=== PATIENT | male | born 1955 | race Caucasian/White ===

== ENCOUNTER 2018-03-25 19:13 | Inpatient (IN) | payer OTHER ==
--- NOTE | 2018-03-25 19:26 | PDOC ---
Rapid Medical Evaluation Chief Complaint: Back Pain Time Seen by Provider: 03/25/18 19:20 Medical Evaluation: 03/25/18 19:22 I have performed a brief in person evaluation of this patient. The patient present with a CC of: Back Pain Pt is a 62 YO male who states he has upper back pain x 5 days. Denies injury or trauma. Pertinent PE findings: Constitutional: pt is shaky at triage Lungs Clear Heart: Tachy, no murmurs, rubs or gallops Abd: Soft, non distended. MS: Pain to upper shoulders bilaterally Neuro: Appropriate affect Psych: Appropriate affect. Respiratory Protocol with Blood cultures and patient immediately to the back The patient will proceed to the ED for further evaluation: Discharge Disposition - Diagnosis Fever Qualifiers: Fever type: unspecified Qualified Code(s): R50.9 - Fever, unspecified - Referrals - Patient Instructions - Post Discharge Activity
[2018-03-25] MEDS ORDERED: ACETAMINOPHEN 1000 MG/100 ML VIAL (NON FORMULARY) IVPB ONE ×2 (19:48→21:54)
[2018-03-25] MEDS ORDERED: SODIUM CHLORIDE 0.9% 1000 ML INFUS.BAG IV ONE ×3 (19:48→21:04)
[2018-03-25] MEDS ORDERED: ALBUTEROL SO4 2.5/IPRATROPIUM 0.5 INH SOL 3 ML VIAL.NEB. NEB ONE ×2 (19:48→20:05)
--- NOTE | 2018-03-25 19:49 | PDOC ---
Attending Attestation - HPI HPI: 03/25/18 20:18 The patient is a 62 year old male with a significant past medical history of DM , HTN, and HLD who presents to the ED with complaints of generalized weakness for several days. As per son patient reports weakness and a dry cough in the morning for 5 days and states the patient developed a subjective fever 3 days ago. Patient states he hit his right left against a box and developed a wound a week ago. Patient reports a loss of appetite earlier today and states he only had juice. Denies chest pain or shortness of breath. Denies abdominal pain, nausea, vomiting, or diarrhea. Denies any other symptoms. - Physicial Exam PE: 03/25/18 20:18 Constitutional:+ Hot to touch. Awake,alert, oriented. No acute distress. Head: Normocephalic. Atraumatic Eyes: + Mild icterus of the eye. PERRL. EOMI. ENT: + Poor dentition, dry posterior pharynx. Posterior pharynx without exudates or erythema. Uvula midline. Neck: Supple. Full ROM. No lymphadenopathy. Cardiovascular: + Tachycardic. Regular rhythm. S1, S2 regular. Distal pulses are 2+ and symmetric. Pulmonary/Chest: + Tachypneic. Crackles at the bilateral bases, left greater than right. No wheezing. Abdominal: Soft and non-distended. There is no tenderness. No rebound, guarding or rigidity. No organomegaly. No palpable masses. Good bowel sounds. Back: No CVA tenderness. Musculoskeletal: No edema. No cyanosis. No clubbing. Full range of motion in all extremities. Nocalf tenderness. Radial/pedal pulses are intact and 2+ bilaterally Skin: + Erythematous half dollar size wound, fluctuant in the center, warm, no lymphangitic spread. Pedal pulses intact. Neurological: Alert and oriented to person, place, and time. Cranial nerves II -XII are grossly intact. Normal speech. Strength is grossly symmetric. No sensory deficits. Psychiatric: Good eye contact. Normal interaction, affect and behavior. <Lele Javier - Last Filed: 03/25/18 20:18> - Resident Resident Name: Sasha Garcia - ED Attending Attestation I have performed the following: I have examined & evaluated the patient, The case was reviewed & discussed with the resident, I agree w/resident's findings & plan, Exceptions are as noted - Critical Care Time Total Critical Care Time: 45 Critical Care Statement: The care of this patient involved high complexity decision making to prevent further life threatening deterioration of the patient 's condition and/or to evaluate & treat vital organ system(s) failure or risk of failure. - Medical Decision Making 03/25/18 19:49 I, Dr. Roxana Fatima, DO, attest that this document has been prepared under my direction and personally reviewed by me in its entirety. I further attest, that it accurately reflects all work, treatment, procedures and medical decision -making performed by me. 03/25/18 20:46 a/p: 62yo male with fever, 5 days of weakness -pt with cough in the am -no rhinorrhea, no sore throat, no abd pain, no n/v/d, urinary freq -pt with wound to RLE - will update tetanus, no lymphangitic spread -will send labs, cultures, FLU, cxr, ekg -will give ivf hydration, will start broad spectrum abx -will need admission 03/25/18 20:51 pt with white out of L lung on xray -broad spectrum abx ordered -will obtain ct chest -resident discussed the case with LUIS -wound culture obtained from RLE -pt with hypoxia - will obtain ABG -will discuss with ICU resident for admission 03/25/18 21:37 bedside ultrasound shows B lines - will place on bipap <Roxana Fatima - Last Filed: 03/25/18 21:38> Heart Score/ECG Review - ECG Intrepretation Comment:: 03/25/18 21:37 ekg: afib w rvr - per inpt admitting team will start iv amio <Roxana Fatima - Last Filed: 03/25/18 21:38> Attestations - Attestations 03/25/18 20:18 Documentation prepared by Lele Javier, acting as medical clerical assistant for Roxana Fatima DO <Lele Javier - Last Filed: 03/25/18 20:18>
--- NOTE | 2018-03-25 20:04 | PDOC ---
History of Present Illness - General Chief Complaint: Back Pain Stated Complaint: PAIN Time Seen by Provider: 03/25/18 19:20 - History of Present Illness Initial Comments: 03/25/18 19:57 62 year old male with a history of DMII, hypertension, hyperlipidemia, presents to the emergency room with complaints of weakness and endorses fever at home, non productive cough for the past three days. Denies chills, n, v, chest pain, shortness of breath, abdominal pain, diarrhea. In ED fever 102.8F, tachycardic, normotensive, hypoxic at 88% oxygen PMHx: as above PSX: none Social history: denies alcohol or drug use; lives in [place] Allergies: none 03/25/18 20:10 Past History - Past Medical History Allergies/Adverse Reactions: Allergies Allergy/AdvReac Type Severity Reaction Status Date / Time No Known Allergies Allergy Verified 03/25/18 19:28 COPD: No - Suicide/Smoking/Psychosocial Hx Smoking History: Never smoked Have you smoked in the past 12 months: No Information on smoking cessation initiated: No Hx Alcohol Use: No Drug/Substance Use Hx: No Substance Use Type: None Review of Systems - Review of Systems Comments:: 03/25/18 20:11 General: +fevers, no chills, no weight or appetite change, +malaise HEENT: No changes in vision, no changes in hearing, no congestion, no sore throat CV: No chest pain, no palpitations, no LE edema Pulm: No SOB, no cough, no wheezing GI: No nausea or vomiting, no change in bowel habits, no melena : No frequency, no urgency, no dysuria Musc: No back pain, no joint swelling, no recent injury Skin: No rash, no lesions, no erythema Endo: No excessive thirst, no heat/cold intolerance Heme: No unusual bruising or bleeding, no swollen glands Neuro: No syncope, no numbness/tingling, no focal weakness Vasc: No claudication Psych: No recent change in mood, no SI or HI 03/25/18 20:26 *Physical Exam - Vital Signs Last Vital Signs Temp Pulse Resp BP Pulse Ox 102.8 F H 110 H 24 H 131/70 88 L 03/25/18 19:22 03/25/18 19:22 03/25/18 19:22 03/25/18 19:22 03/25/18 19:22 - Physical Exam Comments: 03/25/18 20:11 General: Comfortable, no acute distress HEENT: PERRL, EOMI, MMM, voice normal, normal neck ROM, no LAD; dry mucus membranes Cards: RRR, no murmur appreciated Pulm: decreased BS b/l; mild bibasilar crackles Abd: Soft, nontender, +distended, +BS; : No CVA tenderness Rectal: Normal tone, no blood noted, no perianal lesions Ext: Atraumatic. No LE edema. ROM intact. Strength 5/5 and equal bilaterally; RLE anterior 2x2cm skin abcess with induration and surrounding erythema Vasc: Extremities WWP. Palpable radial and pedal pulses bilaterally Skin: Normal color, no rashes ; dry; Neuro: A&Ox3, CN grossly intact, normal speech, motor/sensory grossly intact and symmetric Psych: Mood appropriate to situation 03/25/18 20:27 ED Treatment Course - LABORATORY CBC & Chemistry Diagram: 03/25/18 19:55 03/25/18 19:55 - RADIOLOGY Radiology Studies Ordered: Category Date Time Status CXRPORT [CHEST X-RAY PORTABLE*] [RAD] Stat Radiology 03/25/18 19:50 Ordered Medical Decision Making - Critical Care Time Total Critical Care Time (minutes): 90 Critical Care Statement: The care of this patient involved high complexity decision making to prevent further life threatening deterioration of the patient 's condition and/or to evaluate & treat vital organ system(s) failure or risk of failure. - Medical Decision Making 03/25/18 20:29 This is a 62 year old male with a history of DMII, HTN, HLD with complaints of with fever and weakness. Sepsis protocol. Ancillary studies to rule out source of infection. #Sepsis secondary to PNA/left lung white out/; r/o pulm obstructing mass -white out left lung field -start IVF -rojas culture -IV antibiotics; van/zosyn -lactic acid; 2.4; f/u repeat -chest CT with contrast to rule out obstructing mass; #hypoxic respiratory failure sec to pna/ vs obstruction -abg -start high flow oxygen; titrate as for oxygen > 92% -started to desat on non rebreather #hyperglycemia secondary to DM with sepsis picture -will give IVF to hydrate #RLE anterior sahu abscess: -I&D at bedside; with puss -f/u wound culture Disposition: admit to ICU discussed with ICU resident and Toney attending 03/25/18 21:45 -patient now with new atrial fibrillation with rvr; IVP cardizem given; start amnio drip -start heparin drip started chadvasc2 score is 2; intermediate risk -bedside ultrasound echo done by ED attending; showing normal EF; pulm edema; with B lines -will start BiPAP f/u ABG 03/25/18 23:04 -patient still tachy in 180s on amnio driip; cardizem drip started; tirtate up as tolerated 03/26/18 03:46 Patient admitted to the ICU *DC/Admit/Observation/Transfer Diagnosis at time of Disposition: Acute respiratory failure with hypoxia Fever Qualifiers: Fever type: unspecified Qualified Code(s): R50.9 - Fever, unspecified Sepsis Qualifiers: Sepsis type: sepsis due to unspecified organism Qualified Code(s): A41.9 - Sepsis, unspecified organism - Discharge Dispostion Condition at time of disposition: Fair Decision to Admit order: Yes - Referrals - Patient Instructions - Post Discharge Activity
[2018-03-25] MEDS ORDERED: DIPHTH,PERTUSS(ACELL),TET 0.5 ML DISP.SYRIN IM ONE (20:05)
[2018-03-25] MEDS ORDERED: ACETAMINOPHEN INJECTION 100 ML IVPB ONE (20:05)
[2018-03-25] MEDS ORDERED: VANCOMYCIN 1 GRAM (PRE-DOCKED) 1,000 MG/250 ML BAG IVPB ONE ×2 (20:08→20:30)
[2018-03-25] MEDS ORDERED: PIPERACILLIN/TAZOB 4.5 GM 4.5 GM in DEXTROSE 5%-WATER 100 ML IVPB ONE (20:09)
[2018-03-25 20:10] LABS: BASO % 0.2 % (0-2.0); EOS % 0.1 % (0-4.5); HEMATOCRIT 41.4 % (35.4-49); LYMPH % 3.5 % (8-40); MCH 26.4 pg (25.7-33.7); MCHC 33.8 g/dl (32.0-35.9); MEAN CELL VOLUME 78.3 fl (80-96); MEAN PLT VOLUME 11.1 fl (7.5-11.1); MONO % 7.5 % (3.8-10.2); NEUT % 88.7 % (42.8-82.8); PLATELET COUNT 173 K/MM3 (134-434); RBC 5.29 M/mm3 (4.00-5.60); RDW 14.8 % (11.9-15.9); WHITE BLOOD COUNT 26.8 K/mm3 (4.0-10.0)
[2018-03-25 20:11] LABS: VENOUS PC02 32.5 mmHg (38-52); VENOUS PH 7.44 (7.32-7.42); VENOUS PO2 25.5 mmHg (28-48)
[2018-03-25 20:25] LABS: INR 1.47 (0.83-1.09); PROTHROMBIN TIME (PATIENT) 17.4 SEC (9.7-13.0)
[2018-03-25 20:26] LABS: URINE APPEARANCE CLEAR; URINE BILIRUBIN NEGATIVE (<2.0 mg/dL); URINE COLOR YELLOW; URINE GLUCOSE (UA) 3+ (NEGATIVE); URINE KETONE 1+ (NEGATIVE); URINE LEUK ESTERASE NEGATIVE (NEGATIVE); URINE NITRITE NEGATIVE (NEGATIVE); URINE PROTEIN 2+ (NEGATIVE); URINE UROBILINOGEN NEGATIVE mg/dL (0.2-1.0)
[2018-03-25 20:27] LABS: ACTIVATED PTT 34.4 SECONDS (25.2-36.5)
[2018-03-25] MEDS ORDERED: PIPERACILLIN/TAZOB 4.5 GM 4.5 GM/100 ML BAG IVPB ONE ×2 (20:29→20:31)
[2018-03-25 20:48] LABS: ALK PHOS 93 U/L (45-117); ANION GAP 17 MMOL/L (8-16); BILIRUBIN,TOTAL 1.2 mg/dL (0.2-1); BLOOD UREA NITROGEN 22 mg/dL (7-18); CALCIUM 7.7 mg/dL (8.5-10.1); CHLORIDE 96 mmol/L (98-107); CO2 21 mmol/L (21-32); CREATININE 1.2 mg/dL (0.55-1.3); SGPT/ALT 26 U/L (13-61); SODIUM 134 mmol/L (136-145); TOT PROT 6.2 g/dl (6.4-8.2)
[2018-03-25 20:49] LABS: POTASSIUM 4.4 mmol/L (3.5-5.1); SGOT/AST 27 U/L (15-37)
[2018-03-25 20:50] LABS: GLUCOSE,RANDOM 427 mg/dL (74-106)
[2018-03-25] MEDS ORDERED: INSULIN REGULAR HUMAN 100 UNITS/ML *VIAL SQ ONE (21:28)
[2018-03-25] MEDS ORDERED: SODIUM CHLORIDE 1,000 ML IV STA (21:29)
[2018-03-25] MEDS ORDERED: INSULIN REGULAR HUMAN 100 UNITS/ML *VIAL ONE (21:31)
[2018-03-25] MEDS ORDERED: dilTIAZem HCL 50 MG/10 ML - 10 ML VIAL IVPUSH ONE ×3 (21:39→23:11)
[2018-03-25] MEDS ORDERED: AMIODARONE HCL 150 MG/3 ML VIAL IVPUSH ONE (21:47)
[2018-03-25 21:56] LABS: ARTERIAL BLD GAS O2 SATURATION 94.2 % (90-98.9); ARTERIAL BLOOD GAS BASE EXCESS -6.1 meq/l (-2-2); ARTERIAL BLOOD GAS PCO2 27.5 mmHg (35-45); ARTERIAL BLOOD GAS PO2 80.6 mmHg (80-100)
[2018-03-25 21:58] LABS: ALLENS TEST POSITIVE
[2018-03-25] MEDS ORDERED: SODIUM CHLORIDE 1,000 ML IV SCH (22:00)
[2018-03-25] MEDS ORDERED: AMIODARONE IN DEXTROSE,ISO-OSM 360 MG/200 ML BAG IVPB SCH (22:00)
[2018-03-25 22:02] LABS: CARBOXYHEMOGLOBIN 0.6 gm% (0.5-2.0)
[2018-03-25] MEDS ORDERED: dilTIAZem HCL 125 MG/25 ML - 25 ML VIAL ONE (22:12)
[2018-03-25 22:18] LABS: PLATELET ESTIMATE ADEQUATE
[2018-03-25 22:23] LABS: PHOSPHOROUS 3.2 mg/dL (2.5-4.9)
[2018-03-25 22:24] LABS: MAGNESIUM 1.7 mg/dL (1.8-2.4)
[2018-03-25] MEDS ORDERED: HEPARIN NA (PORCINE) 5,000 UNITS/ML 1ML VIAL IVPUSH PRN ×2 (22:34)
[2018-03-25] MEDS ORDERED: dilTIAZem HCL 50 MG/10 ML - 10 ML VIAL ONE (22:42)
--- NOTE | 2018-03-25 22:48 | HP ---
CHIEF COMPLAINT: shortness of breath, fever, chills, weakness PCP: [facility] HISTORY OF PRESENT ILLNESS: Patient is a 62 year old male with history of DM, HTN, HLD presents with complaint of shortness of breath for past five days. Denies inciting event, or sick contacts. Endorses subjective fevers, chills, generalized weakness and malaise. In addition endorses non productive cough for the past three days. He has not received flu vaccine or pneumonia vaccine. Denies, chest pain, palpitations, abdominal pain, nausea, vomiting, diarrhea, constipation, fall, loss of consciousness. Admits that he hurt his right lower extremity against a box a week ago while at work, however did not think much of it. He did not attempt to cover the wound. Denies pain or any purulent or sanguinous drainage from the wound. ER course was notable for: (1) Vancomycin, Zosyn, Ofirmev, (2) EKG: Afib at 154 bpm, QTc 483ms, no prior history of Afib (3) Chest xray- white out left lung. WBC 26.8. 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 Lives alone at home in the [place]. Family History: denies significant family history. Allergies No Known Allergies Allergy (Verified 03/25/18 19:28) HOME MEDICATIONS: REVIEW OF SYSTEMS As per HPI PHYSICAL EXAMINATION Vital Signs - 24 hr 03/25/18 03/25/18 03/25/18 19:22 20:55 22:06 Temperature 102.8 F H Pulse Rate 110 H Pulse Rate [ 107 H Apical] Respiratory 24 H 36 H Rate Blood Pressure 131/70 Blood Pressure 141/69 [Left Arm] O2 Sat by Pulse 88 L 93 L 98 Oximetry (%) GENERAL: Diaphoretic, male. Awake, alert, and fully oriented, in respiratory distress. HEAD: Normal with no signs of trauma. EYES: Pupils equal, round and reactive to light, extraocular movements intact without nystagmus. Sclera anicteric, conjunctiva clear b/l. EARS, NOSE, THROAT: Oropharynx clear without exudates. Dry mucous membranes. NECK: Normal range of motion, supple without lymphadenopathy. LUNGS: Patient is using accessory muscles of respiration. Tachypnic. Good inspiratory effort with poor air entry worse on left side. Rhonchi and crackles auscultated b/l. No wheezing. HEART: Tachycardic. Irregular rate and rhythm. Normal S1 and S2 without murmur, rub or gallop. ABDOMEN: Distended, firm. Nontender to light and deep palpation. Normoactive bowel sounds X4 quadrants. No guarding, no rebound tenderness. No hepatomegaly palpated or percussed. MUSCULOSKELETAL: Normal range of motion at all joints. No bony deformities or tenderness. UPPER EXTREMITIES: 2+ radial pulses b/l, warm, well-perfused. LOWER EXTREMITIES: 2+ dorsalis pedis pulses, warm, No calf tenderness. No peripheral edema n/l. NEUROLOGICAL: Cranial nerves II-XII intact. Normal speech. PSYCHIATRIC: Cooperative. Good eye contact. Appropriate mood and affect. SKIN: Diaphoretic. 1cm x 1cm Lesion noted right anterior leg, erythematous. No drainage, no bleeding. Nontender to palpation. Additional 2cm laceration lower right extremity, healing. Laboratory Results - last 24 hr 03/25/18 03/25/18 03/25/18 19:55 19:55 19:55 WBC 26.8 H RBC 5.29 Hgb 14.0 Hct 41.4 MCV 78.3 L MCH 26.4 MCHC 33.8 RDW 14.8 Plt Count 173 MPV 11.1 Absolute Neuts (auto) 23.8 H Neutrophils % 88.7 H Neutrophils % (Manual) 86.0 H Band Neutrophils % 8.0 Lymphocytes % 3.5 L Lymphocytes % (Manual) 4.0 L Monocytes % 7.5 Monocytes % (Manual) 2 L Eosinophils % 0.1 Eosinophils % (Manual) 0.0 Basophils % 0.2 Basophils % (Manual) 0.0 Nucleated RBC % 0 Platelet Estimate Adequate Platelet Comment Large platelets PT with INR 17.40 H INR 1.47 H PTT (Actin FS) 34.4 Puncture Site ABG pH ABG pCO2 at Pt Temp ABG pO2 at Pt Temp ABG HCO3 ABG O2 Sat (Measured) ABG O2 Content ABG Base Excess Petey Test VBG pH 7.44 H POC VBG pCO2 32.5 L POC VBG pO2 25.5 L Mixed VBG HCO3 21.7 Carboxyhemoglobin Methemoglobin Oxygen Flow Rate Sodium Potassium Chloride Carbon Dioxide Anion Gap BUN Creatinine Creat Clearance w eGFR Random Glucose Lactic Acid Calcium Phosphorus Magnesium Total Bilirubin AST ALT Alkaline Phosphatase Troponin I Total Protein Albumin Urine Color Urine Appearance Urine pH Ur Specific [place] Urine Protein Urine Glucose (UA) Urine Ketones Urine Blood Urine Nitrite Urine Bilirubin Urine Urobilinogen Ur Leukocyte Esterase Urine WBC (Auto) Urine RBC (Auto) 03/25/18 03/25/18 03/25/18 19:55 19:55 20:10 WBC RBC Hgb Hct MCV MCH MCHC RDW Plt Count MPV Absolute Neuts (auto) Neutrophils % Neutrophils % (Manual) Band Neutrophils % Lymphocytes % Lymphocytes % (Manual) Monocytes % Monocytes % (Manual) Eosinophils % Eosinophils % (Manual) Basophils % Basophils % (Manual) Nucleated RBC % Platelet Estimate Platelet Comment PT with INR INR PTT (Actin FS) Puncture Site ABG pH ABG pCO2 at Pt Temp ABG pO2 at Pt Temp ABG HCO3 ABG O2 Sat (Measured) ABG O2 Content ABG Base Excess Petey Test VBG pH POC VBG pCO2 POC VBG pO2 Mixed VBG HCO3 Carboxyhemoglobin Methemoglobin Oxygen Flow Rate Sodium 134 L Potassium 4.4 Chloride 96 L Carbon Dioxide 21 Anion Gap 17 H BUN 22 H Creatinine 1.2 Creat Clearance w eGFR > 60 Random Glucose 427 H* Lactic Acid 2.4 H* Calcium 7.7 L Phosphorus Magnesium Total Bilirubin 1.2 H AST 27 ALT 26 Alkaline Phosphatase 93 Troponin I 0.02 Total Protein 6.2 L Albumin 2.0 L Urine Color Yellow Urine Appearance Clear Urine pH 6.0 Ur Specific [place] 1.028 Urine Protein 2+ H Urine Glucose (UA) 3+ H Urine Ketones 1+ H Urine Blood 2+ H Urine Nitrite Negative Urine Bilirubin Negative Urine Urobilinogen Negative Ur Leukocyte Esterase Negative Urine WBC (Auto) 2 Urine RBC (Auto) 9 03/25/18 03/25/18 03/25/18 20:50 21:00 21:35 WBC RBC Hgb Hct MCV MCH MCHC RDW Plt Count MPV Absolute Neuts (auto) Neutrophils % Neutrophils % (Manual) Band Neutrophils % Lymphocytes % Lymphocytes % (Manual) Monocytes % Monocytes % (Manual) Eosinophils % Eosinophils % (Manual) Basophils % Basophils % (Manual) Nucleated RBC % Platelet Estimate Platelet Comment PT with INR INR PTT (Actin FS) Puncture Site Right radial ABG pH 7.40 ABG pCO2 at Pt Temp 27.5 L ABG pO2 at Pt Temp 80.6 ABG HCO3 16.8 L ABG O2 Sat (Measured) 94.2 ABG O2 Content 18.3 ABG Base Excess -6.1 L Petey Test Positive VBG pH POC VBG pCO2 POC VBG pO2 Mixed VBG HCO3 Carboxyhemoglobin 0.6 Methemoglobin 1.5 Oxygen Flow Rate No Result Required. Sodium Potassium Chloride Carbon Dioxide Anion Gap BUN Creatinine Creat Clearance w eGFR Random Glucose Lactic Acid Calcium Phosphorus 3.2 Magnesium 1.7 L Total Bilirubin AST ALT Alkaline Phosphatase Troponin I Total Protein Albumin Urine Color Urine Appearance Urine pH Ur Specific [place] Urine Protein Urine Glucose (UA) Urine Ketones Urine Blood Urine Nitrite Urine Bilirubin Urine Urobilinogen Ur Leukocyte Esterase Urine WBC (Auto) Urine RBC (Auto) ASSESSMENT/PLAN: Patient is a 62 year old male with history of DM, HTN, HLD presents with complaint of shortness of breath for past five days. Sepsis secondary to pneumonia -Chest xray shows white out of left lung. -Patient received Vancomycin and Zosyn in ED -Begin Ceftriaxone, Azithromycin, Clindamycin -Lactic acid 2.4. Will follow. -IV normal saline 2,500mL bolus -ID consult (Dr. Brand) -Pulmonology consult (Dr. Stephens) -Infectious disease consult (Dr. Brand) -F/U chest CT Acute respiratory failure -Likely secondary to the pneumonia -Patient currently saturating 98% on BiPAP FiO2 100% -F/U ABG Afib -Patient denies history of Afib, or any cardiac history in past. -CHADsVASC score of 2 -Heparin drip -Amiodarone drip, and 150mg IV push -Diltiazem drip, and 50mg IV push -Cardiac monitoring -F/U Cardiology consult (Dr. Becerra) Diabetes mellitus, likely DKA -Received 20 units novolog in ED. -Insulin drip initiated -Blood glucose fingerstick Q1H -BMP Q4H -IV normal saline +20meq KCL at 100mL/ hour -F/U HbA1c Right lower extremity wound -Patient received Boostrix in ED -F/U wound culture -F/U Infectious disease consult (Dr. Brand) Elevated INR -Patient denies taking Coumadin, or any blood thinners. Denies alcohol use. -F/U CT abdomen/ pelvis to evaluate for possible hepatic pathology. Hypertension -Patient unsure which medication he takes for his blood pressure. -Patient will require medicine reconciliation to reinstate home medications. FEN -IV normal saline +20meq KCL at 100mL/ hour -Follow CMP -NPO as patient currently on BiPAP Prophylaxis -Patient is on Heparin drip for Afib Disposition -Admit to ICU for care Visit type - Emergency Visit Emergency Visit: Yes ED Registration Date: 03/25/18 Care time: The patient presented to the Emergency Department on the above date and was hospitalized for further evaluation of their emergent condition. - New Patient This patient is new to me today: Yes Date on this admission: 03/26/18 - Critical Care Critical Care patient: Yes Total Critical Care Time (in minutes): 45 Critical Care Statement: The care of this patient involved high complexity decision making to prevent further life threatening deterioration of the patient 's condition and/or to evaluate & treat vital organ system(s) failure or risk of failure.
[2018-03-25] MEDS ORDERED: AMIODARONE HCL 150 MG/3 ML VIAL ONE (22:49)
[2018-03-25] MEDS ORDERED: DILTIAZEM INJECTION 125 MG in DEXTROSE 5%-WATER - 100 ML IVPB SCH (23:15)
[2018-03-25] MEDS ORDERED: HEPARIN INFUSION - 25,000 UNITS/500 ML INFUS.BAG IVPB ONE (23:28)
[2018-03-25] MEDS: HEPARIN - 25,000 UNIT in SODIUM CHLORIDE 495 ML IV SCH (23:54)
[2018-03-26] MEDS ORDERED: INSULIN REGULAR HUMAN 100 UNITS/ML *VIAL SQ ONE ×2 (00:16→06:32)
[2018-03-26 00:24] LABS: ARTERIAL BLD GAS O2 SATURATION 94.7 % (90-98.9); ARTERIAL BLOOD GAS BASE EXCESS -6.1 meq/l (-2-2); ARTERIAL BLOOD GAS PCO2 29.8 mmHg (35-45); ARTERIAL BLOOD GAS PO2 84.1 mmHg (80-100); ARTERIAL BLOOD GAS pH 7.38 (7.35-7.45)
[2018-03-26] MEDS ORDERED: CLINDAMYCIN 900 MG PREMIX IVPB 900 MG/50 ML BAG IVPB ONE ×2 (00:24→06:15)
[2018-03-26] MEDS: CLINDAMYCIN 900 MG PREMIX IVPB 900 MG/50 ML BAG IVPB SCH ×3 (00:30→13:16)
[2018-03-26] MEDS ORDERED: INSULIN REGULAR HUMAN 100 UNITS/ML *VIAL ONE ×2 (00:32→04:22)
[2018-03-26] MEDS ORDERED: MAGNESIUM SULF 50% (8.12 MEQ/2 ML-1 GM VIAL) IVPB ONE ×2 (00:37→02:06)
[2018-03-26] MEDS ORDERED: MAGNESIUM 1GM/D5W - 1 GM/100 ML IVPB IVPB ONE (01:02)
[2018-03-26] MEDS ORDERED: PIPERACILLIN/TAZOB 4.5 GM 4.5 GM in DEXTROSE 5%-WATER 100 ML IVPB SCH (03:00)
[2018-03-26] MEDS ORDERED: INSULIN REGULAR 100 UNITS in SODIUM CHLORIDE 99 ML IVPB SCH (03:45)
[2018-03-26 05:37] LABS: BASO % 0.4 % (0-2.0); EOS % 0.2 % (0-4.5); HEMATOCRIT 39.6 % (35.4-49); HEMOGLOBIN 13.3 GM/dL (11.7-16.9); LYMPH % 4.2 % (8-40); MCH 26.4 pg (25.7-33.7); MCHC 33.7 g/dl (32.0-35.9); MEAN CELL VOLUME 78.2 fl (80-96); MEAN PLT VOLUME 10.2 fl (7.5-11.1); MONO % 6.6 % (3.8-10.2); NEUT % 88.6 % (42.8-82.8); PLATELET COUNT 146 K/MM3 (134-434); RBC 5.07 M/mm3 (4.00-5.60); RDW 14.7 % (11.9-15.9); WHITE BLOOD COUNT 24.7 K/mm3 (4.0-10.0)
--- NOTE | 2018-03-26 05:38 | PN ---
Teaching Attending Note Name of Resident: Regla Murry ATTENDING PHYSICIAN STATEMENT I saw and evaluated the patient. I reviewed the resident's note and discussed the case with the resident. I agree with the resident's findings and plan as documented. SUBJECTIVE: Seen and examined; he is a 62 y/o AAM with a PMH significant for HTN, HLD, DM. He presents to the ER for 5 days of worsening SOB, malaise, fatigue. He is a generally active and healthy individual per the son. He was found to be tachycardic 150+ with whiteout of the L-lung on the CXR alongside marked hypoxia. He is Korean speaking only; myself, nurse, and son were present for translation. He denied chest pain and was actually indicating he felt better than he did earlier in the day. He was found to have an anion gap positive metabolic acidosis with respiratory compensation, negative flu. CT chest was obtained once the patient was found to have a bilateral pneumonia with L side with near complete opacification on the preliminary read with the final report pending. Initially in the ER I requested the patient to be placed on amiodarone for atrial fibrillation after he recieved the 30cc/kg and electrolytes were optimized. He got the bolus and was started on protocol. As he was still down in the ER he was started on diltiazem by ER staff as the HR hadn't decreased. He was also started on BiPap. Aggressive hydration and a push of IV insulin were ordered initially for the hyperglycemia; IM service started the patient on an insulin drip with additional bolus of 8. Planning to move him to a [facility] , but he ended up desaturating on BiPap and the decision was made to intubate. He has 3 good #18 peripherals but now they are all used up. He thus was consented for CVC at the end of the shift to expidite management for day team. ROS done and negative if not in HPI PMH and PSH per chart Social history lives at home with family, no EtOH, no tobacco FH asked and noncontributory OBJECTIVE: AAOx3, NAD, resting in bed. Tachypnic Tachycardic with irregular rhythm, no rosangela mgr Left side with almost no air motion, crackles scattered throughout right, sym expansion Trachea midline, no JVD NT ND +BS all 4 quads No edema; bandage over LE wound CN2-12 grossly intact, sensory and motor intact, no FND Appropriate mood and affect ABG with metabolic acidosis with respiratory compensation BMP shows anion gap positive metabolic acidosis with glucose 400s CBC reviewed; WBC 26 with neutrophilia, no anemia CXR shows whiteout of lung; CT read pending No prior records at this facility Negative flu Cultures pending ASSESSMENT AND PLAN: 1) Acute Hypoxic Respiratory Failure -Secondary to pneumonia (community acquired; awaiting final read to discuss any occult findings) -Intubating, managing in ICU, defer to pulmonary. Likely the driving force of the patient's tachycardia (demand, etc.); please see #4 for discussion regarding this 2) Atrial Fibrillation with RVR -Likely spurred by the acute infectious process, RVR likely made worse due to low O2 driving up demand. -I placed him on Amio drip; ER placed on diltiazem after this as it was decided that the HR was still too high. On IV infusions. CHADSVASC2 is 2 placing him in moderately high qualifying him for anticoag and his bleed risk is low so will place him on heparin ggt. -Ideally want him off the diltiazem due to the underlying likely septic process. Due to this we will go ahead and continue the amio protocol, optimize respiratory status, and try to get him off diltiazem. -Consulting cardiology, resident has reached out -Checking echo 3) Metabolic acidosis with likely Diabetic Ketoacidosis -Driven by pneumonia; hyperglycemia and acidosis didnt resolve with fluids and initial ER bolus so we rebolused and placed on DKA protocol. Monitor and treat as needed. Place on SSI and long acting when off drip. 4) Left Lung Whiteout likely 2/2 PNA -Likely driving the entire clinical presentation. Would be CAP; it was difficult to rule out any underlying masses or post obstructive picture so we will cover for CAP with clindamycin in addition to cef and azithro due to the risk of anaerobes. Cultures blood and sputum have been sent. -Consult ID in the morning -Management of the acute hypoxic RF from pulmonary medicine; intubate and place mechanical ventillation 5) Hypoalbuminemia -Check prealbumin, poor prognostic marker 6) RLE Wound -Drained by ER resident and sent for culture; looked minor 7) HTN -Hold antihypertensives 8) HLD -Nonacute 9) DM -Per DKA management Full Code
--- NOTE | 2018-03-26 05:40 | CONSULT ---
Consultation: REQUESTING PROVIDER: Dr. Kuhn CONSULT REQUEST: We have been asked to medically evaluate this patient for Sepsis, DKA, Acute hypoxic respiratory failure. HISTORY OF PRESENT ILLNESS: Patient is a 62 year old male with a PMHx of NIDDMII, HTN, HLD who presented to the ED for worsening shortness of breath that started five days ago associated with fever, chills, and weakness. Patient also reports a constant non- productive cough that started 3-4 days ago that worsened his shortness of breath , prompting this hospital visit. Patient denies being around sick patients recently. Denies receiving the flu vaccine this season or the pneumonia vaccine. Patient. Patient denies any history of smoking of cancer in the family, specifically lung cancer. Patient is currently resting in bed and offers no other complaints except for some shortness of breath that improved with BIPAP. However, patient still remains tachypneic. Otherwise, patient denies any chest pain, palpitations, abdominal pain, nausea, vomiting, loss of consciousness, diarrhea, constipation, dysuria, hematuria, urgency, frequency. In the ED patient was found to be septic with fever of 102.8, tachycardic in the 140's and Afib w/rvr, hypoxic at 88% on oxygen. BMP showing anion gap and glucose level of 427 with insulin drip started. Chest X-Ray revealed white out of left lung with CT pending. Patient remained tachycardic in the 140's, reaching to 180's and was started on Cardizem and Amiodarone drip. Patient was given Vancomycin, ZOsyn, and IV Tylenol and admitted to ICU for further monitoring and management. PMHx: NIDDMII, HTN, HLD PSHx: Denies Social Hx: Lives alone. 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 Denies alcohol use Denies illicit drug use Denies history of smoking Family Hx: Denies any family history of medical problems or cancers Allergies: NKDA REVIEW OF SYSTEMS: CONSTITUTIONAL: fever, chills, generalized weakness, malaise Absent: diaphoresis, loss of appetite, weight change HEENT: Absent: rhinorrhea, nasal congestion, throat pain, throat swelling, difficulty swallowing, mouth swelling, ear pain, eye pain, visual changes CARDIOVASCULAR: Absent: chest pain, syncope, palpitations, irregular heart rate, lightheadedness , peripheral edema RESPIRATORY: cough, shortness of breath, dyspnea with exertion Absent: orthopnea, wheezing, stridor, hemoptysis GASTROINTESTINAL: Absent: abdominal pain, abdominal distension, nausea, vomiting, diarrhea, constipation, melena, hematochezia GENITOURINARY: Absent: dysuria, frequency, urgency, hesitancy, hematuria, flank pain, genital pain MUSCULOSKELETAL: Absent: myalgia, arthralgia, joint swelling, back pain, neck pain SKIN: Absent: rash, itching, pallor HEMATOLOGIC/IMMUNOLOGIC: Absent: easy bleeding, easy bruising, lymphadenopathy, frequent infections ENDOCRINE: Absent: unexplained weight gain, unexplained weight loss, heat intolerance, cold intolerance NEUROLOGIC: Absent: headache, focal weakness or paresthesias, dizziness, unsteady gait, seizure, mental status changes, bladder or bowel incontinence PSYCHIATRIC: Absent: anxiety, depression, suicidal or homicidal ideation, hallucinations. PHYSICAL EXAMINATION Vital Signs - 24 hr 03/25/18 03/25/18 03/25/18 19:13 19:22 20:55 Temperature 103.0 F H 102.8 F H Pulse Rate 110 H Pulse Rate [ 107 H Apical] Respiratory 24 H 36 H Rate Blood Pressure 131/70 Blood Pressure 141/69 [Left Arm] O2 Sat by Pulse 100 88 L 93 L Oximetry (%) 03/25/18 03/25/18 03/26/18 21:58 22:06 00:37 Temperature 98.7 F Pulse Rate Pulse Rate [ 142 H Apical] Respiratory 38 H Rate Blood Pressure Blood Pressure 110/91 [Left Arm] O2 Sat by Pulse 100 98 97 Oximetry (%) 03/26/18 02:37 Temperature Pulse Rate Pulse Rate [ Apical] Respiratory Rate Blood Pressure Blood Pressure [Left Arm] O2 Sat by Pulse 97 Oximetry (%) GENERAL: Awake, alert, and fully oriented, tachypneic but in no acute distress. HEAD: Normal with no signs of trauma. EYES: Pupils equal, round and reactive to light, extraocular movements intact, sclera anicteric, conjunctiva clear. EARS, NOSE, THROAT: Oropharynx clear without exudates. Dry mucous membranes. NECK: (-) lymphadenopathy, JVD, or masses. LUNGS: Crackles and Rhonchi bilaterally with use of accessory muscles and tachypneic in the high 30's. Decreased breath sounds of left side. HEART: Tachycardic with regular rhythm ABDOMEN: Soft, obese, nontender, not distended, normoactive bowel sounds, no guarding, no rebound, no masses. No hepatomegaly or splenomegaly. MUSCULOSKELETAL: No CVA tenderness. UPPER EXTREMITIES: No peripheral edema. LOWER EXTREMITIES: 2+ pulses, warm, well-perfused. No calf tenderness. No peripheral edema. NEUROLOGICAL: Cranial nerves II-XII intact. mild difficulty when speaking PSYCHIATRIC: Cooperative. Good eye contact. Appropriate mood and affect. SKIN: (+) erythemetous 1x1 lesion with a 1-2 cm laceration in the right anterior leg, (-) drainage Laboratory Results - last 24 hr 03/25/18 03/25/18 03/25/18 19:55 19:55 19:55 WBC 26.8 H RBC 5.29 Hgb 14.0 Hct 41.4 MCV 78.3 L MCH 26.4 MCHC 33.8 RDW 14.8 Plt Count 173 MPV 11.1 Absolute Neuts (auto) 23.8 H Neutrophils % 88.7 H Neutrophils % (Manual) 86.0 H Band Neutrophils % 8.0 Lymphocytes % 3.5 L Lymphocytes % (Manual) 4.0 L Monocytes % 7.5 Monocytes % (Manual) 2 L Eosinophils % 0.1 Eosinophils % (Manual) 0.0 Basophils % 0.2 Basophils % (Manual) 0.0 Nucleated RBC % 0 Platelet Estimate Adequate Platelet Comment Large platelets PT with INR 17.40 H INR 1.47 H PTT (Actin FS) 34.4 Anticoagulation Therapy Puncture Site ABG pH ABG pCO2 at Pt Temp ABG pO2 at Pt Temp ABG HCO3 ABG O2 Sat (Measured) ABG O2 Content ABG Base Excess Petey Test VBG pH 7.44 H POC VBG pCO2 32.5 L POC VBG pO2 25.5 L Mixed VBG HCO3 21.7 Carboxyhemoglobin Methemoglobin O2 Delivery Device Oxygen Flow Rate Vent Mode Vent Rate Mechanical Rate Pressure Support Vent Sodium Potassium Chloride Carbon Dioxide Anion Gap BUN Creatinine Creat Clearance w eGFR POC Glucometer Random Glucose Lactic Acid Calcium Phosphorus Magnesium Total Bilirubin AST ALT Alkaline Phosphatase Troponin I Total Protein Albumin Urine Color Urine Appearance Urine pH Ur Specific [place] Urine Protein Urine Glucose (UA) Urine Ketones Urine Blood Urine Nitrite Urine Bilirubin Urine Urobilinogen Ur Leukocyte Esterase Urine WBC (Auto) Urine RBC (Auto) 03/25/18 03/25/18 03/25/18 19:55 19:55 20:10 WBC RBC Hgb Hct MCV MCH MCHC RDW Plt Count MPV Absolute Neuts (auto) Neutrophils % Neutrophils % (Manual) Band Neutrophils % Lymphocytes % Lymphocytes % (Manual) Monocytes % Monocytes % (Manual) Eosinophils % Eosinophils % (Manual) Basophils % Basophils % (Manual) Nucleated RBC % Platelet Estimate Platelet Comment PT with INR INR PTT (Actin FS) Anticoagulation Therapy Puncture Site ABG pH ABG pCO2 at Pt Temp ABG pO2 at Pt Temp ABG HCO3 ABG O2 Sat (Measured) ABG O2 Content ABG Base Excess Petey Test VBG pH POC VBG pCO2 POC VBG pO2 Mixed VBG HCO3 Carboxyhemoglobin Methemoglobin O2 Delivery Device Oxygen Flow Rate Vent Mode Vent Rate Mechanical Rate Pressure Support Vent Sodium 134 L Potassium 4.4 Chloride 96 L Carbon Dioxide 21 Anion Gap 17 H BUN 22 H Creatinine 1.2 Creat Clearance w eGFR > 60 POC Glucometer Random Glucose 427 H* Lactic Acid 2.4 H* Calcium 7.7 L Phosphorus Magnesium Total Bilirubin 1.2 H AST 27 ALT 26 Alkaline Phosphatase 93 Troponin I 0.02 Total Protein 6.2 L Albumin 2.0 L Urine Color Yellow Urine Appearance Clear Urine pH 6.0 Ur Specific [place] 1.028 Urine Protein 2+ H Urine Glucose (UA) 3+ H Urine Ketones 1+ H Urine Blood 2+ H Urine Nitrite Negative Urine Bilirubin Negative Urine Urobilinogen Negative Ur Leukocyte Esterase Negative Urine WBC (Auto) 2 Urine RBC (Auto) 9 03/25/18 03/25/18 03/25/18 20:50 21:00 21:35 WBC RBC Hgb Hct MCV MCH MCHC RDW Plt Count MPV Absolute Neuts (auto) Neutrophils % Neutrophils % (Manual) Band Neutrophils % Lymphocytes % Lymphocytes % (Manual) Monocytes % Monocytes % (Manual) Eosinophils % Eosinophils % (Manual) Basophils % Basophils % (Manual) Nucleated RBC % Platelet Estimate Platelet Comment PT with INR INR PTT (Actin FS) Anticoagulation Therapy Puncture Site Right radial ABG pH 7.40 ABG pCO2 at Pt Temp 27.5 L ABG pO2 at Pt Temp 80.6 ABG HCO3 16.8 L ABG O2 Sat (Measured) 94.2 ABG O2 Content 18.3 ABG Base Excess -6.1 L Petey Test Positive VBG pH POC VBG pCO2 POC VBG pO2 Mixed VBG HCO3 Carboxyhemoglobin 0.6 Methemoglobin 1.5 O2 Delivery Device Oxygen Flow Rate No Result Required. Vent Mode Vent Rate Mechanical Rate Pressure Support Vent Sodium Potassium Chloride Carbon Dioxide Anion Gap BUN Creatinine Creat Clearance w eGFR POC Glucometer Random Glucose Lactic Acid Calcium Phosphorus 3.2 Magnesium 1.7 L Total Bilirubin AST ALT Alkaline Phosphatase Troponin I Total Protein Albumin Urine Color Urine Appearance Urine pH Ur Specific [place] Urine Protein Urine Glucose (UA) Urine Ketones Urine Blood Urine Nitrite Urine Bilirubin Urine Urobilinogen Ur Leukocyte Esterase Urine WBC (Auto) Urine RBC (Auto) 03/25/18 03/26/18 03/26/18 22:15 00:10 00:12 WBC RBC Hgb Hct MCV MCH MCHC RDW Plt Count MPV Absolute Neuts (auto) Neutrophils % Neutrophils % (Manual) Band Neutrophils % Lymphocytes % Lymphocytes % (Manual) Monocytes % Monocytes % (Manual) Eosinophils % Eosinophils % (Manual) Basophils % Basophils % (Manual) Nucleated RBC % Platelet Estimate Platelet Comment PT with INR INR PTT (Actin FS) Anticoagulation Therapy No Result Required. Puncture Site No Result Required. ABG pH 7.38 ABG pCO2 at Pt Temp 29.8 L ABG pO2 at Pt Temp 84.1 ABG HCO3 17.4 L ABG O2 Sat (Measured) 94.7 ABG O2 Content 17.4 ABG Base Excess -6.1 L Petey Test No Result Required. VBG pH POC VBG pCO2 POC VBG pO2 Mixed VBG HCO3 Carboxyhemoglobin Methemoglobin O2 Delivery Device No Result Required. Oxygen Flow Rate No Result Required. Vent Mode No Result Required. Vent Rate No Result Required. Mechanical Rate No Result Required. Pressure Support Vent No Result Required. Sodium Potassium Chloride Carbon Dioxide Anion Gap BUN Creatinine Creat Clearance w eGFR POC Glucometer [phone] Random Glucose Lactic Acid 1.7 Calcium Phosphorus Magnesium Total Bilirubin AST ALT Alkaline Phosphatase Troponin I Total Protein Albumin Urine Color Urine Appearance Urine pH Ur Specific [place] Urine Protein Urine Glucose (UA) Urine Ketones Urine Blood Urine Nitrite Urine Bilirubin Urine Urobilinogen Ur Leukocyte Esterase Urine WBC (Auto) Urine RBC (Auto) Active Medications Generic Name Dose Route Start Last Admin Trade Name Freq PRN Reason Stop Dose Admin Chlorhexidine Gluconate 1 applic 03/26/18 22:00 Hibiclens For Decolonization - TP HS [facility] Heparin Sodium (Porcine) 1,000 unit 03/25/18 22:34 Heparin - IVPUSH PRN PRN Heparin Heparin Sodium (Porcine) 5,000 unit 03/25/18 22:34 Heparin - IVPUSH PRN PRN Heparin Amiodarone HCl/Dextrose 360 mg in 200 mls @ 16.667 mls/hr 03/25/18 22:00 23:54 Nexterone 360 Mg/200 Ml Bag IVPB 0.5 mg/min TITR [facility] 16.667 mls/hr Administration Protocol 0.5 MG/MIN Sodium Chloride 1,000 mls @ 100 mls/hr 03/25/18 22:00 03/25/18 22:40 Normal Saline - IV 100 mls/hr ASDIR [facility] Administration Heparin Sodium (Porcine) 25, 500 mls @ 20 mls/hr 03/25/18 22:45 03/25/18 23: 54 000 unit/ Sodium Chloride IV 1,000 unit/hr TITR [facility] 20 mls/hr Administration Protocol 1,000 UNIT/HR Azithromycin 500 mg in 250 mls @ 250 mls/hr 03/26/18 10:00 Zithromax 500mg Ivpb (Pre-Docked) IVPB DAILY [facility] Clindamycin Phosphate 900 mg in 50 mls @ 100 mls/hr 03/25/18 23:00 03/26/18 00:30 Cleocin 900 Mg Premix Ivpb - IVPB 100 mls/hr TID [facility] Administration Protocol Diltiazem HCl 125 mg/ Dextrose 125 mls @ 5 mls/hr 03/25/18 23:15 03/25/18 23: 55 IVPB 5 mg/hr TITR [facility] 5 mls/hr Administration Protocol 5 MG/HR Insulin Human Regular 100 100 mls @ 8.02 mls/hr 03/26/18 03:45 units/ Sodium Chloride IVPB TITR [facility] Protocol 0.1 UNITS/KG/HR Insulin Aspart 1 vial 03/26/18 07:00 Novolog Vial Sliding Scale - SQ ACHS [facility] Protocol Mupirocin 1 applic 03/26/18 10:00 Bactroban Ointment (For Decolonization) - NS 03/31/18 09:59 BID [facility] ASSESSMENT/PLAN: Patient is a 62 year old male who presented for shortness of breath, fever, chills, malaise and was found to have complete left lung white out on CXR and DKA. Patient admitted to ICU for further monitoring and management. NEURO: -Awake, Alert, full oriented. Non focal exam. PULMONARY #Acute Hypoxic Respiratory failure -Likely secondary to Post obstructive Pneumonia from total white out and mass in the left lung. Likely from malignancy. -Patient presented with 02 sat of 88% on 02 and is currently on BIPAP saturating in the low 90's and tahcypneic in the high 30's -CT official read pending. Patient showing left sided mass with bilateral Pneumonia and pleural effusions. CT contrast not done -Patient given Zosyn/Vanco in the ED. Primary team started Ceftriaxone, Azithromycin, and Clindamycin. -Duo-Neb PRN -Maintain Sp02 >95% -Will need lung biopsy once stable to rule out malignancy. Will also need abdominal/Pelvic CT to rule out metastatic disease. Oncology consult once malignancy is confirmed with biopsy -Chest PT -Repeat ABG -Urine legionella and mycoplasma -Low threshold for intubation INFECTIOUS DISEASE #Sepsis Secondary to Bilateral Pneumonia -Likely post obstructive pneumonia from lung mass- possible lung malignancy -Chest X-Ray showing left lung mass and complete left sided white out. CT reveals bilateral PNA with pleural effusions -Tachycardic, febrile, leukocytosis, tachypneic, with lactic acidosis. BP borderline hypotensive -Continue Ceftriaxone, clindamycin, and Azithromycin -Continue IV NS @100mls/hr. Was giveb 2.5 liter bolus in the ED -Blood cultures pending -Sputum cultures, legionella urine, and mycoplasma ordered -Duo-Nebs PRN -Chest PT -Repeat ABG -ID consult placed -Would recommend HIV testing -Maintain 02% >95% CARDIOLOGY #Atrial Fibrillation w/ RVR -CHADSVASC score : 2 -Unsure of history of Afib -Patient started on Heparin drip for AC -Currently on Cardizem drip and Amiodarone drip with 150mg IVP given -Bedside ECHO done in the ED and revealed normal EF with no LV dysfunction -ECHO ordered -Cardiology consult placed -Continue cardiac monitoring #HTN -Currently normotensive -Hold off Anti-BP medications -Continue to monitor BP #HLD -Unsure if on any medications -Check lipid panel ENDOCRINOLOGY #Hyperglycemia/DKA vs. HHS -However, patient has serum bicarb >18, anion gap of 17, (+) urine ketones -Patient received 20 units of novolog in ED -Insulin drip started, transition to subq when glucose <250 and gap closes -BGMs Q1H when on drip and BMP's Q3-4H until gap closes -Gentle fluids with KCL -Follow up A1C HEMATOLOGY #Elevated INR -Likely from malignancy as patient denies taking any blood thinners -Will need hematology/oncology consult -Continue to monitor F/E/N -IV NS @100mls/hr w/KCl -Hyperglycemic and hyponatremic -NPO Prophylaxis -Heparin drip for DVT -No GI required Disposition -Full code -ICU monitoring Dispo: We will continue to follow the patient. Thank you for this consultative opportunity. Libertad Teixeira [id number] Visit type - Emergency Visit Emergency Visit: Yes ED Registration Date: 03/25/18 Care time: The patient presented to the Emergency Department on the above date and was hospitalized for further evaluation of their emergent condition. - New Patient This patient is new to me today: Yes Date on this admission: 03/25/18 - Critical Care Critical Care patient: Yes Total Critical Care Time (in minutes): 45 Critical Care Statement: The care of this patient involved high complexity decision making to prevent further life threatening deterioration of the patient 's condition and/or to evaluate & treat vital organ system(s) failure or risk of failure.
[2018-03-26] MEDS ORDERED: ALBUTEROL SO4 2.5/IPRATROPIUM 0.5 INH SOL 3 ML VIAL.NEB. NEB PRN (05:47)
[2018-03-26] MEDS ORDERED: dilTIAZem HCL 125 MG/25 ML - 25 ML VIAL ONE (05:59)
[2018-03-26] MEDS ORDERED: dilTIAZem HCL 50 MG/10 ML - 10 ML VIAL ONE (06:00)
[2018-03-26 06:03] LABS: INR 1.51 (0.83-1.09); PROTHROMBIN TIME (PATIENT) 17.9 SEC (9.7-13.0)
[2018-03-26 06:05] LABS: ACTIVATED PTT 48.7 SECONDS (25.2-36.5)
[2018-03-26] MEDS ORDERED: CEFTRIAXONE 1 GM in DEXTROSE 5%-WATER - 50 ML IVPB ONE (06:06)
[2018-03-26] MEDS: MAGNESIUM SULF 50% (8.12 MEQ/2 ML-1 GM VIAL) IVPB SCH ×2 (06:27→09:25)
[2018-03-26] MEDS ORDERED: MAGNESIUM SULF 50% (8.12 MEQ/2 ML-1 GM VIAL) ONE (06:27)
[2018-03-26] MEDS ORDERED: SODIUM CHLORIDE 0.9%/KCL 20 MEQ/1,000 ML INFUS.BAG IV SCH (06:30)
[2018-03-26] MEDS ORDERED: ACETAMINOPHEN 325 MG TABLET (FP) PO ONE (06:36)
[2018-03-26 06:48] LABS: ARTERIAL BLD GAS O2 SATURATION 93.8 % (90-98.9); ARTERIAL BLOOD GAS BASE EXCESS -3.7 meq/l (-2-2); ARTERIAL BLOOD GAS PCO2 29.6 mmHg (35-45); ARTERIAL BLOOD GAS PO2 72.7 mmHg (80-100); ARTERIAL BLOOD GAS pH 7.43 (7.35-7.45)
[2018-03-26] MEDS ORDERED: INSULIN REGULAR HUMAN 100 UNITS/ML *VIAL IVPUSH ONE (06:49)
[2018-03-26] MEDS ORDERED: ACETAMINOPHEN 325 MG TABLET (FP) ONE (06:55)
[2018-03-26] MEDS ORDERED: INSULIN SLIDING SCALE (NOVOLOG) 1 VIAL SQ SCH (07:00)
[2018-03-26] MEDS ORDERED: ETOMIDATE 20 MG/10 ML AMPUL IVPUSH ONE (07:12)
[2018-03-26] MEDS ORDERED: PHENYLEPHRINE HCL 10 MG/1 ML SINGLE DOSE VIAL ONE (07:12)
[2018-03-26] MEDS ORDERED: SUCCINYLCHOLINE CHLORIDE 200 MG/10 ML VIAL ONE (07:13)
[2018-03-26] MEDS ORDERED: RAPID SEQUENCE INTUBATION KIT NR ONE (07:13)
[2018-03-26 07:40] LABS: ALBUMIN 1.8 g/dl (3.4-5.0); ALK PHOS 102 U/L (45-117); ANION GAP 13 MMOL/L (8-16); BILIRUBIN,TOTAL 0.8 mg/dL (0.2-1); BLOOD UREA NITROGEN 19 mg/dL (7-18); CHLORIDE 106 mmol/L (98-107); CO2 23 mmol/L (21-32); CREATININE 0.9 mg/dL (0.55-1.3); GLUCOSE,RANDOM 229 mg/dL (74-106); MAGNESIUM 2.7 mg/dL (1.8-2.4); PHOSPHOROUS 1.6 mg/dL (2.5-4.9); POTASSIUM 4.2 mmol/L (3.5-5.1); SGOT/AST 25 U/L (15-37); SGPT/ALT 22 U/L (13-61); SODIUM 142 mmol/L (136-145); TOT PROT 5.9 g/dl (6.4-8.2)
[2018-03-26] MEDS ORDERED: PROPOFOL 200 MG/20 ML VIAL IVPUSH ONE ×2 (07:40→08:52)
[2018-03-26] MEDS: PROPOFOL 1,000,000 MCG/100 ML VIAL IVPB SCH (07:46)
[2018-03-26 07:47] LABS: CALCIUM 6.8 mg/dL (8.5-10.1)
[2018-03-26] MEDS ORDERED: fentaNYL CITRATE 250 MCG/5 ML VIAL ONE ×2 (08:49→19:55)
[2018-03-26] MEDS ORDERED: CEFTRIAXONE 1 GM/50 ML BAG ONE (08:50)
[2018-03-26] MEDS ORDERED: MAGNESIUM 1GM/D5W - 2 GM/200 ML IVPB IVPB ONE (08:50)
[2018-03-26 09:16] LABS: ARTERIAL BLD GAS O2 SATURATION 90.5 % (90-98.9); ARTERIAL BLOOD GAS BASE EXCESS -3.3 meq/l (-2-2); ARTERIAL BLOOD GAS PCO2 34.5 mmHg (35-45); ARTERIAL BLOOD GAS PO2 64.4 mmHg (80-100); ARTERIAL BLOOD GAS pH 7.39 (7.35-7.45)
[2018-03-26 09:29] LABS: ALLENS TEST POSITIVE
--- NOTE | 2018-03-26 09:33 | EKG ---
Test Reason : Blood Pressure : / mmHG Vent. Rate : 154 BPM Atrial Rate : 141 BPM P-R Int : 000 ms QRS Dur : 078 ms QT Int : 302 ms P-R-T Axes : 000 036 066 degrees QTc Int : 483 ms ATRIAL FIBRILLATION WITH RAPID VENTRICULAR RESPONSE WITH PREMATURE VENTRICULAR OR ABERRANTLY CONDUCTED COMPLEXES NONSPECIFIC T WAVE ABNORMALITY ABNORMAL ECG NO PREVIOUS ECGS AVAILABLE Confirmed by MJ HER MD ([id number]) on 03/26/2018 9:33:15 AM Referred By: Confirmed By:MJ HER MD
[2018-03-26] MEDS ORDERED: AZITHROMYCIN IVPB 500 MG/250 ML BAG IVPB SCH (10:00)
[2018-03-26] MEDS ORDERED: MUPIROCIN 2% TOPICAL OINTMENT FOR DECOLONIZATION NS SCH (10:00)
[2018-03-26] MEDS ORDERED: VANCOMYCIN 1 GRAM (PRE-DOCKED) 1,000 MG/250 ML BAG IVPB SCH (10:00)
[2018-03-26] MEDS ORDERED: VANCOMYCIN 1,000 MG in DEXTROSE 5%-WATER - 250 ML IVPB ONE (10:00)
[2018-03-26] MEDS: FENTANYL INJECTION 500 MCG in DEXTROSE 5%-WATER - 90 ML IVPB SCH (10:25)
[2018-03-26] MEDS: INSULIN SLIDING SCALE (NOVOLOG) 1 VIAL SQ SCH ×4 (10:27→23:43)
[2018-03-26 10:43] LABS: ANION GAP 15 MMOL/L (8-16); BLOOD UREA NITROGEN 19 mg/dL (7-18); CHLORIDE 107 mmol/L (98-107); CHOLESTEROL 99 mg/dL (50-200); CO2 19 mmol/L (21-32); CREATININE 0.9 mg/dL (0.55-1.3); GLUCOSE,RANDOM 231 mg/dL (74-106); HDL CHOLESTEROL 14 mg/dL (40-60); POTASSIUM 4.3 mmol/L (3.5-5.1); SODIUM 140 mmol/L (136-145); TRIGLYCERIDES 161 mg/dL (0-150)
[2018-03-26] MEDS ORDERED: PROPOFOL 1,000,000 MCG/100 ML VIAL ONE (11:02)
[2018-03-26] MEDS ORDERED: ACETAMINOPHEN 1000 MG/100 ML VIAL (NON FORMULARY) IVPB ONE (11:49)
--- NOTE | 2018-03-26 11:53 | CON.CARD ---
Cardiology Consult (text) - Consultation Consultation Note: cc: fever, leg wound hpi: 62 m hx dm, hld, htn here with fever, leg wound. Pt now intubated, hx from charts. Appeared septic when arrived, had resp distress and was intubated. Also with afib and rvr in ER, started on amio and dilt gtts in er. pmh: per hpi psh: unknown social: unknown fam: unknown ros: unable to obtain, pt intubated meds: Home Medications Medication Instructions Recorded Unobtainable 03/26/18 pe: Vital Signs Temp 101.6 F H 03/26/18 11:16 Pulse 88 03/26/18 11:16 Resp 23 H 03/26/18 11:42 BP 97/65 03/26/18 11:16 Pulse Ox 93 L 03/26/18 11:16 Intake & Output 03/25/18 03/25/18 03/26/18 11:59 23:59 11:59 Intake Total 640 Output Total 400 Balance 240 Weight 177 lb Intake: IV 390 Cardizem Injection - 125 90 mg In D5w - 100 ml @ 5 MG /HR 5 mls/hr IVPB TITR [facility] Rx#:[id number] DIPRIVAN - 1,000,000 mcg 100 In 100 ml @ 5 MCG/KG/MIN 2.409 mls/hr IVPB TITR [facility] Rx#:[id number] NEXTERONE 360 MG/200 ML 200 BAG 360 mg In 200 ml @ 0. 5 MG/MIN 16.667 mls/hr IVPB TITR [facility] Rx#: [id number] IVPB 250 Output: Urine 400 Tracy 400 Other: Voiding Method Urinal Height 5 ft 7 in Body Mass Index (BMI) 27.7 Weight Measurement Method Est/Stated by Patient nad no jvd, intubated sedated rrr s1s2 no mrg coarse bs bl anteriorly, vented no le e/c/c abd nd pos bs no jaundice diaphoresis pos dp pt Laboratory Last Values WBC 24.7 K/mm3 (4.0-10.0) H 03/26/18 05:13 RBC 5.07 M/mm3 (4.00-5.60) 03/26/18 05:13 Hgb 13.3 GM/dL (11.7-16.9) 03/26/18 05:13 Hct 39.6 % (35.4-49) 03/26/18 05:13 MCV 78.2 fl (80-96) L 03/26/18 05:13 MCH 26.4 pg (25.7-33.7) 03/26/18 05:13 MCHC 33.7 g/dl (32.0-35.9) 03/26/18 05:13 RDW 14.7 % (11.9-15.9) 03/26/18 05:13 Plt Count 146 K/MM3 (134-434) 03/26/18 05:13 MPV 10.2 fl (7.5-11.1) 03/26/18 05:13 Absolute Neuts (auto) 21.9 K/mm3 (1.5-8.0) H 03/26/18 05:13 Neutrophils % 88.6 % (42.8-82.8) H 03/26/18 05:13 Neutrophils % (Manual) 86.5 % (42.8-82.8) H 03/26/18 05:13 Band Neutrophils % 1.0 % 03/26/18 05:13 Lymphocytes % 4.2 % (8-40) L 03/26/18 05:13 Lymphocytes % (Manual) 4.8 % (8-40) L 03/26/18 05:13 Monocytes % 6.6 % (3.8-10.2) 03/26/18 05:13 Monocytes % (Manual) 3 % (3.8-10.2) L 03/26/18 05:13 Eosinophils % 0.2 % (0-4.5) D 03/26/18 05:13 Eosinophils % (Manual) 1.9 % (0-4.5) D 03/26/18 05:13 Basophils % 0.4 % (0-2.0) 03/26/18 05:13 Basophils % (Manual) 0.0 % (0-2.0) 03/26/18 05:13 Myelocytes % (Man) 0 % (0-2) 03/26/18 05:13 Promyelocytes % (Man) 0 % (0-2) 03/26/18 05:13 Blast Cells % (Manual) 0 % (0-0) 03/26/18 05:13 Nucleated RBC % 0 % (0-0) 03/26/18 05:13 Metamyelocytes 0 % (0-2) 03/26/18 05:13 Platelet Estimate Adequate 03/25/18 19:55 Platelet Comment Large platelets 03/25/18 19:55 ESR 92 mm/hr (0-20) H 03/26/18 10:00 PT with INR 17.90 SEC (9.7-13.0) H 03/26/18 05:13 INR 1.51 (0.83-1.09) H 03/26/18 05:13 PTT (Actin FS) 48.7 SECONDS (25.2-36.5) H 03/26/18 05:13 Anticoagulation Therapy No Result Required. 03/26/18 08:59 Puncture Site Left radial 03/26/18 08:59 ABG pH 7.39 (7.35-7.45) 03/26/18 08:59 ABG pCO2 at Pt Temp 34.5 mmHg (35-45) L 03/26/18 08:59 ABG pO2 at Pt Temp 64.4 mmHg (80-100) L 03/26/18 08:59 ABG HCO3 20.4 meq/L (22-26) L 03/26/18 08:59 ABG O2 Sat (Measured) 90.5 % (90-98.9) 03/26/18 08:59 ABG O2 Content 20.3 % vol (15-22) 03/26/18 08:59 ABG Base Excess -3.3 meq/l (-2-2) L 03/26/18 08:59 Petey Test Positive 03/26/18 08:59 VBG pH 7.44 (7.32-7.42) H 03/25/18 19:55 POC VBG pCO2 32.5 mmHg (38-52) L 03/25/18 19:55 POC VBG pO2 25.5 mmHg (28-48) L 03/25/18 19:55 Mixed VBG HCO3 21.7 meq/L (19-25) 03/25/18 19:55 Carboxyhemoglobin 0.6 gm% (0.5-2.0) 03/25/18 20:50 Methemoglobin 1.5 % (0.4-1.5) 03/25/18 20:50 O2 Delivery Device No Result Required. 03/26/18 08:59 Oxygen Flow Rate Yes 03/26/18 08:59 Vent Mode No Result Required. 03/26/18 08:59 Vent Rate No Result Required. 03/26/18 08:59 Mechanical Rate No Result Required. 03/26/18 08:59 Pressure Support Vent No Result Required. 03/26/18 08:59 Sodium 140 mmol/L (136-145) 03/26/18 05:13 Potassium 4.3 mmol/L (3.5-5.1) 03/26/18 05:13 Chloride 107 mmol/L (98-107) 03/26/18 05:13 Carbon Dioxide 19 mmol/L (21-32) L 03/26/18 05:13 Anion Gap 15 MMOL/L (8-16) 03/26/18 05:13 BUN 19 mg/dL (7-18) H 03/26/18 05:13 Creatinine 0.9 mg/dL (0.55-1.3) 03/26/18 05:13 Creat Clearance w eGFR > 60 (>60) 03/26/18 05:13 POC Glucometer 189.46029 UNITS (80-120) 03/26/18 10:12 Random Glucose 231 mg/dL (74-106) H 03/26/18 05:13 Hemoglobin A1c % 11.5 % (4.2-6.3) H 03/26/18 05:13 Lactic Acid 2.8 mmol/L (0.4-2.0) H* 03/26/18 10:00 Calcium 7.0 mg/dL (8.5-10.1) L 03/26/18 05:13 Phosphorus 1.6 mg/dL (2.5-4.9) L 03/26/18 05:13 Magnesium 2.7 mg/dL (1.8-2.4) H 03/26/18 05:13 Total Bilirubin 0.8 mg/dL (0.2-1) 03/26/18 05:13 AST 25 U/L (15-37) 03/26/18 05:13 ALT 22 U/L (13-61) 03/26/18 05:13 Alkaline Phosphatase 102 U/L (45-117) 03/26/18 05:13 Troponin I 0.02 ng/ml (0.00-0.05) 03/26/18 05:13 C-Reactive Protein 45.4 MG/DL (0.00-0.3) H 03/26/18 05:13 Total Protein 5.9 g/dl (6.4-8.2) L 03/26/18 05:13 Albumin 1.8 g/dl (3.4-5.0) L 03/26/18 05:13 Prealbumin 3.0 mg/dl (20-40) L 03/26/18 05:13 Triglycerides 161 mg/dL (0-150) H 03/26/18 05:13 Cholesterol 99 mg/dL (50-200) 03/26/18 05:13 Total LDL Cholesterol 56 mg/dL (5-100) 03/26/18 05:13 HDL Cholesterol 14 mg/dL (40-60) L 03/26/18 05:13 TSH 0.39 uIU/ml (0.358-3.74) 03/26/18 05:13 Free T4 1.55 ng/dl (0.76-1.16) H 03/26/18 05:13 Urine Color Yellow 03/25/18 20:10 Urine Appearance Clear 03/25/18 20:10 Urine pH 6.0 (5.0-8.0) 03/25/18 20:10 Ur Specific [place] 1.028 (1.010-1.035) 03/25/18 20:10 Urine Protein 2+ (NEGATIVE) H 03/25/18 20:10 Urine Glucose (UA) 3+ (NEGATIVE) H 03/25/18 20:10 Urine Ketones 1+ (NEGATIVE) H 03/25/18 20:10 Urine Blood 2+ (NEGATIVE) H 03/25/18 20:10 Urine Nitrite Negative (NEGATIVE) 03/25/18 20:10 Urine Bilirubin Negative (<2.0 mg/dL) 03/25/18 20:10 Urine Urobilinogen Negative mg/dL (0.2-1.0) 03/25/18 20:10 Ur Leukocyte Esterase Negative (NEGATIVE) 03/25/18 20:10 Urine WBC (Auto) 2 /hpf (3-5) 03/25/18 20:10 Urine RBC (Auto) 9 /hpf (0-3) 03/25/18 20:10 Stool Occult Blood Negative (NEGATIVE) 03/26/18 11:11 HIV 1&2 Antibody Screen Negative 03/26/18 10:00 HIV P24 Antigen Negative 03/26/18 10:00 Blood Type A POSITIVE 03/26/18 10:05 Antibody Screen Negative 03/26/18 10:00 ct chest: b/l pna ecg: afib vr 154, no ischemic changes, nl qtc tele: sr now est cct>35 mins a/p: 62 m hx dm, hld, htn here with fever, leg wound. sepsis, resp failure: -has sahu abscess as well as b/l pna -cont abx per ID/crit care -vent management per ICU team -no signs chf or acs, check echo dm: -on insulin gtt for dka htn: -bp stable here, hold htn meds for now given sepsis, risk for hypotension hld: -stable, unknown if on statin at home afib, rvr: -unknown if new onset -in er started on dilt gtt and amio gtt-->now in sr, dc dilt gtt. cont amio gtt for now -chadsvasc warrants ac, cont hep gtt for now -check echo -tsh wnl -tele
[2018-03-26 12:00] LABS: ANION GAP 9 MMOL/L (8-16); BLOOD UREA NITROGEN 20 mg/dL (7-18); CHLORIDE 108 mmol/L (98-107); CO2 24 mmol/L (21-32); CREATININE 1.1 mg/dL (0.55-1.3); GLUCOSE,RANDOM 210 mg/dL (74-106); POTASSIUM 3.6 mmol/L (3.5-5.1); SODIUM 141 mmol/L (136-145)
[2018-03-26] MEDS ORDERED: LACTATED RINGERS SOLUTION 1,000 ML/1,000 ML INFUS.BAG IV SCH (12:00)
[2018-03-26 12:03] LABS: CALCIUM 6.8 mg/dL (8.5-10.1)
[2018-03-26] MEDS: PANTOPRAZOLE SODIUM 40 MG VIAL IVPUSH SCH ×2 (12:15→22:50)
--- NOTE | 2018-03-26 13:30 | PN ---
Teaching Attending Note Name of Resident: Libertad Teixeira ATTENDING PHYSICIAN STATEMENT I saw and evaluated the patient. I reviewed the resident's note and discussed the case with the resident. I agree with the resident's findings and plan as documented. SUBJECTIVE: Patient seen and examined in the ER. Intubated and sedated. Clinical decompensation overnight. Currently off IV insulin. R IJ TLC inserted for access. Intake & Output 03/23/18 03/24/18 03/25/18 03/26/18 23:59 23:59 23:59 23:59 Intake Total 640 Output Total 400 Balance 240 Weight 177 lb Last Vital Signs Temp Pulse Resp BP Pulse Ox 101.6 F H 80 21 H 99/63 97 03/26/18 11:16 03/26/18 13:17 03/26/18 14:04 03/26/18 13:17 03/26/18 13:17 Active Medications Albuterol/Ipratropium (Duoneb -) 1 amp NEB Q4H PRN PRN Reason: SHORTNESS OF BREATH Chlorhexidine Gluconate (Hibiclens For Decolonization -) 1 applic TP HS [place] Heparin Sodium (Porcine) (Heparin -) 1,000 unit IVPUSH PRN PRN PRN Reason: Heparin Heparin Sodium (Porcine) (Heparin -) 5,000 unit IVPUSH PRN PRN PRN Reason: Heparin Amiodarone HCl/Dextrose (Nexterone 360 Mg/200 Ml Bag) 360 mg in 200 mls @ 16.667 mls/hr IVPB TITR [facility]; Protocol Last Admin: 03/25/18 23:54 Dose: 0.5 mg/min, 16.667 mls/hr Heparin Sodium (Porcine) 25, (000 unit/ Sodium Chloride) 500 mls @ 20 mls/hr IV TITR [facility]; Protocol Last Titration: 03/26/18 13:30 Dose: 1,200 unit/hr, 24 mls/hr Azithromycin (Zithromax 500mg Ivpb (Pre-Docked)) 500 mg in 250 mls @ 250 mls/ hr IVPB DAILY [facility] Last Admin: 03/26/18 10:36 Dose: 250 mls/hr Clindamycin Phosphate (Cleocin 900 Mg Premix Ivpb -) 900 mg in 50 mls @ 100 mls /hr IVPB TID [facility]; Protocol Last Admin: 03/26/18 13:16 Dose: 100 mls/hr Propofol (Diprivan -) 1,000,000 mcg in 100 mls @ 2.409 mls/hr IVPB TITR [facility]; Protocol Last Titration: 03/26/18 12:19 Dose: 30 mcg/kg/min, 14.451 mls/hr Fentanyl 500 mcg/ Dextrose 100 mls @ 5 mls/hr IVPB TITR [facility]; Protocol Last Titration: 03/26/18 12:36 Dose: 50 mcg/hr, 10 mls/hr Lactated Ringer's (Lactated Ringers Solution) 1,000 ml in 1,000 mls @ 83 mls/ hr IV ASDIR [facility] Last Admin: 03/26/18 12:15 Dose: 83 mls/hr Insulin Aspart (Novolog Vial Sliding Scale -) 1 vial SQ ACHS [facility]; Protocol Last Admin: 03/26/18 11:17 Dose: Not Given Methylprednisolone Sodium Succinate (Solu-Medrol -) 40 mg IVPUSH DAILY [facility] Stop: 03/31/18 23:59 Mupirocin (Bactroban Ointment (For Decolonization) -) 1 applic NS BID [facility] Stop: 03/31/18 09:59 Pantoprazole Sodium (Protonix Iv) 40 mg IVPUSH BID [facility] Last Admin: 03/26/18 12:15 Dose: 40 mg GENERAL: Intubated and sedated HEAD: Normal with no signs of trauma. EYES: Sclera anicteric, conjunctiva clear. EARS, NOSE, THROAT: Dry mucous membranes. NECK: (-) lymphadenopathy, JVD, or masses. LUNGS: Scattered bilateral crackles and coarse rhonchi. Decreased breath sounds of left side. HEART: Tachycardic with regular rhythm ABDOMEN: Soft, obese, nontender, not distended, normoactive bowel sounds, no guarding, no rebound, no masses. No hepatomegaly or splenomegaly. MUSCULOSKELETAL: No CVA tenderness. UPPER EXTREMITIES: No peripheral edema. LOWER EXTREMITIES: 2+ pulses, warm, well-perfused. No calf tenderness. No peripheral edema. NEUROLOGICAL: sedated PSYCHIATRIC: sedated SKIN: (+) erythemetous 1x1 lesion with a 1-2 cm laceration in the right anterior leg, (-) drainage Laboratory Results - last 24 hr 03/25/18 03/25/18 03/25/18 19:55 19:55 19:55 WBC 26.8 H RBC 5.29 Hgb 14.0 Hct 41.4 MCV 78.3 L MCH 26.4 MCHC 33.8 RDW 14.8 Plt Count 173 MPV 11.1 Absolute Neuts (auto) 23.8 H Neutrophils % 88.7 H Neutrophils % (Manual) 86.0 H Band Neutrophils % 8.0 Lymphocytes % 3.5 L Lymphocytes % (Manual) 4.0 L Monocytes % 7.5 Monocytes % (Manual) 2 L Eosinophils % 0.1 Eosinophils % (Manual) 0.0 Basophils % 0.2 Basophils % (Manual) 0.0 Myelocytes % (Man) Promyelocytes % (Man) Blast Cells % (Manual) Nucleated RBC % 0 Metamyelocytes Platelet Estimate Adequate Platelet Comment Large platelets ESR PT with INR 17.40 H INR 1.47 H PTT (Actin FS) 34.4 Anticoagulation Therapy Puncture Site ABG pH ABG pCO2 at Pt Temp ABG pO2 at Pt Temp ABG HCO3 ABG O2 Sat (Measured) ABG O2 Content ABG Base Excess Petey Test VBG pH 7.44 H POC VBG pCO2 32.5 L POC VBG pO2 25.5 L Mixed VBG HCO3 21.7 Carboxyhemoglobin Methemoglobin O2 Delivery Device Oxygen Flow Rate Vent Mode Vent Rate Mechanical Rate Pressure Support Vent Sodium Potassium Chloride Carbon Dioxide Anion Gap BUN Creatinine Creat Clearance w eGFR POC Glucometer Random Glucose Hemoglobin A1c % Lactic Acid Calcium Phosphorus Magnesium Total Bilirubin AST ALT Alkaline Phosphatase Troponin I C-Reactive Protein Total Protein Albumin Prealbumin Triglycerides Cholesterol Total LDL Cholesterol HDL Cholesterol TSH Free T4 Urine Color Urine Appearance Urine pH Ur Specific [place] Urine Protein Urine Glucose (UA) Urine Ketones Urine Blood Urine Nitrite Urine Bilirubin Urine Urobilinogen Ur Leukocyte Esterase Urine WBC (Auto) Urine RBC (Auto) Stool Occult Blood HIV 1&2 Antibody Screen HIV P24 Antigen Blood Type Antibody Screen 03/25/18 03/25/18 03/25/18 19:55 19:55 20:10 WBC RBC Hgb Hct MCV MCH MCHC RDW Plt Count MPV Absolute Neuts (auto) Neutrophils % Neutrophils % (Manual) Band Neutrophils % Lymphocytes % Lymphocytes % (Manual) Monocytes % Monocytes % (Manual) Eosinophils % Eosinophils % (Manual) Basophils % Basophils % (Manual) Myelocytes % (Man) Promyelocytes % (Man) Blast Cells % (Manual) Nucleated RBC % Metamyelocytes Platelet Estimate Platelet Comment ESR PT with INR INR PTT (Actin FS) Anticoagulation Therapy Puncture Site ABG pH ABG pCO2 at Pt Temp ABG pO2 at Pt Temp ABG HCO3 ABG O2 Sat (Measured) ABG O2 Content ABG Base Excess Petey Test VBG pH POC VBG pCO2 POC VBG pO2 Mixed VBG HCO3 Carboxyhemoglobin Methemoglobin O2 Delivery Device Oxygen Flow Rate Vent Mode Vent Rate Mechanical Rate Pressure Support Vent Sodium 134 L Potassium 4.4 Chloride 96 L Carbon Dioxide 21 Anion Gap 17 H BUN 22 H Creatinine 1.2 Creat Clearance w eGFR > 60 POC Glucometer Random Glucose 427 H* Hemoglobin A1c % Lactic Acid 2.4 H* Calcium 7.7 L Phosphorus Magnesium Total Bilirubin 1.2 H AST 27 ALT 26 Alkaline Phosphatase 93 Troponin I 0.02 C-Reactive Protein Total Protein 6.2 L Albumin 2.0 L Prealbumin Triglycerides Cholesterol Total LDL Cholesterol HDL Cholesterol TSH Free T4 Urine Color Yellow Urine Appearance Clear Urine pH 6.0 Ur Specific [place] 1.028 Urine Protein 2+ H Urine Glucose (UA) 3+ H Urine Ketones 1+ H Urine Blood 2+ H Urine Nitrite Negative Urine Bilirubin Negative Urine Urobilinogen Negative Ur Leukocyte Esterase Negative Urine WBC (Auto) 2 Urine RBC (Auto) 9 Stool Occult Blood HIV 1&2 Antibody Screen HIV P24 Antigen Blood Type Antibody Screen 03/25/18 03/25/18 03/25/18 20:50 21:00 21:35 WBC RBC Hgb Hct MCV MCH MCHC RDW Plt Count MPV Absolute Neuts (auto) Neutrophils % Neutrophils % (Manual) Band Neutrophils % Lymphocytes % Lymphocytes % (Manual) Monocytes % Monocytes % (Manual) Eosinophils % Eosinophils % (Manual) Basophils % Basophils % (Manual) Myelocytes % (Man) Promyelocytes % (Man) Blast Cells % (Manual) Nucleated RBC % Metamyelocytes Platelet Estimate Platelet Comment ESR PT with INR INR PTT (Actin FS) Anticoagulation Therapy Puncture Site Right radial ABG pH 7.40 ABG pCO2 at Pt Temp 27.5 L ABG pO2 at Pt Temp 80.6 ABG HCO3 16.8 L ABG O2 Sat (Measured) 94.2 ABG O2 Content 18.3 ABG Base Excess -6.1 L Petey Test Positive VBG pH POC VBG pCO2 POC VBG pO2 Mixed VBG HCO3 Carboxyhemoglobin 0.6 Methemoglobin 1.5 O2 Delivery Device Oxygen Flow Rate No Result Required. Vent Mode Vent Rate Mechanical Rate Pressure Support Vent Sodium Potassium Chloride Carbon Dioxide Anion Gap BUN Creatinine Creat Clearance w eGFR POC Glucometer Random Glucose Hemoglobin A1c % Lactic Acid Calcium Phosphorus 3.2 Magnesium 1.7 L Total Bilirubin AST ALT Alkaline Phosphatase Troponin I C-Reactive Protein Total Protein Albumin Prealbumin Triglycerides Cholesterol Total LDL Cholesterol HDL Cholesterol TSH Free T4 Urine Color Urine Appearance Urine pH Ur Specific [place] Urine Protein Urine Glucose (UA) Urine Ketones Urine Blood Urine Nitrite Urine Bilirubin Urine Urobilinogen Ur Leukocyte Esterase Urine WBC (Auto) Urine RBC (Auto) Stool Occult Blood HIV 1&2 Antibody Screen HIV P24 Antigen Blood Type Antibody Screen 03/25/18 03/26/18 03/26/18 22:15 00:10 00:12 WBC RBC Hgb Hct MCV MCH MCHC RDW Plt Count MPV Absolute Neuts (auto) Neutrophils % Neutrophils % (Manual) Band Neutrophils % Lymphocytes % Lymphocytes % (Manual) Monocytes % Monocytes % (Manual) Eosinophils % Eosinophils % (Manual) Basophils % Basophils % (Manual) Myelocytes % (Man) Promyelocytes % (Man) Blast Cells % (Manual) Nucleated RBC % Metamyelocytes Platelet Estimate Platelet Comment ESR PT with INR INR PTT (Actin FS) Anticoagulation Therapy No Result Required. Puncture Site No Result Required. ABG pH 7.38 ABG pCO2 at Pt Temp 29.8 L ABG pO2 at Pt Temp 84.1 ABG HCO3 17.4 L ABG O2 Sat (Measured) 94.7 ABG O2 Content 17.4 ABG Base Excess -6.1 L Petey Test No Result Required. VBG pH POC VBG pCO2 POC VBG pO2 Mixed VBG HCO3 Carboxyhemoglobin Methemoglobin O2 Delivery Device No Result Required. Oxygen Flow Rate No Result Required. Vent Mode No Result Required. Vent Rate No Result Required. Mechanical Rate No Result Required. Pressure Support Vent No Result Required. Sodium Potassium Chloride Carbon Dioxide Anion Gap BUN Creatinine Creat Clearance w eGFR POC Glucometer [phone] Random Glucose Hemoglobin A1c % Lactic Acid 1.7 Calcium Phosphorus Magnesium Total Bilirubin AST ALT Alkaline Phosphatase Troponin I C-Reactive Protein Total Protein Albumin Prealbumin Triglycerides Cholesterol Total LDL Cholesterol HDL Cholesterol TSH Free T4 Urine Color Urine Appearance Urine pH Ur Specific [place] Urine Protein Urine Glucose (UA) Urine Ketones Urine Blood Urine Nitrite Urine Bilirubin Urine Urobilinogen Ur Leukocyte Esterase Urine WBC (Auto) Urine RBC (Auto) Stool Occult Blood HIV 1&2 Antibody Screen HIV P24 Antigen Blood Type Antibody Screen 03/26/18 03/26/18 03/26/18 04:07 05:13 05:13 WBC RBC Hgb Hct MCV MCH MCHC RDW Plt Count MPV Absolute Neuts (auto) Neutrophils % Neutrophils % (Manual) Band Neutrophils % Lymphocytes % Lymphocytes % (Manual) Monocytes % Monocytes % (Manual) Eosinophils % Eosinophils % (Manual) Basophils % Basophils % (Manual) Myelocytes % (Man) Promyelocytes % (Man) Blast Cells % (Manual) Nucleated RBC % Metamyelocytes Platelet Estimate Platelet Comment ESR PT with INR INR PTT (Actin FS) Anticoagulation Therapy Puncture Site ABG pH ABG pCO2 at Pt Temp ABG pO2 at Pt Temp ABG HCO3 ABG O2 Sat (Measured) ABG O2 Content ABG Base Excess Petey Test VBG pH POC VBG pCO2 POC VBG pO2 Mixed VBG HCO3 Carboxyhemoglobin Methemoglobin O2 Delivery Device Oxygen Flow Rate Vent Mode Vent Rate Mechanical Rate Pressure Support Vent Sodium 140 Potassium 4.3 Chloride 107 Carbon Dioxide 19 L Anion Gap 15 BUN 19 H Creatinine 0.9 Creat Clearance w eGFR > 60 POC Glucometer [phone] Random Glucose 231 H Hemoglobin A1c % Lactic Acid Calcium 7.0 L Phosphorus Magnesium Total Bilirubin AST ALT Alkaline Phosphatase Troponin I 0.02 C-Reactive Protein 45.4 H Total Protein Albumin Prealbumin 3.0 L Triglycerides 161 H Cholesterol 99 Total LDL Cholesterol 56 HDL Cholesterol 14 L TSH 0.39 Free T4 1.55 H Urine Color Urine Appearance Urine pH Ur Specific [place] Urine Protein Urine Glucose (UA) Urine Ketones Urine Blood Urine Nitrite Urine Bilirubin Urine Urobilinogen Ur Leukocyte Esterase Urine WBC (Auto) Urine RBC (Auto) Stool Occult Blood HIV 1&2 Antibody Screen HIV P24 Antigen Blood Type Antibody Screen 03/26/18 03/26/18 03/26/18 05:13 05:13 05:13 WBC 24.7 H RBC 5.07 Hgb 13.3 Hct 39.6 MCV 78.2 L MCH 26.4 MCHC 33.7 RDW 14.7 Plt Count 146 MPV 10.2 Absolute Neuts (auto) 21.9 H Neutrophils % 88.6 H Neutrophils % (Manual) 86.5 H Band Neutrophils % 1.0 Lymphocytes % 4.2 L Lymphocytes % (Manual) 4.8 L Monocytes % 6.6 Monocytes % (Manual) 3 L Eosinophils % 0.2 D Eosinophils % (Manual) 1.9 D Basophils % 0.4 Basophils % (Manual) 0.0 Myelocytes % (Man) 0 Promyelocytes % (Man) 0 Blast Cells % (Manual) 0 Nucleated RBC % 0 Metamyelocytes 0 Platelet Estimate Platelet Comment ESR PT with INR INR PTT (Actin FS) Anticoagulation Therapy Puncture Site ABG pH ABG pCO2 at Pt Temp ABG pO2 at Pt Temp ABG HCO3 ABG O2 Sat (Measured) ABG O2 Content ABG Base Excess Petey Test VBG pH POC VBG pCO2 POC VBG pO2 Mixed VBG HCO3 Carboxyhemoglobin Methemoglobin O2 Delivery Device Oxygen Flow Rate Vent Mode Vent Rate Mechanical Rate Pressure Support Vent Sodium 142 Potassium 4.2 Chloride 106 Carbon Dioxide 23 Anion Gap 13 BUN 19 H Creatinine 0.9 Creat Clearance w eGFR > 60 POC Glucometer Random Glucose 229 H Hemoglobin A1c % 11.5 H Lactic Acid Calcium 6.8 L* Phosphorus 1.6 L Magnesium 2.7 H Total Bilirubin 0.8 AST 25 ALT 22 Alkaline Phosphatase 102 Troponin I C-Reactive Protein Total Protein 5.9 L Albumin 1.8 L Prealbumin Triglycerides Cholesterol Total LDL Cholesterol HDL Cholesterol TSH Free T4 Urine Color Urine Appearance Urine pH Ur Specific [place] Urine Protein Urine Glucose (UA) Urine Ketones Urine Blood Urine Nitrite Urine Bilirubin Urine Urobilinogen Ur Leukocyte Esterase Urine WBC (Auto) Urine RBC (Auto) Stool Occult Blood HIV 1&2 Antibody Screen HIV P24 Antigen Blood Type Antibody Screen 03/26/18 03/26/18 03/26/18 05:13 06:00 07:59 WBC RBC Hgb Hct MCV MCH MCHC RDW Plt Count MPV Absolute Neuts (auto) Neutrophils % Neutrophils % (Manual) Band Neutrophils % Lymphocytes % Lymphocytes % (Manual) Monocytes % Monocytes % (Manual) Eosinophils % Eosinophils % (Manual) Basophils % Basophils % (Manual) Myelocytes % (Man) Promyelocytes % (Man) Blast Cells % (Manual) Nucleated RBC % Metamyelocytes Platelet Estimate Platelet Comment ESR PT with INR 17.90 H INR 1.51 H PTT (Actin FS) 48.7 H Anticoagulation Therapy No Result Required. Puncture Site No Result Required. ABG pH 7.43 ABG pCO2 at Pt Temp 29.6 L ABG pO2 at Pt Temp 72.7 L ABG HCO3 19.1 L ABG O2 Sat (Measured) 93.8 ABG O2 Content 18.1 ABG Base Excess -3.7 L Petey Test No Result Required. VBG pH POC VBG pCO2 POC VBG pO2 Mixed VBG HCO3 Carboxyhemoglobin Methemoglobin O2 Delivery Device No Result Required. Oxygen Flow Rate No Result Required. Vent Mode No Result Required. Vent Rate No Result Required. Mechanical Rate No Result Required. Pressure Support Vent No Result Required. Sodium Potassium Chloride Carbon Dioxide Anion Gap BUN Creatinine Creat Clearance w eGFR POC Glucometer [phone] Random Glucose Hemoglobin A1c % Lactic Acid Calcium Phosphorus Magnesium Total Bilirubin AST ALT Alkaline Phosphatase Troponin I C-Reactive Protein Total Protein Albumin Prealbumin Triglycerides Cholesterol Total LDL Cholesterol HDL Cholesterol TSH Free T4 Urine Color Urine Appearance Urine pH Ur Specific [place] Urine Protein Urine Glucose (UA) Urine Ketones Urine Blood Urine Nitrite Urine Bilirubin Urine Urobilinogen Ur Leukocyte Esterase Urine WBC (Auto) Urine RBC (Auto) Stool Occult Blood HIV 1&2 Antibody Screen HIV P24 Antigen Blood Type Antibody Screen 03/26/18 03/26/18 03/26/18 08:59 10:00 10:00 WBC RBC Hgb Hct MCV MCH MCHC RDW Plt Count MPV Absolute Neuts (auto) Neutrophils % Neutrophils % (Manual) Band Neutrophils % Lymphocytes % Lymphocytes % (Manual) Monocytes % Monocytes % (Manual) Eosinophils % Eosinophils % (Manual) Basophils % Basophils % (Manual) Myelocytes % (Man) Promyelocytes % (Man) Blast Cells % (Manual) Nucleated RBC % Metamyelocytes Platelet Estimate Platelet Comment ESR PT with INR INR PTT (Actin FS) Anticoagulation Therapy No Result Required. Puncture Site Left radial ABG pH 7.39 ABG pCO2 at Pt Temp 34.5 L ABG pO2 at Pt Temp 64.4 L ABG HCO3 20.4 L ABG O2 Sat (Measured) 90.5 ABG O2 Content 20.3 ABG Base Excess -3.3 L Petey Test Positive VBG pH POC VBG pCO2 POC VBG pO2 Mixed VBG HCO3 Carboxyhemoglobin Methemoglobin O2 Delivery Device No Result Required. Oxygen Flow Rate Yes Vent Mode No Result Required. Vent Rate No Result Required. Mechanical Rate No Result Required. Pressure Support Vent No Result Required. Sodium 141 Potassium 3.6 Chloride 108 H Carbon Dioxide 24 Anion Gap 9 BUN 20 H Creatinine 1.1 Creat Clearance w eGFR > 60 POC Glucometer Random Glucose 210 H Hemoglobin A1c % Lactic Acid Calcium 6.8 L* Phosphorus Magnesium Total Bilirubin AST ALT Alkaline Phosphatase Troponin I C-Reactive Protein Total Protein Albumin Prealbumin Triglycerides Cholesterol Total LDL Cholesterol HDL Cholesterol TSH Free T4 Urine Color Urine Appearance Urine pH Ur Specific [place] Urine Protein Urine Glucose (UA) Urine Ketones Urine Blood Urine Nitrite Urine Bilirubin Urine Urobilinogen Ur Leukocyte Esterase Urine WBC (Auto) Urine RBC (Auto) Stool Occult Blood HIV 1&2 Antibody Screen Negative HIV P24 Antigen Negative Blood Type Antibody Screen 03/26/18 03/26/18 03/26/18 10:00 10:00 10:00 WBC RBC Hgb Hct MCV MCH MCHC RDW Plt Count MPV Absolute Neuts (auto) Neutrophils % Neutrophils % (Manual) Band Neutrophils % Lymphocytes % Lymphocytes % (Manual) Monocytes % Monocytes % (Manual) Eosinophils % Eosinophils % (Manual) Basophils % Basophils % (Manual) Myelocytes % (Man) Promyelocytes % (Man) Blast Cells % (Manual) Nucleated RBC % Metamyelocytes Platelet Estimate Platelet Comment ESR 92 H PT with INR INR PTT (Actin FS) Anticoagulation Therapy Puncture Site ABG pH ABG pCO2 at Pt Temp ABG pO2 at Pt Temp ABG HCO3 ABG O2 Sat (Measured) ABG O2 Content ABG Base Excess Petey Test VBG pH POC VBG pCO2 POC VBG pO2 Mixed VBG HCO3 Carboxyhemoglobin Methemoglobin O2 Delivery Device Oxygen Flow Rate Vent Mode Vent Rate Mechanical Rate Pressure Support Vent Sodium Potassium Chloride Carbon Dioxide Anion Gap BUN Creatinine Creat Clearance w eGFR POC Glucometer Random Glucose Hemoglobin A1c % Lactic Acid 2.8 H* Calcium Phosphorus Magnesium Total Bilirubin AST ALT Alkaline Phosphatase Troponin I C-Reactive Protein Total Protein Albumin Prealbumin Triglycerides Cholesterol Total LDL Cholesterol HDL Cholesterol TSH Free T4 Urine Color Urine Appearance Urine pH Ur Specific [place] Urine Protein Urine Glucose (UA) Urine Ketones Urine Blood Urine Nitrite Urine Bilirubin Urine Urobilinogen Ur Leukocyte Esterase Urine WBC (Auto) Urine RBC (Auto) Stool Occult Blood HIV 1&2 Antibody Screen HIV P24 Antigen Blood Type A POSITIVE Antibody Screen Negative 03/26/18 03/26/18 03/26/18 10:05 10:12 11:11 WBC RBC Hgb Hct MCV MCH MCHC RDW Plt Count MPV Absolute Neuts (auto) Neutrophils % Neutrophils % (Manual) Band Neutrophils % Lymphocytes % Lymphocytes % (Manual) Monocytes % Monocytes % (Manual) Eosinophils % Eosinophils % (Manual) Basophils % Basophils % (Manual) Myelocytes % (Man) Promyelocytes % (Man) Blast Cells % (Manual) Nucleated RBC % Metamyelocytes Platelet Estimate Platelet Comment ESR PT with INR INR PTT (Actin FS) Anticoagulation Therapy Puncture Site ABG pH ABG pCO2 at Pt Temp ABG pO2 at Pt Temp ABG HCO3 ABG O2 Sat (Measured) ABG O2 Content ABG Base Excess Petey Test VBG pH POC VBG pCO2 POC VBG pO2 Mixed VBG HCO3 Carboxyhemoglobin Methemoglobin O2 Delivery Device Oxygen Flow Rate Vent Mode Vent Rate Mechanical Rate Pressure Support Vent Sodium Potassium Chloride Carbon Dioxide Anion Gap BUN Creatinine Creat Clearance w eGFR POC Glucometer [phone] Random Glucose Hemoglobin A1c % Lactic Acid Calcium Phosphorus Magnesium Total Bilirubin AST ALT Alkaline Phosphatase Troponin I C-Reactive Protein Total Protein Albumin Prealbumin Triglycerides Cholesterol Total LDL Cholesterol HDL Cholesterol TSH Free T4 Urine Color Urine Appearance Urine pH Ur Specific [place] Urine Protein Urine Glucose (UA) Urine Ketones Urine Blood Urine Nitrite Urine Bilirubin Urine Urobilinogen Ur Leukocyte Esterase Urine WBC (Auto) Urine RBC (Auto) Stool Occult Blood Negative HIV 1&2 Antibody Screen HIV P24 Antigen Blood Type A POSITIVE Antibody Screen 03/26/18 12:13 WBC RBC Hgb Hct MCV MCH MCHC RDW Plt Count MPV Absolute Neuts (auto) Neutrophils % Neutrophils % (Manual) Band Neutrophils % Lymphocytes % Lymphocytes % (Manual) Monocytes % Monocytes % (Manual) Eosinophils % Eosinophils % (Manual) Basophils % Basophils % (Manual) Myelocytes % (Man) Promyelocytes % (Man) Blast Cells % (Manual) Nucleated RBC % Metamyelocytes Platelet Estimate Platelet Comment ESR PT with INR INR PTT (Actin FS) 49.4 H Anticoagulation Therapy Puncture Site ABG pH ABG pCO2 at Pt Temp ABG pO2 at Pt Temp ABG HCO3 ABG O2 Sat (Measured) ABG O2 Content ABG Base Excess Petey Test VBG pH POC VBG pCO2 POC VBG pO2 Mixed VBG HCO3 Carboxyhemoglobin Methemoglobin O2 Delivery Device Oxygen Flow Rate Vent Mode Vent Rate Mechanical Rate Pressure Support Vent Sodium Potassium Chloride Carbon Dioxide Anion Gap BUN Creatinine Creat Clearance w eGFR POC Glucometer Random Glucose Hemoglobin A1c % Lactic Acid Calcium Phosphorus Magnesium Total Bilirubin AST ALT Alkaline Phosphatase Troponin I C-Reactive Protein Total Protein Albumin Prealbumin Triglycerides Cholesterol Total LDL Cholesterol HDL Cholesterol TSH Free T4 Urine Color Urine Appearance Urine pH Ur Specific [place] Urine Protein Urine Glucose (UA) Urine Ketones Urine Blood Urine Nitrite Urine Bilirubin Urine Urobilinogen Ur Leukocyte Esterase Urine WBC (Auto) Urine RBC (Auto) Stool Occult Blood HIV 1&2 Antibody Screen HIV P24 Antigen Blood Type Antibody Screen ASSESSMENT/PLAN: Acute Respiratory Failure due to extensive Left sided CAP R/O Mass (?) on the left Hyperglycemia (no DKA) Sepsis AFib with RVR Broad ABX Daily Steroids Glycemic control with SQ Insulin Christianson-culture BD TX IVF Follow CVP ID evaluation Check urine antigen Will need HIV testing ECHO Rate control per Cardiology IV Heparin for AC ICU monitoring Dr Stephens - Critical Care Critical Care patient: Yes Total Critical Care Time (in minutes): 35 Critical Care Statement: The care of this patient involved high complexity decision making to prevent further life threatening deterioration of the patient 's condition and/or to evaluate & treat vital organ system(s) failure or risk of failure.
--- NOTE | 2018-03-26 13:48 | ECHO ---
Name: BRITTA HEIN Exam:Adult Echocardiogram Study Date: 03/26/2018 11:30 AM Age: 62 yrs Reason For Study: R/O CHF Height: 67 in Weight: 177 lb BSA: 1.9 m2 MMode/2D Measurements & Calculations IVSd: 1.1 cm LA dimension: 3.6 cm LVIDd: 3.8 cm LVIDs: 2.3 cm LVPWd: 1.0 cm LVPWs: 1.1 cm EDV(Teich): 60.7 ml ESV(Teich): 19.0 ml Doppler Measurements & Calculations MV E max matt: 80.5 cm/sec Ao V2 max: 122.3 cm/sec MV A max matt: 49.0 cm/sec Ao max P.0 mmHg MV E/A: 1.6 MV dec time: 0.19 sec LV V1 max P.5 mmHg TR max matt: 261.1 cm/sec LV V1 max: 106.2 cm/sec TR max P.3 mmHg PA V2 max: 74.7 cm/sec Med Peak E' Matt: 6.1 cm/sec PA max P.2 mmHg Med E/e': 13.2 Lat Peak E' Matt: 4.6 cm/sec Lat E/e': 17.6 Procedure The study was technically difficult with many images being suboptimal in quality. Left Ventricle Left ventricular systolic function is grossly normal. Right Ventricle The right ventricle is grossly normal size. The right ventricular systolic function is grossly normal . Atria Normal left and right atrial size and function. Mitral Valve The mitral valve is grossly normal. There is no mitral valve stenosis. There is mild mitral regurgita tion. Tricuspid Valve The tricuspid valve is normal in structure and function. There is mild tricuspid regurgitation. Right ventricular systolic pressure is elevated at 30-40mmHg. Aortic Valve The aortic valve opens well. No hemodynamically significant valvular aortic stenosis. Pulmonic Valve The pulmonic valve is not well seen, but is grossly normal. There is no pulmonic valvular stenosis. T here is no pulmonic valvular regurgitation. Great Vessels The aortic root is normal size. Pericardium/Pleura There is no pericardial effusion. Interpretation Summary The study was technically difficult with many images being suboptimal in quality. Left ventricular systolic function is grossly normal. There is mild mitral regurgitation. There is mild tricuspid regurgitation. Right ventricular systolic pressure is elevated at 30-40mmHg. The aortic root is normal size. There is no pericardial effusion. MD Osuna *Jana 03/26/2018 01:47 PM
[2018-03-26 13:59] LABS: ANION GAP 9 MMOL/L (8-16); BLOOD UREA NITROGEN 21 mg/dL (7-18); CHLORIDE 108 mmol/L (98-107); CO2 23 mmol/L (21-32); CREATININE 1.1 mg/dL (0.55-1.3); GLUCOSE,RANDOM 114 mg/dL (74-106); POTASSIUM 3.5 mmol/L (3.5-5.1); SODIUM 139 mmol/L (136-145)
[2018-03-26 14:03] LABS: CALCIUM 6.6 mg/dL (8.5-10.1)
[2018-03-26] MEDS ORDERED: POTASSIUM PHOSPHATE 30 MM in SODIUM CHLORIDE 250 ML IVPB ONE (15:07)
[2018-03-26 16:04] LABS: BASO % 0.3 % (0-2.0); EOS % 0.6 % (0-4.5); HEMATOCRIT 32.2 % (35.4-49); LYMPH % 5.1 % (8-40); MCH 26.5 pg (25.7-33.7); MEAN CELL VOLUME 77.8 fl (80-96); MEAN PLT VOLUME 11.4 fl (7.5-11.1); MONO % 7.3 % (3.8-10.2); NEUT % 86.7 % (42.8-82.8); PLATELET COUNT 161 K/MM3 (134-434); RBC 4.14 M/mm3 (4.00-5.60); RDW 14.6 % (11.9-15.9); WHITE BLOOD COUNT 19.2 K/mm3 (4.0-10.0)
--- NOTE | 2018-03-26 16:18 | PN ---
Progress Note (short form) - Note Progress Note: ID Consult dictated Multilobar legionella pneumonia Sepsis secondary to lung source Respiratory failure Leukocytosis Lactic acidosis Await c/s Sputum c/s Legionella Ab HIV test (son gives consent) Levaquin 750mg qd + Vancomycin 1gm q12h Critical care time 35min
[2018-03-26] MEDS: methylPREDNISolone NA SUCC 40 MG/1 ML VIAL IVPUSH SCH (16:20)
[2018-03-26 16:23] LABS: ANION GAP 10 MMOL/L (8-16); BLOOD UREA NITROGEN 22 mg/dL (7-18); CHLORIDE 107 mmol/L (98-107); CO2 23 mmol/L (21-32); CREATININE 1.2 mg/dL (0.55-1.3); GLUCOSE,RANDOM 174 mg/dL (74-106); POTASSIUM 3.6 mmol/L (3.5-5.1); SODIUM 141 mmol/L (136-145)
[2018-03-26 16:25] LABS: CALCIUM 6.9 mg/dL (8.5-10.1)
[2018-03-26] MEDS ORDERED: METOPROLOL TARTRATE 5 MG/5 ML VIAL IVPUSH PRN (16:41)
--- NOTE | 2018-03-26 18:16 | PN ---
Teaching Attending Note Name of Resident: Magdalena Wray ATTENDING PHYSICIAN STATEMENT I saw and evaluated the patient. I reviewed the resident's note and discussed the case with the resident. I agree with the resident's findings and plan as documented. SUBJECTIVE: SOB, respiratory distress, sepsis,intubated for respiratory failure not responding to high flow O2, Also found to be in AFIB , RVR , started on Amio and is now back on SR. OBJECTIVE: Last Vital Signs Temp Pulse Resp BP Pulse Ox 99.0 F 74 14 95/63 90 L 03/26/18 22:00 03/26/18 22:00 03/27/18 01:26 03/26/18 22:00 03/26/18 21:00 intubated, on VAC, [place](-1), in no distress has thick necrotic looking discharge in the suction'no NGT in place at this time CVS: regular at this time, s1s2 Lungs: good air movement B/L vent sounds ABd:soft, NT/ND morataya in place Microbiolog Labs: 03/25/18 19:55 Blood - Peripheral Venous Blood Culture - Preliminary NO GROWTH OBTAINED AFTER 24 HOURS, INCUBATION TO CONTINUE FOR 4 DAYS. 03/25/18 19:55 Blood - Peripheral Venous Blood Culture - Preliminary NO GROWTH OBTAINED AFTER 24 HOURS, INCUBATION TO CONTINUE FOR 4 DAYS. 03/26/18 10:21 Urine For Antigen Detection Legionella Antigen - Final 03/26/18 10:21 Urine For Antigen Detection Streptococcus pneumoniae Antigen (M - Final 03/25/18 19:25 Nasopharyngeal Swab Influenza Types A,B Antigen - Final 03/25/18 19:25 Nasopharyngeal Swab - Final TTE:reviewed: no significant abnormal EF.mild tr, mild mr Intake & Output 03/24/18 03/25/18 03/26/18 03/27/18 23:59 23:59 23:59 23:59 Intake Total 2026.4 Output Total 955 Balance 1071.4 Weight 177 lb 183 lb 13.848 oz CBCD WBC 18.4 K/mm3 (4.0-10.0) H 03/26/18 21:00 RBC 4.14 M/mm3 (4.00-5.60) 03/26/18 21:00 Hgb 10.9 GM/dL (11.7-16.9) L 03/26/18 21:00 Hct 32.7 % (35.4-49) L 03/26/18 21:00 MCV 78.9 fl (80-96) L 03/26/18 21:00 MCHC 33.4 g/dl (32.0-35.9) 03/26/18 21:00 RDW 14.8 % (11.9-15.9) 03/26/18 21:00 Plt Count 153 K/MM3 (134-434) 03/26/18 21:00 MPV 11.0 fl (7.5-11.1) 03/26/18 21:00 CMP Sodium 141 mmol/L (136-145) 03/26/18 15:21 Potassium 3.6 mmol/L (3.5-5.1) 03/26/18 15:21 Chloride 107 mmol/L (98-107) 03/26/18 15:21 Carbon Dioxide 23 mmol/L (21-32) 03/26/18 15:21 Anion Gap 10 MMOL/L (8-16) 03/26/18 15:21 BUN 22 mg/dL (7-18) H 03/26/18 15:21 Creatinine 1.2 mg/dL (0.55-1.3) 03/26/18 15:21 Creat Clearance w eGFR > 60 (>60) 03/26/18 15:21 Calcium 6.9 mg/dL (8.5-10.1) L* 03/26/18 15:21 Total Bilirubin 0.8 mg/dL (0.2-1) 03/26/18 05:13 AST 25 U/L (15-37) 03/26/18 05:13 ALT 22 U/L (13-61) 03/26/18 05:13 Alkaline Phosphatase 102 U/L (45-117) 03/26/18 05:13 Total Protein 5.9 g/dl (6.4-8.2) L 03/26/18 05:13 Albumin 1.8 g/dl (3.4-5.0) L 03/26/18 05:13 Current Medications Generic Name Dose Route Start Last Admin Trade Name Freq PRN Reason Stop Dose Admin Acetaminophen 1,000 mg 03/26/18 19:02 03/26/18 19:25 Ofirmev Injection - IVPB 1,000 mg Q6H PRN Administration FEVER Albuterol/Ipratropium 1 amp 03/26/18 05:47 Duoneb - NEB Q4H PRN SHORTNESS OF BREATH Chlorhexidine Gluconate 1 applic 03/26/18 22:00 03/26/18 22:50 Hibiclens For Decolonization - TP 1 applic HS HOLLAND Administration Heparin Sodium (Porcine) 1,000 unit 03/25/18 22:34 Heparin - IVPUSH PRN PRN Heparin Heparin Sodium (Porcine) 5,000 unit 03/25/18 22:34 Heparin - IVPUSH PRN PRN Heparin Heparin Sodium (Porcine) 25, 500 mls @ 20 mls/hr 03/25/18 22:45 03/26/18 22: 50 000 unit/ Sodium Chloride IV 1,200 unit/hr TITR HOLLAND 24 mls/hr Administration Protocol 1,000 UNIT/HR Propofol 1,000,000 mcg in 100 mls @ 2.409 mls/hr 03/26/18 07:45 03/26/18 12: 19 Diprivan - IVPB 30 mcg/kg/min TITR HOLLAND 14.451 mls/hr Titration Protocol 5 MCG/KG/MIN Fentanyl 500 mcg/ Dextrose 100 mls @ 5 mls/hr 03/26/18 07:45 03/26/18 12:36 IVPB 50 mcg/hr TITR HOLLAND 10 mls/hr Titration Protocol 25 MCG/HR Lactated Ringer's 1,000 ml in 1,000 mls @ 83 mls/hr 03/26/18 12:00 03/26/18 12:15 Lactated Ringers Solution IV 83 mls/hr ASDIR HOLLAND Administration Levofloxacin 750 mg in 150 mls @ 150 mls/hr 03/26/18 16:30 03/26/18 16:59 Levaquin 750 Mg Premixed Ivpb - IVPB 150 mls/hr DAILY HOLLAND Administration Protocol Vancomycin HCl 1,250 mg/ 250 mls @ 166.667 mls/hr 03/26/18 16:30 03/26/18 19: 04 Dextrose IVPB 166.667 mls/hr Q12H HOLLAND Administration Protocol Insulin Aspart 1 vial 03/27/18 02:00 Novolog Vial Sliding Scale - SQ Q4HPO HOLLAND Protocol Methylprednisolone Sodium Succinate 40 mg 03/26/18 13:59 03/26/18 16:20 Solu-Medrol - IVPUSH 03/31/18 23:59 40 mg DAILY HOLLAND Administration Metoprolol Tartrate 2.5 mg 03/26/18 16:41 Lopressor Injection - IVPUSH Q6H PRN HYPERTENSION Mupirocin 1 applic 03/26/18 22:00 03/26/18 22:49 Bactroban Ointment (For Decolonization) - NS 03/31/18 22:01 1 applic BID HOLLAND Administration Pantoprazole Sodium 40 mg 03/26/18 12:00 03/26/18 22:50 Protonix Iv IVPUSH 40 mg BID HOLLAND Administration ASSESSMENT AND PLAN: 62 Y/O M W uncontrolled DM, HTN, HLD P/W SOB for 5 days, found to be in hypoxic respiratory failure and sepsis due to PNA, intubated for hypoxic respiratory failure, newly dxed Afib. Hypoxic respiratory failure, S/P intubation, likely in the setting of PNA + legionella C/W ABX Will reevaluate for possible extubation in 2 days pending imprpvement of the symptoms. ICU recommendations and help highly appreciated Severe sepsis:due to PNA: now improved with IV hydration adn ABX, will C/W current ABX regimen pending further results of the CXs. ID team on board, their recommendation appreciated cardiac: Afib: no known HX, TTE no significant abnormality, now back to SR with amio load. further planning can be discsused with patient more stable Can be a candidate for EP evaluation and intervention. DM: uncontrolled at baseline, P/W HHS: on insulin drip, with hydration and k repletion PPX: in the setting of intubation, on PPI DVT ppx: on heparin drip for Afib at this time Diet: will reevaluate for extubation tomorrow and if no plan will place NGT and start the feeds Code: FC Rest of the management per hS notes
--- NOTE | 2018-03-26 18:30 | CONS ---
DATE OF CONSULTATION: DATE OF DICTATION: 03/26/2018 INFECTIOUS DISEASE CONSULTATION HISTORY OF PRESENT ILLNESS: The patient is a 62-year-old male with a past medical history of hypertension and diabetes, who was evaluated for Legionella pneumonia. He presented to the hospital on March 25, 2018, with complaints of upper back pain, generalized weakness and a dry cough for the past 5 days. He developed subjective fever over the past 3 days and anorexia over the past day or so. He presented to the emergency room, where he was noted to be ill-appearing. Chest x-ray showed whiteout of the left lung. CAT scan subsequently showed complete opacification of the left hemithorax and patchy infiltrates involving the right perihilar area and the right lower lobe. His Legionella urine antigen is now positive. He is presently intubated in the intensive care unit on 100% FiO2. Additional history was obtained from his son, who was present at the time of the examination. The patient lives in the [place]. He lives alone. He rents a room. He has no known ill contacts. 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 He does not work in any refrigerated or air conditioned areas. No known occupational water exposure. He is a nonsmoker. No recent hospitalizations. No risk factors for HIV, although his status is not known. He has not received influenza or pneumococcal vaccines. PAST MEDICAL HISTORY: Positive for diabetes mellitus, hypertension, and hyperlipidemia. ALLERGIES: No known allergies. SOCIAL HISTORY: The patient traveled to the [facility] 6 months ago. However, no recent travel. LABORATORY DATA: White count 26.8 with a left shift, hematocrit 41.4, platelets 173. Sodium 139, BUN 21, creatinine 1.1, phosphorus 1.6, lactic acid 2.8. EKG reviewed. QT interval 483. PHYSICAL EXAMINATION: General: He is intubated. Vital Signs: Temperature 101.3, Tmax 103. Blood pressure 98/63, pulse 78 and regular, respirations 21 per minute. HEENT: Sclerae anicteric. The patient is orally intubated. Cardiac: Heart sounds regular S1, S2. Lungs: Air entry bilaterally. Abdomen: Soft. No tenderness elicited. No mass, rebound or rigidity. Extremities: One plus edema. IMPRESSION: 1. Multilobar Legionella pneumonia. 2. Respiratory failure. 3. Marked leukocytosis. 4. Lactic acidosis. PLAN: In light of his grave clinical condition, benefits of optimal treatment for Legionella pneumonia outweigh potential risks of QT prolongation. We will treat with Levaquin 750 mg IV piggyback stat and daily. Continue vancomycin. Obtain sputum culture, Legionella antibodies, HIV testing. The patient's son gives consent. Continue ventilatory support. Prognosis is guarded. Thank you for the kind referral. MJ ROSA M.D. [id number]
--- NOTE | 2018-03-26 18:33 | PN ---
Physical Exam: SUBJECTIVE: Patient seen and examined at bedside. Pt intubated for 02 desaturation, Central line placed in ED. OBJECTIVE: Vital Signs Period Temp Pulse Resp BP Sys/Santacruz Pulse Ox Last 24 Hr 98.7 F-103.0 F 77-174 8-40 97-170/63-103 88-100 GENERAL: Intubated and sedated HEAD: Normal with no signs of trauma. EYES: Pinpoint pupils. NECK: Trachea midline, full range of motion, supple. LUNGS: Dec BS on Left. HEART: RRR No MRG S1S2 ABDOMEN: ND No rigidity. BS+ EXTREMITIES: No CCE PSYCH: Normal mood, normal affect. SKIN: Warm, dry, normal turgor, no rashes or lesions noted Laboratory Results - last 24 hr 03/25/18 03/25/18 03/25/18 19:55 19:55 19:55 WBC 26.8 H RBC 5.29 Hgb 14.0 Hct 41.4 MCV 78.3 L MCH 26.4 MCHC 33.8 RDW 14.8 Plt Count 173 MPV 11.1 Absolute Neuts (auto) 23.8 H Neutrophils % 88.7 H Neutrophils % (Manual) 86.0 H Band Neutrophils % 8.0 Lymphocytes % 3.5 L Lymphocytes % (Manual) 4.0 L Monocytes % 7.5 Monocytes % (Manual) 2 L Eosinophils % 0.1 Eosinophils % (Manual) 0.0 Basophils % 0.2 Basophils % (Manual) 0.0 Myelocytes % (Man) Promyelocytes % (Man) Blast Cells % (Manual) Nucleated RBC % 0 Metamyelocytes Platelet Estimate Adequate Platelet Comment Large platelets ESR PT with INR 17.40 H INR 1.47 H PTT (Actin FS) 34.4 Anticoagulation Therapy Puncture Site ABG pH ABG pCO2 at Pt Temp ABG pO2 at Pt Temp ABG HCO3 ABG O2 Sat (Measured) ABG O2 Content ABG Base Excess Petey Test VBG pH 7.44 H POC VBG pCO2 32.5 L POC VBG pO2 25.5 L Mixed VBG HCO3 21.7 Carboxyhemoglobin Methemoglobin O2 Delivery Device Oxygen Flow Rate Vent Mode Vent Rate Mechanical Rate Pressure Support Vent Sodium Potassium Chloride Carbon Dioxide Anion Gap BUN Creatinine Creat Clearance w eGFR POC Glucometer Random Glucose Hemoglobin A1c % Lactic Acid Calcium Phosphorus Magnesium Total Bilirubin AST ALT Alkaline Phosphatase Troponin I C-Reactive Protein Total Protein Albumin Prealbumin Triglycerides Cholesterol Total LDL Cholesterol HDL Cholesterol TSH Free T4 Urine Color Urine Appearance Urine pH Ur Specific [place] Urine Protein Urine Glucose (UA) Urine Ketones Urine Blood Urine Nitrite Urine Bilirubin Urine Urobilinogen Ur Leukocyte Esterase Urine WBC (Auto) Urine RBC (Auto) Stool Occult Blood HIV 1&2 Antibody Screen HIV P24 Antigen Blood Type Antibody Screen 03/25/18 03/25/18 03/25/18 19:55 19:55 20:10 WBC RBC Hgb Hct MCV MCH MCHC RDW Plt Count MPV Absolute Neuts (auto) Neutrophils % Neutrophils % (Manual) Band Neutrophils % Lymphocytes % Lymphocytes % (Manual) Monocytes % Monocytes % (Manual) Eosinophils % Eosinophils % (Manual) Basophils % Basophils % (Manual) Myelocytes % (Man) Promyelocytes % (Man) Blast Cells % (Manual) Nucleated RBC % Metamyelocytes Platelet Estimate Platelet Comment ESR PT with INR INR PTT (Actin FS) Anticoagulation Therapy Puncture Site ABG pH ABG pCO2 at Pt Temp ABG pO2 at Pt Temp ABG HCO3 ABG O2 Sat (Measured) ABG O2 Content ABG Base Excess Petey Test VBG pH POC VBG pCO2 POC VBG pO2 Mixed VBG HCO3 Carboxyhemoglobin Methemoglobin O2 Delivery Device Oxygen Flow Rate Vent Mode Vent Rate Mechanical Rate Pressure Support Vent Sodium 134 L Potassium 4.4 Chloride 96 L Carbon Dioxide 21 Anion Gap 17 H BUN 22 H Creatinine 1.2 Creat Clearance w eGFR > 60 POC Glucometer Random Glucose 427 H* Hemoglobin A1c % Lactic Acid 2.4 H* Calcium 7.7 L Phosphorus Magnesium Total Bilirubin 1.2 H AST 27 ALT 26 Alkaline Phosphatase 93 Troponin I 0.02 C-Reactive Protein Total Protein 6.2 L Albumin 2.0 L Prealbumin Triglycerides Cholesterol Total LDL Cholesterol HDL Cholesterol TSH Free T4 Urine Color Yellow Urine Appearance Clear Urine pH 6.0 Ur Specific [place] 1.028 Urine Protein 2+ H Urine Glucose (UA) 3+ H Urine Ketones 1+ H Urine Blood 2+ H Urine Nitrite Negative Urine Bilirubin Negative Urine Urobilinogen Negative Ur Leukocyte Esterase Negative Urine WBC (Auto) 2 Urine RBC (Auto) 9 Stool Occult Blood HIV 1&2 Antibody Screen HIV P24 Antigen Blood Type Antibody Screen 03/25/18 03/25/18 03/25/18 20:50 21:00 21:35 WBC RBC Hgb Hct MCV MCH MCHC RDW Plt Count MPV Absolute Neuts (auto) Neutrophils % Neutrophils % (Manual) Band Neutrophils % Lymphocytes % Lymphocytes % (Manual) Monocytes % Monocytes % (Manual) Eosinophils % Eosinophils % (Manual) Basophils % Basophils % (Manual) Myelocytes % (Man) Promyelocytes % (Man) Blast Cells % (Manual) Nucleated RBC % Metamyelocytes Platelet Estimate Platelet Comment ESR PT with INR INR PTT (Actin FS) Anticoagulation Therapy Puncture Site Right radial ABG pH 7.40 ABG pCO2 at Pt Temp 27.5 L ABG pO2 at Pt Temp 80.6 ABG HCO3 16.8 L ABG O2 Sat (Measured) 94.2 ABG O2 Content 18.3 ABG Base Excess -6.1 L Petey Test Positive VBG pH POC VBG pCO2 POC VBG pO2 Mixed VBG HCO3 Carboxyhemoglobin 0.6 Methemoglobin 1.5 O2 Delivery Device Oxygen Flow Rate No Result Required. Vent Mode Vent Rate Mechanical Rate Pressure Support Vent Sodium Potassium Chloride Carbon Dioxide Anion Gap BUN Creatinine Creat Clearance w eGFR POC Glucometer Random Glucose Hemoglobin A1c % Lactic Acid Calcium Phosphorus 3.2 Magnesium 1.7 L Total Bilirubin AST ALT Alkaline Phosphatase Troponin I C-Reactive Protein Total Protein Albumin Prealbumin Triglycerides Cholesterol Total LDL Cholesterol HDL Cholesterol TSH Free T4 Urine Color Urine Appearance Urine pH Ur Specific [place] Urine Protein Urine Glucose (UA) Urine Ketones Urine Blood Urine Nitrite Urine Bilirubin Urine Urobilinogen Ur Leukocyte Esterase Urine WBC (Auto) Urine RBC (Auto) Stool Occult Blood HIV 1&2 Antibody Screen HIV P24 Antigen Blood Type Antibody Screen 03/25/18 03/26/18 03/26/18 22:15 00:10 00:12 WBC RBC Hgb Hct MCV MCH MCHC RDW Plt Count MPV Absolute Neuts (auto) Neutrophils % Neutrophils % (Manual) Band Neutrophils % Lymphocytes % Lymphocytes % (Manual) Monocytes % Monocytes % (Manual) Eosinophils % Eosinophils % (Manual) Basophils % Basophils % (Manual) Myelocytes % (Man) Promyelocytes % (Man) Blast Cells % (Manual) Nucleated RBC % Metamyelocytes Platelet Estimate Platelet Comment ESR PT with INR INR PTT (Actin FS) Anticoagulation Therapy No Result Required. Puncture Site No Result Required. ABG pH 7.38 ABG pCO2 at Pt Temp 29.8 L ABG pO2 at Pt Temp 84.1 ABG HCO3 17.4 L ABG O2 Sat (Measured) 94.7 ABG O2 Content 17.4 ABG Base Excess -6.1 L Petey Test No Result Required. VBG pH POC VBG pCO2 POC VBG pO2 Mixed VBG HCO3 Carboxyhemoglobin Methemoglobin O2 Delivery Device No Result Required. Oxygen Flow Rate No Result Required. Vent Mode No Result Required. Vent Rate No Result Required. Mechanical Rate No Result Required. Pressure Support Vent No Result Required. Sodium Potassium Chloride Carbon Dioxide Anion Gap BUN Creatinine Creat Clearance w eGFR POC Glucometer [phone] Random Glucose Hemoglobin A1c % Lactic Acid 1.7 Calcium Phosphorus Magnesium Total Bilirubin AST ALT Alkaline Phosphatase Troponin I C-Reactive Protein Total Protein Albumin Prealbumin Triglycerides Cholesterol Total LDL Cholesterol HDL Cholesterol TSH Free T4 Urine Color Urine Appearance Urine pH Ur Specific [place] Urine Protein Urine Glucose (UA) Urine Ketones Urine Blood Urine Nitrite Urine Bilirubin Urine Urobilinogen Ur Leukocyte Esterase Urine WBC (Auto) Urine RBC (Auto) Stool Occult Blood HIV 1&2 Antibody Screen HIV P24 Antigen Blood Type Antibody Screen 03/26/18 03/26/18 03/26/18 04:07 05:13 05:13 WBC RBC Hgb Hct MCV MCH MCHC RDW Plt Count MPV Absolute Neuts (auto) Neutrophils % Neutrophils % (Manual) Band Neutrophils % Lymphocytes % Lymphocytes % (Manual) Monocytes % Monocytes % (Manual) Eosinophils % Eosinophils % (Manual) Basophils % Basophils % (Manual) Myelocytes % (Man) Promyelocytes % (Man) Blast Cells % (Manual) Nucleated RBC % Metamyelocytes Platelet Estimate Platelet Comment ESR PT with INR INR PTT (Actin FS) Anticoagulation Therapy Puncture Site ABG pH ABG pCO2 at Pt Temp ABG pO2 at Pt Temp ABG HCO3 ABG O2 Sat (Measured) ABG O2 Content ABG Base Excess Petey Test VBG pH POC VBG pCO2 POC VBG pO2 Mixed VBG HCO3 Carboxyhemoglobin Methemoglobin O2 Delivery Device Oxygen Flow Rate Vent Mode Vent Rate Mechanical Rate Pressure Support Vent Sodium 140 Potassium 4.3 Chloride 107 Carbon Dioxide 19 L Anion Gap 15 BUN 19 H Creatinine 0.9 Creat Clearance w eGFR > 60 POC Glucometer [phone] Random Glucose 231 H Hemoglobin A1c % Lactic Acid Calcium 7.0 L Phosphorus Magnesium Total Bilirubin AST ALT Alkaline Phosphatase Troponin I 0.02 C-Reactive Protein 45.4 H Total Protein Albumin Prealbumin 3.0 L Triglycerides 161 H Cholesterol 99 Total LDL Cholesterol 56 HDL Cholesterol 14 L TSH 0.39 Free T4 1.55 H Urine Color Urine Appearance Urine pH Ur Specific [place] Urine Protein Urine Glucose (UA) Urine Ketones Urine Blood Urine Nitrite Urine Bilirubin Urine Urobilinogen Ur Leukocyte Esterase Urine WBC (Auto) Urine RBC (Auto) Stool Occult Blood HIV 1&2 Antibody Screen HIV P24 Antigen Blood Type Antibody Screen 03/26/18 03/26/18 03/26/18 05:13 05:13 05:13 WBC 24.7 H RBC 5.07 Hgb 13.3 Hct 39.6 MCV 78.2 L MCH 26.4 MCHC 33.7 RDW 14.7 Plt Count 146 MPV 10.2 Absolute Neuts (auto) 21.9 H Neutrophils % 88.6 H Neutrophils % (Manual) 86.5 H Band Neutrophils % 1.0 Lymphocytes % 4.2 L Lymphocytes % (Manual) 4.8 L Monocytes % 6.6 Monocytes % (Manual) 3 L Eosinophils % 0.2 D Eosinophils % (Manual) 1.9 D Basophils % 0.4 Basophils % (Manual) 0.0 Myelocytes % (Man) 0 Promyelocytes % (Man) 0 Blast Cells % (Manual) 0 Nucleated RBC % 0 Metamyelocytes 0 Platelet Estimate Platelet Comment ESR PT with INR INR PTT (Actin FS) Anticoagulation Therapy Puncture Site ABG pH ABG pCO2 at Pt Temp ABG pO2 at Pt Temp ABG HCO3 ABG O2 Sat (Measured) ABG O2 Content ABG Base Excess Petey Test VBG pH POC VBG pCO2 POC VBG pO2 Mixed VBG HCO3 Carboxyhemoglobin Methemoglobin O2 Delivery Device Oxygen Flow Rate Vent Mode Vent Rate Mechanical Rate Pressure Support Vent Sodium 142 Potassium 4.2 Chloride 106 Carbon Dioxide 23 Anion Gap 13 BUN 19 H Creatinine 0.9 Creat Clearance w eGFR > 60 POC Glucometer Random Glucose 229 H Hemoglobin A1c % 11.5 H Lactic Acid Calcium 6.8 L* Phosphorus 1.6 L Magnesium 2.7 H Total Bilirubin 0.8 AST 25 ALT 22 Alkaline Phosphatase 102 Troponin I C-Reactive Protein Total Protein 5.9 L Albumin 1.8 L Prealbumin Triglycerides Cholesterol Total LDL Cholesterol HDL Cholesterol TSH Free T4 Urine Color Urine Appearance Urine pH Ur Specific [place] Urine Protein Urine Glucose (UA) Urine Ketones Urine Blood Urine Nitrite Urine Bilirubin Urine Urobilinogen Ur Leukocyte Esterase Urine WBC (Auto) Urine RBC (Auto) Stool Occult Blood HIV 1&2 Antibody Screen HIV P24 Antigen Blood Type Antibody Screen 10/03/26/18 03/26/18 05:13 06:00 07:59 WBC RBC Hgb Hct MCV MCH MCHC RDW Plt Count MPV Absolute Neuts (auto) Neutrophils % Neutrophils % (Manual) Band Neutrophils % Lymphocytes % Lymphocytes % (Manual) Monocytes % Monocytes % (Manual) Eosinophils % Eosinophils % (Manual) Basophils % Basophils % (Manual) Myelocytes % (Man) Promyelocytes % (Man) Blast Cells % (Manual) Nucleated RBC % Metamyelocytes Platelet Estimate Platelet Comment ESR PT with INR 17.90 H INR 1.51 H PTT (Actin FS) 48.7 H Anticoagulation Therapy No Result Required. Puncture Site No Result Required. ABG pH 7.43 ABG pCO2 at Pt Temp 29.6 L ABG pO2 at Pt Temp 72.7 L ABG HCO3 19.1 L ABG O2 Sat (Measured) 93.8 ABG O2 Content 18.1 ABG Base Excess -3.7 L Petey Test No Result Required. VBG pH POC VBG pCO2 POC VBG pO2 Mixed VBG HCO3 Carboxyhemoglobin Methemoglobin O2 Delivery Device No Result Required. Oxygen Flow Rate No Result Required. Vent Mode No Result Required. Vent Rate No Result Required. Mechanical Rate No Result Required. Pressure Support Vent No Result Required. Sodium Potassium Chloride Carbon Dioxide Anion Gap BUN Creatinine Creat Clearance w eGFR POC Glucometer [phone] Random Glucose Hemoglobin A1c % Lactic Acid Calcium Phosphorus Magnesium Total Bilirubin AST ALT Alkaline Phosphatase Troponin I C-Reactive Protein Total Protein Albumin Prealbumin Triglycerides Cholesterol Total LDL Cholesterol HDL Cholesterol TSH Free T4 Urine Color Urine Appearance Urine pH Ur Specific [place] Urine Protein Urine Glucose (UA) Urine Ketones Urine Blood Urine Nitrite Urine Bilirubin Urine Urobilinogen Ur Leukocyte Esterase Urine WBC (Auto) Urine RBC (Auto) Stool Occult Blood HIV 1&2 Antibody Screen HIV P24 Antigen Blood Type Antibody Screen 03/26/18 03/26/18 03/26/18 08:59 09:08 10:00 WBC RBC Hgb Hct MCV MCH MCHC RDW Plt Count MPV Absolute Neuts (auto) Neutrophils % Neutrophils % (Manual) Band Neutrophils % Lymphocytes % Lymphocytes % (Manual) Monocytes % Monocytes % (Manual) Eosinophils % Eosinophils % (Manual) Basophils % Basophils % (Manual) Myelocytes % (Man) Promyelocytes % (Man) Blast Cells % (Manual) Nucleated RBC % Metamyelocytes Platelet Estimate Platelet Comment ESR PT with INR INR PTT (Actin FS) Anticoagulation Therapy No Result Required. Puncture Site Left radial ABG pH 7.39 ABG pCO2 at Pt Temp 34.5 L ABG pO2 at Pt Temp 64.4 L ABG HCO3 20.4 L ABG O2 Sat (Measured) 90.5 ABG O2 Content 20.3 ABG Base Excess -3.3 L Petey Test Positive VBG pH POC VBG pCO2 POC VBG pO2 Mixed VBG HCO3 Carboxyhemoglobin Methemoglobin O2 Delivery Device No Result Required. Oxygen Flow Rate Yes Vent Mode No Result Required. Vent Rate No Result Required. Mechanical Rate No Result Required. Pressure Support Vent No Result Required. Sodium 141 Potassium 3.6 Chloride 108 H Carbon Dioxide 24 Anion Gap 9 BUN 20 H Creatinine 1.1 Creat Clearance w eGFR > 60 POC Glucometer [phone] Random Glucose 210 H Hemoglobin A1c % Lactic Acid Calcium 6.8 L* Phosphorus Magnesium Total Bilirubin AST ALT Alkaline Phosphatase Troponin I C-Reactive Protein Total Protein Albumin Prealbumin Triglycerides Cholesterol Total LDL Cholesterol HDL Cholesterol TSH Free T4 Urine Color Urine Appearance Urine pH Ur Specific [place] Urine Protein Urine Glucose (UA) Urine Ketones Urine Blood Urine Nitrite Urine Bilirubin Urine Urobilinogen Ur Leukocyte Esterase Urine WBC (Auto) Urine RBC (Auto) Stool Occult Blood HIV 1&2 Antibody Screen HIV P24 Antigen Blood Type Antibody Screen 03/26/18 03/26/18 03/26/18 10:00 10:00 10:00 WBC RBC Hgb Hct MCV MCH MCHC RDW Plt Count MPV Absolute Neuts (auto) Neutrophils % Neutrophils % (Manual) Band Neutrophils % Lymphocytes % Lymphocytes % (Manual) Monocytes % Monocytes % (Manual) Eosinophils % Eosinophils % (Manual) Basophils % Basophils % (Manual) Myelocytes % (Man) Promyelocytes % (Man) Blast Cells % (Manual) Nucleated RBC % Metamyelocytes Platelet Estimate Platelet Comment ESR 92 H PT with INR INR PTT (Actin FS) Anticoagulation Therapy Puncture Site ABG pH ABG pCO2 at Pt Temp ABG pO2 at Pt Temp ABG HCO3 ABG O2 Sat (Measured) ABG O2 Content ABG Base Excess Petey Test VBG pH POC VBG pCO2 POC VBG pO2 Mixed VBG HCO3 Carboxyhemoglobin Methemoglobin O2 Delivery Device Oxygen Flow Rate Vent Mode Vent Rate Mechanical Rate Pressure Support Vent Sodium Potassium Chloride Carbon Dioxide Anion Gap BUN Creatinine Creat Clearance w eGFR POC Glucometer Random Glucose Hemoglobin A1c % Lactic Acid 2.8 H* Calcium Phosphorus Magnesium Total Bilirubin AST ALT Alkaline Phosphatase Troponin I C-Reactive Protein Total Protein Albumin Prealbumin Triglycerides Cholesterol Total LDL Cholesterol HDL Cholesterol TSH Free T4 Urine Color Urine Appearance Urine pH Ur Specific [place] Urine Protein Urine Glucose (UA) Urine Ketones Urine Blood Urine Nitrite Urine Bilirubin Urine Urobilinogen Ur Leukocyte Esterase Urine WBC (Auto) Urine RBC (Auto) Stool Occult Blood HIV 1&2 Antibody Screen Negative HIV P24 Antigen Negative Blood Type Antibody Screen 03/26/18 03/26/18 03/26/18 10:00 10:05 10:12 WBC RBC Hgb Hct MCV MCH MCHC RDW Plt Count MPV Absolute Neuts (auto) Neutrophils % Neutrophils % (Manual) Band Neutrophils % Lymphocytes % Lymphocytes % (Manual) Monocytes % Monocytes % (Manual) Eosinophils % Eosinophils % (Manual) Basophils % Basophils % (Manual) Myelocytes % (Man) Promyelocytes % (Man) Blast Cells % (Manual) Nucleated RBC % Metamyelocytes Platelet Estimate Platelet Comment ESR PT with INR INR PTT (Actin FS) Anticoagulation Therapy Puncture Site ABG pH ABG pCO2 at Pt Temp ABG pO2 at Pt Temp ABG HCO3 ABG O2 Sat (Measured) ABG O2 Content ABG Base Excess Petey Test VBG pH POC VBG pCO2 POC VBG pO2 Mixed VBG HCO3 Carboxyhemoglobin Methemoglobin O2 Delivery Device Oxygen Flow Rate Vent Mode Vent Rate Mechanical Rate Pressure Support Vent Sodium Potassium Chloride Carbon Dioxide Anion Gap BUN Creatinine Creat Clearance w eGFR POC Glucometer [phone] Random Glucose Hemoglobin A1c % Lactic Acid Calcium Phosphorus Magnesium Total Bilirubin AST ALT Alkaline Phosphatase Troponin I C-Reactive Protein Total Protein Albumin Prealbumin Triglycerides Cholesterol Total LDL Cholesterol HDL Cholesterol TSH Free T4 Urine Color Urine Appearance Urine pH Ur Specific [place] Urine Protein Urine Glucose (UA) Urine Ketones Urine Blood Urine Nitrite Urine Bilirubin Urine Urobilinogen Ur Leukocyte Esterase Urine WBC (Auto) Urine RBC (Auto) Stool Occult Blood HIV 1&2 Antibody Screen HIV P24 Antigen Blood Type A POSITIVE A POSITIVE Antibody Screen Negative 03/26/18 03/26/18 03/26/18 11:11 11:12 12:13 WBC RBC Hgb Hct MCV MCH MCHC RDW Plt Count MPV Absolute Neuts (auto) Neutrophils % Neutrophils % (Manual) Band Neutrophils % Lymphocytes % Lymphocytes % (Manual) Monocytes % Monocytes % (Manual) Eosinophils % Eosinophils % (Manual) Basophils % Basophils % (Manual) Myelocytes % (Man) Promyelocytes % (Man) Blast Cells % (Manual) Nucleated RBC % Metamyelocytes Platelet Estimate Platelet Comment ESR PT with INR INR PTT (Actin FS) Anticoagulation Therapy Puncture Site ABG pH ABG pCO2 at Pt Temp ABG pO2 at Pt Temp ABG HCO3 ABG O2 Sat (Measured) ABG O2 Content ABG Base Excess Petey Test VBG pH POC VBG pCO2 POC VBG pO2 Mixed VBG HCO3 Carboxyhemoglobin Methemoglobin O2 Delivery Device Oxygen Flow Rate Vent Mode Vent Rate Mechanical Rate Pressure Support Vent Sodium 139 Potassium 3.5 Chloride 108 H Carbon Dioxide 23 Anion Gap 9 BUN 21 H Creatinine 1.1 Creat Clearance w eGFR > 60 POC Glucometer [phone] Random Glucose 114 H Hemoglobin A1c % Lactic Acid Calcium 6.6 L* Phosphorus Magnesium Total Bilirubin AST ALT Alkaline Phosphatase Troponin I C-Reactive Protein Total Protein Albumin Prealbumin Triglycerides Cholesterol Total LDL Cholesterol HDL Cholesterol TSH Free T4 Urine Color Urine Appearance Urine pH Ur Specific [place] Urine Protein Urine Glucose (UA) Urine Ketones Urine Blood Urine Nitrite Urine Bilirubin Urine Urobilinogen Ur Leukocyte Esterase Urine WBC (Auto) Urine RBC (Auto) Stool Occult Blood Negative HIV 1&2 Antibody Screen HIV P24 Antigen Blood Type Antibody Screen 03/26/18 03/26/18 03/26/18 12:13 15:21 15:21 WBC RBC Hgb Hct MCV MCH MCHC RDW Plt Count MPV Absolute Neuts (auto) Neutrophils % Neutrophils % (Manual) Band Neutrophils % Lymphocytes % Lymphocytes % (Manual) Monocytes % Monocytes % (Manual) Eosinophils % Eosinophils % (Manual) Basophils % Basophils % (Manual) Myelocytes % (Man) Promyelocytes % (Man) Blast Cells % (Manual) Nucleated RBC % Metamyelocytes Platelet Estimate Platelet Comment ESR PT with INR INR PTT (Actin FS) 49.4 H Anticoagulation Therapy Puncture Site ABG pH ABG pCO2 at Pt Temp ABG pO2 at Pt Temp ABG HCO3 ABG O2 Sat (Measured) ABG O2 Content ABG Base Excess Petey Test VBG pH POC VBG pCO2 POC VBG pO2 Mixed VBG HCO3 Carboxyhemoglobin Methemoglobin O2 Delivery Device Oxygen Flow Rate Vent Mode Vent Rate Mechanical Rate Pressure Support Vent Sodium 141 Potassium 3.6 Chloride 107 Carbon Dioxide 23 Anion Gap 10 BUN 22 H Creatinine 1.2 Creat Clearance w eGFR > 60 POC Glucometer Random Glucose 174 H Hemoglobin A1c % Lactic Acid 1.1 Calcium 6.9 L* Phosphorus Magnesium Total Bilirubin AST ALT Alkaline Phosphatase Troponin I C-Reactive Protein Total Protein Albumin Prealbumin Triglycerides Cholesterol Total LDL Cholesterol HDL Cholesterol TSH Free T4 Urine Color Urine Appearance Urine pH Ur Specific [place] Urine Protein Urine Glucose (UA) Urine Ketones Urine Blood Urine Nitrite Urine Bilirubin Urine Urobilinogen Ur Leukocyte Esterase Urine WBC (Auto) Urine RBC (Auto) Stool Occult Blood HIV 1&2 Antibody Screen HIV P24 Antigen Blood Type Antibody Screen 03/26/18 03/26/18 15:21 18:15 WBC 19.2 H RBC 4.14 Hgb 11.0 L Hct 32.2 L D MCV 77.8 L MCH 26.5 MCHC 34.0 RDW 14.6 Plt Count 161 MPV 11.4 H D Absolute Neuts (auto) 16.7 H Neutrophils % 86.7 H Neutrophils % (Manual) Band Neutrophils % Lymphocytes % 5.1 L D Lymphocytes % (Manual) Monocytes % 7.3 Monocytes % (Manual) Eosinophils % 0.6 D Eosinophils % (Manual) Basophils % 0.3 Basophils % (Manual) Myelocytes % (Man) Promyelocytes % (Man) Blast Cells % (Manual) Nucleated RBC % 0 Metamyelocytes Platelet Estimate Platelet Comment ESR PT with INR INR PTT (Actin FS) Anticoagulation Therapy No Result Required. Puncture Site ABG pH ABG pCO2 at Pt Temp ABG pO2 at Pt Temp ABG HCO3 ABG O2 Sat (Measured) ABG O2 Content ABG Base Excess Petey Test VBG pH POC VBG pCO2 POC VBG pO2 Mixed VBG HCO3 Carboxyhemoglobin Methemoglobin O2 Delivery Device No Result Required. Oxygen Flow Rate No Result Required. Vent Mode No Result Required. Vent Rate No Result Required. Mechanical Rate No Result Required. Pressure Support Vent No Result Required. Sodium Potassium Chloride Carbon Dioxide Anion Gap BUN Creatinine Creat Clearance w eGFR POC Glucometer Random Glucose Hemoglobin A1c % Lactic Acid Calcium Phosphorus Magnesium Total Bilirubin AST ALT Alkaline Phosphatase Troponin I C-Reactive Protein Total Protein Albumin Prealbumin Triglycerides Cholesterol Total LDL Cholesterol HDL Cholesterol TSH Free T4 Urine Color Urine Appearance Urine pH Ur Specific [place] Urine Protein Urine Glucose (UA) Urine Ketones Urine Blood Urine Nitrite Urine Bilirubin Urine Urobilinogen Ur Leukocyte Esterase Urine WBC (Auto) Urine RBC (Auto) Stool Occult Blood HIV 1&2 Antibody Screen HIV P24 Antigen Blood Type Antibody Screen Active Medications Generic Name Dose Route Start Last Admin Trade Name Freq PRN Reason Stop Dose Admin Albuterol/Ipratropium 1 amp 03/26/18 05:47 Duoneb - NEB Q4H PRN SHORTNESS OF BREATH Chlorhexidine Gluconate 1 applic 03/26/18 22:00 Hibiclens For Decolonization - TP HS [place] Heparin Sodium (Porcine) 1,000 unit 03/25/18 22:34 Heparin - IVPUSH PRN PRN Heparin Heparin Sodium (Porcine) 5,000 unit 03/25/18 22:34 Heparin - IVPUSH PRN PRN Heparin Heparin Sodium (Porcine) 25, 500 mls @ 20 mls/hr 03/25/18 22:45 03/26/18 13: 30 000 unit/ Sodium Chloride IV 1,200 unit/hr TITR [place] 24 mls/hr Titration Protocol 1,000 UNIT/HR Propofol 1,000,000 mcg in 100 mls @ 2.409 mls/hr 03/26/18 07:45 03/26/18 12: 19 Diprivan - IVPB 30 mcg/kg/min TITR [place] 14.451 mls/hr Titration Protocol 5 MCG/KG/MIN Fentanyl 500 mcg/ Dextrose 100 mls @ 5 mls/hr 03/26/18 07:45 03/26/18 12:36 IVPB 50 mcg/hr TITR [place] 10 mls/hr Titration Protocol 25 MCG/HR Lactated Ringer's 1,000 ml in 1,000 mls @ 83 mls/hr 03/26/18 12:00 03/26/18 12:15 Lactated Ringers Solution IV 83 mls/hr ASDIR [place] Administration Potassium Phosphate 30 mm/ 260 mls @ 62.5 mls/hr 03/26/18 15:07 03/26/18 18: 06 Sodium Chloride IVPB 03/26/18 19:16 62.5 mls/hr ONCE ONE Administration Levofloxacin 750 mg in 150 mls @ 150 mls/hr 03/26/18 16:30 03/26/18 16:59 Levaquin 750 Mg Premixed Ivpb - IVPB 150 mls/hr DAILY [place] Administration Protocol Vancomycin HCl 1,250 mg/ 250 mls @ 166.667 mls/hr 03/26/18 16:30 Dextrose IVPB Q12H [place] Protocol Insulin Aspart 1 vial 03/26/18 07:00 03/26/18 17:07 Novolog Vial Sliding Scale - SQ Not Given ACHS [facility] Protocol Methylprednisolone Sodium Succinate 40 mg 03/26/18 13:59 03/26/18 16:20 Solu-Medrol - IVPUSH 03/31/18 23:59 40 mg DAILY [place] Administration Metoprolol Tartrate 2.5 mg 03/26/18 16:41 Lopressor Injection - IVPUSH Q6H PRN HYPERTENSION Mupirocin 1 applic 03/26/18 22:00 Bactroban Ointment (For Decolonization) - NS 03/31/18 22:01 BID [place] Pantoprazole Sodium 40 mg 03/26/18 12:00 03/26/18 12:15 Protonix Iv IVPUSH 40 mg BID [place] Administration CT scan of the chest, abdomen and pelvis without oral and intravenous contrast Coronal and sagittal reformatted images were obtained. Compared to prior chest x -ray dated 03/25/2018. In the chest, mild motion/breathing artifacts are limiting this exam. There is consolidation with airspace disease in the right lower lobe, posteriorly as well as in the right upper and middle lobe, perihilar region consistent with pneumonia. There is a almost total consolidation of the left lung with air bronchograms. Included lower neck appears unremarkable. There are a few lymph nodes in the aortopulmonary window with the largest measuring 1.6 cm. A left precarinal lymph node is present measuring 1.5 cm. Evaluation of the reji is quite limited on this exam due to lack of intravenous contrast. Minimal right and small left pleural effusion are present. In the abdomen and pelvis, the liver and spleen appear unremarkable. The pancreas, gallbladder and both adrenal glands appear unremarkable. Both kidneys are within normal limits in size. There is stranding of the perinephric fat, left more than right with a trace of right perinephric fluid. There is no evidence of hydroureteronephrosis, renal or ureteral stone, bilaterally. There is no evidence of small bowel obstruction. Normal-appearing terminal ileum and appendix. Normal stool burden in the colon with suggestion of a few diverticula in the distal descending and proximal sigmoid colon and without evidence of acute diverticulitis. No free air, free fluid or enlarged lymph nodes are identified. Normal size abdominal aorta down through its bifurcation with multiple calcified atheromatous plaques present. Moderately distended per shaped urinary bladder. Normal size prostate gland. Perirectal and pericecal fat are clear Visualized osseous structures appear intact. IMPRESSION: Patchy airspace disease and consolidation in the right perihilar region with consolidation/ atelectasis in the right lower lobe, posteriorly compatible with pneumonia. There is also consolidation of almost the entire left lung with air bronchogram consistent with pneumonia. Small left and minimal right pleural effusion. Slightly enlarged mediastinal lymph nodes measuring up to 1.6 cm. In the abdomen and pelvis, there is a mild stranding of the perinephric fat, bilaterally. No CT evidence of an acute process in the abdomen and pelvis. Moderately distended urinary bladder without oval-shaped, of uncertain clinical significance or etiology. Correlate clinically for further evaluation. A preliminary report was forwarded by the [facility], [employer] ASSESSMENT/PLAN: Patient is a 62 year old male with history of DM, HTN, HLD presents with complaint of shortness of breath for past five days. Sepsis secondary to pneumonia -Chest xray shows white out of left lung. -Patient received Vancomycin and Zosyn in ED -Now on Levaquin and Vanco -Lactic acid 2.8 now 1.1-resolved -IV normal saline 2,500mL bolus -Pulmonology consult (Dr. Stephens) -Infectious disease Dr Rosenbaum on board Acute respiratory failure -Likely secondary to the pneumonia -Patient currently saturating 98% on BiPAP FiO2 100% -F/U ABG Afib -Patient denies history of Afib, or any cardiac history in past. -CHADsVASC score of 2 -Heparin drip -Amiodorone and Diltiazem D/C'ed. -Cardiac monitoring -F/U Cardiology Dr Dawn Diabetes mellitus, likely DKA -Received 20 units novolog in ED. -Insulin drip initiated -Blood glucose fingerstick Q1H -BMP Q4H -LR@83cc/hr - HbA1c 11.5 Right lower extremity wound -Patient received Boostrix in ED -F/U wound culture -F/U Infectious disease consult (Dr. Brand) Elevated INR -Patient denies taking Coumadin, or any blood thinners. Denies alcohol use. Hypertension -Patient unsure which medication he takes for his blood pressure. -Patient will require medicine reconciliation to reinstate home medications. FEN -LR@83cc/hr -Follow CMP -NPO as patient currently on BiPAP Prophylaxis -Patient is on Heparin drip for Afib Disposition -care per icu team Visit type - Emergency Visit Emergency Visit: Yes ED Registration Date: 03/25/18 Care time: The patient presented to the Emergency Department on the above date and was hospitalized for further evaluation of their emergent condition. - New Patient This patient is new to me today: Yes Date on this admission: 03/26/18 - Critical Care Critical Care patient: Yes Total Critical Care Time (in minutes): 35 Critical Care Statement: The care of this patient involved high complexity decision making to prevent further life threatening deterioration of the patient 's condition and/or to evaluate & treat vital organ system(s) failure or risk of failure. - Discharge Referral Referred to [facility] No
[2018-03-26 18:34] LABS: ARTERIAL BLD GAS O2 SATURATION 89.8 % (90-98.9); ARTERIAL BLOOD GAS BASE EXCESS -4.4 meq/l (-2-2); ARTERIAL BLOOD GAS PCO2 32.6 mmHg (35-45); ARTERIAL BLOOD GAS pH 7.39 (7.35-7.45)
[2018-03-26 18:36] LABS: ALLENS TEST POSITIVE
[2018-03-26] MEDS: VANCOMYCIN 1,250 MG in DEXTROSE 5%-WATER - 250 ML IVPB SCH (19:04)
[2018-03-26] MEDS: ACETAMINOPHEN 1000 MG/100 ML VIAL (NON FORMULARY) IVPB PRN (19:25)
[2018-03-26 21:14] LABS: HEMATOCRIT 32.7 % (35.4-49); HEMOGLOBIN 10.9 GM/dL (11.7-16.9); MCH 26.3 pg (25.7-33.7); MCHC 33.4 g/dl (32.0-35.9); MEAN CELL VOLUME 78.9 fl (80-96); PLATELET COUNT 153 K/MM3 (134-434); RBC 4.14 M/mm3 (4.00-5.60); RDW 14.8 % (11.9-15.9); WHITE BLOOD COUNT 18.4 K/mm3 (4.0-10.0)
[2018-03-26] MEDS: MUPIROCIN 2% TOPICAL OINTMENT FOR DECOLONIZATION NS SCH (22:49)
[2018-03-26] MEDS: CHLORHEXIDINE GLUCONATE 4% CLEANSER FOR DECOLONIZATION TP SCH (22:50)
[2018-03-26] MEDS: HEPARIN - 25,000 UNIT in SODIUM CHLORIDE 495 ML IV SCH (22:50)
[2018-03-27] MEDS ORDERED: HEMOQUE TEST 1 EACH EACH ONE (03:12)
[2018-03-27] MEDS: INSULIN SLIDING SCALE (NOVOLOG) 1 VIAL SQ SCH ×6 (03:22→21:27)
[2018-03-27] MEDS: VANCOMYCIN 1,250 MG in DEXTROSE 5%-WATER - 250 ML IVPB SCH ×2 (04:25→17:24)
[2018-03-27 06:13] LABS: HEMATOCRIT 31.6 % (35.4-49); HEMOGLOBIN 10.6 GM/dL (11.7-16.9); MCH 26.1 pg (25.7-33.7); MCHC 33.4 g/dl (32.0-35.9); MEAN CELL VOLUME 77.9 fl (80-96); MEAN PLT VOLUME 11.5 fl (7.5-11.1); PLATELET COUNT 150 K/MM3 (134-434); RBC 4.05 M/mm3 (4.00-5.60)
[2018-03-27 07:52] LABS: ARTERIAL BLD GAS O2 SATURATION 95.5 % (90-98.9); ARTERIAL BLOOD GAS BASE EXCESS -4.7 meq/l (-2-2); ARTERIAL BLOOD GAS PCO2 42.6 mmHg (35-45); ARTERIAL BLOOD GAS PO2 95.4 mmHg (80-100); ARTERIAL BLOOD GAS pH 7.31 (7.35-7.45)
[2018-03-27 08:08] LABS: ALLENS TEST POSITIVE
[2018-03-27] MEDS ORDERED: fentaNYL CITRATE 250 MCG/5 ML VIAL ONE ×3 (08:23→21:33)
--- NOTE | 2018-03-27 09:01 | PN ---
Physical Exam: SUBJECTIVE: Patient seen and examined at bedside. Intubated and sedated. No overnight events per nurse. Amio drip was d/c'd. heparin still on board. OBJECTIVE: Vital Signs Period Temp Pulse Resp BP Sys/Santacruz Pulse Ox Last 24 Hr 97.2 F-101.6 F 67-89 12-123 94-124/57-75 90-99 GENERAL: Intubated and sedated, not alert or oriented LUNGS: mechanical breath sounds b/l, very rhonchorous, unchanged from previous exam HEART: regular rate/rhythm, no murmurs appreciated ABDOMEN: BS present, soft, nontender Extremities: no peripheral edema noted SKIN: Warm, dry, normal turgor, no rashes or lesions noted Laboratory Results - last 24 hr 03/26/18 03/26/18 03/26/18 05:13 05:13 08:59 WBC RBC Hgb Hct MCV MCH MCHC RDW Plt Count MPV Absolute Neuts (auto) Neutrophils % Lymphocytes % Monocytes % Eosinophils % Basophils % Nucleated RBC % ESR PTT (Actin FS) Anticoagulation Therapy No Result Required. Puncture Site Left radial ABG pH 7.39 ABG pCO2 at Pt Temp 34.5 L ABG pO2 at Pt Temp 64.4 L ABG HCO3 20.4 L ABG O2 Sat (Measured) 90.5 ABG O2 Content 20.3 ABG Base Excess -3.3 L Petey Test Positive O2 Delivery Device No Result Required. Oxygen Flow Rate Yes Vent Mode No Result Required. Vent Rate No Result Required. Mechanical Rate No Result Required. PEEP Pressure Support Vent No Result Required. Sodium 140 Potassium 4.3 Chloride 107 Carbon Dioxide 19 L Anion Gap 15 BUN 19 H Creatinine 0.9 Creat Clearance w eGFR > 60 POC Glucometer Random Glucose 231 H Lactic Acid Calcium 7.0 L Troponin I 0.02 C-Reactive Protein 45.4 H Prealbumin 3.0 L Triglycerides 161 H Cholesterol 99 Total LDL Cholesterol 56 HDL Cholesterol 14 L Free T4 1.55 H Free T3 1.5 L Stool Occult Blood HIV 1&2 Antibody Screen HIV P24 Antigen Blood Type Antibody Screen 03/26/18 03/26/18 03/26/18 09:08 10:00 10:00 WBC RBC Hgb Hct MCV MCH MCHC RDW Plt Count MPV Absolute Neuts (auto) Neutrophils % Lymphocytes % Monocytes % Eosinophils % Basophils % Nucleated RBC % ESR PTT (Actin FS) Anticoagulation Therapy Puncture Site ABG pH ABG pCO2 at Pt Temp ABG pO2 at Pt Temp ABG HCO3 ABG O2 Sat (Measured) ABG O2 Content ABG Base Excess Petey Test O2 Delivery Device Oxygen Flow Rate Vent Mode Vent Rate Mechanical Rate PEEP Pressure Support Vent Sodium 141 Potassium 3.6 Chloride 108 H Carbon Dioxide 24 Anion Gap 9 BUN 20 H Creatinine 1.1 Creat Clearance w eGFR > 60 POC Glucometer [phone] Random Glucose 210 H Lactic Acid Calcium 6.8 L* Troponin I C-Reactive Protein Prealbumin Triglycerides Cholesterol Total LDL Cholesterol HDL Cholesterol Free T4 Free T3 Stool Occult Blood HIV 1&2 Antibody Screen Negative HIV P24 Antigen Negative Blood Type Antibody Screen 03/26/18 03/26/18 03/26/18 10:00 10:00 10:00 WBC RBC Hgb Hct MCV MCH MCHC RDW Plt Count MPV Absolute Neuts (auto) Neutrophils % Lymphocytes % Monocytes % Eosinophils % Basophils % Nucleated RBC % ESR 92 H PTT (Actin FS) Anticoagulation Therapy Puncture Site ABG pH ABG pCO2 at Pt Temp ABG pO2 at Pt Temp ABG HCO3 ABG O2 Sat (Measured) ABG O2 Content ABG Base Excess Petey Test O2 Delivery Device Oxygen Flow Rate Vent Mode Vent Rate Mechanical Rate PEEP Pressure Support Vent Sodium Potassium Chloride Carbon Dioxide Anion Gap BUN Creatinine Creat Clearance w eGFR POC Glucometer Random Glucose Lactic Acid 2.8 H* Calcium Troponin I C-Reactive Protein Prealbumin Triglycerides Cholesterol Total LDL Cholesterol HDL Cholesterol Free T4 Free T3 Stool Occult Blood HIV 1&2 Antibody Screen HIV P24 Antigen Blood Type A POSITIVE Antibody Screen Negative 03/26/18 03/26/18 03/26/18 10:05 10:12 11:11 WBC RBC Hgb Hct MCV MCH MCHC RDW Plt Count MPV Absolute Neuts (auto) Neutrophils % Lymphocytes % Monocytes % Eosinophils % Basophils % Nucleated RBC % ESR PTT (Actin FS) Anticoagulation Therapy Puncture Site ABG pH ABG pCO2 at Pt Temp ABG pO2 at Pt Temp ABG HCO3 ABG O2 Sat (Measured) ABG O2 Content ABG Base Excess Petey Test O2 Delivery Device Oxygen Flow Rate Vent Mode Vent Rate Mechanical Rate PEEP Pressure Support Vent Sodium Potassium Chloride Carbon Dioxide Anion Gap BUN Creatinine Creat Clearance w eGFR POC Glucometer [phone] Random Glucose Lactic Acid Calcium Troponin I C-Reactive Protein Prealbumin Triglycerides Cholesterol Total LDL Cholesterol HDL Cholesterol Free T4 Free T3 Stool Occult Blood Negative HIV 1&2 Antibody Screen HIV P24 Antigen Blood Type A POSITIVE Antibody Screen 03/26/18 03/26/18 03/26/18 11:12 12:13 12:13 WBC RBC Hgb Hct MCV MCH MCHC RDW Plt Count MPV Absolute Neuts (auto) Neutrophils % Lymphocytes % Monocytes % Eosinophils % Basophils % Nucleated RBC % ESR PTT (Actin FS) 49.4 H Anticoagulation Therapy Puncture Site ABG pH ABG pCO2 at Pt Temp ABG pO2 at Pt Temp ABG HCO3 ABG O2 Sat (Measured) ABG O2 Content ABG Base Excess Petey Test O2 Delivery Device Oxygen Flow Rate Vent Mode Vent Rate Mechanical Rate PEEP Pressure Support Vent Sodium 139 Potassium 3.5 Chloride 108 H Carbon Dioxide 23 Anion Gap 9 BUN 21 H Creatinine 1.1 Creat Clearance w eGFR > 60 POC Glucometer [phone] Random Glucose 114 H Lactic Acid Calcium 6.6 L* Troponin I C-Reactive Protein Prealbumin Triglycerides Cholesterol Total LDL Cholesterol HDL Cholesterol Free T4 Free T3 Stool Occult Blood HIV 1&2 Antibody Screen HIV P24 Antigen Blood Type Antibody Screen 03/26/18 03/26/18 03/26/18 15:21 15:21 15:21 WBC 19.2 H RBC 4.14 Hgb 11.0 L Hct 32.2 L D MCV 77.8 L MCH 26.5 MCHC 34.0 RDW 14.6 Plt Count 161 MPV 11.4 H D Absolute Neuts (auto) 16.7 H Neutrophils % 86.7 H Lymphocytes % 5.1 L D Monocytes % 7.3 Eosinophils % 0.6 D Basophils % 0.3 Nucleated RBC % 0 ESR PTT (Actin FS) Anticoagulation Therapy Puncture Site ABG pH ABG pCO2 at Pt Temp ABG pO2 at Pt Temp ABG HCO3 ABG O2 Sat (Measured) ABG O2 Content ABG Base Excess Petey Test O2 Delivery Device Oxygen Flow Rate Vent Mode Vent Rate Mechanical Rate PEEP Pressure Support Vent Sodium 141 Potassium 3.6 Chloride 107 Carbon Dioxide 23 Anion Gap 10 BUN 22 H Creatinine 1.2 Creat Clearance w eGFR > 60 POC Glucometer Random Glucose 174 H Lactic Acid 1.1 Calcium 6.9 L* Troponin I C-Reactive Protein Prealbumin Triglycerides Cholesterol Total LDL Cholesterol HDL Cholesterol Free T4 Free T3 Stool Occult Blood HIV 1&2 Antibody Screen HIV P24 Antigen Blood Type Antibody Screen 03/26/18 03/26/18 03/26/18 18:15 19:20 21:00 WBC 18.4 H RBC 4.14 Hgb 10.9 L Hct 32.7 L MCV 78.9 L MCH 26.3 MCHC 33.4 RDW 14.8 Plt Count 153 MPV 11.0 Absolute Neuts (auto) Neutrophils % Lymphocytes % Monocytes % Eosinophils % Basophils % Nucleated RBC % ESR PTT (Actin FS) 50.7 H Anticoagulation Therapy No Result Required. Puncture Site Right radial ABG pH 7.39 ABG pCO2 at Pt Temp 32.6 L ABG pO2 at Pt Temp 62.0 L ABG HCO3 19.2 L ABG O2 Sat (Measured) 89.8 L ABG O2 Content 17.5 ABG Base Excess -4.4 L Petey Test Positive O2 Delivery Device Ventilater Oxygen Flow Rate 100% Vent Mode No Result Required. Vent Rate 12 Mechanical Rate No Result Required. PEEP 8.0 Pressure Support Vent 500 Sodium Potassium Chloride Carbon Dioxide Anion Gap BUN Creatinine Creat Clearance w eGFR POC Glucometer Random Glucose Lactic Acid Calcium Troponin I C-Reactive Protein Prealbumin Triglycerides Cholesterol Total LDL Cholesterol HDL Cholesterol Free T4 Free T3 Stool Occult Blood HIV 1&2 Antibody Screen HIV P24 Antigen Blood Type Antibody Screen 03/26/18 03/27/18 03/27/18 22:50 03:19 05:30 WBC 19.0 H RBC 4.05 Hgb 10.6 L Hct 31.6 L MCV 77.9 L MCH 26.1 MCHC 33.4 RDW 15.0 Plt Count 150 MPV 11.5 H Absolute Neuts (auto) Neutrophils % Lymphocytes % Monocytes % Eosinophils % Basophils % Nucleated RBC % ESR PTT (Actin FS) Anticoagulation Therapy Puncture Site ABG pH ABG pCO2 at Pt Temp ABG pO2 at Pt Temp ABG HCO3 ABG O2 Sat (Measured) ABG O2 Content ABG Base Excess Petey Test O2 Delivery Device Oxygen Flow Rate Vent Mode Vent Rate Mechanical Rate PEEP Pressure Support Vent Sodium Potassium Chloride Carbon Dioxide Anion Gap BUN Creatinine Creat Clearance w eGFR POC Glucometer > 400 Random Glucose 381 H* Lactic Acid Calcium Troponin I C-Reactive Protein Prealbumin Triglycerides Cholesterol Total LDL Cholesterol HDL Cholesterol Free T4 Free T3 Stool Occult Blood HIV 1&2 Antibody Screen HIV P24 Antigen Blood Type Antibody Screen 03/27/18 03/27/18 03/27/18 05:30 05:30 05:46 WBC RBC Hgb Hct MCV MCH MCHC RDW Plt Count MPV Absolute Neuts (auto) Neutrophils % Lymphocytes % Monocytes % Eosinophils % Basophils % Nucleated RBC % ESR PTT (Actin FS) 67.4 H Anticoagulation Therapy Puncture Site ABG pH ABG pCO2 at Pt Temp ABG pO2 at Pt Temp ABG HCO3 ABG O2 Sat (Measured) ABG O2 Content ABG Base Excess Petey Test O2 Delivery Device Oxygen Flow Rate Vent Mode Vent Rate Mechanical Rate PEEP Pressure Support Vent Sodium Potassium Chloride Carbon Dioxide Anion Gap BUN Creatinine Creat Clearance w eGFR POC Glucometer [phone] Random Glucose Lactic Acid Calcium Troponin I C-Reactive Protein Prealbumin Triglycerides Cholesterol Total LDL Cholesterol HDL Cholesterol Free T4 Free T3 Stool Occult Blood HIV 1&2 Antibody Screen Negative HIV P24 Antigen Negative Blood Type Antibody Screen 03/27/18 06:40 WBC RBC Hgb Hct MCV MCH MCHC RDW Plt Count MPV Absolute Neuts (auto) Neutrophils % Lymphocytes % Monocytes % Eosinophils % Basophils % Nucleated RBC % ESR PTT (Actin FS) Anticoagulation Therapy No Result Required. Puncture Site Right radial ABG pH 7.31 L ABG pCO2 at Pt Temp 42.6 D ABG pO2 at Pt Temp 95.4 D ABG HCO3 20.8 L ABG O2 Sat (Measured) 95.5 ABG O2 Content 17.2 ABG Base Excess -4.7 L Petey Test Positive O2 Delivery Device Vent Oxygen Flow Rate 100% Vent Mode No Result Required. Vent Rate 12 Mechanical Rate No Result Required. PEEP 8.0 Pressure Support Vent No Result Required. Sodium Potassium Chloride Carbon Dioxide Anion Gap BUN Creatinine Creat Clearance w eGFR POC Glucometer Random Glucose Lactic Acid Calcium Troponin I C-Reactive Protein Prealbumin Triglycerides Cholesterol Total LDL Cholesterol HDL Cholesterol Free T4 Free T3 Stool Occult Blood HIV 1&2 Antibody Screen HIV P24 Antigen Blood Type Antibody Screen Active Medications Generic Name Dose Route Start Last Admin Trade Name Freq PRN Reason Stop Dose Admin Acetaminophen 1,000 mg 03/26/18 19:02 03/26/18 19:25 Ofirmev Injection - IVPB 1,000 mg Q6H PRN Administration FEVER Albuterol/Ipratropium 1 amp 03/26/18 05:47 Duoneb - NEB Q4H PRN SHORTNESS OF BREATH Chlorhexidine Gluconate 1 applic 03/26/18 22:00 03/26/18 22:50 Hibiclens For Decolonization - TP 1 applic HS HOLLAND Administration Heparin Sodium (Porcine) 1,000 unit 03/25/18 22:34 Heparin - IVPUSH PRN PRN Heparin Heparin Sodium (Porcine) 5,000 unit 03/25/18 22:34 Heparin - IVPUSH PRN PRN Heparin Heparin Sodium (Porcine) 25, 500 mls @ 20 mls/hr 03/25/18 22:45 03/26/18 22: 50 000 unit/ Sodium Chloride IV 1,200 unit/hr TITR HOLLAND 24 mls/hr Administration Protocol 1,000 UNIT/HR Propofol 1,000,000 mcg in 100 mls @ 2.409 mls/hr 03/26/18 07:45 03/26/18 12: 19 Diprivan - IVPB 30 mcg/kg/min TITR HOLLAND 14.451 mls/hr Titration Protocol 5 MCG/KG/MIN Fentanyl 500 mcg/ Dextrose 100 mls @ 5 mls/hr 03/26/18 07:45 03/26/18 12:36 IVPB 50 mcg/hr TITR HOLLAND 10 mls/hr Titration Protocol 25 MCG/HR Lactated Ringer's 1,000 ml in 1,000 mls @ 83 mls/hr 03/26/18 12:00 03/26/18 12:15 Lactated Ringers Solution IV 83 mls/hr ASDIR HOLLAND Administration Levofloxacin 750 mg in 150 mls @ 150 mls/hr 03/26/18 16:30 03/26/18 16:59 Levaquin 750 Mg Premixed Ivpb - IVPB 150 mls/hr DAILY HOLLAND Administration Protocol Vancomycin HCl 1,250 mg/ 250 mls @ 166.667 mls/hr 03/26/18 16:30 03/27/18 04: 25 Dextrose IVPB 166.667 mls/hr Q12H HOLLAND Administration Protocol Insulin Aspart 1 vial 03/27/18 02:00 03/27/18 06:08 Novolog Vial Sliding Scale - SQ 10 units Q4HPO HOLLAND Administration Protocol Methylprednisolone Sodium Succinate 40 mg 03/26/18 13:59 03/26/18 16:20 Solu-Medrol - IVPUSH 03/31/18 23:59 40 mg DAILY HOLLAND Administration Metoprolol Tartrate 2.5 mg 03/26/18 16:41 Lopressor Injection - IVPUSH Q6H PRN HYPERTENSION Mupirocin 1 applic 03/26/18 22:00 10/26/18 22:49 Bactroban Ointment (For Decolonization) - NS 03/31/18 22:01 1 applic BID HOLLAND Administration Pantoprazole Sodium 40 mg 03/26/18 12:00 03/26/18 22:50 Protonix Iv IVPUSH 40 mg BID HOLLAND Administration ASSESSMENT/PLAN: ASSESSMENT/PLAN: Patient is a 62 year old male with history of DM, HTN, HLD presents with complaint of shortness of breath for past five days and admitted for the treatment of sepsis 2/2 pneumonia, DKA, and new onset atrial fibrillation #Sepsis 2/2 PNA: stable, patient's legionella antigen is positive, abx needed to be switched -legionella antigen presumptive positive, check serum legionella -repeat CXR continues to remain as white out of L lung -continue vancomycin and levaquin -lactic acidosis resolved -continue gentle hydration with 83cc/hr LR -ID consultation appreciated -ICU care appreciated -currently intubated and sedated; vent management per ICU TEAM #Atrial Fibrillation: rate controlled, new in onset -CHads warrants anticoagulation, patient currently on heparin drip -amio drip discontinued in setting of prolonged QTc -cards consultation appreciated -consider BB later this admission #Diabetic Ketoacidosis: likely resolved, still very hyperglycemic -patient is only on subcutaneous insulin, received 10U this morning -LR@83cc/hr -HbA1c 11.5 #Right lower extremity wound: stable -Patient received Boostrix in ED -F/U wound culture -F/U Infectious disease consult (Dr. Brand) -continue current antibiotic regimen #SONIDO: likely prerenal -fluid resuscitation at 100cc/hr -mg/phos #Elevated INR -Patient denies taking Coumadin, or any blood thinners. Denies alcohol use. #Hypertension: currently normotensive FEN -LR@83cc/hr -replenish lytes as necessary by ICU team -NPO while intubated Prophylaxis -heparin ggt Disposition -continue to manage in ICU Visit type - Emergency Visit Emergency Visit: No - New Patient This patient is new to me today: No - Critical Care Critical Care patient: Yes Total Critical Care Time (in minutes): 40 Critical Care Statement: The care of this patient involved high complexity decision making to prevent further life threatening deterioration of the patient 's condition and/or to evaluate & treat vital organ system(s) failure or risk of failure.
--- NOTE | 2018-03-27 09:09 | PN ---
Teaching Attending Note Name of Resident: Sanjay Fischer ATTENDING PHYSICIAN STATEMENT I saw and evaluated the patient. I reviewed the resident's note and discussed the case with the resident. I agree with the resident's findings and plan as documented. SUBJECTIVE: intubated, per nursing staff, not much secretions at this time. Has been afebrile for the past 10 hours. OBJECTIVE: Last Vital Signs Temp Pulse Resp BP Pulse Ox 97.2 F L 68 15 96/67 99 03/27/18 08:00 03/27/18 08:00 03/27/18 08:00 03/27/18 08:00 03/27/18 08:00 guerline(-3) intubated Vent setting: FIO2 50% PEEP 10, vVAC CVS;S1S2 Lungs: has good air movement with no rales in my exam Bd: BS (-), soft NT/ND eXT: no edema + wound Labs: . CBCD WBC 19.0 K/mm3 (4.0-10.0) H 03/27/18 05:30 RBC 4.05 M/mm3 (4.00-5.60) 03/27/18 05:30 Hgb 10.6 GM/dL (11.7-16.9) L 03/27/18 05:30 Hct 31.6 % (35.4-49) L 03/27/18 05:30 MCV 77.9 fl (80-96) L 03/27/18 05:30 MCHC 33.4 g/dl (32.0-35.9) 03/27/18 05:30 RDW 15.0 % (11.9-15.9) 03/27/18 05:30 Plt Count 150 K/MM3 (134-434) 03/27/18 05:30 MPV 11.5 fl (7.5-11.1) H 03/27/18 05:30 CMP Sodium 141 mmol/L (136-145) 03/26/18 15:21 Potassium 3.6 mmol/L (3.5-5.1) 03/26/18 15:21 Chloride 107 mmol/L (98-107) 03/26/18 15:21 Carbon Dioxide 23 mmol/L (21-32) 03/26/18 15:21 Anion Gap 10 MMOL/L (8-16) 03/26/18 15:21 BUN 22 mg/dL (7-18) H 03/26/18 15:21 Creatinine 1.2 mg/dL (0.55-1.3) 03/26/18 15:21 Creat Clearance w eGFR > 60 (>60) 03/26/18 15:21 Random Glucose 381 mg/dL (74-106) H* 03/26/18 22:50 Calcium 6.9 mg/dL (8.5-10.1) L* 03/26/18 15:21 Total Bilirubin 0.8 mg/dL (0.2-1) 03/26/18 05:13 AST 25 U/L (15-37) 03/26/18 05:13 ALT 22 U/L (13-61) 03/26/18 05:13 Alkaline Phosphatase 102 U/L (45-117) 03/26/18 05:13 Total Protein 5.9 g/dl (6.4-8.2) L 03/26/18 05:13 Albumin 1.8 g/dl (3.4-5.0) L 03/26/18 05:13 CARDIAC ENZYMES Troponin I 0.02 ng/ml (0.00-0.05) 03/26/18 05:13 CBCD WBC 19.0 K/mm3 (4.0-10.0) H 03/27/18 05:30 RBC 4.05 M/mm3 (4.00-5.60) 03/27/18 05:30 Hgb 10.6 GM/dL (11.7-16.9) L 03/27/18 05:30 Hct 31.6 % (35.4-49) L 03/27/18 05:30 MCV 77.9 fl (80-96) L 03/27/18 05:30 MCHC 33.4 g/dl (32.0-35.9) 03/27/18 05:30 RDW 15.0 % (11.9-15.9) 03/27/18 05:30 Plt Count 150 K/MM3 (134-434) 03/27/18 05:30 MPV 11.5 fl (7.5-11.1) H 03/27/18 05:30 Current Medications Generic Name Dose Route Start Last Admin Trade Name Freq PRN Reason Stop Dose Admin Acetaminophen 1,000 mg 03/26/18 19:02 03/26/18 19:25 Ofirmev Injection - IVPB 1,000 mg Q6H PRN Administration FEVER Albuterol/Ipratropium 1 amp 03/26/18 05:47 Duoneb - NEB Q4H PRN SHORTNESS OF BREATH Chlorhexidine Gluconate 1 applic 03/26/18 22:00 03/26/18 22:50 Hibiclens For Decolonization - TP 1 applic HS [facility] Administration Heparin Sodium (Porcine) 1,000 unit 03/25/18 22:34 Heparin - IVPUSH PRN PRN Heparin Heparin Sodium (Porcine) 5,000 unit 03/25/18 22:34 Heparin - IVPUSH PRN PRN Heparin Heparin Sodium (Porcine) 25, 500 mls @ 20 mls/hr 03/25/18 22:45 03/26/18 22: 50 000 unit/ Sodium Chloride IV 1,200 unit/hr TITR [facility] 24 mls/hr Administration Protocol 1,000 UNIT/HR Propofol 1,000,000 mcg in 100 mls @ 2.409 mls/hr 03/26/18 07:45 03/27/18 11: 39 Diprivan - IVPB 45 mcg/kg/min TITR [facility] 21.677 mls/hr Administration Protocol 5 MCG/KG/MIN Fentanyl 500 mcg/ Dextrose 100 mls @ 5 mls/hr 03/26/18 07:45 03/27/18 09:18 IVPB 50 mcg/hr TITR [facility] 10 mls/hr Administration Protocol 25 MCG/HR Levofloxacin 750 mg in 150 mls @ 150 mls/hr 03/26/18 16:30 03/27/18 09:20 Levaquin 750 Mg Premixed Ivpb - IVPB 150 mls/hr DAILY [facility] Administration Protocol Vancomycin HCl 1,250 mg/ 250 mls @ 166.667 mls/hr 03/26/18 16:30 03/27/18 04: 25 Dextrose IVPB 166.667 mls/hr Q12H [facility] Administration Protocol Lactated Ringer's 1,000 ml in 1,000 mls @ 100 mls/hr 03/27/18 10:05 03/27/18 12:03 Lactated Ringers Solution IV 100 mls/hr ASDIR [facility] Administration Insulin Aspart 1 vial 03/27/18 02:00 03/27/18 14:16 Novolog Vial Sliding Scale - SQ 8 units Q4HPO [facility] Administration Protocol Methylprednisolone Sodium Succinate 40 mg 03/26/18 13:59 03/27/18 09:22 Solu-Medrol - IVPUSH 03/31/18 23:59 40 mg DAILY [facility] Administration Metoprolol Tartrate 2.5 mg 03/26/18 16:41 Lopressor Injection - IVPUSH Q6H PRN HYPERTENSION Mupirocin 1 applic 03/26/18 22:00 03/27/18 09:19 Bactroban Ointment (For Decolonization) - NS 03/31/18 22:01 1 applic BID [facility] Administration Pantoprazole Sodium 40 mg 03/26/18 12:00 03/27/18 09:20 Protonix Iv IVPUSH 40 mg BID [facility] Administration ASSESSMENT AND PLAN: 62 Y/O M W uncontrolled DM, HTN, HLD P/W SOB for 5 days, found to be in hypoxic respiratory failure and sepsis due to PNA, intubated for hypoxic respiratory failure, newly dxed Afib. Hypoxic respiratory failure, S/P intubation, likely in the setting of PNA + legionella Also has MRSA in the leg wound. C/W ABX per ID recs, pending further results of the CXS Will reevaluate for possible extubation in 2 days pending improvement of the symptoms. at this time he is still on FIO2 100% Which I asked the ICU team regards the plan for decreasing FIO2 which they will do. HOB elevated moth hygiene daily sedation holiday ICU recommendations and help highly appreciated Severe sepsis:due to PNA: now improved with IV hydration and ABX, will C/W current ABX regimen pending further results of the CXs. ID team on board, their recommendation appreciated/W ABX per ID recs, pending further results of the CXS. check Vanc levels. cardiac: Afib: no known HX, TTE no significant abnormality, now back to SR with amio load. Amio was DCed last night as there was concern for prolonged QT interval. can consider initiating Bblocker, will discuss with cardiology. further planning can be discussed with patient more stable,Can be a candidate for EP evaluation and intervention considering that he has close to NL TTE. DM: uncontrolled at baseline, P/W HHS: on insulin drip, with hydration and k repletion. SONIDO: Likely dehydration, Will give 500 cc IV bolus and evaluate the response, I/ O control/ sent urine lytes. PPX: in the setting of intubation, on PPI DVT ppx: on heparin drip for Afib at this time Diet: will reevaluate for extubation tomorrow and if no plan will place NGT and start the feeds Code: FC Rest of the management per HS notes
[2018-03-27] MEDS: FENTANYL INJECTION 500 MCG in DEXTROSE 5%-WATER - 90 ML IVPB SCH (09:18)
[2018-03-27] MEDS: MUPIROCIN 2% TOPICAL OINTMENT FOR DECOLONIZATION NS SCH ×2 (09:19→21:26)
[2018-03-27] MEDS: PANTOPRAZOLE SODIUM 40 MG VIAL IVPUSH SCH ×2 (09:20→21:28)
[2018-03-27] MEDS: methylPREDNISolone NA SUCC 40 MG/1 ML VIAL IVPUSH SCH (09:22)
[2018-03-27 10:02] LABS: ALBUMIN 1.5 g/dl (3.4-5.0); ALK PHOS 84 U/L (45-117); ANION GAP 11 MMOL/L (8-16); BILIRUBIN,TOTAL 0.5 mg/dL (0.2-1); BLOOD UREA NITROGEN 34 mg/dL (7-18); CHLORIDE 108 mmol/L (98-107); CO2 21 mmol/L (21-32); CREATININE 1.4 mg/dL (0.55-1.3); POTASSIUM 4.2 mmol/L (3.5-5.1); SGOT/AST 20 U/L (15-37); SGPT/ALT 17 U/L (13-61); SODIUM 139 mmol/L (136-145); TOT PROT 4.9 g/dl (6.4-8.2)
[2018-03-27 10:04] LABS: CALCIUM 6.8 mg/dL (8.5-10.1); GLUCOSE,RANDOM 340 mg/dL (74-106)
--- NOTE | 2018-03-27 10:41 | PN ---
Progress Note, Physician History of Present Illness: Sedated on ventilator No acute distress Temps down afebrile WBC remains elevated - Current Medication List Current Medications: Active Medications Acetaminophen (Ofirmev Injection -) 1,000 mg IVPB Q6H PRN PRN Reason: FEVER Last Admin: 03/26/18 19:25 Dose: 1,000 mg Albuterol/Ipratropium (Duoneb -) 1 amp NEB Q4H PRN PRN Reason: SHORTNESS OF BREATH Chlorhexidine Gluconate (Hibiclens For Decolonization -) 1 applic TP HS [facility] Last Admin: 03/26/18 22:50 Dose: 1 applic Heparin Sodium (Porcine) (Heparin -) 1,000 unit IVPUSH PRN PRN PRN Reason: Heparin Heparin Sodium (Porcine) (Heparin -) 5,000 unit IVPUSH PRN PRN PRN Reason: Heparin Heparin Sodium (Porcine) 25, (000 unit/ Sodium Chloride) 500 mls @ 20 mls/hr IV TITR [facility]; Protocol Last Admin: 03/26/18 22:50 Dose: 1,200 unit/hr, 24 mls/hr Propofol (Diprivan -) 1,000,000 mcg in 100 mls @ 2.409 mls/hr IVPB TITR [facility]; Protocol Last Titration: 03/26/18 12:19 Dose: 30 mcg/kg/min, 14.451 mls/hr Fentanyl 500 mcg/ Dextrose 100 mls @ 5 mls/hr IVPB TITR [facility]; Protocol Last Admin: 03/27/18 09:18 Dose: 50 mcg/hr, 10 mls/hr Levofloxacin (Levaquin 750 Mg Premixed Ivpb -) 750 mg in 150 mls @ 150 mls/hr IVPB DAILY [facility]; Protocol Last Admin: 03/27/18 09:20 Dose: 150 mls/hr Vancomycin HCl 1,250 mg/ (Dextrose) 250 mls @ 166.667 mls/hr IVPB Q12H [facility]; Protocol Last Admin: 03/27/18 04:25 Dose: 166.667 mls/hr Lactated Ringer's (Lactated Ringers Solution) 1,000 ml in 1,000 mls @ 100 mls/ hr IV ASDIR [facility] Insulin Aspart (Novolog Vial Sliding Scale -) 1 vial SQ Q4HPO [facility]; Protocol Last Admin: 03/27/18 06:08 Dose: 10 units Methylprednisolone Sodium Succinate (Solu-Medrol -) [address] [facility] Stop: 03/31/18 23:59 Last Admin: 03/27/18 09:22 Dose: 40 mg Metoprolol Tartrate (Lopressor Injection -) 2.5 mg IVPUSH Q6H PRN PRN Reason: HYPERTENSION Mupirocin (Bactroban Ointment (For Decolonization) -) [address] [facility] Stop: 03/31/18 22:01 Last Admin: 03/27/18 09:19 Dose: 1 applic Pantoprazole Sodium (Protonix Iv) [address] [facility] Last Admin: 03/27/18 09:20 Dose: 40 mg - Objective Vital Signs: Vital Signs Temperature 97.3 F L 03/27/18 10:00 Pulse Rate 68 03/27/18 10:00 Respiratory Rate 123 H 03/27/18 10:00 Blood Pressure 95/68 03/27/18 10:00 O2 Sat by Pulse Oximetry (%) 99 03/27/18 08:00 Constitutional: Yes: No Distress Eyes: Yes: Conjunctiva Clear Cardiovascular: Yes: Regular Rate and Rhythm, S1, S2 Respiratory: Yes: Mechanically Ventilated Gastrointestinal: Yes: Normal Bowel Sounds, Soft, Abdomen, Obese. No: Tenderness Extremities: Yes: Other (+ soft tissue infection R thigh) Edema: No Labs: CBC, BMP 03/27/18 05:30 03/27/18 05:30 INR, PTT INR 1.51 (0.83-1.09) H 03/26/18 05:13 Assessment/Plan Multilobar legionella pneumonia Respiratory failure Sepsis secondary to lung source Leukocytosis lactic acidosis + Wound c/s MRSA Continue levaquin/ vancomycin Ventilatory support Contact precautions for + wound c/s MRSA
--- NOTE | 2018-03-27 10:44 | PN ---
Progress Note, Physician Chief Complaint: resp failure History of Present Illness: intubated/sedated - Current Medication List Current Medications: Active Medications Acetaminophen (Ofirmev Injection -) 1,000 mg IVPB Q6H PRN PRN Reason: FEVER Last Admin: 03/26/18 19:25 Dose: 1,000 mg Albuterol/Ipratropium (Duoneb -) 1 amp NEB Q4H PRN PRN Reason: SHORTNESS OF BREATH Chlorhexidine Gluconate (Hibiclens For Decolonization -) 1 applic TP HS [facility] Last Admin: 03/26/18 22:50 Dose: 1 applic Heparin Sodium (Porcine) (Heparin -) 1,000 unit IVPUSH PRN PRN PRN Reason: Heparin Heparin Sodium (Porcine) (Heparin -) 5,000 unit IVPUSH PRN PRN PRN Reason: Heparin Heparin Sodium (Porcine) 25, (000 unit/ Sodium Chloride) 500 mls @ 20 mls/hr IV TITR [facility]; Protocol Last Admin: 03/26/18 22:50 Dose: 1,200 unit/hr, 24 mls/hr Propofol (Diprivan -) 1,000,000 mcg in 100 mls @ 2.409 mls/hr IVPB TITR [facility]; Protocol Last Titration: 03/26/18 12:19 Dose: 30 mcg/kg/min, 14.451 mls/hr Fentanyl 500 mcg/ Dextrose 100 mls @ 5 mls/hr IVPB TITR [facility]; Protocol Last Admin: 03/27/18 09:18 Dose: 50 mcg/hr, 10 mls/hr Levofloxacin (Levaquin 750 Mg Premixed Ivpb -) 750 mg in 150 mls @ 150 mls/hr IVPB DAILY [facility]; Protocol Last Admin: 03/27/18 09:20 Dose: 150 mls/hr Vancomycin HCl 1,250 mg/ (Dextrose) 250 mls @ 166.667 mls/hr IVPB Q12H [facility]; Protocol Last Admin: 03/27/18 04:25 Dose: 166.667 mls/hr Lactated Ringer's (Lactated Ringers Solution) 1,000 ml in 1,000 mls @ 100 mls/ hr IV ASDIR [facility] Insulin Aspart (Novolog Vial Sliding Scale -) 1 vial SQ Q4HPO [facility]; Protocol Last Admin: 03/27/18 06:08 Dose: 10 units Methylprednisolone Sodium Succinate (Solu-Medrol -) 40 mg IVPUSH DAILY [facility] Stop: 03/31/18 23:59 Last Admin: 03/27/18 09:22 Dose: 40 mg Metoprolol Tartrate (Lopressor Injection -) 2.5 mg IVPUSH Q6H PRN PRN Reason: HYPERTENSION Mupirocin (Bactroban Ointment (For Decolonization) -) 1 applic NS BID [facility] Stop: 03/31/18 22:01 Last Admin: 03/27/18 09:19 Dose: 1 applic Pantoprazole Sodium (Protonix Iv) 40 mg IVPUSH BID [facility] Last Admin: 03/27/18 09:20 Dose: 40 mg - Objective Vital Signs: Vital Signs Temperature 97.3 F L 03/27/18 10:00 Pulse Rate 68 03/27/18 10:00 Respiratory Rate 123 H 03/27/18 10:00 Blood Pressure 95/68 03/27/18 10:00 O2 Sat by Pulse Oximetry (%) 99 03/27/18 08:00 Constitutional: Yes: Well Nourished, No Distress, Calm Cardiovascular: Yes: Regular Rate and Rhythm, S1, S2. No: JVD (tds exam), Gallop, Murmur Respiratory: Yes: Regular, CTA Bilaterally (anteriorly). No: Accessory Muscle Use, Rales, Wheezes Extremities: No: Cold Edema: No Neurological: No: Alert, Oriented, Seizure Psychiatric: No: Agitated Labs: CBC, BMP 03/27/18 05:30 03/27/18 05:30 INR, PTT INR 1.51 (0.83-1.09) H 03/26/18 05:13 Assessment/Plan ct chest: b/l pna ecg: afib vr 154, no ischemic changes, nl qtc echo 03/18: nl LVSF. nl RV. nl LA. mild MR/TR. RVSP 30-40 tele: NSR, brief PAT a/p: 62 m hx dm, hld, htn here with fever, leg wound. sepsis, PNA, acute resp failure: -has sahu abscess as well as b/l pna -cont abx per ID/crit care -vent management per ICU team -no signs chf or acs -no pressor requirement at persent afib, rvr: -unknown if new onset -in er started on dilt gtt and amio gtt-->sinus. -dc'd diltiazem given sepsis with soft BPs. -cont amio gtt for now -chadsvasc 2 warrants ac, cont hep gtt for now -tele monitoring anemia: -hgb down 14 to 10, stable x few days -on UFH gtt -observe trend, watch for melena SONIDO: -bun/creat up 03/27, ? intravasc vol depletion in setting of DKA -agree with IVF as ordered dm: -on insulin gtt for dka -per crit care htn: -bp soft here, often 90s syst -hold home htn meds for now given sepsis, risk for severe hypotension est time spent in pt exam, data review, and formulating mgmt plan of potentially life threatening medical problems = 35 min
[2018-03-27] MEDS: PROPOFOL 1,000,000 MCG/100 ML VIAL IVPB SCH ×2 (11:39→17:26)
--- NOTE | 2018-03-27 11:55 | PN ---
Teaching Attending Note Name of Resident: Alexx Rabago ATTENDING PHYSICIAN STATEMENT I saw and evaluated the patient. I reviewed the resident's note and discussed the case with the resident. I agree with the resident's findings and plan as documented. SUBJECTIVE: Pt seen and examined in the ICU. Remains intubated, sedated. Vented on volume assist control with 100% FiO2, PEEP 8. OBJECTIVE: Vital Signs Period Temp Pulse Resp BP Sys/Santacruz Pulse Ox Last 24 Hr 97.2 F-101.3 F 67-88 12-123 94-124/57-68 90-99 Intake & Output 03/24/18 03/25/18 03/26/18 03/27/18 23:59 23:59 23:59 23:59 Intake Total 2026.4 1069 Output Total 955 700 Balance 1071.4 369 Weight 80.286 kg 83.4 kg 83.1 kg Gen: intubated, sedated Heart: RRR Lung: decreased breath sounds at the bases Abd: soft, nontender Ext: no edema CBC, BMP 03/27/18 05:30 03/27/18 05:30 Active Medications Acetaminophen (Ofirmev Injection -) 1,000 mg IVPB Q6H PRN PRN Reason: FEVER Last Admin: 03/26/18 19:25 Dose: 1,000 mg Albuterol/Ipratropium (Duoneb -) 1 amp NEB Q4H PRN PRN Reason: SHORTNESS OF BREATH Chlorhexidine Gluconate (Hibiclens For Decolonization -) 1 applic TP HS [facility] Last Admin: 03/26/18 22:50 Dose: 1 applic Heparin Sodium (Porcine) (Heparin -) 1,000 unit IVPUSH PRN PRN PRN Reason: Heparin Heparin Sodium (Porcine) (Heparin -) 5,000 unit IVPUSH PRN PRN PRN Reason: Heparin Heparin Sodium (Porcine) 25, (000 unit/ Sodium Chloride) 500 mls @ 20 mls/hr IV TITR [facility]; Protocol Last Admin: 03/26/18 22:50 Dose: 1,200 unit/hr, 24 mls/hr Propofol (Diprivan -) 1,000,000 mcg in 100 mls @ 2.409 mls/hr IVPB TITR [facility]; Protocol Last Admin: 03/27/18 11:39 Dose: 45 mcg/kg/min, 21.677 mls/hr Fentanyl 500 mcg/ Dextrose 100 mls @ 5 mls/hr IVPB TITR [facility]; Protocol Last Admin: 03/27/18 09:18 Dose: 50 mcg/hr, 10 mls/hr Levofloxacin (Levaquin 750 Mg Premixed Ivpb -) 750 mg in 150 mls @ 150 mls/hr IVPB DAILY [facility]; Protocol Last Admin: 03/27/18 09:20 Dose: 150 mls/hr Vancomycin HCl 1,250 mg/ (Dextrose) 250 mls @ 166.667 mls/hr IVPB Q12H [facility]; Protocol Last Admin: 03/27/18 04:25 Dose: 166.667 mls/hr Lactated Ringer's (Lactated Ringers Solution) 1,000 ml in 1,000 mls @ 100 mls/ hr IV ASDIR [facility] Insulin Aspart (Novolog Vial Sliding Scale -) 1 vial SQ Q4HPO [facility]; Protocol Last Admin: 03/27/18 06:08 Dose: 10 units Methylprednisolone Sodium Succinate (Solu-Medrol -) 40 mg IVPUSH DAILY [facility] Stop: 03/31/18 23:59 Last Admin: 03/27/18 09:22 Dose: 40 mg Metoprolol Tartrate (Lopressor Injection -) 2.5 mg IVPUSH Q6H PRN PRN Reason: HYPERTENSION Mupirocin (Bactroban Ointment (For Decolonization) -) 1 applic NS BID [facility] Stop: 03/31/18 22:01 Last Admin: 03/27/18 09:19 Dose: 1 applic Pantoprazole Sodium (Protonix Iv) 40 mg IVPUSH BID [facility] Last Admin: 03/27/18 09:20 Dose: 40 mg ASSESSMENT AND PLAN: Acute Hypoxic Respiratory Failure Legionella Pneumonia Severe Sepsis Acute Kidney Injury Lactic Acidosis ARDS Atrial Fibrillation with RVR HTN DM - continue antibiotics - monitor QTc - rate control - continue anticoagulation - IVF - monitor urine output, creatinine - low tidal volume ventilation 6cc/kg/IBW - keep Pplat <30 - taper FiO2 to keep SpO2 >90% - keep PEEP - inhaled bronchodilators - start enteral feeds - not a candidate for weaning at this time - DVT/GI prophylaxis critical care time spent in reviewing chart, evaluating patient and formulating plan 35 min
[2018-03-27] MEDS ORDERED: INSULIN (NOVOLOG) ASPART 100 UNITS/ML 10ML VIAL ONE (12:01)
[2018-03-27] MEDS: LACTATED RINGERS SOLUTION 1,000 ML/1,000 ML INFUS.BAG IV SCH (12:03)
[2018-03-27 13:19] LABS: MAGNESIUM 3.5 mg/dL (1.8-2.4); PHOSPHOROUS 3.6 mg/dL (2.5-4.9)
--- NOTE | 2018-03-27 13:39 | PN ---
Physical Exam: SUBJECTIVE: Patient seen and examined in the ICU. Remains intubated, sedated. No overnight events per nurse. Amio drip was d/c'd. heparin still on board. HR ctl 60-80s. Vented on volume AC with 100% FiO2, PEEP 8. OBJECTIVE: Vital Signs Period Temp Pulse Resp BP Sys/Santacruz Pulse Ox Last 24 Hr 97.2 F-101.3 F 67-78 13-123 94-124/57-68 90-99 GENERAL: Intubated and sedated, not alert or oriented LUNGS: mechanical breath sounds b/l, very rhonchorous, unchanged from previous exam HEART: RRR, S1 S2 no m/r/g ABDOMEN: BS present, soft, NTND Extremities: no peripheral edema noted SKIN: Warm, dry, normal turgor, no rashes or lesions noted Laboratory Results - last 24 hr 03/26/18 03/26/18 03/26/18 05:13 09:08 11:12 WBC RBC Hgb Hct MCV MCH MCHC RDW Plt Count MPV Absolute Neuts (auto) Neutrophils % Lymphocytes % Monocytes % Eosinophils % Basophils % Nucleated RBC % PTT (Actin FS) Anticoagulation Therapy Puncture Site ABG pH ABG pCO2 at Pt Temp ABG pO2 at Pt Temp ABG HCO3 ABG O2 Sat (Measured) ABG O2 Content ABG Base Excess Petey Test O2 Delivery Device Oxygen Flow Rate Vent Mode Vent Rate Mechanical Rate PEEP Pressure Support Vent Sodium Potassium Chloride Carbon Dioxide Anion Gap BUN Creatinine Creat Clearance w eGFR POC Glucometer [phone] Random Glucose Lactic Acid Calcium Total Bilirubin AST ALT Alkaline Phosphatase Total Protein Albumin Free T3 1.5 L HIV 1&2 Antibody Screen HIV P24 Antigen 03/26/18 03/26/18 03/26/18 12:13 15:21 15:21 WBC RBC Hgb Hct MCV MCH MCHC RDW Plt Count MPV Absolute Neuts (auto) Neutrophils % Lymphocytes % Monocytes % Eosinophils % Basophils % Nucleated RBC % PTT (Actin FS) Anticoagulation Therapy Puncture Site ABG pH ABG pCO2 at Pt Temp ABG pO2 at Pt Temp ABG HCO3 ABG O2 Sat (Measured) ABG O2 Content ABG Base Excess Petey Test O2 Delivery Device Oxygen Flow Rate Vent Mode Vent Rate Mechanical Rate PEEP Pressure Support Vent Sodium 139 141 Potassium 3.5 3.6 Chloride 108 H 107 Carbon Dioxide 23 23 Anion Gap 9 10 BUN 21 H 22 H Creatinine 1.1 1.2 Creat Clearance w eGFR > 60 > 60 POC Glucometer Random Glucose 114 H 174 H Lactic Acid 1.1 Calcium 6.6 L* 6.9 L* Total Bilirubin AST ALT Alkaline Phosphatase Total Protein Albumin Free T3 HIV 1&2 Antibody Screen HIV P24 Antigen 03/26/18 03/26/18 03/26/18 15:21 18:15 19:20 WBC 19.2 H RBC 4.14 Hgb 11.0 L Hct 32.2 L D MCV 77.8 L MCH 26.5 MCHC 34.0 RDW 14.6 Plt Count 161 MPV 11.4 H D Absolute Neuts (auto) 16.7 H Neutrophils % 86.7 H Lymphocytes % 5.1 L D Monocytes % 7.3 Eosinophils % 0.6 D Basophils % 0.3 Nucleated RBC % 0 PTT (Actin FS) 50.7 H Anticoagulation Therapy No Result Required. Puncture Site Right radial ABG pH 7.39 ABG pCO2 at Pt Temp 32.6 L ABG pO2 at Pt Temp 62.0 L ABG HCO3 19.2 L ABG O2 Sat (Measured) 89.8 L ABG O2 Content 17.5 ABG Base Excess -4.4 L Petey Test Positive O2 Delivery Device Ventilater Oxygen Flow Rate 100% Vent Mode No Result Required. Vent Rate 12 Mechanical Rate No Result Required. PEEP 8.0 Pressure Support Vent 500 Sodium Potassium Chloride Carbon Dioxide Anion Gap BUN Creatinine Creat Clearance w eGFR POC Glucometer Random Glucose Lactic Acid Calcium Total Bilirubin AST ALT Alkaline Phosphatase Total Protein Albumin Free T3 HIV 1&2 Antibody Screen HIV P24 Antigen 03/26/18 03/26/18 03/27/18 21:00 22:50 03:19 WBC 18.4 H RBC 4.14 Hgb 10.9 L Hct 32.7 L MCV 78.9 L MCH 26.3 MCHC 33.4 RDW 14.8 Plt Count 153 MPV 11.0 Absolute Neuts (auto) Neutrophils % Lymphocytes % Monocytes % Eosinophils % Basophils % Nucleated RBC % PTT (Actin FS) Anticoagulation Therapy Puncture Site ABG pH ABG pCO2 at Pt Temp ABG pO2 at Pt Temp ABG HCO3 ABG O2 Sat (Measured) ABG O2 Content ABG Base Excess Petey Test O2 Delivery Device Oxygen Flow Rate Vent Mode Vent Rate Mechanical Rate PEEP Pressure Support Vent Sodium Potassium Chloride Carbon Dioxide Anion Gap BUN Creatinine Creat Clearance w eGFR POC Glucometer > 400 Random Glucose 381 H* Lactic Acid Calcium Total Bilirubin AST ALT Alkaline Phosphatase Total Protein Albumin Free T3 HIV 1&2 Antibody Screen HIV P24 Antigen 03/27/18 03/27/18 03/27/18 05:30 05:30 05:30 WBC 19.0 H RBC 4.05 Hgb 10.6 L Hct 31.6 L MCV 77.9 L MCH 26.1 MCHC 33.4 RDW 15.0 Plt Count 150 MPV 11.5 H Absolute Neuts (auto) Neutrophils % Lymphocytes % Monocytes % Eosinophils % Basophils % Nucleated RBC % PTT (Actin FS) 67.4 H Anticoagulation Therapy Puncture Site ABG pH ABG pCO2 at Pt Temp ABG pO2 at Pt Temp ABG HCO3 ABG O2 Sat (Measured) ABG O2 Content ABG Base Excess Petey Test O2 Delivery Device Oxygen Flow Rate Vent Mode Vent Rate Mechanical Rate PEEP Pressure Support Vent Sodium 139 Potassium 4.2 Chloride 108 H Carbon Dioxide 21 Anion Gap 11 BUN 34 H Creatinine 1.4 H Creat Clearance w eGFR 51.52 POC Glucometer Random Glucose 340 H* Lactic Acid Calcium 6.8 L* Total Bilirubin 0.5 AST 20 ALT 17 Alkaline Phosphatase 84 Total Protein 4.9 L Albumin 1.5 L Free T3 HIV 1&2 Antibody Screen HIV P24 Antigen 03/27/18 03/27/18 03/27/18 05:30 05:46 06:40 WBC RBC Hgb Hct MCV MCH MCHC RDW Plt Count MPV Absolute Neuts (auto) Neutrophils % Lymphocytes % Monocytes % Eosinophils % Basophils % Nucleated RBC % PTT (Actin FS) Anticoagulation Therapy No Result Required. Puncture Site Right radial ABG pH 7.31 L ABG pCO2 at Pt Temp 42.6 D ABG pO2 at Pt Temp 95.4 D ABG HCO3 20.8 L ABG O2 Sat (Measured) 95.5 ABG O2 Content 17.2 ABG Base Excess -4.7 L Petey Test Positive O2 Delivery Device Vent Oxygen Flow Rate 100% Vent Mode No Result Required. Vent Rate 12 Mechanical Rate No Result Required. PEEP 8.0 Pressure Support Vent No Result Required. Sodium Potassium Chloride Carbon Dioxide Anion Gap BUN Creatinine Creat Clearance w eGFR POC Glucometer [phone] Random Glucose Lactic Acid Calcium Total Bilirubin AST ALT Alkaline Phosphatase Total Protein Albumin Free T3 HIV 1&2 Antibody Screen Negative HIV P24 Antigen Negative 03/27/18 11:09 WBC RBC Hgb Hct MCV MCH MCHC RDW Plt Count MPV Absolute Neuts (auto) Neutrophils % Lymphocytes % Monocytes % Eosinophils % Basophils % Nucleated RBC % PTT (Actin FS) Anticoagulation Therapy Puncture Site ABG pH ABG pCO2 at Pt Temp ABG pO2 at Pt Temp ABG HCO3 ABG O2 Sat (Measured) ABG O2 Content ABG Base Excess Petey Test O2 Delivery Device Oxygen Flow Rate Vent Mode Vent Rate Mechanical Rate PEEP Pressure Support Vent Sodium Potassium Chloride Carbon Dioxide Anion Gap BUN Creatinine Creat Clearance w eGFR POC Glucometer [phone] Random Glucose Lactic Acid Calcium Total Bilirubin AST ALT Alkaline Phosphatase Total Protein Albumin Free T3 HIV 1&2 Antibody Screen HIV P24 Antigen Active Medications Generic Name Dose Route Start Last Admin Trade Name Pollo PRN Reason Stop Dose Admin Acetaminophen 1,000 mg 03/26/18 19:02 03/26/18 19:25 Ofirmev Injection - IVPB 1,000 mg Q6H PRN Administration FEVER Albuterol/Ipratropium 1 amp 03/26/18 05:47 Duoneb - NEB Q4H PRN SHORTNESS OF BREATH Chlorhexidine Gluconate 1 applic 03/26/18 22:00 03/26/18 22:50 Hibiclens For Decolonization - TP 1 applic HS HOLLAND Administration Heparin Sodium (Porcine) 1,000 unit 03/25/18 22:34 Heparin - IVPUSH PRN PRN Heparin Heparin Sodium (Porcine) 5,000 unit 03/25/18 22:34 Heparin - IVPUSH PRN PRN Heparin Heparin Sodium (Porcine) 25, 500 mls @ 20 mls/hr 03/25/18 22:45 03/26/18 22: 50 000 unit/ Sodium Chloride IV 1,200 unit/hr TITR HOLLAND 24 mls/hr Administration Protocol 1,000 UNIT/HR Propofol 1,000,000 mcg in 100 mls @ 2.409 mls/hr 03/26/18 07:45 03/27/18 11: 39 Diprivan - IVPB 45 mcg/kg/min TITR HOLLAND 21.677 mls/hr Administration Protocol 5 MCG/KG/MIN Fentanyl 500 mcg/ Dextrose 100 mls @ 5 mls/hr 03/26/18 07:45 03/27/18 09:18 IVPB 50 mcg/hr TITR HOLLAND 10 mls/hr Administration Protocol 25 MCG/HR Levofloxacin 750 mg in 150 mls @ 150 mls/hr 03/26/18 16:30 03/27/18 09:20 Levaquin 750 Mg Premixed Ivpb - IVPB 150 mls/hr DAILY HOLLAND Administration Protocol Vancomycin HCl 1,250 mg/ 250 mls @ 166.667 mls/hr 03/26/18 16:30 03/27/18 04: 25 Dextrose IVPB 166.667 mls/hr Q12H HOLLAND Administration Protocol Lactated Ringer's 1,000 ml in 1,000 mls @ 100 mls/hr 03/27/18 10:05 03/27/18 12:03 Lactated Ringers Solution IV 100 mls/hr ASDIR HOLLAND Administration Insulin Aspart 1 vial 03/27/18 02:00 03/27/18 12:02 Novolog Vial Sliding Scale - SQ 8 units Q4HPO HOLLAND Administration Protocol Methylprednisolone Sodium Succinate 40 mg 03/26/18 13:59 03/27/18 09:22 Solu-Medrol - IVPUSH 03/31/18 23:59 40 mg DAILY HOLLAND Administration Metoprolol Tartrate 2.5 mg 03/26/18 16:41 Lopressor Injection - IVPUSH Q6H PRN HYPERTENSION Mupirocin 1 applic 03/26/18 22:00 03/27/18 09:19 Bactroban Ointment (For Decolonization) - NS 03/31/18 22:01 1 applic BID HOLLAND Administration Pantoprazole Sodium 40 mg 03/26/18 12:00 03/27/18 09:20 Protonix Iv IVPUSH 40 mg BID HOLLAND Administration ASSESSMENT/PLAN: Patient is a 62 year old male who presented for shortness of breath, fever, chills, malaise and was found to have complete left lung white out on CXR, new onset atrial fibrillation, and DKA. Patient admitted to ICU for further monitoring and management. Found w/ presum pos legionella antigen NEURO: -intubated and sedated PULMONARY #Acute Hypoxic Respiratory failure -Likely secondary to Post obstructive Pneumonia from total white out and mass in the left lung. -Patient presented with 02 sat of 88% on 02 and required intubation -CT showing consolidation of entire L lung and post R lung c/w PNA -legionella antigen presumptive positive, f/u serum legionella -continue vancomycin and levaquin, per ID - monitor QTc, amio was dcd -Duo-Neb PRN -Maintain Sp02 >95% -abdominal/Pelvic CT no signs of metastatic disease or acute process. -Chest PT -daily ABG -not a candidate for weaning at this time -keep Pplat <30 -taper FiO2 to keep SpO2 >90% INFECTIOUS DISEASE #Sepsis Secondary to Bilateral Pneumonia -Likely post obstructive pneumonia from lung mass- possible lung malignancy -Chest X-Ray showing left lung mass and complete left sided white out. CT reveals bilateral PNA with pleural effusions -Tachycardic, febrile, leukocytosis, tachypneic, with lactic acidosis. BP was borderline hypotensive -legionella antigen presumptive positive, check serum legionella -repeat CXR continues to remain as white out of L lung -continue vancomycin and levaquin -lactic acidosis resolved -continue gentle hydration with 83cc/hr LR -ID consultation appreciated -Blood cultures neg -Sputum cultures neg -Duo-Nebs PRN -Chest PT -Repeat ABG -ID consult -HIV testing neg -Maintain 02% >95% CARDIOLOGY #Atrial Fibrillation w/ RVR -CHADSVASC score : 2 -Unsure of history of Afib -c/w Heparin drip for AC -was ctl on Cardizem drip and Amiodarone drip, cardizem was then dc, amio now dc due to QTc 483 and the need to start levaquin to tx legionella PNA -start metop 25 bid PO, maintain HR <110 -ECHO RV ystolic 30-40, nl LVSF, nl EF -Cardiology consult -cardiac monitoring #HTN -Currently normotensive -Hold off Anti-BP medications -Continue to monitor BP #HLD -Unsure if on any medications -Check lipid panel ENDOCRINOLOGY #Hyperglycemia/Diabetic Ketoacidosis -resolving -However, patient has serum bicarb >18, anion gap of 17, (+) urine ketones -Patient received 20 units of novolog in ED, Insulin drip was dcd -ISS -BGMs Q4H -A1c 11.5 HEMATOLOGY #acute blood loss? yesterday pt noted to have possible coffee ground emesis, H/H shows 2.5 gram drop in 24hr, however pt received large amounts of IVF for resuscitation, may be dilutional. H/H remains stable at 10.9-10.6, will continue to monitor, no current coffee ground emesis today or other obvious sources of bleeding. will dc hep and consider transfusion if cont to drop #Elevated INR -possible malignancy -Patient denies taking Coumadin, or any blood thinners. Denies alcohol use. -Continue to monitor F/E/N -IV LR @83mls/hr -replete prn -start enteral feeds Prophylaxis -Heparin drip for DVT -protonix bid Disposition -Full code -ICU monitoring Visit type - Emergency Visit Emergency Visit: Yes ED Registration Date: 03/25/18 Care time: The patient presented to the Emergency Department on the above date and was hospitalized for further evaluation of their emergent condition. - New Patient This patient is new to me today: Yes Date on this admission: 03/27/18 - Critical Care Critical Care patient: Yes Total Critical Care Time (in minutes): 40 Critical Care Statement: The care of this patient involved high complexity decision making to prevent further life threatening deterioration of the patient 's condition and/or to evaluate & treat vital organ system(s) failure or risk of failure.
--- NOTE | 2018-03-27 14:53 | EKG ---
Test Reason : Blood Pressure : / mmHG Vent. Rate : 067 BPM Atrial Rate : 067 BPM P-R Int : 142 ms QRS Dur : 084 ms QT Int : 440 ms P-R-T Axes : 015 043 040 degrees QTc Int : 464 ms SINUS RHYTHM WITH SINUS ARRHYTHMIA OTHERWISE NORMAL ECG Confirmed by MD Cheyanne, Bill ([id number]) on 03/27/2018 2:53:37 PM Referred By: Samuel JOHNSON Confirmed By:Bill Edward MD
--- NOTE | 2018-03-27 15:00 | EKG ---
Test Reason : Blood Pressure : / mmHG Vent. Rate : 079 BPM Atrial Rate : 079 BPM P-R Int : 126 ms QRS Dur : 074 ms QT Int : 390 ms P-R-T Axes : 010 056 049 degrees QTc Int : 447 ms NORMAL SINUS RHYTHM NORMAL ECG WHEN COMPARED WITH ECG OF 26-MAR-2018 14:22, NO SIGNIFICANT CHANGE WAS FOUND Confirmed by MD Edward Edward ([id number]) on 03/27/2018 2:59:43 PM Referred By: Confirmed By:Bill Edward MD
--- NOTE | 2018-03-27 15:02 | EKG ---
Test Reason : Blood Pressure : / mmHG Vent. Rate : 075 BPM Atrial Rate : 075 BPM P-R Int : 122 ms QRS Dur : 078 ms QT Int : 430 ms P-R-T Axes : 019 058 058 degrees QTc Int : 480 ms NORMAL SINUS RHYTHM PROLONGED QT ABNORMAL ECG WHEN COMPARED WITH ECG OF 25-MAR-2018 21:18, SINUS RHYTHM HAS REPLACED ATRIAL FIBRILLATION VENT. RATE HAS DECREASED BY 79 BPM NON-SPECIFIC CHANGE IN ST SEGMENT IN ANTEROLATERAL LEADS NONSPECIFIC T WAVE ABNORMALITY NO LONGER EVIDENT IN ANTERIOR LEADS Confirmed by MD Cheyanne, Bill ([id number]) on 03/27/2018 3:01:56 PM Referred By: KIMBERLY DYKES Confirmed By:Bill Edward MD
[2018-03-27] MEDS: AMINO ACIDS/PROTEIN HYDROLYS 30 ML LIQUID.PKT PO SCH (17:24)
[2018-03-27] MEDS ORDERED: PT OWN MED DRAWER 7, Y5N ONE (18:59)
[2018-03-27] MEDS: CHLORHEXIDINE GLUCONATE 4% CLEANSER FOR DECOLONIZATION TP SCH (21:27)
[2018-03-27] MEDS: HEPARIN - 25,000 UNIT in SODIUM CHLORIDE 495 ML IV SCH (23:00)
[2018-03-28] MEDS ORDERED: HEMOQUE TEST 1 EACH EACH ONE (02:36)
[2018-03-28] MEDS: INSULIN SLIDING SCALE (NOVOLOG) 1 VIAL SQ SCH ×6 (02:45→18:12)
[2018-03-28] MEDS: VANCOMYCIN 1,250 MG in DEXTROSE 5%-WATER - 250 ML IVPB SCH ×2 (04:03→16:13)
[2018-03-28 05:54] LABS: HEMATOCRIT 30.9 % (35.4-49); HEMOGLOBIN 10.3 GM/dL (11.7-16.9); MCH 26.1 pg (25.7-33.7); MCHC 33.3 g/dl (32.0-35.9); MEAN CELL VOLUME 78.3 fl (80-96); MEAN PLT VOLUME 11.5 fl (7.5-11.1); PLATELET COUNT 187 K/MM3 (134-434); RBC 3.95 M/mm3 (4.00-5.60); RDW 14.9 % (11.9-15.9)
[2018-03-28] MEDS ORDERED: fentaNYL CITRATE 250 MCG/5 ML VIAL ONE ×3 (06:21→20:19)
[2018-03-28] MEDS ORDERED: PROPOFOL 1,000,000 MCG/100 ML VIAL ONE (06:21)
[2018-03-28 06:25] LABS: ALBUMIN 1.4 g/dl (3.4-5.0); ALK PHOS 73 U/L (45-117); ANION GAP 8 MMOL/L (8-16); BILIRUBIN,TOTAL 0.4 mg/dL (0.2-1); BLOOD UREA NITROGEN 42 mg/dL (7-18); CHLORIDE 108 mmol/L (98-107); CO2 25 mmol/L (21-32); CREATININE 1.3 mg/dL (0.55-1.3); GLUCOSE,RANDOM 233 mg/dL (74-106); MAGNESIUM 3.5 mg/dL (1.8-2.4); PHOSPHOROUS 3.7 mg/dL (2.5-4.9); POTASSIUM 4.4 mmol/L (3.5-5.1); SGOT/AST 16 U/L (15-37); SGPT/ALT 15 U/L (13-61); SODIUM 140 mmol/L (136-145)
[2018-03-28 06:28] LABS: ARTERIAL BLD GAS O2 SATURATION 77.8 % (90-98.9); ARTERIAL BLOOD GAS BASE EXCESS -2.7 meq/l (-2-2); ARTERIAL BLOOD GAS PCO2 49.5 mmHg (35-45); ARTERIAL BLOOD GAS pH 7.29 (7.35-7.45)
[2018-03-28 07:04] LABS: ALLENS TEST POSITIVE
[2018-03-28 07:07] LABS: ARTERIAL BLOOD GAS PO2 48.2 mmHg (80-100)
--- NOTE | 2018-03-28 07:34 | PN ---
Progress Note (short form) - Note Progress Note: intubated/sedated Current Medications Generic Name Dose Route Start Last Admin Trade Name Pollo PRN Reason Stop Dose Admin Acetaminophen 1,000 mg 03/26/18 19:02 03/26/18 19:25 Ofirmev Injection - IVPB 1,000 mg Q6H PRN Administration FEVER Albuterol/Ipratropium 1 amp 03/26/18 05:47 Duoneb - NEB Q4H PRN SHORTNESS OF BREATH Amino Acids 30 ml 03/27/18 17:30 03/27/18 17:24 Prosource No Carb Liquid Pkt PO 30 ml BID@0800,1730 HOLLAND Administration Chlorhexidine Gluconate 1 applic 03/26/18 22:00 03/27/18 21:27 Hibiclens For Decolonization - TP 1 applic HS HOLLAND Administration Chlorhexidine Gluconate 15 ml 03/28/18 10:00 Peridex - MM BID HOLLAND Heparin Sodium (Porcine) 1,000 unit 03/25/18 22:34 Heparin - IVPUSH PRN PRN Heparin Heparin Sodium (Porcine) 5,000 unit 03/25/18 22:34 Heparin - IVPUSH PRN PRN Heparin Heparin Sodium (Porcine) 25, 500 mls @ 20 mls/hr 03/25/18 22:45 03/27/18 23: 00 000 unit/ Sodium Chloride IV 1,200 unit/hr TITR HOLLAND 24 mls/hr Administration Protocol 1,000 UNIT/HR Propofol 1,000,000 mcg in 100 mls @ 2.409 mls/hr 03/26/18 07:45 03/27/18 17: 26 Diprivan - IVPB 45 mcg/kg/min TITR HOLLAND 21.677 mls/hr Administration Protocol 5 MCG/KG/MIN Fentanyl 500 mcg/ Dextrose 100 mls @ 5 mls/hr 03/26/18 07:45 03/27/18 19:15 IVPB 75 mcg/hr TITR HOLLAND 15 mls/hr Titration Protocol 25 MCG/HR Levofloxacin 750 mg in 150 mls @ 150 mls/hr 03/26/18 16:30 03/27/18 09:20 Levaquin 750 Mg Premixed Ivpb - IVPB 150 mls/hr DAILY HOLLAND Administration Protocol Vancomycin HCl 1,250 mg/ 250 mls @ 166.667 mls/hr 03/26/18 16:30 03/28/18 04: 03 Dextrose IVPB 166.667 mls/hr Q12H HOLLAND Administration Protocol Lactated Ringer's 1,000 ml in 1,000 mls @ 100 mls/hr 03/27/18 10:05 03/27/18 12:03 Lactated Ringers Solution IV 100 mls/hr ASDIR HOLLAND Administration Insulin Aspart 1 vial 03/27/18 02:00 03/28/18 05:36 Novolog Vial Sliding Scale - SQ 6 units Q4HPO HOLLAND Administration Protocol Methylprednisolone Sodium Succinate 40 mg 03/26/18 13:59 03/27/18 09:22 Solu-Medrol - IVPUSH 03/31/18 23:59 40 mg DAILY HOLLAND Administration Metoprolol Tartrate 2.5 mg 03/26/18 16:41 Lopressor Injection - IVPUSH Q6H PRN HYPERTENSION Mupirocin 1 applic 03/26/18 22:00 03/27/18 21:26 Bactroban Ointment (For Decolonization) - NS 03/31/18 22:01 1 applic BID HOLLAND Administration Pantoprazole Sodium 40 mg 03/26/18 12:00 03/27/18 21:28 Protonix Iv IVPUSH 40 mg BID HOLLAND Administration Last Vital Signs Temp Pulse Resp BP Pulse Ox 97.7 F 64 20 105/69 96 03/28/18 06:00 03/28/18 06:00 03/28/18 06:30 03/28/18 06:00 03/27/18 21:17 General sedated CV S1 S2 RRR no murmur/rub/gallop Lungs coarse breath sounds Abdomen soft NT/ND obese Extremities no pedal edema CBCD WBC 20.0 K/mm3 (4.0-10.0) H 03/28/18 05:30 RBC 3.95 M/mm3 (4.00-5.60) L 03/28/18 05:30 Hgb 10.3 GM/dL (11.7-16.9) L 03/28/18 05:30 Hct 30.9 % (35.4-49) L 03/28/18 05:30 MCV 78.3 fl (80-96) L 03/28/18 05:30 MCHC 33.3 g/dl (32.0-35.9) 03/28/18 05:30 RDW 14.9 % (11.9-15.9) 03/28/18 05:30 Plt Count 187 K/MM3 (134-434) D 03/28/18 05:30 MPV 11.5 fl (7.5-11.1) H 03/28/18 05:30 CMP Sodium 140 mmol/L (136-145) 03/28/18 05:30 Potassium 4.4 mmol/L (3.5-5.1) 03/28/18 05:30 Chloride 108 mmol/L (98-107) H 03/28/18 05:30 Carbon Dioxide 25 mmol/L (21-32) 03/28/18 05:30 Anion Gap 8 MMOL/L (8-16) 03/28/18 05:30 BUN 42 mg/dL (7-18) H 03/28/18 05:30 Creatinine 1.3 mg/dL (0.55-1.3) 03/28/18 05:30 Creat Clearance w eGFR 56.12 (>60) 03/28/18 05:30 Random Glucose 233 mg/dL (74-106) H 03/28/18 05:30 Calcium 7.0 mg/dL (8.5-10.1) L 03/28/18 05:30 Total Bilirubin 0.4 mg/dL (0.2-1) 03/28/18 05:30 AST 16 U/L (15-37) 03/28/18 05:30 ALT 15 U/L (13-61) 03/28/18 05:30 Alkaline Phosphatase 73 U/L (45-117) 03/28/18 05:30 Total Protein 5.0 g/dl (6.4-8.2) L 03/28/18 05:30 Albumin 1.4 g/dl (3.4-5.0) L 03/28/18 05:30 CARDIAC ENZYMES Troponin I 0.02 ng/ml (0.00-0.05) 03/26/18 05:13 Assesment and Plan 62 Y/O M with PMHx uncontrolled DM, HTN, HLD P/W SOB for 5 days, found to be in hypoxic respiratory failure and sepsis due to PNA, intubated for hypoxic respiratory failure, newly dxed Afib. 1. Acute Hypoxic respiratory failure- due to multilobar PNA. on medrol daily. Intubated in the ER. currently on 70% FiO2. titrate down as tolerated. treat infection. daily sedation vacations. further management per ICU team 2. sepsis due to Multi-lobar PNA- +legionella. F/u CXR from today. On Levaquin day 4. chest PT. quant pending. HIV negative. ID on board 3. MRSA wound infection- daily dressings on vanco day 4. check vanco trough today prior to dose. Adjust as needed. F/u Cx 4. Afib with RVR- new onset. likely induced from sepsis and hypoxia. now in NSR. off amio, [id number] 2. on Hep ggt. echo reviewed. TSH wnl. can have ischemia workup outpatient vs prior to discharge. cardio on board. 5. Prolonged Qtc- avoid QT prolonging agents. daily EKG 6. DM- uncontrolled. A1c 11.5. will need insulin on discharge. start levemir 10 units HS. diabetic teaching when able. cont to titrate meds as tolerated. ISS and BGM 7. SONIDO- due to hypoperfusion. now improved. avoid nephrotoxic agents 8. DVT ppx- hep ggt 9. Full code. MICU monitoring Visit type - Emergency Visit Emergency Visit: Yes ED Registration Date: 03/25/18 Care time: The patient presented to the Emergency Department on the above date and was hospitalized for further evaluation of their emergent condition. - New Patient This patient is new to me today: Yes Date on this admission: 03/28/18 - Critical Care Critical Care patient: Yes Total Critical Care Time (in minutes): 45 Critical Care Statement: The care of this patient involved high complexity decision making to prevent further life threatening deterioration of the patient 's condition and/or to evaluate & treat vital organ system(s) failure or risk of failure. - Discharge Referral Referred to [facility] No
[2018-03-28] MEDS: AMINO ACIDS/PROTEIN HYDROLYS 30 ML LIQUID.PKT PO SCH ×2 (08:30→18:07)
[2018-03-28] MEDS: PROPOFOL 1,000,000 MCG/100 ML VIAL IVPB SCH (08:38)
[2018-03-28] MEDS: FENTANYL INJECTION 500 MCG in DEXTROSE 5%-WATER - 90 ML IVPB SCH ×2 (08:43→20:35)
--- NOTE | 2018-03-28 09:12 | PN ---
Progress Note, Physician Chief Complaint: resp failure History of Present Illness: intubated/sedated - Current Medication List Current Medications: Active Medications Acetaminophen (Ofirmev Injection -) 1,000 mg IVPB Q6H PRN PRN Reason: FEVER Last Admin: 03/26/18 19:25 Dose: 1,000 mg Albuterol/Ipratropium (Duoneb -) 1 amp NEB Q4H PRN PRN Reason: SHORTNESS OF BREATH Amino Acids (Prosource No Carb Liquid Pkt) 30 ml PO BID@0800,1730 [facility] Last Admin: 03/27/18 17:24 Dose: 30 ml Chlorhexidine Gluconate (Hibiclens For Decolonization -) 1 applic TP HS [facility] Last Admin: 03/27/18 21:27 Dose: 1 applic Chlorhexidine Gluconate (Peridex -) 15 ml MM BID [facility] Heparin Sodium (Porcine) (Heparin -) 1,000 unit IVPUSH PRN PRN PRN Reason: Heparin Heparin Sodium (Porcine) (Heparin -) 5,000 unit IVPUSH PRN PRN PRN Reason: Heparin Heparin Sodium (Porcine) 25, (000 unit/ Sodium Chloride) 500 mls @ 20 mls/hr IV TITR [facility]; Protocol Last Admin: 03/27/18 23:00 Dose: 1,200 unit/hr, 24 mls/hr Propofol (Diprivan -) 1,000,000 mcg in 100 mls @ 2.409 mls/hr IVPB TITR [facility]; Protocol Last Admin: 03/28/18 08:38 Dose: 45 mcg/kg/min, 21.677 mls/hr Fentanyl 500 mcg/ Dextrose 100 mls @ 5 mls/hr IVPB TITR [facility]; Protocol Last Admin: 03/28/18 08:43 Dose: Not Given Levofloxacin (Levaquin 750 Mg Premixed Ivpb -) 750 mg in 150 mls @ 150 mls/hr IVPB DAILY [facility]; Protocol Last Admin: 03/27/18 09:20 Dose: 150 mls/hr Vancomycin HCl 1,250 mg/ (Dextrose) 250 mls @ 166.667 mls/hr IVPB Q12H [facility]; Protocol Last Admin: 03/28/18 04:03 Dose: 166.667 mls/hr Lactated Ringer's (Lactated Ringers Solution) 1,000 ml in 1,000 mls @ 100 mls/ hr IV ASDIR [facility] Last Admin: 03/27/18 12:03 Dose: 100 mls/hr Insulin Aspart (Novolog Vial Sliding Scale -) 1 vial SQ Q6HPO [facility]; Protocol Last Admin: 03/28/18 08:42 Dose: 4 units Insulin Detemir (Levemir Vial) 10 units SQ HS [facility] Methylprednisolone Sodium Succinate (Solu-Medrol -) 40 mg IVPUSH DAILY [facility] Stop: 03/31/18 23:59 Last Admin: 03/27/18 09:22 Dose: 40 mg Metoprolol Tartrate (Lopressor Injection -) 2.5 mg IVPUSH Q6H PRN PRN Reason: HYPERTENSION Mupirocin (Bactroban Ointment (For Decolonization) -) 1 applic NS BID [facility] Stop: 03/31/18 22:01 Last Admin: 03/27/18 21:26 Dose: 1 applic Pantoprazole Sodium (Protonix Iv) 40 mg IVPUSH BID [facility] Last Admin: 03/27/18 21:28 Dose: 40 mg - Objective Vital Signs: Vital Signs Temperature 97.7 F 03/28/18 07:45 Pulse Rate 62 03/28/18 07:45 Respiratory Rate 20 03/28/18 07:45 Blood Pressure 107/67 03/28/18 07:45 O2 Sat by Pulse Oximetry (%) 99 03/28/18 07:45 Constitutional: Yes: Well Nourished, No Distress, Calm Cardiovascular: Yes: Regular Rate and Rhythm, S1, S2. No: JVD (tds exam), Gallop, Murmur Respiratory: Yes: Regular, CTA Bilaterally (anteriorly). No: Accessory Muscle Use, Wheezes Extremities: No: Cold Edema: No Neurological: No: Alert, Oriented Psychiatric: No: Agitated Labs: CBC, BMP 03/28/18 05:30 03/28/18 05:30 INR, PTT INR 1.51 (0.83-1.09) H 03/26/18 05:13 Assessment/Plan ct chest: b/l pna ecg: afib vr 154, no ischemic changes, nl qtc echo 03/18: nl LVSF. nl RV. nl LA. mild MR/TR. RVSP 30-40 tele: NSR, APCs a/p: 62 m hx dm, hld, htn here with fever, leg wound. sepsis, PNA, acute resp failure: -has sahu abscess as well as b/l pna -cont abx per ID/crit care -vent management per ICU team -no signs chf or acs -no pressor requirement at persent afib, rvr: -unknown if new onset -in er started on dilt gtt and amio gtt-->sinus. -dc'd diltiazem given sepsis with soft BPs. -amio now off -remains in sinus--defer amio, AVN blockers while monitor tele -chadsvasc 2 warrants ac, cont hep gtt for now anemia: -hgb down 14 to 10, stable x few days -on UFH gtt -observe trend, watch for melena SONIDO: -bun/creat up 03/27, ? intravasc vol depletion in setting of DKA -agree with IVF as ordered dm: -on insulin gtt for dka -per crit care htn: -bp soft here -hold home htn meds for now given sepsis, risk for severe hypotension est time spent in pt exam, data review, and formulating mgmt plan of potentially life threatening medical problems = 35 min
[2018-03-28] MEDS: MUPIROCIN 2% TOPICAL OINTMENT FOR DECOLONIZATION NS SCH ×2 (09:50→21:53)
[2018-03-28] MEDS: CHLORHEXIDINE GLUCONATE 0.12% 15ML CUP MM SCH ×2 (09:51→21:53)
[2018-03-28] MEDS: PANTOPRAZOLE SODIUM 40 MG VIAL IVPUSH SCH ×2 (09:52→21:53)
[2018-03-28] MEDS: methylPREDNISolone NA SUCC 40 MG/1 ML VIAL IVPUSH SCH (09:52)
--- NOTE | 2018-03-28 10:28 | PN ---
Progress Note, Physician History of Present Illness: Sedated on ventilator No acute distress Temps down afebrile WBC remains elevated on steroids FiO2 decreased to 50% - Current Medication List Current Medications: Active Medications Acetaminophen (Ofirmev Injection -) 1,000 mg IVPB Q6H PRN PRN Reason: FEVER Last Admin: 03/26/18 19:25 Dose: 1,000 mg Albuterol/Ipratropium (Duoneb -) 1 amp NEB Q4H PRN PRN Reason: SHORTNESS OF BREATH Amino Acids (Prosource No Carb Liquid Pkt) 30 ml PO BID@0800,1730 [facility] Last Admin: 03/28/18 08:30 Dose: 30 ml Chlorhexidine Gluconate (Hibiclens For Decolonization -) 1 applic TP HS [facility] Last Admin: 03/27/18 21:27 Dose: 1 applic Chlorhexidine Gluconate (Peridex -) 15 ml MM BID [facility] Last Admin: 03/28/18 09:51 Dose: 15 ml Heparin Sodium (Porcine) (Heparin -) 1,000 unit IVPUSH PRN PRN PRN Reason: Heparin Heparin Sodium (Porcine) (Heparin -) 5,000 unit IVPUSH PRN PRN PRN Reason: Heparin Heparin Sodium (Porcine) 25, (000 unit/ Sodium Chloride) 500 mls @ 20 mls/hr IV TITR [facility]; Protocol Last Admin: 03/27/18 23:00 Dose: 1,200 unit/hr, 24 mls/hr Propofol (Diprivan -) 1,000,000 mcg in 100 mls @ 2.409 mls/hr IVPB TITR [facility]; Protocol Last Admin: 03/28/18 08:38 Dose: 45 mcg/kg/min, 21.677 mls/hr Fentanyl 500 mcg/ Dextrose 100 mls @ 5 mls/hr IVPB TITR [facility]; Protocol Last Admin: 03/28/18 08:43 Dose: Not Given Levofloxacin (Levaquin 750 Mg Premixed Ivpb -) 750 mg in 150 mls @ 150 mls/hr IVPB DAILY [facility]; Protocol Last Admin: 03/28/18 09:44 Dose: 150 mls/hr Vancomycin HCl 1,250 mg/ (Dextrose) 250 mls @ 166.667 mls/hr IVPB Q12H [facility]; Protocol Last Admin: 03/28/18 04:03 Dose: 166.667 mls/hr Lactated Ringer's (Lactated Ringers Solution) 1,000 ml in 1,000 mls @ 100 mls/ hr IV ASDIR [facility] Last Admin: 03/27/18 12:03 Dose: 100 mls/hr Insulin Aspart (Novolog Vial Sliding Scale -) 1 vial SQ Q6HPO [facility]; Protocol Last Admin: 03/28/18 08:42 Dose: 4 units Insulin Detemir (Levemir Vial) 10 units SQ [facility] Methylprednisolone Sodium Succinate (Solu-Medrol -) 40 mg IVPUSH DAILY [facility] Stop: 03/31/18 23:59 Last Admin: 03/28/18 09:52 Dose: 40 mg Metoprolol Tartrate (Lopressor Injection -) 2.5 mg IVPUSH Q6H PRN PRN Reason: HYPERTENSION Mupirocin (Bactroban Ointment (For Decolonization) -) 1 applic NS BID [facility] Stop: 03/31/18 22:01 Last Admin: 03/28/18 09:50 Dose: 1 applic Pantoprazole Sodium (Protonix Iv) 40 mg IVPUSH BID [facility] Last Admin: 03/28/18 09:52 Dose: 40 mg - Objective Vital Signs: Vital Signs Temperature 97.7 F 03/28/18 07:45 Pulse Rate 62 03/28/18 09:00 Respiratory Rate 18 03/28/18 09:00 Blood Pressure 105/69 03/28/18 09:00 O2 Sat by Pulse Oximetry (%) 99 03/28/18 07:45 Constitutional: Yes: No Distress Cardiovascular: Yes: Regular Rate and Rhythm, S1, S2 Respiratory: Yes: Mechanically Ventilated Gastrointestinal: Yes: Normal Bowel Sounds, Soft. No: Tenderness Edema: Yes Integumentary: Yes: Other (No wound drainage, R thigh) Labs: CBC, BMP 03/28/18 05:30 03/28/18 05:30 INR, PTT INR 1.51 (0.83-1.09) H 03/26/18 05:13 Assessment/Plan Multilobar legionella pneumonia Respiratory failure Sepsis secondary to lung source Leukocytosis lactic acidosis + Wound c/s MRSA Continue levaquin/ vancomycin Check vano level Ventilatory support Contact precautions for + wound c/s MRSA
--- NOTE | 2018-03-28 11:10 | PN ---
Teaching Attending Note Name of Resident: Ben Tejeda ATTENDING PHYSICIAN STATEMENT I saw and evaluated the patient. I reviewed the resident's note and discussed the case with the resident. I agree with the resident's findings and plan as documented. SUBJECTIVE: Pt seen and examined in the ICU. Remains intubated, sedated. No pressors. Vented on volume assist control with 70% Fio2, PEEP 8. OBJECTIVE: Vital Signs Period Temp Pulse Resp BP Sys/Santacruz Pulse Ox Last 24 Hr 97.5 F-97.7 F 61-67 16-22 96-107/64-71 95-99 Intake & Output 03/25/18 03/26/18 03/27/18 03/28/18 23:59 23:59 23:59 23:59 Intake Total 2026.4 3224 1540 Output Total 955 1900 250 Balance 1071.4 1324 1290 Weight 80.286 kg 83.4 kg 83.007 kg 85 kg Gen: intubated, sedated Heart: RRR Lung: decreased breath sounds at the bases Abd: soft, nontender Ext: no edema CBC, BMP 03/28/18 05:30 03/28/18 05:30 Active Medications Acetaminophen (Ofirmev Injection -) 1,000 mg IVPB Q6H PRN PRN Reason: FEVER Last Admin: 03/26/18 19:25 Dose: 1,000 mg Albuterol/Ipratropium (Duoneb -) 1 amp NEB Q4H PRN PRN Reason: SHORTNESS OF BREATH Amino Acids (Prosource No Carb Liquid Pkt) 30 ml PO BID@0800,1730 [facility] Last Admin: 03/28/18 08:30 Dose: 30 ml Chlorhexidine Gluconate (Hibiclens For Decolonization -) 1 applic TP HS [facility] Last Admin: 03/27/18 21:27 Dose: 1 applic Chlorhexidine Gluconate (Peridex -) 15 ml MM BID [facility] Last Admin: 03/28/18 09:51 Dose: 15 ml Heparin Sodium (Porcine) (Heparin -) 1,000 unit IVPUSH PRN PRN PRN Reason: Heparin Heparin Sodium (Porcine) (Heparin -) 5,000 unit IVPUSH PRN PRN PRN Reason: Heparin Heparin Sodium (Porcine) 25, (000 unit/ Sodium Chloride) 500 mls @ 20 mls/hr IV TITR [facility]; Protocol Last Admin: 03/27/18 23:00 Dose: 1,200 unit/hr, 24 mls/hr Propofol (Diprivan -) 1,000,000 mcg in 100 mls @ 2.409 mls/hr IVPB TITR [facility]; Protocol Last Admin: 03/28/18 08:38 Dose: 45 mcg/kg/min, 21.677 mls/hr Fentanyl 500 mcg/ Dextrose 100 mls @ 5 mls/hr IVPB TITR [facility]; Protocol Last Admin: 03/28/18 08:43 Dose: Not Given Levofloxacin (Levaquin 750 Mg Premixed Ivpb -) 750 mg in 150 mls @ 150 mls/hr IVPB DAILY [facility]; Protocol Last Admin: 03/28/18 09:44 Dose: 150 mls/hr Vancomycin HCl 1,250 mg/ (Dextrose) 250 mls @ 166.667 mls/hr IVPB Q12H [facility]; Protocol Last Admin: 03/28/18 04:03 Dose: 166.667 mls/hr Lactated Ringer's (Lactated Ringers Solution) 1,000 ml in 1,000 mls @ 100 mls/ hr IV ASDIR [facility] Last Admin: 03/27/18 12:03 Dose: 100 mls/hr Insulin Aspart (Novolog Vial Sliding Scale -) 1 vial SQ Q6HPO [facility]; Protocol Last Admin: 03/28/18 08:42 Dose: 4 units Insulin Detemir (Levemir Vial) 10 units SQ HS [facility] Methylprednisolone Sodium Succinate (Solu-Medrol -) 40 mg IVPUSH DAILY [facility] Stop: 03/31/18 23:59 Last Admin: 03/28/18 09:52 Dose: 40 mg Metoprolol Tartrate (Lopressor Injection -) 2.5 mg IVPUSH Q6H PRN PRN Reason: HYPERTENSION Mupirocin (Bactroban Ointment (For Decolonization) -) 1 applic NS BID [facility] Stop: 03/31/18 22:01 Last Admin: 03/28/18 09:50 Dose: 1 applic Pantoprazole Sodium (Protonix Iv) 40 mg IVPUSH BID [facility] Last Admin: 03/28/18 09:52 Dose: 40 mg ASSESSMENT AND PLAN: Acute Hypoxic Respiratory Failure Legionella Pneumonia Severe Sepsis Acute Kidney Injury Lactic Acidosis ARDS Atrial Fibrillation with RVR HTN DM - continue antibiotics - monitor QTc - rate control - continue anticoagulation - d/c IVF if tolerating feeds - monitor urine output, creatinine - low tidal volume ventilation 6cc/kg/IBW - keep Pplat <30 - taper FiO2 to keep SpO2 >90% - keep PEEP - inhaled bronchodilators - enteral feeds - hold sedation in AM to assess mental status - spontaneous breathing trials as tolerated once mental status improved - DVT/GI prophylaxis critical care time spent in reviewing chart, evaluating patient and formulating plan 35 min
[2018-03-28] MEDS ORDERED: METOPROLOL TARTRATE 25 MG TABLET (FP) PO SCH (11:45)
[2018-03-28 12:14] LABS: ARTERIAL BLD GAS O2 SATURATION 90.4 % (90-98.9); ARTERIAL BLOOD GAS BASE EXCESS -2.3 meq/l (-2-2); ARTERIAL BLOOD GAS PCO2 45.9 mmHg (35-45); ARTERIAL BLOOD GAS PO2 66.4 mmHg (80-100); ARTERIAL BLOOD GAS pH 7.33 (7.35-7.45)
[2018-03-28 12:16] LABS: ALLENS TEST POSITIVE
[2018-03-28] MEDS: METOPROLOL TARTRATE 25 MG TABLET (FP) PO SCH ×2 (12:32→21:53)
[2018-03-28] MEDS: LACTATED RINGERS SOLUTION 1,000 ML/1,000 ML INFUS.BAG IV SCH (12:37)
--- NOTE | 2018-03-28 13:32 | PN ---
Physical Exam: SUBJECTIVE: Patient seen and examined at bedside. Patient remains intubated and sedated. Patient is not on pressers at the moment. No overnight events per nurse. Vented on volume AC with 60% FiO2. OBJECTIVE: Vital Signs Period Temp Pulse Resp BP Sys/Santacruz Pulse Ox Last 24 Hr 97.5 F-97.7 F 61-67 16-21 99-107/64-71 95-99 GENERAL: Intubated and sedated, not alert or oriented HEAD: Normal with no signs of trauma EYES: PERRL LUNGS: mechanical breath sounds b/l, very rhonchorous, unchanged from previous exam HEART: RRR, S1 S2 ABDOMEN: BS present, soft, NTND Extremities: no peripheral edema noted SKIN: Warm, dry, normal turgor, no rashes or lesions noted Laboratory Results - last 24 hr 03/26/18 03/27/18 03/27/18 22:49 14:15 17:36 WBC RBC Hgb Hct MCV MCH MCHC RDW Plt Count MPV PTT (Actin FS) Anticoagulation Therapy Puncture Site ABG pH ABG pCO2 at Pt Temp ABG pO2 at Pt Temp ABG HCO3 ABG O2 Sat (Measured) ABG O2 Content ABG Base Excess Petey Test O2 Delivery Device Oxygen Flow Rate Vent Mode Vent Rate Mechanical Rate PEEP Pressure Support Vent Sodium Potassium Chloride Carbon Dioxide Anion Gap BUN Creatinine Creat Clearance w eGFR POC Glucometer > [phone] 301.79365 Random Glucose Calcium Phosphorus Magnesium Total Bilirubin AST ALT Alkaline Phosphatase Total Protein Albumin 03/27/18 03/28/18 03/28/18 21:20 02:43 05:19 WBC RBC Hgb Hct MCV MCH MCHC RDW Plt Count MPV PTT (Actin FS) Anticoagulation Therapy Puncture Site ABG pH ABG pCO2 at Pt Temp ABG pO2 at Pt Temp ABG HCO3 ABG O2 Sat (Measured) ABG O2 Content ABG Base Excess Petey Test O2 Delivery Device Oxygen Flow Rate Vent Mode Vent Rate Mechanical Rate PEEP Pressure Support Vent Sodium Potassium Chloride Carbon Dioxide Anion Gap BUN Creatinine Creat Clearance w eGFR POC Glucometer 333.69076 291.85103 253.68625 Random Glucose Calcium Phosphorus Magnesium Total Bilirubin AST ALT Alkaline Phosphatase Total Protein Albumin 03/28/18 03/28/18 03/28/18 05:30 05:30 05:30 WBC 20.0 H RBC 3.95 L Hgb 10.3 L Hct 30.9 L MCV 78.3 L MCH 26.1 MCHC 33.3 RDW 14.9 Plt Count 187 D MPV 11.5 H PTT (Actin FS) 57.3 H Anticoagulation Therapy Puncture Site ABG pH ABG pCO2 at Pt Temp ABG pO2 at Pt Temp ABG HCO3 ABG O2 Sat (Measured) ABG O2 Content ABG Base Excess Petey Test O2 Delivery Device Oxygen Flow Rate Vent Mode Vent Rate Mechanical Rate PEEP Pressure Support Vent Sodium 140 Potassium 4.4 Chloride 108 H Carbon Dioxide 25 Anion Gap 8 BUN 42 H Creatinine 1.3 Creat Clearance w eGFR 56.12 POC Glucometer Random Glucose 233 H Calcium 7.0 L Phosphorus 3.7 Magnesium 3.5 H Total Bilirubin 0.4 AST 16 ALT 15 Alkaline Phosphatase 73 Total Protein 5.0 L Albumin 1.4 L 03/28/18 03/28/18 03/28/18 06:00 08:41 11:32 WBC RBC Hgb Hct MCV MCH MCHC RDW Plt Count MPV PTT (Actin FS) Anticoagulation Therapy No Result Required. Puncture Site Right radial ABG pH 7.29 L ABG pCO2 at Pt Temp 49.5 H ABG pO2 at Pt Temp 48.2 L* D ABG HCO3 23.3 ABG O2 Sat (Measured) 77.8 L ABG O2 Content 9.5 L* ABG Base Excess -2.7 L Petey Test Positive O2 Delivery Device Vent Oxygen Flow Rate 70% Vent Mode No Result Required. Vent Rate No Result Required. Mechanical Rate No Result Required. PEEP 8.0 Pressure Support Vent 400 Sodium Potassium Chloride Carbon Dioxide Anion Gap BUN Creatinine Creat Clearance w eGFR POC Glucometer 213.25222 215.22458 Random Glucose Calcium Phosphorus Magnesium Total Bilirubin AST ALT Alkaline Phosphatase Total Protein Albumin 03/28/18 12:10 WBC RBC Hgb Hct MCV MCH MCHC RDW Plt Count MPV PTT (Actin FS) Anticoagulation Therapy Puncture Site Right radial ABG pH 7.33 L ABG pCO2 at Pt Temp 45.9 H ABG pO2 at Pt Temp 66.4 L D ABG HCO3 23.3 ABG O2 Sat (Measured) 90.4 ABG O2 Content 13.7 L ABG Base Excess -2.3 L Petey Test Positive O2 Delivery Device Oxygen Flow Rate Yes Vent Mode Vent Rate Mechanical Rate PEEP Pressure Support Vent Sodium Potassium Chloride Carbon Dioxide Anion Gap BUN Creatinine Creat Clearance w eGFR POC Glucometer Random Glucose Calcium Phosphorus Magnesium Total Bilirubin AST ALT Alkaline Phosphatase Total Protein Albumin Active Medications Generic Name Dose Route Start Last Admin Trade Name [place]o PRN Reason Stop Dose Admin Acetaminophen 1,000 mg 03/26/18 19:02 03/26/18 19:25 Ofirmev Injection - IVPB 1,000 mg Q6H PRN Administration FEVER Albuterol/Ipratropium 1 amp 03/26/18 05:47 Duoneb - NEB Q4H PRN SHORTNESS OF BREATH Amino Acids 30 ml 03/27/18 17:30 03/28/18 08:30 Prosource No Carb Liquid Pkt PO 30 ml BID@0800,1730 [facility] Administration Chlorhexidine Gluconate 1 applic 03/26/18 22:00 03/27/18 21:27 Hibiclens For Decolonization - TP 1 applic HS [facility] Administration Chlorhexidine Gluconate 15 ml 03/28/18 10:00 03/28/18 09:51 Peridex - MM 15 ml BID [facility] Administration Heparin Sodium (Porcine) 1,000 unit 03/25/18 22:34 Heparin - IVPUSH PRN PRN Heparin Heparin Sodium (Porcine) 5,000 unit 03/25/18 22:34 Heparin - IVPUSH PRN PRN Heparin Heparin Sodium (Porcine) 25, 500 mls @ 20 mls/hr 03/25/18 22:45 03/27/18 23: 00 000 unit/ Sodium Chloride IV 1,200 unit/hr TITR [facility] 24 mls/hr Administration Protocol 1,000 UNIT/HR Propofol 1,000,000 mcg in 100 mls @ 2.409 mls/hr 03/26/18 07:45 03/28/18 08: 38 Diprivan - IVPB 45 mcg/kg/min TITR [facility] 21.677 mls/hr Administration Protocol 5 MCG/KG/MIN Fentanyl 500 mcg/ Dextrose 100 mls @ 5 mls/hr 03/26/18 07:45 03/28/18 08:43 IVPB Not Given TITR [facility] Protocol 25 MCG/HR Levofloxacin 750 mg in 150 mls @ 150 mls/hr 03/26/18 16:30 03/28/18 09:44 Levaquin 750 Mg Premixed Ivpb - IVPB 150 mls/hr DAILY [facility] Administration Protocol Vancomycin HCl 1,250 mg/ 250 mls @ 166.667 mls/hr 03/26/18 16:30 03/28/18 04: 03 Dextrose IVPB 166.667 mls/hr Q12H [facility] Administration Protocol Lactated Ringer's 1,000 ml in 1,000 mls @ 100 mls/hr 03/27/18 10:05 03/28/18 12:37 Lactated Ringers Solution IV 100 mls/hr [facility] Administration Insulin Aspart 1 vial 03/28/18 08:30 03/28/18 11:47 Novolog Vial Sliding Scale - SQ Not Given Q6HPO [facility] Protocol Insulin Detemir 10 units 03/28/18 22:00 Levemir Vial SQ HS [facility] Methylprednisolone Sodium Succinate 40 mg 03/26/18 13:59 03/28/18 09:52 Solu-Medrol - IVPUSH 03/31/18 23:59 40 mg DAILY [facility] Administration Metoprolol Tartrate 12.5 mg 03/28/18 12:15 03/28/18 12:32 Lopressor - PO 12.5 mg BID [facility] Administration Mupirocin 1 applic 03/26/18 22:00 03/28/18 09:50 Bactroban Ointment (For Decolonization) - NS 03/31/18 22:01 1 applic BID [facility] Administration Pantoprazole Sodium 40 mg 03/26/18 12:00 03/28/18 09:52 Protonix Iv IVPUSH 40 mg BID [facility] Administration ASSESSMENT/PLAN: Patient is a 62 year old male who presented for shortness of breath, fever, chills, malaise and was found to have complete left lung white out on CXR, new onset atrial fibrillation, and DKA. Patient admitted to ICU for further monitoring and management. Found w/ presum pos legionella antigen Patient became tachy and then Faraz. We are putting him back on metoprolol for HR maintenance. Patient is being treated for legionella. His ABG today showed pO3 of 66 at 50% FiO2. ==> increased the FiO2 to 60%. Will get repeat ABG. NEURO: -intubated and sedated PULMONARY #Acute Hypoxic Respiratory failure -Likely secondary to Post obstructive Pneumonia from total white out and mass in the left lung. -CT showing consolidation of entire L lung and post R lung c/w PNA -legionella antigen presumptive positive, f/u serum legionella -continue vancomycin and levaquin, per ID - monitor QTc, amio was dcd -Maintain Sp02 >95% -daily ABG -taper FiO2 to keep SpO2 >90% INFECTIOUS DISEASE #Sepsis Secondary to Bilateral Pneumonia -legionella antigen presumptive positive, check serum legionella -continue vancomycin and levaquin -Blood cultures neg -Sputum cultures neg -ID consult CARDIOLOGY #Atrial Fibrillation w/ RVR -c/w Heparin drip for AC -start metop 25 bid PO, maintain HR <110 -ECHO RV ystolic 30-40, nl LVSF, nl EF -Cardiology consult #HTN Monitor CVP 8-12 HEMATOLOGY - Hb dropping. Recent values: 14, 11, 10.6, 10.3. - Continue to Trend. Will transfuse if less than 7 #Elevated INR -possible malignancy -Patient denies taking Coumadin, or any blood thinners. Denies alcohol use. -Continue to monitor F/E/N -IV LR @83mls/hr -replete prn -start enteral feeds Prophylaxis -Heparin drip for DVT -protonix bid Disposition -Full code -ICU monitoring Visit type - Emergency Visit Emergency Visit: Yes ED Registration Date: 03/25/18 Care time: The patient presented to the Emergency Department on the above date and was hospitalized for further evaluation of their emergent condition. - New Patient This patient is new to me today: Yes Date on this admission: 03/28/18 - Critical Care Critical Care patient: Yes Total Critical Care Time (in minutes): 36 Critical Care Statement: The care of this patient involved high complexity decision making to prevent further life threatening deterioration of the patient 's condition and/or to evaluate & treat vital organ system(s) failure or risk of failure.
--- NOTE | 2018-03-28 13:55 | EKG ---
Test Reason : Blood Pressure : / mmHG Vent. Rate : 064 BPM Atrial Rate : 064 BPM P-R Int : 132 ms QRS Dur : 084 ms QT Int : 448 ms P-R-T Axes : 034 040 047 degrees QTc Int : 462 ms SINUS RHYTHM WITH PREMATURE ATRIAL COMPLEXES NONSPECIFIC T WAVE ABNORMALITY PROLONGED QT ABNORMAL ECG Confirmed by MD Cheyanne, Bill ([id number] on 03/28/2018 1:54:37 PM Referred By: Samuel JOHNSON Confirmed By:Bill Edward MD
[2018-03-28] MEDS ORDERED: PT OWN MED DRAWER 7, Y5N ONE (16:00)
[2018-03-28] MEDS: HEPARIN - 25,000 UNIT in SODIUM CHLORIDE 495 ML IV SCH (16:18)
[2018-03-28] MEDS: INSULIN (LEVEMIR) 100 UNITS/ML UNITS SQ SCH (21:53)
[2018-03-28] MEDS: CHLORHEXIDINE GLUCONATE 4% CLEANSER FOR DECOLONIZATION TP SCH (21:53)
[2018-03-28 22:47] LABS: ARTERIAL BLD GAS O2 SATURATION 93.1 % (90-98.9); ARTERIAL BLOOD GAS BASE EXCESS -2.1 meq/l (-2-2); ARTERIAL BLOOD GAS PO2 75.1 mmHg (80-100); ARTERIAL BLOOD GAS pH 7.34 (7.35-7.45)
[2018-03-28 22:48] LABS: ALLENS TEST POSITIVE
[2018-03-29] MEDS: INSULIN SLIDING SCALE (NOVOLOG) 1 VIAL SQ SCH ×5 (00:50→23:47)
[2018-03-29] MEDS: HEPARIN - 25,000 UNIT in SODIUM CHLORIDE 495 ML IV SCH (01:13)
[2018-03-29] MEDS ORDERED: fentaNYL CITRATE 250 MCG/5 ML VIAL ONE ×3 (01:48→17:34)
[2018-03-29] MEDS ORDERED: PROPOFOL 1,000,000 MCG/100 ML VIAL ONE (01:48)
[2018-03-29] MEDS: VANCOMYCIN 1,250 MG in DEXTROSE 5%-WATER - 250 ML IVPB SCH ×2 (05:08→16:23)
[2018-03-29 06:03] LABS: BASO % 0.1 % (0-2.0); EOS % 2.4 % (0-4.5); HEMATOCRIT 31.4 % (35.4-49); HEMOGLOBIN 10.3 GM/dL (11.7-16.9); LYMPH % 6.4 % (8-40); MCH 25.7 pg (25.7-33.7); MCHC 32.9 g/dl (32.0-35.9); MEAN CELL VOLUME 78.2 fl (80-96); MONO % 8.1 % (3.8-10.2); PLATELET COUNT 243 K/MM3 (134-434); RBC 4.01 M/mm3 (4.00-5.60); RDW 14.7 % (11.9-15.9); WHITE BLOOD COUNT 19.6 K/mm3 (4.0-10.0)
[2018-03-29 06:20] LABS: ALBUMIN 1.4 g/dl (3.4-5.0); ALK PHOS 76 U/L (45-117); ANION GAP 9 MMOL/L (8-16); BILIRUBIN,TOTAL 0.4 mg/dL (0.2-1); BLOOD UREA NITROGEN 42 mg/dL (7-18); CALCIUM 7.1 mg/dL (8.5-10.1); CHLORIDE 110 mmol/L (98-107); CO2 24 mmol/L (21-32); CREATININE 1.1 mg/dL (0.55-1.3); GLUCOSE,RANDOM 285 mg/dL (74-106); MAGNESIUM 3.1 mg/dL (1.8-2.4); PHOSPHOROUS 2.7 mg/dL (2.5-4.9); POTASSIUM 4.3 mmol/L (3.5-5.1); SGOT/AST 18 U/L (15-37); SGPT/ALT 15 U/L (13-61); SODIUM 143 mmol/L (136-145); TOT PROT 4.9 g/dl (6.4-8.2)
[2018-03-29 06:41] LABS: ARTERIAL BLD GAS O2 SATURATION 94.7 % (90-98.9); ARTERIAL BLOOD GAS BASE EXCESS -1.1 meq/l (-2-2); ARTERIAL BLOOD GAS PCO2 42.4 mmHg (35-45); ARTERIAL BLOOD GAS PO2 84.8 mmHg (80-100); ARTERIAL BLOOD GAS pH 7.37 (7.35-7.45)
[2018-03-29 06:57] LABS: ALLENS TEST POSITIVE
[2018-03-29] MEDS: PROPOFOL 1,000,000 MCG/100 ML VIAL IVPB SCH (08:00)
[2018-03-29] MEDS: AMINO ACIDS/PROTEIN HYDROLYS 30 ML LIQUID.PKT PO SCH ×2 (09:00→18:25)
[2018-03-29] MEDS: PANTOPRAZOLE SODIUM 40 MG VIAL IVPUSH SCH ×2 (09:18→21:09)
[2018-03-29] MEDS: methylPREDNISolone NA SUCC 40 MG/1 ML VIAL IVPUSH SCH (09:19)
[2018-03-29] MEDS: METOPROLOL TARTRATE 25 MG TABLET (FP) PO SCH ×3 (09:20→23:10)
[2018-03-29] MEDS: CHLORHEXIDINE GLUCONATE 0.12% 15ML CUP MM SCH ×2 (09:20→21:09)
[2018-03-29] MEDS: FENTANYL INJECTION 500 MCG in DEXTROSE 5%-WATER - 90 ML IVPB SCH (09:21)
[2018-03-29] MEDS: MUPIROCIN 2% TOPICAL OINTMENT FOR DECOLONIZATION NS SCH ×2 (09:21→21:07)
--- NOTE | 2018-03-29 10:50 | PN ---
Progress Note, Physician Chief Complaint: resp failure History of Present Illness: intubated/sedated - Current Medication List Current Medications: Active Medications Acetaminophen (Ofirmev Injection -) 1,000 mg IVPB Q6H PRN PRN Reason: FEVER Last Admin: 03/26/18 19:25 Dose: 1,000 mg Albuterol/Ipratropium (Duoneb -) 1 amp NEB Q4H PRN PRN Reason: SHORTNESS OF BREATH Amino Acids (Prosource No Carb Liquid Pkt) 30 ml PO BID@0800,1730 [facility] Last Admin: 03/29/18 09:00 Dose: 30 ml Chlorhexidine Gluconate (Hibiclens For Decolonization -) 1 applic TP HS [facility] Last Admin: 03/28/18 21:53 Dose: 1 applic Chlorhexidine Gluconate (Peridex -) 15 ml MM BID [facility] Last Admin: 03/29/18 09:20 Dose: 15 ml Heparin Sodium (Porcine) (Heparin -) 1,000 unit IVPUSH PRN PRN PRN Reason: Heparin Heparin Sodium (Porcine) (Heparin -) 5,000 unit IVPUSH PRN PRN PRN Reason: Heparin Heparin Sodium (Porcine) 25, (000 unit/ Sodium Chloride) 500 mls @ 20 mls/hr IV TITR [facility]; Protocol Last Admin: 03/29/18 01:13 Dose: Not Given Propofol (Diprivan -) 1,000,000 mcg in 100 mls @ 2.409 mls/hr IVPB TITR [facility]; Protocol Last Admin: 03/29/18 08:00 Dose: 45 mcg/kg/min, 21.677 mls/hr Fentanyl 500 mcg/ Dextrose 100 mls @ 5 mls/hr IVPB TITR [facility]; Protocol Last Admin: 03/29/18 09:21 Dose: 75 mcg/hr, 15 mls/hr Levofloxacin (Levaquin 750 Mg Premixed Ivpb -) 750 mg in 150 mls @ 150 mls/hr IVPB DAILY [facility]; Protocol Last Admin: 03/29/18 09:20 Dose: 150 mls/hr Lactated Ringer's (Lactated Ringers Solution) 1,000 ml in 1,000 mls @ 100 mls/ hr IV ASDIR [facility] Last Admin: 03/28/18 12:37 Dose: 100 mls/hr Vancomycin HCl (Vancomycin (Pre-Docked)) 1,000 mg in 250 mls @ 166.667 mls/hr IVPB Q12H [facility]; Protocol Insulin Aspart (Novolog Vial Sliding Scale -) 1 vial SQ Q6HPO [facility]; Protocol Last Admin: 03/29/18 06:23 Dose: 8 units Insulin Detemir (Levemir Vial) 10 units SQ HS [facility] Last Admin: 03/28/18 21:53 Dose: 10 units Methylprednisolone Sodium Succinate (Solu-Medrol -) 40 mg IVPUSH DAILY [facility] Stop: 03/31/18 23:59 Last Admin: 03/29/18 09:19 Dose: 40 mg Metoprolol Tartrate (Lopressor -) 12.5 mg PO BID [facility] Last Admin: 03/29/18 09:20 Dose: 12.5 mg Mupirocin (Bactroban Ointment (For Decolonization) -) 1 applic NS BID [facility] Stop: 03/31/18 22:01 Last Admin: 03/29/18 09:21 Dose: 1 applic Pantoprazole Sodium (Protonix Iv) 40 mg IVPUSH BID [facility] Last Admin: 03/29/18 09:18 Dose: 40 mg - Objective Vital Signs: Vital Signs Temperature 99.9 F H 03/29/18 08:00 Pulse Rate 66 03/29/18 08:36 Respiratory Rate 20 03/29/18 08:36 Blood Pressure 123/63 03/29/18 08:36 O2 Sat by Pulse Oximetry (%) 98 03/29/18 08:34 Constitutional: Yes: No Distress, Calm Eyes: No: Sclera Icterus HENT: No: Nasal Congestion Cardiovascular: Yes: Regular Rate and Rhythm, S1, S2, Other (PMI non diplaced). No: Gallop, Murmur Respiratory: Yes: CTA Bilaterally (anteriorly). No: Accessory Muscle Use Gastrointestinal: Yes: Normal Bowel Sounds, Soft. No: Tenderness Musculoskeletal: Yes: Other (No kyphosis) Extremities: No: Cold Edema: No Integumentary: No: Jaundice Neurological: No: Alert, Oriented (x3) Psychiatric: No: Agitated Labs: CBC, BMP 03/29/18 05:30 03/29/18 05:30 INR, PTT INR 1.51 (0.83-1.09) H 03/26/18 05:13 Assessment/Plan ct chest: b/l pna ecg: afib vr 154, no ischemic changes, nl qtc echo 03/18: nl LVSF. nl RV. nl LA. mild MR/TR. RVSP 30-40 tele: NSR a/p: 62 m hx dm, hld, htn here with fever, leg wound. sepsis, PNA, acute resp failure: -has sahu abscess as well as b/l pna -cont abx per ID/crit care -vent management per ICU team -no signs chf or acs -no pressor requirement at present, bp trend improved afib, rvr: -unknown if new onset -in er started on dilt gtt and amio gtt-->sinus. -dc'd diltiazem given sepsis with soft BPs. -amio now off -remains in sinus--defer amio, AVN blockers while monitor tele -chadsvasc 2 warrants ac, cont hep gtt for now anemia: -hgb down 14 to 10, stable x few days -on UFH gtt -observe trend, watch for melena SONIDO: -bun/creat up 03/27, ? intravasc vol depletion in setting of DKA -agree with IVF as ordered dm: -on insulin gtt for dka -per crit care htn: -bp soft here initially, home meds held -observe trend
[2018-03-29] MEDS: LACTATED RINGERS SOLUTION 1,000 ML/1,000 ML INFUS.BAG IV SCH (11:00)
[2018-03-29 11:10] LABS: ANISOCYTOSIS 1+; MACROCYTOSIS 0; PLATELET ESTIMATE NORMAL; TEAR DROP CELLS 1+
--- NOTE | 2018-03-29 11:13 | PN ---
Progress Note, Physician History of Present Illness: Sedated on ventilator No acute distress Temps down Low gradew WBC remains elevated on steroids FiO2 60% - Current Medication List Current Medications: Active Medications Acetaminophen (Ofirmev Injection -) 1,000 mg IVPB Q6H PRN PRN Reason: FEVER Last Admin: 03/26/18 19:25 Dose: 1,000 mg Albuterol/Ipratropium (Duoneb -) 1 amp NEB Q4H PRN PRN Reason: SHORTNESS OF BREATH Amino Acids (Prosource No Carb Liquid Pkt) 30 ml PO BID@0800,1730 [facility] Last Admin: 03/29/18 09:00 Dose: 30 ml Chlorhexidine Gluconate (Hibiclens For Decolonization -) 1 applic TP HS [facility] Last Admin: 03/28/18 21:53 Dose: 1 applic Chlorhexidine Gluconate (Peridex -) 15 ml MM BID [facility] Last Admin: 03/29/18 09:20 Dose: 15 ml Heparin Sodium (Porcine) (Heparin -) 1,000 unit IVPUSH PRN PRN PRN Reason: Heparin Heparin Sodium (Porcine) (Heparin -) 5,000 unit IVPUSH PRN PRN PRN Reason: Heparin Heparin Sodium (Porcine) 25, (000 unit/ Sodium Chloride) 500 mls @ 20 mls/hr IV TITR [facility]; Protocol Last Admin: 03/29/18 01:13 Dose: Not Given Propofol (Diprivan -) 1,000,000 mcg in 100 mls @ 2.409 mls/hr IVPB TITR [facility]; Protocol Last Admin: 03/29/18 08:00 Dose: 45 mcg/kg/min, 21.677 mls/hr Fentanyl 500 mcg/ Dextrose 100 mls @ 5 mls/hr IVPB TITR [facility]; Protocol Last Admin: 03/29/18 09:21 Dose: 75 mcg/hr, 15 mls/hr Levofloxacin (Levaquin 750 Mg Premixed Ivpb -) 750 mg in 150 mls @ 150 mls/hr IVPB DAILY [facility]; Protocol Last Admin: 03/29/18 09:20 Dose: 150 mls/hr Lactated Ringer's (Lactated Ringers Solution) 1,000 ml in 1,000 mls @ 100 mls/ hr IV ASDIR [facility] Last Admin: 03/28/18 12:37 Dose: 100 mls/hr Vancomycin HCl (Vancomycin (Pre-Docked)) 1,000 mg in 250 mls @ 166.667 mls/hr IVPB Q12H [facility]; Protocol Insulin Aspart (Novolog Vial Sliding Scale -) 1 vial SQ Q6HPO [facility]; Protocol Last Admin: 03/29/18 06:23 Dose: 8 units Insulin Detemir (Levemir Vial) 10 units SQ HS [facility] Last Admin: 03/28/18 21:53 Dose: 10 units Methylprednisolone Sodium Succinate (Solu-Medrol -) 40 mg IVPUSH DAILY [facility] Stop: 03/31/18 23:59 Last Admin: 03/29/18 09:19 Dose: 40 mg Metoprolol Tartrate (Lopressor -) 12.5 mg PO BID [facility] Last Admin: 03/29/18 09:20 Dose: 12.5 mg Mupirocin (Bactroban Ointment (For Decolonization) -) 1 applic NS BID [facility] Stop: 03/31/18 22:01 Last Admin: 03/29/18 09:21 Dose: 1 applic Pantoprazole Sodium (Protonix Iv) 40 mg IVPUSH BID [facility] Last Admin: 03/29/18 09:18 Dose: 40 mg - Objective Vital Signs: Vital Signs Temperature 99.9 F H 03/29/18 08:00 Pulse Rate 66 03/29/18 08:36 Respiratory Rate 20 03/29/18 08:36 Blood Pressure 123/63 03/29/18 08:36 O2 Sat by Pulse Oximetry (%) 98 03/29/18 08:34 Constitutional: Yes: No Distress Eyes: Yes: Conjunctiva Clear Cardiovascular: Yes: Regular Rate and Rhythm, S1, S2 Respiratory: Yes: Mechanically Ventilated Gastrointestinal: Yes: Normal Bowel Sounds, Soft. No: Tenderness Edema: Yes Labs: CBC, BMP 03/29/18 05:30 03/29/18 05:30 INR, PTT INR 1.51 (0.83-1.09) H 03/26/18 05:13 Assessment/Plan Multilobar legionella pneumonia Respiratory failure Sepsis secondary to lung source Leukocytosis lactic acidosis + Wound c/s MRSA Continue levaquin/ vancomycin Ventilatory support Contact precautions for + wound c/s MRSA
[2018-03-29] MEDS ORDERED: PT OWN MED DRAWER 7, Y5N ONE ×2 (11:32→16:20)
[2018-03-29] MEDS: ACETAMINOPHEN 1000 MG/100 ML VIAL (NON FORMULARY) IVPB PRN (11:59)
--- NOTE | 2018-03-29 13:09 | PN ---
Teaching Attending Note Name of Resident: Alexx Rabago ATTENDING PHYSICIAN STATEMENT I saw and evaluated the patient. I reviewed the resident's note and discussed the case with the resident. I agree with the resident's findings and plan as documented. SUBJECTIVE: Pt seen and examined in the ICU. Remains intubated, sedated. Vented on volume assist control with 60% FiO2, PEEP 8. OBJECTIVE: Vital Signs Period Temp Pulse Resp BP Sys/S[place]ruz Pulse Ox Last 24 Hr 97 F-99.9 F 64-71 18-27 112-147/62-85 98-98 Intake & Output 03/26/18 03/27/18 03/28/18 03/29/18 23:59 23:59 23:59 23:59 Intake Total 2026.4 3224 5021 1645 Output Total 955 1900 1650 600 Balance 1071.4 1324 3371 1045 Weight 83.4 kg 83.007 kg 85 kg 88.496 kg Gen: intubated, sedated Heart: RRR Lung: decreased breath sounds left side Abd: soft, nontender Ext: no edema CBC, BMP 03/29/18 05:30 03/29/18 05:30 Active Medications Acetaminophen (Ofirmev Injection -) 1,000 mg IVPB Q6H PRN PRN Reason: FEVER Last Admin: 03/29/18 11:59 Dose: 1,000 mg Albuterol/Ipratropium (Duoneb -) 1 amp NEB Q4H PRN PRN Reason: SHORTNESS OF BREATH Amino Acids (Prosource No Carb Liquid Pkt) 30 ml PO BID@0800,1730 [facility] Last Admin: 03/29/18 09:00 Dose: 30 ml Chlorhexidine Gluconate (Hibiclens For Decolonization -) 1 applic TP HS [facility] Last Admin: 03/28/18 21:53 Dose: 1 applic Chlorhexidine Gluconate (Peridex -) 15 ml MM BID [facility] Last Admin: 03/29/18 09:20 Dose: 15 ml Enoxaparin Sodium (Lovenox -) 90 mg SQ BID [facility] Propofol (Diprivan -) 1,000,000 mcg in 100 mls @ 2.409 mls/hr IVPB TITR [facility]; Protocol Last Admin: 03/29/18 08:00 Dose: 45 mcg/kg/min, 21.677 mls/hr Fentanyl 500 mcg/ Dextrose 100 mls @ 5 mls/hr IVPB TITR [facility]; Protocol Last Admin: 03/29/18 09:21 Dose: 75 mcg/hr, 15 mls/hr Levofloxacin (Levaquin 750 Mg Premixed Ivpb -) 750 mg in 150 mls @ 150 mls/hr IVPB DAILY [facility]; Protocol Last Admin: 03/29/18 09:20 Dose: 150 mls/hr Vancomycin HCl (Vancomycin (Pre-Docked)) 1,000 mg in 250 mls @ 166.667 mls/hr IVPB Q12H [facility]; Protocol Insulin Aspart (Novolog Vial Sliding Scale -) 1 vial SQ Q6HPO [facility]; Protocol Last Admin: 03/29/18 12:05 Dose: 10 units Insulin Detemir (Levemir Vial) 10 units SQ HS [facility] Last Admin: 03/28/18 21:53 Dose: 10 units Methylprednisolone Sodium Succinate (Solu-Medrol -) 40 mg IVPUSH DAILY [facility] Stop: 03/31/18 23:59 Last Admin: 03/29/18 09:19 Dose: 40 mg Metoprolol Tartrate (Lopressor -) 12.5 mg PO BID [facility] Last Admin: 03/29/18 09:20 Dose: 12.5 mg Mupirocin (Bactroban Ointment (For Decolonization) -) 1 applic NS BID [facility] Stop: 03/31/18 22:01 Last Admin: 03/29/18 09:21 Dose: 1 applic Pantoprazole Sodium (Protonix Iv) 40 mg IVPUSH BID [facility] Last Admin: 03/29/18 09:18 Dose: 40 mg ASSESSMENT AND PLAN: Acute Hypoxic Respiratory Failure Legionella Pneumonia Severe Sepsis Acute Kidney Injury Lactic Acidosis ARDS Atrial Fibrillation with RVR HTN DM - continue antibiotics - monitor QTc - rate control - continue anticoagulation - monitor urine output, creatinine - low tidal volume ventilation 6cc/kg/IBW - keep Pplat <30 - taper FiO2 to keep SpO2 >90% - keep PEEP - inhaled bronchodilators - enteral feeds - hold sedation in AM to assess mental status - spontaneous breathing trials as tolerated once mental status improved - DVT/GI prophylaxis critical care time spent in reviewing chart, evaluating patient and formulating plan 35 min
--- NOTE | 2018-03-29 13:56 | PN ---
Teaching Attending Note Name of Resident: Joe Larkin ATTENDING PHYSICIAN STATEMENT I saw and evaluated the patient. I reviewed the resident's note and discussed the case with the resident. I agree with the resident's findings and plan as documented. SUBJECTIVE:intubated/sedated OBJECTIVE: Last Vital Signs Temp Pulse Resp BP Pulse Ox 99.9 F H 68 20 147/85 98 03/29/18 08:00 03/29/18 11:43 03/29/18 11:43 03/29/18 11:43 03/29/18 08:34 Intake & Output 03/26/18 03/27/18 03/28/18 03/29/18 23:59 23:59 23:59 23:59 Intake Total 2026.4 3224 5021 1645 Output Total 955 1900 1650 1300 Balance 1071.4 1324 3371 345 Weight 183 lb 13.848 oz 183 lb 187 lb 6.287 oz 195 lb 1.6 oz General sedated CV S1 S2 RRR no murmur/rub/gallop Lungs coarse breath sounds Abdomen soft NT/ND obese Extremities no pedal edema ASSESSMENT AND PLAN: 62 Y/O M with PMHx uncontrolled DM, HTN, HLD P/W SOB for 5 days, found to be in hypoxic respiratory failure and sepsis due to PNA, intubated for hypoxic respiratory failure, newly dxed Afib. 1. Acute Hypoxic respiratory failure- due to multilobar PNA. on medrol daily. Intubated in the ER. currently on 70% FiO2. titrate down as tolerated. treat infection. daily sedation vacations. further management per ICU team 2. sepsis due to Multi-lobar PNA- +legionella. afebrile. On Levaquin day 5. chest PT. quant pending/legionella serology pending. HIV negative. ID on board 3. MRSA wound infection- daily dressings on vanco day 5. level high yesterday and vanco level reduced to 1g BID. will repeat level prior to 4th dose (Thu AM) . F/u Cx 4. Afib with RVR- new onset. likely induced from sepsis and hypoxia. now in NSR. off amio, [id number] 2. on Hep ggt. echo reviewed. TSH wnl. can have ischemia workup outpatient vs prior to discharge. cardio on board. 5. Prolonged Qtc- avoid QT prolonging agents. daily EKG 6. DM- uncontrolled. A1c 11.5. started levemir yesterday. diabetic teaching when able. cont to titrate meds as tolerated. ISS and BGM. will need insulin on discharge 7. SONIDO- due to hypoperfusion. now improved. avoid nephrotoxic agents 8. DVT ppx- hep ggt 9. Full code. MICU monitoring The care of this patient involved high complexity decision making to prevent further life threatening deterioration of the patient's condition and/or to evaluate & treat vital organ system(s) failure or risk of failure. 40 mins
--- NOTE | 2018-03-29 15:07 | PN ---
Physical Exam: SUBJECTIVE: Patient seen and examined in the ICU. Remains intubated and sedated. Patient maintaining good MAP and not on pressers. mild temp 99.9 this morning. No overnight events per nurse. Vented on volume AC with 60% FiO2, PEEP 8. OBJECTIVE: Vital Signs Period Temp Pulse Resp BP Sys/Santacruz Pulse Ox Last 24 Hr 97 F-99.9 F 64-71 18-27 112-147/62-85 98-98 GENERAL: Intubated and sedated, not alert or oriented LUNGS: mechanical breath sounds b/l, very rhonchorous, w/ dec sounds on L side unchanged from previous exam HEART: RRR, S1 S2 no m/r/g ABDOMEN: BS present, soft, NTND Extremities: no peripheral edema noted SKIN: Warm, dry, normal turgor, no rashes or lesions noted Laboratory Results - last 24 hr 03/26/18 03/26/18 03/28/18 10:00 10:15 16:33 WBC RBC Hgb Hct MCV MCH MCHC RDW Plt Count MPV Absolute Neuts (auto) Neutrophils % Neutrophils % (Manual) Band Neutrophils % Lymphocytes % Lymphocytes % (Manual) Monocytes % Monocytes % (Manual) Eosinophils % Eosinophils % (Manual) Basophils % Basophils % (Manual) Myelocytes % (Man) Promyelocytes % (Man) Blast Cells % (Manual) Nucleated RBC % Metamyelocytes Hypochromia Platelet Estimate Polychromasia Poikilocytosis Anisocytosis Microcytosis Macrocytosis Tear Drop Cells PTT (Actin FS) Puncture Site ABG pH ABG pCO2 at Pt Temp ABG pO2 at Pt Temp ABG HCO3 ABG O2 Sat (Measured) ABG O2 Content ABG Base Excess Petey Test O2 Delivery Device Oxygen Flow Rate Vent Rate Mechanical Rate PEEP Pressure Support Vent Sodium Potassium Chloride Carbon Dioxide Anion Gap BUN Creatinine Creat Clearance w eGFR POC Glucometer Random Glucose Calcium Phosphorus Magnesium Total Bilirubin AST ALT Alkaline Phosphatase Total Protein Albumin Vancomycin Pre-Dose 19.2 HCV Quantitation Hcv not detected HCV RNA log copies/mL TNP TB Test (QFT) Nil 0.10 TB Test (QFT) Mitogen 0.30 TB Test (QFT) Indeterminate TB Positive Criteria TB Test (QFT) Interp No Result Required. 03/28/18 03/28/18 03/29/18 18:10 22:30 00:52 WBC RBC Hgb Hct MCV MCH MCHC RDW Plt Count MPV Absolute Neuts (auto) Neutrophils % Neutrophils % (Manual) Band Neutrophils % Lymphocytes % Lymphocytes % (Manual) Monocytes % Monocytes % (Manual) Eosinophils % Eosinophils % (Manual) Basophils % Basophils % (Manual) Myelocytes % (Man) Promyelocytes % (Man) Blast Cells % (Manual) Nucleated RBC % Metamyelocytes Hypochromia Platelet Estimate Polychromasia Poikilocytosis Anisocytosis Microcytosis Macrocytosis Tear Drop Cells PTT (Actin FS) Puncture Site Left radial ABG pH 7.34 L ABG pCO2 at Pt Temp 44.0 ABG pO2 at Pt Temp 75.1 L ABG HCO3 23.1 ABG O2 Sat (Measured) 93.1 ABG O2 Content 13.6 L ABG Base Excess -2.1 L Petey Test Positive O2 Delivery Device Vent Oxygen Flow Rate Fio2 60% Vent Rate 16 Mechanical Rate PEEP 8.0 Pressure Support Vent 400 Sodium Potassium Chloride Carbon Dioxide Anion Gap BUN Creatinine Creat Clearance w eGFR POC Glucometer [phone] Random Glucose Calcium Phosphorus Magnesium Total Bilirubin AST ALT Alkaline Phosphatase Total Protein Albumin Vancomycin Pre-Dose HCV Quantitation HCV RNA log copies/mL TB Test (QFT) Nil TB Test (QFT) Mitogen TB Test (QFT) TB Positive Criteria TB Test (QFT) Interp 03/29/18 03/29/18 03/29/18 05:27 05:30 05:30 WBC 19.6 H RBC 4.01 Hgb 10.3 L Hct 31.4 L MCV 78.2 L MCH 25.7 MCHC 32.9 RDW 14.7 Plt Count 243 D MPV 11.0 Absolute Neuts (auto) 16.3 H Neutrophils % 83.0 H Neutrophils % (Manual) 72.3 Band Neutrophils % 5.9 Lymphocytes % 6.4 L D Lymphocytes % (Manual) 4.9 L Monocytes % 8.1 Monocytes % (Manual) 6 D Eosinophils % 2.4 D Eosinophils % (Manual) 2.0 Basophils % 0.1 Basophils % (Manual) 1.0 D Myelocytes % (Man) 4 H D Promyelocytes % (Man) 0 Blast Cells % (Manual) 0 Nucleated RBC % 0 Metamyelocytes 0 Hypochromia 0 Platelet Estimate Normal Polychromasia 1+ Poikilocytosis 2+ Anisocytosis 1+ Microcytosis 1+ Macrocytosis 0 Tear Drop Cells 1+ PTT (Actin FS) 60.7 H Puncture Site ABG pH ABG pCO2 at Pt Temp ABG pO2 at Pt Temp ABG HCO3 ABG O2 Sat (Measured) ABG O2 Content ABG Base Excess Petey Test O2 Delivery Device Oxygen Flow Rate Vent Rate Mechanical Rate PEEP Pressure Support Vent Sodium Potassium Chloride Carbon Dioxide Anion Gap BUN Creatinine Creat Clearance w eGFR POC Glucometer [phone] Random Glucose Calcium Phosphorus Magnesium Total Bilirubin AST ALT Alkaline Phosphatase Total Protein Albumin Vancomycin Pre-Dose HCV Quantitation HCV RNA log copies/mL TB Test (QFT) Nil TB Test (QFT) Mitogen TB Test (QFT) TB Positive Criteria TB Test (QFT) Interp 03/29/18 03/29/18 03/29/18 05:30 06:15 12:04 WBC RBC Hgb Hct MCV MCH MCHC RDW Plt Count MPV Absolute Neuts (auto) Neutrophils % Neutrophils % (Manual) Band Neutrophils % Lymphocytes % Lymphocytes % (Manual) Monocytes % Monocytes % (Manual) Eosinophils % Eosinophils % (Manual) Basophils % Basophils % (Manual) Myelocytes % (Man) Promyelocytes % (Man) Blast Cells % (Manual) Nucleated RBC % Metamyelocytes Hypochromia Platelet Estimate Polychromasia Poikilocytosis Anisocytosis Microcytosis Macrocytosis Tear Drop Cells PTT (Actin FS) Puncture Site Left radial ABG pH 7.37 ABG pCO2 at Pt Temp 42.4 ABG pO2 at Pt Temp 84.8 ABG HCO3 23.7 ABG O2 Sat (Measured) 94.7 ABG O2 Content 13.6 L ABG Base Excess -1.1 Petey Test Positive O2 Delivery Device Vent Oxygen Flow Rate 60% Vent Rate 20 Mechanical Rate Yes PEEP 8.0 Pressure Support Vent 400 Sodium 143 Potassium 4.3 Chloride 110 H Carbon Dioxide 24 Anion Gap 9 BUN 42 H Creatinine 1.1 Creat Clearance w eGFR > 60 POC Glucometer [phone] Random Glucose 285 H Calcium 7.1 L Phosphorus 2.7 Magnesium 3.1 H Total Bilirubin 0.4 AST 18 ALT 15 Alkaline Phosphatase 76 Total Protein 4.9 L Albumin 1.4 L Vancomycin Pre-Dose HCV Quantitation HCV RNA log copies/mL TB Test (QFT) Nil TB Test (QFT) Mitogen TB Test (QFT) TB Positive Criteria TB Test (QFT) Interp Active Medications Generic Name Dose Route Start Last Admin Trade Name Darenq PRN Reason Stop Dose Admin Acetaminophen 1,000 mg 03/26/18 19:02 03/29/18 11:59 Ofirmev Injection - IVPB 1,000 mg Q6H PRN Administration FEVER Albuterol/Ipratropium 1 amp 03/26/18 05:47 Duoneb - NEB Q4H PRN SHORTNESS OF BREATH Amino Acids 30 ml 03/27/18 17:30 03/29/18 09:00 Prosource No Carb Liquid Pkt PO 30 ml BID@0800,1730 [facility] Administration Chlorhexidine Gluconate 1 applic 03/26/18 22:00 03/28/18 21:53 Hibiclens For Decolonization - TP 1 applic HS [facility] Administration Chlorhexidine Gluconate 15 ml 03/28/18 10:00 03/29/18 09:20 Peridex - MM 15 ml BID [facility] Administration Enoxaparin Sodium 90 mg 03/29/18 13:15 Lovenox - SQ BID [facility] Propofol 1,000,000 mcg in 100 mls @ 2.409 mls/hr 03/26/18 07:45 03/29/18 08: 00 Diprivan - IVPB 45 mcg/kg/min TITR [facility] 21.677 mls/hr Administration Protocol 5 MCG/KG/MIN Fentanyl 500 mcg/ Dextrose 100 mls @ 5 mls/hr 03/26/18 07:45 03/29/18 09:21 IVPB 75 mcg/hr TITR [facility] 15 mls/hr Administration Protocol 25 MCG/HR Levofloxacin 750 mg in 150 mls @ 150 mls/hr 03/26/18 16:30 03/29/18 09:20 Levaquin 750 Mg Premixed Ivpb - IVPB 150 mls/hr DAILY [facility] Administration Protocol Vancomycin HCl 1,000 mg in 250 mls @ 166.667 mls/hr 03/29/18 16:30 Vancomycin (Pre-Docked) IVPB Q12H [facility] Protocol Insulin Aspart 1 vial 03/28/18 08:30 03/29/18 12:05 Novolog Vial Sliding Scale - SQ 10 units Q6HPO [facility] Administration Protocol Insulin Detemir 10 units 03/28/18 22:00 03/28/18 21:53 Levemir Vial SQ 10 units HS [facility] Administration Methylprednisolone Sodium Succinate 40 mg 03/26/18 13:59 03/29/18 09:19 Solu-Medrol - IVPUSH 03/31/18 23:59 40 mg DAILY [facility] Administration Metoprolol Tartrate 12.5 mg 03/28/18 12:15 03/29/18 09:20 Lopressor - PO 12.5 mg BID [facility] Administration Mupirocin 1 applic 03/26/18 22:00 03/29/18 09:21 Bactroban Ointment (For Decolonization) - NS 03/31/18 22:01 1 applic BID [facility] Administration Pantoprazole Sodium 40 mg 03/26/18 12:00 03/29/18 09:18 Protonix Iv IVPUSH 40 mg BID [facility] Administration ASSESSMENT/PLAN: 62 year old male who presented for shortness of breath, fever, chills, malaise and was found to have complete left lung white out on CXR, new onset atrial fibrillation, and DKA. Patient admitted to ICU for further monitoring and management. Found w/ presum pos legionella antigen NEURO: -intubated and sedated PULMONARY #Acute Hypoxic Respiratory failure -Likely secondary to Post obstructive Pneumonia from total white out and mass in the left lung. -CT showing consolidation of entire L lung and post R lung c/w PNA -legionella antigen presumptive positive, serum legionella -continue vancomycin and levaquin, per ID -monitor QTc, amio was dcd, QTc today 409 -daily ABG -taper FiO2 to keep SpO2 >90% -hold sedation in AM to assess mental status -spontaneous breathing trials as tolerated once mental status improved dc steroids in 2 days INFECTIOUS DISEASE #Sepsis Secondary to Bilateral Pneumonia -mild temp 99.9 in the early am -central line removed, Patient maintaining good MAP and not on pressers. -legionella antigen presumptive positive, check serum legionella -continue vancomycin and levaquin, QTc today 409 -Sputum, Blood cultures neg -ID consult -dc steroids in 2 days CARDIOLOGY #Atrial Fibrillation w/ RVR yesterday Patient became tachy. metoprolol was started for HR maintenance. -dc Heparin drip for AC -lovenox 90 bid, Cr 1.1 -c/w metop 12.5 bid PO -ECHO RV ystolic 30-40, nl LVSF, nl EF -Cardiology consult -central line removed, Patient maintaining good MAP and not on pressers. pt has 2 good peripheral lines #HTN Monitor CVP 8-12 Endocrine #hyperglycemia ISS levemir 10U HEMATOLOGY -H/H now stable at 10.3 - Hb was dropping. Recent values: 14, 11, 10.6, 10.3 yesterday. - Continue to Trend. Will transfuse if less than 7 #Elevated INR -possible malignancy -Patient denies taking Coumadin, or any blood thinners. Denies alcohol use. -Continue to monitor F/E/N -dc IV LR @83mls/hr, feeds are at goal 35ml -replete prn -enteral feeds Prophylaxis -dc Heparin drip, start lovenox 90 bid for DVT/A-fib -protonix bid Disposition -Full code -ICU monitoring Visit type - Emergency Visit Emergency Visit: Yes ED Registration Date: 03/25/18 Care time: The patient presented to the Emergency Department on the above date and was hospitalized for further evaluation of their emergent condition. - New Patient This patient is new to me today: Yes Date on this admission: 03/29/18 - Critical Care Critical Care patient: Yes Total Critical Care Time (in minutes): 38 Critical Care Statement: The care of this patient involved high complexity decision making to prevent further life threatening deterioration of the patient 's condition and/or to evaluate & treat vital organ system(s) failure or risk of failure.
[2018-03-29] MEDS: ENOXAPARIN NA (PORCINE) 100 MG/1 ML DISP.SYRIN SQ SCH ×2 (16:24→21:08)
[2018-03-29] MEDS: VANCOMYCIN 1 GRAM (PRE-DOCKED) 1,000 MG/250 ML BAG IVPB SCH (16:24)
[2018-03-29 16:28] LABS: MYCOPLASMA PNEUMONIAE,IG G AB <100 U/mL (0-99); MYCOPLASMA PNEUMONIAE,IGM AB <770 U/mL (0-769)
--- NOTE | 2018-03-29 17:54 | PN ---
Physical Exam: SUBJECTIVE: Patient seen and examined at bedside. No longer receiving pressors, central line removed. Vented on volume AC with 60% FiO2, PEEP 8. OBJECTIVE: Vital Signs Period Temp Pulse Resp BP Sys/Santacruz Pulse Ox Last 24 Hr 97.4 F-99.9 F 66-71 18-27 112-147/62-85 98-98 GENERAL: Intubated and sedated HEAD: NC/AT EYES: Pinpoint LUNGS: CTA B/L Anteriorly. HEART: Regular rate and rhythm, S1, S2 without murmur, rub or gallop. ABDOMEN: + BS, morataya catheter draining yellow urine, ND EXTREMITIES: No CCE. SKIN: Warm, dry, normal turgor, no rashes or lesions noted Laboratory Results - last 24 hr 03/26/18 03/26/18 03/26/18 10:00 10:00 10:15 WBC RBC Hgb Hct MCV MCH MCHC RDW Plt Count MPV Absolute Neuts (auto) Neutrophils % Neutrophils % (Manual) Band Neutrophils % Lymphocytes % Lymphocytes % (Manual) Monocytes % Monocytes % (Manual) Eosinophils % Eosinophils % (Manual) Basophils % Basophils % (Manual) Myelocytes % (Man) Promyelocytes % (Man) Blast Cells % (Manual) Nucleated RBC % Metamyelocytes Hypochromia Platelet Estimate Polychromasia Poikilocytosis Anisocytosis Microcytosis Macrocytosis Tear Drop Cells PTT (Actin FS) Puncture Site ABG pH ABG pCO2 at Pt Temp ABG pO2 at Pt Temp ABG HCO3 ABG O2 Sat (Measured) ABG O2 Content ABG Base Excess Petey Test O2 Delivery Device Oxygen Flow Rate Vent Rate Mechanical Rate PEEP Pressure Support Vent Sodium Potassium Chloride Carbon Dioxide Anion Gap BUN Creatinine Creat Clearance w eGFR POC Glucometer Random Glucose Calcium Phosphorus Magnesium Total Bilirubin AST ALT Alkaline Phosphatase Total Protein Albumin HCV Quantitation Hcv not detected HCV RNA log copies/mL TNP M.pneumoniae IgG Titer <100 M.pneumoniae IgM Titer <770 TB Test (QFT) Nil 0.10 TB Test (QFT) Mitogen 0.30 TB Test (QFT) Indeterminate TB Positive Criteria TB Test (QFT) Interp No Result Required. 03/28/18 03/28/18 03/29/18 18:10 22:30 00:52 WBC RBC Hgb Hct MCV MCH MCHC RDW Plt Count MPV Absolute Neuts (auto) Neutrophils % Neutrophils % (Manual) Band Neutrophils % Lymphocytes % Lymphocytes % (Manual) Monocytes % Monocytes % (Manual) Eosinophils % Eosinophils % (Manual) Basophils % Basophils % (Manual) Myelocytes % (Man) Promyelocytes % (Man) Blast Cells % (Manual) Nucleated RBC % Metamyelocytes Hypochromia Platelet Estimate Polychromasia Poikilocytosis Anisocytosis Microcytosis Macrocytosis Tear Drop Cells PTT (Actin FS) Puncture Site Left radial ABG pH 7.34 L ABG pCO2 at Pt Temp 44.0 ABG pO2 at Pt Temp 75.1 L ABG HCO3 23.1 ABG O2 Sat (Measured) 93.1 ABG O2 Content 13.6 L ABG Base Excess -2.1 L Petey Test Positive O2 Delivery Device Vent Oxygen Flow Rate Fio2 60% Vent Rate 16 Mechanical Rate PEEP 8.0 Pressure Support Vent 400 Sodium Potassium Chloride Carbon Dioxide Anion Gap BUN Creatinine Creat Clearance w eGFR POC Glucometer [phone] Random Glucose Calcium Phosphorus Magnesium Total Bilirubin AST ALT Alkaline Phosphatase Total Protein Albumin HCV Quantitation HCV RNA log copies/mL M.pneumoniae IgG Titer M.pneumoniae IgM Titer TB Test (QFT) Nil TB Test (QFT) Mitogen TB Test (QFT) TB Positive Criteria TB Test (QFT) Interp 03/29/18 03/29/18 03/29/18 05:27 05:30 05:30 WBC 19.6 H RBC 4.01 Hgb 10.3 L Hct 31.4 L MCV 78.2 L MCH 25.7 MCHC 32.9 RDW 14.7 Plt Count 243 D MPV 11.0 Absolute Neuts (auto) 16.3 H Neutrophils % 83.0 H Neutrophils % (Manual) 72.3 Band Neutrophils % 5.9 Lymphocytes % 6.4 L D Lymphocytes % (Manual) 4.9 L Monocytes % 8.1 Monocytes % (Manual) 6 D Eosinophils % 2.4 D Eosinophils % (Manual) 2.0 Basophils % 0.1 Basophils % (Manual) 1.0 D Myelocytes % (Man) 4 H D Promyelocytes % (Man) 0 Blast Cells % (Manual) 0 Nucleated RBC % 0 Metamyelocytes 0 Hypochromia 0 Platelet Estimate Normal Polychromasia 1+ Poikilocytosis 2+ Anisocytosis 1+ Microcytosis 1+ Macrocytosis 0 Tear Drop Cells 1+ PTT (Actin FS) 60.7 H Puncture Site ABG pH ABG pCO2 at Pt Temp ABG pO2 at Pt Temp ABG HCO3 ABG O2 Sat (Measured) ABG O2 Content ABG Base Excess Petey Test O2 Delivery Device Oxygen Flow Rate Vent Rate Mechanical Rate PEEP Pressure Support Vent Sodium Potassium Chloride Carbon Dioxide Anion Gap BUN Creatinine Creat Clearance w eGFR POC Glucometer [phone] Random Glucose Calcium Phosphorus Magnesium Total Bilirubin AST ALT Alkaline Phosphatase Total Protein Albumin HCV Quantitation HCV RNA log copies/mL M.pneumoniae IgG Titer M.pneumoniae IgM Titer TB Test (QFT) Nil TB Test (QFT) Mitogen TB Test (QFT) TB Positive Criteria TB Test (QFT) Interp 03/29/18 03/29/18 03/29/18 05:30 06:15 12:04 WBC RBC Hgb Hct MCV MCH MCHC RDW Plt Count MPV Absolute Neuts (auto) Neutrophils % Neutrophils % (Manual) Band Neutrophils % Lymphocytes % Lymphocytes % (Manual) Monocytes % Monocytes % (Manual) Eosinophils % Eosinophils % (Manual) Basophils % Basophils % (Manual) Myelocytes % (Man) Promyelocytes % (Man) Blast Cells % (Manual) Nucleated RBC % Metamyelocytes Hypochromia Platelet Estimate Polychromasia Poikilocytosis Anisocytosis Microcytosis Macrocytosis Tear Drop Cells PTT (Actin FS) Puncture Site Left radial ABG pH 7.37 ABG pCO2 at Pt Temp 42.4 ABG pO2 at Pt Temp 84.8 ABG HCO3 23.7 ABG O2 Sat (Measured) 94.7 ABG O2 Content 13.6 L ABG Base Excess -1.1 Petey Test Positive O2 Delivery Device Vent Oxygen Flow Rate 60% Vent Rate 20 Mechanical Rate Yes PEEP 8.0 Pressure Support Vent 400 Sodium 143 Potassium 4.3 Chloride 110 H Carbon Dioxide 24 Anion Gap 9 BUN 42 H Creatinine 1.1 Creat Clearance w eGFR > 60 POC Glucometer [phone] Random Glucose 285 H Calcium 7.1 L Phosphorus 2.7 Magnesium 3.1 H Total Bilirubin 0.4 AST 18 ALT 15 Alkaline Phosphatase 76 Total Protein 4.9 L Albumin 1.4 L HCV Quantitation HCV RNA log copies/mL M.pneumoniae IgG Titer M.pneumoniae IgM Titer TB Test (QFT) Nil TB Test (QFT) Mitogen TB Test (QFT) TB Positive Criteria TB Test (QFT) Interp Active Medications Generic Name Dose Route Start Last Admin Trade Name Freq PRN Reason Stop Dose Admin Acetaminophen 1,000 mg 03/26/18 19:02 03/29/18 11:59 Ofirmev Injection - IVPB 1,000 mg Q6H PRN Administration FEVER Albuterol/Ipratropium 1 amp 03/26/18 05:47 Duoneb - NEB Q4H PRN SHORTNESS OF BREATH Amino Acids 30 ml 03/27/18 17:30 03/29/18 09:00 Prosource No Carb Liquid Pkt PO 30 ml BID@0800,1730 [facility] Administration Chlorhexidine Gluconate 1 applic 03/26/18 22:00 03/28/18 21:53 Hibiclens For Decolonization - TP 1 applic HS [facility] Administration Chlorhexidine Gluconate 15 ml 03/28/18 10:00 03/29/18 09:20 Peridex - MM 15 ml BID [facility] Administration Enoxaparin Sodium 90 mg 03/29/18 13:15 03/29/18 16:24 Lovenox - SQ 90 mg BID [facility] Administration Propofol 1,000,000 mcg in 100 mls @ 2.409 mls/hr 03/26/18 07:45 03/29/18 08: 00 Diprivan - IVPB 45 mcg/kg/min TITR [facility] 21.677 mls/hr Administration Protocol 5 MCG/KG/MIN Fentanyl 500 mcg/ Dextrose 100 mls @ 5 mls/hr 03/26/18 07:45 03/29/18 09:21 IVPB 75 mcg/hr TITR [facility] 15 mls/hr Administration Protocol 25 MCG/HR Levofloxacin 750 mg in 150 mls @ 150 mls/hr 03/26/18 16:30 03/29/18 09:20 Levaquin 750 Mg Premixed Ivpb - IVPB 150 mls/hr DAILY [facility] Administration Protocol Vancomycin HCl 1,000 mg in 250 mls @ 166.667 mls/hr 03/29/18 16:30 03/29/18 16:24 Vancomycin (Pre-Docked) IVPB 166.667 mls/hr Q12H [facility] Administration Protocol Insulin Aspart 1 vial 03/28/18 08:30 03/29/18 12:05 Novolog Vial Sliding Scale - SQ 10 units Q6HPO [facility] Administration Protocol Insulin Detemir 10 units 03/28/18 22:00 03/28/18 21:53 Levemir Vial SQ 10 units HS [facility] Administration Methylprednisolone Sodium Succinate 40 mg 03/26/18 13:59 03/29/18 09:19 Solu-Medrol - IVPUSH 03/31/18 23:59 40 mg DAILY [facility] Administration Metoprolol Tartrate 12.5 mg 03/28/18 12:15 03/29/18 09:20 Lopressor - PO 12.5 mg BID [facility] Administration Mupirocin 1 applic 03/26/18 22:00 03/29/18 09:21 Bactroban Ointment (For Decolonization) - NS 03/31/18 22:01 1 applic BID [facility] Administration Pantoprazole Sodium 40 mg 03/26/18 12:00 03/29/18 09:18 Protonix Iv IVPUSH 40 mg BID [facility] Administration ASSESSMENT/PLAN: Patient is a 62 year old male with history of DM, HTN, HLD presents with complaint of shortness of breath for past five days. Sepsis secondary to pneumonia -Chest xray shows white out of left lung. -Patient received Vancomycin and Zosyn in ED -Now on Levaquin day 5 and Vanco. -Lactic acidosis resolved -Infectious disease Dr Rosenbaum on board -Temp 99.9 in am --Legionella antigen presumptive positive, check serum legionella -Urine/Blood cultures negative Acute respiratory failure -Likely secondary to the pneumonia -Vented on volume AC with 60% FiO2, PEEP 8. -F/U ABG -Hold sedation in AM to assess mental status Afib -Patient denies history of Afib, or any cardiac history in past. -CHADsVASC score of 2 -Lovenox 90 bid -Lopressor 12.5 BID -Cardiac monitoring -Cardiology on board Hypertension Lopressor 12.5 BID FEN -No Fluids -Monitor Electrolytes -Clinimix Prophylaxis -lovenox 90 bid Disposition -care per icu team Visit type - Emergency Visit Emergency Visit: Yes ED Registration Date: 03/25/18 Care time: The patient presented to the Emergency Department on the above date and was hospitalized for further evaluation of their emergent condition. - New Patient This patient is new to me today: No - Critical Care Critical Care patient: Yes Total Critical Care Time (in minutes): 35 Critical Care Statement: The care of this patient involved high complexity decision making to prevent further life threatening deterioration of the patient 's condition and/or to evaluate & treat vital organ system(s) failure or risk of failure. - Discharge Referral Referred to [facility] No
[2018-03-29] MEDS: INSULIN (LEVEMIR) 100 UNITS/ML UNITS SQ SCH (21:07)
[2018-03-29] MEDS: CHLORHEXIDINE GLUCONATE 4% CLEANSER FOR DECOLONIZATION TP SCH (21:07)
[2018-03-30] MEDS ORDERED: fentaNYL CITRATE 250 MCG/5 ML VIAL ONE ×4 (00:28→23:37)
[2018-03-30] MEDS: VANCOMYCIN 1 GRAM (PRE-DOCKED) 1,000 MG/250 ML BAG IVPB SCH ×2 (05:00→16:18)
[2018-03-30 06:14] LABS: ARTERIAL BLOOD GAS pH 7.38 (7.35-7.45)
[2018-03-30 06:24] LABS: BASO % 0.2 % (0-2.0); EOS % 2.7 % (0-4.5); HEMATOCRIT 30.8 % (35.4-49); HEMOGLOBIN 10.2 GM/dL (11.7-16.9); LYMPH % 8.6 % (8-40); MCH 26.1 pg (25.7-33.7); MEAN PLT VOLUME 10.6 fl (7.5-11.1); MONO % 5.5 % (3.8-10.2); PLATELET COUNT 272 K/MM3 (134-434); RBC 3.89 M/mm3 (4.00-5.60); RDW 14.9 % (11.9-15.9); WHITE BLOOD COUNT 22.8 K/mm3 (4.0-10.0)
[2018-03-30 06:51] LABS: ARTERIAL BLD GAS O2 SATURATION 94.7 % (90-98.9); ARTERIAL BLOOD GAS BASE EXCESS 0.6 meq/l (-2-2); ARTERIAL BLOOD GAS PO2 81.5 mmHg (80-100)
[2018-03-30 06:52] LABS: ALLENS TEST POSITIVE
[2018-03-30 06:56] LABS: ALBUMIN 1.4 g/dl (3.4-5.0); ALK PHOS 64 U/L (45-117); ANION GAP 5 MMOL/L (8-16); BILIRUBIN,TOTAL 0.4 mg/dL (0.2-1); BLOOD UREA NITROGEN 38 mg/dL (7-18); CALCIUM 7.4 mg/dL (8.5-10.1); CHLORIDE 111 mmol/L (98-107); CO2 27 mmol/L (21-32); CREATININE 1.1 mg/dL (0.55-1.3); GLUCOSE,RANDOM 269 mg/dL (74-106); PHOSPHOROUS 3.7 mg/dL (2.5-4.9); POTASSIUM 4.2 mmol/L (3.5-5.1); SGOT/AST 12 U/L (15-37); SGPT/ALT 12 U/L (13-61); SODIUM 143 mmol/L (136-145); TOT PROT 4.8 g/dl (6.4-8.2)
[2018-03-30] MEDS: INSULIN SLIDING SCALE (NOVOLOG) 1 VIAL SQ SCH ×3 (06:57→17:30)
[2018-03-30] MEDS ORDERED: INSULIN (LEVEMIR) 100 UNITS/ML UNITS SQ SCH (08:50)
--- NOTE | 2018-03-30 09:31 | PN ---
Progress Note, Physician History of Present Illness: Sedated on ventilator No acute distress Temps down WBC remains elevated on steroids FiO2 60% CXR better aeration L lung - Current Medication List Current Medications: Active Medications Acetaminophen (Ofirmev Injection -) 1,000 mg IVPB Q6H PRN PRN Reason: FEVER Last Admin: 03/29/18 11:59 Dose: 1,000 mg Albuterol/Ipratropium (Duoneb -) 1 amp NEB Q4H PRN PRN Reason: SHORTNESS OF BREATH Amino Acids (Prosource No Carb Liquid Pkt) 30 ml PO BID@0800,1730 [facility] Last Admin: 03/29/18 18:25 Dose: 30 ml Chlorhexidine Gluconate (Hibiclens For Decolonization -) 1 applic TP HS [facility] Last Admin: 03/29/18 21:07 Dose: 1 applic Chlorhexidine Gluconate (Peridex -) 15 ml MM BID [facility] Last Admin: 03/29/18 21:09 Dose: 15 ml Enoxaparin Sodium (Lovenox -) 90 mg SQ BID [facility] Last Admin: 03/29/18 21:08 Dose: 90 mg Propofol (Diprivan -) 1,000,000 mcg in 100 mls @ 2.409 mls/hr IVPB TITR [facility]; Protocol Last Admin: 03/29/18 08:00 Dose: 45 mcg/kg/min, 21.677 mls/hr Fentanyl 500 mcg/ Dextrose 100 mls @ 5 mls/hr IVPB TITR [facility]; Protocol Last Admin: 03/29/18 09:21 Dose: 75 mcg/hr, 15 mls/hr Levofloxacin (Levaquin 750 Mg Premixed Ivpb -) 750 mg in 150 mls @ 150 mls/hr IVPB DAILY [facility]; Protocol Last Admin: 03/29/18 09:20 Dose: 150 mls/hr Vancomycin HCl (Vancomycin (Pre-Docked)) 1,000 mg in 250 mls @ 166.667 mls/hr IVPB Q12H [facility]; Protocol Last Admin: 03/30/18 05:00 Dose: 166.667 mls/hr Insulin Aspart (Novolog Vial Sliding Scale -) 1 vial SQ Q6HPO [facility]; Protocol Last Admin: 03/30/18 06:57 Dose: 6 units Insulin Detemir (Levemir Vial) 18 units SQ HS [facility] Methylprednisolone Sodium Succinate (Solu-Medrol -) 40 mg IVPUSH DAILY [facility] Stop: 03/31/18 23:59 Last Admin: 03/29/18 09:19 Dose: 40 mg Metoprolol Tartrate (Lopressor -) 12.5 mg PO BID [facility] Last Admin: 03/29/18 23:10 Dose: Not Given Mupirocin (Bactroban Ointment (For Decolonization) -) 1 applic NS BID [facility] Stop: 03/31/18 22:01 Last Admin: 03/29/18 21:07 Dose: 1 applic Pantoprazole Sodium (Protonix Iv) 40 mg IVPUSH BID [facility] Last Admin: 03/29/18 21:09 Dose: 40 mg - Objective Vital Signs: Vital Signs Temperature 98.7 F 03/30/18 06:00 Pulse Rate 71 03/30/18 08:00 Respiratory Rate 20 03/30/18 08:00 Blood Pressure 142/76 03/30/18 08:00 O2 Sat by Pulse Oximetry (%) 96 03/29/18 23:14 Constitutional: Yes: No Distress Eyes: Yes: Conjunctiva Clear Cardiovascular: Yes: Regular Rate and Rhythm, S1, S2 Respiratory: Yes: Mechanically Ventilated Gastrointestinal: Yes: Normal Bowel Sounds, Soft. No: Tenderness Edema: Yes Labs: CBC, BMP 03/30/18 05:30 03/30/18 05:30 INR, PTT INR 1.51 (0.83-1.09) H 03/26/18 05:13 Assessment/Plan Multilobar legionella pneumonia Respiratory failure Sepsis secondary to lung source Leukocytosis lactic acidosis + Wound c/s MRSA Continue levaquin/ vancomycin Ventilatory support Contact precautions for + wound c/s MRSA
[2018-03-30] MEDS: FENTANYL INJECTION 500 MCG in DEXTROSE 5%-WATER - 90 ML IVPB SCH ×3 (09:49→15:16)
[2018-03-30] MEDS: MUPIROCIN 2% TOPICAL OINTMENT FOR DECOLONIZATION NS SCH ×2 (10:00→21:10)
[2018-03-30] MEDS: PANTOPRAZOLE SODIUM 40 MG VIAL IVPUSH SCH ×2 (10:03→21:12)
[2018-03-30] MEDS: methylPREDNISolone NA SUCC 40 MG/1 ML VIAL IVPUSH SCH (10:03)
[2018-03-30] MEDS: METOPROLOL TARTRATE 25 MG TABLET (FP) PO SCH ×2 (10:03→21:12)
--- NOTE | 2018-03-30 10:06 | PN ---
Progress Note (short form) - Note Progress Note: Chief Complaint: resp failure History of Present Illness: intubated/sedated Current Medications Acetaminophen (Ofirmev Injection -) 1,000 mg IVPB Q6H PRN PRN Reason: FEVER Last Admin: 03/29/18 11:59 Dose: 1,000 mg Albuterol/Ipratropium (Duoneb -) 1 amp NEB Q4H PRN PRN Reason: SHORTNESS OF BREATH Amino Acids (Prosource No Carb Liquid Pkt) 30 ml PO BID@0800,1730 [facility] Last Admin: 03/29/18 18:25 Dose: 30 ml Chlorhexidine Gluconate (Hibiclens For Decolonization -) 1 applic TP HS [facility] Last Admin: 03/29/18 21:07 Dose: 1 applic Chlorhexidine Gluconate (Peridex -) 15 ml MM BID [facility] Last Admin: 03/29/18 21:09 Dose: 15 ml Enoxaparin Sodium (Lovenox -) 90 mg SQ BID [facility] Last Admin: 03/29/18 21:08 Dose: 90 mg Propofol (Diprivan -) 1,000,000 mcg in 100 mls @ 2.409 mls/hr IVPB TITR [facility]; Protocol Last Admin: 03/29/18 08:00 Dose: 45 mcg/kg/min, 21.677 mls/hr Fentanyl 500 mcg/ Dextrose 100 mls @ 5 mls/hr IVPB TITR [facility]; Protocol Last Admin: 03/29/18 09:21 Dose: 75 mcg/hr, 15 mls/hr Levofloxacin (Levaquin 750 Mg Premixed Ivpb -) 750 mg in 150 mls @ 150 mls/hr IVPB DAILY [facility]; Protocol Last Admin: 03/29/18 09:20 Dose: 150 mls/hr Vancomycin HCl (Vancomycin (Pre-Docked)) 1,000 mg in 250 mls @ 166.667 mls/hr IVPB Q12H [facility]; Protocol Last Admin: 03/30/18 05:00 Dose: 166.667 mls/hr Insulin Aspart (Novolog Vial Sliding Scale -) 1 vial SQ Q6HPO [facility]; Protocol Last Admin: 03/30/18 06:57 Dose: 6 units Insulin Detemir (Levemir Vial) 18 units SQ HS [facility] Methylprednisolone Sodium Succinate (Solu-Medrol -) 40 mg IVPUSH DAILY [facility] Stop: 03/31/18 23:59 Last Admin: 03/29/18 09:19 Dose: 40 mg Metoprolol Tartrate (Lopressor -) 12.5 mg PO BID [facility] Last Admin: 03/29/18 23:10 Dose: Not Given Mupirocin (Bactroban Ointment (For Decolonization) -) 1 applic NS BID [facility] Stop: 03/31/18 22:01 Last Admin: 03/29/18 21:07 Dose: 1 applic Pantoprazole Sodium (Protonix Iv) 40 mg IVPUSH BID [facility] Last Admin: 03/29/18 21:09 Dose: 40 mg - Objective Vital Signs: Vital Signs Period Temp Pulse Resp BP Sys/Santacruz Pulse Ox Last 24 Hr 98.7 F-98.8 F 55-72 18-27 121-147/64-85 96-96 Constitutional: Yes: No Distress, Calm, intubated Eyes: No: Sclera Icterus HENT: No: Nasal Congestion Cardiovascular: Yes: Regular Rate and Rhythm, S1, S2, Other (PMI non diplaced). No: Gallop, Murmur Respiratory: Yes: CTA Bilaterally (anteriorly). No: Accessory Muscle Use Gastrointestinal: Yes: Normal Bowel Sounds, Soft. No: Tenderness Musculoskeletal: Yes: Other (No kyphosis) Extremities: No: Cold Edema: No Integumentary: No: Jaundice Neurological: No: Alert, Oriented (x3) Psychiatric: No: Agitated Assessment/Plan ct chest: b/l pna ecg: afib vr 154, no ischemic changes, nl qtc echo 03/18: nl LVSF. nl RV. nl LA. mild MR/TR. RVSP 30-40 tele: NSR with two brief episodes of NSVT rate 120s a/p: 62 m hx dm, hld, htn here with fever, leg wound. sepsis, PNA, acute resp failure: -has sahu abscess as well as b/l pna -cont abx per ID/crit care -vent management per ICU team -no signs chf or acs -no pressor requirement at present, bp stable afib, rvr: -unknown if new onset -in er started on dilt gtt and amio gtt-->sinus -cont metoprolol, brief episodes NSVT -chadsvasc 2 warrants ac, on lovenox anemia: -hgb down 14 to 10, stable x few days -on lovenox -observe trend SONIDO: -bun/creat up 03/27, ? intravasc vol depletion in setting of DKA -improved with IVF dm: -on insulin -per crit care htn: -bp soft here initially, home meds held, stable on metoprolol
[2018-03-30] MEDS: CHLORHEXIDINE GLUCONATE 0.12% 15ML CUP MM SCH ×2 (11:00→21:12)
[2018-03-30] MEDS: ENOXAPARIN NA (PORCINE) 100 MG/1 ML DISP.SYRIN SQ SCH ×2 (11:00→21:40)
[2018-03-30] MEDS: AMINO ACIDS/PROTEIN HYDROLYS 30 ML LIQUID.PKT PO SCH ×2 (11:00→17:30)
[2018-03-30] MEDS: PROPOFOL 1,000,000 MCG/100 ML VIAL IVPB SCH ×2 (12:00→15:15)
--- NOTE | 2018-03-30 12:28 | PN ---
Physical Exam: SUBJECTIVE: Patient seen and examined at bedside. Remains sedated and intubated. no acute events overnight. OBJECTIVE: Vital Signs Period Temp Pulse Resp BP Sys/Santacruz Pulse Ox Last 24 Hr 98.7 F-99.4 F 55-76 18-22 121-145/64-76 96-96 GENERAL: Sedated and Intubated HEAD: NC/AT LUNGS: Rhonchi b/l. HEART: Irregular ABDOMEN: ND No Rigidity, BS+ EXTREMITIES: No pitting edema SKIN: No rashes appreciated Laboratory Results - last 24 hr 03/26/18 03/26/18 03/29/18 10:00 10:00 18:30 WBC RBC Hgb Hct MCV MCH MCHC RDW Plt Count MPV Absolute Neuts (auto) Neutrophils % Lymphocytes % Monocytes % Eosinophils % Basophils % Nucleated RBC % PTT (Actin FS) Puncture Site ABG pH ABG pCO2 at Pt Temp ABG pO2 at Pt Temp ABG HCO3 ABG O2 Sat (Measured) ABG O2 Content ABG Base Excess Pteey Test O2 Delivery Device Oxygen Flow Rate Vent Rate Mechanical Rate PEEP Pressure Support Vent Sodium Potassium Chloride Carbon Dioxide Anion Gap BUN Creatinine Creat Clearance w eGFR POC Glucometer [phone] Random Glucose Calcium Phosphorus Magnesium Total Bilirubin AST ALT Alkaline Phosphatase Total Protein Albumin HCV Quantitation Hcv not detected HCV RNA log copies/mL TNP M.pneumoniae IgG Titer <100 M.pneumoniae IgM Titer <770 03/29/18 03/30/18 03/30/18 23:44 05:30 05:30 WBC 22.8 H RBC 3.89 L Hgb 10.2 L Hct 30.8 L MCV 79.0 L MCH 26.1 MCHC 33.0 RDW 14.9 Plt Count 272 MPV 10.6 Absolute Neuts (auto) 19.0 H Neutrophils % 83.0 H Lymphocytes % 8.6 D Monocytes % 5.5 Eosinophils % 2.7 Basophils % 0.2 Nucleated RBC % 0 PTT (Actin FS) 35.9 Puncture Site ABG pH ABG pCO2 at Pt Temp ABG pO2 at Pt Temp ABG HCO3 ABG O2 Sat (Measured) ABG O2 Content ABG Base Excess Petey Test O2 Delivery Device Oxygen Flow Rate Vent Rate Mechanical Rate PEEP Pressure Support Vent Sodium Potassium Chloride Carbon Dioxide Anion Gap BUN Creatinine Creat Clearance w eGFR POC Glucometer [phone] Random Glucose Calcium Phosphorus Magnesium Total Bilirubin AST ALT Alkaline Phosphatase Total Protein Albumin HCV Quantitation HCV RNA log copies/mL M.pneumoniae IgG Titer M.pneumoniae IgM Titer 03/30/18 03/30/18 03/30/18 05:30 05:55 06:54 WBC RBC Hgb Hct MCV MCH MCHC RDW Plt Count MPV Absolute Neuts (auto) Neutrophils % Lymphocytes % Monocytes % Eosinophils % Basophils % Nucleated RBC % PTT (Actin FS) Puncture Site Right radial ABG pH 7.38 ABG pCO2 at Pt Temp 44.0 ABG pO2 at Pt Temp 81.5 ABG HCO3 25.3 ABG O2 Sat (Measured) 94.7 ABG O2 Content 13.3 L ABG Base Excess 0.6 Petey Test Positive O2 Delivery Device Mech vent Oxygen Flow Rate 60 Vent Rate 20 Mechanical Rate Yes PEEP 8.0 Pressure Support Vent 400 Sodium 143 Potassium 4.2 Chloride 111 H Carbon Dioxide 27 Anion Gap 5 L BUN 38 H Creatinine 1.1 Creat Clearance w eGFR > 60 POC Glucometer [phone] Random Glucose 269 H Calcium 7.4 L Phosphorus 3.7 Magnesium 3.0 H Total Bilirubin 0.4 AST 12 L ALT 12 L Alkaline Phosphatase 64 Total Protein 4.8 L Albumin 1.4 L HCV Quantitation HCV RNA log copies/mL M.pneumoniae IgG Titer M.pneumoniae IgM Titer Active Medications Generic Name Dose Route Start Last Admin Trade Name Freq PRN Reason Stop Dose Admin Acetaminophen 1,000 mg 03/26/18 19:02 03/29/18 11:59 Ofirmev Injection - IVPB 1,000 mg Q6H PRN Administration FEVER Albuterol/Ipratropium 1 amp 03/26/18 05:47 Duoneb - NEB Q4H PRN SHORTNESS OF BREATH Amino Acids 30 ml 03/27/18 17:30 03/30/18 11:00 Prosource No Carb Liquid Pkt PO 30 ml BID@0800,1730 [facility] Administration Chlorhexidine Gluconate 1 applic 03/26/18 22:00 03/29/18 21:07 Hibiclens For Decolonization - TP 1 applic HS [facility] Administration Chlorhexidine Gluconate 15 ml 03/28/18 10:00 03/30/18 11:00 Peridex - MM 15 ml BID [facility] Administration Enoxaparin Sodium 90 mg 03/29/18 13:15 03/30/18 11:00 Lovenox - SQ 90 mg BID [facility] Administration Propofol 1,000,000 mcg in 100 mls @ 2.409 mls/hr 03/26/18 07:45 03/29/18 08: 00 Diprivan - IVPB 45 mcg/kg/min TITR [facility] 21.677 mls/hr Administration Protocol 5 MCG/KG/MIN Fentanyl 500 mcg/ Dextrose 100 mls @ 5 mls/hr 03/26/18 07:45 03/30/18 09:49 IVPB 75 mcg/hr TITR [facility] 15 mls/hr Administration Protocol 25 MCG/HR Levofloxacin 750 mg in 150 mls @ 150 mls/hr 03/26/18 16:30 03/30/18 10:00 Levaquin 750 Mg Premixed Ivpb - IVPB 150 mls/hr DAILY [facility] Administration Protocol Vancomycin HCl 1,000 mg in 250 mls @ 166.667 mls/hr 03/29/18 16:30 03/30/18 05:00 Vancomycin (Pre-Docked) IVPB 166.667 mls/hr Q12H [facility] Administration Protocol Insulin Aspart 1 vial 03/28/18 08:30 03/30/18 06:57 Novolog Vial Sliding Scale - SQ 6 units Q6HPO [facility] Administration Protocol Insulin Detemir 18 units 03/30/18 08:50 Levemir Vial SQ HS [facility] Methylprednisolone Sodium Succinate 40 mg 03/26/18 13:59 03/30/18 10:03 Solu-Medrol - IVPUSH 03/31/18 23:59 40 mg DAILY [facility] Administration Metoprolol Tartrate 12.5 mg 03/28/18 12:15 03/30/18 10:03 Lopressor - PO 12.5 mg BID [facility] Administration Mupirocin 1 applic 03/26/18 22:00 03/30/18 10:00 Bactroban Ointment (For Decolonization) - NS 03/31/18 22:01 1 applic BID [facility] Administration Pantoprazole Sodium 40 mg 03/26/18 12:00 03/30/18 10:03 Protonix Iv IVPUSH 40 mg BID [facility] Administration ASSESSMENT/PLAN: Patient is a 62 year old male with history of DM, HTN, HLD presents with complaint of shortness of breath for past five days. Sepsis secondary to pneumonia -Chest xray shows white out of left lung. Chest Xray today 03/30/18 resolving left lung field. -Patient received Vancomycin and Zosyn in ED -Now on Levaquin day 6 and Vanco. -Lactic acidosis resolved -Infectious disease Dr Rosenbaum on board -Legionella antigen presumptive positive, check serum Legionella -Urine/Blood cultures negative -Central line removed 03/29/18 -Currently on 50% FiO2. titrate down as tolerated. Maintain MAP > 65% -R Calf abscess Wound culture + for MRSA -Urine Culture + for Strep Agalactiae Group B Acute respiratory failure -Likely secondary to the pneumonia -Vented on volume AC with 50% FiO2, PEEP 8. -F/U ABG -Hold sedation in AM to assess mental status Afib -Patient denies history of Afib, or any cardiac history in past. -CHADsVASC score of 2 -Lovenox 90 bid -Lopressor 12.5 BID -Cardiac monitoring -Cardiology on board -Lopressor 12.5 BID Hypertension Lopressor 12.5 BID FEN -No Fluids -Monitor Electrolytes Glucerna 1.5 @ 20cc/hr. -Target volume: 1L volume -> 1500 kcals, 82g protein, 760ml water. -Feeds + prosource 30ml BID gives: 1620 kcals, 112 g protein Prophylaxis -lovenox 90 bid Disposition -Care per icu team Visit type - Emergency Visit Emergency Visit: Yes ED Registration Date: 03/25/18 Care time: The patient presented to the Emergency Department on the above date and was hospitalized for further evaluation of their emergent condition. - New Patient This patient is new to me today: No - Critical Care Critical Care patient: Yes Total Critical Care Time (in minutes): 35 Critical Care Statement: The care of this patient involved high complexity decision making to prevent further life threatening deterioration of the patient 's condition and/or to evaluate & treat vital organ system(s) failure or risk of failure. - Discharge Referral Referred to [facility] Med P.C.: No
[2018-03-30 12:39] LABS: PLATELET ESTIMATE ADEQUATE
--- NOTE | 2018-03-30 13:46 | PN ---
Teaching Attending Note Name of Resident: Alexx Rabago ATTENDING PHYSICIAN STATEMENT I saw and evaluated the patient. I reviewed the resident's note and discussed the case with the resident. I agree with the resident's findings and plan as documented. SUBJECTIVE: Pt seen and examined in the ICU. Remains intubated, sedated. More tachypneic with higher peak pressures today. Vented on volume assist control with 60% FiO2 , PEEP 8. CXR showing improving aeration of left lung. OBJECTIVE: Vital Signs Period Temp Pulse Resp BP Sys/Santacruz Pulse Ox Last 24 Hr 98.7 F-99.4 F 55-76 2-22 121-145/64-76 96-96 Intake & Output 03/27/18 03/28/18 03/29/18 03/30/18 23:59 23:59 23:59 23:59 Intake Total 3224 5021 3784 490 Output Total 1900 1650 2000 500 Balance 1324 3371 1784 -10 Weight 83.007 kg 85 kg 88.496 kg 87.9 kg Gen: intubated, sedated, tachypneic Heart: RRR Lung: scattered rhonchi Abd: soft, nontender Ext: no edema CBC, BMP 03/30/18 05:30 03/30/18 05:30 Active Medications Acetaminophen (Ofirmev Injection -) 1,000 mg IVPB Q6H PRN PRN Reason: FEVER Last Admin: 03/29/18 11:59 Dose: 1,000 mg Albuterol/Ipratropium (Duoneb -) 1 amp NEB Q4H PRN PRN Reason: SHORTNESS OF BREATH Amino Acids (Prosource No Carb Liquid Pkt) 30 ml PO BID@0800,1730 [facility] Last Admin: 03/30/18 11:00 Dose: 30 ml Chlorhexidine Gluconate (Hibiclens For Decolonization -) 1 applic TP HS [facility] Last Admin: 03/29/18 21:07 Dose: 1 applic Chlorhexidine Gluconate (Peridex -) 15 ml MM BID [facility] Last Admin: 03/30/18 11:00 Dose: 15 ml Enoxaparin Sodium (Lovenox -) 90 mg SQ BID [facility] Last Admin: 03/30/18 11:00 Dose: 90 mg Propofol (Diprivan -) 1,000,000 mcg in 100 mls @ 2.409 mls/hr IVPB TITR [facility]; Protocol Last Admin: 03/29/18 08:00 Dose: 45 mcg/kg/min, 21.677 mls/hr Fentanyl 500 mcg/ Dextrose 100 mls @ 5 mls/hr IVPB TITR [facility]; Protocol Last Admin: 03/30/18 09:49 Dose: 75 mcg/hr, 15 mls/hr Levofloxacin (Levaquin 750 Mg Premixed Ivpb -) 750 mg in 150 mls @ 150 mls/hr IVPB DAILY [facility]; Protocol Last Admin: 03/30/18 10:00 Dose: 150 mls/hr Vancomycin HCl (Vancomycin (Pre-Docked)) 1,000 mg in 250 mls @ 166.667 mls/hr IVPB Q12H [facility]; Protocol Last Admin: 03/30/18 05:00 Dose: 166.667 mls/hr Insulin Aspart (Novolog Vial Sliding Scale -) 1 vial SQ Q6HPO [facility]; Protocol Last Admin: 03/30/18 06:57 Dose: 6 units Insulin Detemir (Levemir Vial) 18 units SQ HS [facility] Methylprednisolone Sodium Succinate (Solu-Medrol -) 40 mg IVPUSH DAILY [facility] Stop: 03/31/18 23:59 Last Admin: 03/30/18 10:03 Dose: 40 mg Metoprolol Tartrate (Lopressor -) 12.5 mg PO BID [facility] Last Admin: 03/30/18 10:03 Dose: 12.5 mg Mupirocin (Bactroban Ointment (For Decolonization) -) 1 applic NS BID [facility] Stop: 03/31/18 22:01 Last Admin: 03/30/18 10:00 Dose: 1 applic Pantoprazole Sodium (Protonix Iv) 40 mg IVPUSH BID [facility] Last Admin: 03/30/18 10:03 Dose: 40 mg ASSESSMENT AND PLAN: Acute Hypoxic Respiratory Failure Legionella Pneumonia Severe Sepsis Acute Kidney Injury Lactic Acidosis ARDS Atrial Fibrillation with RVR HTN DM - continue antibiotics - monitor QTc - rate control - continue anticoagulation - monitor urine output, creatinine - low tidal volume ventilation 6cc/kg/IBW - keep Pplat <30 - taper FiO2 to keep SpO2 >90% - keep PEEP - inhaled bronchodilators - enteral feeds - hold sedation in AM to assess mental status - spontaneous breathing trials as tolerated once mental status improved - DVT/GI prophylaxis critical care time spent in reviewing chart, evaluating patient and formulating plan 35 min
--- NOTE | 2018-03-30 13:52 | PN ---
Teaching Attending Note Name of Resident: Joe Larkin ATTENDING PHYSICIAN STATEMENT I saw and evaluated the patient. I reviewed the resident's note and discussed the case with the resident. I agree with the resident's findings and plan as documented. SUBJECTIVE:intubated/sedated OBJECTIVE: Last Vital Signs Temp Pulse Resp BP Pulse Ox 99.4 F 74 2 L 145/68 96 03/30/18 10:00 03/30/18 12:00 03/30/18 12:10 03/30/18 12:00 03/30/18 10:00 General sedated CV S1 S2 RRR no murmur/rub/gallop Lungs coarse breath sounds Abdomen soft NT/ND obese Extremities no pedal edema ASSESSMENT AND PLAN: 62 Y/O M with PMHx uncontrolled DM, HTN, HLD P/W SOB for 5 days, found to be in hypoxic respiratory failure and sepsis due to PNA, intubated for hypoxic respiratory failure, newly dxed Afib. 1. Acute Hypoxic respiratory failure- due to multilobar PNA. on medrol daily. Intubated in the ER. currently on 60% FiO2. titrate down as tolerated. treat infection. daily sedation vacations. further management per ICU team 2. sepsis due to Multi-lobar PNA- +legionella. afebrile. On Levaquin day 6. chest PT. quant pending/legionella serology pending. HIV negative. ID on board 3. MRSA wound infection- daily dressings on vanco day 6. vanco adjusted yesterday. will repeat level prior to 4th dose (Thu AM). F/u Cx 4. Afib with RVR- new onset. likely induced from sepsis and hypoxia. now in NSR. off amio, [id number] 2. on Hep ggt. echo reviewed. TSH wnl. can have ischemia workup outpatient vs prior to discharge. cardio on board. 5. Prolonged Qtc- avoid QT prolonging agents. Qtc 402 today. 6. DM- uncontrolled. A1c 11.5. increased levemir to 18 units tonight. cont to titrate as needed. ISS and BGM. will need insulin on discharge 7. SONIDO- due to hypoperfusion. now improved. avoid nephrotoxic agents 8. DVT ppx- hep ggt 9. Full code. MICU monitoring The care of this patient involved high complexity decision making to prevent further life threatening deterioration of the patient's condition and/or to evaluate & treat vital organ system(s) failure or risk of failure. 35 mins
--- NOTE | 2018-03-30 14:13 | PN ---
Physical Exam: SUBJECTIVE: Patient seen and examined in the ICU. Remains intubated and sedated. Patient maintaining good MAP/UOP and not on pressers. afebrile. No overnight events per nurse. Vented on volume AC with 50% FiO2, PEEP 8. CXR shows improvement. OBJECTIVE: Vital Signs Period Temp Pulse Resp BP Sys/Santacruz Pulse Ox Last 24 Hr 98.7 F-99.4 F 55-76 2-22 121-145/64-76 96-96 GENERAL: Intubated and sedated, not alert or oriented LUNGS: mechanical breath sounds b/l, very rhonchorous, w/ dec sounds on L side unchanged from previous exam HEART: RRR, S1 S2 no m/r/g ABDOMEN: BS present, soft, NTND Extremities: no peripheral edema noted SKIN: Warm, dry, normal turgor, no rashes or lesions noted Laboratory Results - last 24 hr 03/26/18 03/26/18 03/29/18 10:00 10:00 18:30 WBC RBC Hgb Hct MCV MCH MCHC RDW Plt Count MPV Absolute Neuts (auto) Neutrophils % Neutrophils % (Manual) Band Neutrophils % Lymphocytes % Lymphocytes % (Manual) Monocytes % Monocytes % (Manual) Eosinophils % Eosinophils % (Manual) Basophils % Myelocytes % (Man) Nucleated RBC % Metamyelocytes Platelet Estimate PTT (Actin FS) Puncture Site ABG pH ABG pCO2 at Pt Temp ABG pO2 at Pt Temp ABG HCO3 ABG O2 Sat (Measured) ABG O2 Content ABG Base Excess Petey Test O2 Delivery Device Oxygen Flow Rate Vent Rate Mechanical Rate PEEP Pressure Support Vent Sodium Potassium Chloride Carbon Dioxide Anion Gap BUN Creatinine Creat Clearance w eGFR POC Glucometer [phone] Random Glucose Calcium Phosphorus Magnesium Total Bilirubin AST ALT Alkaline Phosphatase Total Protein Albumin HCV Quantitation Hcv not detected HCV RNA log copies/mL TNP M.pneumoniae IgG Titer <100 M.pneumoniae IgM Titer <770 03/29/18 03/30/18 03/30/18 23:44 05:30 05:30 WBC 22.8 H RBC 3.89 L Hgb 10.2 L Hct 30.8 L MCV 79.0 L MCH 26.1 MCHC 33.0 RDW 14.9 Plt Count 272 MPV 10.6 Absolute Neuts (auto) 19.0 H Neutrophils % 83.0 H Neutrophils % (Manual) 60.0 Band Neutrophils % 8.0 Lymphocytes % 8.6 D Lymphocytes % (Manual) 15.0 D Monocytes % 5.5 Monocytes % (Manual) 6 Eosinophils % 2.7 Eosinophils % (Manual) 2.0 Basophils % 0.2 Myelocytes % (Man) 4 H Nucleated RBC % 0 Metamyelocytes 6 H D Platelet Estimate Adequate PTT (Actin FS) 35.9 Puncture Site ABG pH ABG pCO2 at Pt Temp ABG pO2 at Pt Temp ABG HCO3 ABG O2 Sat (Measured) ABG O2 Content ABG Base Excess Petey Test O2 Delivery Device Oxygen Flow Rate Vent Rate Mechanical Rate PEEP Pressure Support Vent Sodium Potassium Chloride Carbon Dioxide Anion Gap BUN Creatinine Creat Clearance w eGFR POC Glucometer [phone] Random Glucose Calcium Phosphorus Magnesium Total Bilirubin AST ALT Alkaline Phosphatase Total Protein Albumin HCV Quantitation HCV RNA log copies/mL M.pneumoniae IgG Titer M.pneumoniae IgM Titer 03/30/18 03/30/18 03/30/18 05:30 05:55 06:54 WBC RBC Hgb Hct MCV MCH MCHC RDW Plt Count MPV Absolute Neuts (auto) Neutrophils % Neutrophils % (Manual) Band Neutrophils % Lymphocytes % Lymphocytes % (Manual) Monocytes % Monocytes % (Manual) Eosinophils % Eosinophils % (Manual) Basophils % Myelocytes % (Man) Nucleated RBC % Metamyelocytes Platelet Estimate PTT (Actin FS) Puncture Site Right radial ABG pH 7.38 ABG pCO2 at Pt Temp 44.0 ABG pO2 at Pt Temp 81.5 ABG HCO3 25.3 ABG O2 Sat (Measured) 94.7 ABG O2 Content 13.3 L ABG Base Excess 0.6 Petey Test Positive O2 Delivery Device Mech vent Oxygen Flow Rate 60 Vent Rate 20 Mechanical Rate Yes PEEP 8.0 Pressure Support Vent 400 Sodium 143 Potassium 4.2 Chloride 111 H Carbon Dioxide 27 Anion Gap 5 L BUN 38 H Creatinine 1.1 Creat Clearance w eGFR > 60 POC Glucometer [phone] Random Glucose 269 H Calcium 7.4 L Phosphorus 3.7 Magnesium 3.0 H Total Bilirubin 0.4 AST 12 L ALT 12 L Alkaline Phosphatase 64 Total Protein 4.8 L Albumin 1.4 L HCV Quantitation HCV RNA log copies/mL M.pneumoniae IgG Titer M.pneumoniae IgM Titer Active Medications Generic Name Dose Route Start Last Admin Trade Name Freq PRN Reason Stop Dose Admin Acetaminophen 1,000 mg 03/26/18 19:02 03/29/18 11:59 Ofirmev Injection - IVPB 1,000 mg Q6H PRN Administration FEVER Albuterol/Ipratropium 1 amp 03/26/18 05:47 Duoneb - NEB Q4H PRN SHORTNESS OF BREATH Amino Acids 30 ml 03/27/18 17:30 03/30/18 11:00 Prosource No Carb Liquid Pkt PO 30 ml BID@0800,1730 [facility] Administration Chlorhexidine Gluconate 1 applic 03/26/18 22:00 03/29/18 21:07 Hibiclens For Decolonization - TP 1 applic HS [facility] Administration Chlorhexidine Gluconate 15 ml 03/28/18 10:00 03/30/18 11:00 Peridex - MM 15 ml BID [facility] Administration Enoxaparin Sodium 90 mg 03/29/18 13:15 03/30/18 11:00 Lovenox - SQ 90 mg BID [facility] Administration Propofol 1,000,000 mcg in 100 mls @ 2.409 mls/hr 03/26/18 07:45 03/29/18 08: 00 Diprivan - IVPB 45 mcg/kg/min TITR [facility] 21.677 mls/hr Administration Protocol 5 MCG/KG/MIN Fentanyl 500 mcg/ Dextrose 100 mls @ 5 mls/hr 03/26/18 07:45 03/30/18 09:49 IVPB 75 mcg/hr TITR [facility] 15 mls/hr Administration Protocol 25 MCG/HR Levofloxacin 750 mg in 150 mls @ 150 mls/hr 03/26/18 16:30 03/30/18 10:00 Levaquin 750 Mg Premixed Ivpb - IVPB 150 mls/hr DAILY [facility] Administration Protocol Vancomycin HCl 1,000 mg in 250 mls @ 166.667 mls/hr 03/29/18 16:30 03/30/18 05:00 Vancomycin (Pre-Docked) IVPB 166.667 mls/hr Q12H [facility] Administration Protocol Insulin Aspart 1 vial 03/28/18 08:30 03/30/18 06:57 Novolog Vial Sliding Scale - SQ 6 units Q6HPO [facility] Administration Protocol Insulin Detemir 18 units 03/30/18 08:50 Levemir Vial SQ HS [facility] Methylprednisolone Sodium Succinate 40 mg 03/26/18 13:59 03/30/18 10:03 Solu-Medrol - IVPUSH 03/31/18 23:59 40 mg DAILY [facility] Administration Metoprolol Tartrate 12.5 mg 03/28/18 12:15 03/30/18 10:03 Lopressor - PO 12.5 mg BID [facility] Administration Mupirocin 1 applic 03/26/18 22:00 03/30/18 10:00 Bactroban Ointment (For Decolonization) - NS 03/31/18 22:01 1 applic BID [facility] Administration Pantoprazole Sodium 40 mg 03/26/18 12:00 03/30/18 10:03 Protonix Iv IVPUSH 40 mg BID [facility] Administration ASSESSMENT/PLAN: 62 year old male who presented for shortness of breath, fever, chills, malaise and was found to have complete left lung white out on CXR, new onset atrial fibrillation, and DKA. Patient admitted to ICU for further monitoring and management. Found w/ presum pos legionella antigen on abx, intubated and sedated. NEURO: -intubated and sedated PULMONARY #Acute Hypoxic Respiratory failure -Likely secondary to Post obstructive Pneumonia from total white out and mass in the left lung. -CT showing consolidation of entire L lung and post R lung c/w PNA -legionella antigen presumptive positive, serum legionella -c/w vancomycin and levaquin, per ID -monitor QTc, amio was dcd, QTc today 403 -daily ABG -taper FiO2 (60% to 50%) to keep SpO2 >90% -spontaneous breathing trials as tolerated once mental status improved -dc steroids tomorrow -CXR shows improvement of L side -daily CXR INFECTIOUS DISEASE #Sepsis Secondary to Bilateral Pneumonia -afebrile overnight -central line removed 03/29/18, Patient maintaining good MAP and not on pressers. -legionella antigen presumptive positive -c/w vancomycin and levaquin, QTc today 403 -Sputum, Blood cultures neg -ID consult -dc steroids tomorrow CARDIOLOGY #Atrial Fibrillation w/ RVR HR remains ctl 70s -dc Heparin drip for AC -lovenox 90 bid, Cr 1.1 -c/w metop 12.5 bid PO for rate ctl -ECHO RV ystolic 30-40, nl LVSF, nl EF -Cardiology consult -central line removed 03/29/18, Patient maintaining good MAP and not on pressers. pt has 2 good peripheral lines #HTN Monitor CVP 8-12 RENAL [place] maintaining good UOP Endocrine #hyperglycemia ISS levemir 10U HEMATOLOGY -H/H now stable at 10.2 - Hb was dropping. Recent values: 14, 11, 10.6, 10.3, 10.2 - Continue to Trend. Will transfuse if less than 7 #Elevated INR -possible malignancy -Patient denies taking Coumadin, or any blood thinners. Denies alcohol use. -Continue to monitor F/E/N -dc IV LR @83mls/hr, feeds are at goal 35ml -replete prn -enteral feeds Prophylaxis -dc Heparin drip, start lovenox 90 bid for DVT/A-fib -protonix bid Disposition -Full code -ICU monitoring Visit type - Emergency Visit Emergency Visit: Yes ED Registration Date: 03/25/18 Care time: The patient presented to the Emergency Department on the above date and was hospitalized for further evaluation of their emergent condition. - New Patient This patient is new to me today: Yes Date on this admission: 03/30/18 - Critical Care Critical Care patient: Yes Total Critical Care Time (in minutes): 40 Critical Care Statement: The care of this patient involved high complexity decision making to prevent further life threatening deterioration of the patient 's condition and/or to evaluate & treat vital organ system(s) failure or risk of failure.
[2018-03-30] MEDS ORDERED: PROPOFOL 1,000,000 MCG/100 ML VIAL ONE ×2 (15:09→19:28)
--- NOTE | 2018-03-30 16:13 | EKG ---
Test Reason : Blood Pressure : / mmHG Vent. Rate : 070 BPM Atrial Rate : 070 BPM P-R Int : 130 ms QRS Dur : 082 ms QT Int : 374 ms P-R-T Axes : 020 048 065 degrees QTc Int : 403 ms NORMAL SINUS RHYTHM WITH SINUS ARRHYTHMIA NONSPECIFIC T WAVE ABNORMALITY ABNORMAL ECG WHEN COMPARED WITH ECG OF 29-MAR-2018 10:03, PREMATURE ATRIAL COMPLEXES ARE NO LONGER PRESENT Confirmed by MD LUCIANO, SEDA ([id number]) on 03/30/2018 4:13:35 PM Referred By: BRISEIDA CONNER Confirmed By:SEDA WOLF MD
--- NOTE | 2018-03-30 16:15 | EKG ---
Test Reason : Blood Pressure : / mmHG Vent. Rate : 077 BPM Atrial Rate : 077 BPM P-R Int : 130 ms QRS Dur : 076 ms QT Int : 362 ms P-R-T Axes : 027 044 028 degrees QTc Int : 409 ms SINUS RHYTHM WITH PREMATURE ATRIAL COMPLEXES IN A PATTERN OF BIGEMINY LOW VOLTAGE QRS NONSPECIFIC ST AND T WAVE ABNORMALITY ABNORMAL ECG Confirmed by MD ARIANNA, CUONG ([id number]) on 03/30/2018 4:14:58 PM Referred By: DALILA GOINS DR Confirmed By:CUONG KELLER MD
[2018-03-30] MEDS ORDERED: BENZOIN/ALOE VERA/STORAX/TOLU 58 ML BOTTLE ONE (18:21)
[2018-03-30] MEDS: CHLORHEXIDINE GLUCONATE 4% CLEANSER FOR DECOLONIZATION TP SCH (21:11)
[2018-03-31] MEDS: INSULIN SLIDING SCALE (NOVOLOG) 1 VIAL SQ SCH ×4 (01:09→17:13)
[2018-03-31] MEDS: VANCOMYCIN 1 GRAM (PRE-DOCKED) 1,000 MG/250 ML BAG IVPB SCH ×2 (04:15→16:16)
[2018-03-31 06:04] LABS: HEMATOCRIT 30.8 % (35.4-49); HEMOGLOBIN 10.2 GM/dL (11.7-16.9); MCH 26.1 pg (25.7-33.7); MCHC 33.3 g/dl (32.0-35.9); MEAN CELL VOLUME 78.4 fl (80-96); PLATELET COUNT 311 K/MM3 (134-434); RBC 3.92 M/mm3 (4.00-5.60); RDW 14.6 % (11.9-15.9); WHITE BLOOD COUNT 24.6 K/mm3 (4.0-10.0)
[2018-03-31 06:41] LABS: BLOOD UREA NITROGEN 36 mg/dL (7-18); CREATININE 1.1 mg/dL (0.55-1.3); GLUCOSE,RANDOM 273 mg/dL (74-106)
[2018-03-31 06:42] LABS: ALBUMIN 1.4 g/dl (3.4-5.0); ALK PHOS 68 U/L (45-117); ANION GAP 6 MMOL/L (8-16); BILIRUBIN,TOTAL 0.4 mg/dL (0.2-1); CALCIUM 7.6 mg/dL (8.5-10.1); CHLORIDE 110 mmol/L (98-107); CO2 28 mmol/L (21-32); MAGNESIUM 2.6 mg/dL (1.8-2.4); POTASSIUM 4.3 mmol/L (3.5-5.1); SGOT/AST 20 U/L (15-37); SGPT/ALT 14 U/L (13-61); SODIUM 143 mmol/L (136-145); TOT PROT 4.8 g/dl (6.4-8.2)
[2018-03-31 06:43] LABS: ALLENS TEST POSITIVE; ARTERIAL BLD GAS O2 SATURATION 91.9 % (90-98.9); ARTERIAL BLOOD GAS BASE EXCESS 1.5 meq/l (-2-2); ARTERIAL BLOOD GAS PCO2 47.6 mmHg (35-45); ARTERIAL BLOOD GAS PO2 71.4 mmHg (80-100); ARTERIAL BLOOD GAS pH 7.37 (7.35-7.45)
[2018-03-31] MEDS ORDERED: PT OWN MED DRAWER 7, Y5N ONE (08:40)
[2018-03-31] MEDS: AMINO ACIDS/PROTEIN HYDROLYS 30 ML LIQUID.PKT PO SCH ×2 (09:00→17:11)
[2018-03-31] MEDS ORDERED: fentaNYL CITRATE 250 MCG/5 ML VIAL ONE ×3 (09:02→20:51)
[2018-03-31] MEDS: PROPOFOL 1,000,000 MCG/100 ML VIAL IVPB SCH ×2 (09:13→16:20)
[2018-03-31] MEDS: FENTANYL INJECTION 500 MCG in DEXTROSE 5%-WATER - 90 ML IVPB SCH ×2 (09:13→16:21)
[2018-03-31] MEDS: methylPREDNISolone NA SUCC 40 MG/1 ML VIAL IVPUSH SCH (09:14)
[2018-03-31] MEDS: PANTOPRAZOLE SODIUM 40 MG VIAL IVPUSH SCH ×2 (09:14→22:05)
[2018-03-31] MEDS: METOPROLOL TARTRATE 25 MG TABLET (FP) PO SCH ×2 (09:15→22:05)
[2018-03-31] MEDS: CHLORHEXIDINE GLUCONATE 0.12% 15ML CUP MM SCH ×2 (09:17→22:05)
[2018-03-31] MEDS: ENOXAPARIN NA (PORCINE) 100 MG/1 ML DISP.SYRIN SQ SCH (09:18)
--- NOTE | 2018-03-31 09:22 | PN ---
Progress Note (short form) - Note Progress Note: Chief Complaint: resp failure History of Present Illness: intubated/sedated Current Medications Acetaminophen (Ofirmev Injection -) 1,000 mg IVPB Q6H PRN PRN Reason: FEVER Last Admin: 03/29/18 11:59 Dose: 1,000 mg Albuterol/Ipratropium (Duoneb -) 1 amp NEB Q4H PRN PRN Reason: SHORTNESS OF BREATH Amino Acids (Prosource No Carb Liquid Pkt) 30 ml PO BID@0800,1730 [facility] Last Admin: 03/31/18 09:00 Dose: 30 ml Chlorhexidine Gluconate (Hibiclens For Decolonization -) 1 applic TP HS [facility] Last Admin: 03/30/18 21:11 Dose: 1 applic Chlorhexidine Gluconate (Peridex -) 15 ml MM BID [facility] Last Admin: 03/31/18 09:17 Dose: 15 ml Enoxaparin Sodium (Lovenox -) 90 mg SQ BID [facility] Last Admin: 03/31/18 09:18 Dose: 90 mg Propofol (Diprivan -) 1,000,000 mcg in 100 mls @ 2.409 mls/hr IVPB TITR [facility]; Protocol Last Admin: 03/31/18 09:13 Dose: 40 mcg/kg/min, 19.269 mls/hr Fentanyl 500 mcg/ Dextrose 100 mls @ 5 mls/hr IVPB TITR [facility]; Protocol Last Admin: 03/31/18 09:13 Dose: 100 mcg/hr, 20 mls/hr Levofloxacin (Levaquin 750 Mg Premixed Ivpb -) 750 mg in 150 mls @ 150 mls/hr IVPB DAILY [facility]; Protocol Last Admin: 03/31/18 09:13 Dose: 150 mls/hr Vancomycin HCl (Vancomycin (Pre-Docked)) 1,000 mg in 250 mls @ 166.667 mls/hr IVPB Q12H [facility]; Protocol Last Admin: 03/31/18 04:15 Dose: 166.667 mls/hr Insulin Aspart (Novolog Vial Sliding Scale -) 1 vial SQ Q6HPO [facility]; Protocol Last Admin: 03/31/18 06:34 Dose: 6 units Insulin Detemir (Levemir Vial) 18 units SQ HS [facility] Last Admin: 03/30/18 21:37 Dose: 18 units Methylprednisolone Sodium Succinate (Solu-Medrol -) 40 mg IVPUSH DAILY [facility] Stop: 03/31/18 23:59 Last Admin: 03/31/18 09:14 Dose: 40 mg Metoprolol Tartrate (Lopressor -) 12.5 mg PO BID [facility] Last Admin: 03/31/18 09:15 Dose: 12.5 mg Mupirocin (Bactroban Ointment (For Decolonization) -) 1 applic NS BID [facility] Stop: 03/31/18 22:01 Last Admin: 03/30/18 21:10 Dose: 1 applic Pantoprazole Sodium (Protonix Iv) 40 mg IVPUSH BID [facility] Last Admin: 03/31/18 09:14 Dose: 40 mg - Objective Vital Signs: Vital Signs Period Temp Pulse Resp BP Sys/Santacruz Pulse Ox Last 24 Hr 98.1 F-99.6 F 56-76 15-20 127-153/63-74 94-96 Constitutional: Yes: No Distress, Calm, intubated Eyes: No: Sclera Icterus HENT: No: Nasal Congestion Cardiovascular: Yes: Regular Rate and Rhythm, S1, S2, Other (PMI non diplaced). No: Gallop, Murmur Respiratory: Yes: +rhonchi. No: Accessory Muscle Use Gastrointestinal: Yes: Normal Bowel Sounds, Soft. No: Tenderness Musculoskeletal: Yes: Other (No kyphosis) Extremities: No: Cold Edema: No Integumentary: No: Jaundice Neurological: No: Alert, Oriented (x3) Psychiatric: No: Agitated Assessment/Plan ct chest: b/l pna ecg: afib vr 154, no ischemic changes, nl qtc ecg 03/30 sinus, QTc 403 (stable) echo 03/18: nl LVSF. nl RV. nl LA. mild MR/TR. RVSP 30-40 tele: sinus a/p: 62 m hx dm, hld, htn here with fever, leg wound. sepsis, PNA, acute resp failure: -has sahu abscess as well as b/l pna -cont abx per ID/crit care -vent management per ICU team -no signs chf or acs -no pressor requirement at present, bp stable afib, rvr: -unknown if new onset -in er started on dilt gtt and amio gtt-->sinus -cont metoprolol -chadsvasc 2 warrants ac, on lovenox anemia: -hgb down 14 to 10, stable x few days -on lovenox -observe trend SONIDO: -bun/creat up 03/27, ? intravasc vol depletion in setting of DKA -improved with IVF dm: -on insulin -per crit care htn: -bp soft here initially, home meds held, stable on metoprolol
[2018-03-31] MEDS ORDERED: INSULIN (LEVEMIR) 100 UNITS/ML UNITS SQ ONE (09:35)
--- NOTE | 2018-03-31 09:53 | PN ---
Progress Note, Physician History of Present Illness: Sedated on ventilator No acute distress Afebrile WBC remains elevated on steroids 24K FiO2 50% - Current Medication List Current Medications: Active Medications Acetaminophen (Ofirmev Injection -) 1,000 mg IVPB Q6H PRN PRN Reason: FEVER Last Admin: 03/29/18 11:59 Dose: 1,000 mg Albuterol/Ipratropium (Duoneb -) 1 amp NEB Q4H PRN PRN Reason: SHORTNESS OF BREATH Amino Acids (Prosource No Carb Liquid Pkt) 30 ml PO BID@0800,1730 [facility] Last Admin: 03/31/18 09:00 Dose: 30 ml Chlorhexidine Gluconate (Hibiclens For Decolonization -) 1 applic TP HS [facility] Last Admin: 03/30/18 21:11 Dose: 1 applic Chlorhexidine Gluconate (Peridex -) 15 ml MM BID [facility] Last Admin: 03/31/18 09:17 Dose: 15 ml Enoxaparin Sodium (Lovenox -) 90 mg SQ BID [facility] Last Admin: 03/31/18 09:18 Dose: 90 mg Propofol (Diprivan -) 1,000,000 mcg in 100 mls @ 2.409 mls/hr IVPB TITR [facility]; Protocol Last Admin: 03/31/18 09:13 Dose: 40 mcg/kg/min, 19.269 mls/hr Fentanyl 500 mcg/ Dextrose 100 mls @ 5 mls/hr IVPB TITR [facility]; Protocol Last Admin: 03/31/18 09:13 Dose: 100 mcg/hr, 20 mls/hr Levofloxacin (Levaquin 750 Mg Premixed Ivpb -) 750 mg in 150 mls @ 150 mls/hr IVPB DAILY [facility]; Protocol Last Admin: 03/31/18 09:13 Dose: 150 mls/hr Vancomycin HCl (Vancomycin (Pre-Docked)) 1,000 mg in 250 mls @ 166.667 mls/hr IVPB Q12H [facility]; Protocol Last Admin: 03/31/18 04:15 Dose: 166.667 mls/hr Insulin Aspart (Novolog Vial Sliding Scale -) 1 vial SQ Q6HPO [facility]; Protocol Last Admin: 03/31/18 06:34 Dose: 6 units Insulin Detemir (Levemir Vial) 18 units SQ ONCE ONE Stop: 03/31/18 09:36 Insulin Detemir (Levemir Vial) 18 units SQ BID [facility] Methylprednisolone Sodium Succinate (Solu-Medrol -) 40 mg IVPUSH DAILY [facility] Stop: 03/31/18 23:59 Last Admin: 03/31/18 09:14 Dose: 40 mg Metoprolol Tartrate (Lopressor -) 12.5 mg PO BID [facility] Last Admin: 03/31/18 09:15 Dose: 12.5 mg Mupirocin (Bactroban Ointment (For Decolonization) -) 1 applic NS BID [facility] Stop: 03/31/18 22:01 Last Admin: 03/30/18 21:10 Dose: 1 applic Pantoprazole Sodium (Protonix Iv) 40 mg IVPUSH BID [facility] Last Admin: 03/31/18 09:14 Dose: 40 mg - Objective Vital Signs: Vital Signs Temperature 98.5 F 03/31/18 08:00 Pulse Rate 56 L 03/31/18 08:00 Respiratory Rate 18 03/31/18 08:00 Blood Pressure 133/65 03/31/18 08:00 O2 Sat by Pulse Oximetry (%) 96 03/31/18 07:30 Constitutional: Yes: No Distress Cardiovascular: Yes: Regular Rate and Rhythm, S1, S2 Respiratory: Yes: Mechanically Ventilated Gastrointestinal: Yes: Normal Bowel Sounds, Soft, Abdomen, Obese. No: Tenderness Edema: Yes Labs: CBC, BMP 03/31/18 05:30 03/31/18 05:30 INR, PTT INR 1.51 (0.83-1.09) H 03/26/18 05:13 Assessment/Plan Multilobar legionella pneumonia Respiratory failure Sepsis secondary to lung source Leukocytosis lactic acidosis + Wound c/s MRSA Continue levaquin/ vancomycin Ventilatory support Contact precautions for + wound c/s MRSA
--- NOTE | 2018-03-31 10:06 | PN ---
Physical Exam: SUBJECTIVE: Patient seen and examined at bedside. Remains off pressors. Receiving feeds via NG tube. Vented on 40% fio2, PEEP of 8. No acute events overnight. Afebrile overnight. OBJECTIVE: Vital Signs Period Temp Pulse Resp BP Sys/Santacruz Pulse Ox Last 24 Hr 98.1 F-99.6 F 56-76 15-20 127-153/63-74 94-96 GENERAL: Intubated and sedated. HEAD: NC/AT LUNGS: Diffuse rhonchi. HEART: Regular rate and rhythm, S1, S2 without murmur, rub or gallop. ABDOMEN: ND BS+. EXTREMITIES:No CCE SKIN: Warm, dry, normal turgor, no rashes or lesions noted Laboratory Results - last 24 hr 03/30/18 03/30/18 03/30/18 05:30 14:29 17:28 WBC RBC Hgb Hct MCV MCH MCHC RDW Plt Count MPV Neutrophils % (Manual) 60.0 Band Neutrophils % 8.0 Lymphocytes % (Manual) 15.0 D Monocytes % (Manual) 6 Eosinophils % (Manual) 2.0 Myelocytes % (Man) 4 H Metamyelocytes 6 H D Platelet Estimate Adequate PTT (Actin FS) Anticoagulation Therapy ABG pH ABG pCO2 at Pt Temp ABG pO2 at Pt Temp ABG HCO3 ABG O2 Sat (Measured) ABG O2 Content ABG Base Excess Petey Test O2 Delivery Device Oxygen Flow Rate Vent Mode Vent Rate Mechanical Rate PEEP Pressure Support Vent Sodium Potassium Chloride Carbon Dioxide Anion Gap BUN Creatinine Creat Clearance w eGFR POC Glucometer [phone] Random Glucose Calcium Phosphorus Magnesium Total Bilirubin AST ALT Alkaline Phosphatase Total Protein Albumin 03/30/18 03/31/18 03/31/18 21:36 05:30 05:30 WBC 24.6 H RBC 3.92 L Hgb 10.2 L Hct 30.8 L MCV 78.4 L MCH 26.1 MCHC 33.3 RDW 14.6 Plt Count 311 MPV 10.0 Neutrophils % (Manual) Band Neutrophils % Lymphocytes % (Manual) Monocytes % (Manual) Eosinophils % (Manual) Myelocytes % (Man) Metamyelocytes Platelet Estimate PTT (Actin FS) 37.2 H Anticoagulation Therapy ABG pH ABG pCO2 at Pt Temp ABG pO2 at Pt Temp ABG HCO3 ABG O2 Sat (Measured) ABG O2 Content ABG Base Excess Petey Test O2 Delivery Device Oxygen Flow Rate Vent Mode Vent Rate Mechanical Rate PEEP Pressure Support Vent Sodium Potassium Chloride Carbon Dioxide Anion Gap BUN Creatinine Creat Clearance w eGFR POC Glucometer [phone] Random Glucose Calcium Phosphorus Magnesium Total Bilirubin AST ALT Alkaline Phosphatase Total Protein Albumin 03/31/18 03/31/18 05:30 06:10 WBC RBC Hgb Hct MCV MCH MCHC RDW Plt Count MPV Neutrophils % (Manual) Band Neutrophils % Lymphocytes % (Manual) Monocytes % (Manual) Eosinophils % (Manual) Myelocytes % (Man) Metamyelocytes Platelet Estimate PTT (Actin FS) Anticoagulation Therapy No Result Required. ABG pH 7.37 ABG pCO2 at Pt Temp 47.6 H ABG pO2 at Pt Temp 71.4 L ABG HCO3 26.9 H ABG O2 Sat (Measured) 91.9 ABG O2 Content 15.6 ABG Base Excess 1.5 Petey Test Positive O2 Delivery Device Mech vent Oxygen Flow Rate 50 Vent Mode No Result Required. Vent Rate 14 Mechanical Rate No Result Required. PEEP 8.0 Pressure Support Vent 400 Sodium 143 Potassium 4.3 Chloride 110 H Carbon Dioxide 28 Anion Gap 6 L BUN 36 H Creatinine 1.1 Creat Clearance w eGFR > 60 POC Glucometer Random Glucose 273 H Calcium 7.6 L Phosphorus 4.0 Magnesium 2.6 H Total Bilirubin 0.4 AST 20 ALT 14 Alkaline Phosphatase 68 Total Protein 4.8 L Albumin 1.4 L Active Medications Generic Name Dose Route Start Last Admin Trade Name Freq PRN Reason Stop Dose Admin Acetaminophen 1,000 mg 03/26/18 19:02 03/29/18 11:59 Ofirmev Injection - IVPB 1,000 mg Q6H PRN Administration FEVER Albuterol/Ipratropium 1 amp 03/26/18 05:47 Duoneb - NEB Q4H PRN SHORTNESS OF BREATH Amino Acids 30 ml 03/27/18 17:30 03/31/18 09:00 Prosource No Carb Liquid Pkt PO 30 ml BID@0800,1730 [facility] Administration Chlorhexidine Gluconate 1 applic 03/26/18 22:00 03/30/18 21:11 Hibiclens For Decolonization - TP 1 applic HS [facility] Administration Chlorhexidine Gluconate 15 ml 03/28/18 10:00 03/31/18 09:17 Peridex - MM 15 ml BID [facility] Administration Enoxaparin Sodium 90 mg 03/29/18 13:15 03/31/18 09:18 Lovenox - SQ 90 mg BID [facility] Administration Propofol 1,000,000 mcg in 100 mls @ 2.409 mls/hr 03/26/18 07:45 03/31/18 09: 13 Diprivan - IVPB 40 mcg/kg/min TITR [facility] 19.269 mls/hr Administration Protocol 5 MCG/KG/MIN Fentanyl 500 mcg/ Dextrose 100 mls @ 5 mls/hr 03/26/18 07:45 03/31/18 09:13 IVPB 100 mcg/hr TITR [facility] 20 mls/hr Administration Protocol 25 MCG/HR Levofloxacin 750 mg in 150 mls @ 150 mls/hr 03/26/18 16:30 03/31/18 09:13 Levaquin 750 Mg Premixed Ivpb - IVPB 150 mls/hr DAILY [facility] Administration Protocol Vancomycin HCl 1,000 mg in 250 mls @ 166.667 mls/hr 03/29/18 16:30 03/31/18 04:15 Vancomycin (Pre-Docked) IVPB 166.667 mls/hr Q12H [facility] Administration Protocol Insulin Aspart 1 vial 03/28/18 08:30 03/31/18 06:34 Novolog Vial Sliding Scale - SQ 6 units Q6HPO [facility] Administration Protocol Insulin Detemir 18 units 03/31/18 09:35 Levemir Vial SQ 03/31/18 09:36 ONCE ONE Insulin Detemir 18 units 03/31/18 22:00 Levemir Vial SQ BID [facility] Methylprednisolone Sodium Succinate 40 mg 03/26/18 13:59 03/31/18 09:14 Solu-Medrol - IVPUSH 03/31/18 23:59 40 mg DAILY [facility] Administration Metoprolol Tartrate 12.5 mg 03/28/18 12:15 03/31/18 09:15 Lopressor - PO 12.5 mg BID [facility] Administration Mupirocin 1 applic 03/26/18 22:00 03/30/18 21:10 Bactroban Ointment (For Decolonization) - NS 03/31/18 22:01 1 applic BID [facility] Administration Pantoprazole Sodium 40 mg 03/26/18 12:00 03/31/18 09:14 Protonix Iv IVPUSH 40 mg BID [facility] Administration ASSESSMENT/PLAN: Patient is a 62 year old male with history of DM, HTN, HLD presents with complaint of shortness of breath for past five days. # Sepsis secondary to Pneumonia/Legionella Pneumonia -Chest xray 03/31/18--> Congestive changes. Left infiltrate with fluid. Prominent mediastinum -Patient received Vancomycin and Zosyn in ED -Now on Levaquin day 7 and Vanco. -Lactic acidosis resolved -Infectious disease Dr Rosenbaum on board -Urine/Blood cultures negative -Central line removed 03/29/18 -Currently on 50% FiO2. titrate down as tolerated. Maintain MAP > 65% -R Calf abscess Wound culture + for MRSA -Urine Culture + for Strep Agalactiae Group B # Acute respiratory failure -Likely secondary to the pneumonia -Vented on volume AC with 40% FiO2, PEEP 8. -F/U ABG -fio2 decreased to 40% -Hold sedation in AM to assess mental status # Afib -Patient denies history of Afib, or any cardiac history in past. -CHADsVASC score of 2 -Lovenox 90 bid -Cardiac monitoring -Cardiology on board -Lopressor 12.5 BID # Hypertension Lopressor 12.5 BID #IDDM -Levemir 18 U SQ BID -A1c 11.5% # FEN -No Fluids -Monitor Electrolytes Glucerna 1.5 @ 20cc/hr. -Target volume: 1L volume -> 1500 kcals, 82g protein, 760ml water. -Feeds + prosource 30ml BID gives: 1620 kcals, 112 g protein # Prophylaxis -lovenox 90 bid # Disposition -Care per icu team Visit type - Emergency Visit Emergency Visit: Yes ED Registration Date: 03/25/18 Care time: The patient presented to the Emergency Department on the above date and was hospitalized for further evaluation of their emergent condition. - New Patient This patient is new to me today: No - Critical Care Critical Care patient: Yes Total Critical Care Time (in minutes): 35 Critical Care Statement: The care of this patient involved high complexity decision making to prevent further life threatening deterioration of the patient 's condition and/or to evaluate & treat vital organ system(s) failure or risk of failure. - Discharge Referral Referred to [facility] Med P.C.: No
[2018-03-31] MEDS: MUPIROCIN 2% TOPICAL OINTMENT FOR DECOLONIZATION NS SCH ×2 (10:25→23:00)
[2018-03-31] MEDS ORDERED: FUROSEMIDE 40 MG/4 ML INJECTABLE VIAL IVPUSH ONE (11:55)
--- NOTE | 2018-03-31 13:19 | PN ---
Teaching Attending Note Name of Resident: Joe Larkin ATTENDING PHYSICIAN STATEMENT I saw and evaluated the patient. I reviewed the resident's note and discussed the case with the resident. I agree with the resident's findings and plan as documented. SUBJECTIVE: OBJECTIVE: Last Vital Signs Temp Pulse Resp BP Pulse Ox 98.5 F 56 L 17 143/67 91 L 03/31/18 10:00 03/31/18 12:00 03/31/18 12:28 03/31/18 12:00 03/31/18 10:00 Intake & Output 03/28/18 03/29/18 03/30/18 03/31/18 23:59 23:59 23:59 23:59 Intake Total 5021 3784 1710 1342 Output Total 1650 2000 1900 500 Balance 3371 1784 -190 842 Weight 187 lb 6.287 oz 195 lb 1.6 oz 193 lb 12.581 oz 193 lb 12.581 oz General sedated CV S1 S2 RRR no murmur/rub/gallop Lungs coarse breath sounds Abdomen soft NT/ND obese Extremities no pedal edema ASSESSMENT AND PLAN: 62 Y/O M with PMHx uncontrolled DM, HTN, HLD P/W SOB for 5 days, found to be in hypoxic respiratory failure and sepsis due to PNA, intubated for hypoxic respiratory failure, newly dxed Afib. 1. Acute Hypoxic respiratory failure- due to multilobar PNA. on medrol daily. Intubated in the ER. currently on 60% FiO2. titrate down as tolerated. treat infection. daily sedation vacations. further management per ICU team 2. sepsis due to Multi-lobar PNA- +legionella. afebrile. On Levaquin day 6. chest PT. quant pending/legionella serology pending. HIV negative. ID on board 3. MRSA wound infection- daily dressings on vanco day 6. vanco adjusted yesterday. will repeat level prior to 4th dose (Thu AM). F/u Cx 4. Afib with RVR- new onset. likely induced from sepsis and hypoxia. now in NSR. off amio, [id number] 2. on Hep ggt. echo reviewed. TSH wnl. can have ischemia workup outpatient vs prior to discharge. cardio on board. 5. Prolonged Qtc- avoid QT prolonging agents. Qtc 402 today. 6. DM- uncontrolled. A1c 11.5. increased levemir to 18 units tonight. cont to titrate as needed. ISS and BGM. will need insulin on discharge 7. SONIDO- due to hypoperfusion. now improved. avoid nephrotoxic agents 8. DVT ppx- hep ggt 9. Full code. MICU monitoring The care of this patient involved high complexity decision making to prevent further life threatening deterioration of the patient's condition and/or to evaluate & treat vital organ system(s) failure or risk of failure. 35 mins
--- NOTE | 2018-03-31 13:32 | PN ---
Teaching Attending Note Name of Resident: Alexx Rabago ATTENDING PHYSICIAN STATEMENT I saw and evaluated the patient. I reviewed the resident's note and discussed the case with the resident. I agree with the resident's findings and plan as documented. SUBJECTIVE: Pt seen and examined in the ICU. Remains intubated, sedated. Vented on volume assist control with 50% FiO2, PEEP 8. OBJECTIVE: Vital Signs Period Temp Pulse Resp BP Sys/Santacruz Pulse Ox Last 24 Hr 98.1 F-99.6 F 54-74 15-20 127-153/63-74 91-96 Intake & Output 03/28/18 03/29/18 03/30/18 03/31/18 23:59 23:59 23:59 23:59 Intake Total 5021 3784 1710 1342 Output Total 1650 2000 1900 500 Balance 3371 1784 -190 842 Weight 85 kg 88.496 kg 87.9 kg 87.9 kg Gen: intubated, sedated Heart: RRR Lung: scattered rhonchi Abd: soft, nontender Ext: trace edema CBC, BMP 03/31/18 05:30 03/31/18 05:30 Active Medications Acetaminophen (Ofirmev Injection -) 1,000 mg IVPB Q6H PRN PRN Reason: FEVER Last Admin: 03/29/18 11:59 Dose: 1,000 mg Albuterol/Ipratropium (Duoneb -) 1 amp NEB Q4H PRN PRN Reason: SHORTNESS OF BREATH Amino Acids (Prosource No Carb Liquid Pkt) 30 ml PO BID@0800,1730 [facility] Last Admin: 03/31/18 09:00 Dose: 30 ml Chlorhexidine Gluconate (Hibiclens For Decolonization -) 1 applic TP HS [facility] Last Admin: 03/30/18 21:11 Dose: 1 applic Chlorhexidine Gluconate (Peridex -) 15 ml MM BID [facility] Last Admin: 03/31/18 09:17 Dose: 15 ml Enoxaparin Sodium (Lovenox -) 90 mg SQ BID [facility] Last Admin: 03/31/18 09:18 Dose: 90 mg Propofol (Diprivan -) 1,000,000 mcg in 100 mls @ 2.409 mls/hr IVPB TITR [facility]; Protocol Last Admin: 03/31/18 09:13 Dose: 40 mcg/kg/min, 19.269 mls/hr Fentanyl 500 mcg/ Dextrose 100 mls @ 5 mls/hr IVPB TITR [facility]; Protocol Last Admin: 03/31/18 09:13 Dose: 100 mcg/hr, 20 mls/hr Levofloxacin (Levaquin 750 Mg Premixed Ivpb -) 750 mg in 150 mls @ 150 mls/hr IVPB DAILY [facility]; Protocol Last Admin: 03/31/18 09:13 Dose: 150 mls/hr Vancomycin HCl (Vancomycin (Pre-Docked)) 1,000 mg in 250 mls @ 166.667 mls/hr IVPB Q12H [facility]; Protocol Last Admin: 03/31/18 04:15 Dose: 166.667 mls/hr Insulin Aspart (Novolog Vial Sliding Scale -) 1 vial SQ Q6HPO [facility]; Protocol Last Admin: 03/31/18 11:54 Dose: 8 units Insulin Detemir (Levemir Vial) 18 units SQ BID@0700,2200 [facility] Lactobacillus Acidophilus (Bacid -) 1 tab PO DAILY [facility] Metoprolol Tartrate (Lopressor -) 12.5 mg PO BID [facility] Last Admin: 03/31/18 09:15 Dose: 12.5 mg Mupirocin (Bactroban Ointment (For Decolonization) -) 1 applic NS BID [facility] Stop: 03/31/18 22:01 Last Admin: 03/31/18 10:25 Dose: 1 applic Pantoprazole Sodium (Protonix Iv) 40 mg IVPUSH BID [facility] Last Admin: 03/31/18 09:14 Dose: 40 mg ASSESSMENT AND PLAN: Acute Hypoxic Respiratory Failure Legionella Pneumonia Severe Sepsis Acute Kidney Injury Lactic Acidosis ARDS Atrial Fibrillation with RVR HTN DM - continue antibiotics - monitor QTc - rate control - continue anticoagulation - lasix today - monitor urine output, creatinine - low tidal volume ventilation 6cc/kg/IBW - keep Pplat <30 - taper FiO2 to keep SpO2 >90% - keep PEEP - inhaled bronchodilators - enteral feeds - hold sedation in AM to assess mental status - spontaneous breathing trials as tolerated once mental status improved - DVT/GI prophylaxis critical care time spent in reviewing chart, evaluating patient and formulating plan 35 min
[2018-03-31] MEDS: LACTOBACILLUS ACIDOPHILUS 1 TABLET PO SCH (13:37)
--- NOTE | 2018-03-31 13:51 | PN ---
Physical Exam: SUBJECTIVE: Patient seen and examined in the ICU. Remains intubated and sedated. Patient maintaining good MAP/UOP and not on pressers. afebrile. No overnight events per nurse. Vented on volume AC with 50% FiO2, PEEP 8. CXR shows improvement. Having soft BMs OBJECTIVE: Vital Signs Period Temp Pulse Resp BP Sys/Santacruz Pulse Ox Last 24 Hr 98.1 F-99.6 F 54-74 15-20 127-153/63-74 91-96 GENERAL: Intubated and sedated, not alert or oriented LUNGS: mechanical breath sounds b/l, very rhonchorous, w/ dec sounds on L side unchanged from previous exam HEART: RRR, S1 S2 no m/r/g ABDOMEN: BS present, soft, NTND Extremities: no peripheral edema noted SKIN: Warm, dry, normal turgor, no rashes or lesions noted Laboratory Results - last 24 hr 03/30/18 03/30/18 03/30/18 14:29 17:28 21:36 WBC RBC Hgb Hct MCV MCH MCHC RDW Plt Count MPV PTT (Actin FS) Anticoagulation Therapy Puncture Site ABG pH ABG pCO2 at Pt Temp ABG pO2 at Pt Temp ABG HCO3 ABG O2 Sat (Measured) ABG O2 Content ABG Base Excess Petey Test O2 Delivery Device Oxygen Flow Rate Vent Mode Vent Rate Mechanical Rate PEEP Pressure Support Vent Sodium Potassium Chloride Carbon Dioxide Anion Gap BUN Creatinine Creat Clearance w eGFR POC Glucometer 398.09452 377.50729 220.80784 Random Glucose Calcium Phosphorus Magnesium Total Bilirubin AST ALT Alkaline Phosphatase Total Protein Albumin 03/31/18 03/31/18 03/31/18 00:57 05:30 05:30 WBC 24.6 H RBC 3.92 L Hgb 10.2 L Hct 30.8 L MCV 78.4 L MCH 26.1 MCHC 33.3 RDW 14.6 Plt Count 311 MPV 10.0 PTT (Actin FS) 37.2 H Anticoagulation Therapy Puncture Site ABG pH ABG pCO2 at Pt Temp ABG pO2 at Pt Temp ABG HCO3 ABG O2 Sat (Measured) ABG O2 Content ABG Base Excess Petey Test O2 Delivery Device Oxygen Flow Rate Vent Mode Vent Rate Mechanical Rate PEEP Pressure Support Vent Sodium Potassium Chloride Carbon Dioxide Anion Gap BUN Creatinine Creat Clearance w eGFR POC Glucometer [phone] Random Glucose Calcium Phosphorus Magnesium Total Bilirubin AST ALT Alkaline Phosphatase Total Protein Albumin 03/31/18 03/31/18 03/31/18 05:30 06:10 10:35 WBC RBC Hgb Hct MCV MCH MCHC RDW Plt Count MPV PTT (Actin FS) Anticoagulation Therapy No Result Required. Puncture Site Left radial ABG pH 7.37 ABG pCO2 at Pt Temp 47.6 H ABG pO2 at Pt Temp 71.4 L ABG HCO3 26.9 H ABG O2 Sat (Measured) 91.9 ABG O2 Content 15.6 ABG Base Excess 1.5 Petey Test Positive O2 Delivery Device Mech vent Oxygen Flow Rate 50 Vent Mode No Result Required. Vent Rate 14 Mechanical Rate No Result Required. PEEP 8.0 Pressure Support Vent 400 Sodium 143 Potassium 4.3 Chloride 110 H Carbon Dioxide 28 Anion Gap 6 L BUN 36 H Creatinine 1.1 Creat Clearance w eGFR > 60 POC Glucometer [phone] Random Glucose 273 H Calcium 7.6 L Phosphorus 4.0 Magnesium 2.6 H Total Bilirubin 0.4 AST 20 ALT 14 Alkaline Phosphatase 68 Total Protein 4.8 L Albumin 1.4 L 03/31/18 11:53 WBC RBC Hgb Hct MCV MCH MCHC RDW Plt Count MPV PTT (Actin FS) Anticoagulation Therapy Puncture Site ABG pH ABG pCO2 at Pt Temp ABG pO2 at Pt Temp ABG HCO3 ABG O2 Sat (Measured) ABG O2 Content ABG Base Excess Petey Test O2 Delivery Device Oxygen Flow Rate Vent Mode Vent Rate Mechanical Rate PEEP Pressure Support Vent Sodium Potassium Chloride Carbon Dioxide Anion Gap BUN Creatinine Creat Clearance w eGFR POC Glucometer [phone] Random Glucose Calcium Phosphorus Magnesium Total Bilirubin AST ALT Alkaline Phosphatase Total Protein Albumin Active Medications Generic Name Dose Route Start Last Admin Trade Name Freq PRN Reason Stop Dose Admin Acetaminophen 1,000 mg 03/26/18 19:02 03/29/18 11:59 Ofirmev Injection - IVPB 1,000 mg Q6H PRN Administration FEVER Albuterol/Ipratropium 1 amp 03/26/18 05:47 Duoneb - NEB Q4H PRN SHORTNESS OF BREATH Amino Acids 30 ml 03/27/18 17:30 03/31/18 09:00 Prosource No Carb Liquid Pkt PO 30 ml BID@0800,1730 [facility] Administration Chlorhexidine Gluconate 1 applic 03/26/18 22:00 03/30/18 21:11 Hibiclens For Decolonization - TP 1 applic HS [facility] Administration Chlorhexidine Gluconate 15 ml 03/28/18 10:00 03/31/18 09:17 Peridex - MM 15 ml BID [facility] Administration Enoxaparin Sodium 90 mg 03/29/18 13:15 03/31/18 09:18 Lovenox - SQ 90 mg BID [facility] Administration Propofol 1,000,000 mcg in 100 mls @ 2.409 mls/hr 03/26/18 07:45 03/31/18 09: 13 Diprivan - IVPB 40 mcg/kg/min TITR [facility] 19.269 mls/hr Administration Protocol 5 MCG/KG/MIN Fentanyl 500 mcg/ Dextrose 100 mls @ 5 mls/hr 03/26/18 07:45 03/31/18 09:13 IVPB 100 mcg/hr TITR [facility] 20 mls/hr Administration Protocol 25 MCG/HR Levofloxacin 750 mg in 150 mls @ 150 mls/hr 03/26/18 16:30 03/31/18 09:13 Levaquin 750 Mg Premixed Ivpb - IVPB 150 mls/hr DAILY [facility] Administration Protocol Vancomycin HCl 1,000 mg in 250 mls @ 166.667 mls/hr 03/29/18 16:30 03/31/18 04:15 Vancomycin (Pre-Docked) IVPB 166.667 mls/hr Q12H [facility] Administration Protocol Insulin Aspart 1 vial 03/28/18 08:30 03/31/18 11:54 Novolog Vial Sliding Scale - SQ 8 units Q6HPO [facility] Administration Protocol Insulin Detemir 18 units 03/31/18 22:00 Levemir Vial SQ BID@0700,2200 [facility] Lactobacillus Acidophilus 1 tab 03/31/18 12:00 03/31/18 13:37 Bacid - PO 1 tab DAILY [facility] Administration Metoprolol Tartrate 12.5 mg 03/28/18 12:15 03/31/18 09:15 Lopressor - PO 12.5 mg BID [facility] Administration Mupirocin 1 applic 03/26/18 22:00 03/31/18 10:25 Bactroban Ointment (For Decolonization) - NS 03/31/18 22:01 1 applic BID [facility] Administration Pantoprazole Sodium 40 mg 03/26/18 12:00 03/31/18 09:14 Protonix Iv IVPUSH 40 mg BID [facility] Administration ASSESSMENT/PLAN: 62 year old male who presented for shortness of breath, fever, chills, malaise and was found to have complete left lung white out on CXR, new onset atrial fibrillation, and DKA. Patient admitted to ICU for further monitoring and management. Found w/ presum pos legionella antigen on abx, intubated and sedated. NEURO: -intubated and sedated PULMONARY #Acute Hypoxic Respiratory failure -Likely secondary to Post obstructive Pneumonia from total white out and mass in the left lung. -CT showing consolidation of entire L lung and post R lung c/w PNA -legionella antigen presumptive positive, serum legionella -c/w vancomycin and levaquin, per ID -monitor QTc, amio was dcd, QTc yesterday 403 -daily ABG -taper FiO2 (50% to 40%) to keep SpO2 >90% -spontaneous breathing trials as tolerated once mental status improved -dc steroids -CXR shows improvement of L side -daily CXR -Lasix 40 IV x1 INFECTIOUS DISEASE #Sepsis Secondary to Bilateral Pneumonia -afebrile overnight -central line removed 03/29/18, Patient maintaining good MAP and not on pressers. -legionella antigen presumptive positive -c/w vancomycin and levaquin, QTc yesterday 403 -Sputum, Blood cultures neg -ID consult -dc steroids -bacid CARDIOLOGY #Atrial Fibrillation w/ RVR HR remains ctl -dc Heparin drip for AC -lovenox 90 bid, Cr 1.1 -c/w metop 12.5 bid PO for rate ctl -ECHO RV ystolic 30-40, nl LVSF, nl EF -Cardiology consult -central line removed 03/29/18, Patient maintaining good MAP and not on pressers. pt has 2 good peripheral lines #HTN Monitor CVP 8-12 RENAL [place] maintaining good UOP Lasix 40 IV x1 Endocrine #hyperglycemia ISS levemir 18U HEMATOLOGY -H/H now stable at 10.2 - Hb was dropping. Recent values: 14, 11, 10.6, 10.3, 10.2 - Continue to Trend. Will transfuse if less than 7 #Elevated INR -possible malignancy -Patient denies taking Coumadin, or any blood thinners. Denies alcohol use. -Continue to monitor F/E/N -no IVF at this time, feeds are at goal 35ml -replete prn -enteral feeds Prophylaxis -c/w lovenox 90 bid for DVT/A-fib -protonix bid Disposition -Full code -ICU monitoring Visit type - Emergency Visit Emergency Visit: Yes ED Registration Date: 03/25/18 Care time: The patient presented to the Emergency Department on the above date and was hospitalized for further evaluation of their emergent condition. - New Patient This patient is new to me today: Yes Date on this admission: 03/31/18 - Critical Care Critical Care patient: Yes Total Critical Care Time (in minutes): 38 Critical Care Statement: The care of this patient involved high complexity decision making to prevent further life threatening deterioration of the patient 's condition and/or to evaluate & treat vital organ system(s) failure or risk of failure.
--- NOTE | 2018-03-31 14:40 | PN ---
Teaching Attending Note Name of Resident: Joe Larkin ATTENDING PHYSICIAN STATEMENT I saw and evaluated the patient. I reviewed the resident's note and discussed the case with the resident. I agree with the resident's findings and plan as documented. SUBJECTIVE:intubated/sedated OBJECTIVE: Last Vital Signs Temp Pulse Resp BP Pulse Ox 98.8 F 85 18 193/88 H 91 L 03/31/18 14:00 03/31/18 14:00 03/31/18 14:00 03/31/18 14:00 03/31/18 10:00 Intake & Output 03/28/18 03/29/18 03/30/18 03/31/18 23:59 23:59 23:59 23:59 Intake Total 5021 3784 1710 1342 Output Total 1650 2000 1900 500 Balance 3371 1784 -190 842 Weight 187 lb 6.287 oz 195 lb 1.6 oz 193 lb 12.581 oz 193 lb 12.581 oz General sedated CV S1 S2 RRR no murmur/rub/gallop Lungs coarse breath sounds Abdomen soft NT/ND obese Extremities no pedal edema ASSESSMENT AND PLAN: 62 Y/O M with PMHx uncontrolled DM, HTN, HLD P/W SOB for 5 days, found to be in hypoxic respiratory failure and sepsis due to PNA, intubated for hypoxic respiratory failure, newly dxed Afib. 1. Acute Hypoxic respiratory failure- due to multilobar PNA. on medrol daily. Intubated in the ER. currently on 50% FiO2. titrate down as tolerated. treat infection. daily sedation vacations. further management per ICU team 2. sepsis due to Multi-lobar PNA- +legionella. afebrile. On Levaquin day 7. chest PT. quant pending/legionella serology pending. HIV negative. ID on board 3. MRSA wound infection- daily dressings on vanco day 7. check vanco level today. vanco adjusted yesterday. 4. Afib with RVR- new onset. likely induced from sepsis and hypoxia. now in NSR. off amio, [id number] 2. on full dose lovenox. echo reviewed. TSH wnl. can have ischemia workup outpatient vs prior to discharge. cardio on board. 5. Prolonged Qtc- avoid QT prolonging agents. now resolved. 6. DM- uncontrolled. A1c 11.5. remains very uncontrolled. zari increase to Levemir 18 units BID. may need to reduce coverage once off steroids. will monitor closely. cont to titrate as needed. ISS and BGM. will need insulin on discharge 7. SONIDO- due to hypoperfusion. now improved. avoid nephrotoxic agents 8. DVT ppx- full dose lovenox 9. Full code. MICU monitoring 10. spoke with children present at bedside. updated on current events and plan. verbalized understanding and agreement with plan The care of this patient involved high complexity decision making to prevent further life threatening deterioration of the patient's condition and/or to evaluate & treat vital organ system(s) failure or risk of failure. 37 mins
[2018-03-31] MEDS: CHLORHEXIDINE GLUCONATE 4% CLEANSER FOR DECOLONIZATION TP SCH (22:04)
[2018-03-31] MEDS: INSULIN (LEVEMIR) 100 UNITS/ML UNITS SQ SCH (23:00)
[2018-04-01] MEDS ORDERED: fentaNYL CITRATE 250 MCG/5 ML VIAL ONE ×3 (01:44→21:05)
[2018-04-01] MEDS: VANCOMYCIN 1 GRAM (PRE-DOCKED) 1,000 MG/250 ML BAG IVPB SCH ×2 (03:42→15:37)
[2018-04-01 05:54] LABS: BASO % 0.4 % (0-2.0); EOS % 2.1 % (0-4.5); HEMATOCRIT 32.6 % (35.4-49); HEMOGLOBIN 10.7 GM/dL (11.7-16.9); LYMPH % 10.8 % (8-40); MCH 25.6 pg (25.7-33.7); MCHC 32.7 g/dl (32.0-35.9); MEAN CELL VOLUME 78.3 fl (80-96); MEAN PLT VOLUME 9.8 fl (7.5-11.1); MONO % 5.5 % (3.8-10.2); NEUT % 81.2 % (42.8-82.8); PLATELET COUNT 384 K/MM3 (134-434); RBC 4.17 M/mm3 (4.00-5.60); RDW 14.9 % (11.9-15.9); WHITE BLOOD COUNT 23.5 K/mm3 (4.0-10.0)
[2018-04-01] MEDS: INSULIN SLIDING SCALE (NOVOLOG) 1 VIAL SQ SCH ×4 (06:06→17:40)
[2018-04-01] MEDS: INSULIN (LEVEMIR) 100 UNITS/ML UNITS SQ SCH ×2 (06:06→21:15)
[2018-04-01 06:25] LABS: ALBUMIN 1.5 g/dl (3.4-5.0); ALK PHOS 65 U/L (45-117); ANION GAP 8 MMOL/L (8-16); BILIRUBIN,TOTAL 0.4 mg/dL (0.2-1); BLOOD UREA NITROGEN 35 mg/dL (7-18); CALCIUM 7.9 mg/dL (8.5-10.1); CHLORIDE 109 mmol/L (98-107); CO2 30 mmol/L (21-32); GLUCOSE,RANDOM 220 mg/dL (74-106); MAGNESIUM 2.2 mg/dL (1.8-2.4); PHOSPHOROUS 3.7 mg/dL (2.5-4.9); POTASSIUM 4.1 mmol/L (3.5-5.1); SGOT/AST 26 U/L (15-37); SGPT/ALT 24 U/L (13-61); SODIUM 146 mmol/L (136-145); TOT PROT 5.4 g/dl (6.4-8.2)
[2018-04-01 06:28] LABS: ARTERIAL BLD GAS O2 SATURATION 91.5 % (90-98.9); ARTERIAL BLOOD GAS BASE EXCESS 5.2 meq/l (-2-2); ARTERIAL BLOOD GAS PO2 68.2 mmHg (80-100); ARTERIAL BLOOD GAS pH 7.39 (7.35-7.45)
[2018-04-01 07:05] LABS: ALLENS TEST POSITIVE
[2018-04-01] MEDS: FENTANYL INJECTION 500 MCG in DEXTROSE 5%-WATER - 90 ML IVPB SCH ×2 (08:50→14:54)
[2018-04-01] MEDS: PROPOFOL 1,000,000 MCG/100 ML VIAL IVPB SCH ×3 (08:51→15:37)
[2018-04-01] MEDS: ENOXAPARIN NA (PORCINE) 100 MG/1 ML DISP.SYRIN SQ SCH ×3 (09:15→21:10)
[2018-04-01] MEDS: AMINO ACIDS/PROTEIN HYDROLYS 30 ML LIQUID.PKT PO SCH ×2 (09:15→17:40)
[2018-04-01] MEDS: PANTOPRAZOLE SODIUM 40 MG VIAL IVPUSH SCH ×2 (09:15→21:13)
[2018-04-01] MEDS: LACTOBACILLUS ACIDOPHILUS 1 TABLET PO SCH (09:15)
[2018-04-01] MEDS: METOPROLOL TARTRATE 25 MG TABLET (FP) PO SCH ×2 (09:16→21:12)
[2018-04-01] MEDS: CHLORHEXIDINE GLUCONATE 0.12% 15ML CUP MM SCH ×2 (09:17→21:12)
--- NOTE | 2018-04-01 10:06 | PN ---
Progress Note, Physician History of Present Illness: Off sedation More awake, alert Remains intubated No acute distress Low grade temp noted WBC remains elevated - Current Medication List Current Medications: Active Medications Acetaminophen (Ofirmev Injection -) 1,000 mg IVPB Q6H PRN PRN Reason: FEVER Last Admin: 03/29/18 11:59 Dose: 1,000 mg Albuterol/Ipratropium (Duoneb -) 1 amp NEB Q4H PRN PRN Reason: SHORTNESS OF BREATH Amino Acids (Prosource No Carb Liquid Pkt) 30 ml PO BID@0800,1730 [facility] Last Admin: 04/01/18 09:15 Dose: 30 ml Chlorhexidine Gluconate (Hibiclens For Decolonization -) 1 applic TP HS [facility] Last Admin: 03/31/18 22:04 Dose: 1 applic Chlorhexidine Gluconate (Peridex -) 15 ml MM BID [facility] Last Admin: 04/01/18 09:17 Dose: 15 ml Enoxaparin Sodium (Lovenox -) 90 mg SQ BID [facility] Last Admin: 04/01/18 09:15 Dose: 90 mg Propofol (Diprivan -) 1,000,000 mcg in 100 mls @ 2.409 mls/hr IVPB TITR [facility]; Protocol Last Admin: 04/01/18 08:51 Dose: Not Given Fentanyl 500 mcg/ Dextrose 100 mls @ 5 mls/hr IVPB TITR [facility]; Protocol Last Admin: 04/01/18 08:50 Dose: 100 mcg/hr, 20 mls/hr Levofloxacin (Levaquin 750 Mg Premixed Ivpb -) 750 mg in 150 mls @ 150 mls/hr IVPB DAILY [facility]; Protocol Last Admin: 04/01/18 09:15 Dose: 150 mls/hr Vancomycin HCl (Vancomycin (Pre-Docked)) 1,000 mg in 250 mls @ 166.667 mls/hr IVPB Q12H [facility]; Protocol Last Admin: 04/01/18 03:42 Dose: 166.667 mls/hr Insulin Aspart (Novolog Vial Sliding Scale -) 1 vial SQ Q6HPO [facility]; Protocol Last Admin: 04/01/18 06:06 Dose: 8 units Insulin Detemir (Levemir Vial) 22 units SQ BID@0700,2200 [facility] Lactobacillus Acidophilus (Bacid -) 1 tab PO DAILY [facility] Last Admin: 04/01/18 09:15 Dose: 1 tab Metoprolol Tartrate (Lopressor -) 12.5 mg PO BID [facility] Last Admin: 04/01/18 09:16 Dose: 12.5 mg Pantoprazole Sodium (Protonix Iv) 40 mg IVPUSH BID [facility] Last Admin: 04/01/18 09:15 Dose: 40 mg - Objective Vital Signs: Vital Signs Temperature 99.3 F 04/01/18 09:30 Pulse Rate 72 04/01/18 09:10 Respiratory Rate 18 04/01/18 09:30 Blood Pressure 163/72 04/01/18 09:30 O2 Sat by Pulse Oximetry (%) 97 04/01/18 09:10 Constitutional: Yes: No Distress Eyes: Yes: Conjunctiva Clear Cardiovascular: Yes: Regular Rate and Rhythm, S1, S2 Respiratory: Yes: Mechanically Ventilated Gastrointestinal: Yes: Normal Bowel Sounds, Soft. No: Tenderness Edema: Yes Labs: CBC, BMP 04/01/18 05:30 04/01/18 05:30 INR, PTT INR 1.51 (0.83-1.09) H 03/26/18 05:13 Assessment/Plan Multilobar legionella pneumonia Respiratory failure Sepsis secondary to lung source Leukocytosis lactic acidosis + Wound c/s MRSA Continue levaquin/ vancomycin Ventilatory support Weaning as tolerated Contact precautions for + wound c/s MRSA
[2018-04-01] MEDS ORDERED: FUROSEMIDE 40 MG/4 ML INJECTABLE VIAL IVPUSH ONE (11:31)
--- NOTE | 2018-04-01 11:36 | PN ---
Progress Note (short form) - Note Progress Note: Chief Complaint: resp failure History of Present Illness: intubated/sedated Current Medications Generic Name Dose Route Start Last Admin Trade Name Pollo PRN Reason Stop Dose Admin Acetaminophen 1,000 mg 03/26/18 19:02 03/29/18 11:59 Ofirmev Injection - IVPB 1,000 mg Q6H PRN Administration FEVER Albuterol/Ipratropium 1 amp 03/26/18 05:47 Duoneb - NEB Q4H PRN SHORTNESS OF BREATH Amino Acids 30 ml 03/27/18 17:30 04/01/18 09:15 Prosource No Carb Liquid Pkt PO 30 ml BID@0800,1730 [facility] Administration Chlorhexidine Gluconate 1 applic 03/26/18 22:00 03/31/18 22:04 Hibiclens For Decolonization - TP 1 applic HS [facility] Administration Chlorhexidine Gluconate 15 ml 03/28/18 10:00 04/01/18 09:17 Peridex - MM 15 ml BID [facility] Administration Enoxaparin Sodium 90 mg 03/29/18 13:15 04/01/18 09:15 Lovenox - SQ 90 mg BID [facility] Administration Propofol 1,000,000 mcg in 100 mls @ 2.409 mls/hr 03/26/18 07:45 04/01/18 08: 51 Diprivan - IVPB Not Given TITR [facility] Protocol 5 MCG/KG/MIN Fentanyl 500 mcg/ Dextrose 100 mls @ 5 mls/hr 03/26/18 07:45 04/01/18 08:50 IVPB 100 mcg/hr TITR [facility] 20 mls/hr Administration Protocol 25 MCG/HR Levofloxacin 750 mg in 150 mls @ 150 mls/hr 03/26/18 16:30 04/01/18 09:15 Levaquin 750 Mg Premixed Ivpb - IVPB 150 mls/hr DAILY [facility] Administration Protocol Vancomycin HCl 1,000 mg in 250 mls @ 166.667 mls/hr 03/29/18 16:30 04/01/18 03:42 Vancomycin (Pre-Docked) IVPB 166.667 mls/hr Q12H [facility] Administration Protocol Insulin Aspart 1 vial 03/28/18 08:30 04/01/18 06:06 Novolog Vial Sliding Scale - SQ 8 units Q6HPO [facility] Administration Protocol Insulin Detemir 22 units 04/01/18 09:26 Levemir Vial SQ BID@0700,2200 [facility] Lactobacillus Acidophilus 1 tab 03/31/18 12:00 04/01/18 09:15 Bacid - PO 1 tab DAILY [facility] Administration Metoprolol Tartrate 12.5 mg 03/28/18 12:15 04/01/18 09:16 Lopressor - PO 12.5 mg BID [facility] Administration Pantoprazole Sodium 40 mg 03/26/18 12:00 04/01/18 09:15 Protonix Iv IVPUSH 40 mg BID [facility] Administration - Objective Vital Signs: Vital Signs Period Temp Pulse Resp BP Sys/Santacruz Pulse Ox Last 24 Hr 98.8 F-99.7 F 56-85 13-20 117-193/61-88 40-97 Constitutional: Yes: No Distress, Calm, intubated Cardiovascular: Yes: Regular Rate and Rhythm, S1, S2, Other (PMI non diplaced). No: Gallop, Murmur Respiratory: Yes: +rhonchi. No: Accessory Muscle Use Gastrointestinal: Yes: Normal Bowel Sounds, Soft. No: Tenderness Extremities: No: Cold Edema: No Integumentary: No: Jaundice Neurological:sedated Psychiatric: No: Agitated CBC, BMP 04/01/18 05:30 04/01/18 05:30 ct chest: b/l pna ecg: afib vr 154, no ischemic changes, nl qtc ecg 03/30 sinus, QTc 403 (stable) echo 03/18: nl LVSF. nl RV. nl LA. mild MR/TR. RVSP 30-40 tele: sinus a/p: 62 m hx dm, hld, htn here with fever, leg wound. sepsis, PNA, acute resp failure: -has sahu abscess as well as b/l pna -cont abx per ID/crit care -vent management per ICU team -no signs chf or acs -no pressor requirement at present, bp stable afib, rvr: -unknown if new onset -in er started on dilt gtt and amio gtt-->sinus -cont metoprolol -chadsvasc 2 warrants ac, on lovenox SONIDO: -bun/creat up 03/27, ? intravasc vol depletion in setting of DKA -improved with IVF dm: -on insulin -per crit care htn: -bp soft here initially, home meds held, now resumed bb. will also resume norvasc as bp high today
[2018-04-01] MEDS: amLODIPine BESYLATE 5 MG TABLET (FP) PO SCH (11:44)
--- NOTE | 2018-04-01 12:05 | PN ---
Physical Exam: SUBJECTIVE: Patient seen and examined in the ICU. off sedation, awake and Intubated. Patient maintaining good MAP/UOP and not on pressers. afebrile. No overnight events per nurse. Vented on volume AC with 40% FiO2. OBJECTIVE: Vital Signs Period Temp Pulse Resp BP Sys/Santacruz Pulse Ox Last 24 Hr 98.8 F-99.7 F 56-85 13-20 117-193/61-88 40-97 GENERAL: off sedation, awake and Intubated, LUNGS: mechanical breath sounds b/l, very rhonchorous, w/ dec sounds on L side, improving HEART: RRR, S1 S2 no m/r/g ABDOMEN: BS present, soft, NTND Extremities: no peripheral edema noted SKIN: Warm, dry, normal turgor, no rashes or lesions noted Laboratory Results - last 24 hr 03/31/18 03/31/18 03/31/18 11:53 14:30 17:09 WBC RBC Hgb Hct MCV MCH MCHC RDW Plt Count MPV Absolute Neuts (auto) Neutrophils % Neutrophils % (Manual) Band Neutrophils % Lymphocytes % Lymphocytes % (Manual) Monocytes % Monocytes % (Manual) Eosinophils % Eosinophils % (Manual) Basophils % Basophils % (Manual) Myelocytes % (Man) Promyelocytes % (Man) Blast Cells % (Manual) Nucleated RBC % Metamyelocytes Puncture Site ABG pH ABG pCO2 at Pt Temp ABG pO2 at Pt Temp ABG HCO3 ABG O2 Sat (Measured) ABG O2 Content ABG Base Excess Petey Test O2 Delivery Device Oxygen Flow Rate Vent Mode Vent Rate Mechanical Rate PEEP Pressure Support Vent Sodium Potassium Chloride Carbon Dioxide Anion Gap BUN Creatinine Creat Clearance w eGFR POC Glucometer [phone] Random Glucose Calcium Phosphorus Magnesium Total Bilirubin AST ALT Alkaline Phosphatase Total Protein Albumin Vancomycin Pre-Dose 17.6 L 04/01/18 04/01/18 04/01/18 01:18 05:30 05:30 WBC 23.5 H RBC 4.17 Hgb 10.7 L Hct 32.6 L MCV 78.3 L MCH 25.6 L MCHC 32.7 RDW 14.9 Plt Count 384 D MPV 9.8 Absolute Neuts (auto) 19.1 H Neutrophils % 81.2 Neutrophils % (Manual) 59.8 Band Neutrophils % 0.0 Lymphocytes % 10.8 D Lymphocytes % (Manual) 20.7 D Monocytes % 5.5 Monocytes % (Manual) 7 Eosinophils % 2.1 Eosinophils % (Manual) 0.0 D Basophils % 0.4 Basophils % (Manual) 0.0 Myelocytes % (Man) 5 H D Promyelocytes % (Man) 2 D Blast Cells % (Manual) 0 Nucleated RBC % 0 Metamyelocytes 5 H Puncture Site ABG pH ABG pCO2 at Pt Temp ABG pO2 at Pt Temp ABG HCO3 ABG O2 Sat (Measured) ABG O2 Content ABG Base Excess Petey Test O2 Delivery Device Oxygen Flow Rate Vent Mode Vent Rate Mechanical Rate PEEP Pressure Support Vent Sodium 146 H Potassium 4.1 Chloride 109 H Carbon Dioxide 30 Anion Gap 8 BUN 35 H Creatinine 1.0 Creat Clearance w eGFR > 60 POC Glucometer [phone] Random Glucose 220 H Calcium 7.9 L Phosphorus 3.7 Magnesium 2.2 Total Bilirubin 0.4 AST 26 ALT 24 Alkaline Phosphatase 65 Total Protein 5.4 L Albumin 1.5 L Vancomycin Pre-Dose 04/01/18 04/01/18 05:40 06:00 WBC RBC Hgb Hct MCV MCH MCHC RDW Plt Count MPV Absolute Neuts (auto) Neutrophils % Neutrophils % (Manual) Band Neutrophils % Lymphocytes % Lymphocytes % (Manual) Monocytes % Monocytes % (Manual) Eosinophils % Eosinophils % (Manual) Basophils % Basophils % (Manual) Myelocytes % (Man) Promyelocytes % (Man) Blast Cells % (Manual) Nucleated RBC % Metamyelocytes Puncture Site Left radial ABG pH 7.39 ABG pCO2 at Pt Temp 51.0 H ABG pO2 at Pt Temp 68.2 L ABG HCO3 30.5 H ABG O2 Sat (Measured) 91.5 ABG O2 Content 13.0 L ABG Base Excess 5.2 H Petey Test Positive O2 Delivery Device Mech vent Oxygen Flow Rate 40% Vent Mode A/c Vent Rate 14 Mechanical Rate Yes PEEP 8.0 Pressure Support Vent 400 Sodium Potassium Chloride Carbon Dioxide Anion Gap BUN Creatinine Creat Clearance w eGFR POC Glucometer [phone] Random Glucose Calcium Phosphorus Magnesium Total Bilirubin AST ALT Alkaline Phosphatase Total Protein Albumin Vancomycin Pre-Dose Active Medications Generic Name Dose Route Start Last Admin Trade Name Freq PRN Reason Stop Dose Admin Acetaminophen 1,000 mg 03/26/18 19:02 03/29/18 11:59 Ofirmev Injection - IVPB 1,000 mg Q6H PRN Administration FEVER Albuterol/Ipratropium 1 amp 03/26/18 05:47 Duoneb - NEB Q4H PRN SHORTNESS OF BREATH Amino Acids 30 ml 03/27/18 17:30 04/01/18 09:15 Prosource No Carb Liquid Pkt PO 30 ml BID@0800,1730 [facility] Administration Amlodipine Besylate 5 mg 04/01/18 11:45 Norvasc - PO DAILY [facility] Chlorhexidine Gluconate 1 applic 03/26/18 22:00 03/31/18 22:04 Hibiclens For Decolonization - TP 1 applic HS [facility] Administration Chlorhexidine Gluconate 15 ml 03/28/18 10:00 04/01/18 09:17 Peridex - MM 15 ml BID [facility] Administration Enoxaparin Sodium 90 mg 03/29/18 13:15 04/01/18 09:15 Lovenox - SQ 90 mg BID [facility] Administration Propofol 1,000,000 mcg in 100 mls @ 2.409 mls/hr 03/26/18 07:45 04/01/18 08: 51 Diprivan - IVPB Not Given TITR [facility] Protocol 5 MCG/KG/MIN Fentanyl 500 mcg/ Dextrose 100 mls @ 5 mls/hr 03/26/18 07:45 04/01/18 08:50 IVPB 100 mcg/hr TITR [facility] 20 mls/hr Administration Protocol 25 MCG/HR Levofloxacin 750 mg in 150 mls @ 150 mls/hr 03/26/18 16:30 04/01/18 09:15 Levaquin 750 Mg Premixed Ivpb - IVPB 150 mls/hr DAILY [facility] Administration Protocol Vancomycin HCl 1,000 mg in 250 mls @ 166.667 mls/hr 03/29/18 16:30 04/01/18 03:42 Vancomycin (Pre-Docked) IVPB 166.667 mls/hr Q12H [facility] Administration Protocol Insulin Aspart 1 vial 03/28/18 08:30 04/01/18 06:06 Novolog Vial Sliding Scale - SQ 8 units Q6HPO [facility] Administration Protocol Insulin Detemir 22 units 04/01/18 09:26 Levemir Vial SQ BID@0700,2200 [facility] Lactobacillus Acidophilus 1 tab 03/31/18 12:00 04/01/18 09:15 Bacid - PO 1 tab DAILY [facility] Administration Metoprolol Tartrate 12.5 mg 03/28/18 12:15 04/01/18 09:16 Lopressor - PO 12.5 mg BID [facility] Administration Pantoprazole Sodium 40 mg 03/26/18 12:00 04/01/18 09:15 Protonix Iv IVPUSH 40 mg BID [facility] Administration ASSESSMENT/PLAN: 62 year old male who presented for shortness of breath, fever, chills, malaise and was found to have complete left lung white out on CXR, new onset atrial fibrillation, and DKA. Patient admitted to ICU for further monitoring and management. Found w/ presum pos legionella antigen on abx, intubated and sedated. NEURO: off sedation, awake and Intubated PULMONARY #Acute Hypoxic Respiratory failure - off sedation, awake and Intubated, -Likely secondary to Post obstructive Pneumonia from total white out and mass in the left lung. -CT showing consolidation of entire L lung and post R lung c/w PNA -legionella antigen presumptive positive, serum legionella -c/w vancomycin and levaquin, per ID -monitor QTc, amio was dcd, QTc 453 -daily ABG -taper FiO2 to keep SpO2 >90% -CPAP trial today w/ 10/03 -s/p steroids -CXR shows improvement of L side -daily CXR -s/p Lasix 40 IV x1, another dose today INFECTIOUS DISEASE #Sepsis Secondary to Bilateral Pneumonia -afebrile overnight -central line removed 03/29/18, Patient maintaining good MAP and not on pressers. -legionella antigen presumptive positive -c/w vancomycin and levaquin, QTc 453 -Sputum, Blood cultures neg -ID consult -s/p steroids -bacid CARDIOLOGY #Atrial Fibrillation w/ RVR HR remains ctl -dc Heparin drip for AC -lovenox 90 bid, Cr 1 -c/w metop 12.5 bid PO for rate ctl -ECHO RV ystolic 30-40, nl LVSF, nl EF -Cardiology consult -central line removed 03/29/18, Patient maintaining good MAP and not on pressers. pt has 2 good peripheral lines #HTN Monitor CVP 8-12 -bp soft here initially, home meds held, now resumed bb. will also resume norvasc as bp high today RENAL [place] maintaining good UOP Lasix 40 IV x1, another dose today Endocrine #hyperglycemia ISS levemir 22U, per primary team HEMATOLOGY -H/H now stable at 10.7 - Hb was dropping. Recent values: 14, 11, 10.6, 10.3, 10.2, 10.7 - Continue to Trend. Will transfuse if less than 7 #Elevated INR -possible malignancy -Patient denies taking Coumadin, or any blood thinners. Denies alcohol use. -Continue to monitor F/E/N -no IVF at this time -replete prn -stop enteral feeds, pt off sedation Prophylaxis -c/w lovenox 90 bid for DVT/A-fib -protonix bid Disposition -Full code -off sedation, awake and Intubated, CPAP trial today 10/03 -ICU monitoring Visit type - Emergency Visit Emergency Visit: Yes ED Registration Date: 03/25/18 Care time: The patient presented to the Emergency Department on the above date and was hospitalized for further evaluation of their emergent condition. - New Patient This patient is new to me today: Yes Date on this admission: 04/01/18 - Critical Care Critical Care patient: Yes Total Critical Care Time (in minutes): 38 Critical Care Statement: The care of this patient involved high complexity decision making to prevent further life threatening deterioration of the patient 's condition and/or to evaluate & treat vital organ system(s) failure or risk of failure.
--- NOTE | 2018-04-01 12:26 | PN ---
Teaching Attending Note Name of Resident: Alexx Rabago ATTENDING PHYSICIAN STATEMENT I saw and evaluated the patient. I reviewed the resident's note and discussed the case with the resident. I agree with the resident's findings and plan as documented. SUBJECTIVE: Pt seen and examined in the ICU. Remains intubated, sedated. On lower oxygen requirements. OBJECTIVE: Vital Signs Period Temp Pulse Resp BP Sys/Santacruz Pulse Ox Last 24 Hr 98.7 F-99.7 F 58-92 13-26 117-193/61-88 40-97 Intake & Output 03/29/18 03/30/18 03/31/18 04/01/18 23:59 23:59 23:59 23:59 Intake Total 3784 1710 2527.2 1047.8 Output Total 1999 1900 3000 450 Balance 1784 -190 -472.8 597.8 Weight 88.496 kg 87.9 kg 87.9 kg 87.3 kg Gen: intubated, awake off sedation Heart: RRR Lung: scattered rhonchi Abd: soft, nontender Ext: + edema CBC, BMP 04/01/18 05:30 04/01/18 05:30 Active Medications Acetaminophen (Ofirmev Injection -) 1,000 mg IVPB Q6H PRN PRN Reason: FEVER Last Admin: 03/29/18 11:59 Dose: 1,000 mg Albuterol/Ipratropium (Duoneb -) 1 amp NEB Q4H PRN PRN Reason: SHORTNESS OF BREATH Amino Acids (Prosource No Carb Liquid Pkt) 30 ml PO BID@0800,1730 [facility] Last Admin: 04/01/18 09:15 Dose: 30 ml Amlodipine Besylate (Norvasc -) 5 mg PO DAILY [facility] Last Admin: 04/01/18 11:44 Dose: 5 mg Chlorhexidine Gluconate (Hibiclens For Decolonization -) 1 applic TP HS [facility] Last Admin: 03/31/18 22:04 Dose: 1 applic Chlorhexidine Gluconate (Peridex -) 15 ml MM BID [facility] Last Admin: 04/01/18 09:17 Dose: 15 ml Enoxaparin Sodium (Lovenox -) 90 mg SQ BID [facility] Last Admin: 04/01/18 09:15 Dose: 90 mg Propofol (Diprivan -) 1,000,000 mcg in 100 mls @ 2.409 mls/hr IVPB TITR [facility]; Protocol Last Admin: 04/01/18 08:51 Dose: Not Given Fentanyl 500 mcg/ Dextrose 100 mls @ 5 mls/hr IVPB TITR [facility]; Protocol Last Admin: 04/01/18 08:50 Dose: 100 mcg/hr, 20 mls/hr Levofloxacin (Levaquin 750 Mg Premixed Ivpb -) 750 mg in 150 mls @ 150 mls/hr IVPB DAILY [facility]; Protocol Last Admin: 04/01/18 09:15 Dose: 150 mls/hr Vancomycin HCl (Vancomycin (Pre-Docked)) 1,000 mg in 250 mls @ 166.667 mls/hr IVPB Q12H [facility]; Protocol Last Admin: 04/01/18 03:42 Dose: 166.667 mls/hr Insulin Aspart (Novolog Vial Sliding Scale -) 1 vial SQ Q6HPO [facility]; Protocol Last Admin: 04/01/18 11:50 Dose: 4 units Insulin Detemir (Levemir Vial) 22 units SQ BID@0700,2200 [facility] Lactobacillus Acidophilus (Bacid -) 1 tab PO DAILY [facility] Last Admin: 04/01/18 09:15 Dose: 1 tab Metoprolol Tartrate (Lopressor -) 12.5 mg PO BID [facility] Last Admin: 04/01/18 09:16 Dose: 12.5 mg Pantoprazole Sodium (Protonix Iv) 40 mg IVPUSH BID [facility] Last Admin: 04/01/18 09:15 Dose: 40 mg ASSESSMENT AND PLAN: Acute Hypoxic Respiratory Failure Legionella Pneumonia Severe Sepsis Acute Kidney Injury Lactic Acidosis ARDS Atrial Fibrillation with RVR HTN DM - continue antibiotics - monitor QTc - rate control - continue anticoagulation - lasix today - monitor urine output, creatinine - low tidal volume ventilation 6cc/kg/IBW - keep Pplat <30 - taper FiO2, PEEP to keep SpO2 >90% - inhaled bronchodilators - enteral feeds - hold sedation to assess mental status - spontaneous breathing trials as tolerated once mental status improved - hope to extubate in next 1-2 days - DVT/GI prophylaxis critical care time spent in reviewing chart, evaluating patient and formulating plan 35 min
--- NOTE | 2018-04-01 14:47 | EKG ---
Test Reason : Blood Pressure : / mmHG Vent. Rate : 073 BPM Atrial Rate : 073 BPM P-R Int : 124 ms QRS Dur : 078 ms QT Int : 412 ms P-R-T Axes : 031 061 053 degrees QTc Int : 453 ms SINUS RHYTHM WITH PREMATURE ATRIAL COMPLEXES OTHERWISE NORMAL ECG WHEN COMPARED WITH ECG OF 30-MAR-2018 09:06, PREMATURE ATRIAL COMPLEXES ARE NOW PRESENT NONSPECIFIC T WAVE ABNORMALITY NO LONGER EVIDENT IN LATERAL LEADS QT HAS LENGTHENED Confirmed by WALDO RENNER MD ([id number]) on 04/01/2018 2:46:46 PM Referred By: BRISEIDA CONNER Confirmed By:WALDO RENNER MD
--- NOTE | 2018-04-01 15:37 | PN ---
Teaching Attending Note Name of Resident: Joe Larkin ATTENDING PHYSICIAN STATEMENT I saw and evaluated the patient. I reviewed the resident's note and discussed the case with the resident. I agree with the resident's findings and plan as documented. SUBJECTIVE:intubated/sedated OBJECTIVE: Last Vital Signs Temp Pulse Resp BP Pulse Ox 99.1 F 90 14 138/63 97 04/01/18 13:58 04/01/18 13:58 04/01/18 14:00 04/01/18 13:58 04/01/18 10:00 General sedated CV S1 S2 RRR no murmur/rub/gallop Lungs coarse breath sounds Abdomen soft NT/ND obese Extremities no pedal edema ASSESSMENT AND PLAN: 62 Y/O M with PMHx uncontrolled DM, HTN, HLD P/W SOB for 5 days, found to be in hypoxic respiratory failure and sepsis due to PNA, intubated for hypoxic respiratory failure, newly dxed Afib. 1. Acute Hypoxic respiratory failure- due to multilobar PNA. steroids stopped. did not tolerate cpap trial due to tachypnea. cont daily cpap trials. daily sedation vacations. further management per ICU team 2. sepsis due to Multi-lobar PNA- +legionella. afebrile. On Levaquin day 8. chest PT. quant pending/legionella serology pending. HIV negative. ID on board 3. MRSA wound infection- daily dressings on vanco day 8. vanco level yesterday was high however not done accurately. will repeat. adjust vanco as needed. 4. Afib with RVR- new onset. likely induced from sepsis and hypoxia. now in NSR. off amio, [id number] 2. on full dose lovenox. echo reviewed. TSH wnl. can have ischemia workup outpatient vs prior to discharge. cardio on board. 5. Prolonged Qtc- avoid QT prolonging agents. now resolved. 6. DM- uncontrolled. A1c 11.5. increase levemir to 22 units BID. hyperglycemia hoping to improve with removal of steroids. titrate as needed. ISS and BGM. will need insulin on discharge 7. SONIDO- due to hypoperfusion. now improved. avoid nephrotoxic agents 8. DVT ppx- full dose lovenox 9. Full code. MICU monitoring The care of this patient involved high complexity decision making to prevent further life threatening deterioration of the patient's condition and/or to evaluate & treat vital organ system(s) failure or risk of failure. 35 mins
--- NOTE | 2018-04-01 15:54 | PN ---
Physical Exam: SUBJECTIVE: Patient seen and examined at bedside. Afebrile overnight. CPAP trial unsuccessful. Pt became hypertensive during weaning., 179/79. Norvasc given. OBJECTIVE: Vital Signs Period Temp Pulse Resp BP Sys/Santacruz Pulse Ox Last 24 Hr 98.7 F-99.7 F 58-92 13-26 117-179/61-79 40-97 GENERAL: Intubated and sedated. OG Tube in place, feeds running. HEAD: NC/AT LUNGS: Diffuse rhonchi. HEART: Regular rate and rhythm, S1, S2 without murmur, rub or gallop. ABDOMEN: ND BS+. EXTREMITIES: No CCE SKIN: Warm, dry, normal turgor, no rashes or lesions noted Laboratory Results - last 24 hr 03/31/18 03/31/18 04/01/18 14:30 17:09 01:18 WBC RBC Hgb Hct MCV MCH MCHC RDW Plt Count MPV Absolute Neuts (auto) Neutrophils % Neutrophils % (Manual) Band Neutrophils % Lymphocytes % Lymphocytes % (Manual) Monocytes % Monocytes % (Manual) Eosinophils % Eosinophils % (Manual) Basophils % Basophils % (Manual) Myelocytes % (Man) Promyelocytes % (Man) Blast Cells % (Manual) Nucleated RBC % Metamyelocytes Puncture Site ABG pH ABG pCO2 at Pt Temp ABG pO2 at Pt Temp ABG HCO3 ABG O2 Sat (Measured) ABG O2 Content ABG Base Excess Petey Test O2 Delivery Device Oxygen Flow Rate Vent Mode Vent Rate Mechanical Rate PEEP Pressure Support Vent Sodium Potassium Chloride Carbon Dioxide Anion Gap BUN Creatinine Creat Clearance w eGFR POC Glucometer [phone] Random Glucose Calcium Phosphorus Magnesium Total Bilirubin AST ALT Alkaline Phosphatase Total Protein Albumin Vancomycin Pre-Dose 17.6 L 04/01/18 04/01/18 04/01/18 05:30 05:30 05:40 WBC 23.5 H RBC 4.17 Hgb 10.7 L Hct 32.6 L MCV 78.3 L MCH 25.6 L MCHC 32.7 RDW 14.9 Plt Count 384 D MPV 9.8 Absolute Neuts (auto) 19.1 H Neutrophils % 81.2 Neutrophils % (Manual) 59.8 Band Neutrophils % 0.0 Lymphocytes % 10.8 D Lymphocytes % (Manual) 20.7 D Monocytes % 5.5 Monocytes % (Manual) 7 Eosinophils % 2.1 Eosinophils % (Manual) 0.0 D Basophils % 0.4 Basophils % (Manual) 0.0 Myelocytes % (Man) 5 H D Promyelocytes % (Man) 2 D Blast Cells % (Manual) 0 Nucleated RBC % 0 Metamyelocytes 5 H Puncture Site ABG pH ABG pCO2 at Pt Temp ABG pO2 at Pt Temp ABG HCO3 ABG O2 Sat (Measured) ABG O2 Content ABG Base Excess Petey Test O2 Delivery Device Oxygen Flow Rate Vent Mode Vent Rate Mechanical Rate PEEP Pressure Support Vent Sodium 146 H Potassium 4.1 Chloride 109 H Carbon Dioxide 30 Anion Gap 8 BUN 35 H Creatinine 1.0 Creat Clearance w eGFR > 60 POC Glucometer 224.68309 Random Glucose 220 H Calcium 7.9 L Phosphorus 3.7 Magnesium 2.2 Total Bilirubin 0.4 AST 26 ALT 24 Alkaline Phosphatase 65 Total Protein 5.4 L Albumin 1.5 L Vancomycin Pre-Dose 04/01/18 06:00 WBC RBC Hgb Hct MCV MCH MCHC RDW Plt Count MPV Absolute Neuts (auto) Neutrophils % Neutrophils % (Manual) Band Neutrophils % Lymphocytes % Lymphocytes % (Manual) Monocytes % Monocytes % (Manual) Eosinophils % Eosinophils % (Manual) Basophils % Basophils % (Manual) Myelocytes % (Man) Promyelocytes % (Man) Blast Cells % (Manual) Nucleated RBC % Metamyelocytes Puncture Site Left radial ABG pH 7.39 ABG pCO2 at Pt Temp 51.0 H ABG pO2 at Pt Temp 68.2 L ABG HCO3 30.5 H ABG O2 Sat (Measured) 91.5 ABG O2 Content 13.0 L ABG Base Excess 5.2 H Petey Test Positive O2 Delivery Device Mech vent Oxygen Flow Rate 40% Vent Mode A/c Vent Rate 14 Mechanical Rate Yes PEEP 8.0 Pressure Support Vent 400 Sodium Potassium Chloride Carbon Dioxide Anion Gap BUN Creatinine Creat Clearance w eGFR POC Glucometer Random Glucose Calcium Phosphorus Magnesium Total Bilirubin AST ALT Alkaline Phosphatase Total Protein Albumin Vancomycin Pre-Dose Active Medications Generic Name Dose Route Start Last Admin Trade Name Freq PRN Reason Stop Dose Admin Acetaminophen 1,000 mg 03/26/18 19:02 03/29/18 11:59 Ofirmev Injection - IVPB 1,000 mg Q6H PRN Administration FEVER Albuterol/Ipratropium 1 amp 03/26/18 05:47 Duoneb - NEB Q4H PRN SHORTNESS OF BREATH Amino Acids 30 ml 03/27/18 17:30 04/01/18 09:15 Prosource No Carb Liquid Pkt PO 30 ml BID@0800,1730 HOLLAND Administration Amlodipine Besylate 5 mg 04/01/18 11:45 04/01/18 11:44 Norvasc - PO 5 mg DAILY HO[place]AND Administration Chlorhexidine Gluconate 1 applic 03/26/18 22:00 03/31/18 22:04 Hibiclens For Decolonization - TP 1 applic HS HO[facility]AND Administration Chlorhexidine Gluconate 15 ml 03/28/18 10:00 04/01/18 09:17 Peridex - MM 15 ml BID HO[facility]AND Administration Enoxaparin Sodium 90 mg 03/29/18 13:15 04/01/18 09:15 Lovenox - SQ 90 mg BID HO[facility]AND Administration Fentanyl 500 mcg/ Dextrose 100 mls @ 5 mls/hr 03/26/18 07:45 04/01/18 14:54 IVPB 100 mcg/hr TITR HOLLAND 20 mls/hr Administration Protocol 25 MCG/HR Levofloxacin 750 mg in 150 mls @ 150 mls/hr 03/26/18 16:30 04/01/18 09:15 Levaquin 750 Mg Premixed Ivpb - IVPB 150 mls/hr DAILY HO[facility] Administration Protocol Vancomycin HCl 1,000 mg in 250 mls @ 166.667 mls/hr 03/29/18 16:30 04/01/18 15:37 Vancomycin (Pre-Docked) IVPB 166.667 mls/hr Q12H HO[facility] Administration Protocol Propofol 1,000,000 mcg in 100 mls @ 2.619 mls/hr 04/01/18 12:45 04/01/18 15: 37 Diprivan - IVPB 30 mcg/kg/min TITR HO[facility]AND 15.714 mls/hr Administration Protocol 5 MCG/KG/MIN Insulin Aspart 1 vial 03/28/18 08:30 04/01/18 11:50 Novolog Vial Sliding Scale - SQ 4 units Q6HPO HO[facility]AND Administration Protocol Insulin Detemir 22 units 04/01/18 09:26 Levemir Vial SQ BID@0700,2200 HO[facility] Lactobacillus Acidophilus 1 tab 03/31/18 12:00 04/01/18 09:15 Bacid - PO 1 tab DAILY HO[facility] Administration Metoprolol Tartrate 12.5 mg 03/28/18 12:15 04/01/18 09:16 Lopressor - PO 12.5 mg BID HO[place] Administration Pantoprazole Sodium 40 mg 03/26/18 12:00 04/01/18 09:15 Protonix Iv IVPUSH 40 mg BID HO[facility]AND Administration ASSESSMENT/PLAN: Patient is a 62 year old male with history of DM, HTN, HLD presents with complaint of shortness of breath for past five days. # Sepsis secondary to Pneumonia/Legionella Pneumonia -Chest xray 03/31/18--> Congestive changes. Left infiltrate with fluid. Prominent mediastinum. Xray 04/01/18 no change. -Patient received Vancomycin and Zosyn in ED -Now on Levaquin day and Vanco. -Lactic acidosis resolved -Infectious disease Dr Rosenbaum on board -Urine/Blood cultures negative -Central line removed 03/29/18 -Currently on 40% FiO2. titrate down as tolerated. Maintain MAP > 65% -R Calf abscess Wound culture + for MRSA -Urine Culture + for Strep Agalactiae Group B # Acute respiratory failure -Likely secondary to the pneumonia -Vented on volume AC with 40% FiO2, PEEP 8. -F/U ABG -fio2 decreased to 40% -Hold sedation in AM to assess mental status # Afib -Patient denies history of Afib, or any cardiac history in past. -CHADsVASC score of 2 -Lovenox 90 bid -Cardiac monitoring -Cardiology on board -Lopressor 12.5 BID # Hypertension Lopressor 12.5 BID #IDDM -Levemir increased to 22 U SQ BID -A1c 11.5% # FEN -No Fluids -Monitor Electrolytes Glucerna 1.5 @ 20cc/hr. -Target volume: 1L volume -> 1500 kcals, 82g protein, 760ml water. -Feeds + prosource 30ml BID gives: 1620 kcals, 112 g protein # Prophylaxis -lovenox 90 bid # Disposition -Care per icu team Visit type - Emergency Visit Emergency Visit: Yes ED Registration Date: 03/25/18 Care time: The patient presented to the Emergency Department on the above date and was hospitalized for further evaluation of their emergent condition. - New Patient This patient is new to me today: No - Critical Care Critical Care patient: Yes Total Critical Care Time (in minutes): 35 Critical Care Statement: The care of this patient involved high complexity decision making to prevent further life threatening deterioration of the patient 's condition and/or to evaluate & treat vital organ system(s) failure or risk of failure. - Discharge Referral Referred to [facility] No
[2018-04-01] MEDS ORDERED: PT OWN MED DRAWER 7, Y5N ONE (21:07)
[2018-04-01] MEDS: CHLORHEXIDINE GLUCONATE 4% CLEANSER FOR DECOLONIZATION TP SCH (21:14)
[2018-04-02] MEDS ORDERED: fentaNYL CITRATE 250 MCG/5 ML VIAL ONE ×4 (01:57→21:49)
[2018-04-02] MEDS: VANCOMYCIN 1 GRAM (PRE-DOCKED) 1,000 MG/250 ML BAG IVPB SCH ×2 (05:00→15:29)
[2018-04-02 05:57] LABS: BASO % 1.2 % (0-2.0); EOS % 3.2 % (0-4.5); HEMATOCRIT 30.6 % (35.4-49); LYMPH % 10.6 % (8-40); MCH 26.1 pg (25.7-33.7); MCHC 32.8 g/dl (32.0-35.9); MEAN CELL VOLUME 79.5 fl (80-96); MEAN PLT VOLUME 9.3 fl (7.5-11.1); MONO % 7.1 % (3.8-10.2); NEUT % 77.9 % (42.8-82.8); PLATELET COUNT 354 K/MM3 (134-434); RBC 3.85 M/mm3 (4.00-5.60); RDW 14.6 % (11.9-15.9); WHITE BLOOD COUNT 16.6 K/mm3 (4.0-10.0)
[2018-04-02] MEDS: INSULIN SLIDING SCALE (NOVOLOG) 1 VIAL SQ SCH ×4 (06:10→18:09)
[2018-04-02] MEDS: INSULIN (LEVEMIR) 100 UNITS/ML UNITS SQ SCH ×2 (06:13→21:34)
[2018-04-02 06:41] LABS: ALBUMIN 1.4 g/dl (3.4-5.0); ALK PHOS 59 U/L (45-117); ANION GAP 5 MMOL/L (8-16); BILIRUBIN,TOTAL 0.4 mg/dL (0.2-1); BLOOD UREA NITROGEN 32 mg/dL (7-18); CALCIUM 7.9 mg/dL (8.5-10.1); CHLORIDE 108 mmol/L (98-107); CO2 34 mmol/L (21-32); CREATININE 0.8 mg/dL (0.55-1.3); GLUCOSE,RANDOM 170 mg/dL (74-106); MAGNESIUM 2.1 mg/dL (1.8-2.4); POTASSIUM 3.7 mmol/L (3.5-5.1); SGOT/AST 45 U/L (15-37); SGPT/ALT 34 U/L (13-61); SODIUM 146 mmol/L (136-145); TOT PROT 4.9 g/dl (6.4-8.2)
[2018-04-02 07:24] LABS: ARTERIAL BLD GAS O2 SATURATION 91.6 % (90-98.9); ARTERIAL BLOOD GAS BASE EXCESS 6.5 meq/l (-2-2); ARTERIAL BLOOD GAS PCO2 53.6 mmHg (35-45); ARTERIAL BLOOD GAS PO2 68.7 mmHg (80-100)
[2018-04-02 07:40] LABS: ALLENS TEST POSITIVE
[2018-04-02] MEDS: AMINO ACIDS/PROTEIN HYDROLYS 30 ML LIQUID.PKT PO SCH ×2 (08:46→18:09)
[2018-04-02] MEDS ORDERED: PT OWN MED DRAWER 7, Y5N ONE (09:21)
[2018-04-02] MEDS: METOPROLOL TARTRATE 25 MG TABLET (FP) PO SCH ×2 (09:23→21:30)
[2018-04-02] MEDS: LACTOBACILLUS ACIDOPHILUS 1 TABLET PO SCH (09:23)
[2018-04-02] MEDS: amLODIPine BESYLATE 5 MG TABLET (FP) PO SCH (09:23)
[2018-04-02] MEDS: ENOXAPARIN NA (PORCINE) 100 MG/1 ML DISP.SYRIN SQ SCH ×2 (09:24→21:32)
[2018-04-02] MEDS: CHLORHEXIDINE GLUCONATE 0.12% 15ML CUP MM SCH ×2 (09:24→21:31)
[2018-04-02] MEDS: PANTOPRAZOLE SODIUM 40 MG VIAL IVPUSH SCH ×2 (10:15→21:30)
--- NOTE | 2018-04-02 10:40 | EKG ---
Test Reason : Blood Pressure : / mmHG Vent. Rate : 053 BPM Atrial Rate : 053 BPM P-R Int : 126 ms QRS Dur : 082 ms QT Int : 478 ms P-R-T Axes : 039 064 073 degrees QTc Int : 448 ms SINUS BRADYCARDIA WITH PREMATURE ATRIAL COMPLEXES WHEN COMPARED WITH ECG OF 01-APR-2018 09:18, NO SIGNIFICANT CHANGE WAS FOUND Confirmed by MJ HER MD ([id number]) on 04/02/2018 10:40:18 AM Referred By: Confirmed By:MJ HER MD
--- NOTE | 2018-04-02 11:51 | PN ---
Teaching Attending Note Name of Resident: Joe Larkin ATTENDING PHYSICIAN STATEMENT I saw and evaluated the patient. I reviewed the resident's note and discussed the case with the resident. I agree with the resident's findings and plan as documented. SUBJECTIVE:intubated/sedated OBJECTIVE: Last Vital Signs Temp Pulse Resp BP Pulse Ox 98.7 F 53 L 26 H 126/63 93 L 04/02/18 02:00 04/02/18 09:00 04/02/18 11:43 04/02/18 08:00 04/02/18 11:43 General sedated CV S1 S2 RRR no murmur/rub/gallop Lungs coarse breath sounds Abdomen soft NT/ND obese Extremities no pedal edema ASSESSMENT AND PLAN: 62 Y/O M with PMHx uncontrolled DM, HTN, HLD P/W SOB for 5 days, found to be in hypoxic respiratory failure and sepsis due to PNA, intubated for hypoxic respiratory failure, newly dxed Afib. 1. Acute Hypoxic respiratory failure- due to multilobar PNA. did not tolerate cpap trial due to tachypnea. cont daily cpap trials. daily sedation vacations. further management per ICU team 2. sepsis due to Multi-lobar PNA- +legionella. afebrile. mild improvement on CXR. On Levaquin day 9. chest PT. quant pending/legionella serology pending. HIV negative. ID on board 3. MRSA wound infection- daily dressings on vanco day 9. vanco level today. adjust vanco as needed. 4. Afib with RVR- new onset. likely induced from sepsis and hypoxia. now in NSR. off amio, [id number] 2. on full dose lovenox. echo reviewed. TSH wnl. can have ischemia workup outpatient vs prior to discharge. cardio on board. 5. Prolonged Qtc- avoid QT prolonging agents. now resolved. 6. DM- uncontrolled. A1c 11.5. controlled. cont current dosing. monitor closely as now off steroids. ISS and BGM. will need insulin on discharge 7. SONIDO- due to hypoperfusion. now improved. avoid nephrotoxic agents 8. DVT ppx- full dose lovenox 9. Full code. MICU monitoring The care of this patient involved high complexity decision making to prevent further life threatening deterioration of the patient's condition and/or to evaluate & treat vital organ system(s) failure or risk of failure. 34 mins
--- NOTE | 2018-04-02 12:04 | PN ---
Physical Exam: SUBJECTIVE: Patient seen and examined in the ICU. sedated and Intubated. Patient maintaining good MAP/UOP and not on pressers. afebrile. No overnight events per nurse. yesterday failed cpap. Vented on volume AC with 40% FiO2. will try today for CPAP and extubation if tolerating OBJECTIVE: Vital Signs Period Temp Pulse Resp BP Sys/Santacruz Pulse Ox Last 24 Hr 98.2 F-99.1 F 50-92 13-26 109-179/57-92 93-98 GENERAL: sedation and Intubated, LUNGS: mechanical breath sounds b/l, very rhonchorous, w/ dec sounds on L side, improving HEART: RRR, S1 S2 no m/r/g ABDOMEN: BS present, soft, NTND Extremities: no peripheral edema noted SKIN: Warm, dry, normal turgor, no rashes or lesions noted Laboratory Results - last 24 hr 04/01/18 04/01/18 04/01/18 11:49 17:39 21:31 WBC RBC Hgb Hct MCV MCH MCHC RDW Plt Count MPV Absolute Neuts (auto) Neutrophils % Lymphocytes % Monocytes % Eosinophils % Basophils % Nucleated RBC % Anticoagulation Therapy Puncture Site ABG pH ABG pCO2 at Pt Temp ABG pO2 at Pt Temp ABG HCO3 ABG O2 Sat (Measured) ABG O2 Content ABG Base Excess Petey Test O2 Delivery Device Oxygen Flow Rate Vent Mode Vent Rate Mechanical Rate PEEP Pressure Support Vent Sodium Potassium Chloride Carbon Dioxide Anion Gap BUN Creatinine Creat Clearance w eGFR POC Glucometer 208.17263 241.74493 199.09360 Random Glucose Calcium Phosphorus Magnesium Total Bilirubin AST ALT Alkaline Phosphatase Total Protein Albumin 04/02/18 04/02/18 04/02/18 05:30 05:30 05:34 WBC 16.6 H RBC 3.85 L Hgb 10.0 L Hct 30.6 L MCV 79.5 L MCH 26.1 MCHC 32.8 RDW 14.6 Plt Count 354 MPV 9.3 Absolute Neuts (auto) 12.9 H Neutrophils % 77.9 Lymphocytes % 10.6 Monocytes % 7.1 Eosinophils % 3.2 Basophils % 1.2 Nucleated RBC % 0 Anticoagulation Therapy Puncture Site ABG pH ABG pCO2 at Pt Temp ABG pO2 at Pt Temp ABG HCO3 ABG O2 Sat (Measured) ABG O2 Content ABG Base Excess Petey Test O2 Delivery Device Oxygen Flow Rate Vent Mode Vent Rate Mechanical Rate PEEP Pressure Support Vent Sodium 146 H Potassium 3.7 Chloride 108 H Carbon Dioxide 34 H Anion Gap 5 L BUN 32 H Creatinine 0.8 Creat Clearance w eGFR > 60 POC Glucometer [phone] Random Glucose 170 H Calcium 7.9 L Phosphorus 4.0 Magnesium 2.1 Total Bilirubin 0.4 AST 45 H ALT 34 Alkaline Phosphatase 59 Total Protein 4.9 L Albumin 1.4 L 04/02/18 06:30 WBC RBC Hgb Hct MCV MCH MCHC RDW Plt Count MPV Absolute Neuts (auto) Neutrophils % Lymphocytes % Monocytes % Eosinophils % Basophils % Nucleated RBC % Anticoagulation Therapy No Result Required. Puncture Site Right radial ABG pH 7.40 ABG pCO2 at Pt Temp 53.6 H ABG pO2 at Pt Temp 68.7 L ABG HCO3 32.4 H ABG O2 Sat (Measured) 91.6 ABG O2 Content 17.0 ABG Base Excess 6.5 H Petey Test Positive O2 Delivery Device No Result Required. Oxygen Flow Rate 40 Vent Mode No Result Required. Vent Rate 14 Mechanical Rate No Result Required. PEEP 8.0 Pressure Support Vent No Result Required. Sodium Potassium Chloride Carbon Dioxide Anion Gap BUN Creatinine Creat Clearance w eGFR POC Glucometer Random Glucose Calcium Phosphorus Magnesium Total Bilirubin AST ALT Alkaline Phosphatase Total Protein Albumin Active Medications Generic Name Dose Route Start Last Admin Trade Name Darenq PRN Reason Stop Dose Admin Acetaminophen 1,000 mg 03/26/18 19:02 03/29/18 11:59 Ofirmev Injection - IVPB 1,000 mg Q6H PRN Administration FEVER Albuterol/Ipratropium 1 amp 03/26/18 05:47 Duoneb - NEB Q4H PRN SHORTNESS OF BREATH Amino Acids 30 ml 03/27/18 17:30 04/02/18 08:46 Prosource No Carb Liquid Pkt PO 30 ml BID@0800,1730 HOLLAND Administration Amlodipine Besylate 5 mg 04/01/18 11:45 04/02/18 09:23 Norvasc - PO 5 mg DAILY HOLLAND Administration Chlorhexidine Gluconate 1 applic 03/26/18 22:00 04/01/18 21:14 Hibiclens For Decolonization - TP 1 applic HS HOLLAND Administration Chlorhexidine Gluconate 15 ml 03/28/18 10:00 04/02/18 09:24 Peridex - MM 15 ml BID HOLLAND Administration Enoxaparin Sodium 90 mg 03/29/18 13:15 04/02/18 09:24 Lovenox - SQ 90 mg BID HOLLAND Administration Levofloxacin 750 mg in 150 mls @ 150 mls/hr 03/26/18 16:30 04/02/18 09:23 Levaquin 750 Mg Premixed Ivpb - IVPB 150 mls/hr DAILY HOLLAND Administration Protocol Vancomycin HCl 1,000 mg in 250 mls @ 166.667 mls/hr 03/29/18 16:30 04/02/18 05:00 Vancomycin (Pre-Docked) IVPB 166.667 mls/hr Q12H HO[place]AND Administration Protocol Propofol 1,000,000 mcg in 100 mls @ 2.619 mls/hr 04/01/18 12:45 04/01/18 16: 43 Diprivan - IVPB 25 mcg/kg/min TITR HOLLAND 13.095 mls/hr Titration Protocol 5 MCG/KG/MIN Insulin Aspart 1 vial 03/28/18 08:30 04/02/18 06:10 Novolog Vial Sliding Scale - SQ Not Given Q6HPO HOLLAND Protocol Insulin Detemir 22 units 04/01/18 09:26 04/02/18 06:13 Levemir Vial SQ 22 units BID@0700,2200 HO[place]AND Administration Lactobacillus Acidophilus 1 tab 03/31/18 12:00 04/02/18 09:23 Bacid - PO 1 tab DAILY HO[place]AND Administration Metoprolol Tartrate 12.5 mg 03/28/18 12:15 04/02/18 09:23 Lopressor - PO 12.5 mg BID HO[place]AND Administration Pantoprazole Sodium 40 mg 03/26/18 12:00 04/02/18 10:15 Protonix Iv IVPUSH 40 mg BID HOLLAND Administration ASSESSMENT/PLAN: 62 year old male who presented for shortness of breath, fever, chills, malaise and was found to have complete left lung white out on CXR, new onset atrial fibrillation, and DKA. Patient admitted to ICU for further monitoring and management. Found w/ presum pos legionella antigen on abx, intubated and sedated. will try for CPAP and extubation today NEURO: sedated and Intubated will try for CPAP and extubation today PULMONARY #Acute Hypoxic Respiratory failure - will try for CPAP and extubation today -Likely secondary to Post obstructive Pneumonia from total white out and mass in the left lung. -CT showing consolidation of entire L lung and post R lung c/w PNA -legionella antigen presumptive positive, serum legionella -c/w vancomycin and levaquin, per ID -monitor QTc, amio was dcd -daily ABG -taper FiO2 to keep SpO2 >90% -CPAP trial today -s/p steroids -CXR shows improvement of L side -daily CXR -s/p Lasix 40 IV x2 INFECTIOUS DISEASE #Sepsis Secondary to Bilateral Pneumonia -afebrile overnight -central line removed 03/29/18, Patient maintaining good MAP and not on pressers. -legionella antigen presumptive positive -c/w vancomycin and levaquin -Sputum, Blood cultures neg -ID consult -s/p steroids -bacid CARDIOLOGY #Atrial Fibrillation w/ RVR HR remains ctl -dc Heparin drip for AC -lovenox 90 bid, Cr 1 -c/w metop 12.5 bid PO for rate ctl -ECHO RV ystolic 30-40, nl LVSF, nl EF -Cardiology consult -central line removed 03/29/18, Patient maintaining good MAP and not on pressers. pt has 2 good peripheral lines #HTN Monitor CVP 8-12 -bp soft here initially, home meds held, now resumed bb. -c/w norvasc RENAL [place] maintaining good UOP s/p Lasix 40 IV x2 Endocrine #hyperglycemia ISS levemir 22U, per primary team HEMATOLOGY -H/H now stable - Continue to Trend. Will transfuse if less than 7 #Elevated INR -possible malignancy -Patient denies taking Coumadin, or any blood thinners. Denies alcohol use. -Continue to monitor F/E/N -no IVF at this time -replete prn -stop enteral feeds, pt off sedation Prophylaxis -c/w lovenox 90 bid for DVT/A-fib -protonix bid Disposition -Full code -will try for CPAP and extubation today -ICU monitoring Visit type - Emergency Visit Emergency Visit: Yes ED Registration Date: 03/25/18 Care time: The patient presented to the Emergency Department on the above date and was hospitalized for further evaluation of their emergent condition. - New Patient This patient is new to me today: Yes Date on this admission: 04/02/18 - Critical Care Critical Care patient: Yes Total Critical Care Time (in minutes): 35 Critical Care Statement: The care of this patient involved high complexity decision making to prevent further life threatening deterioration of the patient 's condition and/or to evaluate & treat vital organ system(s) failure or risk of failure.
--- NOTE | 2018-04-02 12:05 | PN ---
Progress Note (short form) - Note Progress Note: Chief Complaint: resp failure History of Present Illness: intubated/sedated Current Medications Generic Name Dose Route Start Last Admin Trade Name Pollo PRN Reason Stop Dose Admin Acetaminophen 1,000 mg 03/26/18 19:02 03/29/18 11:59 Ofirmev Injection - IVPB 1,000 mg Q6H PRN Administration FEVER Albuterol/Ipratropium 1 amp 03/26/18 05:47 Duoneb - NEB Q4H PRN SHORTNESS OF BREATH Amino Acids 30 ml 03/27/18 17:30 04/02/18 08:46 Prosource No Carb Liquid Pkt PO 30 ml BID@0800,1730 HOLLAND Administration Amlodipine Besylate 5 mg 04/01/18 11:45 04/02/18 09:23 Norvasc - PO 5 mg DAILY HOLLAND Administration Chlorhexidine Gluconate 1 applic 03/26/18 22:00 04/01/18 21:14 Hibiclens For Decolonization - TP 1 applic HS HOLLAND Administration Chlorhexidine Gluconate 15 ml 03/28/18 10:00 04/02/18 09:24 Peridex - MM 15 ml BID HOLLAND Administration Enoxaparin Sodium 90 mg 03/29/18 13:15 04/02/18 09:24 Lovenox - SQ 90 mg BID HOLLAND Administration Levofloxacin 750 mg in 150 mls @ 150 mls/hr 03/26/18 16:30 04/02/18 09:23 Levaquin 750 Mg Premixed Ivpb - IVPB 150 mls/hr DAILY HOLLAND Administration Protocol Vancomycin HCl 1,000 mg in 250 mls @ 166.667 mls/hr 03/29/18 16:30 04/02/18 05:00 Vancomycin (Pre-Docked) IVPB 166.667 mls/hr Q12H HOLLAND Administration Protocol Propofol 1,000,000 mcg in 100 mls @ 2.619 mls/hr 04/01/18 12:45 04/01/18 16: 43 Diprivan - IVPB 25 mcg/kg/min TITR HOLLAND 13.095 mls/hr Titration Protocol 5 MCG/KG/MIN Insulin Aspart 1 vial 03/28/18 08:30 04/02/18 06:10 Novolog Vial Sliding Scale - SQ Not Given Q6HPO HOLLAND Protocol Insulin Detemir 22 units 04/01/18 09:26 04/02/18 06:13 Levemir Vial SQ 22 units BID@0700,2200 HO[place]AND Administration Lactobacillus Acidophilus 1 tab 03/31/18 12:00 04/02/18 09:23 Bacid - PO 1 tab DAILY HO[place]AND Administration Metoprolol Tartrate 12.5 mg 03/28/18 12:15 04/02/18 09:23 Lopressor - PO 12.5 mg BID HOLLAND Administration Pantoprazole Sodium 40 mg 03/26/18 12:00 04/02/18 10:15 Protonix Iv IVPUSH 40 mg BID HOLLAND Administration - Objective Vital Signs: Vital Signs Period Temp Pulse Resp BP Sys/Santacruz Pulse Ox Last 24 Hr 98.2 F-99.1 F 50-90 - 109-187/57-92 93-98 Constitutional: Yes: No Distress, Calm, intubated Cardiovascular: Yes: Regular Rate and Rhythm, S1, S2, Other (PMI non diplaced). No: Gallop, Murmur Respiratory: Yes: +rhonchi. No: Accessory Muscle Use Gastrointestinal: Yes: Normal Bowel Sounds, Soft. No: Tenderness Extremities: No: Cold Edema: No Integumentary: No: Jaundice Neurological:sedated Psychiatric: No: Agitated CBC, BMP 04/02/18 05:30 04/02/18 05:30 ct chest: b/l pna ecg: afib vr 154, no ischemic changes, nl qtc ecg 03/30 sinus, QTc 403 (stable) echo 03/18: nl LVSF. nl RV. nl LA. mild MR/TR. RVSP 30-40 tele: sinus, brief PAT a/p: 62 m hx dm, hld, htn here with fever, leg wound. sepsis, PNA, acute resp failure: -has sahu abscess as well as b/l pna -cont abx per ID/crit care -vent management per ICU team -no signs chf or acs -no pressor requirement at present, bp stable afib, rvr: -unknown if new onset -in er started on dilt gtt and amio gtt-->sinus -cont metoprolol -chadsvasc 2 warrants ac, on lovenox SONIDO: -bun/creat up 03/27, ? intravasc vol depletion in setting of DKA -improved with IVF dm: -on insulin -per crit care htn: -cont bb, dedec
[2018-04-02] MEDS: FENTANYL INJECTION 500 MCG in DEXTROSE 5%-WATER - 90 ML IVPB SCH ×2 (12:27→16:35)
[2018-04-02] MEDS: PROPOFOL 1,000,000 MCG/100 ML VIAL IVPB SCH ×2 (12:27→16:17)
--- NOTE | 2018-04-02 12:54 | PN ---
Teaching Attending Note Name of Resident: Alexx Rabago ATTENDING PHYSICIAN STATEMENT I saw and evaluated the patient. I reviewed the resident's note and discussed the case with the resident. I agree with the resident's findings and plan as documented. SUBJECTIVE: Patient seen and examined in the ICU. Remains intubated on AC mode of vent. Arouable. Placed on CPAP. After about 45 minutes became very tachypneic and started to desaturate. CXR: No gross change in bilateral infiltrates OBJECTIVE: Intake & Output 03/30/18 03/31/18 04/01/18 04/02/18 23:59 23:59 23:59 23:59 Intake Total 1710 2527.2 3136.9 Output Total 1900 3000 3280 200 Balance -190 -472.8 -143.1 -200 Weight 193 lb 12.581 oz 193 lb 12.581 oz 192 lb 7.417 oz 182 lb 12.211 oz Last Vital Signs Temp Pulse Resp BP Pulse Ox 98.6 F 84 16 187/88 H 93 L 04/02/18 10:00 04/02/18 12:00 04/02/18 12:00 04/02/18 12:00 04/02/18 11:43 Active Medications Acetaminophen (Ofirmev Injection -) 1,000 mg IVPB Q6H PRN PRN Reason: FEVER Last Admin: 03/29/18 11:59 Dose: 1,000 mg Albuterol/Ipratropium (Duoneb -) 1 amp NEB Q4H PRN PRN Reason: SHORTNESS OF BREATH Amino Acids (Prosource No Carb Liquid Pkt) 30 ml PO BID@0800,1730 [facility] Last Admin: 04/02/18 08:46 Dose: 30 ml Amlodipine Besylate (Norvasc -) 5 mg PO DAILY [facility] Last Admin: 04/02/18 09:23 Dose: 5 mg Chlorhexidine Gluconate (Hibiclens For Decolonization -) 1 applic TP HS [facility] Last Admin: 04/01/18 21:14 Dose: 1 applic Chlorhexidine Gluconate (Peridex -) 15 ml MM BID [facility] Last Admin: 04/02/18 09:24 Dose: 15 ml Enoxaparin Sodium (Lovenox -) 90 mg SQ BID [facility] Last Admin: 04/02/18 09:24 Dose: 90 mg Levofloxacin (Levaquin 750 Mg Premixed Ivpb -) 750 mg in 150 mls @ 150 mls/hr IVPB DAILY [facility]; Protocol Last Admin: 04/02/18 09:23 Dose: 150 mls/hr Vancomycin HCl (Vancomycin (Pre-Docked)) 1,000 mg in 250 mls @ 166.667 mls/hr IVPB Q12H [facility]; Protocol Last Admin: 04/02/18 05:00 Dose: 166.667 mls/hr Propofol (Diprivan -) 1,000,000 mcg in 100 mls @ 2.619 mls/hr IVPB TITR [facility]; Protocol Last Admin: 04/02/18 12:27 Dose: 30 mcg/kg/min, 15.714 mls/hr Fentanyl 500 mcg/ Dextrose 100 mls @ 5 mls/hr IVPB TITR [facility]; Protocol Last Admin: 04/02/18 12:27 Dose: 100 mcg/hr, 20 mls/hr Insulin Aspart (Novolog Vial Sliding Scale -) 1 vial SQ Q6HPO [facility]; Protocol Last Admin: 04/02/18 12:16 Dose: 4 units Insulin Detemir (Levemir Vial) 22 units SQ BID@0700,2200 [facility] Last Admin: 04/02/18 06:13 Dose: 22 units Lactobacillus Acidophilus (Bacid -) 1 tab PO DAILY [facility] Last Admin: 04/02/18 09:23 Dose: 1 tab Metoprolol Tartrate (Lopressor -) 12.5 mg PO BID [facility] Last Admin: 04/02/18 09:23 Dose: 12.5 mg Pantoprazole Sodium (Protonix Iv) 40 mg IVPUSH BID [facility] Last Admin: 04/02/18 10:15 Dose: 40 mg Gen: intubated, arousable Heart: RRR Lung: scattered rhonchi Abd: soft, nontender Ext: + edema Laboratory Results - last 24 hr 04/01/18 04/01/18 04/01/18 11:49 17:39 21:31 WBC RBC Hgb Hct MCV MCH MCHC RDW Plt Count MPV Absolute Neuts (auto) Neutrophils % Lymphocytes % Monocytes % Eosinophils % Basophils % Nucleated RBC % Anticoagulation Therapy Puncture Site ABG pH ABG pCO2 at Pt Temp ABG pO2 at Pt Temp ABG HCO3 ABG O2 Sat (Measured) ABG O2 Content ABG Base Excess Petey Test O2 Delivery Device Oxygen Flow Rate Vent Mode Vent Rate Mechanical Rate PEEP Pressure Support Vent Sodium Potassium Chloride Carbon Dioxide Anion Gap BUN Creatinine Creat Clearance w eGFR POC Glucometer 208.53526 241.51746 199.59897 Random Glucose Calcium Phosphorus Magnesium Total Bilirubin AST ALT Alkaline Phosphatase Total Protein Albumin 04/02/18 04/02/18 04/02/18 05:30 05:30 05:34 WBC 16.6 H RBC 3.85 L Hgb 10.0 L Hct 30.6 L MCV 79.5 L MCH 26.1 MCHC 32.8 RDW 14.6 Plt Count 354 MPV 9.3 Absolute Neuts (auto) 12.9 H Neutrophils % 77.9 Lymphocytes % 10.6 Monocytes % 7.1 Eosinophils % 3.2 Basophils % 1.2 Nucleated RBC % 0 Anticoagulation Therapy Puncture Site ABG pH ABG pCO2 at Pt Temp ABG pO2 at Pt Temp ABG HCO3 ABG O2 Sat (Measured) ABG O2 Content ABG Base Excess Petey Test O2 Delivery Device Oxygen Flow Rate Vent Mode Vent Rate Mechanical Rate PEEP Pressure Support Vent Sodium 146 H Potassium 3.7 Chloride 108 H Carbon Dioxide 34 H Anion Gap 5 L BUN 32 H Creatinine 0.8 Creat Clearance w eGFR > 60 POC Glucometer 183.09261 Random Glucose 170 H Calcium 7.9 L Phosphorus 4.0 Magnesium 2.1 Total Bilirubin 0.4 AST 45 H ALT 34 Alkaline Phosphatase 59 Total Protein 4.9 L Albumin 1.4 L 04/02/18 04/02/18 06:30 11:56 WBC RBC Hgb Hct MCV MCH MCHC RDW Plt Count MPV Absolute Neuts (auto) Neutrophils % Lymphocytes % Monocytes % Eosinophils % Basophils % Nucleated RBC % Anticoagulation Therapy No Result Required. Puncture Site Right radial ABG pH 7.40 ABG pCO2 at Pt Temp 53.6 H ABG pO2 at Pt Temp 68.7 L ABG HCO3 32.4 H ABG O2 Sat (Measured) 91.6 ABG O2 Content 17.0 ABG Base Excess 6.5 H Petey Test Positive O2 Delivery Device No Result Required. Oxygen Flow Rate 40 Vent Mode No Result Required. Vent Rate 14 Mechanical Rate No Result Required. PEEP 8.0 Pressure Support Vent No Result Required. Sodium Potassium Chloride Carbon Dioxide Anion Gap BUN Creatinine Creat Clearance w eGFR POC Glucometer 206.79701 Random Glucose Calcium Phosphorus Magnesium Total Bilirubin AST ALT Alkaline Phosphatase Total Protein Albumin ASSESSMENT AND PLAN: Acute Hypoxic Respiratory Failure Legionella Pneumonia Severe Sepsis Acute Kidney Injury Lactic Acidosis ARDS Atrial Fibrillation with RVR HTN DM - Lasix today - continue antibiotics - monitor QTc - rate control - continue anticoagulation - Daily assessment for Lasix - monitor urine output, creatinine - low tidal volume ventilation 6cc/kg/IBW - keep Pplat <30 - taper FiO2, PEEP to keep SpO2 >90% - inhaled bronchodilators - enteral feeds - Hold sedation to assess mental status - Attempt repeat spontaneous breathing trials as tolerated - hope to extubate in next 1-2 days - DVT/GI prophylaxis Dr Stephens Critical care time spent in reviewing chart, evaluating patient and formulating plan 35 min
[2018-04-02] MEDS ORDERED: FUROSEMIDE 40 MG/4 ML INJECTABLE VIAL IVPUSH ONE (13:30)
[2018-04-02 14:21] LABS: ANISOCYTOSIS 1+; MACROCYTOSIS 0; OVALOCYTE 1+; PLATELET ESTIMATE NORMAL; TARGET CELLS 1+; TEAR DROP CELLS 1+
--- NOTE | 2018-04-02 18:10 | PN ---
Progress Note, Physician History of Present Illness: Remains intubated Weaning attempt not successful No acute distress Afebrile WBC improved - Current Medication List Current Medications: Active Medications Acetaminophen (Ofirmev Injection -) 1,000 mg IVPB Q6H PRN PRN Reason: FEVER Last Admin: 03/29/18 11:59 Dose: 1,000 mg Albuterol/Ipratropium (Duoneb -) 1 amp NEB Q4H PRN PRN Reason: SHORTNESS OF BREATH Amino Acids (Prosource No Carb Liquid Pkt) 30 ml PO BID@0800,1730 [facility] Last Admin: 04/02/18 08:46 Dose: 30 ml Amlodipine Besylate (Norvasc -) 5 mg PO DAILY [facility] Last Admin: 04/02/18 09:23 Dose: 5 mg Chlorhexidine Gluconate (Hibiclens For Decolonization -) 1 applic TP HS [facility] Last Admin: 04/01/18 21:14 Dose: 1 applic Chlorhexidine Gluconate (Peridex -) 15 ml MM BID [facility] Last Admin: 04/02/18 09:24 Dose: 15 ml Enoxaparin Sodium (Lovenox -) 90 mg SQ BID [facility] Last Admin: 04/02/18 09:24 Dose: 90 mg Levofloxacin (Levaquin 750 Mg Premixed Ivpb -) 750 mg in 150 mls @ 150 mls/hr IVPB DAILY [facility]; Protocol Last Admin: 04/02/18 09:23 Dose: 150 mls/hr Vancomycin HCl (Vancomycin (Pre-Docked)) 1,000 mg in 250 mls @ 166.667 mls/hr IVPB Q12H [facility]; Protocol Last Admin: 04/02/18 15:29 Dose: 166.667 mls/hr Propofol (Diprivan -) 1,000,000 mcg in 100 mls @ 2.619 mls/hr IVPB TITR [facility]; Protocol Last Admin: 04/02/18 16:17 Dose: 30 mcg/kg/min, 15.714 mls/hr Fentanyl 500 mcg/ Dextrose 100 mls @ 5 mls/hr IVPB TITR [facility]; Protocol Last Admin: 04/02/18 16:35 Dose: 100 mcg/hr, 20 mls/hr Insulin Aspart (Novolog Vial Sliding Scale -) 1 vial SQ Q6HPO [facility]; Protocol Last Admin: 04/02/18 12:16 Dose: 4 units Insulin Detemir (Levemir Vial) 22 units SQ BID@0700,2200 [facility] Last Admin: 04/02/18 06:13 Dose: 22 units Lactobacillus Acidophilus (Bacid -) 1 tab PO DAILY [facility] Last Admin: 04/02/18 09:23 Dose: 1 tab Metoprolol Tartrate (Lopressor -) 12.5 mg PO BID [facility] Last Admin: 04/02/18 09:23 Dose: 12.5 mg Pantoprazole Sodium (Protonix Iv) 40 mg IVPUSH BID [facility] Last Admin: 04/02/18 10:15 Dose: 40 mg - Objective Vital Signs: Vital Signs Temperature 98.8 F 04/02/18 14:00 Pulse Rate 75 04/02/18 16:00 Respiratory Rate 16 04/02/18 17:13 Blood Pressure 168/75 04/02/18 16:00 O2 Sat by Pulse Oximetry (%) 93 L 04/02/18 11:43 Constitutional: Yes: No Distress Cardiovascular: Yes: Regular Rate and Rhythm, S1, S2 Respiratory: Yes: Mechanically Ventilated Gastrointestinal: Yes: Normal Bowel Sounds, Soft. No: Tenderness Edema: Yes Labs: CBC, BMP 04/02/18 05:30 04/02/18 05:30 INR, PTT INR 1.51 (0.83-1.09) H 03/26/18 05:13 Assessment/Plan Multilobar legionella pneumonia Respiratory failure Sepsis secondary to lung source Leukocytosis improved lactic acidosis + Wound c/s MRSA Continue levaquin/ vancomycin Ventilatory support Weaning as tolerated Contact precautions for + wound c/s MRSA
[2018-04-02] MEDS ORDERED: METOPROLOL TARTRATE 5 MG/5 ML VIAL IVPUSH PRN (19:17)
--- NOTE | 2018-04-02 19:28 | PN ---
Physical Exam: SUBJECTIVE: Patient seen and examined at bedside. No acute events overnight. Failed CPAP trial. Back on AC mode of vent. OBJECTIVE: Vital Signs Period Temp Pulse Resp BP Sys/Santacruz Pulse Ox Last 24 Hr 98.2 F-98.8 F 50-88 14-26 109-187/57-92 93-98 GENERAL: Intubated and sedated HEAD: NC/At LUNGS: Coarse breath sounds b/l HEART: Irregular rhythm appreciated. ABDOMEN: Soft ND, BS audible all 4 quadrants. EXTREMITIES:No CCE SKIN: , no rashes or lesions noted Laboratory Results - last 24 hr 04/01/18 04/01/18 04/01/18 11:49 17:39 21:31 WBC RBC Hgb Hct MCV MCH MCHC RDW Plt Count MPV Absolute Neuts (auto) Neutrophils % Neutrophils % (Manual) Band Neutrophils % Lymphocytes % Lymphocytes % (Manual) Monocytes % Monocytes % (Manual) Eosinophils % Eosinophils % (Manual) Basophils % Basophils % (Manual) Myelocytes % (Man) Promyelocytes % (Man) Blast Cells % (Manual) Nucleated RBC % Metamyelocytes Hypochromia Platelet Estimate Platelet Comment Polychromasia Poikilocytosis Anisocytosis Microcytosis Macrocytosis Target Cells Tear Drop Cells Ovalocytes Anticoagulation Therapy Puncture Site ABG pH ABG pCO2 at Pt Temp ABG pO2 at Pt Temp ABG HCO3 ABG O2 Sat (Measured) ABG O2 Content ABG Base Excess Petey Test O2 Delivery Device Oxygen Flow Rate Vent Mode Vent Rate Mechanical Rate PEEP Pressure Support Vent Sodium Potassium Chloride Carbon Dioxide Anion Gap BUN Creatinine Creat Clearance w eGFR POC Glucometer 208.71842 241.85384 199.15379 Random Glucose Calcium Phosphorus Magnesium Total Bilirubin AST ALT Alkaline Phosphatase Total Protein Albumin 04/02/18 04/02/18 04/02/18 05:30 05:30 05:34 WBC 16.6 H RBC 3.85 L Hgb 10.0 L Hct 30.6 L MCV 79.5 L MCH 26.1 MCHC 32.8 RDW 14.6 Plt Count 354 MPV 9.3 Absolute Neuts (auto) 12.9 H Neutrophils % 77.9 Neutrophils % (Manual) 58.9 Band Neutrophils % 7.4 Lymphocytes % 10.6 Lymphocytes % (Manual) 11.6 D Monocytes % 7.1 Monocytes % (Manual) 4 Eosinophils % 3.2 Eosinophils % (Manual) 3.2 D Basophils % 1.2 Basophils % (Manual) 0.0 Myelocytes % (Man) 2 D Promyelocytes % (Man) 0 D Blast Cells % (Manual) 0 Nucleated RBC % 0 Metamyelocytes 2 D Hypochromia 1+ Platelet Estimate Normal Platelet Comment Present Polychromasia 1+ Poikilocytosis 0 Anisocytosis 1+ Microcytosis 0 Macrocytosis 0 Target Cells 1+ Tear Drop Cells 1+ Ovalocytes 1+ Anticoagulation Therapy Puncture Site ABG pH ABG pCO2 at Pt Temp ABG pO2 at Pt Temp ABG HCO3 ABG O2 Sat (Measured) ABG O2 Content ABG Base Excess Petey Test O2 Delivery Device Oxygen Flow Rate Vent Mode Vent Rate Mechanical Rate PEEP Pressure Support Vent Sodium 146 H Potassium 3.7 Chloride 108 H Carbon Dioxide 34 H Anion Gap 5 L BUN 32 H Creatinine 0.8 Creat Clearance w eGFR > 60 POC Glucometer 183.91689 Random Glucose 170 H Calcium 7.9 L Phosphorus 4.0 Magnesium 2.1 Total Bilirubin 0.4 AST 45 H ALT 34 Alkaline Phosphatase 59 Total Protein 4.9 L Albumin 1.4 L 04/02/18 04/02/18 04/02/18 06:30 11:56 17:55 WBC RBC Hgb Hct MCV MCH MCHC RDW Plt Count MPV Absolute Neuts (auto) Neutrophils % Neutrophils % (Manual) Band Neutrophils % Lymphocytes % Lymphocytes % (Manual) Monocytes % Monocytes % (Manual) Eosinophils % Eosinophils % (Manual) Basophils % Basophils % (Manual) Myelocytes % (Man) Promyelocytes % (Man) Blast Cells % (Manual) Nucleated RBC % Metamyelocytes Hypochromia Platelet Estimate Platelet Comment Polychromasia Poikilocytosis Anisocytosis Microcytosis Macrocytosis Target Cells Tear Drop Cells Ovalocytes Anticoagulation Therapy No Result Required. Puncture Site Right radial ABG pH 7.40 ABG pCO2 at Pt Temp 53.6 H ABG pO2 at Pt Temp 68.7 L ABG HCO3 32.4 H ABG O2 Sat (Measured) 91.6 ABG O2 Content 17.0 ABG Base Excess 6.5 H Petey Test Positive O2 Delivery Device No Result Required. Oxygen Flow Rate 40 Vent Mode No Result Required. Vent Rate 14 Mechanical Rate No Result Required. PEEP 8.0 Pressure Support Vent No Result Required. Sodium Potassium Chloride Carbon Dioxide Anion Gap BUN Creatinine Creat Clearance w eGFR POC Glucometer 206.96661 280.28752 Random Glucose Calcium Phosphorus Magnesium Total Bilirubin AST ALT Alkaline Phosphatase Total Protein Albumin Active Medications Generic Name Dose Route Start Last Admin Trade Name Pollo PRN Reason Stop Dose Admin Acetaminophen 1,000 mg 03/26/18 19:02 03/29/18 11:59 Ofirmev Injection - IVPB 1,000 mg Q6H PRN Administration FEVER Albuterol/Ipratropium 1 amp 03/26/18 05:47 Duoneb - NEB Q4H PRN SHORTNESS OF BREATH Amino Acids 30 ml 03/27/18 17:30 04/02/18 18:09 Prosource No Carb Liquid Pkt PO 30 ml BID@0800,1730 [facility] Administration Amlodipine Besylate 5 mg 04/01/18 11:45 04/02/18 09:23 Norvasc - PO 5 mg DAILY [facility] Administration Chlorhexidine Gluconate 1 applic 03/26/18 22:00 04/01/18 21:14 Hibiclens For Decolonization - TP 1 applic HS [facility] Administration Chlorhexidine Gluconate 15 ml 03/28/18 10:00 04/02/18 09:24 Peridex - MM 15 ml BID [facility] Administration Enoxaparin Sodium 90 mg 03/29/18 13:15 04/02/18 09:24 Lovenox - SQ 90 mg BID [facility] Administration Levofloxacin 750 mg in 150 mls @ 150 mls/hr 03/26/18 16:30 04/02/18 09:23 Levaquin 750 Mg Premixed Ivpb - IVPB 150 mls/hr DAILY [facility] Administration Protocol Vancomycin HCl 1,000 mg in 250 mls @ 166.667 mls/hr 03/29/18 16:30 04/02/18 15:29 Vancomycin (Pre-Docked) IVPB 166.667 mls/hr Q12H [facility] Administration Protocol Propofol 1,000,000 mcg in 100 mls @ 2.619 mls/hr 04/01/18 12:45 04/02/18 16: 17 Diprivan - IVPB 30 mcg/kg/min TITR [facility] 15.714 mls/hr Administration Protocol 5 MCG/KG/MIN Fentanyl 500 mcg/ Dextrose 100 mls @ 5 mls/hr 04/02/18 12:30 04/02/18 16:35 IVPB 100 mcg/hr TITR [facility] 20 mls/hr Administration Protocol 25 MCG/HR Insulin Aspart 1 vial 03/28/18 08:30 04/02/18 18:09 Novolog Vial Sliding Scale - SQ 6 units Q6HPO [facility] Administration Protocol Insulin Detemir 22 units 04/01/18 09:26 04/02/18 06:13 Levemir Vial SQ 22 units BID@0700,2200 [facility] Administration Lactobacillus Acidophilus 1 tab 03/31/18 12:00 04/02/18 09:23 Bacid - PO 1 tab DAILY [facility] Administration Metoprolol Tartrate 12.5 mg 03/28/18 12:15 04/02/18 09:23 Lopressor - PO 12.5 mg BID [facility] Administration Metoprolol Tartrate 5 mg 04/02/18 19:17 Lopressor Injection - IVPUSH Q4H PRN HYPERTENSION Pantoprazole Sodium 40 mg 03/26/18 12:00 04/02/18 10:15 Protonix Iv IVPUSH 40 mg BID [facility] Administration ASSESSMENT/PLAN: Patient is a 62 year old male with history of DM, HTN, HLD presents with complaint of shortness of breath for past five days. # Sepsis secondary to Pneumonia/Legionella Pneumonia -Chest xray 04/02/18--> B/L pulmonary infiltrates seen. No pneumothorax appreciated -Patient received Vancomycin and Zosyn in ED -Now on Levaquin day and Vanco. -Lactic acidosis resolved -Infectious disease Dr Rosenbaum on board -Urine/Blood cultures negative -Central line removed 03/29/18 -Currently on 40% FiO2. titrate down as tolerated. Maintain MAP > 65% -R Calf abscess Wound culture + for MRSA -Urine Culture + for Strep Agalactiae Group B # Acute respiratory failure -Likely secondary to the pneumonia -Vented on volume AC with 40% FiO2, PEEP 8. -F/U ABG -fio2 40% -Sedation vacactions periodically to assess for possible extubation # Afib -Patient denies history of Afib, or any cardiac history in past. -CHADsVASC score of 2 -Lovenox 90 bid -Cardiac monitoring -Cardiology on board -Lopressor 12.5 BID # Hypertension Lopressor 12.5 BID #IDDM -Levemir increased to 22 U SQ BID -A1c 11.5% # FEN -No Fluids -Monitor Electrolytes Glucerna 1.5 @ 20cc/hr. -Target volume: 1L volume -> 1500 kcals, 82g protein, 760ml water. -Feeds + prosource 30ml BID gives: 1620 kcals, 112 g protein # Prophylaxis -lovenox 90 bid # Disposition -Care per icu team Visit type - Emergency Visit Emergency Visit: Yes ED Registration Date: 03/25/18 Care time: The patient presented to the Emergency Department on the above date and was hospitalized for further evaluation of their emergent condition. - New Patient This patient is new to me today: No - Critical Care Critical Care patient: Yes Total Critical Care Time (in minutes): 35 Critical Care Statement: The care of this patient involved high complexity decision making to prevent further life threatening deterioration of the patient 's condition and/or to evaluate & treat vital organ system(s) failure or risk of failure. - Discharge Referral Referred to [facility] Med [facility].: No
[2018-04-02] MEDS: CHLORHEXIDINE GLUCONATE 4% CLEANSER FOR DECOLONIZATION TP SCH (21:31)
[2018-04-02] MEDS ORDERED: PROPOFOL 1,000,000 MCG/100 ML VIAL ONE (21:49)
[2018-04-03] MEDS: INSULIN SLIDING SCALE (NOVOLOG) 1 VIAL SQ SCH ×4 (01:00→17:37)
[2018-04-03 06:06] LABS: ARTERIAL BLD GAS O2 SATURATION 96.8 % (90-98.9); ARTERIAL BLOOD GAS BASE EXCESS 8.5 meq/l (-2-2); ARTERIAL BLOOD GAS PCO2 46.6 mmHg (35-45); ARTERIAL BLOOD GAS PO2 99.9 mmHg (80-100); ARTERIAL BLOOD GAS pH 7.46 (7.35-7.45)
[2018-04-03 06:10] LABS: BASO % 0.4 % (0-2.0); EOS % 1.3 % (0-4.5); HEMOGLOBIN 10.6 GM/dL (11.7-16.9); LYMPH % 6.6 % (8-40); MCH 26.1 pg (25.7-33.7); MCHC 33.2 g/dl (32.0-35.9); MEAN CELL VOLUME 78.7 fl (80-96); MEAN PLT VOLUME 9.5 fl (7.5-11.1); MONO % 7.6 % (3.8-10.2); NEUT % 84.1 % (42.8-82.8); PLATELET COUNT 412 K/MM3 (134-434); RBC 4.07 M/mm3 (4.00-5.60); RDW 14.7 % (11.9-15.9); WHITE BLOOD COUNT 16.4 K/mm3 (4.0-10.0)
[2018-04-03] MEDS: VANCOMYCIN 1 GRAM (PRE-DOCKED) 1,000 MG/250 ML BAG IVPB SCH ×2 (06:11→17:16)
[2018-04-03] MEDS: INSULIN (LEVEMIR) 100 UNITS/ML UNITS SQ SCH ×2 (06:12→21:14)
[2018-04-03] MEDS ORDERED: fentaNYL CITRATE 250 MCG/5 ML VIAL ONE ×3 (06:20→20:59)
[2018-04-03 06:33] LABS: ALBUMIN 1.6 g/dl (3.4-5.0); ALK PHOS 76 U/L (45-117); ANION GAP 7 MMOL/L (8-16); BILIRUBIN,TOTAL 0.4 mg/dL (0.2-1); BLOOD UREA NITROGEN 31 mg/dL (7-18); CALCIUM 7.9 mg/dL (8.5-10.1); CHLORIDE 106 mmol/L (98-107); CO2 32 mmol/L (21-32); MAGNESIUM 2.1 mg/dL (1.8-2.4); POTASSIUM 4.4 mmol/L (3.5-5.1); SGOT/AST 26 U/L (15-37); SGPT/ALT 36 U/L (13-61); SODIUM 146 mmol/L (136-145); TOT PROT 5.5 g/dl (6.4-8.2)
[2018-04-03 06:37] LABS: ALLENS TEST POSITIVE
[2018-04-03 06:51] LABS: GLUCOSE,RANDOM 321 mg/dL (74-106)
[2018-04-03] MEDS ORDERED: PT OWN MED DRAWER 7, Y5N ONE (09:23)
[2018-04-03] MEDS: METOPROLOL TARTRATE 25 MG TABLET (FP) PO SCH ×2 (09:29→21:13)
[2018-04-03] MEDS: PANTOPRAZOLE SODIUM 40 MG VIAL IVPUSH SCH ×2 (09:29→21:13)
[2018-04-03] MEDS: LACTOBACILLUS ACIDOPHILUS 1 TABLET PO SCH (09:29)
[2018-04-03] MEDS: amLODIPine BESYLATE 5 MG TABLET (FP) PO SCH (09:29)
[2018-04-03] MEDS: ENOXAPARIN NA (PORCINE) 100 MG/1 ML DISP.SYRIN SQ SCH ×2 (09:29→21:18)
[2018-04-03] MEDS: CHLORHEXIDINE GLUCONATE 0.12% 15ML CUP MM SCH ×2 (09:30→21:13)
[2018-04-03] MEDS: AMINO ACIDS/PROTEIN HYDROLYS 30 ML LIQUID.PKT PO SCH ×2 (09:30→17:17)
--- NOTE | 2018-04-03 09:54 | PN ---
Progress Note (short form) - Note Progress Note: remains intubated currently sedated Vital Signs Period Temp Pulse Resp BP Sys/Santacruz Pulse Ox Last 24 Hr 98.5 F-98.8 F 55-88 14- 117-187/57-88 93-97 cor-rrr lungs decreased bs at bases abd soft,nt ext no edema CBC, BMP 04/03/18 05:30 04/03/18 05:30 Microbiology 04/01/18 10:45 Transtracheal Aspiration Legionella Culture - Preliminary 03/27/18 05:30 Serum Legionella Serology - Final 03/25/18 19:55 Blood - Peripheral Venous Blood Culture - Final NO GROWTH AFTER 5 DAYS INCUBATION 03/25/18 19:55 Blood - Peripheral Venous Blood Culture - Final NO GROWTH AFTER 5 DAYS INCUBATION 03/26/18 10:13 Calf - Right Lateral Gram Stain - Final 03/26/18 10:13 Calf - Right Lateral Wound Culture - Final S Aureus 03/25/18 20:15 Abscess Gram Stain - Final 03/25/18 20:15 Abscess Wound Culture - Final Mr S Aureus 03/25/18 20:10 Urine - Urine Clean Catch Urine Culture - Final Strep Agalactiae Group B 03/26/18 10:13 Sputum - Endotrachea Suction/Ventilator Gram Stain - Final 03/26/18 10:13 Sputum - Endotrachea Suction/Ventilator Sputum Culture - Final NORMAL RESPIRATORY RAQUEL 03/26/18 10:21 Urine For Antigen Detection Legionella Antigen - Final 03/26/18 10:21 Urine For Antigen Detection Streptococcus pneumoniae Antigen (M - Final 03/25/18 19:25 Nasopharyngeal Swab Influenza Types A,B Antigen - Final 03/25/18 19:25 Nasopharyngeal Swab - Final Current Medications Acetaminophen (Ofirmev Injection -) 1,000 mg IVPB Q6H PRN PRN Reason: FEVER Last Admin: 03/29/18 11:59 Dose: 1,000 mg Albuterol/Ipratropium (Duoneb -) 1 amp NEB Q4H PRN PRN Reason: SHORTNESS OF BREATH Amino Acids (Prosource No Carb Liquid Pkt) 30 ml PO BID@0800,1730 [facility] Last Admin: 04/03/18 09:30 Dose: 30 ml Amlodipine Besylate (Norvasc -) 5 mg PO DAILY [facility] Last Admin: 04/03/18 09:29 Dose: 5 mg Chlorhexidine Gluconate (Hibiclens For Decolonization -) 1 applic TP HS [facility] Last Admin: 04/02/18 21:31 Dose: 1 applic Chlorhexidine Gluconate (Peridex -) 15 ml MM BID [facility] Last Admin: 04/03/18 09:30 Dose: 15 ml Enoxaparin Sodium (Lovenox -) 90 mg SQ BID [facility] Last Admin: 04/03/18 09:29 Dose: 90 mg Levofloxacin (Levaquin 750 Mg Premixed Ivpb -) 750 mg in 150 mls @ 150 mls/hr IVPB DAILY [facility]; Protocol Last Admin: 04/03/18 09:29 Dose: 150 mls/hr Vancomycin HCl (Vancomycin (Pre-Docked)) 1,000 mg in 250 mls @ 166.667 mls/hr IVPB Q12H [facility]; Protocol Last Admin: 04/03/18 06:11 Dose: 166.667 mls/hr Propofol (Diprivan -) 1,000,000 mcg in 100 mls @ 2.619 mls/hr IVPB TITR [facility]; Protocol Last Titration: 04/02/18 21:55 Dose: 60 mcg/kg/min, 31.428 mls/hr Fentanyl 500 mcg/ Dextrose 100 mls @ 5 mls/hr IVPB TITR [facility]; Protocol Last Admin: 04/02/18 16:35 Dose: 100 mcg/hr, 20 mls/hr Insulin Aspart (Novolog Vial Sliding Scale -) 1 vial SQ Q6HPO [facility]; Protocol Last Admin: 04/03/18 06:11 Dose: 8 units Insulin Detemir (Levemir Vial) 22 units SQ BID@0700,2200 [facility] Last Admin: 04/03/18 06:12 Dose: 22 units Lactobacillus Acidophilus (Bacid -) 1 tab PO DAILY [facility] Last Admin: 04/03/18 09:29 Dose: 1 tab Metoprolol Tartrate (Lopressor -) 12.5 mg PO BID [facility] Last Admin: 04/03/18 09:29 Dose: 12.5 mg Metoprolol Tartrate (Lopressor Injection -) 5 mg IVPUSH Q4H PRN PRN Reason: HYPERTENSION Pantoprazole Sodium (Protonix Iv) 40 mg IVPUSH BID [facility] Last Admin: 04/03/18 09:29 Dose: 40 mg cxray improved a/p legionella pneumonia respiratory failure +wound culture MRSA Diabetes day #9 vancomycin/levaquin clinically improving continue same antibiotics
--- NOTE | 2018-04-03 11:09 | PN ---
Progress Note (short form) - Note Progress Note: Chief Complaint: resp failure History of Present Illness: intubated/sedated Current Medications Acetaminophen (Ofirmev Injection -) 1,000 mg IVPB Q6H PRN PRN Reason: FEVER Last Admin: 03/29/18 11:59 Dose: 1,000 mg Albuterol/Ipratropium (Duoneb -) 1 amp NEB Q4H PRN PRN Reason: SHORTNESS OF BREATH Amino Acids (Prosource No Carb Liquid Pkt) 30 ml PO BID@0800,1730 [facility] Last Admin: 04/03/18 09:30 Dose: 30 ml Amlodipine Besylate (Norvasc -) 5 mg PO DAILY [facility] Last Admin: 04/03/18 09:29 Dose: 5 mg Chlorhexidine Gluconate (Hibiclens For Decolonization -) 1 applic TP HS [facility] Last Admin: 04/02/18 21:31 Dose: 1 applic Chlorhexidine Gluconate (Peridex -) 15 ml MM BID [facility] Last Admin: 04/03/18 09:30 Dose: 15 ml Enoxaparin Sodium (Lovenox -) 90 mg SQ BID [facility] Last Admin: 04/03/18 09:29 Dose: 90 mg Levofloxacin (Levaquin 750 Mg Premixed Ivpb -) 750 mg in 150 mls @ 150 mls/hr IVPB DAILY [facility]; Protocol Last Admin: 04/03/18 09:29 Dose: 150 mls/hr Vancomycin HCl (Vancomycin (Pre-Docked)) 1,000 mg in 250 mls @ 166.667 mls/hr IVPB Q12H [facility]; Protocol Last Admin: 04/03/18 06:11 Dose: 166.667 mls/hr Propofol (Diprivan -) 1,000,000 mcg in 100 mls @ 2.619 mls/hr IVPB TITR [facility]; Protocol Last Titration: 04/02/18 21:55 Dose: 60 mcg/kg/min, 31.428 mls/hr Fentanyl 500 mcg/ Dextrose 100 mls @ 5 mls/hr IVPB TITR [facility]; Protocol Last Admin: 04/02/18 16:35 Dose: 100 mcg/hr, 20 mls/hr Insulin Aspart (Novolog Vial Sliding Scale -) 1 vial SQ Q6HPO [facility]; Protocol Last Admin: 04/03/18 06:11 Dose: 8 units Insulin Detemir (Levemir Vial) 22 units SQ BID@0700,2200 [facility] Last Admin: 04/03/18 06:12 Dose: 22 units Lactobacillus Acidophilus (Bacid -) 1 tab PO DAILY [facility] Last Admin: 04/03/18 09:29 Dose: 1 tab Metoprolol Tartrate (Lopressor -) 12.5 mg PO BID [facility] Last Admin: 04/03/18 09:29 Dose: 12.5 mg Metoprolol Tartrate (Lopressor Injection -) 5 mg IVPUSH Q4H PRN PRN Reason: HYPERTENSION Pantoprazole Sodium (Protonix Iv) 40 mg IVPUSH BID [facility] Last Admin: 04/03/18 09:29 Dose: 40 mg - Objective Vital Signs: Vital Signs Period Temp Pulse Resp BP Sys/Santacruz Pulse Ox Last 24 Hr 98.5 F-100.3 F 60-88 14-26 117-188/57-88 93-97 Constitutional: Yes: No Distress, Calm, intubated Cardiovascular: Yes: Regular Rate and Rhythm, S1, S2, Other (PMI non diplaced). No: Gallop, Murmur Respiratory: Yes: +rhonchi. No: Accessory Muscle Use Gastrointestinal: Yes: Normal Bowel Sounds, Soft. No: Tenderness Extremities: No: Cold Edema: No Integumentary: No: Jaundice Neurological:sedated Psychiatric: No: Agitated ct chest: b/l pna ecg: afib vr 154, no ischemic changes, nl qtc ecg 03/30 sinus, QTc 403 (stable) echo 03/18: nl LVSF. nl RV. nl LA. mild MR/TR. RVSP 30-40 tele: sinus, brief PAT a/p: 62 m hx dm, hld, htn here with fever, leg wound. sepsis, PNA, acute resp failure: -has sahu abscess as well as b/l pna -cont abx per ID/crit care -vent management per ICU team -no signs chf or acs -no pressor requirement at present, bp stable afib, rvr: -unknown if new onset -in er started on dilt gtt and amio gtt-->sinus -cont metoprolol -chadsvasc 2 warrants ac, on lovenox SONIDO: -bun/creat up 03/27, ? intravasc vol depletion in setting of DKA -improved with IVF dm: -on insulin -per crit care htn: - elevated this AM prior to receiving meds, had been controlled prior - monitor, increase norvasc to 10 mg if not improving -cont bb, norvasc
[2018-04-03 11:38] LABS: ANISOCYTOSIS 1+; PLATELET ESTIMATE NORMAL
[2018-04-03] MEDS: FENTANYL INJECTION 500 MCG in DEXTROSE 5%-WATER - 90 ML IVPB SCH (13:01)
[2018-04-03] MEDS: PROPOFOL 1,000,000 MCG/100 ML VIAL IVPB SCH ×2 (13:02→18:04)
--- NOTE | 2018-04-03 14:19 | PN ---
Progress Note (short form) - Note Progress Note: SUBJECTIVE: Patient seen and examined in the ICU. 24HR: -failed SBT this am -continuing diuresis CXR: No gross change in bilateral infiltrates /pulm vasc congestion OBJECTIVE: Vital Signs Temp 99.2 F 04/03/18 14:00 Pulse 74 04/03/18 14:00 Resp 16 04/03/18 14:00 BP 120/59 L 04/03/18 14:00 Pulse Ox 98 04/03/18 10:00 Intake & Output 04/02/18 04/03/18 04/03/18 23:59 11:59 23:59 Intake Total 1270 1390 Output Total 2200 1000 600 Balance -930 390 -600 Weight 84.51 kg Intake: IV 400 660 DIPRIVAN - 1,000,000 mcg 200 420 In 100 ml @ 5 MCG/KG/MIN 2.619 mls/hr IVPB TITR [facility] Rx#:[id number] Sublimaze Injection - 500 200 240 Mcg In D5w - 90 ml @ 25 MCG/HR 5 mls/hr IVPB TITR [facility] Rx#:[id number] IVPB 400 250 Tube Feeding 300 360 Tube Irrigant 170 120 Output: Urine 2200 1000 600 Tracy 2200 1000 600 Other: Voiding Method Indwelling Catheter Indwelling Catheter Bowel Movement Yes Yes Active Medications Acetaminophen (Ofirmev Injection -) 1,000 mg IVPB Q6H PRN PRN Reason: FEVER Last Admin: 03/29/18 11:59 Dose: 1,000 mg Amino Acids (Prosource No Carb Liquid Pkt) 30 ml PO BID@0800,1730 [facility] Last Admin: 04/03/18 09:30 Dose: 30 ml Amlodipine Besylate (Norvasc -) 5 mg PO DAILY [facility] Last Admin: 04/03/18 09:29 Dose: 5 mg Chlorhexidine Gluconate (Hibiclens For Decolonization -) 1 applic TP HS [facility] Last Admin: 04/02/18 21:31 Dose: 1 applic Chlorhexidine Gluconate (Peridex -) 15 ml MM BID [facility] Last Admin: 04/03/18 09:30 Dose: 15 ml Enoxaparin Sodium (Lovenox -) 90 mg SQ BID [facility] Last Admin: 04/03/18 09:29 Dose: 90 mg Levofloxacin (Levaquin 750 Mg Premixed Ivpb -) 750 mg in 150 mls @ 150 mls/hr IVPB DAILY [facility]; Protocol Last Admin: 04/03/18 09:29 Dose: 150 mls/hr Vancomycin HCl (Vancomycin (Pre-Docked)) 1,000 mg in 250 mls @ 166.667 mls/hr IVPB Q12H [facility]; Protocol Last Admin: 04/03/18 06:11 Dose: 166.667 mls/hr Propofol (Diprivan -) 1,000,000 mcg in 100 mls @ 2.619 mls/hr IVPB TITR [facility]; Protocol Last Admin: 04/03/18 13:02 Dose: 50 mcg/kg/min, 26.19 mls/hr Fentanyl 500 mcg/ Dextrose 100 mls @ 5 mls/hr IVPB TITR [facility]; Protocol Last Admin: 04/03/18 13:01 Dose: 100 mcg/hr, 20 mls/hr Insulin Aspart (Novolog Vial Sliding Scale -) 1 vial SQ Q6HPO [facility]; Protocol Last Admin: 04/03/18 12:41 Dose: 8 units Insulin Detemir (Levemir Vial) 22 units SQ BID@0700,2200 [facility] Last Admin: 04/03/18 06:12 Dose: 22 units Lactobacillus Acidophilus (Bacid -) 1 tab PO DAILY [facility] Last Admin: 04/03/18 09:29 Dose: 1 tab Metoprolol Tartrate (Lopressor -) 12.5 mg PO BID [facility] Last Admin: 04/03/18 09:29 Dose: 12.5 mg Metoprolol Tartrate (Lopressor Injection -) 5 mg IVPUSH Q4H PRN PRN Reason: HYPERTENSION Pantoprazole Sodium (Protonix Iv) 40 mg IVPUSH BID [facility] Last Admin: 04/03/18 09:29 Dose: 40 mg Gen: intubated, arousable , follows simple commands Heart: RRR Lung: scattered rhonchi Abd: soft, nontender Ext: + edema, decreasing Laboratory Results - last 24 hr 04/02/18 04/02/18 04/03/18 05:30 17:55 05:30 WBC 16.4 H RBC 4.07 Hgb 10.6 L Hct 32.0 L MCV 78.7 L MCH 26.1 MCHC 33.2 RDW 14.7 Plt Count 412 MPV 9.5 Absolute Neuts (auto) 13.8 H Neutrophils % 84.1 H Neutrophils % (Manual) 58.9 79.2 D Band Neutrophils % 7.4 3.0 Lymphocytes % 6.6 L D Lymphocytes % (Manual) 11.6 D 6.9 L D Monocytes % 7.6 Monocytes % (Manual) 4 8 D Eosinophils % 1.3 Eosinophils % (Manual) 3.2 D 1.0 Basophils % 0.4 Basophils % (Manual) 0.0 0.0 Myelocytes % (Man) 2 D 1 D Promyelocytes % (Man) 0 D 0 Blast Cells % (Manual) 0 0 Nucleated RBC % 0 Metamyelocytes 2 D 1 D Hypochromia 1+ 0 Platelet Estimate Normal Normal Platelet Comment Present Polychromasia 1+ 1+ Poikilocytosis 0 0 Anisocytosis 1+ 1+ Microcytosis 0 1+ Macrocytosis 0 Target Cells 1+ Tear Drop Cells 1+ Ovalocytes 1+ Puncture Site ABG pH ABG pCO2 at Pt Temp ABG pO2 at Pt Temp ABG HCO3 ABG O2 Sat (Measured) ABG O2 Content ABG Base Excess Petey Test Oxygen Flow Rate Vent Rate PEEP Pressure Support Vent Sodium Potassium Chloride Carbon Dioxide Anion Gap BUN Creatinine Creat Clearance w eGFR POC Glucometer [phone] Random Glucose Calcium Phosphorus Magnesium Total Bilirubin AST ALT Alkaline Phosphatase Total Protein Albumin 04/03/18 04/03/18 04/03/18 05:30 05:35 05:50 WBC RBC Hgb Hct MCV MCH MCHC RDW Plt Count MPV Absolute Neuts (auto) Neutrophils % Neutrophils % (Manual) Band Neutrophils % Lymphocytes % Lymphocytes % (Manual) Monocytes % Monocytes % (Manual) Eosinophils % Eosinophils % (Manual) Basophils % Basophils % (Manual) Myelocytes % (Man) Promyelocytes % (Man) Blast Cells % (Manual) Nucleated RBC % Metamyelocytes Hypochromia Platelet Estimate Platelet Comment Polychromasia Poikilocytosis Anisocytosis Microcytosis Macrocytosis Target Cells Tear Drop Cells Ovalocytes Puncture Site Left radial ABG pH 7.46 H ABG pCO2 at Pt Temp 46.6 H ABG pO2 at Pt Temp 99.9 D ABG HCO3 33.0 H ABG O2 Sat (Measured) 96.8 ABG O2 Content 14.7 L ABG Base Excess 8.5 H Petey Test Positive Oxygen Flow Rate 68 Vent Rate 16 PEEP 5.0 Pressure Support Vent 450 Sodium 146 H Potassium 4.4 Chloride 106 Carbon Dioxide 32 Anion Gap 7 L BUN 31 H Creatinine 1.0 Creat Clearance w eGFR > 60 POC Glucometer [phone] Random Glucose 321 H* Calcium 7.9 L Phosphorus 4.0 Magnesium 2.1 Total Bilirubin 0.4 AST 26 ALT 36 Alkaline Phosphatase 76 Total Protein 5.5 L Albumin 1.6 L 04/03/18 12:37 WBC RBC Hgb Hct MCV MCH MCHC RDW Plt Count MPV Absolute Neuts (auto) Neutrophils % Neutrophils % (Manual) Band Neutrophils % Lymphocytes % Lymphocytes % (Manual) Monocytes % Monocytes % (Manual) Eosinophils % Eosinophils % (Manual) Basophils % Basophils % (Manual) Myelocytes % (Man) Promyelocytes % (Man) Blast Cells % (Manual) Nucleated RBC % Metamyelocytes Hypochromia Platelet Estimate Platelet Comment Polychromasia Poikilocytosis Anisocytosis Microcytosis Macrocytosis Target Cells Tear Drop Cells Ovalocytes Puncture Site ABG pH ABG pCO2 at Pt Temp ABG pO2 at Pt Temp ABG HCO3 ABG O2 Sat (Measured) ABG O2 Content ABG Base Excess Petey Test Oxygen Flow Rate Vent Rate PEEP Pressure Support Vent Sodium Potassium Chloride Carbon Dioxide Anion Gap BUN Creatinine Creat Clearance w eGFR POC Glucometer [phone] Random Glucose Calcium Phosphorus Magnesium Total Bilirubin AST ALT Alkaline Phosphatase Total Protein Albumin ASSESSMENT AND PLAN: Acute Hypoxic Respiratory Failure Legionella Pneumonia Severe Sepsis Acute Kidney Injury Lactic Acidosis ARDS Atrial Fibrillation with RVR HTN DM - Lasix for O>I - continue antibiotics - monitor QTc - rate control - continue anticoagulation - monitor urine output, creatinine - low tidal volume ventilation 6cc/kg/IBW - keep Pplat <30 - taper FiO2, PEEP to keep SpO2 >90% - inhaled bronchodilators - enteral feeds - Hold sedation to assess mental status - DVT/GI prophylaxis
--- NOTE | 2018-04-03 14:24 | PN ---
Progress Note (short form) - Note Progress Note: intubated/sedated Current Medications Generic Name Dose Route Start Last Admin Trade Name Frehortensia PRN Reason Stop Dose Admin Acetaminophen 1,000 mg 03/26/18 19:02 03/29/18 11:59 Ofirmev Injection - IVPB 1,000 mg Q6H PRN Administration FEVER Amino Acids 30 ml 03/27/18 17:30 04/03/18 09:30 Prosource No Carb Liquid Pkt PO 30 ml BID@0800,1730 [facility] Administration Amlodipine Besylate 5 mg 04/01/18 11:45 04/03/18 09:29 Norvasc - PO 5 mg DAILY [facility] Administration Chlorhexidine Gluconate 1 applic 03/26/18 22:00 04/02/18 21:31 Hibiclens For Decolonization - TP 1 applic HS [facility] Administration Chlorhexidine Gluconate 15 ml 03/28/18 10:00 04/03/18 09:30 Peridex - MM 15 ml BID [facility] Administration Enoxaparin Sodium 90 mg 03/29/18 13:15 04/03/18 09:29 Lovenox - SQ 90 mg BID [facility] Administration Levofloxacin 750 mg in 150 mls @ 150 mls/hr 03/26/18 16:30 04/03/18 09:29 Levaquin 750 Mg Premixed Ivpb - IVPB 150 mls/hr DAILY [facility] Administration Protocol Vancomycin HCl 1,000 mg in 250 mls @ 166.667 mls/hr 03/29/18 16:30 04/03/18 06:11 Vancomycin (Pre-Docked) IVPB 166.667 mls/hr Q12H [facility] Administration Protocol Propofol 1,000,000 mcg in 100 mls @ 2.619 mls/hr 04/01/18 12:45 04/03/18 13: 02 Diprivan - IVPB 50 mcg/kg/min TITR [facility] 26.19 mls/hr Administration Protocol 5 MCG/KG/MIN Fentanyl 500 mcg/ Dextrose 100 mls @ 5 mls/hr 04/02/18 12:30 04/03/18 13:01 IVPB 100 mcg/hr TITR [facility] 20 mls/hr Administration Protocol 25 MCG/HR Insulin Aspart 1 vial 03/28/18 08:30 04/03/18 12:41 Novolog Vial Sliding Scale - SQ 8 units Q6HPO [facility] Administration Protocol Insulin Detemir 22 units 04/01/18 09:26 04/03/18 06:12 Levemir Vial SQ 22 units BID@0700,2200 [facility] Administration Lactobacillus Acidophilus 1 tab 03/31/18 12:00 04/03/18 09:29 Bacid - PO 1 tab DAILY [facility] Administration Metoprolol Tartrate 12.5 mg 03/28/18 12:15 04/03/18 09:29 Lopressor - PO 12.5 mg BID [facility] Administration Metoprolol Tartrate 5 mg 04/02/18 19:17 Lopressor Injection - IVPUSH Q4H PRN HYPERTENSION Pantoprazole Sodium 40 mg 03/26/18 12:00 04/03/18 09:29 Protonix Iv IVPUSH 40 mg BID [facility] Administration Last Vital Signs Temp Pulse Resp BP Pulse Ox 99.2 F 74 16 120/59 L 98 04/03/18 14:00 04/03/18 14:00 04/03/18 14:00 04/03/18 14:00 04/03/18 10:00 Intake & Output 03/31/18 04/01/18 04/02/18 04/03/18 23:59 23:59 23:59 23:59 Intake Total 2527.2 3136.9 1270 1390 Output Total 3000 3280 2400 1600 Balance -472.8 -143.1 -1130 -210 Weight 193 lb 12.581 oz 192 lb 7.417 oz 182 lb 12.211 oz 186 lb 5 oz General sedated/intubated CV S1 S2 RRR no murmur/rub/gallop Lungs coarse breath sounds Abdomen soft NT/ND obese Extremities no pedal edema CBCD WBC 16.4 K/mm3 (4.0-10.0) H 04/03/18 05:30 RBC 4.07 M/mm3 (4.00-5.60) 04/03/18 05:30 Hgb 10.6 GM/dL (11.7-16.9) L 04/03/18 05:30 Hct 32.0 % (35.4-49) L 04/03/18 05:30 MCV 78.7 fl (80-96) L 04/03/18 05:30 MCHC 33.2 g/dl (32.0-35.9) 04/03/18 05:30 RDW 14.7 % (11.9-15.9) 04/03/18 05:30 Plt Count 412 K/MM3 (134-434) 04/03/18 05:30 MPV 9.5 fl (7.5-11.1) 04/03/18 05:30 CMP Sodium 146 mmol/L (136-145) H 04/03/18 05:30 Potassium 4.4 mmol/L (3.5-5.1) 04/03/18 05:30 Chloride 106 mmol/L (98-107) 04/03/18 05:30 Carbon Dioxide 32 mmol/L (21-32) 04/03/18 05:30 Anion Gap 7 MMOL/L (8-16) L 04/03/18 05:30 BUN 31 mg/dL (7-18) H 04/03/18 05:30 Creatinine 1.0 mg/dL (0.55-1.3) 04/03/18 05:30 Creat Clearance w eGFR > 60 (>60) 04/03/18 05:30 Calcium 7.9 mg/dL (8.5-10.1) L 04/03/18 05:30 Total Bilirubin 0.4 mg/dL (0.2-1) 04/03/18 05:30 AST 26 U/L (15-37) 04/03/18 05:30 ALT 36 U/L (13-61) 04/03/18 05:30 Alkaline Phosphatase 76 U/L (45-117) 04/03/18 05:30 Total Protein 5.5 g/dl (6.4-8.2) L 04/03/18 05:30 Albumin 1.6 g/dl (3.4-5.0) L 04/03/18 05:30 ASSESSMENT AND PLAN: 62 Y/O M with PMHx uncontrolled DM, HTN, HLD P/W SOB for 5 days, found to be in hypoxic respiratory failure and sepsis due to PNA, intubated for hypoxic respiratory failure, newly dxed Afib. 1. Acute Hypoxic respiratory failure- due to multilobar PNA. did not tolerate cpap trial due to tachypnea. cont daily cpap trials. daily sedation vacations. further management per ICU team 2. sepsis due to Multi-lobar PNA- +legionella. low grade fevers. mild improvement on CXR. On Levaquin day 9. chest PT. quant pending/legionella serology pending. HIV negative. ID on board 3. MRSA wound infection- daily dressings on vanco day 9. vanco level today. adjust vanco as needed. 4. Afib with RVR- new onset. likely induced from sepsis and hypoxia. now in NSR. off amio, [id number] 2. on full dose lovenox. echo reviewed. TSH wnl. can have ischemia workup outpatient vs prior to discharge. cardio on board. 5. Prolonged Qtc- avoid QT prolonging agents. now resolved. 6. DM- uncontrolled. A1c 11.5. controlled. cont current dosing. monitor closely as now off steroids. ISS and BGM. will need insulin on discharge 7. SONIDO- due to hypoperfusion. now improved. avoid nephrotoxic agents 8. DVT ppx- full dose lovenox 9. Full code. MICU monitoring 10. spoke wtih daughter present at bedside. all questions answered. verbalized understanding and agreement with plan The care of this patient involved high complexity decision making to prevent further life threatening deterioration of the patient's condition and/or to evaluate & treat vital organ system(s) failure or risk of failure. 36 mins Visit type - Emergency Visit Emergency Visit: Yes ED Registration Date: 03/25/18 Care time: The patient presented to the Emergency Department on the above date and was hospitalized for further evaluation of their emergent condition. - New Patient This patient is new to me today: No - Critical Care Critical Care patient: Yes Total Critical Care Time (in minutes): 36 Critical Care Statement: The care of this patient involved high complexity decision making to prevent further life threatening deterioration of the patient 's condition and/or to evaluate & treat vital organ system(s) failure or risk of failure. - Discharge Referral Referred to [facility] Med [facility].C.: No
[2018-04-03] MEDS ORDERED: FUROSEMIDE 40 MG/4 ML INJECTABLE VIAL IVPUSH ONE (20:21)
[2018-04-03] MEDS: CHLORHEXIDINE GLUCONATE 4% CLEANSER FOR DECOLONIZATION TP SCH (21:12)
[2018-04-04] MEDS: VANCOMYCIN 1 GRAM (PRE-DOCKED) 1,000 MG/250 ML BAG IVPB SCH ×2 (05:34→16:19)
[2018-04-04] MEDS: INSULIN SLIDING SCALE (NOVOLOG) 1 VIAL SQ SCH ×5 (05:34→23:51)
[2018-04-04] MEDS: INSULIN (LEVEMIR) 100 UNITS/ML UNITS SQ SCH ×2 (06:13→21:31)
[2018-04-04 06:21] LABS: ALBUMIN 1.5 g/dl (3.4-5.0); ALK PHOS 68 U/L (45-117); ANION GAP 4 MMOL/L (8-16); BILIRUBIN,TOTAL 0.3 mg/dL (0.2-1); BLOOD UREA NITROGEN 28 mg/dL (7-18); CALCIUM 8.2 mg/dL (8.5-10.1); CHLORIDE 105 mmol/L (98-107); CO2 36 mmol/L (21-32); GLUCOSE,RANDOM 164 mg/dL (74-106); PHOSPHOROUS 4.2 mg/dL (2.5-4.9); POTASSIUM 3.4 mmol/L (3.5-5.1); SGOT/AST 42 U/L (15-37); SGPT/ALT 37 U/L (13-61); SODIUM 146 mmol/L (136-145)
[2018-04-04] MEDS ORDERED: fentaNYL CITRATE 250 MCG/5 ML VIAL ONE (06:34)
[2018-04-04 07:18] LABS: HEMATOCRIT 30.1 % (35.4-49); HEMOGLOBIN 10.5 GM/dL (11.7-16.9); MCH 28.2 pg (25.7-33.7); MEAN CELL VOLUME 80.5 fl (80-96); MEAN PLT VOLUME 9.4 fl (7.5-11.1); PLATELET COUNT 390 K/MM3 (134-434); RBC 3.73 M/mm3 (4.00-5.60); RDW 14.2 % (11.9-15.9); WHITE BLOOD COUNT 14.5 K/mm3 (4.0-10.0)
[2018-04-04] MEDS: AMINO ACIDS/PROTEIN HYDROLYS 30 ML LIQUID.PKT PO SCH ×2 (09:00→17:56)
[2018-04-04] MEDS ORDERED: PT OWN MED DRAWER 7, Y5N ONE (09:07)
[2018-04-04] MEDS: LACTOBACILLUS ACIDOPHILUS 1 TABLET PO SCH (09:11)
[2018-04-04] MEDS: PANTOPRAZOLE SODIUM 40 MG VIAL IVPUSH SCH ×2 (09:11→21:32)
[2018-04-04] MEDS: amLODIPine BESYLATE 5 MG TABLET (FP) PO SCH (09:11)
[2018-04-04] MEDS: ENOXAPARIN NA (PORCINE) 100 MG/1 ML DISP.SYRIN SQ SCH ×2 (09:12→21:48)
[2018-04-04] MEDS: CHLORHEXIDINE GLUCONATE 0.12% 15ML CUP MM SCH ×2 (09:13→21:32)
[2018-04-04] MEDS ORDERED: FUROSEMIDE 40 MG/4 ML INJECTABLE VIAL ONE (09:49)
[2018-04-04] MEDS ORDERED: FUROSEMIDE 40 MG/4 ML INJECTABLE VIAL IVPUSH ONE (09:50)
--- NOTE | 2018-04-04 10:08 | PN ---
Physical Exam: SUBJECTIVE: Patient seen and examined at bedside. No overnight events. Intubated and sedated. OBJECTIVE: Vital Signs Period Temp Pulse Resp BP Sys/Santacruz Pulse Ox Last 24 Hr 98 F-99.8 F 54-76 14-18 114-177/56-98 93-98 GENERAL: A&Ox0, intubated and sedated EYES: PERRLA, EOMI ENT: Moist mucus membranes NECK: No JVD LUNGS: CTA, mechanical breath sounds HEART: RRR, no murmurs ABDOMEN: Soft, nontender, BS present MUSCULOSKELETAL: No CVA Tenderness EXTREMITIES: 2+ pulses, 1 + edema NEUROLOGICAL: unable to assess Laboratory Results - last 24 hr 04/03/18 04/03/18 04/03/18 05:30 05:35 12:37 WBC RBC Hgb Hct MCV MCH MCHC RDW Plt Count MPV Neutrophils % (Manual) 79.2 D Band Neutrophils % 3.0 Lymphocytes % (Manual) 6.9 L D Monocytes % (Manual) 8 D Eosinophils % (Manual) 1.0 Basophils % (Manual) 0.0 Myelocytes % (Man) 1 D Promyelocytes % (Man) 0 Blast Cells % (Manual) 0 Metamyelocytes 1 D Hypochromia 0 Platelet Estimate Normal Polychromasia 1+ Poikilocytosis 0 Anisocytosis 1+ Microcytosis 1+ Sodium Potassium Chloride Carbon Dioxide Anion Gap BUN Creatinine Creat Clearance w eGFR POC Glucometer [phone] Random Glucose Calcium Phosphorus Magnesium Total Bilirubin AST ALT Alkaline Phosphatase Total Protein Albumin Vancomycin Pre-Dose 04/03/18 04/03/18 04/03/18 15:05 17:34 21:06 WBC RBC Hgb Hct MCV MCH MCHC RDW Plt Count MPV Neutrophils % (Manual) Band Neutrophils % Lymphocytes % (Manual) Monocytes % (Manual) Eosinophils % (Manual) Basophils % (Manual) Myelocytes % (Man) Promyelocytes % (Man) Blast Cells % (Manual) Metamyelocytes Hypochromia Platelet Estimate Polychromasia Poikilocytosis Anisocytosis Microcytosis Sodium Potassium Chloride Carbon Dioxide Anion Gap BUN Creatinine Creat Clearance w eGFR POC Glucometer [phone] Random Glucose Calcium Phosphorus Magnesium Total Bilirubin AST ALT Alkaline Phosphatase Total Protein Albumin Vancomycin Pre-Dose 11.6 L 04/04/18 04/04/18 05:30 05:30 WBC 14.5 H RBC 3.73 L Hgb 10.5 L Hct 30.1 L MCV 80.5 MCH 28.2 MCHC 35.0 RDW 14.2 Plt Count 390 MPV 9.4 Neutrophils % (Manual) Band Neutrophils % Lymphocytes % (Manual) Monocytes % (Manual) Eosinophils % (Manual) Basophils % (Manual) Myelocytes % (Man) Promyelocytes % (Man) Blast Cells % (Manual) Metamyelocytes Hypochromia Platelet Estimate Polychromasia Poikilocytosis Anisocytosis Microcytosis Sodium 146 H Potassium 3.4 L Chloride 105 Carbon Dioxide 36 H Anion Gap 4 L BUN 28 H Creatinine 1.0 Creat Clearance w eGFR > 60 POC Glucometer Random Glucose 164 H Calcium 8.2 L Phosphorus 4.2 Magnesium 2.0 Total Bilirubin 0.3 AST 42 H ALT 37 Alkaline Phosphatase 68 Total Protein 5.0 L Albumin 1.5 L Vancomycin Pre-Dose Active Medications Generic Name Dose Route Start Last Admin Trade Name Freq PRN Reason Stop Dose Admin Acetaminophen 1,000 mg 03/26/18 19:02 03/29/18 11:59 Ofirmev Injection - IVPB 1,000 mg Q6H PRN Administration FEVER Amino Acids 30 ml 03/27/18 17:30 04/04/18 09:00 Prosource No Carb Liquid Pkt PO 30 ml BID@0800,1730 [facility] Administration Amlodipine Besylate 5 mg 04/01/18 11:45 04/04/18 09:11 Norvasc - PO 5 mg DAILY [facility] Administration Chlorhexidine Gluconate 1 applic 03/26/18 22:00 04/03/18 21:12 Hibiclens For Decolonization - TP 1 applic HS [facility] Administration Chlorhexidine Gluconate 15 ml 03/28/18 10:00 04/04/18 09:13 Peridex - MM 15 ml BID [facility] Administration Enoxaparin Sodium 90 mg 03/29/18 13:15 04/04/18 09:12 Lovenox - SQ 90 mg BID [facility] Administration Levofloxacin 750 mg in 150 mls @ 150 mls/hr 03/26/18 16:30 04/04/18 09:12 Levaquin 750 Mg Premixed Ivpb - IVPB 150 mls/hr DAILY [facility] Administration Protocol Vancomycin HCl 1,000 mg in 250 mls @ 166.667 mls/hr 03/29/18 16:30 04/04/18 05:34 Vancomycin (Pre-Docked) IVPB 166.667 mls/hr Q12H [facility] Administration Protocol Propofol 1,000,000 mcg in 100 mls @ 2.619 mls/hr 04/01/18 12:45 04/04/18 10: 01 Diprivan - IVPB 0 mcg/kg/min TITR [facility] 0 mls/hr Titration Protocol 5 MCG/KG/MIN Fentanyl 500 mcg/ Dextrose 100 mls @ 5 mls/hr 04/02/18 12:30 04/04/18 10:01 IVPB 0 mcg/hr TITR [facility] 0 mls/hr Titration Protocol 25 MCG/HR Insulin Aspart 1 vial 03/28/18 08:30 04/04/18 05:34 Novolog Vial Sliding Scale - SQ 2 units Q6HPO [facility] Administration Protocol Insulin Detemir 22 units 04/01/18 09:26 04/04/18 06:13 Levemir Vial SQ 22 units BID@0700,2200 [facility] Administration Lactobacillus Acidophilus 1 tab 03/31/18 12:00 04/04/18 09:11 Bacid - PO 1 tab DAILY [facility] Administration Metoprolol Tartrate 12.5 mg 03/28/18 12:15 04/03/18 21:13 Lopressor - PO 12.5 mg BID [facility] Administration Metoprolol Tartrate 5 mg 04/02/18 19:17 Lopressor Injection - IVPUSH Q4H PRN HYPERTENSION Pantoprazole Sodium 40 mg 03/26/18 12:00 04/04/18 09:11 Protonix Iv IVPUSH 40 mg BID [facility] Administration ASSESSMENT/PLAN: Patient is a 62 year old male with history of DM, HTN, HLD admitted for sepsis 2 /2 legionella pneumonia # Sepsis: 2/2 Pneumonia/Legionella Pneumonia, improving - will attempt to extubate today -levaquin day 10 -Lactic acidosis resolved -Infectious disease Dr Rosenbaum on board -will attempt to extubate today -Urine Culture + for Strep Agalactiae Group B #R calf wound: + for MRSA -R Calf abscess Wound culture + for MRSA -continue vancomycin 1g # Acute respiratory failure: 2/2 legionella PNA -Likely secondary to the pneumonia #Atrial Fibrillation: stable, not tachycardic -Patient denies history of Afib, or any cardiac history in past. -CHADsVASC score of 2 -Lovenox 90 bid -Cardiac monitoring -Cardiology on board -Lopressor 12.5 BID #Hypertension Lopressor 12.5 BID #IDDM -Levemir increased to 24 U SQ BID -A1c 11.5% # FEN -No Fluids -Monitor Electrolytes -Glucerna #Prophylaxis -lovenox 90 bid # Disposition -Monitor in ICU Visit type - Emergency Visit Emergency Visit: No - New Patient This patient is new to me today: No - Critical Care Critical Care patient: Yes Total Critical Care Time (in minutes): 40 Critical Care Statement: The care of this patient involved high complexity decision making to prevent further life threatening deterioration of the patient 's condition and/or to evaluate & treat vital organ system(s) failure or risk of failure.
--- NOTE | 2018-04-04 10:54 | PN ---
Progress Note (short form) - Note Progress Note: Chief Complaint: resp failure History of Present Illness: extubated this AM. appears comfortable Current Medications Acetaminophen (Ofirmev Injection -) 1,000 mg IVPB Q6H PRN PRN Reason: FEVER Last Admin: 03/29/18 11:59 Dose: 1,000 mg Amino Acids (Prosource No Carb Liquid Pkt) 30 ml PO BID@0800,1730 [facility] Last Admin: 04/04/18 09:00 Dose: 30 ml Amlodipine Besylate (Norvasc -) 5 mg PO DAILY [facility] Last Admin: 04/04/18 09:11 Dose: 5 mg Chlorhexidine Gluconate (Hibiclens For Decolonization -) 1 applic TP HS [facility] Last Admin: 04/03/18 21:12 Dose: 1 applic Chlorhexidine Gluconate (Peridex -) 15 ml MM BID [facility] Last Admin: 04/04/18 09:13 Dose: 15 ml Enoxaparin Sodium (Lovenox -) 90 mg SQ BID [facility] Last Admin: 04/04/18 09:12 Dose: 90 mg Levofloxacin (Levaquin 750 Mg Premixed Ivpb -) 750 mg in 150 mls @ 150 mls/hr IVPB DAILY [facility]; Protocol Last Admin: 04/04/18 09:12 Dose: 150 mls/hr Vancomycin HCl (Vancomycin (Pre-Docked)) 1,000 mg in 250 mls @ 166.667 mls/hr IVPB Q12H [facility]; Protocol Last Admin: 04/04/18 05:34 Dose: 166.667 mls/hr Propofol (Diprivan -) 1,000,000 mcg in 100 mls @ 2.619 mls/hr IVPB TITR [facility]; Protocol Last Titration: 04/04/18 10:01 Dose: 0 mcg/kg/min, 0 mls/hr Fentanyl 500 mcg/ Dextrose 100 mls @ 5 mls/hr IVPB TITR [facility]; Protocol Last Titration: 04/04/18 10:01 Dose: 0 mcg/hr, 0 mls/hr Insulin Aspart (Novolog Vial Sliding Scale -) 1 vial SQ Q6HPO [facility]; Protocol Last Admin: 04/04/18 05:34 Dose: 2 units Insulin Detemir (Levemir Vial) 22 units SQ BID@0700,2200 [facility] Last Admin: 04/04/18 06:13 Dose: 22 units Lactobacillus Acidophilus (Bacid -) 1 tab PO DAILY [facility] Last Admin: 04/04/18 09:11 Dose: 1 tab Metoprolol Tartrate (Lopressor -) 12.5 mg PO BID [facility] Last Admin: 04/03/18 21:13 Dose: 12.5 mg Metoprolol Tartrate (Lopressor Injection -) 5 mg IVPUSH Q4H PRN PRN Reason: HYPERTENSION Pantoprazole Sodium (Protonix Iv) 40 mg IVPUSH BID [facility] Last Admin: 04/04/18 09:11 Dose: 40 mg - Objective Vital Signs: Vital Signs Period Temp Pulse Resp BP Sys/Santacruz Pulse Ox Last 24 Hr 98 F-99.8 F 54-76 14-18 114-177/56-98 93-98 Constitutional: Yes: No Distress, Calm, intubated Cardiovascular: Yes: Regular Rate and Rhythm, S1, S2, Other (PMI non diplaced). No: Gallop, Murmur Respiratory: Yes: +rhonchi. No: Accessory Muscle Use Gastrointestinal: Yes: Normal Bowel Sounds, Soft. No: Tenderness Extremities: No: Cold Edema: No Integumentary: No: Jaundice Neurological:sedated Psychiatric: No: Agitated ct chest: b/l pna ecg: afib vr 154, no ischemic changes, nl qtc ecg 03/30 sinus, QTc 403 (stable) echo 03/18: nl LVSF. nl RV. nl LA. mild MR/TR. RVSP 30-40 tele: sinus, brief PAT a/p: 62 m hx dm, hld, htn here with fever, leg wound. sepsis, PNA, acute resp failure: -has sahu abscess as well as b/l pna -cont abx per ID/crit care -received two doses of IV lasix - congestion noted on CXR - extubated today -no pressor requirement at present, bp stable afib, rvr: -unknown if new onset -in er started on dilt gtt and amio gtt-->sinus -cont metoprolol -chadsvasc 2 warrants ac, on lovenox SONIDO: -bun/creat up 03/27, ? intravasc vol depletion in setting of DKA -improved with IVF dm: -on insulin -per crit care htn: - controlled -cont bb, norvasc
[2018-04-04] MEDS: METOPROLOL TARTRATE 25 MG TABLET (FP) PO SCH ×2 (11:00→21:32)
--- NOTE | 2018-04-04 13:11 | PN ---
Teaching Attending Note Name of Resident: Sanjay Fischer ATTENDING PHYSICIAN STATEMENT I saw and evaluated the patient. I reviewed the resident's note and discussed the case with the resident. I agree with the resident's findings and plan as documented. SUBJECTIVE:resting comfortable. difficult to speak. denies CP, SOB, fever, or chills OBJECTIVE: Last Vital Signs Temp Pulse Resp BP Pulse Ox 98.9 F 70 16 168/75 94 L 04/04/18 10:00 04/04/18 12:00 04/04/18 12:00 04/04/18 12:00 04/04/18 07:55 Intake & Output 04/01/18 04/02/18 04/03/18 04/04/18 23:59 23:59 23:59 22:59 Intake Total 3136.9 1270 2860 1370 Output Total 3280 2400 4200 600 Balance -143.1 -1130 -1340 770 Weight 192 lb 7.417 oz 182 lb 12.211 oz 186 lb 5 oz 187 lb 2 oz General NAD CV S1 S2 RRR no murmur/rub/gallop Lungs coarse breath sounds, poor inspiratory effort abdomen soft NT/ND obese Extremities no pedal edema ASSESSMENT AND PLAN: 62 Y/O M with PMHx uncontrolled DM, HTN, HLD P/W SOB for 5 days, found to be in hypoxic respiratory failure and sepsis due to PNA, intubated for hypoxic respiratory failure, newly dxed Afib. 1. Acute Hypoxic respiratory failure- due to multilobar PNA. s/p extubation this AM. saturating on non-rebreather. 2. sepsis due to Multi-lobar PNA- +legionella. afebrile. On Levaquin day 10. chest PT. quant neg /legionella serology +. HIV negative. ID on board 3. MRSA wound infection- daily dressings on vanco day 10. level therapeutic 4. Afib with RVR- new onset. likely induced from sepsis and hypoxia. now in NSR. off amio, [id number] 2. on full dose lovenox. switch to NOAC tomorrow. echo reviewed. TSH wnl. can have ischemia workup outpatient vs prior to discharge. cardio on board. 5. Prolonged Qtc- avoid QT prolonging agents. now resolved. 6. DM- uncontrolled. A1c 11.5. titrate levemir to optimize control. ISS and BGM. will need insulin on discharge 7. SONIDO- due to hypoperfusion. now improved. avoid nephrotoxic agents 8. DVT ppx- full dose lovenox 9. Full code. MICU monitoring 10. spoke wtih son present at bedside. all questions answered. verbalized understanding and agreement with plan The care of this patient involved high complexity decision making to prevent further life threatening deterioration of the patient's condition and/or to evaluate & treat vital organ system(s) failure or risk of failure. 38 mins
--- NOTE | 2018-04-04 13:31 | PN ---
Progress Note (short form) - Note Progress Note: SUBJECTIVE: Patient seen and examined in the ICU. 24HR: -more diuresis, improved Resp status -extubated successfully CXR: No gross change in bilateral infiltrates /pulm vasc congestion OBJECTIVE: Vital Signs Temp 98.9 F 04/04/18 10:00 Pulse 70 04/04/18 12:00 Resp 16 04/04/18 12:00 BP 168/75 04/04/18 12:00 Pulse Ox 94 L 04/04/18 07:55 Intake & Output 04/04/18 04/04/18 04/04/18 00:59 11:59 23:59 Intake Total Output Total Balance Weight Intake: IV DIPRIVAN - 1,000,000 mcg In 100 ml @ 5 MCG/KG/MIN 2.619 mls/hr IVPB TITR [facility] Rx#:[id number] Sublimaze Injection - 500 Mcg In D5w - 90 ml @ 25 MCG/HR 5 mls/hr IVPB TITR [facility] Rx#:[id number] IVPB Tube Feeding Tube Irrigant Output: Urine Tracy Other: Voiding Method Bowel Movement # Bowel Movements Weight Measurement Method Active Medications Acetaminophen (Ofirmev Injection -) 1,000 mg IVPB Q6H PRN PRN Reason: FEVER Last Admin: 03/29/18 11:59 Dose: 1,000 mg Amino Acids (Prosource No Carb Liquid Pkt) 30 ml PO BID@0800,1730 [facility] Last Admin: 04/04/18 09:00 Dose: 30 ml Amlodipine Besylate (Norvasc -) 5 mg PO DAILY [facility] Last Admin: 04/04/18 09:11 Dose: 5 mg Chlorhexidine Gluconate (Hibiclens For Decolonization -) 1 applic TP HS [facility] Last Admin: 04/03/18 21:12 Dose: 1 applic Chlorhexidine Gluconate (Peridex -) 15 ml MM BID [facility] Last Admin: 04/04/18 09:13 Dose: 15 ml Enoxaparin Sodium (Lovenox -) 90 mg SQ BID [facility] Last Admin: 04/04/18 09:12 Dose: 90 mg Levofloxacin (Levaquin 750 Mg Premixed Ivpb -) 750 mg in 150 mls @ 150 mls/hr IVPB DAILY [facility]; Protocol Last Admin: 04/04/18 09:12 Dose: 150 mls/hr Vancomycin HCl (Vancomycin (Pre-Docked)) 1,000 mg in 250 mls @ 166.667 mls/hr IVPB Q12H [facility]; Protocol Last Admin: 04/04/18 05:34 Dose: 166.667 mls/hr Propofol (Diprivan -) 1,000,000 mcg in 100 mls @ 2.619 mls/hr IVPB TITR [facility]; Protocol Last Titration: 04/04/18 10:01 Dose: 0 mcg/kg/min, 0 mls/hr Fentanyl 500 mcg/ Dextrose 100 mls @ 5 mls/hr IVPB TITR [facility]; Protocol Last Titration: 04/04/18 10:01 Dose: 0 mcg/hr, 0 mls/hr Insulin Aspart (Novolog Vial Sliding Scale -) 1 vial SQ Q6HPO [facility]; Protocol Last Admin: 04/04/18 12:00 Dose: 4 units Insulin Detemir (Levemir Vial) 24 units SQ BID@0700,2200 [facility] Lactobacillus Acidophilus (Bacid -) 1 tab PO DAILY [facility] Last Admin: 04/04/18 09:11 Dose: 1 tab Metoprolol Tartrate (Lopressor -) 12.5 mg PO BID [facility] Last Admin: 04/04/18 11:00 Dose: 12.5 mg Metoprolol Tartrate (Lopressor Injection -) 5 mg IVPUSH Q4H PRN PRN Reason: HYPERTENSION Pantoprazole Sodium (Protonix Iv) 40 mg IVPUSH BID [facility] Last Admin: 04/04/18 09:11 Dose: 40 mg Gen: intubated, arousable , follows simple commands Heart: RRR Lung: scattered rhonchi Abd: soft, nontender Ext: + edema, decreasing ASSESSMENT AND PLAN: Acute Hypoxic Respiratory Failure Legionella Pneumonia Severe Sepsis Acute Kidney Injury Lactic Acidosis ARDS Atrial Fibrillation with RVR HTN DM - Lasix for O>I - continue antibiotics as per ID, 7 day course - monitor QTc - rate control - continue anticoagulation with lovenox - monitor urine output, creatinine - low tidal volume ventilation 6cc/kg/IBW - keep Pplat <30 - taper FiO2, PEEP to keep SpO2 >90% - inhaled bronchodilators - enteral feeds - DVT/GI prophylaxis Con[facility] [id number] 35min CCT Problem List - Problems (1) Acute respiratory failure with hypoxia Code(s): J96.01 - ACUTE RESPIRATORY FAILURE WITH HYPOXIA (2) Fever Code(s): R50.9 - FEVER, UNSPECIFIED Qualifiers: Fever type: unspecified Qualified Code(s): R50.9 - Fever, unspecified (3) Legionella pneumonia Code(s): A48.1 - LEGIONNAIRES' DISEASE (4) Sepsis Code(s): A41.9 - SEPSIS, UNSPECIFIED ORGANISM Qualifiers: Sepsis type: sepsis due to unspecified organism Qualified Code(s): A41.9 - Sepsis, unspecified organism
[2018-04-04] MEDS: FENTANYL INJECTION 500 MCG in DEXTROSE 5%-WATER - 90 ML IVPB SCH (14:15)
[2018-04-04] MEDS: PROPOFOL 1,000,000 MCG/100 ML VIAL IVPB SCH (14:16)
[2018-04-04] MEDS: CHLORHEXIDINE GLUCONATE 4% CLEANSER FOR DECOLONIZATION TP SCH (21:31)
[2018-04-05] MEDS: VANCOMYCIN 1 GRAM (PRE-DOCKED) 1,000 MG/250 ML BAG IVPB SCH ×2 (04:08→16:42)
[2018-04-05] MEDS: INSULIN SLIDING SCALE (NOVOLOG) 1 VIAL SQ SCH ×4 (06:42→22:12)
[2018-04-05] MEDS: INSULIN (LEVEMIR) 100 UNITS/ML UNITS SQ SCH ×2 (06:42→22:12)
[2018-04-05] MEDS: AMINO ACIDS/PROTEIN HYDROLYS 30 ML LIQUID.PKT PO SCH ×2 (09:00→16:41)
[2018-04-05] MEDS: amLODIPine BESYLATE 5 MG TABLET (FP) PO SCH (09:24)
[2018-04-05] MEDS: LACTOBACILLUS ACIDOPHILUS 1 TABLET PO SCH (09:24)
[2018-04-05] MEDS: CHLORHEXIDINE GLUCONATE 0.12% 15ML CUP MM SCH (09:25)
[2018-04-05] MEDS: PANTOPRAZOLE SODIUM 40 MG VIAL IVPUSH SCH ×2 (09:26→22:12)
[2018-04-05] MEDS: ENOXAPARIN NA (PORCINE) 100 MG/1 ML DISP.SYRIN SQ SCH (09:28)
[2018-04-05] MEDS: METOPROLOL TARTRATE 25 MG TABLET (FP) PO SCH ×2 (09:29→22:12)
[2018-04-05] MEDS ORDERED: LISINOPRIL 10 MG TABLET (FP) PO SCH (10:00)
--- NOTE | 2018-04-05 10:11 | PN ---
Physical Exam: SUBJECTIVE: Patient seen and examined at bedside. No acute events overnight. Extubated yesterday. No fevers. OBJECTIVE: Vital Signs Period Temp Pulse Resp BP Sys/Santacruz Pulse Ox Last 24 Hr 98.6 F-99.9 F 68-86 16-26 160-170/65-76 97-97 GENERAL: AAOX3, NAD HEAD: NC/AT EYES: PERRLA , EOMI ENT: MMM NECK: Trachea midline, full range of motion, supple. LUNGS: Scattered Rhonchi HEART: RRR No MRG ABDOMEN: Soft, NDNT, No HSM EXTREMITIES: No CCE NEUROLOGICAL: Cranial nerves II through XII grossly intact. Normal speech, gait not observed. PSYCH: Normal mood, normal affect. SKIN: Wound on right sahu healing, no discharge or discoloration. Laboratory Results - last 24 hr 04/02/18 04/04/18 04/04/18 21:14 06:27 12:00 POC Glucometer 349.94719 188.58667 208.57138 04/04/18 04/04/18 04/05/18 17:58 21:01 05:48 POC Glucometer 183.93287 175.15792 175.94417 Active Medications Generic Name Dose Route Start Last Admin Trade Name Freq PRN Reason Stop Dose Admin Acetaminophen 1,000 mg 03/26/18 19:02 03/29/18 11:59 Ofirmev Injection - IVPB 1,000 mg Q6H PRN Administration FEVER Amino Acids 30 ml 03/27/18 17:30 04/05/18 09:00 Prosource No Carb Liquid Pkt PO 30 ml BID@0800,1730 [facility] Administration Amlodipine Besylate 5 mg 04/01/18 11:45 04/05/18 09:24 Norvasc - PO 5 mg DAILY [facility] Administration Atorvastatin Calcium 10 mg 04/05/18 22:00 Lipitor - PO HS [facility] Chlorhexidine Gluconate 1 applic 03/26/18 22:00 04/04/18 21:31 Hibiclens For Decolonization - TP 1 applic HS [facility] Administration Chlorhexidine Gluconate 15 ml 03/28/18 10:00 04/05/18 09:25 Peridex - MM 15 ml BID [facility] Administration Enoxaparin Sodium 90 mg 03/29/18 13:15 04/05/18 09:28 Lovenox - SQ 90 mg BID [facility] Administration Levofloxacin 750 mg in 150 mls @ 150 mls/hr 03/26/18 16:30 04/05/18 09:24 Levaquin 750 Mg Premixed Ivpb - IVPB 150 mls/hr DAILY [facility] Administration Protocol Vancomycin HCl 1,000 mg in 250 mls @ 166.667 mls/hr 03/29/18 16:30 04/05/18 04:08 Vancomycin (Pre-Docked) IVPB 166.667 mls/hr Q12H [facility] Administration Protocol Propofol 1,000,000 mcg in 100 mls @ 2.619 mls/hr 04/01/18 12:45 04/04/18 14: 16 Diprivan - IVPB Not Given TITR [facility] Protocol 5 MCG/KG/MIN Fentanyl 500 mcg/ Dextrose 100 mls @ 5 mls/hr 04/02/18 12:30 04/04/18 14:15 IVPB Not Given TITR [facility] Protocol 25 MCG/HR Insulin Aspart 1 vial 03/28/18 08:30 04/05/18 06:42 Novolog Vial Sliding Scale - SQ 2 units Q6HPO [facility] Administration Protocol Insulin Detemir 24 units 04/04/18 11:37 04/05/18 06:42 Levemir Vial SQ 24 units BID@0700,2200 [facility] Administration Lactobacillus Acidophilus 1 tab 03/31/18 12:00 04/05/18 09:24 Bacid - PO 1 tab DAILY [facility] Administration Lisinopril 10 mg 04/05/18 10:00 04/05/18 09:29 Prinivil PO 10 mg DAILY [facility] Administration Metoprolol Tartrate 12.5 mg 03/28/18 12:15 04/05/18 09:29 Lopressor - PO 12.5 mg BID [facility] Administration Metoprolol Tartrate 5 mg 04/02/18 19:17 Lopressor Injection - IVPUSH Q4H PRN HYPERTENSION Pantoprazole Sodium 40 mg 03/26/18 12:00 04/05/18 09:26 Protonix Iv IVPUSH 40 mg BID [facility] Administration ASSESSMENT/PLAN: Patient is a 62 year old male with history of DM, HTN, HLD presents with complaint of shortness of breath for past five days. # Sepsis secondary to Pneumonia/Legionella Pneumonia -Extubated yesterday 04/04/18 -Chest xray 04/02/18--> B/L pulmonary infiltrates seen. No pneumothorax appreciated -Patient received Vancomycin and Zosyn in ED -Now on Levaquin day and Vanco. -Lactic acidosis resolved -Infectious disease Dr Rosenbaum on board -Urine/Blood cultures negative -Central line removed 03/29/18 -R Calf abscess Wound culture + for MRSA -Urine Culture + for Strep Agalactiae Group B # Acute respiratory failure -Likely secondary to the pneumonia -Lasix 40 mg IV daily help remove fluid in lung # Afib -Patient denies history of Afib, or any cardiac history in past. -CHADsVASC score of 2 -Lovenox 90 bid -Cardiac monitoring -Cardiology on board -Lopressor 25 mg po BID # Hypertension OLIVERIO started today, lisinopril 10 mg po daily #IDDM -Levemir 22 U SQ BID -A1c 11.5% # FEN -No Fluids -Monitor Electrolytes -Speech/Swallow today, high risk of aspiration. Will not advance diet as of yet. # Prophylaxis -lovenox 90 bid # Disposition -Care per icu team Visit type - Emergency Visit Emergency Visit: Yes ED Registration Date: 03/25/18 Care time: The patient presented to the Emergency Department on the above date and was hospitalized for further evaluation of their emergent condition. - New Patient This patient is new to me today: No - Critical Care Critical Care patient: Yes Total Critical Care Time (in minutes): 35 Critical Care Statement: The care of this patient involved high complexity decision making to prevent further life threatening deterioration of the patient 's condition and/or to evaluate & treat vital organ system(s) failure or risk of failure. - Discharge Referral Referred to [facility] No
--- NOTE | 2018-04-05 10:41 | CONSULT ---
Admitting History and Physical - Primary Care Physician PCP: Irena Watkins - Admission History of Present Illness: 62 Y/O M with PMHx uncontrolled DM, HTN, HLD P/W SOB for 5 days, found to be in hypoxic respiratory failure and sepsis due to PNA, intubated for hypoxic respiratory failure, newly dxed Afib.Intubated on 04/26-Extubated 11/4 am. Acute Hypoxic respiratory failure- due to multilobar PNA. ,sepsis due to Multi- lobar PNA- +legionella. afebrile. ,MRSA wound infection- This is my first consult with this pt. History Source: Patient, Medical Record Limitations to Obtaining History: No Limitations, Language Barrier - Smoking History Smoking history: Never smoked Have you smoked in the past 12 months: No - Alcohol/Substance Use Hx Alcohol Use: Yes (OCCASIONAL PER SON) History - Admission Reason For Visit: SEPSIS - Diagnostics X-ray: Report Reviewed - General Mental Status: Alert and Oriented, Awake and Alert, Able to Follow Commands Attention: Intact Ability to Follow Directions: Excellent Head/Neck Control: Fair (overall weakness. Difficulty elevating arms bilaterallly) - Hearing Hearing: Functional Speech Evaluation - Communication Primary Language: BHUTANESE Communication: Yes: Language Barrier Oral Expression Ability: Yes: Mild Impairment, Moderate Impairment - Speech Production Able to Make Needs Known: Yes: Mildly Impaired, Moderately Impaired Intelligibility: Yes: Mildly Impaired, Moderately Impaired - Speech Characteristics Voice Loudness: Mildly Soft/Quiet Voice Phonatory-based Quality: Yes: Dysphonia, Vocal Wetness Speech Clarity: < 75% Nasal Resonance: Normal Articulation: Yes: Precise - Language/Auditory Comprehension Follows: Yes: 2 Stage Simple Commands Observation: Able to respond to yes/no queries: Yes, Yes/No Confusion: No, Comprehends Conversational Speech: Yes - Language/Verbal Expression Able to Respond to Simple Queries: Yes: Mildly Impaired Able to Communicate Wants and Needs: Yes: Mildly Impaired Functional Communication Status: Yes: Mildly Impaired - Swallow Evaluation/Bedside Assessment Current Nutritional Intake: NG Tube (Has diarrhea. RD aware. Reviewed case) Oral Secretions: Yes: Copious Secretions (expectoring secretions. Fairly strong cough.) Dentition: Yes: Missing Teeth (has partial dentures, not in mouth) Facial Symmetry on Retraction: Symmetrical Facial Movement: Controlled Against Resistance Opening: Weak Against Resistance Closing: Weak Pucker Lips: Weak Smile: Weak Lingual Movement: Symmetric Lingual Movement Strgth Against Opposition: Reduced Laryngeal Movement: Reduced Excursion, Labored,delay initiation, Reduced Velocity Recommendations - Speech Evaluation, Impression/Plan Impression: Dysphonia/ Vocal wetness/secretions s/p extubated. Swallow reflex quite weak at present. NGT in place for feedings. Diarrhea. Oriented. Angolan speaking. PO trial not attempted due to presently high risk of aspiration.Suspect impaired airway proitection/edema of Vocal cords sec to prolonged intubated. - Disposition [facility] to: [facility] - Dysphagia Impressions/Plan Swallowing Skills: Impaired Dysphagia Impressions: Moderate Impairment, Suspect Aspiration *Silent aspiration: cannot be R/O at bedside Dysphagia Treatment Plan: Other (Mouth care. Pt encouraged to cough and expectorate secretions, swallow saliva with effort if not painful from NGT) Recommendations: Modified Barium Swallow (once vocal quality and swallowing strength improves), Other (NGT feedings. Reviewed with RD. Hardy?) - Recommendations Diet Consistency: NPO Liquids: NPO
[2018-04-05 10:48] LABS: BASO % 0.5 % (0-2.0); EOS % 2.1 % (0-4.5); HEMATOCRIT 33.3 % (35.4-49); HEMOGLOBIN 11.5 GM/dL (11.7-16.9); LYMPH % 8.1 % (8-40); MCH 27.3 pg (25.7-33.7); MCHC 34.7 g/dl (32.0-35.9); MEAN CELL VOLUME 78.7 fl (80-96); MEAN PLT VOLUME 9.4 fl (7.5-11.1); MONO % 5.7 % (3.8-10.2); NEUT % 83.6 % (42.8-82.8); PLATELET COUNT 425 K/MM3 (134-434); RBC 4.23 M/mm3 (4.00-5.60); RDW 14.3 % (11.9-15.9); WHITE BLOOD COUNT 14.8 K/mm3 (4.0-10.0)
--- NOTE | 2018-04-05 10:53 | PN ---
Teaching Attending Note Name of Resident: Joe Larkin ATTENDING PHYSICIAN STATEMENT I saw and evaluated the patient. I reviewed the resident's note and discussed the case with the resident. I agree with the resident's findings and plan as documented. SUBJECTIVE:feels much better. denies Cp, SOB, fever, chills, cough, N/V/C/D OBJECTIVE: Last Vital Signs Temp Pulse Resp BP Pulse Ox 99 F 73 24 H 167/69 97 04/05/18 06:00 04/05/18 08:18 04/05/18 08:18 04/05/18 08:18 04/05/18 08:18 General NAD CV S1 S2 RRR no murmur/rub/gallop Lungs decreased breath sounds bases, poor inspiratory effort abdomen soft NT/ND obese Extremities no pedal edema ASSESSMENT AND PLAN: 62 Y/O M with PMHx uncontrolled DM, HTN, HLD P/W SOB for 5 days, found to be in hypoxic respiratory failure and sepsis due to PNA, intubated for hypoxic respiratory failure, newly dxed Afib. 1. Acute Hypoxic respiratory failure- due to multilobar PNA. s/p extubation / . saturating 91% on RA. will place on NC. incentive spirometer, swallow eval to advance diet 2. sepsis due to Multi-lobar PNA- +legionella. afebrile. On Levaquin day 11. chest PT. quant neg /legionella serology +. HIV negative. ID on board 3. MRSA wound infection- daily dressings on vanco day 11. level therapeutic 4. Afib with RVR- new onset. likely induced from sepsis and hypoxia. now in NSR. off amio, [id number] 2. on full dose lovenox. switch to NOAC once able to tolerate po. TSH wnl. can have ischemia workup outpatient vs prior to discharge. cardio on board. 5. Prolonged Qtc- avoid QT prolonging agents. now resolved. 6. DM- uncontrolled. A1c 11.5. titrate levemir to optimize control. ISS and BGM. will need insulin on discharge 7. SONIDO- due to hypoperfusion. now improved. avoid nephrotoxic agents 8. HTN- above goal. will re-start lisniopril. titrate medications 9. DVT ppx- full dose lovenox 10. Full code. stable for floors. PT eval. will likely require MELLO on discharge 11. spoke wtih son present at bedside. all questions answered. verbalized understanding and agreement with plan The care of this patient involved high complexity decision making to prevent further life threatening deterioration of the patient's condition and/or to evaluate & treat vital organ system(s) failure or risk of failure. 40 mins
[2018-04-05 11:01] LABS: ALBUMIN 1.6 g/dl (3.4-5.0); ALK PHOS 99 U/L (45-117); ANION GAP 10 MMOL/L (8-16); BILIRUBIN,TOTAL 0.4 mg/dL (0.2-1); BLOOD UREA NITROGEN 23 mg/dL (7-18); CHLORIDE 104 mmol/L (98-107); CO2 33 mmol/L (21-32); CREATININE 0.8 mg/dL (0.55-1.3); GLUCOSE,RANDOM 160 mg/dL (74-106); PHOSPHOROUS 3.4 mg/dL (2.5-4.9); POTASSIUM 3.1 mmol/L (3.5-5.1); SGOT/AST 45 U/L (15-37); SGPT/ALT 56 U/L (13-61); SODIUM 147 mmol/L (136-145); TOT PROT 5.5 g/dl (6.4-8.2)
--- NOTE | 2018-04-05 12:54 | PN ---
Progress Note, Physician History of Present Illness: Extubated Breathing non-labored Denies chest pain/ dyspnea + cough noted Afebrile WBC improved 14.8 - Current Medication List Current Medications: Active Medications Acetaminophen (Ofirmev Injection -) 1,000 mg IVPB Q6H PRN PRN Reason: FEVER Last Admin: 03/29/18 11:59 Dose: 1,000 mg Amino Acids (Prosource No Carb Liquid Pkt) 30 ml PO BID@0800,1730 [facility] Last Admin: 04/05/18 09:00 Dose: 30 ml Amlodipine Besylate (Norvasc -) 5 mg PO DAILY [facility] Last Admin: 04/05/18 09:24 Dose: 5 mg Atorvastatin Calcium (Lipitor -) 10 mg PO HS [facility] Chlorhexidine Gluconate (Hibiclens For Decolonization -) 1 applic TP HS [facility] Last Admin: 04/04/18 21:31 Dose: 1 applic Chlorhexidine Gluconate (Peridex -) 15 ml MM BID [facility] Last Admin: 04/05/18 09:25 Dose: 15 ml Enoxaparin Sodium (Lovenox -) 90 mg SQ BID [facility] Last Admin: 04/05/18 09:28 Dose: 90 mg Levofloxacin (Levaquin 750 Mg Premixed Ivpb -) 750 mg in 150 mls @ 150 mls/hr IVPB DAILY [facility]; Protocol Last Admin: 04/05/18 09:24 Dose: 150 mls/hr Vancomycin HCl (Vancomycin (Pre-Docked)) 1,000 mg in 250 mls @ 166.667 mls/hr IVPB Q12H [facility]; Protocol Last Admin: 04/05/18 04:08 Dose: 166.667 mls/hr Propofol (Diprivan -) 1,000,000 mcg in 100 mls @ 2.619 mls/hr IVPB TITR [facility]; Protocol Last Admin: 04/04/18 14:16 Dose: Not Given Fentanyl 500 mcg/ Dextrose 100 mls @ 5 mls/hr IVPB TITR [facility]; Protocol Last Admin: 04/04/18 14:15 Dose: Not Given Insulin Aspart (Novolog Vial Sliding Scale -) 1 vial SQ ACHS [facility]; Protocol Last Admin: 04/05/18 11:57 Dose: 2 units Insulin Detemir (Levemir Vial) 24 units SQ BID@0700,2200 [facility] Last Admin: 04/05/18 06:42 Dose: 24 units Lactobacillus Acidophilus (Bacid -) 1 tab PO DAILY [facility] Last Admin: 04/05/18 09:24 Dose: 1 tab Lisinopril (Prinivil) 10 mg PO DAILY [facility] Last Admin: 04/05/18 09:29 Dose: 10 mg Metoprolol Tartrate (Lopressor -) 12.5 mg PO BID [facility] Last Admin: 04/05/18 09:29 Dose: 12.5 mg Metoprolol Tartrate (Lopressor Injection -) 5 mg IVPUSH Q4H PRN PRN Reason: HYPERTENSION Pantoprazole Sodium (Protonix Iv) 40 mg IVPUSH BID [facility] Last Admin: 04/05/18 09:26 Dose: 40 mg - Objective Vital Signs: Vital Signs Temperature 99 F 04/05/18 10:00 Pulse Rate 74 04/05/18 12:00 Respiratory Rate 24 H 04/05/18 12:00 Blood Pressure 157/67 04/05/18 12:00 O2 Sat by Pulse Oximetry (%) 97 04/05/18 08:18 Constitutional: Yes: No Distress Cardiovascular: Yes: Regular Rate and Rhythm, S1, S2 Respiratory: Yes: Rhonchi Gastrointestinal: Yes: Normal Bowel Sounds, Soft. No: Tenderness Edema: No Labs: CBC, BMP 04/05/18 09:40 04/05/18 09:40 INR, PTT INR 1.51 (0.83-1.09) H 03/26/18 05:13 Assessment/Plan Multilobar legionella pneumonia Respiratory failure S/P extubation Sepsis secondary to lung source Leukocytosis improved + Wound c/s MRSA Continue levaquin/ vancomycin Contact precautions for + wound c/s MRSA
--- NOTE | 2018-04-05 13:10 | PN ---
Teaching Attending Note Name of Resident: Alexx Rabago ATTENDING PHYSICIAN STATEMENT I saw and evaluated the patient. I reviewed the resident's note and discussed the case with the resident. I agree with the resident's findings and plan as documented. SUBJECTIVE: Patient seen and examined in the ICU. Remains extubated. Mildly tachypneic at rest on VM O2. CXR: some increase in bilateral infiltrates OBJECTIVE: Intake & Output 04/03/18 04/04/18 04/04/18 04/05/18 00:59 00:59 23:59 23:59 Intake Total 1630 Output Total 700 Balance 930 Weight 186 lb 5 oz Last Vital Signs Temp Pulse Resp BP Pulse Ox 99 F 89 24 H 184/76 H 97 04/05/18 10:00 04/05/18 16:00 04/05/18 16:00 04/05/18 16:00 04/05/18 08:18 Active Medications Acetaminophen (Tylenol -) 650 mg PO Q6H PRN PRN Reason: PAIN LEVEL 4 - 6 Amino Acids (Prosource No Carb Liquid Pkt) 30 ml PO BID@0800,1730 [facility] Last Admin: 04/05/18 16:41 Dose: 30 ml Amlodipine Besylate (Norvasc -) 5 mg PO DAILY [facility] Last Admin: 04/05/18 09:24 Dose: 5 mg Atorvastatin Calcium (Lipitor -) 10 mg PO HS [facility] Chlorhexidine Gluconate (Hibiclens For Decolonization -) 1 applic TP HS [facility] Last Admin: 04/04/18 21:31 Dose: 1 applic Chlorhexidine Gluconate (Peridex -) 15 ml MM BID [facility] Last Admin: 04/05/18 09:25 Dose: 15 ml Furosemide (Lasix Injection -) 40 mg IVPUSH DAILY [facility] Last Admin: 04/05/18 14:25 Dose: 40 mg Levofloxacin (Levaquin 750 Mg Premixed Ivpb -) 750 mg in 150 mls @ 150 mls/hr IVPB DAILY [facility]; Protocol Last Admin: 04/05/18 09:24 Dose: 150 mls/hr Vancomycin HCl (Vancomycin (Pre-Docked)) 1,000 mg in 250 mls @ 166.667 mls/hr IVPB Q12H [facility]; Protocol Last Admin: 04/05/18 16:42 Dose: 166.667 mls/hr Propofol (Diprivan -) 1,000,000 mcg in 100 mls @ 2.619 mls/hr IVPB TITR [facility]; Protocol Last Admin: 04/05/18 14:19 Dose: Not Given Fentanyl 500 mcg/ Dextrose 100 mls @ 5 mls/hr IVPB TITR [facility]; Protocol Last Admin: 04/05/18 14:19 Dose: Not Given Insulin Aspart (Novolog Vial Sliding Scale -) 1 vial SQ ACHS [facility]; Protocol Last Admin: 04/05/18 16:34 Dose: 2 units Insulin Detemir (Levemir Vial) 24 units SQ BID@0700,2200 [facility] Last Admin: 04/05/18 06:42 Dose: 24 units Lactobacillus Acidophilus (Bacid -) 1 tab PO DAILY [facility] Last Admin: 04/05/18 09:24 Dose: 1 tab Lisinopril (Prinivil) 10 mg PO DAILY [facility] Last Admin: 04/05/18 09:29 Dose: 10 mg Metoprolol Tartrate (Lopressor Injection -) 5 mg IVPUSH Q4H PRN PRN Reason: HYPERTENSION Metoprolol Tartrate (Lopressor -) 25 mg PO BID [facility] Pantoprazole Sodium (Protonix Iv) 40 mg IVPUSH BID [facility] Last Admin: 04/05/18 09:26 Dose: 40 mg Zinc Oxide/Panthenol/Vitamin E (Balmex Cream -) 1 applic TP [facility] PRN PRN Reason: HYGEINE Gen: Extubated, awake and responsive, mildly tachypneic on VM O2 Heart: RRR Lung: Bibasilar rhonchi/rales Abd: soft, nontender Ext: + edema Laboratory Results - last 24 hr 04/04/18 04/04/18 04/05/18 17:58 21:01 05:48 WBC RBC Hgb Hct MCV MCH MCHC RDW Plt Count MPV Absolute Neuts (auto) Neutrophils % Lymphocytes % Monocytes % Eosinophils % Basophils % Nucleated RBC % Sodium Potassium Chloride Carbon Dioxide Anion Gap BUN Creatinine Creat Clearance w eGFR POC Glucometer 183.27056 175.84050 175.45165 Random Glucose Calcium Phosphorus Magnesium Total Bilirubin AST ALT Alkaline Phosphatase Total Protein Albumin 04/05/18 04/05/18 04/05/18 09:40 09:40 11:56 WBC 14.8 H RBC 4.23 Hgb 11.5 L Hct 33.3 L MCV 78.7 L MCH 27.3 MCHC 34.7 RDW 14.3 Plt Count 425 MPV 9.4 Absolute Neuts (auto) 12.4 H Neutrophils % 83.6 H Lymphocytes % 8.1 D Monocytes % 5.7 Eosinophils % 2.1 Basophils % 0.5 Nucleated RBC % 0 Sodium 147 H Potassium 3.1 L Chloride 104 Carbon Dioxide 33 H Anion Gap 10 BUN 23 H Creatinine 0.8 Creat Clearance w eGFR > 60 POC Glucometer [phone] Random Glucose 160 H Calcium 8.0 L Phosphorus 3.4 Magnesium 2.0 Total Bilirubin 0.4 AST 45 H ALT 56 Alkaline Phosphatase 99 Total Protein 5.5 L Albumin 1.6 L ASSESSMENT AND PLAN: Acute Hypoxic Respiratory Failure Legionella Pneumonia Severe Sepsis Acute Kidney Injury Lactic Acidosis ARDS Atrial Fibrillation with RVR HTN DM - Lasix daily - continue antibiotics - rate control - continue anticoagulation - monitor urine output, creatinine - Supplemental O2 to maintain saturation - inhaled bronchodilators - PO as tolerated - DVT/GI prophylaxis Dr Stephens
--- NOTE | 2018-04-05 13:27 | PN ---
Physical Exam: SUBJECTIVE: Patient seen and examined in the ICU. Extubated over the weekend. Patient maintaining good MAP/UOP and not on pressers. afebrile. no complaints. OBJECTIVE: Vital Signs Period Temp Pulse Resp BP Sys/Santacruz Pulse Ox Last 24 Hr 98.6 F-99.9 F 68-86 16-26 156-170/65-76 97-97 GENERAL: AO x3 NAD on venti mask LUNGS: mild rhonci b/l improving HEART: RRR, S1 S2 no m/r/g ABDOMEN: BS present, soft, NTND Extremities: no peripheral edema noted SKIN: Warm, dry, normal turgor, no rashes or lesions noted Laboratory Results - last 24 hr 04/04/18 04/04/18 04/05/18 17:58 21:01 05:48 WBC RBC Hgb Hct MCV MCH MCHC RDW Plt Count MPV Absolute Neuts (auto) Neutrophils % Lymphocytes % Monocytes % Eosinophils % Basophils % Nucleated RBC % Sodium Potassium Chloride Carbon Dioxide Anion Gap BUN Creatinine Creat Clearance w eGFR POC Glucometer 183.90902 175.61459 175.61864 Random Glucose Calcium Phosphorus Magnesium Total Bilirubin AST ALT Alkaline Phosphatase Total Protein Albumin 04/05/18 04/05/18 04/05/18 09:40 09:40 11:56 WBC 14.8 H RBC 4.23 Hgb 11.5 L Hct 33.3 L MCV 78.7 L MCH 27.3 MCHC 34.7 RDW 14.3 Plt Count 425 MPV 9.4 Absolute Neuts (auto) 12.4 H Neutrophils % 83.6 H Lymphocytes % 8.1 D Monocytes % 5.7 Eosinophils % 2.1 Basophils % 0.5 Nucleated RBC % 0 Sodium 147 H Potassium 3.1 L Chloride 104 Carbon Dioxide 33 H Anion Gap 10 BUN 23 H Creatinine 0.8 Creat Clearance w eGFR > 60 POC Glucometer 172.07110 Random Glucose 160 H Calcium 8.0 L Phosphorus 3.4 Magnesium 2.0 Total Bilirubin 0.4 AST 45 H ALT 56 Alkaline Phosphatase 99 Total Protein 5.5 L Albumin 1.6 L Active Medications Generic Name Dose Route Start Last Admin Trade Name Freq PRN Reason Stop Dose Admin Acetaminophen 1,000 mg 03/26/18 19:02 03/29/18 11:59 Ofirmev Injection - IVPB 1,000 mg Q6H PRN Administration FEVER Amino Acids 30 ml 10/27/18 17:30 04/05/18 09:00 Prosource No Carb Liquid Pkt PO 30 ml BID@0800,1730 [facility] Administration Amlodipine Besylate 5 mg 04/01/18 11:45 04/05/18 09:24 Norvasc - PO 5 mg DAILY [facility] Administration Atorvastatin Calcium 10 mg 04/05/18 22:00 Lipitor - PO HS [facility] Chlorhexidine Gluconate 1 applic 03/26/18 22:00 04/04/18 21:31 Hibiclens For Decolonization - TP 1 applic HS [facility] Administration Chlorhexidine Gluconate 15 ml 03/28/18 10:00 04/05/18 09:25 Peridex - MM 15 ml BID [facility] Administration Levofloxacin 750 mg in 150 mls @ 150 mls/hr 03/26/18 16:30 04/05/18 09:24 Levaquin 750 Mg Premixed Ivpb - IVPB 150 mls/hr DAILY [facility] Administration Protocol Vancomycin HCl 1,000 mg in 250 mls @ 166.667 mls/hr 03/29/18 16:30 04/05/18 04:08 Vancomycin (Pre-Docked) IVPB 166.667 mls/hr Q12H [facility] Administration Protocol Propofol 1,000,000 mcg in 100 mls @ 2.619 mls/hr 04/01/18 12:45 04/04/18 14: 16 Diprivan - IVPB Not Given TITR [facility] Protocol 5 MCG/KG/MIN Fentanyl 500 mcg/ Dextrose 100 mls @ 5 mls/hr 04/02/18 12:30 04/04/18 14:15 IVPB Not Given TITR [facility] Protocol 25 MCG/HR Insulin Aspart 1 vial 04/05/18 11:15 04/05/18 11:57 Novolog Vial Sliding Scale - SQ 2 units ACHS [facility] Administration Protocol Insulin Detemir 24 units 04/04/18 11:37 04/05/18 06:42 Levemir Vial SQ 24 units BID@0700,2200 [facility] Administration Lactobacillus Acidophilus 1 tab 03/31/18 12:00 04/05/18 09:24 Bacid - PO 1 tab DAILY [facility] Administration Lisinopril 10 mg 04/05/18 10:00 04/05/18 09:29 Prinivil PO 10 mg DAILY [facility] Administration Metoprolol Tartrate 12.5 mg 03/28/18 12:15 04/05/18 09:29 Lopressor - PO 12.5 mg BID [facility] Administration Metoprolol Tartrate 5 mg 04/02/18 19:17 Lopressor Injection - IVPUSH Q4H PRN HYPERTENSION Pantoprazole Sodium 40 mg 03/26/18 12:00 04/05/18 09:26 Protonix Iv IVPUSH 40 mg BID [facility] Administration ASSESSMENT/PLAN: 62 year old male who presented for shortness of breath, fever, chills, malaise and was found to have complete left lung white out on CXR, new onset atrial fibrillation, and DKA. Patient admitted to ICU for further monitoring and management. Found w/ presum pos legionella antigen on abx, extubated and stable over the weekend NEURO: successful extubation over the weekend PULMONARY #Acute Hypoxic Respiratory failure - successful extubation over the weekend -Likely secondary to Post obstructive Pneumonia from total white out and mass in the left lung. -CT showing consolidation of entire L lung and post R lung c/w PNA -legionella antigen presumptive positive, serum legionella -c/w vancomycin and levaquin, per ID -monitor QTc, amio was dcd -on VM, keep SpO2 >90%, will try for NC and give incentive spirometer, -CXR shows improvement of L side -CXR for arlen -daily lasix IVP to help remove fluid in lung INFECTIOUS DISEASE #Sepsis Secondary to Bilateral Pneumonia -afebrile overnight -central line removed 03/29/18, Patient maintaining good MAP and not on pressers. -legionella antigen presumptive positive -c/w vancomycin and levaquin -Sputum, Blood cultures neg -ID consult -s/p steroids -daily lasix IVP to help remove fluid in lung -bacid CARDIOLOGY restart statin #Atrial Fibrillation w/ RVR HR remains ctl -c/w lovenox 90 bid -c/w metop 12.5 bid PO for rate ctl -ECHO RV ystolic 30-40, nl LVSF, nl EF -Cardiology consult -central line removed 03/29/18, Patient maintaining good MAP and not on pressers. pt has 2 good peripheral lines #HTN -restart lisinopril -c/w norvasc RENAL [place] maintaining good UOP s/p Lasix 40 IV x2 daily lasix IVP to help remove fluid in lung monitor Cr Endocrine #hyperglycemia ISS levemir 24U, per primary team HEMATOLOGY -H/H now stable -Continue to Trend. Will transfuse if less than 7 #Elevated INR on admission -possible malignancy -Patient denied taking Coumadin, or any blood thinners. Denied alcohol use. -Continue to monitor F/E/N -no IVF at this time -replete prn -speech swallow eval, currently on tube feeds Prophylaxis -c/w lovenox 90 bid for DVT/A-fib -protonix bid Disposition -Full code -PT eval -pt remains extubated and determined stable and ready for transfer to [facility], further care per primary team. Visit type - Emergency Visit Emergency Visit: Yes ED Registration Date: 03/25/18 Care time: The patient presented to the Emergency Department on the above date and was hospitalized for further evaluation of their emergent condition. - New Patient This patient is new to me today: Yes Date on this admission: 04/05/18 - Critical Care Critical Care patient: Yes Total Critical Care Time (in minutes): 38 Critical Care Statement: The care of this patient involved high complexity decision making to prevent further life threatening deterioration of the patient 's condition and/or to evaluate & treat vital organ system(s) failure or risk of failure.
[2018-04-05] MEDS ORDERED: FUROSEMIDE 40 MG/4 ML INJECTABLE VIAL IVPUSH SCH (13:30)
[2018-04-05] MEDS: FENTANYL INJECTION 500 MCG in DEXTROSE 5%-WATER - 90 ML IVPB SCH (14:19)
[2018-04-05] MEDS: PROPOFOL 1,000,000 MCG/100 ML VIAL IVPB SCH (14:19)
--- NOTE | 2018-04-05 14:19 | PN ---
Progress Note (short form) - Note Progress Note: Chief Complaint: resp failure History of Present Illness: no chest pain, palps, dizzy, lightheadedness Current Medications Acetaminophen (Ofirmev Injection -) 1,000 mg IVPB Q6H PRN PRN Reason: FEVER Last Admin: 03/29/18 11:59 Dose: 1,000 mg Amino Acids (Prosource No Carb Liquid Pkt) 30 ml PO BID@0800,1730 [facility] Last Admin: 04/05/18 09:00 Dose: 30 ml Amlodipine Besylate (Norvasc -) 5 mg PO DAILY [facility] Last Admin: 04/05/18 09:24 Dose: 5 mg Atorvastatin Calcium (Lipitor -) 10 mg PO HS [facility] Chlorhexidine Gluconate (Hibiclens For Decolonization -) 1 applic TP HS [facility] Last Admin: 04/04/18 21:31 Dose: 1 applic Chlorhexidine Gluconate (Peridex -) 15 ml MM BID [facility] Last Admin: 04/05/18 09:25 Dose: 15 ml Furosemide (Lasix Injection -) 40 mg IVPUSH DAILY [facility] Levofloxacin (Levaquin 750 Mg Premixed Ivpb -) 750 mg in 150 mls @ 150 mls/hr IVPB DAILY [facility]; Protocol Last Admin: 04/05/18 09:24 Dose: 150 mls/hr Vancomycin HCl (Vancomycin (Pre-Docked)) 1,000 mg in 250 mls @ 166.667 mls/hr IVPB Q12H [facility]; Protocol Last Admin: 04/05/18 04:08 Dose: 166.667 mls/hr Propofol (Diprivan -) 1,000,000 mcg in 100 mls @ 2.619 mls/hr IVPB TITR [facility]; Protocol Last Admin: 04/04/18 14:16 Dose: Not Given Fentanyl 500 mcg/ Dextrose 100 mls @ 5 mls/hr IVPB TITR [facility]; Protocol Last Admin: 04/04/18 14:15 Dose: Not Given Insulin Aspart (Novolog Vial Sliding Scale -) 1 vial SQ ACHS [facility]; Protocol Last Admin: 04/05/18 11:57 Dose: 2 units Insulin Detemir (Levemir Vial) 24 units SQ BID@0700,2200 [facility] Last Admin: 04/05/18 06:42 Dose: 24 units Lactobacillus Acidophilus (Bacid -) 1 tab PO DAILY [facility] Last Admin: 04/05/18 09:24 Dose: 1 tab Lisinopril (Prinivil) 10 mg PO DAILY [facility] Last Admin: 04/05/18 09:29 Dose: 10 mg Metoprolol Tartrate (Lopressor -) 12.5 mg PO BID [facility] Last Admin: 04/05/18 09:29 Dose: 12.5 mg Metoprolol Tartrate (Lopressor Injection -) 5 mg IVPUSH Q4H PRN PRN Reason: HYPERTENSION Pantoprazole Sodium (Protonix Iv) 40 mg IVPUSH BID [facility] Last Admin: 04/05/18 09:26 Dose: 40 mg - Objective Vital Signs: Vital Signs Period Temp Pulse Resp BP Sys/Santacruz Pulse Ox Last 24 Hr 98.6 F-99 F 68-86 18-26 156-170/65-76 97-97 Constitutional: Yes: No Distress, Calm Cardiovascular: Yes: Regular Rate and Rhythm, S1, S2, Other (PMI non diplaced). +JVD No: Gallop, Murmur Respiratory: Yes: +wheezes No: Accessory Muscle Use Gastrointestinal: Yes: Normal Bowel Sounds, Soft. No: Tenderness Extremities: No: Cold Edema: No Integumentary: No: Jaundice Neurological: awake, alert Psychiatric: No: Agitated ct chest: b/l pna ecg: afib vr 154, no ischemic changes, nl qtc ecg 03/30 sinus, QTc 403 (stable) echo 03/18: nl LVSF. nl RV. nl LA. mild MR/TR. RVSP 30-40 tele: sinus, brief PAT episodes a/p: 62 m hx dm, hld, htn here with fever, leg wound. sepsis, PNA, acute resp failure: -has sahu abscess as well as b/l pna -cont abx per ID/crit care -received two doses of IV lasix over the weekend - congestion noted on CXR - continue lasix 40 mg IV daily -no pressor requirement at present, bp stable afib, rvr: -unknown if new onset -in er started on dilt gtt and amio gtt-->sinus -cont metoprolol -chadsvasc 2 warrants ac, on lovenox - transition to NOAC when able to take PO SONIDO: -bun/creat up 03/27, ? intravasc vol depletion in setting of DKA -improved with IVF dm: -on insulin -per crit care htn: - elevated today, ACEI started -cont bb, norvasc, ACEI - uptitrate as needed
[2018-04-05] MEDS ORDERED: ACETAMINOPHEN 325 MG TABLET (FP) PO PRN (14:36)
[2018-04-05] MEDS ORDERED: KCL 10 MEQ IVPB 10 MEQ/100 ML INFUS.BAG IVPB SCH (15:45)
[2018-04-05] MEDS ORDERED: ZINC OXIDE/PETROLATUM,WHITE 1 APPLIC OINT...G. TP PRN (16:09)
[2018-04-05] MEDS ORDERED: ZINC OXIDE/PANTHENOL/VITAMIN E 56 GM TUBE TP PRN ×2 (16:11→20:39)
[2018-04-05] MEDS ORDERED: POTASSIUM CHLORIDE TABS 20 MEQ TABLET.ER (FP) PO ONE (16:25)
[2018-04-05] MEDS ORDERED: METOPROLOL TARTRATE 25 MG TABLET (FP) PO SCH (16:28)
[2018-04-05] MEDS ORDERED: FENTANYL INJECTION 500 MCG in DEXTROSE 5%-WATER - 90 ML IVPB SCH (20:39)
[2018-04-05] MEDS ORDERED: PROPOFOL 1,000,000 MCG/100 ML VIAL IVPB SCH (20:39)
[2018-04-05] MEDS ORDERED: METOPROLOL TARTRATE 5 MG/5 ML VIAL IVPUSH PRN (20:39)
[2018-04-05] MEDS ORDERED: ATORVASTATIN CA 10 MG TABLET (FP) PO SCH (22:00)
[2018-04-05] MEDS: ATORVASTATIN CA 10 MG TABLET (FP) PO SCH (22:12)
[2018-04-05] MEDS: ACETAMINOPHEN 325 MG TABLET (FP) PO PRN (22:13)
[2018-04-06] MEDS: VANCOMYCIN 1 GRAM (PRE-DOCKED) 1,000 MG/250 ML BAG IVPB SCH ×2 (02:40→14:42)
[2018-04-06] MEDS: INSULIN SLIDING SCALE (NOVOLOG) 1 VIAL SQ SCH ×5 (06:15→21:31)
[2018-04-06] MEDS: INSULIN (LEVEMIR) 100 UNITS/ML UNITS SQ SCH ×2 (06:16→21:29)
[2018-04-06 06:58] LABS: ALBUMIN 1.7 g/dl (3.4-5.0); ALK PHOS 97 U/L (45-117); ANION GAP 7 MMOL/L (8-16); BILIRUBIN,TOTAL 0.5 mg/dL (0.2-1); BLOOD UREA NITROGEN 25 mg/dL (7-18); CALCIUM 7.9 mg/dL (8.5-10.1); CHLORIDE 104 mmol/L (98-107); CO2 35 mmol/L (21-32); CREATININE 0.8 mg/dL (0.55-1.3); GLUCOSE,RANDOM 261 mg/dL (74-106); SGOT/AST 27 U/L (15-37); SGPT/ALT 48 U/L (13-61); SODIUM 146 mmol/L (136-145); TOT PROT 5.4 g/dl (6.4-8.2)
[2018-04-06 07:08] LABS: BASO % 0.5 % (0-2.0); EOS % 1.2 % (0-4.5); HEMATOCRIT 31.7 % (35.4-49); HEMOGLOBIN 11.1 GM/dL (11.7-16.9); LYMPH % 9.9 % (8-40); MCH 27.7 pg (25.7-33.7); MCHC 35.2 g/dl (32.0-35.9); MEAN CELL VOLUME 78.8 fl (80-96); MEAN PLT VOLUME 9.5 fl (7.5-11.1); MONO % 7.4 % (3.8-10.2); PLATELET COUNT 431 K/MM3 (134-434); RBC 4.02 M/mm3 (4.00-5.60); RDW 14.7 % (11.9-15.9); WHITE BLOOD COUNT 14.8 K/mm3 (4.0-10.0)
[2018-04-06] MEDS: LACTOBACILLUS ACIDOPHILUS 1 TABLET PO SCH (09:00)
[2018-04-06] MEDS: AMINO ACIDS/PROTEIN HYDROLYS 30 ML LIQUID.PKT PO SCH ×2 (09:00→16:49)
[2018-04-06] MEDS: METOPROLOL TARTRATE 25 MG TABLET (FP) PO SCH (09:01)
[2018-04-06] MEDS: LISINOPRIL 10 MG TABLET (FP) PO SCH (09:01)
[2018-04-06] MEDS: amLODIPine BESYLATE 5 MG TABLET (FP) PO SCH (09:01)
--- NOTE | 2018-04-06 09:49 | PN ---
Progress Note (short form) - Note Progress Note: Chief Complaint: resp failure History of Present Illness: geels better today. no chest pain, palps, dizzy, lightheadedness Current Medications Acetaminophen (Tylenol -) 650 mg PO Q6H PRN PRN Reason: PAIN LEVEL 4 - 6 Last Admin: 04/05/18 22:13 Dose: 650 mg Amino Acids (Prosource No Carb Liquid Pkt) 30 ml PO BID@0800,1730 [facility] Last Admin: 04/06/18 09:00 Dose: 30 ml Amlodipine Besylate (Norvasc -) 5 mg PO DAILY [facility] Last Admin: 04/06/18 09:01 Dose: 5 mg Atorvastatin Calcium (Lipitor -) 10 mg PO HS [facility] Last Admin: 04/05/18 22:12 Dose: 10 mg Furosemide (Lasix Injection -) 40 mg IVPUSH DAILY [facility] Levofloxacin (Levaquin 750 Mg Premixed Ivpb -) 750 mg in 150 mls @ 100 mls/hr IVPB DAILY [facility]; Protocol Vancomycin HCl (Vancomycin (Pre-Docked)) 1,000 mg in 250 mls @ 166.667 mls/hr IVPB Q12H [facility]; Protocol Last Admin: 04/06/18 02:40 Dose: 166.667 mls/hr Insulin Aspart (Novolog Vial Sliding Scale -) 1 vial SQ ACHS [facility]; Protocol Last Admin: 04/06/18 06:15 Dose: 6 units Insulin Detemir (Levemir Vial) 24 units SQ BID@0700,2200 [facility] Last Admin: 04/06/18 06:16 Dose: 24 unit Lactobacillus Acidophilus (Bacid -) 1 tab PO DAILY [facility] Last Admin: 04/06/18 09:00 Dose: 1 tab Lisinopril (Prinivil) 10 mg PO DAILY [facility] Last Admin: 04/06/18 09:01 Dose: 10 mg Metoprolol Tartrate (Lopressor -) 25 mg PO BID [facility] Last Admin: 04/06/18 09:01 Dose: 25 mg Metoprolol Tartrate (Lopressor Injection -) 5 mg IVPUSH Q4H PRN PRN Reason: HYPERTENSION Pantoprazole Sodium (Protonix Iv) 40 mg IVPUSH BID [facility] Last Admin: 04/05/18 22:12 Dose: 40 mg Zinc Oxide/Panthenol/Vitamin E (Balmex Cream -) 1 applic TP [facility] PRN PRN Reason: HYGEINE - Objective Vital Signs: Vital Signs Period Temp Pulse Resp BP Sys/Santacruz Pulse Ox Last 24 Hr 98.1 F-99 F 73-89 18-28 144-184/65-80 92-92 Constitutional: Yes: No Distress, Calm Cardiovascular: Yes: Regular Rate and Rhythm, S1, S2, Other (PMI non diplaced). +JVD No: Gallop, Murmur Respiratory: Yes: +roland rales at bases No: Accessory Muscle Use Gastrointestinal: Yes: Normal Bowel Sounds, Soft. No: Tenderness Extremities: No: Cold Edema: No Integumentary: No: Jaundice Neurological: awake, alert Psychiatric: No: Agitated ct chest: b/l pna ecg: afib vr 154, no ischemic changes, nl qtc ecg 03/30 sinus, QTc 403 (stable) echo 03/18: nl LVSF. nl RV. nl LA. mild MR/TR. RVSP 30-40 tele: sinus, brief PAT episodes a/p: 62 m hx dm, hld, htn here with fever, leg wound. sepsis, PNA, acute resp failure: -has sahu abscess as well as b/l pna - was intubated, now extubated and transferred to floor, bp stable - receiving IV lasix, likely third spacing related to IVF - improving, continue lasix 40 mg IV daily - monitor Cr, daily standing weight, I/O -cont abx per ID, primary afib, rvr: -unknown if new onset -in er started on dilt gtt and amio gtt-->sinus -cont metoprolol, inc dose to 50 mg BID -chadsvasc 2 warrants ac, on lovenox - transition to NOAC when able to take PO SONIDO: -bun/creat up 03/27, ? intravasc vol depletion in setting of DKA -improved with IVF dm: -on insulin -per crit care htn: - elevated -cont bb, norvasc, ACEI - will increase bb to metoprolol 50 mg BID, BP elevated and has had episodes of SVT
[2018-04-06] MEDS: FUROSEMIDE 40 MG/4 ML INJECTABLE VIAL IVPUSH SCH (09:54)
[2018-04-06] MEDS: PANTOPRAZOLE SODIUM 40 MG VIAL IVPUSH SCH ×2 (09:55→21:29)
--- NOTE | 2018-04-06 10:40 | PN ---
Progress Note, INTEGRITY DIRECTOR - Note Progress Note: Selected Entries 04/05/18 04/05/18 04/05/18 02:00 06:00 10:00 Supper Temperature 98.6 F 99 F 99 F 04/05/18 04/05/18 04/06/18 19:00 22:00 01:43 Supper NPO NPO Temperature 98.9 F 98.6 F 04/06/18 06:00 Supper Temperature 98.1 F Laboratory Tests 04/05/18 04/06/18 09:40 06:20 WBC 14.8 H 14.8 H Transferred from ICU.Now on telemetry. NGT in place. Vocal quality improving,still weak and dysphonic. Likely edema, improving, s/p prolonged intubation. Swallow still quite weak with reduced laryngeal excursion, slow elevation and depression. Cont NPO/NGT feedings. MBS hopefully in next couple of days.
--- NOTE | 2018-04-06 12:04 | EKG ---
Test Reason : Blood Pressure : / mmHG Vent. Rate : 072 BPM Atrial Rate : 072 BPM P-R Int : 134 ms QRS Dur : 068 ms QT Int : 408 ms P-R-T Axes : 035 040 109 degrees QTc Int : 446 ms NORMAL SINUS RHYTHM WITH SINUS ARRHYTHMIA T WAVE ABNORMALITY, CONSIDER LATERAL ISCHEMIA ABNORMAL ECG Confirmed by MD ARIANNA, CUONG ([id number]) on 04/06/2018 12:04:08 PM Referred By: BRISEIDA CONNER Confirmed By:CUONG KELLER MD
--- NOTE | 2018-04-06 12:25 | PN ---
Progress Note, Physician History of Present Illness: Awake, alert No complaints Breathing non-labored Denies chest pain/ dyspnea / cough No c/o fever/ chills Afebrile WBC improved 14.1 - Current Medication List Current Medications: Active Medications Acetaminophen (Tylenol -) 650 mg PO Q6H PRN PRN Reason: PAIN LEVEL 4 - 6 Last Admin: 04/05/18 22:13 Dose: 650 mg Amino Acids (Prosource No Carb Liquid Pkt) 30 ml PO BID@0800,1730 [facility] Last Admin: 04/06/18 09:00 Dose: 30 ml Amlodipine Besylate (Norvasc -) 5 mg PO DAILY [facility] Last Admin: 04/06/18 09:01 Dose: 5 mg Atorvastatin Calcium (Lipitor -) 10 mg PO HS [facility] Last Admin: 04/05/18 22:12 Dose: 10 mg Furosemide (Lasix Injection -) 40 mg IVPUSH DAILY [facility] Last Admin: 04/06/18 09:54 Dose: 40 mg Levofloxacin (Levaquin 750 Mg Premixed Ivpb -) 750 mg in 150 mls @ 100 mls/hr IVPB DAILY [facility]; Protocol Last Admin: 04/06/18 09:54 Dose: 100 mls/hr Vancomycin HCl (Vancomycin (Pre-Docked)) 1,000 mg in 250 mls @ 166.667 mls/hr IVPB Q12H [facility]; Protocol Last Admin: 04/06/18 02:40 Dose: 166.667 mls/hr Insulin Aspart (Novolog Vial Sliding Scale -) 1 vial SQ ACHS [facility]; Protocol Last Admin: 04/06/18 06:15 Dose: 6 units Insulin Detemir (Levemir Vial) 24 units SQ BID@0700,2200 [facility] Last Admin: 04/06/18 06:16 Dose: 24 unit Lactobacillus Acidophilus (Bacid -) 1 tab PO DAILY [facility] Last Admin: 04/06/18 09:00 Dose: 1 tab Lisinopril (Prinivil) 10 mg PO DAILY [facility] Last Admin: 04/06/18 09:01 Dose: 10 mg Metoprolol Tartrate (Lopressor Injection -) 5 mg IVPUSH Q4H PRN PRN Reason: HYPERTENSION Metoprolol Tartrate (Lopressor -) 50 mg PO BID [facility] Pantoprazole Sodium (Protonix Iv) 40 mg IVPUSH BID [facility] Last Admin: 04/06/18 09:55 Dose: 40 mg Zinc Oxide/Panthenol/Vitamin E (Balmex Cream -) 1 applic TP ASDIR PRN PRN Reason: HYGEINE - Objective Vital Signs: Vital Signs Temperature 97.5 F L 04/06/18 10:00 Pulse Rate 72 04/06/18 10:00 Respiratory Rate 20 04/06/18 10:00 Blood Pressure 154/71 04/06/18 10:00 O2 Sat by Pulse Oximetry (%) 90 L 04/06/18 10:00 Constitutional: Yes: No Distress Cardiovascular: Yes: Regular Rate and Rhythm, S1, S2 Respiratory: Yes: Rhonchi Gastrointestinal: Yes: Normal Bowel Sounds, Soft. No: Tenderness Edema: No Labs: CBC, BMP 04/06/18 06:20 04/06/18 06:20 INR, PTT INR 1.51 (0.83-1.09) H 03/26/18 05:13 Assessment/Plan Multilobar legionella pneumonia improved Respiratory failure S/P extubation Sepsis secondary to lung source Leukocytosis improved + Wound c/s MRSA Continue levaquin/ vancomycin Contact precautions for + wound c/s MRSA
--- NOTE | 2018-04-06 13:16 | PN ---
Progress Note, Physician History of Present Illness: pulmonary awake,on nasal cannula -resp distress - Current Medication List Current Medications: Active Medications Acetaminophen (Tylenol -) 650 mg PO Q6H PRN PRN Reason: PAIN LEVEL 4 - 6 Last Admin: 04/05/18 22:13 Dose: 650 mg Amino Acids (Prosource No Carb Liquid Pkt) 30 ml PO BID@0800,1730 [facility] Last Admin: 04/06/18 09:00 Dose: 30 ml Amlodipine Besylate (Norvasc -) 5 mg PO DAILY [facility] Last Admin: 04/06/18 09:01 Dose: 5 mg Atorvastatin Calcium (Lipitor -) 10 mg PO HS [facility] Last Admin: 04/05/18 22:12 Dose: 10 mg Furosemide (Lasix Injection -) 40 mg IVPUSH DAILY [facility] Last Admin: 04/06/18 09:54 Dose: 40 mg Levofloxacin (Levaquin 750 Mg Premixed Ivpb -) 750 mg in 150 mls @ 100 mls/hr IVPB DAILY [facility]; Protocol Last Admin: 04/06/18 09:54 Dose: 100 mls/hr Vancomycin HCl (Vancomycin (Pre-Docked)) 1,000 mg in 250 mls @ 166.667 mls/hr IVPB Q12H [facility]; Protocol Last Admin: 04/06/18 02:40 Dose: 166.667 mls/hr Insulin Aspart (Novolog Vial Sliding Scale -) 1 vial SQ ACHS [facility]; Protocol Last Admin: 04/06/18 12:38 Dose: 4 units Insulin Detemir (Levemir Vial) 24 units SQ BID@0700,2200 [facility] Last Admin: 04/06/18 06:16 Dose: 24 unit Lactobacillus Acidophilus (Bacid -) 1 tab PO DAILY [facility] Last Admin: 04/06/18 09:00 Dose: 1 tab Lisinopril (Prinivil) 10 mg PO DAILY [facility] Last Admin: 04/06/18 09:01 Dose: 10 mg Metoprolol Tartrate (Lopressor Injection -) 5 mg IVPUSH Q4H PRN PRN Reason: HYPERTENSION Metoprolol Tartrate (Lopressor -) 50 mg PO BID [facility] Pantoprazole Sodium (Protonix Iv) 40 mg IVPUSH BID [facility] Last Admin: 04/06/18 09:55 Dose: 40 mg Zinc Oxide/Panthenol/Vitamin E (Balmex Cream -) 1 applic TP ASDIR PRN PRN Reason: HYGEINE - Objective Vital Signs: Vital Signs Temperature 97.5 F L 04/06/18 10:00 Pulse Rate 72 04/06/18 10:00 Respiratory Rate 20 04/06/18 10:00 Blood Pressure 154/71 04/06/18 10:00 O2 Sat by Pulse Oximetry (%) 90 L 04/06/18 10:00 Constitutional: Yes: Well Nourished, Calm Eyes: Yes: WNL HENT: Yes: WNL Neck: Yes: WNL Cardiovascular: Yes: Pulse Irregular, S1, S2 Respiratory: Yes: Rhonchi (few rhonchi) Gastrointestinal: Yes: Normal Bowel Sounds, Soft Extremities: Yes: WNL Edema: No Labs: CBC, BMP 04/06/18 06:20 04/06/18 06:20 INR, PTT INR 1.51 (0.83-1.09) H 03/26/18 05:13 - ....Imaging Chest X-ray: Report Reviewed, Image Reviewed Problem List - Problems (1) SONIDO (acute kidney injury) Code(s): N17.9 - ACUTE KIDNEY FAILURE, UNSPECIFIED (2) Acute respiratory failure with hypoxia Code(s): J96.01 - ACUTE RESPIRATORY FAILURE WITH HYPOXIA (3) Fever Code(s): R50.9 - FEVER, UNSPECIFIED Qualifiers: Fever type: unspecified Qualified Code(s): R50.9 - Fever, unspecified (4) Legionella pneumonia Code(s): A48.1 - LEGIONNAIRES' DISEASE (5) Sepsis Code(s): A41.9 - SEPSIS, UNSPECIFIED ORGANISM Qualifiers: Sepsis type: sepsis due to unspecified organism Qualified Code(s): A41.9 - Sepsis, unspecified organism Assessment/Plan ASSESSMENT AND PLAN: Acute Hypoxic Respiratory Failure improving Legionella Pneumonia Severe Sepsis Acute Kidney Injury improving Lactic Acidosis ARDS Atrial Fibrillation with RVR HTN DM - Lasix daily - continue antibiotics - rate control - continue anticoagulation - monitor urine output, creatinine - Supplemental O2 to maintain saturation - inhaled bronchodilators - PO as tolerated - DVT/GI prophylaxis DR BOWERS
[2018-04-06 16:33] VITALS: BMI 29.1
--- NOTE | 2018-04-06 17:20 | PN ---
Teaching Attending Note Name of Resident: Joe Larkin ATTENDING PHYSICIAN STATEMENT I saw and evaluated the patient. I reviewed the resident's note and discussed the case with the resident. I agree with the resident's findings and plan as documented. SUBJECTIVE: Patient appears comfortable. He has no complaints. OBJECTIVE: Vital Signs Period Temp Pulse Resp BP Sys/Santacruz Pulse Ox Last 24 Hr 97.5 F-98.9 F 72-89 18-28 144-184/65-80 90-92 HEART: S1S2, RRR LUNGS: Clear ABDOMEN: Soft, mildly distended, non-tender, normal BS EXTREMITIES: No edema Laboratory Results - last 24 hr 04/05/18 04/05/18 04/06/18 16:32 21:59 05:10 WBC RBC Hgb Hct MCV MCH MCHC RDW Plt Count MPV Absolute Neuts (auto) Neutrophils % Lymphocytes % Monocytes % Eosinophils % Basophils % Nucleated RBC % Sodium Potassium Chloride Carbon Dioxide Anion Gap BUN Creatinine Creat Clearance w eGFR POC Glucometer 180.87182 242 257 Random Glucose Calcium Phosphorus Magnesium Total Bilirubin AST ALT Alkaline Phosphatase Total Protein Albumin 04/06/18 04/06/18 04/06/18 06:20 06:20 11:16 WBC 14.8 H RBC 4.02 Hgb 11.1 L Hct 31.7 L MCV 78.8 L MCH 27.7 MCHC 35.2 RDW 14.7 Plt Count 431 MPV 9.5 Absolute Neuts (auto) 12.0 H Neutrophils % 81.0 Lymphocytes % 9.9 D Monocytes % 7.4 Eosinophils % 1.2 Basophils % 0.5 Nucleated RBC % 0 Sodium 146 H Potassium 3.0 L Chloride 104 Carbon Dioxide 35 H Anion Gap 7 L BUN 25 H Creatinine 0.8 Creat Clearance w eGFR > 60 POC Glucometer 226 Random Glucose 261 H Calcium 7.9 L Phosphorus 3.0 Magnesium 2.0 Total Bilirubin 0.5 AST 27 ALT 48 Alkaline Phosphatase 97 Total Protein 5.4 L Albumin 1.7 L Current Medications Generic Name Dose Route Start Last Admin Trade Name Freq PRN Reason Stop Dose Admin Acetaminophen 650 mg 04/05/18 20:39 04/05/18 22:13 Tylenol - PO 650 mg Q6H PRN Administration PAIN LEVEL 4 - 6 Amino Acids 30 ml 04/06/18 08:00 04/06/18 09:00 Prosource No Carb Liquid Pkt PO 30 ml BID@0800,1730 [facility] Administration Amlodipine Besylate 5 mg 04/06/18 10:00 04/06/18 09:01 Norvasc - PO 5 mg DAILY [facility] Administration Atorvastatin Calcium 10 mg 04/05/18 22:00 04/05/18 22:12 Lipitor - PO 10 mg HS [facility] Administration Furosemide 40 mg 04/06/18 10:00 04/06/18 09:54 Lasix Injection - IVPUSH 40 mg DAILY [facility] Administration Levofloxacin 750 mg in 150 mls @ 100 mls/hr 04/06/18 10:00 04/06/18 09:54 Levaquin 750 Mg Premixed Ivpb - IVPB 100 mls/hr DAILY [facility] Administration Protocol Vancomycin HCl 1,000 mg in 250 mls @ 166.667 mls/hr 04/06/18 03:30 04/06/18 14:42 Vancomycin (Pre-Docked) IVPB 166.667 mls/hr Q12H [facility] Administration Protocol Insulin Aspart 1 vial 04/05/18 22:00 04/06/18 12:38 Novolog Vial Sliding Scale - SQ 4 units ACHS [facility] Administration Protocol Insulin Detemir 24 units 04/05/18 22:00 04/06/18 06:16 Levemir Vial SQ 24 unit BID@0700,2200 [facility] Administration Lactobacillus Acidophilus 1 tab 04/06/18 10:00 04/06/18 09:00 Bacid - PO 1 tab DAILY [facility] Administration Lisinopril 10 mg 04/06/18 10:00 04/06/18 09:01 Prinivil PO 10 mg DAILY [facility] Administration Metoprolol Tartrate 5 mg 04/05/18 20:39 Lopressor Injection - IVPUSH Q4H PRN HYPERTENSION Metoprolol Tartrate 50 mg 04/06/18 22:00 Lopressor - PO BID [facility] Pantoprazole Sodium 40 mg 04/05/18 22:00 04/06/18 09:55 Protonix Iv IVPUSH 40 mg BID [facility] Administration Zinc Oxide/Panthenol/Vitamin E 1 applic 04/05/18 20:39 Balmex Cream - TP ASDIR PRN HYGEINE ASSESSMENT AND PLAN: This is a 62 year old man with a history of type 2 DM, HTN, hyperlipidemia who presented to the ED with SOB. 1. Acute hypoxic respiratory failure secondary to sepsis from multilobar Legionella pneumonia - Extubated yesterday - Continue oxygen to maintain saturation >90% - Continue Levaquin (day 12) 2. MRSA RLE skin abscess - s/p I&D - Continue Vancomycin (day 12) 3. Dysphagia - Continue NGT feeds - Will need modified barium swallow 4. Atrial fibrillation with RVR - Currently in SR - Continue Lopressor, Lovenox 5. Prolonged QTc - Resolved 6. Type 2 DM, uncontrolled - HbA1c 11.5 - Continue Levemir, Novolog sliding scale - Discuss NGT feeds with dietitian 7. Acute kidney injury secondary to hypoperfusion - Resolved 8. HTN - Continue Lisinopril, Lopressor 9. Hyperlipidemia
--- NOTE | 2018-04-06 18:17 | PN ---
Physical Exam: SUBJECTIVE: Patient seen and examined at bedside. Alert and awake. Endorses no complaints. Appropriately responding to questions. New morataya reinserted due to urinary retention. OBJECTIVE: Vital Signs Period Temp Pulse Resp BP Sys/Santacruz Pulse Ox Last 24 Hr 97.5 F-98.9 F 72-89 18-20 144-183/65-80 90-92 GENERAL: NAD Awake and Alert Pleasant HEAD: NC/AT EYES: EOMi PERRLA ENT: MMM NECK: Supple LUNGS: Coarse Breath sounds appreciated b/l lung fregoso HEART: RRR No MRG S1S2 ABDOMEN: NDNT No HSM EXTREMITIES: DP 2+, warm well perfused PSYCH: Normal mood, normal affect. SKIN: Wound right lower extremity resolving, no discharge or erythema. Laboratory Results - last 24 hr 04/05/18 04/06/18 04/06/18 21:59 05:10 06:20 WBC 14.8 H RBC 4.02 Hgb 11.1 L Hct 31.7 L MCV 78.8 L MCH 27.7 MCHC 35.2 RDW 14.7 Plt Count 431 MPV 9.5 Absolute Neuts (auto) 12.0 H Neutrophils % 81.0 Lymphocytes % 9.9 D Monocytes % 7.4 Eosinophils % 1.2 Basophils % 0.5 Nucleated RBC % 0 Sodium Potassium Chloride Carbon Dioxide Anion Gap BUN Creatinine Creat Clearance w eGFR POC Glucometer 242 257 Random Glucose Calcium Phosphorus Magnesium Total Bilirubin AST ALT Alkaline Phosphatase Total Protein Albumin 04/06/18 04/06/18 04/06/18 06:20 11:16 16:31 WBC RBC Hgb Hct MCV MCH MCHC RDW Plt Count MPV Absolute Neuts (auto) Neutrophils % Lymphocytes % Monocytes % Eosinophils % Basophils % Nucleated RBC % Sodium 146 H Potassium 3.0 L Chloride 104 Carbon Dioxide 35 H Anion Gap 7 L BUN 25 H Creatinine 0.8 Creat Clearance w eGFR > 60 POC Glucometer 226 333 Random Glucose 261 H Calcium 7.9 L Phosphorus 3.0 Magnesium 2.0 Total Bilirubin 0.5 AST 27 ALT 48 Alkaline Phosphatase 97 Total Protein 5.4 L Albumin 1.7 L Active Medications Generic Name Dose Route Start Last Admin Trade Name Freq PRN Reason Stop Dose Admin Acetaminophen 650 mg 04/05/18 20:39 04/05/18 22:13 Tylenol - PO 650 mg Q6H PRN Administration PAIN LEVEL 4 - 6 Amino Acids 30 ml 11/06/18 08:00 04/06/18 16:49 Prosource No Carb Liquid Pkt PO 30 ml BID@0800,1730 [facility] Administration Amlodipine Besylate 5 mg 04/06/18 10:00 04/06/18 09:01 Norvasc - PO 5 mg DAILY [facility] Administration Atorvastatin Calcium 10 mg 04/05/18 22:00 04/05/18 22:12 Lipitor - PO 10 mg HS [facility] Administration Enoxaparin Sodium 90 mg 04/06/18 22:00 Lovenox - SQ BID [facility] Furosemide 40 mg 04/06/18 10:00 04/06/18 09:54 Lasix Injection - IVPUSH 40 mg DAILY [facility] Administration Levofloxacin 750 mg in 150 mls @ 100 mls/hr 04/06/18 10:00 04/06/18 09:54 Levaquin 750 Mg Premixed Ivpb - IVPB 100 mls/hr DAILY [facility] Administration Protocol Vancomycin HCl 1,000 mg in 250 mls @ 166.667 mls/hr 04/06/18 03:30 04/06/18 14:42 Vancomycin (Pre-Docked) IVPB 166.667 mls/hr Q12H [facility] Administration Protocol Insulin Aspart 1 vial 04/05/18 22:00 04/06/18 16:49 Novolog Vial Sliding Scale - SQ 8 units ACHS [facility] Administration Protocol Insulin Detemir 24 units 04/05/18 22:00 04/06/18 06:16 Levemir Vial SQ 24 unit BID@0700,2200 [facility] Administration Lactobacillus Acidophilus 1 tab 04/06/18 10:00 04/06/18 09:00 Bacid - PO 1 tab DAILY [facility] Administration Lisinopril 10 mg 04/06/18 10:00 04/06/18 09:01 Prinivil PO 10 mg DAILY [facility] Administration Metoprolol Tartrate 5 mg 04/05/18 20:39 Lopressor Injection - IVPUSH Q4H PRN HYPERTENSION Metoprolol Tartrate 50 mg 04/06/18 22:00 Lopressor - PO BID [facility] Pantoprazole Sodium 40 mg 04/05/18 22:00 04/06/18 09:55 Protonix Iv IVPUSH 40 mg BID [facility] Administration Zinc Oxide/Panthenol/Vitamin E 1 applic 04/05/18 20:39 Balmex Cream - TP ASDIR PRN HYGEINE ASSESSMENT/PLAN: Patient is a 62 year old male with history of DM, HTN, HLD presented with complaint of shortness of breath past five days. # Sepsis secondary to Pneumonia/Legionella Pneumonia -Extubated 04/04/18 -Chest xray 04/06/18--> Congestive and infiltrative changes seen with prominent mediastinum -Patient received Vancomycin and Zosyn in ED -Now on Levaquin and Vanco. -Lactic acidosis resolved -Infectious disease Dr Rosenbaum on board -Urine/Blood cultures negative -Central line removed 03/29/18 -R Calf abscess Wound culture + for MRSA -Urine Culture + for Strep Agalactiae Group B #Urinary Retention/ Phimosis -Changed Fole Cathetar today as it was not draining per nurse. -Bladder scanned and showed 900cc in bladder, morataya was replaced with a new 16 fr morataya by myself, 900cc output, bladder re-scanned with 0cc residual in bladder. -Genital examnation shows phimosis and inability to retract foreskin. -Urology Consult- Spoke with Dr Dial. Will f/u as outpatient for possible elective circumcision. # Acute respiratory failure -Likely secondary to the pneumonia -Lasix 40 mg IV daily help remove fluid in lung # Afib -Patient denies history of Afib, or any cardiac history in past. -CHADsVASC score of 2 -Lovenox 90 bid -Cardiac monitoring -Cardiology on board -Lopressor 50 mg po BID # Hypertension OLIVERIO started today, lisinopril 10 mg po daily #IDDM -Levemir 24 U SQ BID -A1c 11.5% # FEN -No Fluids -Monitor Electrolytes -Speech/Swallow today, high risk of aspiration. Will not advance diet as of yet. # Prophylaxis -Lovenox 90 bid # Disposition -Care per icu team Visit type - Emergency Visit Emergency Visit: Yes ED Registration Date: 03/25/18 Care time: The patient presented to the Emergency Department on the above date and was hospitalized for further evaluation of their emergent condition. - New Patient This patient is new to me today: No - Critical Care Critical Care patient: No - Discharge Referral Referred to [facility] No
[2018-04-06] MEDS: METOPROLOL TARTRATE 50 MG TABLET (FP) PO SCH (21:30)
[2018-04-06] MEDS: ATORVASTATIN CA 10 MG TABLET (FP) PO SCH (21:30)
[2018-04-06] MEDS: ENOXAPARIN NA (PORCINE) 100 MG/1 ML DISP.SYRIN SQ SCH (21:41)
[2018-04-06] MEDS ORDERED: ENOXAPARIN NA (PORCINE) 80 MG/0.8 ML DISP.SYRIN SQ SCH (22:00)
[2018-04-07] MEDS: VANCOMYCIN 1 GRAM (PRE-DOCKED) 1,000 MG/250 ML BAG IVPB SCH ×2 (04:21→16:34)
[2018-04-07] MEDS: INSULIN SLIDING SCALE (NOVOLOG) 1 VIAL SQ SCH ×4 (05:59→22:34)
[2018-04-07] MEDS: INSULIN (LEVEMIR) 100 UNITS/ML UNITS SQ SCH ×2 (05:59→22:25)
[2018-04-07 08:18] LABS: MCH 25.5 pg (25.7-33.7); MCHC 32.3 g/dl (32.0-35.9); MEAN CELL VOLUME 78.9 fl (80-96); MEAN PLT VOLUME 9.4 fl (7.5-11.1); PLATELET COUNT 439 K/MM3 (134-434); RBC 4.31 M/mm3 (4.00-5.60); RDW 14.6 % (11.9-15.9); WHITE BLOOD COUNT 17.6 K/mm3 (4.0-10.0)
[2018-04-07 08:52] LABS: ANION GAP 9 MMOL/L (8-16); BLOOD UREA NITROGEN 28 mg/dL (7-18); CALCIUM 8.4 mg/dL (8.5-10.1); CHLORIDE 103 mmol/L (98-107); CO2 33 mmol/L (21-32); GLUCOSE,RANDOM 299 mg/dL (74-106); MAGNESIUM 2.2 mg/dL (1.8-2.4); PHOSPHOROUS 3.3 mg/dL (2.5-4.9); SODIUM 145 mmol/L (136-145)
--- NOTE | 2018-04-07 09:44 | PN ---
Progress Note (short form) - Note Progress Note: Chief Complaint: resp failure History of Present Illness: no chest pain, palps, dizzy, lightheadedness, dyspnea Current Medications Acetaminophen (Tylenol -) 650 mg PO Q6H PRN PRN Reason: PAIN LEVEL 4 - 6 Last Admin: 04/05/18 22:13 Dose: 650 mg Amino Acids (Prosource No Carb Liquid Pkt) 30 ml PO BID@0800,1730 [facility] Last Admin: 04/06/18 16:49 Dose: 30 ml Amlodipine Besylate (Norvasc -) 5 mg PO DAILY [facility] Last Admin: 04/06/18 09:01 Dose: 5 mg Atorvastatin Calcium (Lipitor -) 10 mg PO HS [facility] Last Admin: 04/06/18 21:30 Dose: 10 mg Enoxaparin Sodium (Lovenox -) 90 mg SQ BID [facility] Last Admin: 04/06/18 21:41 Dose: 90 mg Furosemide (Lasix Injection -) 40 mg IVPUSH DAILY [facility] Last Admin: 04/06/18 09:54 Dose: 40 mg Levofloxacin (Levaquin 750 Mg Premixed Ivpb -) 750 mg in 150 mls @ 100 mls/hr IVPB DAILY [facility]; Protocol Last Admin: 04/06/18 09:54 Dose: 100 mls/hr Vancomycin HCl (Vancomycin (Pre-Docked)) 1,000 mg in 250 mls @ 166.667 mls/hr IVPB Q12H [facility]; Protocol Last Admin: 04/07/18 04:21 Dose: 166.667 mls/hr Insulin Aspart (Novolog Vial Sliding Scale -) 1 vial SQ ACHS [facility]; Protocol Last Admin: 04/07/18 05:59 Dose: 6 units Insulin Detemir (Levemir Vial) 24 units SQ BID@0700,2200 [facility] Last Admin: 04/07/18 05:59 Dose: 24 unit Lactobacillus Acidophilus (Bacid -) 1 tab PO DAILY [facility] Last Admin: 04/06/18 09:00 Dose: 1 tab Lisinopril (Prinivil) 10 mg PO DAILY [facility] Last Admin: 04/06/18 09:01 Dose: 10 mg Metoprolol Tartrate (Lopressor Injection -) 5 mg IVPUSH Q4H PRN PRN Reason: HYPERTENSION Metoprolol Tartrate (Lopressor -) 50 mg PO BID [facility] Last Admin: 04/06/18 21:30 Dose: 50 mg Pantoprazole Sodium (Protonix Iv) 40 mg IVPUSH BID [facility] Last Admin: 04/06/18 21:29 Dose: 40 mg Zinc Oxide/Panthenol/Vitamin E (Balmex Cream -) 1 applic TP ASDIR PRN PRN Reason: HYGEINE - Objective Vital Signs: Vital Signs Period Temp Pulse Resp BP Sys/Santacruz Pulse Ox Last 24 Hr 97.5 F-99.5 F 72-95 18-20 144-174/59-75 90-93 Constitutional: Yes: No Distress, Calm Cardiovascular: Yes: Regular Rate and Rhythm, S1, S2, Other (PMI non diplaced). +JVD No: Gallop, Murmur Respiratory: Yes: dec breath sounds at bases No: Accessory Muscle Use Gastrointestinal: Yes: Normal Bowel Sounds, Soft. No: Tenderness Extremities: No: Cold Edema: No Integumentary: No: Jaundice Neurological: awake, alert Psychiatric: No: Agitated ct chest: b/l pna ecg: afib vr 154, no ischemic changes, nl qtc ecg 03/30 sinus, QTc 403 (stable) echo 03/18: nl LVSF. nl RV. nl LA. mild MR/TR. RVSP 30-40 tele: sinus, brief PAT episodes a/p: 62 m hx dm, hld, htn here with fever, leg wound. sepsis, PNA, acute resp failure: - has sahu abscess as well as b/l pna - was intubated, now extubated and transferred to floor, bp stable - receiving IV lasix, likely third spacing related to IVF - lung exam improving, no sob. continue lasix 40 mg IV daily for now - monitor Cr, daily standing weight, I/O -cont abx per ID, primary afib, rvr: -unknown if new onset -in er started on dilt gtt and amio gtt-->sinus -cont metoprolol, inc dose to 50 mg BID -chadsvasc 2 warrants ac, on lovenox - transition to NOAC when able to take PO SONIDO: -bun/creat up 03/27, ? intravasc vol depletion in setting of DKA -improved with IVF dm: -on insulin -per crit care htn: - improving -cont bb, norvasc, ACEI, uptitrate meds as tolerated
[2018-04-07 09:56] LABS: POTASSIUM 2.9 mmol/L (3.5-5.1)
--- NOTE | 2018-04-07 10:14 | PN ---
Progress Note, [employer]Y [employer] - Note Progress Note: Selected Entries 04/05/18 04/05/18 04/05/18 02:00 06:00 10:00 Supper Temperature 98.6 F 99 F 99 F 04/05/18 04/05/18 04/06/18 19:00 22:00 01:43 Supper NPO NPO Temperature 98.9 F 98.6 F 04/06/18 06:00 Supper Temperature 98.1 F Laboratory Tests 04/05/18 04/06/18 09:40 06:20 WBC 14.8 H 14.8 H Selected Entries 04/07/18 04/07/18 04/07/18 02:00 06:00 10:07 Lunch NPO Temperature 99.5 F 98.1 F Laboratory Tests 04/06/18 04/07/18 06:20 05:50 WBC 14.8 H 17.6 H WBC noted. NGT in place. Vocal quality improving,still weak and dysphonic. Likely edema, improving, s/p prolonged intubation. Swallow continues to be weak with reduced laryngeal excursion, slow elevation and depression, but improving. Oral mucosa is dry, suspect sec to mouth breathing. Oral care provided by nursing. Cont NPO/NGT feedings. MBS hopefully tomorrow?
--- NOTE | 2018-04-07 10:41 | PN ---
Physical Exam: SUBJECTIVE: Patient seen and examined at bedside. Morataya was changed yesterday and now is voiding clear yellow urine. Denies any complaints at this time. No acute events overnight. OBJECTIVE: Vital Signs Period Temp Pulse Resp BP Sys/Santacruz Pulse Ox Last 24 Hr 97.7 F-99.5 F 76-95 18-20 144-174/59-75 91-93 GENERAL: NAD AAOx3 pleasant HEAD: NC/AT EYES: EOMI PERRLA ENT: NG Tube in place NECK: Trachea midline, full range of motion, supple. LUNGS: Crackles at bases HEART: RRR No MRG S1S2 ABDOMEN: Soft NDNT No HSM EXTREMITIES: No CCE NEUROLOGICAL: Cranial nerves II through XII grossly intact. Normal speech, gait not observed. G.U: [place] in place voiding yellow clear urine. Erythematous rash inner thighs. PSYCH: Normal mood, normal affect. SKIN: Warm, dry, normal turgor, no rashes or lesions noted Laboratory Results - last 24 hr 04/06/18 04/06/18 04/06/18 11:16 16:31 21:26 WBC RBC Hgb Hct MCV MCH MCHC RDW Plt Count MPV Sodium Potassium Chloride Carbon Dioxide Anion Gap BUN Creatinine Creat Clearance w eGFR POC Glucometer 226 333 277 Random Glucose Calcium Phosphorus Magnesium 04/07/18 04/07/18 04/07/18 05:50 05:50 05:54 WBC 17.6 H RBC 4.31 Hgb 11.0 L Hct 34.0 L MCV 78.9 L MCH 25.5 L MCHC 32.3 RDW 14.6 Plt Count 439 H MPV 9.4 Sodium 145 Potassium 2.9 L* Chloride 103 Carbon Dioxide 33 H Anion Gap 9 BUN 28 H Creatinine 1.0 Creat Clearance w eGFR > 60 POC Glucometer 296 Random Glucose 299 H Calcium 8.4 L Phosphorus 3.3 Magnesium 2.2 Active Medications Generic Name Dose Route Start Last Admin Trade Name Freq PRN Reason Stop Dose Admin Acetaminophen 650 mg 04/05/18 20:39 04/05/18 22:13 Tylenol - PO 650 mg Q6H PRN Administration PAIN LEVEL 4 - 6 Amino Acids 30 ml 04/06/18 08:00 04/06/18 16:49 Prosource No Carb Liquid Pkt PO 30 ml BID@0800,1730 [facility] Administration Amlodipine Besylate 5 mg 04/06/18 10:00 04/06/18 09:01 Norvasc - PO 5 mg DAILY [facility] Administration Atorvastatin Calcium 10 mg 04/05/18 22:00 04/06/18 21:30 Lipitor - PO 10 mg HS [facility] Administration Enoxaparin Sodium 90 mg 04/06/18 22:00 04/06/18 21:41 Lovenox - SQ 90 mg BID [facility] Administration Furosemide 40 mg 04/06/18 10:00 04/06/18 09:54 Lasix Injection - IVPUSH 40 mg DAILY [facility] Administration Levofloxacin 750 mg in 150 mls @ 100 mls/hr 04/06/18 10:00 04/06/18 09:54 Levaquin 750 Mg Premixed Ivpb - IVPB 100 mls/hr DAILY [facility] Administration Protocol Vancomycin HCl 1,000 mg in 250 mls @ 166.667 mls/hr 04/06/18 03:30 04/07/18 04:21 Vancomycin (Pre-Docked) IVPB 166.667 mls/hr Q12H [facility] Administration Protocol Potassium Chloride 10 meq in 100 mls @ 100 mls/hr 04/07/18 10:30 Potassium Chloride 10 Meq Premix Ivpb - IVPB 04/07/18 13:29 Q60M [facility] Insulin Aspart 1 vial 04/05/18 22:00 04/07/18 05:59 Novolog Vial Sliding Scale - SQ 6 units ACHS [facility] Administration Protocol Insulin Detemir 24 units 04/05/18 22:00 04/07/18 05:59 Levemir Vial SQ 24 unit BID@0700,2200 [facility] Administration Lactobacillus Acidophilus 1 tab 04/06/18 10:00 04/06/18 09:00 Bacid - PO 1 tab DAILY [facility] Administration Lisinopril 10 mg 04/06/18 10:00 04/06/18 09:01 Prinivil PO 10 mg DAILY [facility] Administration Metoprolol Tartrate 5 mg 04/05/18 20:39 Lopressor Injection - IVPUSH Q4H PRN HYPERTENSION Metoprolol Tartrate 50 mg 04/06/18 22:00 04/06/18 21:30 Lopressor - PO 50 mg BID [facility] Administration Pantoprazole Sodium 40 mg 04/05/18 22:00 04/06/18 21:29 Protonix Iv IVPUSH 40 mg BID [facility] Administration Zinc Oxide/Panthenol/Vitamin E 1 applic 04/05/18 20:39 Balmex Cream - TP ASDIR PRN HYGEINE ASSESSMENT/PLAN: Patient is a 62 year old male with history of DM, HTN, HLD presented with complaint of shortness of breath past five days. # Sepsis secondary to Pneumonia/Legionella Pneumonia -Extubated 04/04/18 -Chest xray 04/06/18--> Congestive and infiltrative changes seen with prominent mediastinum -Patient received Vancomycin and Zosyn in ED -Now on Levaquin and Vanco. -Lactic acidosis resolved -Infectious disease Dr Rosenbaum on board -Urine/Blood cultures negative -Central line removed 03/29/18 -R Calf abscess Wound culture + for MRSA -Urine Culture + for Strep Agalactiae Group B -For Modified Barium Swallow tomorrow 04/07/18. #Urinary Retention/ Phimosis -Changed [place] Catheter 04/07/18 as it was not draining per nurse. -Bladder scanned and showed 900cc in bladder, morataya was replaced with a new 16 fr morataya by myself, 900cc output, bladder re-scanned with 0cc residual in bladder. -Genital examination shows phimosis and inability to retract foreskin. -Urology Consult- Spoke with Dr Dial. Will f/u as outpatient for possible elective circumcision. # Acute respiratory failure -Likely secondary to the pneumonia -Extubated -Continue oxygen to maintain saturation >90% # Afib -Patient denies history of Afib, or any cardiac history in past. -CHADsVASC score of 2 -Lovenox 90 bid -Cardiac monitoring -Cardiology on board -Lopressor 50 mg po BID # Hypertension Lisinopril 10 mg po daily #IDDM -Levemir 24 U SQ BID -A1c 11.5% # FEN -No Fluids -Monitor Electrolytes -NG Feeds. MBS tomorrow # Prophylaxis -Lovenox 90 bid # Disposition -med surg Visit type - Emergency Visit Emergency Visit: Yes ED Registration Date: 03/25/18 Care time: The patient presented to the Emergency Department on the above date and was hospitalized for further evaluation of their emergent condition. - New Patient This patient is new to me today: No - Critical Care Critical Care patient: No - Discharge Referral Referred to [facility] Med P.C.: No
[2018-04-07] MEDS: LACTOBACILLUS ACIDOPHILUS 1 TABLET PO SCH (11:52)
[2018-04-07] MEDS: AMINO ACIDS/PROTEIN HYDROLYS 30 ML LIQUID.PKT PO SCH ×2 (11:52→16:55)
[2018-04-07] MEDS: METOPROLOL TARTRATE 50 MG TABLET (FP) PO SCH ×2 (11:53→22:25)
[2018-04-07] MEDS: ENOXAPARIN NA (PORCINE) 100 MG/1 ML DISP.SYRIN SQ SCH ×2 (11:54→22:24)
[2018-04-07] MEDS: amLODIPine BESYLATE 5 MG TABLET (FP) PO SCH (11:54)
[2018-04-07] MEDS: LISINOPRIL 10 MG TABLET (FP) PO SCH (11:55)
[2018-04-07] MEDS: KCL 10 MEQ IVPB 10 MEQ/100 ML INFUS.BAG IVPB SCH ×3 (11:56→15:05)
[2018-04-07] MEDS: PANTOPRAZOLE SODIUM 40 MG VIAL IVPUSH SCH ×2 (11:56→22:25)
[2018-04-07] MEDS: FUROSEMIDE 40 MG/4 ML INJECTABLE VIAL IVPUSH SCH (11:57)
--- NOTE | 2018-04-07 13:25 | PN ---
Teaching Attending Note Name of Resident: Joe Larkin ATTENDING PHYSICIAN STATEMENT I saw and evaluated the patient. I reviewed the resident's note and discussed the case with the resident. I agree with the resident's findings and plan as documented. SUBJECTIVE: Patient is awake and alert. He denies pain. Yesterday, he had urinary retention with Tracy in place. Tracy was changed with good results. OBJECTIVE: Vital Signs Period Temp Pulse Resp BP Sys/Santacruz Pulse Ox Last 24 Hr 97.7 F-99.5 F 76-95 18-20 144-174/59-75 91-93 HEART: S1S2, RRR LUNGS: Clear ABDOMEN: Soft, non-tender, non-distended, normal BS EXTREMITIES: No edema Laboratory Results - last 24 hr 04/06/18 04/06/18 04/07/18 16:31 21:26 05:50 WBC RBC Hgb Hct MCV MCH MCHC RDW Plt Count MPV Sodium 145 Potassium 2.9 L* Chloride 103 Carbon Dioxide 33 H Anion Gap 9 BUN 28 H Creatinine 1.0 Creat Clearance w eGFR > 60 POC Glucometer 333 277 Random Glucose 299 H Calcium 8.4 L Phosphorus 3.3 Magnesium 2.2 04/07/18 04/07/18 04/07/18 05:50 05:54 11:36 WBC 17.6 H RBC 4.31 Hgb 11.0 L Hct 34.0 L MCV 78.9 L MCH 25.5 L MCHC 32.3 RDW 14.6 Plt Count 439 H MPV 9.4 Sodium Potassium Chloride Carbon Dioxide Anion Gap BUN Creatinine Creat Clearance w eGFR POC Glucometer 296 174 Random Glucose Calcium Phosphorus Magnesium Current Medications Generic Name Dose Route Start Last Admin Trade Name Freq PRN Reason Stop Dose Admin Acetaminophen 650 mg 04/05/18 20:39 04/05/18 22:13 Tylenol - PO 650 mg Q6H PRN Administration PAIN LEVEL 4 - 6 Amino Acids 30 ml 04/06/18 08:00 04/07/18 11:52 Prosource No Carb Liquid Pkt PO 30 ml BID@0800,1730 [facility] Administration Amlodipine Besylate 5 mg 04/06/18 10:00 04/07/18 11:54 Norvasc - PO 5 mg DAILY [facility] Administration Atorvastatin Calcium 10 mg 04/05/18 22:00 04/06/18 21:30 Lipitor - PO 10 mg HS [facility] Administration Enoxaparin Sodium 90 mg 04/06/18 22:00 04/07/18 11:54 Lovenox - SQ 90 mg BID [facility] Administration Levofloxacin 750 mg in 150 mls @ 100 mls/hr 04/06/18 10:00 04/07/18 11:53 Levaquin 750 Mg Premixed Ivpb - IVPB 100 mls/hr DAILY [facility] Administration Protocol Vancomycin HCl 1,000 mg in 250 mls @ 166.667 mls/hr 04/06/18 03:30 04/07/18 04:21 Vancomycin (Pre-Docked) IVPB 166.667 mls/hr Q12H [facility] Administration Protocol Potassium Chloride 10 meq in 100 mls @ 100 mls/hr 04/07/18 10:30 04/07/18 11: 56 Potassium Chloride 10 Meq Premix Ivpb - IVPB 04/07/18 13:29 100 mls/hr Q60M [facility] Administration Insulin Aspart 1 vial 04/05/18 22:00 04/07/18 12:08 Novolog Vial Sliding Scale - SQ 2 units ACHS [facility] Administration Protocol Insulin Detemir 24 units 04/05/18 22:00 04/07/18 05:59 Levemir Vial SQ 24 unit BID@0700,2200 [facility] Administration Lactobacillus Acidophilus 1 tab 04/06/18 10:00 04/07/18 11:52 Bacid - PO 1 tab DAILY [facility] Administration Lisinopril 10 mg 04/06/18 10:00 04/07/18 11:55 Prinivil PO 10 mg DAILY [facility] Administration Metoprolol Tartrate 5 mg 04/05/18 20:39 Lopressor Injection - IVPUSH Q4H PRN HYPERTENSION Metoprolol Tartrate 50 mg 04/06/18 22:00 04/07/18 11:53 Lopressor - PO 50 mg BID [facility] Administration Pantoprazole Sodium 40 mg 04/05/18 22:00 04/07/18 11:56 Protonix Iv IVPUSH 40 mg BID [facility] Administration Zinc Oxide/Panthenol/Vitamin E 1 applic 04/05/18 20:39 Balmex Cream - TP ASDIR PRN HYGEINE ASSESSMENT AND PLAN: This is a 62 year old man with a history of type 2 DM, HTN, hyperlipidemia who presented to the ED with SOB. 1. Acute hypoxic respiratory failure secondary to sepsis from multilobar Legionella pneumonia - Extubated 04/05 - Continue oxygen to maintain saturation >90% - Continue Levaquin (day 13) 2. MRSA RLE skin abscess - s/p I&D - Continue Vancomycin (day 13) 3. Dysphagia - Continue NGT feeds - Will need modified barium swallow 4. Atrial fibrillation with RVR - Remains in SR - Continue Lopressor, Lovenox 5. Prolonged QTc - Resolved 6. Type 2 DM, uncontrolled - HbA1c 11.5 - Continue Levemir, Novolog sliding scale - Change NGT feeds to Glucerna 7. Acute kidney injury secondary to hypoperfusion - Resolved 8. HTN - Continue Lisinopril, Lopressor 9. Hyperlipidemia 10. Hypokalemia - Replete potassium 11. Urinary retention - Improved with Tracy change 12. Nutrition - Continue NG tube feeds, Prosource
--- NOTE | 2018-04-07 13:38 | PN ---
Progress Note, Physician History of Present Illness: pulmonary alert,no distress,-sob - Current Medication List Current Medications: Active Medications Acetaminophen (Tylenol -) 650 mg PO Q6H PRN PRN Reason: PAIN LEVEL 4 - 6 Last Admin: 04/05/18 22:13 Dose: 650 mg Amino Acids (Prosource No Carb Liquid Pkt) 30 ml PO BID@0800,1730 [facility] Last Admin: 04/07/18 11:52 Dose: 30 ml Amlodipine Besylate (Norvasc -) 5 mg PO DAILY [facility] Last Admin: 04/07/18 11:54 Dose: 5 mg Atorvastatin Calcium (Lipitor -) 10 mg PO HS [facility] Last Admin: 04/06/18 21:30 Dose: 10 mg Enoxaparin Sodium (Lovenox -) 90 mg SQ BID [facility] Last Admin: 04/07/18 11:54 Dose: 90 mg Levofloxacin (Levaquin 750 Mg Premixed Ivpb -) 750 mg in 150 mls @ 100 mls/hr IVPB DAILY [facility]; Protocol Last Admin: 04/07/18 11:53 Dose: 100 mls/hr Vancomycin HCl (Vancomycin (Pre-Docked)) 1,000 mg in 250 mls @ 166.667 mls/hr IVPB Q12H [facility]; Protocol Last Admin: 04/07/18 04:21 Dose: 166.667 mls/hr Insulin Aspart (Novolog Vial Sliding Scale -) 1 vial SQ ACHS [facility]; Protocol Last Admin: 04/07/18 12:08 Dose: 2 units Insulin Detemir (Levemir Vial) 24 units SQ BID@0700,2200 [facility] Last Admin: 04/07/18 05:59 Dose: 24 unit Lactobacillus Acidophilus (Bacid -) 1 tab PO DAILY [facility] Last Admin: 04/07/18 11:52 Dose: 1 tab Lisinopril (Prinivil) 10 mg PO DAILY [facility] Last Admin: 04/07/18 11:55 Dose: 10 mg Metoprolol Tartrate (Lopressor Injection -) 5 mg IVPUSH Q4H PRN PRN Reason: HYPERTENSION Metoprolol Tartrate (Lopressor -) 50 mg PO BID [facility] Last Admin: 04/07/18 11:53 Dose: 50 mg Pantoprazole Sodium (Protonix Iv) 40 mg IVPUSH BID [facility] Last Admin: 04/07/18 11:56 Dose: 40 mg Zinc Oxide/Panthenol/Vitamin E (Balmex Cream -) 1 applic TP ASDIR PRN PRN Reason: HYGEINE - Objective Vital Signs: Vital Signs Temperature 98.5 F 04/07/18 10:00 Pulse Rate 82 04/07/18 10:00 Respiratory Rate 20 04/07/18 10:00 Blood Pressure 148/60 04/07/18 10:00 O2 Sat by Pulse Oximetry (%) 93 L 04/07/18 10:00 Constitutional: Yes: Well Nourished, Calm Eyes: Yes: WNL HENT: Yes: WNL Neck: Yes: WNL Cardiovascular: Yes: Pulse Irregular, S1, S2 Respiratory: Yes: Diminished Gastrointestinal: Yes: Normal Bowel Sounds, Soft Extremities: Yes: WNL Edema: No Labs: CBC, BMP 04/07/18 05:50 04/07/18 05:50 INR, PTT INR 1.51 (0.83-1.09) H 03/26/18 05:13 Problem List - Problems (1) SONIDO (acute kidney injury) Code(s): N17.9 - ACUTE KIDNEY FAILURE, UNSPECIFIED (2) Acute respiratory failure with hypoxia Code(s): J96.01 - ACUTE RESPIRATORY FAILURE WITH HYPOXIA (3) Fever Code(s): R50.9 - FEVER, UNSPECIFIED Qualifiers: Fever type: unspecified Qualified Code(s): R50.9 - Fever, unspecified (4) Legionella pneumonia Code(s): A48.1 - LEGIONNAIRES' DISEASE (5) Sepsis Code(s): A41.9 - SEPSIS, UNSPECIFIED ORGANISM Qualifiers: Sepsis type: sepsis due to unspecified organism Qualified Code(s): A41.9 - Sepsis, unspecified organism Assessment/Plan ASSESSMENT AND PLAN: Acute Hypoxic Respiratory Failure improved Legionella Pneumonia Severe Sepsis Acute Kidney Injury improving Lactic Acidosis ARDS Atrial Fibrillation with RVR HTN DM - antibiotics - rate control - anticoagulation - monitor urine output, creatinine - Supplemental O2 to maintain saturation - inhaled bronchodilators - PO as tolerated - DVT/GI prophylaxis - replete k - swallowing dane BOWERS
[2018-04-07] MEDS: ACETAMINOPHEN 325 MG TABLET (FP) PO PRN (16:39)
[2018-04-07] MEDS: ATORVASTATIN CA 10 MG TABLET (FP) PO SCH (22:25)
[2018-04-08] MEDS: PIPERACILLIN/TAZOB 4.5 GM 4.5 GM in DEXTROSE 5%-WATER 100 ML IVPB SCH ×2 (02:00→21:20)
[2018-04-08] MEDS: VANCOMYCIN 1 GRAM (PRE-DOCKED) 1,000 MG/250 ML BAG IVPB SCH ×2 (03:13→15:52)
[2018-04-08] MEDS: INSULIN (LEVEMIR) 100 UNITS/ML UNITS SQ SCH ×2 (06:14→21:20)
[2018-04-08] MEDS: INSULIN SLIDING SCALE (NOVOLOG) 1 VIAL SQ SCH ×4 (06:15→21:19)
[2018-04-08 06:54] LABS: HEMATOCRIT 33.7 % (35.4-49); MCH 25.6 pg (25.7-33.7); MCHC 32.8 g/dl (32.0-35.9); MEAN CELL VOLUME 78.2 fl (80-96); MEAN PLT VOLUME 8.8 fl (7.5-11.1); PLATELET COUNT 400 K/MM3 (134-434); RBC 4.31 M/mm3 (4.00-5.60); RDW 14.6 % (11.9-15.9); WHITE BLOOD COUNT 19.3 K/mm3 (4.0-10.0)
[2018-04-08 07:35] LABS: ANION GAP 9 MMOL/L (8-16); BLOOD UREA NITROGEN 25 mg/dL (7-18); CHLORIDE 107 mmol/L (98-107); CO2 33 mmol/L (21-32); CREATININE 0.8 mg/dL (0.55-1.3); GLUCOSE,RANDOM 125 mg/dL (74-106); MAGNESIUM 2.3 mg/dL (1.8-2.4); PHOSPHOROUS 3.4 mg/dL (2.5-4.9); SODIUM 150 mmol/L (136-145)
[2018-04-08 07:39] LABS: POTASSIUM 2.8 mmol/L (3.5-5.1)
[2018-04-08] MEDS ORDERED: KCL 10 MEQ IVPB 10 MEQ/100 ML INFUS.BAG IVPB SCH (09:00)
[2018-04-08] MEDS ORDERED: PIPERACILLIN/TAZOBACTAM 3.375 GM VIAL IVPB ONE ×2 (09:28→14:54)
[2018-04-08] MEDS ORDERED: DEXTROSE 5%-WATER - 50 ML IVPB ONE ×2 (09:28→14:54)
[2018-04-08] MEDS ORDERED: POTASSIUM CHLORIDE ORAL LIQUID 20 MEQ/15 ML PO ONE (09:30)
[2018-04-08] MEDS: AMINO ACIDS/PROTEIN HYDROLYS 30 ML LIQUID.PKT PO SCH ×2 (09:38→18:02)
[2018-04-08] MEDS: PANTOPRAZOLE SODIUM 40 MG VIAL IVPUSH SCH ×2 (09:40→21:17)
[2018-04-08] MEDS: LISINOPRIL 10 MG TABLET (FP) PO SCH (09:41)
[2018-04-08] MEDS: METOPROLOL TARTRATE 50 MG TABLET (FP) PO SCH ×2 (09:41→21:17)
[2018-04-08] MEDS: LACTOBACILLUS ACIDOPHILUS 1 TABLET PO SCH (09:41)
[2018-04-08] MEDS: amLODIPine BESYLATE 5 MG TABLET (FP) PO SCH (09:41)
[2018-04-08] MEDS: ENOXAPARIN NA (PORCINE) 100 MG/1 ML DISP.SYRIN SQ SCH ×2 (09:42→21:17)
[2018-04-08] MEDS: KCL 10 MEQ IVPB 10 MEQ/100 ML INFUS.BAG IVPB SCH ×3 (09:42→12:09)
[2018-04-08] MEDS ORDERED: PIPERACILLIN/TAZOB 3.375 GM 3.375 GM in DEXTROSE 5%-WATER - 50 ML IVPB ONE (10:00)
--- NOTE | 2018-04-08 10:19 | PN ---
Progress Note (short form) - Note Progress Note: Chief Complaint: resp failure History of Present Illness: awake, confused, appears comfortable Current Medications Generic Name Dose Route Start Last Admin Trade Name Pollo PRN Reason Stop Dose Admin Acetaminophen 650 mg 04/05/18 20:39 04/07/18 16:39 Tylenol - PO 650 mg Q6H PRN Administration PAIN LEVEL 4 - 6 Amino Acids 30 ml 04/06/18 08:00 04/08/18 09:38 Prosource No Carb Liquid Pkt PO 30 ml BID@0800,1730 [facility] Administration Amlodipine Besylate 5 mg 04/06/18 10:00 04/08/18 09:41 Norvasc - PO 5 mg DAILY [facility] Administration Atorvastatin Calcium 10 mg 04/05/18 22:00 04/07/18 22:25 Lipitor - PO 10 mg HS [facility] Administration Enoxaparin Sodium 90 mg 04/06/18 22:00 04/08/18 09:42 Lovenox - SQ 90 mg BID [facility] Administration Levofloxacin 750 mg in 150 mls @ 100 mls/hr 04/06/18 10:00 04/07/18 11:53 Levaquin 750 Mg Premixed Ivpb - IVPB 100 mls/hr DAILY [facility] Administration Protocol Vancomycin HCl 1,000 mg in 250 mls @ 166.667 mls/hr 04/06/18 03:30 04/08/18 03:13 Vancomycin (Pre-Docked) IVPB 166.667 mls/hr Q12H [facility] Administration Protocol Piperacillin Sod/Tazobactam 50 mls @ 100 mls/hr 04/08/18 10:00 04/08/18 09:41 Sod 3.375 gm/ Dextrose IVPB 04/08/18 10:29 100 mls/hr ONCE ONE Administration Protocol Potassium Chloride 10 meq in 100 mls @ 100 mls/hr 04/08/18 09:15 04/08/18 09: 42 Potassium Chloride 10 Meq Premix Ivpb - IVPB 04/08/18 12:14 100 mls/hr Q60M [facility] Administration Insulin Aspart 1 vial 04/05/18 22:00 04/08/18 06:15 Novolog Vial Sliding Scale - SQ Not Given ACHS [facility] Protocol Insulin Detemir 24 units 04/05/18 22:00 04/08/18 06:14 Levemir Vial SQ 24 unit BID@0700,2200 [facility] Administration Lactobacillus Acidophilus 1 tab 04/06/18 10:00 04/08/18 09:41 Bacid - PO 1 tab DAILY [facility] Administration Lisinopril 10 mg 04/06/18 10:00 04/08/18 09:41 Prinivil PO 10 mg DAILY [facility] Administration Metoprolol Tartrate 5 mg 04/05/18 20:39 Lopressor Injection - IVPUSH Q4H PRN HYPERTENSION Metoprolol Tartrate 50 mg 04/06/18 22:00 04/08/18 09:41 Lopressor - PO 50 mg BID [facility] Administration Pantoprazole Sodium 40 mg 04/05/18 22:00 04/08/18 09:40 Protonix Iv IVPUSH 40 mg BID [facility] Administration Zinc Oxide/Panthenol/Vitamin E 1 applic 04/05/18 20:39 Balmex Cream - TP ASDIR PRN HYGEINE - Objective Vital Signs: Vital Signs Period Temp Pulse Resp BP Sys/Santacruz Pulse Ox Last 24 Hr 97.4 F-101.7 F 74-89 16-20 156-176/71-83 91-91 Constitutional: Yes: No Distress, Calm Cardiovascular: Yes: Regular Rate and Rhythm, S1, S2, . No: Gallop, Murmur Respiratory: Yes: +rhonchi. No: Accessory Muscle Use Gastrointestinal: Yes: Normal Bowel Sounds, Soft. No: Tenderness Extremities: No: Cold Edema: No Integumentary: No: Jaundice diaphoresis Neurological:awake, confused Psychiatric: No: Agitated CBC, BMP 04/08/18 06:00 04/08/18 06:00 ct chest: b/l pna ecg: afib vr 154, no ischemic changes, nl qtc ecg 03/30 sinus, QTc 403 (stable) echo 03/18: nl LVSF. nl RV. nl LA. mild MR/TR. RVSP 30-40 tele: sinus, 5 beats nsvt a/p: 62 m hx dm, hld, htn here with fever, leg wound. sepsis, PNA, acute resp failure: - has sahu abscess as well as b/l pna - was intubated, now extubated and transferred to floor, bp stable - receiving intermittent IV lasix, likely third spacing related to IVF - lung exam improving - monitor Cr, daily standing weight, I/O - cont abx per ID, primary afib, rvr: -unknown if new onset -in er started on dilt gtt and amio gtt-->sinus -cont metoprolol, inc dose to 50 mg BID -chadsvasc 2 warrants ac, on lovenox -transition to NOAC when able to take PO SONIDO: -bun/creat up 03/27, ? intravasc vol depletion in setting of DKA -improved with IVF htn: -cont bb, norvasc, ACEI, uptitrate meds as tolerated
--- NOTE | 2018-04-08 10:37 | PN ---
Physical Exam: SUBJECTIVE: Patient seen and examined at bedside this AM. Found to have an episode of V Tach this am. Also found to be tachypneic at 28 BPM. EKG and Chest Xray ordered. OBJECTIVE: Vital Signs Period Temp Pulse Resp BP Sys/Santacruz Pulse Ox Last 24 Hr 97.4 F-101.7 F 74-89 16-20 156-176/71-83 91-91 GENERAL: Tachypneic, Awake Alert HEAD: NC/AT. EYES: EOMI, PERRLA NECK: Trachea midline, full range of motion, supple. LUNGS: Crackles b/l lower lung fregoso, scattered rhonchi HEART: RRR ABDOMEN:NDNT, No HSM BS + EXTREMITIES: No CCE PSYCH: Normal mood, normal affect. SKIN: Warm, dry, normal turgor, no rashes or lesions noted Laboratory Results - last 24 hr 04/07/18 04/07/18 04/07/18 11:36 16:38 17:30 WBC RBC Hgb Hct MCV MCH MCHC RDW Plt Count MPV Sodium Potassium Chloride Carbon Dioxide Anion Gap BUN Creatinine Creat Clearance w eGFR POC Glucometer 174 184 Random Glucose Lactic Acid 0.8 Calcium Phosphorus Magnesium 04/07/18 04/08/18 04/08/18 22:24 05:42 06:00 WBC 19.3 H RBC 4.31 Hgb 11.0 L Hct 33.7 L MCV 78.2 L MCH 25.6 L MCHC 32.8 RDW 14.6 Plt Count 400 MPV 8.8 Sodium Potassium Chloride Carbon Dioxide Anion Gap BUN Creatinine Creat Clearance w eGFR POC Glucometer 188 135 Random Glucose Lactic Acid Calcium Phosphorus Magnesium 04/08/18 06:00 WBC RBC Hgb Hct MCV MCH MCHC RDW Plt Count MPV Sodium 150 H Potassium 2.8 L* Chloride 107 Carbon Dioxide 33 H Anion Gap 9 BUN 25 H Creatinine 0.8 Creat Clearance w eGFR > 60 POC Glucometer Random Glucose 125 H Lactic Acid Calcium 8.0 L Phosphorus 3.4 Magnesium 2.3 Active Medications Generic Name Dose Route Start Last Admin Trade Name Freq PRN Reason Stop Dose Admin Acetaminophen 650 mg 04/05/18 20:39 04/07/18 16:39 Tylenol - PO 650 mg Q6H PRN Administration PAIN LEVEL 4 - 6 Amino Acids 30 ml 04/06/18 08:00 04/08/18 09:38 Prosource No Carb Liquid Pkt PO 30 ml BID@0800,1730 [facility] Administration Amlodipine Besylate 5 mg 04/06/18 10:00 04/08/18 09:41 Norvasc - PO 5 mg DAILY [facility] Administration Atorvastatin Calcium 10 mg 04/05/18 22:00 04/07/18 22:25 Lipitor - PO 10 mg HS [facility] Administration Enoxaparin Sodium 90 mg 04/06/18 22:00 04/08/18 09:42 Lovenox - SQ 90 mg BID [facility] Administration Levofloxacin 750 mg in 150 mls @ 100 mls/hr 04/06/18 10:00 04/07/18 11:53 Levaquin 750 Mg Premixed Ivpb - IVPB 100 mls/hr DAILY [facility] Administration Protocol Vancomycin HCl 1,000 mg in 250 mls @ 166.667 mls/hr 04/06/18 03:30 04/08/18 03:13 Vancomycin (Pre-Docked) IVPB 166.667 mls/hr Q12H [facility] Administration Protocol Potassium Chloride 10 meq in 100 mls @ 100 mls/hr 04/08/18 09:15 04/08/18 09: 42 Potassium Chloride 10 Meq Premix Ivpb - IVPB 04/08/18 12:14 100 mls/hr Q60M [facility] Administration Insulin Aspart 1 vial 04/05/18 22:00 04/08/18 06:15 Novolog Vial Sliding Scale - SQ Not Given ACHS [facility] Protocol Insulin Detemir 24 units 04/05/18 22:00 04/08/18 06:14 Levemir Vial SQ 24 unit BID@0700,2200 [facility] Administration Lactobacillus Acidophilus 1 tab 04/06/18 10:00 04/08/18 09:41 Bacid - PO 1 tab DAILY [facility] Administration Lisinopril 10 mg 04/06/18 10:00 04/08/18 09:41 Prinivil PO 10 mg DAILY [facility] Administration Metoprolol Tartrate 5 mg 04/05/18 20:39 Lopressor Injection - IVPUSH Q4H PRN HYPERTENSION Metoprolol Tartrate 50 mg 04/06/18 22:00 04/08/18 09:41 Lopressor - PO 50 mg BID [facility] Administration Pantoprazole Sodium 40 mg 04/05/18 22:00 04/08/18 09:40 Protonix Iv IVPUSH 40 mg BID [facility] Administration Zinc Oxide/Panthenol/Vitamin E 1 applic 04/05/18 20:39 Balmex Cream - TP ASDIR PRN HYGEINE ASSESSMENT/PLAN: Patient is a 62 year old male with history of DM, HTN, HLD presented with complaint of shortness of breath past five days. # Sepsis secondary to Pneumonia/Legionella Pneumonia -Extubated 04/04/18 -Patient received Vancomycin and Zosyn in ED -Given 1 dose 3.375 G Zosyn this AM. Levaquin D/C'ed, Vanco continued along with Zosyn per ID- Dr Rosenbaum . -Lactic acidosis resolved -Infectious disease Dr Rosenbaum on board -Urine/Blood cultures negative -Central line removed 03/29/18 -R Calf abscess Wound culture + for MRSA -Urine Culture + for Strep Agalactiae Group B -For Modified Barium Swallow today 04/08/18. #Urinary Retention/ Phimosis -Changed [place] Catheter 04/07/18 as it was not draining per nurse. -Bladder scanned and showed 900cc in bladder, morataya was replaced with a new 16 fr morataya by myself, 900cc output, bladder re-scanned with 0cc residual in bladder. -Genital examination shows phimosis and inability to retract foreskin. -Urology Consult- Spoke with Dr Dial. Will f/u as outpatient for possible elective circumcision. # Acute respiratory failure -Likely secondary to the pneumonia -Extubated -Continue oxygen to maintain saturation >90% # Afib -Patient denies history of Afib, or any cardiac history in past. -CHADsVASC score of 2 -Lovenox 90 bid -Cardiac monitoring -Cardiology on board -Lopressor 50 mg po BID # Hypertension Lisinopril 10 mg po daily #IDDM -Levemir 24 U SQ BID -A1c 11.5% # FEN -No Fluids -Monitor Electrolytes -NG tube removed. Chopped Diabetic diet. # Prophylaxis -Lovenox 90 bid # Disposition -med surg Visit type - Emergency Visit Emergency Visit: Yes ED Registration Date: 03/25/18 Care time: The patient presented to the Emergency Department on the above date and was hospitalized for further evaluation of their emergent condition. - New Patient This patient is new to me today: No - Critical Care Critical Care patient: No - Discharge Referral Referred to [facility] Med P.C.: No
--- NOTE | 2018-04-08 11:07 | EKG ---
Test Reason : Blood Pressure : / mmHG Vent. Rate : 092 BPM Atrial Rate : 092 BPM P-R Int : 000 ms QRS Dur : 068 ms QT Int : 380 ms P-R-T Axes : 050 056 121 degrees QTc Int : 469 ms SINUS RHYTHM WITH PREMATURE ATRIAL COMPLEXES WITH ABERRANT CONDUCTION PROLONGED QT ABNORMAL ECG WHEN COMPARED WITH ECG OF 06-APR-2018 10:28, ABERRANT CONDUCTION IS NOW PRESENT NON-SPECIFIC CHANGE IN ST SEGMENT IN ANTERIOR LEADS Confirmed by WALDO RENNER MD ([id number]) on 04/08/2018 11:07:15 AM Referred By: JENNIFER CLINTON DR Confirmed By:WALDO RENNER MD
--- NOTE | 2018-04-08 12:00 | PN ---
Teaching Attending Note Name of Resident: Joe Larkin ATTENDING PHYSICIAN STATEMENT I saw and evaluated the patient. I reviewed the resident's note and discussed the case with the resident. I agree with the resident's findings and plan as documented. SUBJECTIVE: Patient had temp 101.7 yesterday evening. Lactic acid was 0.8. Urine and blood cultures sent. CXR showed increasing infiltrates. He is requiring increased oxygen. Also had one run of NSVT on telemetry. OBJECTIVE: Vital Signs Period Temp Pulse Resp BP Sys/Santacruz Pulse Ox Last 24 Hr 97.4 F-101.7 F 74-89 16-20 156-176/71-83 91-91 HEART: S1S2, RRR LUNGS: Bilateral crackles ABDOMEN: Soft, non-tender, non-distended, normal BS EXTREMITIES: No edema Laboratory Results - last 24 hr 04/07/18 04/07/18 04/07/18 11:36 16:38 17:30 WBC RBC Hgb Hct MCV MCH MCHC RDW Plt Count MPV Sodium Potassium Chloride Carbon Dioxide Anion Gap BUN Creatinine Creat Clearance w eGFR POC Glucometer 174 184 Random Glucose Lactic Acid 0.8 Calcium Phosphorus Magnesium 04/07/18 04/08/18 04/08/18 22:24 05:42 06:00 WBC 19.3 H RBC 4.31 Hgb 11.0 L Hct 33.7 L MCV 78.2 L MCH 25.6 L MCHC 32.8 RDW 14.6 Plt Count 400 MPV 8.8 Sodium Potassium Chloride Carbon Dioxide Anion Gap BUN Creatinine Creat Clearance w eGFR POC Glucometer 188 135 Random Glucose Lactic Acid Calcium Phosphorus Magnesium 04/08/18 04/08/18 06:00 11:21 WBC RBC Hgb Hct MCV MCH MCHC RDW Plt Count MPV Sodium 150 H Potassium 2.8 L* Chloride 107 Carbon Dioxide 33 H Anion Gap 9 BUN 25 H Creatinine 0.8 Creat Clearance w eGFR > 60 POC Glucometer 115 Random Glucose 125 H Lactic Acid Calcium 8.0 L Phosphorus 3.4 Magnesium 2.3 Current Medications Generic Name Dose Route Start Last Admin Trade Name Freq PRN Reason Stop Dose Admin Acetaminophen 650 mg 04/05/18 20:39 04/07/18 16:39 Tylenol - PO 650 mg Q6H PRN Administration PAIN LEVEL 4 - 6 Amino Acids 30 ml 04/06/18 08:00 04/08/18 09:38 Prosource No Carb Liquid Pkt PO 30 ml BID@0800,1730 [facility] Administration Amlodipine Besylate 5 mg 04/06/18 10:00 04/08/18 09:41 Norvasc - PO 5 mg DAILY [facility] Administration Atorvastatin Calcium 10 mg 04/05/18 22:00 04/07/18 22:25 Lipitor - PO 10 mg HS [facility] Administration Enoxaparin Sodium 90 mg 04/06/18 22:00 04/08/18 09:42 Lovenox - SQ 90 mg BID [facility] Administration Levofloxacin 750 mg in 150 mls @ 100 mls/hr 04/06/18 10:00 04/08/18 10:52 Levaquin 750 Mg Premixed Ivpb - IVPB 100 mls/hr DAILY [facility] Administration Protocol Vancomycin HCl 1,000 mg in 250 mls @ 166.667 mls/hr 04/06/18 03:30 04/08/18 03:13 Vancomycin (Pre-Docked) IVPB 166.667 mls/hr Q12H [facility] Administration Protocol Potassium Chloride 10 meq in 100 mls @ 100 mls/hr 04/08/18 09:15 04/08/18 10: 52 Potassium Chloride 10 Meq Premix Ivpb - IVPB 04/08/18 12:14 100 mls/hr Q60M [facility] Administration Insulin Aspart 1 vial 04/05/18 22:00 04/08/18 06:15 Novolog Vial Sliding Scale - SQ Not Given ACHS [facility] Protocol Insulin Detemir 24 units 04/05/18 22:00 04/08/18 06:14 Levemir Vial SQ 24 unit BID@0700,2200 [facility] Administration Lactobacillus Acidophilus 1 tab 04/06/18 10:00 04/08/18 09:41 Bacid - PO 1 tab DAILY [facility] Administration Lisinopril 10 mg 04/06/18 10:00 04/08/18 09:41 Prinivil PO 10 mg DAILY [facility] Administration Metoprolol Tartrate 5 mg 04/05/18 20:39 Lopressor Injection - IVPUSH Q4H PRN HYPERTENSION Metoprolol Tartrate 50 mg 04/06/18 22:00 04/08/18 09:41 Lopressor - PO 50 mg BID [facility] Administration Pantoprazole Sodium 40 mg 04/05/18 22:00 04/08/18 09:40 Protonix Iv IVPUSH 40 mg BID [facility] Administration Polyethylene Glycol 17 gm 04/08/18 11:45 Miralax (For Daily Use) - PO DAILY [facility] Zinc Oxide/Panthenol/Vitamin E 1 applic 04/05/18 20:39 Balmex Cream - TP ASDIR PRN HYGEINE ASSESSMENT AND PLAN: This is a 62 year old man with a history of type 2 DM, HTN, hyperlipidemia who presented to the ED with SOB. 1. Acute hypoxic respiratory failure secondary to sepsis from multilobar Legionella pneumonia - Extubated 04/05 - Continue oxygen to maintain saturation >90% - On Levaquin (day 14) - Possible new aspiration pneumonia - Add Zosyn - ID follow up 2. MRSA RLE skin abscess - s/p I&D - On Vancomycin (day 14) 3. Dysphagia - Hold NGT feeds secondary to possible aspiration - Will need modified barium swallow 4. Atrial fibrillation with RVR - Remains in SR - Continue Lopressor, Lovenox 5. NSVT - Had prolonged QTc previously - Check EKG - Replete potassium - keep > 4.0 - Keep magnesium > 2.0 6. Type 2 DM, uncontrolled - HbA1c 11.5 - Fingersticks better - Continue Levemir, Novolog sliding scale 7. Acute kidney injury secondary to hypoperfusion - Resolved 8. HTN - Continue Lisinopril, Lopressor 9. Hyperlipidemia 10. Hypokalemia - Replete potassium 11. Hypernatremia 12. Urinary retention - Improved with Tracy change 13. Nutrition - Hold NGT feeds secondary to possible aspiration
--- NOTE | 2018-04-08 12:14 | PN ---
Progress Note, [facility] [employer]SEL [employer]PER[employer] - Note Progress Note: Selected Entries 04/08/18 04/08/18 04/08/18 02:00 05:46 09:06 Breakfast NPO Temperature 97.4 F L 98.1 F Laboratory Tests 04/06/18 04/07/18 04/08/18 06:20 05:50 06:00 WBC 14.8 H 17.6 H 19.3 H CXR noted. NGT feeding held, per nursing. U/A stat ordered. Suctioned thick phlegm from posterior pharynx. Trial MBS -d/c NGT for study. mouth care.
--- NOTE | 2018-04-08 14:20 | PN ---
Progress Note (short form) - Note Progress Note: Mildly tachypneic at rest on 5 L NC O2. Noted new fever and increased infiltrates on CXR 04/07. Intake & Output 04/05/18 04/06/18 04/07/18 04/08/18 23:59 23:59 23:59 23:59 Intake Total 1965 1150 1480 Output Total 3565 867 7487 500 Balance 365 350 -320 -500 Weight 186 lb 5 oz Last Vital Signs Temp Pulse Resp BP Pulse Ox 98.2 F 82 22 H 152/68 91 L 04/08/18 10:00 04/08/18 10:00 04/08/18 10:00 04/08/18 10:00 04/08/18 10:00 Active Medications Acetaminophen (Tylenol -) 650 mg PO Q6H PRN PRN Reason: PAIN LEVEL 4 - 6 Last Admin: 04/07/18 16:39 Dose: 650 mg Amino Acids (Prosource No Carb Liquid Pkt) 30 ml PO BID@0800,1730 [facility] Last Admin: 04/08/18 09:38 Dose: 30 ml Amlodipine Besylate (Norvasc -) 5 mg PO DAILY [facility] Last Admin: 04/08/18 09:41 Dose: 5 mg Atorvastatin Calcium (Lipitor -) 10 mg PO HS [facility] Last Admin: 04/07/18 22:25 Dose: 10 mg Enoxaparin Sodium (Lovenox -) 90 mg SQ BID [facility] Last Admin: 04/08/18 09:42 Dose: 90 mg Vancomycin HCl (Vancomycin (Pre-Docked)) 1,000 mg in 250 mls @ 166.667 mls/hr IVPB Q12H [facility]; Protocol Last Admin: 04/08/18 03:13 Dose: 166.667 mls/hr Piperacillin Sod/Tazobactam (Sod 3.375 gm/ Dextrose) 50 mls @ 100 mls/hr IVPB Q6H-IV [facility]; Protocol Insulin Aspart (Novolog Vial Sliding Scale -) 1 vial SQ ACHS [facility]; Protocol Last Admin: 04/08/18 12:46 Dose: Not Given Insulin Detemir (Levemir Vial) 24 units SQ BID@0700,2200 [facility] Last Admin: 04/08/18 06:14 Dose: 24 unit Lactobacillus Acidophilus (Bacid -) 1 tab PO DAILY [facility] Last Admin: 04/08/18 09:41 Dose: 1 tab Lisinopril (Prinivil) 10 mg PO DAILY [facility] Last Admin: 04/08/18 09:41 Dose: 10 mg Metoprolol Tartrate (Lopressor Injection -) 5 mg IVPUSH Q4H PRN PRN Reason: HYPERTENSION Metoprolol Tartrate (Lopressor -) 50 mg PO BID [facility] Last Admin: 04/08/18 09:41 Dose: 50 mg Pantoprazole Sodium (Protonix Iv) 40 mg IVPUSH BID [facility] Last Admin: 04/08/18 09:40 Dose: 40 mg Polyethylene Glycol (Miralax (For Daily Use) -) 17 gm PO DAILY [facility] Zinc Oxide/Panthenol/Vitamin E (Balmex Cream -) 1 applic TP ASDIR PRN PRN Reason: HYGEINE Constitutional: Yes: Mildly tachypneic at rest Eyes: Yes: WNL HENT: Yes: WNL Neck: Yes: WNL Cardiovascular: Yes: Pulse Irregular, S1, S2 Respiratory: Yes: Coarse rhonchi Gastrointestinal: Yes: Normal Bowel Sounds, Soft Extremities: Yes: WNL Edema: No Labs: Laboratory Results - last 24 hr 04/07/18 04/07/18 04/07/18 16:38 17:30 22:24 WBC RBC Hgb Hct MCV MCH MCHC RDW Plt Count MPV Sodium Potassium Chloride Carbon Dioxide Anion Gap BUN Creatinine Creat Clearance w eGFR POC Glucometer 184 188 Random Glucose Lactic Acid 0.8 Calcium Phosphorus Magnesium 04/08/18 04/08/18 04/08/18 05:42 06:00 06:00 WBC 19.3 H RBC 4.31 Hgb 11.0 L Hct 33.7 L MCV 78.2 L MCH 25.6 L MCHC 32.8 RDW 14.6 Plt Count 400 MPV 8.8 Sodium 150 H Potassium 2.8 L* Chloride 107 Carbon Dioxide 33 H Anion Gap 9 BUN 25 H Creatinine 0.8 Creat Clearance w eGFR > 60 POC Glucometer 135 Random Glucose 125 H Lactic Acid Calcium 8.0 L Phosphorus 3.4 Magnesium 2.3 04/08/18 11:21 WBC RBC Hgb Hct MCV MCH MCHC RDW Plt Count MPV Sodium Potassium Chloride Carbon Dioxide Anion Gap BUN Creatinine Creat Clearance w eGFR POC Glucometer 115 Random Glucose Lactic Acid Calcium Phosphorus Magnesium Problem List - Problems (1) SONIDO (acute kidney injury) Code(s): N17.9 - ACUTE KIDNEY FAILURE, UNSPECIFIED (2) Acute respiratory failure with hypoxia Code(s): J96.01 - ACUTE RESPIRATORY FAILURE WITH HYPOXIA (3) Fever Code(s): R50.9 - FEVER, UNSPECIFIED Qualifiers: Fever type: unspecified Qualified Code(s): R50.9 - Fever, unspecified (4) Legionella pneumonia Code(s): A48.1 - LEGIONNAIRES' DISEASE (5) Sepsis Code(s): A41.9 - SEPSIS, UNSPECIFIED ORGANISM Qualifiers: Sepsis type: sepsis due to unspecified organism Qualified Code(s): A41.9 - Sepsis, unspecified organism Assessment/Plan Acute Hypoxic Respiratory Failure improved Legionella Pneumonia Severe Sepsis Acute Kidney Injury improving Lactic Acidosis ARDS Atrial Fibrillation with RVR HTN DM - Noted ABX were broaden - rate control - anticoagulation - monitor urine output, creatinine - Supplemental O2 to maintain saturation - inhaled bronchodilators - PO as tolerated - DVT/GI prophylaxis - replete k - swallowing eval Dr Stephens
[2018-04-08] MEDS: POLYETHYLENE GLYCOL 3350 119 GM BTL PO SCH (14:52)
[2018-04-08] MEDS ORDERED: PIPERACILLIN/TAZOB 3.375 GM 3.375 GM in DEXTROSE 5%-WATER - 50 ML IVPB SCH ×2 (15:00→18:00)
[2018-04-08 15:38] LABS: URINE APPEARANCE SLCLOUDY; URINE BILIRUBIN NEGATIVE (<2.0 mg/dL); URINE COLOR YELLOW; URINE GLUCOSE (UA) NEGATIVE (NEGATIVE); URINE KETONE NEGATIVE (NEGATIVE); URINE LEUK ESTERASE 2+ (NEGATIVE); URINE NITRITE NEGATIVE (NEGATIVE); URINE PROTEIN 1+ (NEGATIVE); URINE UROBILINOGEN NEGATIVE mg/dL (0.2-1.0)
[2018-04-08 15:42] LABS: EPI CELLS RARE /HPF (FEW); URINE BACTERIA RARE /hpf (NONE SEEN); URINE MUCUS RARE; YEAST MODERATE
[2018-04-08 16:53] LABS: ANION GAP 7 MMOL/L (8-16); BLOOD UREA NITROGEN 24 mg/dL (7-18); CALCIUM 7.9 mg/dL (8.5-10.1); CHLORIDE 108 mmol/L (98-107); CO2 33 mmol/L (21-32); CREATININE 0.8 mg/dL (0.55-1.3); GLUCOSE,RANDOM 69 mg/dL (74-106); POTASSIUM 3.1 mmol/L (3.5-5.1); SODIUM 148 mmol/L (136-145)
--- NOTE | 2018-04-08 18:04 | PN ---
Progress Note, Physician History of Present Illness: Awake, alert No complaints Breathing non-labored Temp spike and elevated WBC noted Episode of tachypnea and VT earlier CXR increased infiltrates - Current Medication List Current Medications: Active Medications Acetaminophen (Tylenol -) 650 mg PO Q6H PRN PRN Reason: PAIN LEVEL 4 - 6 Last Admin: 04/07/18 16:39 Dose: 650 mg Amino Acids (Prosource No Carb Liquid Pkt) 30 ml PO BID@0800,1730 [facility] Last Admin: 04/08/18 09:38 Dose: 30 ml Amlodipine Besylate (Norvasc -) 5 mg PO DAILY [facility] Last Admin: 04/08/18 09:41 Dose: 5 mg Atorvastatin Calcium (Lipitor -) 10 mg PO HS [facility] Last Admin: 04/07/18 22:25 Dose: 10 mg Enoxaparin Sodium (Lovenox -) 90 mg SQ BID [facility] Last Admin: 04/08/18 09:42 Dose: 90 mg Vancomycin HCl (Vancomycin (Pre-Docked)) 1,000 mg in 250 mls @ 166.667 mls/hr IVPB Q12H [facility]; Protocol Last Admin: 04/08/18 15:52 Dose: 166.667 mls/hr Piperacillin Sod/Tazobactam (Sod 3.375 gm/ Dextrose) 50 mls @ 100 mls/hr IVPB Q6H-IV [facility] Stop: 04/09/18 03:29 Last Admin: 04/08/18 15:02 Dose: 100 mls/hr Piperacillin Sod/Tazobactam (Sod 4.5 gm/ Dextrose) 100 mls @ 200 mls/hr IVPB Q8H-IV [facility]; Protocol Insulin Aspart (Novolog Vial Sliding Scale -) 1 vial SQ ACHS [facility]; Protocol Last Admin: 04/08/18 17:35 Dose: Not Given Insulin Detemir (Levemir Vial) 24 units SQ BID@0700,2200 [facility] Last Admin: 04/08/18 06:14 Dose: 24 unit Lactobacillus Acidophilus (Bacid -) 1 tab PO DAILY [facility] Last Admin: 04/08/18 09:41 Dose: 1 tab Lisinopril (Prinivil) 10 mg PO DAILY [facility] Last Admin: 04/08/18 09:41 Dose: 10 mg Metoprolol Tartrate (Lopressor Injection -) 5 mg IVPUSH Q4H PRN PRN Reason: HYPERTENSION Metoprolol Tartrate (Lopressor -) 50 mg PO BID [facility] Last Admin: 04/08/18 09:41 Dose: 50 mg Pantoprazole Sodium (Protonix Iv) 40 mg IVPUSH BID [facility] Last Admin: 04/08/18 09:40 Dose: 40 mg Polyethylene Glycol (Miralax (For Daily Use) -) 17 gm PO DAILY [facility] Last Admin: 04/08/18 14:52 Dose: Not Given Zinc Oxide/Panthenol/Vitamin E (Balmex Cream -) 1 applic TP ASDIR PRN PRN Reason: HYGEINE - Objective Vital Signs: Vital Signs Temperature 98.3 F 04/08/18 14:00 Pulse Rate 82 04/08/18 14:00 Respiratory Rate 20 04/08/18 14:00 Blood Pressure 155/84 04/08/18 14:00 O2 Sat by Pulse Oximetry (%) 91 L 04/08/18 10:00 Constitutional: Yes: No Distress Eyes: Yes: Conjunctiva Clear Cardiovascular: Yes: Regular Rate and Rhythm, S1, S2 Respiratory: Yes: Diminished Gastrointestinal: Yes: Normal Bowel Sounds, Soft. No: Tenderness Labs: CBC, BMP 04/08/18 06:00 04/08/18 15:20 INR, PTT INR 1.51 (0.83-1.09) H 03/26/18 05:13 Assessment/Plan Multilobar legionella pneumonia S/P 14d levaquin ? new asp v HCAP Respiratory failure S/P extubation Sepsis secondary to lung source Leukocytosis + Wound c/s MRSA Discontinue levaquin Substitute zosyn Continue vancomycin Contact precautions for + wound c/s MRSA
[2018-04-08] MEDS ORDERED: DEXTROSE 5%-WATER 100 ML IVPB ONE (21:08)
[2018-04-08] MEDS ORDERED: PIPERACILLIN/TAZOBACTAM 4.5 GM VIAL IVPB ONE (21:08)
[2018-04-08] MEDS: ATORVASTATIN CA 10 MG TABLET (FP) PO SCH (21:17)
[2018-04-09] MEDS ORDERED: PIPERACILLIN/TAZOBACTAM 4.5 GM VIAL IVPB ONE ×4 (01:45→16:43)
[2018-04-09] MEDS ORDERED: DEXTROSE 5%-WATER 100 ML IVPB ONE ×3 (01:49→16:43)
[2018-04-09] MEDS: PIPERACILLIN/TAZOB 4.5 GM 4.5 GM in DEXTROSE 5%-WATER 100 ML IVPB SCH ×4 (02:54→17:14)
[2018-04-09] MEDS: VANCOMYCIN 1 GRAM (PRE-DOCKED) 1,000 MG/250 ML BAG IVPB SCH (04:18)
[2018-04-09] MEDS: INSULIN SLIDING SCALE (NOVOLOG) 1 VIAL SQ SCH ×4 (06:54→22:11)
[2018-04-09] MEDS: INSULIN (LEVEMIR) 100 UNITS/ML UNITS SQ SCH ×2 (06:54→22:58)
[2018-04-09 07:21] LABS: HEMATOCRIT 29.9 % (35.4-49); MCH 26.2 pg (25.7-33.7); MCHC 33.5 g/dl (32.0-35.9); MEAN CELL VOLUME 78.3 fl (80-96); MEAN PLT VOLUME 8.8 fl (7.5-11.1); PLATELET COUNT 338 K/MM3 (134-434); RBC 3.82 M/mm3 (4.00-5.60); RDW 14.5 % (11.9-15.9); WHITE BLOOD COUNT 13.5 K/mm3 (4.0-10.0)
[2018-04-09 08:01] LABS: ANION GAP 6 MMOL/L (8-16); BLOOD UREA NITROGEN 22 mg/dL (7-18); CALCIUM 7.5 mg/dL (8.5-10.1); CHLORIDE 106 mmol/L (98-107); CO2 35 mmol/L (21-32); CREATININE 0.9 mg/dL (0.55-1.3); GLUCOSE,RANDOM 80 mg/dL (74-106); MAGNESIUM 2.2 mg/dL (1.8-2.4); PHOSPHOROUS 4.5 mg/dL (2.5-4.9); SODIUM 146 mmol/L (136-145)
[2018-04-09 08:20] LABS: POTASSIUM 2.7 mmol/L (3.5-5.1)
[2018-04-09] MEDS: PANTOPRAZOLE SODIUM 40 MG VIAL IVPUSH SCH ×2 (09:29→22:08)
[2018-04-09] MEDS: AMINO ACIDS/PROTEIN HYDROLYS 30 ML LIQUID.PKT PO SCH ×2 (09:29→16:54)
[2018-04-09] MEDS: METOPROLOL TARTRATE 50 MG TABLET (FP) PO SCH ×2 (09:29→22:07)
[2018-04-09] MEDS: amLODIPine BESYLATE 5 MG TABLET (FP) PO SCH (09:29)
[2018-04-09] MEDS: LACTOBACILLUS ACIDOPHILUS 1 TABLET PO SCH (09:29)
[2018-04-09] MEDS: ENOXAPARIN NA (PORCINE) 100 MG/1 ML DISP.SYRIN SQ SCH (09:30)
[2018-04-09] MEDS: LISINOPRIL 10 MG TABLET (FP) PO SCH (09:30)
[2018-04-09] MEDS ORDERED: POTASSIUM CHLORIDE TABS 20 MEQ TABLET.ER (FP) PO ONE ×2 (09:36→16:00)
[2018-04-09] MEDS: POLYETHYLENE GLYCOL 3350 119 GM BTL PO SCH (09:46)
[2018-04-09] MEDS ORDERED: POTASSIUM CHLORIDE ORAL LIQUID 20 MEQ/15 ML PO ONE (10:00)
--- NOTE | 2018-04-09 10:20 | PN ---
Progress Note (short form) - Note Progress Note: Chief Complaint: resp failure History of Present Illness: no cp sob palps dizzy Current Medications Generic Name Dose Route Start Last Admin Trade Name Pollo PRN Reason Stop Dose Admin Acetaminophen 650 mg 04/05/18 20:39 04/07/18 16:39 Tylenol - PO 650 mg Q6H PRN Administration PAIN LEVEL 4 - 6 Amino Acids 30 ml 04/06/18 08:00 04/09/18 09:29 Prosource No Carb Liquid Pkt PO 30 ml BID@0800,1730 [facility] Administration Amlodipine Besylate 5 mg 04/06/18 10:00 04/09/18 09:29 Norvasc - PO 5 mg DAILY [facility] Administration Apixaban 5 mg 04/09/18 22:00 Eliquis - PO BID [facility] Atorvastatin Calcium 10 mg 04/05/18 22:00 04/08/18 21:17 Lipitor - PO 10 mg HS [facility] Administration Ferrous Sulfate 325 mg 04/10/18 10:00 Feosol - PO DAILY [facility] Vancomycin HCl 1,000 mg in 250 mls @ 166.667 mls/hr 04/06/18 03:30 04/09/18 04:18 Vancomycin (Pre-Docked) IVPB 166.667 mls/hr Q12H [facility] Administration Protocol Piperacillin Sod/Tazobactam 100 mls @ 200 mls/hr 04/08/18 02:00 04/09/18 10: 12 Sod 4.5 gm/ Dextrose IVPB Not Given Q8H-IV [facility] Protocol Potassium Chloride 10 meq in 100 mls @ 100 mls/hr 04/09/18 10:00 Potassium Chloride 10 Meq Premix Ivpb - IVPB 04/09/18 12:59 Q60M [facility] Insulin Aspart 1 vial 04/05/18 22:00 04/09/18 06:54 Novolog Vial Sliding Scale - SQ Not Given ACHS [facility] Protocol Insulin Detemir 24 units 04/05/18 22:00 04/09/18 06:54 Levemir Vial SQ 24 unit BID@0700,2200 [facility] Administration Lactobacillus Acidophilus 1 tab 04/06/18 10:00 04/09/18 09:29 Bacid - PO 1 tab DAILY [facility] Administration Lisinopril 10 mg 04/06/18 10:00 04/09/18 09:30 Prinivil PO 10 mg DAILY [facility] Administration Metoprolol Tartrate 5 mg 04/05/18 20:39 Lopressor Injection - IVPUSH Q4H PRN HYPERTENSION Metoprolol Tartrate 50 mg 04/06/18 22:00 04/09/18 09:29 Lopressor - PO 50 mg BID [facility] Administration Pantoprazole Sodium 40 mg 04/05/18 22:00 04/09/18 09:29 Protonix Iv IVPUSH 40 mg BID [facility] Administration Polyethylene Glycol 17 gm 04/08/18 11:45 04/09/18 09:46 Miralax (For Daily Use) - PO Not Given DAILY [facility] Potassium Chloride 40 meq 04/09/18 16:00 K-Dur - PO 04/09/18 16:01 ONCE ONE Tamsulosin HCl 0.4 mg 04/10/18 08:30 Flomax - PO DAILY@0830 [facility] Zinc Oxide/Panthenol/Vitamin E 1 applic 04/05/18 20:39 Balmex Cream - TP ASDIR PRN HYGEINE - Objective Vital Signs: Vital Signs Period Temp Pulse Resp BP Sys/Santacruz Pulse Ox Last 24 Hr 98.0 F-98.4 F 76-96 18-20 141-161/67-84 90-90 Constitutional: Yes: No Distress, Calm Cardiovascular: Yes: Regular Rate and Rhythm, S1, S2, . No: Gallop, Murmur Respiratory: Yes: +rhonchi. No: Accessory Muscle Use Gastrointestinal: Yes: Normal Bowel Sounds, Soft. No: Tenderness Extremities: No: Cold Edema: No Integumentary: No: Jaundice diaphoresis Neurological:awake, confused Psychiatric: No: Agitated CBC, BMP 04/09/18 06:00 04/09/18 06:00 ct chest: b/l pna ecg: afib vr 154, no ischemic changes, nl qtc ecg 03/30 sinus, QTc 403 (stable) echo 03/18: nl LVSF. nl RV. nl LA. mild MR/TR. RVSP 30-40 tele: sinus a/p: 62 m hx dm, hld, htn here with fever, leg wound. sepsis, PNA, acute resp failure: - has sahu abscess as well as b/l pna - was intubated, now extubated and transferred to floor, bp stable - receiving intermittent lasix, likely third spacing related to IVF - lung exam improving - monitor Cr, daily standing weight, I/O - cont abx per ID, primary afib, rvr: -pt denies hx afib -in er started on dilt gtt and amio gtt-->sinus -cont metoprolol -chadsvasc 2 warrants ac, on lovenox -transition to NOAC when able to take PO SONIDO: -bun/creat up 03/27, ? intravasc vol depletion in setting of DKA -improved with IVF htn: -cont bb, norvasc, ACEI, uptitrate meds as tolerated
[2018-04-09] MEDS: KCL 10 MEQ IVPB 10 MEQ/100 ML INFUS.BAG IVPB SCH ×3 (10:30→13:54)
[2018-04-09] MEDS ORDERED: PT OWN MED DRAWER 7, Y5N ONE (10:46)
--- NOTE | 2018-04-09 11:44 | PN ---
Progress Note, MANAGER TELECOM - Note Progress Note: Selected Entries 04/08/18 04/08/18 04/08/18 02:00 05:46 10:00 Temperature 97.4 F L 98.1 F 98.2 F 04/08/18 04/08/18 04/08/18 14:00 18:00 22:00 Temperature 98.3 F 98.2 F 98.0 F 04/09/18 04/09/18 02:00 05:48 Temperature 98.1 F 98.4 F Laboratory Tests 04/06/18 04/07/18 04/08/18 06:20 05:50 06:00 WBC 14.8 H 17.6 H 19.3 H 04/09/18 06:00 WBC 13.5 H Did well during MBS. Started on Dys chopped/nectar with good tolerance. If pt can be oob for meals, pt may tolerate eg chopped, add tuna, egg salad, fish and sips of thin water. Mouth care before meals.
--- NOTE | 2018-04-09 12:19 | PN ---
Progress Note, Physician History of Present Illness: More lethargic and tachypneic today No complaints + cough noted Temps, WBC down CXR increased infiltrates - Current Medication List Current Medications: Active Medications Acetaminophen (Tylenol -) 650 mg PO Q6H PRN PRN Reason: PAIN LEVEL 4 - 6 Last Admin: 04/07/18 16:39 Dose: 650 mg Amino Acids (Prosource No Carb Liquid Pkt) 30 ml PO BID@0800,1730 [facility] Last Admin: 04/09/18 09:29 Dose: 30 ml Amlodipine Besylate (Norvasc -) 5 mg PO DAILY [facility] Last Admin: 04/09/18 09:29 Dose: 5 mg Apixaban (Eliquis -) 5 mg PO BID [facility] Atorvastatin Calcium (Lipitor -) 10 mg PO HS [facility] Last Admin: 04/08/18 21:17 Dose: 10 mg Ferrous Sulfate (Feosol -) 325 mg PO DAILY [facility] Vancomycin HCl (Vancomycin (Pre-Docked)) 1,000 mg in 250 mls @ 166.667 mls/hr IVPB Q12H [facility]; Protocol Last Admin: 04/09/18 04:18 Dose: 166.667 mls/hr Piperacillin Sod/Tazobactam (Sod 4.5 gm/ Dextrose) 100 mls @ 200 mls/hr IVPB Q8H-IV [facility]; Protocol Last Admin: 04/09/18 10:12 Dose: Not Given Potassium Chloride (Potassium Chloride 10 Meq Premix Ivpb -) 10 meq in 100 mls @ 100 mls/hr IVPB Q60M [facility] Stop: 04/09/18 12:59 Last Admin: 04/09/18 12:03 Dose: 100 mls/hr Insulin Aspart (Novolog Vial Sliding Scale -) 1 vial SQ ACHS [facility]; Protocol Last Admin: 04/09/18 12:02 Dose: 4 units Insulin Detemir (Levemir Vial) 24 units SQ BID@0700,2200 [facility] Last Admin: 04/09/18 06:54 Dose: 24 unit Lactobacillus Acidophilus (Bacid -) 1 tab PO DAILY [facility] Last Admin: 04/09/18 09:29 Dose: 1 tab Lisinopril (Prinivil) 10 mg PO DAILY [facility] Last Admin: 04/09/18 09:30 Dose: 10 mg Metoprolol Tartrate (Lopressor Injection -) 5 mg IVPUSH Q4H PRN PRN Reason: HYPERTENSION Metoprolol Tartrate (Lopressor -) 50 mg PO BID [facility] Last Admin: 04/09/18 09:29 Dose: 50 mg Pantoprazole Sodium (Protonix Iv) 40 mg IVPUSH BID [facility] Last Admin: 04/09/18 09:29 Dose: 40 mg Polyethylene Glycol (Miralax (For Daily Use) -) 17 gm PO DAILY [facility] Last Admin: 04/09/18 09:46 Dose: Not Given Potassium Chloride (K-Dur -) 40 meq PO ONCE ONE Stop: 04/09/18 16:01 Tamsulosin HCl (Flomax -) 0.4 mg PO DAILY@829 [facility] Zinc Oxide/Panthenol/Vitamin E (Balmex Cream -) 1 applic TP ASDIR PRN PRN Reason: HYGEINE - Objective Vital Signs: Vital Signs Temperature 98.4 F 04/09/18 05:48 Pulse Rate 76 04/09/18 05:48 Respiratory Rate 20 04/09/18 05:48 Blood Pressure 141/67 04/09/18 05:48 O2 Sat by Pulse Oximetry (%) 92 L 04/09/18 10:00 Constitutional: Yes: No Distress Eyes: Yes: Conjunctiva Clear Cardiovascular: Yes: Regular Rate and Rhythm, S1, S2 Respiratory: Yes: Other (+ crepitations at bases) Gastrointestinal: Yes: Normal Bowel Sounds, Soft, Abdomen, Obese. No: Tenderness Extremities: Yes: Other (R LE wound healed No drainage) Edema: No Labs: CBC, BMP 04/09/18 06:00 04/09/18 06:00 INR, PTT INR 1.51 (0.83-1.09) H 03/26/18 05:13 Assessment/Plan Multilobar legionella pneumonia S/P 14d levaquin ? new asp v HCAP Respiratory failure S/P extubation Sepsis secondary to lung source Leukocytosis + Wound c/s MRSA Continue zosyn Discontinue vancomycin
--- NOTE | 2018-04-09 13:03 | PN ---
Progress Note, Physician History of Present Illness: pulmonary alert,no distress,-sob - Current Medication List Current Medications: Active Medications Acetaminophen (Tylenol -) 650 mg PO Q6H PRN PRN Reason: PAIN LEVEL 4 - 6 Last Admin: 04/07/18 16:39 Dose: 650 mg Amino Acids (Prosource No Carb Liquid Pkt) 30 ml PO BID@0800,1730 [facility] Last Admin: 04/09/18 09:29 Dose: 30 ml Amlodipine Besylate (Norvasc -) 5 mg PO DAILY [facility] Last Admin: 04/09/18 09:29 Dose: 5 mg Apixaban (Eliquis -) 5 mg PO BID [facility] Atorvastatin Calcium (Lipitor -) 10 mg PO HS [facility] Last Admin: 04/08/18 21:17 Dose: 10 mg Ferrous Sulfate (Feosol -) 325 mg PO DAILY [facility] Piperacillin Sod/Tazobactam (Sod 4.5 gm/ Dextrose) 100 mls @ 200 mls/hr IVPB Q8H-IV [facility]; Protocol Last Admin: 04/09/18 10:12 Dose: Not Given Potassium Chloride (Potassium Chloride 10 Meq Premix Ivpb -) 10 meq in 100 mls @ 100 mls/hr IVPB Q60M [facility] Stop: 04/09/18 12:59 Last Admin: 04/09/18 12:03 Dose: 100 mls/hr Insulin Aspart (Novolog Vial Sliding Scale -) 1 vial SQ ACHS [facility]; Protocol Last Admin: 04/09/18 12:02 Dose: 4 units Insulin Detemir (Levemir Vial) 24 units SQ BID@0700,2200 [facility] Last Admin: 04/09/18 06:54 Dose: 24 unit Lactobacillus Acidophilus (Bacid -) 1 tab PO DAILY [facility] Last Admin: 04/09/18 09:29 Dose: 1 tab Lisinopril (Prinivil) 10 mg PO DAILY [facility] Last Admin: 04/09/18 09:30 Dose: 10 mg Metoprolol Tartrate (Lopressor Injection -) 5 mg IVPUSH Q4H PRN PRN Reason: HYPERTENSION Metoprolol Tartrate (Lopressor -) 50 mg PO BID [facility] Last Admin: 04/09/18 09:29 Dose: 50 mg Pantoprazole Sodium (Protonix Iv) 40 mg IVPUSH BID [facility] Last Admin: 04/09/18 09:29 Dose: 40 mg Polyethylene Glycol (Miralax (For Daily Use) -) 17 gm PO DAILY [facility] Last Admin: 04/09/18 09:46 Dose: Not Given Potassium Chloride (K-Dur -) 40 meq PO ONCE ONE Stop: 04/09/18 16:01 Tamsulosin HCl (Flomax -) 0.4 mg PO DAILY@0830 [facility] Zinc Oxide/Panthenol/Vitamin E (Balmex Cream -) 1 applic TP ASDIR PRN PRN Reason: HYGEINE - Objective Vital Signs: Vital Signs Temperature 97.4 F L 04/09/18 10:00 Pulse Rate 76 04/09/18 10:00 Respiratory Rate 20 04/09/18 10:00 Blood Pressure 129/72 04/09/18 10:00 O2 Sat by Pulse Oximetry (%) 92 L 04/09/18 10:00 Constitutional: Yes: Well Nourished, Calm Eyes: Yes: WNL HENT: Yes: WNL Neck: Yes: WNL Cardiovascular: Yes: Pulse Irregular, S1, S2 Respiratory: Yes: Rhonchi (few scattered rhonchi) Gastrointestinal: Yes: Normal Bowel Sounds, Soft Extremities: Yes: WNL Edema: No Labs: CBC, BMP 04/09/18 06:00 04/09/18 06:00 INR, PTT INR 1.51 (0.83-1.09) H 03/26/18 05:13 Problem List - Problems (1) SONIDO (acute kidney injury) Code(s): N17.9 - ACUTE KIDNEY FAILURE, UNSPECIFIED (2) Acute respiratory failure with hypoxia Code(s): J96.01 - ACUTE RESPIRATORY FAILURE WITH HYPOXIA (3) Fever Code(s): R50.9 - FEVER, UNSPECIFIED Qualifiers: Fever type: unspecified Qualified Code(s): R50.9 - Fever, unspecified (4) Legionella pneumonia Code(s): A48.1 - LEGIONNAIRES' DISEASE (5) Sepsis Code(s): A41.9 - SEPSIS, UNSPECIFIED ORGANISM Qualifiers: Sepsis type: sepsis due to unspecified organism Qualified Code(s): A41.9 - Sepsis, unspecified organism Assessment/Plan ASSESSMENT AND PLAN: Acute Hypoxic Respiratory Failure improved Legionella Pneumonia Severe Sepsis Acute Kidney Injury improving Lactic Acidosis ARDS Atrial Fibrillation with RVR HTN DM - antibiotics - rate control - anticoagulation - monitor urine output, creatinine - Supplemental O2 to maintain saturation - inhaled bronchodilators - PO as tolerated - DVT/GI prophylaxis - replete k - swallowing dane BOWERS
[2018-04-09] MEDS ORDERED: PIPERACILLIN/TAZOB 3.375 GM 3.375 GM in DEXTROSE 5%-WATER - 50 ML IVPB SCH (15:00)
[2018-04-09 16:17] LABS: ANION GAP 8 MMOL/L (8-16); BLOOD UREA NITROGEN 23 mg/dL (7-18); CALCIUM 7.7 mg/dL (8.5-10.1); CHLORIDE 103 mmol/L (98-107); CO2 30 mmol/L (22-28); CREATININE 1.2 mg/dL (0.55-1.3); GLUCOSE,RANDOM 296 mg/dL (74-106); POTASSIUM 3.3 mmol/L (3.5-5.1); SODIUM 142 mmol/L (136-145)
[2018-04-09] MEDS ORDERED: INSULIN (NOVOLOG) ASPART 100 UNITS/ML 10ML VIAL ONE (17:29)
--- NOTE | 2018-04-09 18:05 | PN ---
Teaching Attending Note ATTENDING PHYSICIAN STATEMENT I saw and evaluated the patient. I reviewed the resident's note and discussed the case with the resident. I agree with the resident's findings and plan as documented. SUBJECTIVE: He has no complaints at this time. OBJECTIVE: Last Vital Signs Temp Pulse Resp BP Pulse Ox 97.6 F 81 20 154/91 92 L 04/09/18 13:51 04/09/18 13:51 04/09/18 13:51 04/09/18 13:51 04/09/18 10:00 CBCD WBC 13.5 K/mm3 (4.0-10.0) H 04/09/18 06:00 RBC 3.82 M/mm3 (4.00-5.60) L 04/09/18 06:00 Hgb 10.0 GM/dL (11.7-16.9) L 04/09/18 06:00 Hct 29.9 % (35.4-49) L 04/09/18 06:00 MCV 78.3 fl (80-96) L 04/09/18 06:00 MCHC 33.5 g/dl (32.0-35.9) 04/09/18 06:00 RDW 14.5 % (11.9-15.9) 04/09/18 06:00 Plt Count 338 K/MM3 (134-434) 04/09/18 06:00 MPV 8.8 fl (7.5-11.1) 04/09/18 06:00 CMP Sodium 142 mmol/L (136-145) 04/09/18 15:20 Potassium 3.3 mmol/L (3.5-5.1) L 04/09/18 15:20 Chloride 103 mmol/L (98-107) 04/09/18 15:20 Carbon Dioxide 30 mmol/L (22-28) H 04/09/18 15:20 Anion Gap 8 MMOL/L (8-16) 04/09/18 15:20 BUN 23 mg/dL (7-18) H 04/09/18 15:20 Creatinine 1.2 mg/dL (0.55-1.3) 04/09/18 15:20 Creat Clearance w eGFR > 60 (>60) 04/09/18 15:20 Random Glucose 296 mg/dL (74-106) H 04/09/18 15:20 Calcium 7.7 mg/dL (8.5-10.1) L 04/09/18 15:20 Total Bilirubin 0.5 mg/dL (0.2-1) 04/06/18 06:20 AST 27 U/L (15-37) 04/06/18 06:20 ALT 48 U/L (13-61) 04/06/18 06:20 Alkaline Phosphatase 97 U/L (45-117) 04/06/18 06:20 Total Protein 5.4 g/dl (6.4-8.2) L 04/06/18 06:20 Albumin 1.7 g/dl (3.4-5.0) L 04/06/18 06:20 CARDIAC ENZYMES Troponin I 0.02 ng/ml (0.00-0.05) 03/26/18 05:13 Intake & Output 04/06/18 04/07/18 04/08/18 04/09/18 23:59 23:59 23:59 23:59 Intake Total 1150 1480 300 250 Output Total 800 1800 1000 1450 Balance 350 -320 -700 -1200 Current Medications Generic Name Dose Route Start Last Admin Trade Name Freq PRN Reason Stop Dose Admin Acetaminophen 650 mg 04/05/18 20:39 04/07/18 16:39 Tylenol - PO 650 mg Q6H PRN Administration PAIN LEVEL 4 - 6 Amino Acids 30 ml 04/06/18 08:00 04/09/18 16:54 Prosource No Carb Liquid Pkt PO 30 ml BID@0800,1730 [facility] Administration Amlodipine Besylate 5 mg 04/06/18 10:00 04/09/18 09:29 Norvasc - PO 5 mg DAILY [facility] Administration Apixaban 5 mg 04/09/18 22:00 Eliquis - PO BID [facility] Atorvastatin Calcium 10 mg 04/05/18 22:00 04/08/18 21:17 Lipitor - PO 10 mg HS [facility] Administration Ferrous Sulfate 325 mg 04/10/18 10:00 Feosol - PO DAILY [facility] Piperacillin Sod/Tazobactam 100 mls @ 200 mls/hr 04/08/18 02:00 04/09/18 17: 14 Sod 4.5 gm/ Dextrose IVPB 200 mls/hr Q8H-IV [facility] Administration Protocol Insulin Aspart 1 vial 04/05/18 22:00 04/09/18 16:54 Novolog Vial Sliding Scale - SQ 6 units ACHS [facility] Administration Protocol Insulin Detemir 24 units 04/05/18 22:00 04/09/18 06:54 Levemir Vial SQ 24 unit BID@0700,2200 [facility] Administration Lactobacillus Acidophilus 1 tab 04/06/18 10:00 04/09/18 09:29 Bacid - PO 1 tab DAILY [facility] Administration Lisinopril 10 mg 04/06/18 10:00 04/09/18 09:30 Prinivil PO 10 mg DAILY [facility] Administration Metoprolol Tartrate 5 mg 04/05/18 20:39 Lopressor Injection - IVPUSH Q4H PRN HYPERTENSION Metoprolol Tartrate 50 mg 04/06/18 22:00 04/09/18 09:29 Lopressor - PO 50 mg BID [facility] Administration Pantoprazole Sodium 40 mg 04/05/18 22:00 04/09/18 09:29 Protonix Iv IVPUSH 40 mg BID [facility] Administration Polyethylene Glycol 17 gm 04/08/18 11:45 04/09/18 09:46 Miralax (For Daily Use) - PO Not Given DAILY [facility] Tamsulosin HCl 0.4 mg 04/10/18 08:30 Flomax - PO DAILY@0830 [facility] Zinc Oxide/Panthenol/Vitamin E 1 applic 04/05/18 20:39 Balmex Cream - TP ASDIR PRN HYGEINE ASSESSMENT AND PLAN: urinary retention: has morataya in place, will start on tamulsin, boewel regime, prostate US, /FU UA Hypokalemia: possibly in the setting of lasix and decreased PO intake, will DC lasix, aggressive repletion with po and IV K supplements, and qh bmp Anemia: likely in the setting of prolong hospital stay, will start on iron supplement nutrition: he passed S@S today and is started on Po diet, will ask for nutrition consult deconditioning been evaluated by PT, Will ask the nursing staff to transfer him to chair, as it will improve his condition and aspiration risk episode of fever, new infiltrated on XR: patient was started on broad spectrom antibiotics for aspiration PNA, will send sputum CX and f/u rest of the CXs, leukocytosis is improving and patient has no more fever spikes for 48 hour. f/u cxr, decreased o2 level to 4 L and reevaluated the saturations which he saturation gin low 90s. incentive spirometry chest PT SONIDO: with elevated BUN: most likely prerenal, send urine lytes, monitor I/O. prevent nephrotoxins. wound MRSA, resolved: no more need for ABX for that. AFIB: Rate control on B Blockers,started on eliquis from today FC DVT ppx; LOVENOX SQ Diet: per nutrition consult
--- NOTE | 2018-04-09 21:15 | PN ---
Physical Exam: SUBJECTIVE: Patient seen and examined at bedside. Urinary retention overnight, morataya re-inserted. Denies sob or chest pain this am. OBJECTIVE: Vital Signs Period Temp Pulse Resp BP Sys/Santacruz Pulse Ox Last 24 Hr 97.4 F-98.4 F 75-96 18-20 129-161/67-91 88-92 GENERAL: NAD HEAD: NC/AT EYES: PERRLA EOMI ENT: MMM LUNGS: Crackles at bases HEART: Irregular ABDOMEN: Soft NDNT No HSM EXTREMITIES: No CCE NEUROLOGICAL: Cranial nerves II through XII grossly intact. Normal speech, gait not observed. PSYCH: Normal mood, normal affect. SKIN: Wound R lower leg resolving. Laboratory Results - last 24 hr 04/08/18 04/09/18 04/09/18 21:16 05:44 06:00 WBC 13.5 H RBC 3.82 L Hgb 10.0 L Hct 29.9 L MCV 78.3 L MCH 26.2 MCHC 33.5 RDW 14.5 Plt Count 338 MPV 8.8 Sodium Potassium Chloride Carbon Dioxide Anion Gap BUN Creatinine Creat Clearance w eGFR POC Glucometer 337 102 Random Glucose Calcium Phosphorus Magnesium 04/09/18 04/09/18 04/09/18 06:00 10:59 15:20 WBC RBC Hgb Hct MCV MCH MCHC RDW Plt Count MPV Sodium 146 H 142 Potassium 2.7 L* 3.3 L Chloride 106 103 Carbon Dioxide 35 H 30 H Anion Gap 6 L 8 BUN 22 H 23 H Creatinine 0.9 1.2 Creat Clearance w eGFR > 60 > 60 POC Glucometer 206 Random Glucose 80 296 H Calcium 7.5 L 7.7 L Phosphorus 4.5 Magnesium 2.2 04/09/18 16:32 WBC RBC Hgb Hct MCV MCH MCHC RDW Plt Count MPV Sodium Potassium Chloride Carbon Dioxide Anion Gap BUN Creatinine Creat Clearance w eGFR POC Glucometer 281 Random Glucose Calcium Phosphorus Magnesium Active Medications Generic Name Dose Route Start Last Admin Trade Name Freq PRN Reason Stop Dose Admin Acetaminophen 650 mg 04/05/18 20:39 04/07/18 16:39 Tylenol - PO 650 mg Q6H PRN Administration PAIN LEVEL 4 - 6 Amino Acids 30 ml 04/06/18 08:00 04/09/18 16:54 Prosource No Carb Liquid Pkt PO 30 ml BID@0800,1730 [facility] Administration Amlodipine Besylate 5 mg 04/06/18 10:00 04/09/18 09:29 Norvasc - PO 5 mg DAILY [facility] Administration Apixaban 5 mg 04/09/18 22:00 Eliquis - PO BID [facility] Atorvastatin Calcium 10 mg 04/05/18 22:00 04/08/18 21:17 Lipitor - PO 10 mg HS [facility] Administration Ferrous Sulfate 325 mg 04/10/18 10:00 Feosol - PO DAILY [facility] Piperacillin Sod/Tazobactam 100 mls @ 200 mls/hr 04/08/18 02:00 04/09/18 17: 14 Sod 4.5 gm/ Dextrose IVPB 200 mls/hr Q8H-IV [facility] Administration Protocol Insulin Aspart 1 vial 04/05/18 22:00 04/09/18 16:54 Novolog Vial Sliding Scale - SQ 6 units ACHS [facility] Administration Protocol Insulin Detemir 24 units 04/05/18 22:00 04/09/18 06:54 Levemir Vial SQ 24 unit BID@0700,2200 [facility] Administration Lactobacillus Acidophilus 1 tab 04/06/18 10:00 04/09/18 09:29 Bacid - PO 1 tab DAILY [facility] Administration Lisinopril 10 mg 04/06/18 10:00 04/09/18 09:30 Prinivil PO 10 mg DAILY [facility] Administration Metoprolol Tartrate 5 mg 04/05/18 20:39 Lopressor Injection - IVPUSH Q4H PRN HYPERTENSION Metoprolol Tartrate 50 mg 04/06/18 22:00 04/09/18 09:29 Lopressor - PO 50 mg BID [facility] Administration Pantoprazole Sodium 40 mg 04/05/18 22:00 04/09/18 09:29 Protonix Iv IVPUSH 40 mg BID [facility] Administration Polyethylene Glycol 17 gm 04/08/18 11:45 04/09/18 09:46 Miralax (For Daily Use) - PO Not Given DAILY [facility] Tamsulosin HCl 0.4 mg 04/10/18 08:30 Flomax - PO DAILY@0830 [facility] Zinc Oxide/Panthenol/Vitamin E 1 applic 04/05/18 20:39 Balmex Cream - TP ASDIR PRN HYGEINE ASSESSMENT/PLAN: Patient is a 62 year old male with history of DM, HTN, HLD presented with complaint of shortness of breath past five days. # Sepsis secondary to Pneumonia/Legionella Pneumonia -Extubated 04/04/18 -Patient received Vancomycin and Zosyn in ED -Given 1 dose 3.375 G Zosyn yesterday. Vanco d/c'ed per ID- Dr Rosenbaum . Continue Zosyn -Lactic acidosis resolved -Infectious disease Dr Rosenbaum on board -Urine/Blood cultures negative -Central line removed 03/29/18 -R Calf abscess Wound culture + for MRSA -Urine Culture + for Strep Agalactiae Group B - Modified Barium Swallow 04/08/18. #Urinary Retention/ Phimosis -Changed Morataya Catheter 04/07/18 as it was not draining per nurse. -Bladder scanned and showed 900cc in bladder, morataya was replaced with a new 16 fr morataya by myself, 900cc output, bladder re-scanned with 0cc residual in bladder. -Genital examination shows phimosis and inability to retract foreskin. -Urology Consult- Spoke with Dr Dial. Will f/u as outpatient for possible elective circumcision. -Urinary reention overnight 04/09/18, morataya re-inserted, Tamsulosin 0.4 mg daily for urinary retention # Acute respiratory failure -Likely secondary to the pneumonia -Extubated -Continue oxygen to maintain saturation >90% # Afib -Patient denies history of Afib, or any cardiac history in past. -CHADsVASC score of 2 -Lovenox 90 bid Switched to Eliquis 5 mg po bid today 04/09/18 -Cardiac monitoring -Cardiology on board -Lopressor 50 mg po BID # Hypertension Lisinopril 10 mg po daily #IDDM -Levemir 24 U SQ BID -A1c 11.5% # FEN -No Fluids -Monitor Electrolytes -Dys chopped/nectar # Prophylaxis -Eliquis 5 mg po bid # Disposition -med surg Visit type - Emergency Visit Emergency Visit: Yes ED Registration Date: 03/25/18 Care time: The patient presented to the Emergency Department on the above date and was hospitalized for further evaluation of their emergent condition. - New Patient This patient is new to me today: No - Critical Care Critical Care patient: No - Discharge Referral Referred to [facility] Med P.C.: No
[2018-04-09] MEDS: ATORVASTATIN CA 10 MG TABLET (FP) PO SCH (22:07)
[2018-04-09] MEDS: APIXABAN 5 MG TABLET PO SCH (22:07)
[2018-04-10] MEDS ORDERED: DEXTROSE 5%-WATER 100 ML IVPB ONE ×3 (01:27→17:02)
[2018-04-10] MEDS ORDERED: PIPERACILLIN/TAZOBACTAM 4.5 GM VIAL IVPB ONE ×3 (01:27→17:02)
[2018-04-10] MEDS: PIPERACILLIN/TAZOB 4.5 GM 4.5 GM in DEXTROSE 5%-WATER 100 ML IVPB SCH ×3 (02:10→17:09)
[2018-04-10] MEDS: INSULIN (LEVEMIR) 100 UNITS/ML UNITS SQ SCH ×2 (06:25→21:56)
[2018-04-10] MEDS: INSULIN SLIDING SCALE (NOVOLOG) 1 VIAL SQ SCH ×4 (06:25→21:56)
[2018-04-10 07:38] LABS: HEMATOCRIT 29.8 % (35.4-49); HEMOGLOBIN 9.9 GM/dL (11.7-16.9); MCH 26.2 pg (25.7-33.7); MCHC 33.2 g/dl (32.0-35.9); MEAN CELL VOLUME 78.8 fl (80-96); MEAN PLT VOLUME 8.8 fl (7.5-11.1); PLATELET COUNT 346 K/MM3 (134-434); RBC 3.78 M/mm3 (4.00-5.60); RDW 14.9 % (11.9-15.9); WHITE BLOOD COUNT 10.6 K/mm3 (4.0-10.0)
[2018-04-10 08:06] LABS: ANION GAP 7 MMOL/L (8-16); BLOOD UREA NITROGEN 17 mg/dL (7-18); CALCIUM 7.5 mg/dL (8.5-10.1); CHLORIDE 105 mmol/L (98-107); CO2 31 mmol/L (21-32); CREATININE 0.8 mg/dL (0.55-1.3); GLUCOSE,RANDOM 118 mg/dL (74-106); MAGNESIUM 2.1 mg/dL (1.8-2.4); PHOSPHOROUS 3.7 mg/dL (2.5-4.9); SODIUM 142 mmol/L (136-145)
[2018-04-10] MEDS ORDERED: POTASSIUM CHLORIDE TABS 20 MEQ TABLET.ER (FP) PO ONE (08:32)
--- NOTE | 2018-04-10 09:09 | PN ---
Teaching Attending Note Name of Resident: Joe Larkin ATTENDING PHYSICIAN STATEMENT I saw and evaluated the patient. I reviewed the resident's note and discussed the case with the resident. I agree with the resident's findings and plan as documented. SUBJECTIVE: no issues he was laying don flat in his bad OBJECTIVE: AAOX3 stoma is well with good fecal content in bag the surgical vac intact positive bowel sounds lungs clear to auscultation ASSESSMENT AND PLAN: Patient is a 62 year old male with history of DM, HTN, HLD admitted for SIRS with sepsis 2/2 to pneumonia associated with acute hypoxemic respiratory failure s/p extubation # Sepsis secondary to Pneumonia/Legionella Pneumonia with metabolic acidosis 2 /2 lactic acid -Extubated 04/04/18 -R Calf abscess Wound culture + for MRSA -Urine Culture + for Strep Agalactiae Group B #Urinary Retention/ Phimosis -Genital examination shows phimosis and inability to retract foreskin. -Urology Consult -Urinary reention overnight 04/09/18, morataya re-inserted, Tamsulosin 0.4 mg daily for urinary retention # Acute respiratory failure resolved -Likely secondary to the pneumonia # Afib -CHADsVASC score of 2 -Apixiban 5 mg po bid -Cardiac monitoring - rate control with metoprolol 50 mg po twice a day # Hypertension Lisinopril 10 mg po daily #IDDM -Levemir 24 U SQ BID -A1c 11.5% # FEN -No Fluids -Monitor Electrolytes -Dys chopped/nectar # Prophylaxis -Eliquis 5 mg po bid
[2018-04-10] MEDS: KCL 10 MEQ IVPB 10 MEQ/100 ML INFUS.BAG IVPB SCH ×2 (09:28→10:49)
[2018-04-10] MEDS: amLODIPine BESYLATE 5 MG TABLET (FP) PO SCH (10:48)
[2018-04-10] MEDS: FERROUS SO4 325 MG TABLET (FP) PO SCH (10:48)
[2018-04-10] MEDS: METOPROLOL TARTRATE 50 MG TABLET (FP) PO SCH ×2 (10:48→21:56)
[2018-04-10] MEDS: LACTOBACILLUS ACIDOPHILUS 1 TABLET PO SCH (10:48)
[2018-04-10] MEDS: TAMSULOSIN HCL 0.4 MG CAP PO SCH (10:48)
[2018-04-10] MEDS: APIXABAN 5 MG TABLET PO SCH ×2 (10:48→21:57)
[2018-04-10] MEDS: LISINOPRIL 10 MG TABLET (FP) PO SCH (10:48)
[2018-04-10] MEDS: AMINO ACIDS/PROTEIN HYDROLYS 30 ML LIQUID.PKT PO SCH ×2 (10:49→17:09)
[2018-04-10] MEDS: PANTOPRAZOLE SODIUM 40 MG VIAL IVPUSH SCH ×2 (10:50→21:56)
[2018-04-10] MEDS: POLYETHYLENE GLYCOL 3350 119 GM BTL PO SCH (10:50)
--- NOTE | 2018-04-10 11:22 | PN ---
Progress Note (short form) - Note Progress Note: Chief Complaint: resp failure History of Present Illness: no cp sob palps dizzy Current Medications Generic Name Dose Route Start Last Admin Trade Name Freq PRN Reason Stop Dose Admin Acetaminophen 650 mg 04/05/18 20:39 04/07/18 16:39 Tylenol - PO 650 mg Q6H PRN Administration PAIN LEVEL 4 - 6 Amino Acids 30 ml 04/06/18 08:00 04/10/18 10:49 Prosource No Carb Liquid Pkt PO 30 ml BID@0800,1730 [facility] Administration Amlodipine Besylate 5 mg 04/06/18 10:00 04/10/18 10:48 Norvasc - PO 5 mg DAILY [facility] Administration Apixaban 5 mg 04/09/18 22:00 04/10/18 10:48 Eliquis - PO 5 mg BID [facility] Administration Atorvastatin Calcium 10 mg 04/05/18 22:00 04/09/18 22:07 Lipitor - PO 10 mg HS [facility] Administration Ferrous Sulfate 325 mg 04/10/18 10:00 04/10/18 10:48 Feosol - PO 325 mg DAILY [facility] Administration Piperacillin Sod/Tazobactam 100 mls @ 200 mls/hr 04/08/18 02:00 04/10/18 09: 28 Sod 4.5 gm/ Dextrose IVPB 200 mls/hr Q8H-IV [facility] Administration Protocol Insulin Aspart 1 vial 04/05/18 22:00 04/10/18 06:25 Novolog Vial Sliding Scale - SQ Not Given ACHS [facility] Protocol Insulin Detemir 24 units 04/05/18 22:00 04/10/18 06:25 Levemir Vial SQ Not Given BID@0700,2200 [facility] Lactobacillus Acidophilus 1 tab 04/06/18 10:00 04/10/18 10:48 Bacid - PO 1 tab DAILY [facility] Administration Lisinopril 10 mg 04/06/18 10:00 04/10/18 10:48 Prinivil PO 10 mg DAILY [facility] Administration Metoprolol Tartrate 5 mg 04/05/18 20:39 Lopressor Injection - IVPUSH Q4H PRN HYPERTENSION Metoprolol Tartrate 50 mg 04/06/18 22:00 04/10/18 10:48 Lopressor - PO 50 mg BID [facility] Administration Pantoprazole Sodium 40 mg 04/05/18 22:00 04/10/18 10:50 Protonix Iv IVPUSH 40 mg BID [facility] Administration Polyethylene Glycol 17 gm 04/08/18 11:45 04/10/18 10:50 Miralax (For Daily Use) - PO Not Given DAILY [facility] Tamsulosin HCl 0.4 mg 04/10/18 08:30 04/10/18 10:48 Flomax - PO 0.4 mg DAILY@0830 [facility] Zinc Oxide/Panthenol/Vitamin E 1 applic 04/05/18 20:39 Balmex Cream - TP ASDIR PRN HYGEINE - Objective Vital Signs: Vital Signs Period Temp Pulse Resp BP Sys/Santacruz Pulse Ox Last 24 Hr 97.3 F-98.2 F 65-83 16-20 135-154/71-91 88-88 Constitutional: Yes: No Distress, Calm Cardiovascular: Yes: Regular Rate and Rhythm, S1, S2, . No: Gallop, Murmur Respiratory: Yes: +rhonchi. No: Accessory Muscle Use Gastrointestinal: Yes: Normal Bowel Sounds, Soft. No: Tenderness Extremities: No: Cold Edema: No Integumentary: No: Jaundice diaphoresis Neurological:awake, confused Psychiatric: No: Agitated CBC, BMP 04/10/18 06:35 04/10/18 06:35 ct chest: b/l pna ecg: afib vr 154, no ischemic changes, nl qtc ecg 03/30 sinus, QTc 403 (stable) echo 03/18: nl LVSF. nl RV. nl LA. mild MR/TR. RVSP 30-40 tele: sinus, occ pvcs a/p: 62 m hx dm, hld, htn here with fever, leg wound. sepsis, PNA, acute resp failure: - has sahu abscess as well as b/l pna - was intubated, now extubated and transferred to floor, bp stable - receiving intermittent lasix, likely third spacing related to IVF - lung exam improving - monitor Cr, daily standing weight, I/O - cont abx per ID, primary afib, rvr: -pt denies hx afib -in er started on dilt gtt and amio gtt-->sinus -cont metoprolol -chadsvasc 2 warrants ac, cont eliquis SONIDO: -bun/creat up 03/27, ? intravasc vol depletion in setting of DKA -improved with IVF htn: -cont bb, norvasc, ACEI, uptitrate meds as tolerated
--- NOTE | 2018-04-10 13:09 | PN ---
Progress Note (short form) - Note Progress Note: Resting in NAD. No CP or SOB. No acute events overnight. Intake & Output 04/07/18 04/08/18 04/09/18 04/10/18 23:59 23:59 23:59 23:59 Intake Total 1480 300 770 670 Output Total 1800 1000 2150 Balance -320 -700 -1380 670 Last Vital Signs Temp Pulse Resp BP Pulse Ox 97.3 F L 70 16 137/74 88 L 04/10/18 05:31 04/10/18 05:31 04/10/18 05:31 04/10/18 05:31 04/09/18 22:00 Active Medications Acetaminophen (Tylenol -) 650 mg PO Q6H PRN PRN Reason: PAIN LEVEL 4 - 6 Last Admin: 04/07/18 16:39 Dose: 650 mg Amino Acids (Prosource No Carb Liquid Pkt) 30 ml PO BID@0800,1730 [facility] Last Admin: 04/10/18 10:49 Dose: 30 ml Amlodipine Besylate (Norvasc -) 5 mg PO DAILY [facility] Last Admin: 04/10/18 10:48 Dose: 5 mg Apixaban (Eliquis -) 5 mg PO BID [facility] Last Admin: 04/10/18 10:48 Dose: 5 mg Atorvastatin Calcium (Lipitor -) 10 mg PO HS [facility] Last Admin: 04/09/18 22:07 Dose: 10 mg Ferrous Sulfate (Feosol -) 325 mg PO DAILY [facility] Last Admin: 04/10/18 10:48 Dose: 325 mg Piperacillin Sod/Tazobactam (Sod 4.5 gm/ Dextrose) 100 mls @ 200 mls/hr IVPB Q8H-IV [facility]; Protocol Last Admin: 04/10/18 09:28 Dose: 200 mls/hr Insulin Aspart (Novolog Vial Sliding Scale -) 1 vial SQ ACHS [facility]; Protocol Last Admin: 04/10/18 12:03 Dose: Not Given Insulin Detemir (Levemir Vial) 24 units SQ BID@0700,2200 [facility] Last Admin: 04/10/18 06:25 Dose: Not Given Lactobacillus Acidophilus (Bacid -) 1 tab PO DAILY [facility] Last Admin: 04/10/18 10:48 Dose: 1 tab Lisinopril (Prinivil) 10 mg PO DAILY [facility] Last Admin: 04/10/18 10:48 Dose: 10 mg Metoprolol Tartrate (Lopressor Injection -) 5 mg IVPUSH Q4H PRN PRN Reason: HYPERTENSION Metoprolol Tartrate (Lopressor -) 50 mg PO BID [facility] Last Admin: 04/10/18 10:48 Dose: 50 mg Pantoprazole Sodium (Protonix Iv) 40 mg IVPUSH BID [facility] Last Admin: 04/10/18 10:50 Dose: 40 mg Polyethylene Glycol (Miralax (For Daily Use) -) 17 gm PO DAILY [facility] Last Admin: 04/10/18 10:50 Dose: Not Given Tamsulosin HCl (Flomax -) 0.4 mg PO DAILY@0830 [facility] Last Admin: 04/10/18 10:48 Dose: 0.4 mg Zinc Oxide/Panthenol/Vitamin E (Balmex Cream -) 1 applic TP ASDIR PRN PRN Reason: HYGEINE Constitutional: Yes: NAD Eyes: Yes: WNL HENT: Yes: WNL Neck: Yes: WNL Cardiovascular: Yes: Pulse Irregular, S1, S2 Respiratory: Yes: Few scattered Rhonchi Gastrointestinal: Yes: Normal Bowel Sounds, Soft Extremities: Yes: WNL Edema: No Labs: Laboratory Results - last 24 hr 04/09/18 04/09/18 04/09/18 15:20 16:32 22:10 WBC RBC Hgb Hct MCV MCH MCHC RDW Plt Count MPV Sodium 142 Potassium 3.3 L Chloride 103 Carbon Dioxide 30 H Anion Gap 8 BUN 23 H Creatinine 1.2 Creat Clearance w eGFR > 60 POC Glucometer 281 158 Random Glucose 296 H Calcium 7.7 L Phosphorus Magnesium 04/10/18 04/10/18 04/10/18 05:27 06:35 06:35 WBC 10.6 H RBC 3.78 L Hgb 9.9 L Hct 29.8 L MCV 78.8 L MCH 26.2 MCHC 33.2 RDW 14.9 Plt Count 346 MPV 8.8 Sodium 142 Potassium 3.0 L Chloride 105 Carbon Dioxide 31 Anion Gap 7 L BUN 17 Creatinine 0.8 Creat Clearance w eGFR > 60 POC Glucometer 83 Random Glucose 118 H Calcium 7.5 L Phosphorus 3.7 Magnesium 2.1 04/10/18 11:52 WBC RBC Hgb Hct MCV MCH MCHC RDW Plt Count MPV Sodium Potassium Chloride Carbon Dioxide Anion Gap BUN Creatinine Creat Clearance w eGFR POC Glucometer 175 Random Glucose Calcium Phosphorus Magnesium Problem List - Problems (1) SONIDO (acute kidney injury) Code(s): N17.9 - ACUTE KIDNEY FAILURE, UNSPECIFIED (2) Acute respiratory failure with hypoxia Code(s): J96.01 - ACUTE RESPIRATORY FAILURE WITH HYPOXIA (3) Fever Code(s): R50.9 - FEVER, UNSPECIFIED Qualifiers: Fever type: unspecified Qualified Code(s): R50.9 - Fever, unspecified (4) Legionella pneumonia Code(s): A48.1 - LEGIONNAIRES' DISEASE (5) Sepsis Code(s): A41.9 - SEPSIS, UNSPECIFIED ORGANISM Qualifiers: Sepsis type: sepsis due to unspecified organism Qualified Code(s): A41.9 - Sepsis, unspecified organism Assessment/Plan Acute Hypoxic Respiratory Failure improved Legionella Pneumonia Severe Sepsis Acute Kidney Injury improving Lactic Acidosis ARDS Atrial Fibrillation with RVR HTN DM - antibiotics - rate control - anticoagulation - monitor urine output, creatinine - Supplemental O2 to maintain saturation - inhaled bronchodilators - PO as tolerated - DVT/GI prophylaxis Dr Stephens
--- NOTE | 2018-04-10 15:10 | PN ---
Physical Exam: SUBJECTIVE: Patient seen and examined at bedside. Resting comfortably, son at bedside. Pt denies any complaints at this time. No acute events overnight. OBJECTIVE: Vital Signs Period Temp Pulse Resp BP Sys/Santacruz Pulse Ox Last 24 Hr 97.3 F-98.2 F 64-83 16-20 132-152/70-75 88-93 GENERAL: Awake Alert NAD. HEAD: NC/AT EYES: EOMI PERRLA ENT: MMM LUNGS: Dec at bases. HEART: RRR No MRG S1 S2 ABDOMEN: Distended, NT No HSM EXTREMITIES: No CCE NEUROLOGICAL:CN 2-12 intact SKIN: Wound RLE resolving Laboratory Results - last 24 hr 04/09/18 04/09/18 04/09/18 15:20 16:32 22:10 WBC RBC Hgb Hct MCV MCH MCHC RDW Plt Count MPV Sodium 142 Potassium 3.3 L Chloride 103 Carbon Dioxide 30 H Anion Gap 8 BUN 23 H Creatinine 1.2 Creat Clearance w eGFR > 60 POC Glucometer 281 158 Random Glucose 296 H Calcium 7.7 L Phosphorus Magnesium 04/10/18 04/10/18 04/10/18 05:27 06:35 06:35 WBC 10.6 H RBC 3.78 L Hgb 9.9 L Hct 29.8 L MCV 78.8 L MCH 26.2 MCHC 33.2 RDW 14.9 Plt Count 346 MPV 8.8 Sodium 142 Potassium 3.0 L Chloride 105 Carbon Dioxide 31 Anion Gap 7 L BUN 17 Creatinine 0.8 Creat Clearance w eGFR > 60 POC Glucometer 83 Random Glucose 118 H Calcium 7.5 L Phosphorus 3.7 Magnesium 2.1 04/10/18 11:52 WBC RBC Hgb Hct MCV MCH MCHC RDW Plt Count MPV Sodium Potassium Chloride Carbon Dioxide Anion Gap BUN Creatinine Creat Clearance w eGFR POC Glucometer 175 Random Glucose Calcium Phosphorus Magnesium Active Medications Generic Name Dose Route Start Last Admin Trade Name Freq PRN Reason Stop Dose Admin Acetaminophen 650 mg 04/05/18 20:39 04/07/18 16:39 Tylenol - PO 650 mg Q6H PRN Administration PAIN LEVEL 4 - 6 Amino Acids 30 ml 04/06/18 08:00 04/10/18 10:49 Prosource No Carb Liquid Pkt PO 30 ml BID@0800,1730 [facility] Administration Amlodipine Besylate 5 mg 04/06/18 10:00 04/10/18 10:48 Norvasc - PO 5 mg DAILY [facility] Administration Apixaban 5 mg 04/09/18 22:00 04/10/18 10:48 Eliquis - PO 5 mg BID [facility] Administration Atorvastatin Calcium 10 mg 04/05/18 22:00 04/09/18 22:07 Lipitor - PO 10 mg HS [facility] Administration Ferrous Sulfate 325 mg 04/10/18 10:00 04/10/18 10:48 Feosol - PO 325 mg DAILY [facility] Administration Piperacillin Sod/Tazobactam 100 mls @ 200 mls/hr 04/08/18 02:00 04/10/18 09: 28 Sod 4.5 gm/ Dextrose IVPB 200 mls/hr Q8H-IV [facility] Administration Protocol Insulin Aspart 1 vial 04/05/18 22:00 04/10/18 12:03 Novolog Vial Sliding Scale - SQ Not Given ACHS [facility] Protocol Insulin Detemir 24 units 04/05/18 22:00 04/10/18 06:25 Levemir Vial SQ Not Given BID@0700,2200 [facility] Lactobacillus Acidophilus 1 tab 04/06/18 10:00 04/10/18 10:48 Bacid - PO 1 tab DAILY [facility] Administration Lisinopril 10 mg 04/06/18 10:00 04/10/18 10:48 Prinivil PO 10 mg DAILY [facility] Administration Metoprolol Tartrate 5 mg 04/05/18 20:39 Lopressor Injection - IVPUSH Q4H PRN HYPERTENSION Metoprolol Tartrate 50 mg 04/06/18 22:00 04/10/18 10:48 Lopressor - PO 50 mg BID [facility] Administration Pantoprazole Sodium 40 mg 04/05/18 22:00 04/10/18 10:50 Protonix Iv IVPUSH 40 mg BID [facility] Administration Polyethylene Glycol 17 gm 04/08/18 11:45 04/10/18 10:50 Miralax (For Daily Use) - PO Not Given DAILY [facility] Tamsulosin HCl 0.4 mg 04/10/18 08:30 04/10/18 10:48 Flomax - PO 0.4 mg DAILY@0830 [facility] Administration Zinc Oxide/Panthenol/Vitamin E 1 applic 04/05/18 20:39 Balmex Cream - TP ASDIR PRN HYGEINE ASSESSMENT/PLAN: Patient is a 62 year old male with history of DM, HTN, HLD presented with complaint of shortness of breath past five days. # Sepsis secondary to Pneumonia/Legionella Pneumonia -Extubated 04/04/18 -Patient received Vancomycin and Zosyn in ED -Given 1 dose 3.375 G Zosyn yesterday. Continue Zosyn 4.5 gm Q8H. s/p Levaquin 14 day tx -Lactic acidosis resolved -Infectious disease Dr Rosenbaum on board -Urine/Blood cultures negative 04/07/18 -Central line removed 03/29/18 -R Calf abscess Wound culture + for MRSA--> resolving wound -Urine Culture + for Strep Agalactiae Group B - Underwent Modified Barium Swallow 04/08/18. #Urinary Retention/ Phimosis -Changed Morataya Catheter 04/07/18 as it was not draining per nurse. -Bladder scanned and showed 900cc in bladder, morataya was replaced with a new 16 fr morataya by myself, 900cc output, bladder re-scanned with 0cc residual in bladder. -Genital examination shows phimosis and inability to retract foreskin. -Urology Consult- Spoke with Dr Dial. Will f/u as outpatient for possible elective circumcision. -Urinary retention 04/09/18, morataya re-inserted, Tamsulosin 0.4 mg daily for urinary retention # Acute respiratory failure -Likely secondary to the pneumonia -Extubated -Continue oxygen to maintain saturation >90% # Afib -Patient denies history of Afib, or any cardiac history in past. -CHADsVASC score of 2 -Lovenox 90 bid Switched to Eliquis 5 mg po bid 04/09/18 -Cardiac monitoring -Cardiology on board -Lopressor 50 mg po BID # Hypertension Lisinopril 10 mg po daily -Norvasc 5 mg po daily #IDDM -Levemir 24 U SQ BID -A1c 11.5% # FEN -No Fluids -Monitor Electrolytes -Dys chopped/nectar. Speech/Swallow: " Did well during MBS. Started on Dys chopped/nectar with good tolerance." -Prosource 30 ml po bid # Prophylaxis -Protonix 40 mg ivpush -Eliquis 5 mg po bid # Disposition -med surg Visit type - Emergency Visit Emergency Visit: Yes ED Registration Date: 03/25/18 Care time: The patient presented to the Emergency Department on the above date and was hospitalized for further evaluation of their emergent condition. - New Patient This patient is new to me today: No - Critical Care Critical Care patient: No - Discharge Referral Referred to [facility] No
--- NOTE | 2018-04-10 18:38 | PN ---
Progress Note, Physician History of Present Illness: Awake, alert today No complaints offerred Denies dyspnea/cough Temps, WBC down - Current Medication List Current Medications: Active Medications Acetaminophen (Tylenol -) 650 mg PO Q6H PRN PRN Reason: PAIN LEVEL 4 - 6 Last Admin: 04/07/18 16:39 Dose: 650 mg Amino Acids (Prosource No Carb Liquid Pkt) 30 ml PO BID@0800,1730 [facility] Last Admin: 04/10/18 17:09 Dose: 30 ml Amlodipine Besylate (Norvasc -) 5 mg PO DAILY [facility] Last Admin: 04/10/18 10:48 Dose: 5 mg Apixaban (Eliquis -) 5 mg PO BID [facility] Last Admin: 04/10/18 10:48 Dose: 5 mg Atorvastatin Calcium (Lipitor -) 10 mg PO HS [facility] Last Admin: 04/09/18 22:07 Dose: 10 mg Ferrous Sulfate (Feosol -) 325 mg PO DAILY [facility] Last Admin: 04/10/18 10:48 Dose: 325 mg Piperacillin Sod/Tazobactam (Sod 4.5 gm/ Dextrose) 100 mls @ 200 mls/hr IVPB Q8H-IV [facility]; Protocol Last Admin: 04/10/18 17:09 Dose: 200 mls/hr Insulin Aspart (Novolog Vial Sliding Scale -) 1 vial SQ ACHS [facility]; Protocol Last Admin: 04/10/18 17:08 Dose: 6 units Insulin Detemir (Levemir Vial) 24 units SQ BID@0700,2200 [facility] Last Admin: 04/10/18 06:25 Dose: Not Given Lactobacillus Acidophilus (Bacid -) 1 tab PO DAILY [facility] Last Admin: 04/10/18 10:48 Dose: 1 tab Lisinopril (Prinivil) 10 mg PO DAILY [facility] Last Admin: 04/10/18 10:48 Dose: 10 mg Metoprolol Tartrate (Lopressor Injection -) 5 mg IVPUSH Q4H PRN PRN Reason: HYPERTENSION Metoprolol Tartrate (Lopressor -) 50 mg PO BID [facility] Last Admin: 04/10/18 10:48 Dose: 50 mg Pantoprazole Sodium (Protonix Iv) 40 mg IVPUSH BID [facility] Last Admin: 04/10/18 10:50 Dose: 40 mg Polyethylene Glycol (Miralax (For Daily Use) -) 17 gm PO DAILY [facility] Last Admin: 04/10/18 10:50 Dose: Not Given Tamsulosin HCl (Flomax -) 0.4 mg PO DAILY@0830 [facility] Last Admin: 04/10/18 10:48 Dose: 0.4 mg Zinc Oxide/Panthenol/Vitamin E (Balmex Cream -) 1 applic TP ASDIR PRN PRN Reason: HYGEINE - Objective Vital Signs: Vital Signs Temperature 97.8 F 04/10/18 16:25 Pulse Rate 75 04/10/18 16:25 Respiratory Rate 18 04/10/18 16:25 Blood Pressure 149/79 04/10/18 16:25 O2 Sat by Pulse Oximetry (%) 93 L 04/10/18 10:00 Constitutional: Yes: No Distress Eyes: Yes: Conjunctiva Clear Cardiovascular: Yes: Regular Rate and Rhythm, S1, S2 Respiratory: Yes: CTA Bilaterally Gastrointestinal: Yes: Normal Bowel Sounds, Soft Edema: No Labs: CBC, BMP 04/10/18 06:35 04/10/18 06:35 INR, PTT INR 1.51 (0.83-1.09) H 03/26/18 05:13 Assessment/Plan Multilobar legionella pneumonia S/P 14d levaquin ? new asp v HCAP Respiratory failure S/P extubation Sepsis secondary to lung source Leukocytosis + Wound c/s MRSA Continue zosyn
[2018-04-10 21:10] LABS: ANION GAP 7 MMOL/L (8-16); BLOOD UREA NITROGEN 19 mg/dL (7-18); CALCIUM 7.4 mg/dL (8.5-10.1); CHLORIDE 106 mmol/L (98-107); CO2 30 mmol/L (21-32); GLUCOSE,RANDOM 177 mg/dL (74-106); POTASSIUM 3.7 mmol/L (3.5-5.1); SODIUM 142 mmol/L (136-145)
[2018-04-10] MEDS: ATORVASTATIN CA 10 MG TABLET (FP) PO SCH (21:57)
[2018-04-11] MEDS ORDERED: PIPERACILLIN/TAZOBACTAM 4.5 GM VIAL IVPB ONE ×3 (00:38→14:11)
[2018-04-11] MEDS ORDERED: DEXTROSE 5%-WATER 100 ML IVPB ONE ×3 (00:38→14:11)
[2018-04-11] MEDS: PIPERACILLIN/TAZOB 4.5 GM 4.5 GM in DEXTROSE 5%-WATER 100 ML IVPB SCH ×3 (01:18→17:00)
[2018-04-11] MEDS: INSULIN (LEVEMIR) 100 UNITS/ML UNITS SQ SCH ×2 (06:53→22:51)
[2018-04-11] MEDS: INSULIN SLIDING SCALE (NOVOLOG) 1 VIAL SQ SCH ×4 (07:20→22:50)
[2018-04-11 07:35] LABS: HEMATOCRIT 29.5 % (35.4-49); HEMOGLOBIN 9.9 GM/dL (11.7-16.9); MCH 26.5 pg (25.7-33.7); MCHC 33.7 g/dl (32.0-35.9); MEAN CELL VOLUME 78.5 fl (80-96); MEAN PLT VOLUME 8.9 fl (7.5-11.1); PLATELET COUNT 350 K/MM3 (134-434); RBC 3.75 M/mm3 (4.00-5.60); RDW 14.8 % (11.9-15.9); WHITE BLOOD COUNT 9.9 K/mm3 (4.0-10.0)
[2018-04-11 08:12] LABS: ALBUMIN 1.8 g/dl (3.4-5.0); ALK PHOS 63 U/L (45-117); ANION GAP 9 MMOL/L (8-16); BILIRUBIN,TOTAL 0.4 mg/dL (0.2-1); BLOOD UREA NITROGEN 16 mg/dL (7-18); CALCIUM 7.4 mg/dL (8.5-10.1); CHLORIDE 107 mmol/L (98-107); CO2 30 mmol/L (21-32); CREATININE 0.8 mg/dL (0.55-1.3); GLUCOSE,RANDOM 89 mg/dL (74-106); MAGNESIUM 2.1 mg/dL (1.8-2.4); PHOSPHOROUS 3.8 mg/dL (2.5-4.9); POTASSIUM 3.6 mmol/L (3.5-5.1); SGOT/AST 9 U/L (15-37); SGPT/ALT 20 U/L (13-61); SODIUM 145 mmol/L (136-145); TOT PROT 5.4 g/dl (6.4-8.2)
[2018-04-11] MEDS: TAMSULOSIN HCL 0.4 MG CAP PO SCH (08:33)
[2018-04-11] MEDS: AMINO ACIDS/PROTEIN HYDROLYS 30 ML LIQUID.PKT PO SCH ×2 (08:33→17:00)
--- NOTE | 2018-04-11 09:05 | PN ---
Progress Note (short form) - Note Progress Note: SUBJECTIVE: no issues he was eating his food, without any complaints, no fever, chills nausea or vomiting OBJECTIVE: AAOX3 S1 and S2 RRR positive bowel sounds lungs clear to auscultation no edema PERRLA ASSESSMENT AND PLAN: Patient is a 62 year old male with history of DM, HTN, HLD admitted for SIRS with sepsis 2/2 to pneumonia associated with acute hypoxemic respiratory failure s/p extubation # Sepsis secondary to Pneumonia/Legionella Pneumonia with metabolic acidosis 2 /2 lactic acid -Extubated 04/04/18 -R Calf abscess Wound culture + for MRSA -Urine Culture + for Strep Agalactiae Group B #Urinary Retention/ Phimosis -Genital examination shows phimosis and inability to retract foreskin. -Urology Consult -Urinary reention overnight 04/09/18, morataya re-inserted - Tamsulosin 0.4 mg daily for urinary retention # Acute respiratory failure resolved -Likely secondary to the pneumonia # Afib -CHADsVASC score of 2 -Apixiban 5 mg po bid -Cardiac monitoring - rate control with metoprolol 50 mg po twice a day # Hypertension Lisinopril 10 mg po daily #IDDM -Levemir 24 U SQ BID -A1c 11.5% # FEN -No Fluids -Monitor Electrolytes -Dys chopped/nectar # Prophylaxis -Eliquis 5 mg po bid
[2018-04-11] MEDS: LISINOPRIL 10 MG TABLET (FP) PO SCH (09:32)
[2018-04-11] MEDS: FERROUS SO4 325 MG TABLET (FP) PO SCH (09:32)
[2018-04-11] MEDS: amLODIPine BESYLATE 5 MG TABLET (FP) PO SCH (09:32)
[2018-04-11] MEDS: PANTOPRAZOLE SODIUM 40 MG VIAL IVPUSH SCH ×2 (09:32→22:52)
[2018-04-11] MEDS: METOPROLOL TARTRATE 50 MG TABLET (FP) PO SCH ×2 (09:32→22:51)
[2018-04-11] MEDS: LACTOBACILLUS ACIDOPHILUS 1 TABLET PO SCH (09:32)
[2018-04-11] MEDS: POLYETHYLENE GLYCOL 3350 119 GM BTL PO SCH (09:32)
[2018-04-11] MEDS: APIXABAN 5 MG TABLET PO SCH ×2 (09:32→22:52)
--- NOTE | 2018-04-11 11:56 | PN ---
Progress Note (short form) - Note Progress Note: Chief Complaint: resp failure History of Present Illness: no cp sob palps dizzy Current Medications Generic Name Dose Route Start Last Admin Trade Name Pollo PRN Reason Stop Dose Admin Acetaminophen 650 mg 04/05/18 20:39 04/07/18 16:39 Tylenol - PO 650 mg Q6H PRN Administration PAIN LEVEL 4 - 6 Amino Acids 30 ml 04/06/18 08:00 04/11/18 08:33 Prosource No Carb Liquid Pkt PO 30 ml BID@0800,1730 [facility] Administration Amlodipine Besylate 5 mg 04/06/18 10:00 04/11/18 09:32 Norvasc - PO 5 mg DAILY [facility] Administration Apixaban 5 mg 04/09/18 22:00 04/11/18 09:32 Eliquis - PO 5 mg BID [facility] Administration Atorvastatin Calcium 10 mg 04/05/18 22:00 04/10/18 21:57 Lipitor - PO 10 mg HS [facility] Administration Ferrous Sulfate 325 mg 04/10/18 10:00 04/11/18 09:32 Feosol - PO 325 mg DAILY [facility] Administration Piperacillin Sod/Tazobactam 100 mls @ 200 mls/hr 04/08/18 02:00 04/11/18 09: 32 Sod 4.5 gm/ Dextrose IVPB 200 mls/hr Q8H-IV [facility] Administration Protocol Insulin Aspart 1 vial 04/05/18 22:00 04/11/18 11:40 Novolog Vial Sliding Scale - SQ 4 units ACHS [facility] Administration Protocol Insulin Detemir 24 units 04/05/18 22:00 04/11/18 06:53 Levemir Vial SQ 24 unit BID@0700,2200 [facility] Administration Lactobacillus Acidophilus 1 tab 04/06/18 10:00 04/11/18 09:32 Bacid - PO 1 tab DAILY [facility] Administration Lisinopril 10 mg 04/06/18 10:00 04/11/18 09:32 Prinivil PO 10 mg DAILY [facility] Administration Metoprolol Tartrate 5 mg 04/05/18 20:39 Lopressor Injection - IVPUSH Q4H PRN HYPERTENSION Metoprolol Tartrate 50 mg 04/06/18 22:00 04/11/18 09:32 Lopressor - PO 50 mg BID [facility] Administration Pantoprazole Sodium 40 mg 04/05/18 22:00 04/11/18 09:32 Protonix Iv IVPUSH 40 mg BID [facility] Administration Polyethylene Glycol 17 gm 04/08/18 11:45 04/11/18 09:32 Miralax (For Daily Use) - PO Not Given DAILY [facility] Tamsulosin HCl 0.4 mg 04/10/18 08:30 04/11/18 08:33 Flomax - PO 0.4 mg DAILY@0830 [facility] Administration Zinc Oxide/Panthenol/Vitamin E 1 applic 04/05/18 20:39 Balmex Cream - TP ASDIR PRN HYGEINE - Objective Vital Signs: Vital Signs Period Temp Pulse Resp BP Sys/Santacruz Pulse Ox Last 24 Hr 97.4 F-98.8 F 65-75 16-20 136-163/72-84 93-94 Constitutional: Yes: No Distress, Calm Cardiovascular: Yes: Regular Rate and Rhythm, S1, S2, . No: Gallop, Murmur Respiratory: Yes: +rhonchi. No: Accessory Muscle Use Gastrointestinal: Yes: Normal Bowel Sounds, Soft. No: Tenderness Extremities: No: Cold Edema: No Integumentary: No: Jaundice diaphoresis Neurological:awake, confused Psychiatric: No: Agitated CBC, BMP 04/11/18 06:30 04/11/18 06:30 ct chest: b/l pna ecg: afib vr 154, no ischemic changes, nl qtc ecg 03/30 sinus, QTc 403 (stable) echo 03/18: nl LVSF. nl RV. nl LA. mild MR/TR. RVSP 30-40 tele: sinus, occ pvcs a/p: 62 m hx dm, hld, htn here with fever, leg wound. sepsis, PNA, acute resp failure: - has sahu abscess as well as b/l pna - was intubated, now extubated and transferred to floor, bp stable - lung exam improved - cont abx per ID, primary afib, rvr: -pt denies hx afib -in er started on dilt gtt and amio gtt-->sinus -cont metoprolol -chadsvasc 2 warrants ac, cont eliquis SONIDO: -bun/creat up 03/27, ? intravasc vol depletion in setting of DKA -improved with IVF htn: -cont bb, norvasc, ACEI, uptitrate meds as tolerated can dc tele
--- NOTE | 2018-04-11 13:03 | PN ---
Progress Note (short form) - Note Progress Note: Resting in NAD. No CP or SOB. No acute events overnight. Intake & Output 04/08/18 04/09/18 04/10/18 04/11/18 23:59 23:59 23:59 23:59 Intake Total 326 503 9271 720 Output Total 1000 2150 1370 1000 Balance -700 -1380 -300 -280 Last Vital Signs Temp Pulse Resp BP Pulse Ox 98.8 F 75 20 163/84 94 L 04/11/18 09:00 04/11/18 09:00 04/11/18 09:00 04/11/18 09:00 04/11/18 10:00 Active Medications Acetaminophen (Tylenol -) 650 mg PO Q6H PRN PRN Reason: PAIN LEVEL 4 - 6 Last Admin: 04/07/18 16:39 Dose: 650 mg Amino Acids (Prosource No Carb Liquid Pkt) 30 ml PO BID@0800,1730 [facility] Last Admin: 04/11/18 08:33 Dose: 30 ml Amlodipine Besylate (Norvasc -) 5 mg PO DAILY [facility] Last Admin: 04/11/18 09:32 Dose: 5 mg Apixaban (Eliquis -) 5 mg PO BID [facility] Last Admin: 04/11/18 09:32 Dose: 5 mg Atorvastatin Calcium (Lipitor -) 10 mg PO HS [facility] Last Admin: 04/10/18 21:57 Dose: 10 mg Ferrous Sulfate (Feosol -) 325 mg PO DAILY [facility] Last Admin: 04/11/18 09:32 Dose: 325 mg Piperacillin Sod/Tazobactam (Sod 4.5 gm/ Dextrose) 100 mls @ 200 mls/hr IVPB Q8H-IV [facility]; Protocol Last Admin: 04/11/18 09:32 Dose: 200 mls/hr Insulin Aspart (Novolog Vial Sliding Scale -) 1 vial SQ ACHS [facility]; Protocol Last Admin: 04/11/18 11:40 Dose: 4 units Insulin Detemir (Levemir Vial) 24 units SQ BID@0700,2200 [facility] Last Admin: 04/11/18 06:53 Dose: 24 unit Lactobacillus Acidophilus (Bacid -) 1 tab PO DAILY [facility] Last Admin: 04/11/18 09:32 Dose: 1 tab Lisinopril (Prinivil) 10 mg PO DAILY [facility] Last Admin: 04/11/18 09:32 Dose: 10 mg Metoprolol Tartrate (Lopressor Injection -) 5 mg IVPUSH Q4H PRN PRN Reason: HYPERTENSION Metoprolol Tartrate (Lopressor -) 50 mg PO BID [facility] Last Admin: 04/11/18 09:32 Dose: 50 mg Pantoprazole Sodium (Protonix Iv) 40 mg IVPUSH BID [facility] Last Admin: 04/11/18 09:32 Dose: 40 mg Polyethylene Glycol (Miralax (For Daily Use) -) 17 gm PO DAILY [facility] Last Admin: 04/11/18 09:32 Dose: Not Given Tamsulosin HCl (Flomax -) 0.4 mg PO DAILY@0830 [facility] Last Admin: 04/11/18 08:33 Dose: 0.4 mg Zinc Oxide/Panthenol/Vitamin E (Balmex Cream -) 1 applic TP ASDIR PRN PRN Reason: HYGEINE Constitutional: Yes: NAD Eyes: Yes: WNL HENT: Yes: WNL Neck: Yes: WNL Cardiovascular: Yes: Pulse Irregular, S1, S2 Respiratory: Yes: Few scattered Rhonchi Gastrointestinal: Yes: Normal Bowel Sounds, Soft Extremities: Yes: WNL Edema: No Labs: Laboratory Results - last 24 hr 04/10/18 04/10/18 04/10/18 17:07 19:40 21:14 WBC RBC Hgb Hct MCV MCH MCHC RDW Plt Count MPV Sodium 142 Potassium 3.7 Chloride 106 Carbon Dioxide 30 Anion Gap 7 L BUN 19 H Creatinine 1.0 Creat Clearance w eGFR > 60 POC Glucometer 275 277 Random Glucose 177 H Calcium 7.4 L Phosphorus Magnesium Total Bilirubin AST ALT Alkaline Phosphatase Total Protein Albumin 04/11/18 04/11/18 04/11/18 06:18 06:30 06:30 WBC 9.9 RBC 3.75 L Hgb 9.9 L Hct 29.5 L MCV 78.5 L MCH 26.5 MCHC 33.7 RDW 14.8 Plt Count 350 MPV 8.9 Sodium 145 Potassium 3.6 Chloride 107 Carbon Dioxide 30 Anion Gap 9 BUN 16 Creatinine 0.8 Creat Clearance w eGFR > 60 POC Glucometer 98 Random Glucose 89 Calcium 7.4 L Phosphorus 3.8 Magnesium 2.1 Total Bilirubin 0.4 AST 9 L ALT 20 Alkaline Phosphatase 63 Total Protein 5.4 L Albumin 1.8 L 11/11/18 11:19 WBC RBC Hgb Hct MCV MCH MCHC RDW Plt Count MPV Sodium Potassium Chloride Carbon Dioxide Anion Gap BUN Creatinine Creat Clearance w eGFR POC Glucometer 208 Random Glucose Calcium Phosphorus Magnesium Total Bilirubin AST ALT Alkaline Phosphatase Total Protein Albumin Problem List - Problems (1) SONIDO (acute kidney injury) Code(s): N17.9 - ACUTE KIDNEY FAILURE, UNSPECIFIED (2) Acute respiratory failure with hypoxia Code(s): J96.01 - ACUTE RESPIRATORY FAILURE WITH HYPOXIA (3) Fever Code(s): R50.9 - FEVER, UNSPECIFIED Qualifiers: Fever type: unspecified Qualified Code(s): R50.9 - Fever, unspecified (4) Legionella pneumonia Code(s): A48.1 - LEGIONNAIRES' DISEASE (5) Sepsis Code(s): A41.9 - SEPSIS, UNSPECIFIED ORGANISM Qualifiers: Sepsis type: sepsis due to unspecified organism Qualified Code(s): A41.9 - Sepsis, unspecified organism Assessment/Plan Acute Hypoxic Respiratory Failure improved Legionella Pneumonia Severe Sepsis Acute Kidney Injury improving Lactic Acidosis ARDS Atrial Fibrillation with RVR HTN DM - antibiotics - rate control - anticoagulation - monitor urine output, creatinine - Supplemental O2 to maintain saturation - inhaled bronchodilators - PO as tolerated - DVT/GI prophylaxis Dr Stephens
[2018-04-11] MEDS ORDERED: PT OWN MED DRAWER 7, Y5N ONE (22:24)
[2018-04-11] MEDS: ATORVASTATIN CA 10 MG TABLET (FP) PO SCH (22:51)
[2018-04-12] MEDS ORDERED: PIPERACILLIN/TAZOBACTAM 4.5 GM VIAL IVPB ONE ×3 (00:52→17:48)
[2018-04-12] MEDS ORDERED: DEXTROSE 5%-WATER 100 ML IVPB ONE ×3 (00:52→17:48)
[2018-04-12] MEDS: PIPERACILLIN/TAZOB 4.5 GM 4.5 GM in DEXTROSE 5%-WATER 100 ML IVPB SCH ×3 (01:06→17:59)
[2018-04-12] MEDS: INSULIN (LEVEMIR) 100 UNITS/ML UNITS SQ SCH ×2 (06:22→22:56)
[2018-04-12 07:42] LABS: BASO % 0.7 % (0-2.0); EOS % 7.6 % (0-4.5); HEMATOCRIT 31.3 % (35.4-49); HEMOGLOBIN 10.4 GM/dL (11.7-16.9); LYMPH % 19.8 % (8-40); MCH 26.3 pg (25.7-33.7); MCHC 33.2 g/dl (32.0-35.9); MEAN PLT VOLUME 8.8 fl (7.5-11.1); MONO % 6.7 % (3.8-10.2); NEUT % 65.2 % (42.8-82.8); PLATELET COUNT 342 K/MM3 (134-434); RBC 3.96 M/mm3 (4.00-5.60); RDW 14.6 % (11.9-15.9); WHITE BLOOD COUNT 9.6 K/mm3 (4.0-10.0)
[2018-04-12] MEDS: INSULIN SLIDING SCALE (NOVOLOG) 1 VIAL SQ SCH ×4 (07:49→22:56)
[2018-04-12 08:31] LABS: ALBUMIN 1.8 g/dl (3.4-5.0); ALK PHOS 65 U/L (45-117); ANION GAP 7 MMOL/L (8-16); BILIRUBIN,TOTAL 0.5 mg/dL (0.2-1); BLOOD UREA NITROGEN 14 mg/dL (7-18); CALCIUM 7.6 mg/dL (8.5-10.1); CHLORIDE 105 mmol/L (98-107); CO2 30 mmol/L (21-32); CREATININE 0.8 mg/dL (0.55-1.3); GLUCOSE,RANDOM 85 mg/dL (74-106); POTASSIUM 3.7 mmol/L (3.5-5.1); SGOT/AST 8 U/L (15-37); SGPT/ALT 19 U/L (13-61); SODIUM 142 mmol/L (136-145); TOT PROT 5.6 g/dl (6.4-8.2)
[2018-04-12] MEDS: LACTOBACILLUS ACIDOPHILUS 1 TABLET PO SCH (09:10)
[2018-04-12] MEDS: PANTOPRAZOLE SODIUM 40 MG VIAL IVPUSH SCH (09:11)
[2018-04-12] MEDS: LISINOPRIL 10 MG TABLET (FP) PO SCH (09:11)
[2018-04-12] MEDS: amLODIPine BESYLATE 5 MG TABLET (FP) PO SCH (09:11)
[2018-04-12] MEDS: TAMSULOSIN HCL 0.4 MG CAP PO SCH (09:11)
[2018-04-12] MEDS: APIXABAN 5 MG TABLET PO SCH ×2 (09:11→22:56)
[2018-04-12] MEDS: FERROUS SO4 325 MG TABLET (FP) PO SCH (09:11)
[2018-04-12] MEDS: AMINO ACIDS/PROTEIN HYDROLYS 30 ML LIQUID.PKT PO SCH ×2 (09:11→18:00)
[2018-04-12] MEDS: METOPROLOL TARTRATE 50 MG TABLET (FP) PO SCH ×2 (09:11→22:56)
[2018-04-12] MEDS: POLYETHYLENE GLYCOL 3350 119 GM BTL PO SCH (09:12)
--- NOTE | 2018-04-12 09:25 | PN ---
Physical Exam: SUBJECTIVE: Patient seen and examined at bedside today. No acute events overnight. Resting in bed comfortably. Urinary retention, morataya inserted, draining over 700cc urine. OBJECTIVE: Vital Signs Period Temp Pulse Resp BP Sys/Santacruz Pulse Ox Last 24 Hr 97.3 F-98.1 F 65-76 18-20 143-152/78-83 94-95 GENERAL: NAD HEAD: NC/AT EYES: PERRL EOMI ENT:MMM. NECK: Trachea midline, full range of motion, supple. LUNGS: Dec breath sounds at bases HEART: RRR ABDOMEN: NDNT No HSM EXTREMITIES: 1 + edema Laboratory Results - last 24 hr 04/11/18 04/11/18 04/11/18 11:19 16:47 22:39 WBC RBC Hgb Hct MCV MCH MCHC RDW Plt Count MPV Absolute Neuts (auto) Neutrophils % Lymphocytes % Monocytes % Eosinophils % Basophils % Nucleated RBC % Sodium Potassium Chloride Carbon Dioxide Anion Gap BUN Creatinine Creat Clearance w eGFR POC Glucometer 208 197 311 Random Glucose Calcium Total Bilirubin AST ALT Alkaline Phosphatase Total Protein Albumin 04/12/18 04/12/18 04/12/18 05:45 05:45 05:47 WBC 9.6 RBC 3.96 L Hgb 10.4 L Hct 31.3 L MCV 79.0 L MCH 26.3 MCHC 33.2 RDW 14.6 Plt Count 342 MPV 8.8 Absolute Neuts (auto) 6.3 Neutrophils % 65.2 Lymphocytes % 19.8 D Monocytes % 6.7 Eosinophils % 7.6 H D Basophils % 0.7 Nucleated RBC % 0 Sodium 142 Potassium 3.7 Chloride 105 Carbon Dioxide 30 Anion Gap 7 L BUN 14 Creatinine 0.8 Creat Clearance w eGFR > 60 POC Glucometer 107 Random Glucose 85 Calcium 7.6 L Total Bilirubin 0.5 AST 8 L ALT 19 Alkaline Phosphatase 65 Total Protein 5.6 L Albumin 1.8 L Active Medications Generic Name Dose Route Start Last Admin Trade Name Freq PRN Reason Stop Dose Admin Acetaminophen 650 mg 04/05/18 20:39 04/07/18 16:39 Tylenol - PO 650 mg Q6H PRN Administration PAIN LEVEL 4 - 6 Amino Acids 30 ml 04/06/18 08:00 04/12/18 09:11 Prosource No Carb Liquid Pkt PO 30 ml BID@0800,1730 [facility] Administration Amlodipine Besylate 5 mg 04/06/18 10:00 04/12/18 09:11 Norvasc - PO 5 mg DAILY [facility] Administration Apixaban 5 mg 04/09/18 22:00 04/12/18 09:11 Eliquis - PO 5 mg BID [facility] Administration Atorvastatin Calcium 10 mg 04/05/18 22:00 04/11/18 22:51 Lipitor - PO 10 mg HS [facility] Administration Ferrous Sulfate 325 mg 04/10/18 10:00 04/12/18 09:11 Feosol - PO 325 mg DAILY [facility] Administration Piperacillin Sod/Tazobactam 100 mls @ 200 mls/hr 04/08/18 02:00 04/12/18 09: 11 Sod 4.5 gm/ Dextrose IVPB 200 mls/hr Q8H-IV [facility] Administration Protocol Insulin Aspart 1 vial 04/05/18 22:00 04/11/18 22:50 Novolog Vial Sliding Scale - SQ 8 units ACHS [facility] Administration Protocol Insulin Detemir 24 units 04/05/18 22:00 04/12/18 06:22 Levemir Vial SQ 24 unit BID@0700,2200 [facility] Administration Lactobacillus Acidophilus 1 tab 04/06/18 10:00 04/12/18 09:10 Bacid - PO 1 tab DAILY [facility] Administration Lisinopril 10 mg 04/06/18 10:00 04/12/18 09:11 Prinivil PO 10 mg DAILY [facility] Administration Metoprolol Tartrate 5 mg 04/05/18 20:39 Lopressor Injection - IVPUSH Q4H PRN HYPERTENSION Metoprolol Tartrate 50 mg 04/06/18 22:00 04/12/18 09:11 Lopressor - PO 50 mg BID [facility] Administration Pantoprazole Sodium 40 mg 04/05/18 22:00 04/12/18 09:11 Protonix Iv IVPUSH 40 mg BID [facility] Administration Polyethylene Glycol 17 gm 04/08/18 11:45 04/12/18 09:12 Miralax (For Daily Use) - PO 17 grams DAILY [facility] Administration Tamsulosin HCl 0.4 mg 04/10/18 08:30 04/12/18 09:11 Flomax - PO 0.4 mg DAILY@0830 [facility] Administration Zinc Oxide/Panthenol/Vitamin E 1 applic 04/05/18 20:39 Balmex Cream - TP ASDIR PRN HYGEINE ASSESSMENT/PLAN: Patient is a 62 year old male with history of DM, HTN, HLD presented with complaint of shortness of breath past five days. # Sepsis secondary to Pneumonia/Legionella Pneumonia -Extubated 04/04/18 -Patient received Vancomycin and Zosyn in ED -Given 1 dose 3.375 G Zosyn. s/p Levaquin 14 day tx. Currently on Zosyn day 5. Per ID, will switch to Augmentin within next 24 hours. -Lactic acidosis resolved -Infectious disease Dr Rosenbaum on board -Urine/Blood cultures negative 04/07/18 -Central line removed 03/29/18 -R Calf abscess Wound culture + for MRSA--> resolving wound -Urine Culture + for Strep Agalactiae Group B - Underwent Modified Barium Swallow 04/08/18. #Urinary Retention/ Phimosis -Changed Morataya Catheter 04/07/18 as it was not draining per nurse. -Bladder scanned and showed 900cc in bladder, morataya was replaced with a new 16 fr morataya by myself, 900cc output, bladder re-scanned with 0cc residual in bladder. -Genital examination shows phimosis and inability to retract foreskin. -Urology Consult- Spoke with Dr Dial. Will f/u as outpatient for possible elective circumcision. -Urinary retention 04/09/18, morataya re-inserted, Tamsulosin 0.4 mg daily for urinary retention -Urinary retention 04/12/18--morataya inserted draining over 700 cc urine # Acute respiratory failure -Likely secondary to the pneumonia -Extubated -Continue oxygen to maintain saturation >90% # Afib -Patient denies history of Afib, or any cardiac history in past. -CHADsVASC score of 2 -Lovenox 90 bid Switched to Eliquis 5 mg po bid 04/09/18 -Cardiac monitoring -Cardiology on board -Lopressor 50 mg po BID # Hypertension Lisinopril 10 mg po daily --> will increase as pt's BP has been in hypertensive ranges. -Norvasc 5 mg po daily #IDDM -Levemir 24 U SQ BID -A1c 11.5% # FEN -No Fluids -Monitor Electrolytes -Dys chopped/nectar. Speech/Swallow: " Did well during MBS. Started on Dys chopped/nectar with good tolerance." -Prosource 30 ml po bid # Prophylaxis -Protonix 40 mg ivpush -Eliquis 5 mg po bid # Disposition -med surg Visit type - Emergency Visit Emergency Visit: Yes ED Registration Date: 03/25/18 Care time: The patient presented to the Emergency Department on the above date and was hospitalized for further evaluation of their emergent condition. - New Patient This patient is new to me today: No - Critical Care Critical Care patient: No - Discharge Referral Referred to [facility] Med [facility].C[facility] No
--- NOTE | 2018-04-12 12:01 | PN ---
Progress Note, Physician History of Present Illness: pulmonary alert,no distress,-cp,-sob - Current Medication List Current Medications: Active Medications Acetaminophen (Tylenol -) 650 mg PO Q6H PRN PRN Reason: PAIN LEVEL 4 - 6 Last Admin: 04/07/18 16:39 Dose: 650 mg Amino Acids (Prosource No Carb Liquid Pkt) 30 ml PO BID@0800,1730 [facility] Last Admin: 04/12/18 09:11 Dose: 30 ml Amlodipine Besylate (Norvasc -) 5 mg PO DAILY [facility] Last Admin: 04/12/18 09:11 Dose: 5 mg Apixaban (Eliquis -) 5 mg PO BID [facility] Last Admin: 04/12/18 09:11 Dose: 5 mg Atorvastatin Calcium (Lipitor -) 10 mg PO HS [facility] Last Admin: 04/11/18 22:51 Dose: 10 mg Ferrous Sulfate (Feosol -) 325 mg PO DAILY [facility] Last Admin: 04/12/18 09:11 Dose: 325 mg Piperacillin Sod/Tazobactam (Sod 4.5 gm/ Dextrose) 100 mls @ 200 mls/hr IVPB Q8H-IV [facility]; Protocol Last Admin: 04/12/18 09:11 Dose: 200 mls/hr Insulin Aspart (Novolog Vial Sliding Scale -) 1 vial SQ ACHS [facility]; Protocol Last Admin: 04/12/18 11:50 Dose: 4 units Insulin Detemir (Levemir Vial) 24 units SQ BID@0700,2200 [facility] Last Admin: 04/12/18 06:22 Dose: 24 unit Lactobacillus Acidophilus (Bacid -) 1 tab PO DAILY [facility] Last Admin: 04/12/18 09:10 Dose: 1 tab Lisinopril (Prinivil) 10 mg PO DAILY [facility] Last Admin: 04/12/18 09:11 Dose: 10 mg Metoprolol Tartrate (Lopressor Injection -) 5 mg IVPUSH Q4H PRN PRN Reason: HYPERTENSION Metoprolol Tartrate (Lopressor -) 50 mg PO BID [facility] Last Admin: 04/12/18 09:11 Dose: 50 mg Pantoprazole Sodium (Protonix Iv) 40 mg IVPUSH BID [facility] Last Admin: 04/12/18 09:11 Dose: 40 mg Polyethylene Glycol (Miralax (For Daily Use) -) 17 gm PO DAILY [facility] Last Admin: 04/12/18 09:12 Dose: 17 grams Tamsulosin HCl (Flomax -) 0.4 mg PO DAILY@0830 [facility] Last Admin: 04/12/18 09:11 Dose: 0.4 mg Zinc Oxide/Panthenol/Vitamin E (Balmex Cream -) 1 applic TP ASDIR PRN PRN Reason: HYGEINE - Objective Vital Signs: Vital Signs Temperature 97.7 F 04/12/18 09:00 Pulse Rate 78 04/12/18 09:00 Respiratory Rate 18 04/12/18 09:00 Blood Pressure 171/77 H 04/12/18 09:00 O2 Sat by Pulse Oximetry (%) 90 L 04/12/18 10:00 Constitutional: Yes: Well Nourished, Calm Eyes: Yes: WNL HENT: Yes: WNL Neck: Yes: WNL Cardiovascular: Yes: Pulse Irregular, S1, S2 Respiratory: Yes: Diminished Gastrointestinal: Yes: Normal Bowel Sounds, Soft Extremities: Yes: WNL Edema: No Labs: CBC, BMP 04/12/18 05:45 04/12/18 05:45 INR, PTT INR 1.51 (0.83-1.09) H 03/26/18 05:13 Problem List - Problems (1) SONIDO (acute kidney injury) Code(s): N17.9 - ACUTE KIDNEY FAILURE, UNSPECIFIED (2) Acute respiratory failure with hypoxia Code(s): J96.01 - ACUTE RESPIRATORY FAILURE WITH HYPOXIA (3) Fever Code(s): R50.9 - FEVER, UNSPECIFIED Qualifiers: Fever type: unspecified Qualified Code(s): R50.9 - Fever, unspecified (4) Legionella pneumonia Code(s): A48.1 - LEGIONNAIRES' DISEASE (5) Sepsis Code(s): A41.9 - SEPSIS, UNSPECIFIED ORGANISM Qualifiers: Sepsis type: sepsis due to unspecified organism Qualified Code(s): A41.9 - Sepsis, unspecified organism Assessment/Plan ASSESSMENT AND PLAN: Acute Hypoxic Respiratory Failure improved Legionella Pneumonia Severe Sepsis Acute Kidney Injury improving Lactic Acidosis ARDS Atrial Fibrillation with RVR HTN DM - antibiotics as per id - rate control - anticoagulation - monitor urine output, creatinine - Supplemental O2 to maintain saturation - inhaled bronchodilators - PO as tolerated - DVT/GI prophylaxis DR BOWERS
--- NOTE | 2018-04-12 12:47 | PN ---
Progress Note, OIL PIPE INSPECTOR - Note Progress Note: Selected Entries 04/11/18 04/11/18 04/11/18 01:58 05:00 09:00 Breakfast Lunch Supper Temperature 97.4 F L 97.8 F 98.8 F 04/11/18 04/11/18 04/11/18 09:51 14:10 16:25 Breakfast 100% Lunch 100% Supper Temperature 98.1 F 97.7 F 04/11/18 04/11/18 04/12/18 21:00 23:17 01:00 Breakfast Lunch Supper 100% Temperature 97.7 F 97.7 F 04/12/18 04/12/18 04/12/18 05:00 08:35 09:00 Breakfast 100% Lunch Supper Temperature 97.3 F L 97.7 F Laboratory Tests 04/11/18 04/12/18 06:30 05:45 WBC 9.9 9.6 Pt on Dys chopped/nectar with good tolerance. Suggest :Mouth care before meals. OOB for meals, Reg chopped, add tuna, egg salad, fish, and 1-2 soft, easy to chew foods per tray and thin water.
--- NOTE | 2018-04-12 12:48 | PN ---
Teaching Attending Note Name of Resident: Joe Larkin ATTENDING PHYSICIAN STATEMENT I saw and evaluated the patient. I reviewed the resident's note and discussed the case with the resident. I agree with the resident's findings and plan as documented. SUBJECTIVE:continues to have cough intermittently with white sputum. denies CP, SOB, fever, chills, N/V/C/D OBJECTIVE: Last Vital Signs Temp Pulse Resp BP Pulse Ox 97.7 F 78 18 171/77 H 90 L 04/12/18 09:00 04/12/18 09:00 04/12/18 09:00 04/12/18 09:00 04/12/18 10:00 General NAD CV S1 S2 RRR no murmur/rub/gallop Lungs CTA B/L no wheezing/rales/rhonchi abdomen soft NT/ND obese Extremities no pedal edema ASSESSMENT AND PLAN: 62 Y/O M with PMHx uncontrolled DM, HTN, HLD P/W SOB for 5 days, found to be in hypoxic respiratory failure and sepsis due to PNA, intubated for hypoxic respiratory failure, newly dxed Afib. 1. Acute Hypoxic respiratory failure- due to multilobar PNA. s/p extubation 06/05. saturating well on RA. incentive spirometer, chest PT 2. sepsis due to Multi-lobar PNA- +legionella. with complication for development of liekly aspiration PNA. compelted course of levaquin and currently on Zosyn day 5. clinically improved. will d/w ID about duration. ID on board 3. MRSA wound infection- completed abx course. cont local wound care 4. Afib with RVR- new onset. currently in NSR. rate controlled. on eliquis. cardio on board. 5. Prolonged Qtc- avoid QT prolonging agents. now resolved. 6. DM-A1c 11.5. improved here will need insulin on discharge. titrate levemir to optimize control. ISS and BGM. 7. SONIDO- due to hypoperfusion. resolved. avoid nephrotoxic agents 8. HTN- above goal. increase lisinopril. titrate medications 9. DVT ppx- eliquis 10. PT 5 feet. will need MELLO on discharge. CM to send EDIS
[2018-04-12] MEDS ORDERED: LISINOPRIL 10 MG TABLET (FP) PO ONE (13:15)
--- NOTE | 2018-04-12 14:29 | PN ---
Progress Note, Physician History of Present Illness: Awake, alert No complaints offerred Appears comfortable at rest on nasal cannula Denies dyspnea/cough Temps, WBC down Sputum c/s normal mauricio CXR diffuse airspace disease - Current Medication List Current Medications: Active Medications Acetaminophen (Tylenol -) 650 mg PO Q6H PRN PRN Reason: PAIN LEVEL 4 - 6 Last Admin: 04/07/18 16:39 Dose: 650 mg Amino Acids (Prosource No Carb Liquid Pkt) 30 ml PO BID@0800,1730 [facility] Last Admin: 04/12/18 09:11 Dose: 30 ml Amlodipine Besylate (Norvasc -) 5 mg PO DAILY [facility] Last Admin: 04/12/18 09:11 Dose: 5 mg Apixaban (Eliquis -) 5 mg PO BID [facility] Last Admin: 04/12/18 09:11 Dose: 5 mg Atorvastatin Calcium (Lipitor -) 10 mg PO HS [facility] Last Admin: 04/11/18 22:51 Dose: 10 mg Ferrous Sulfate (Feosol -) 325 mg PO DAILY [facility] Last Admin: 04/12/18 09:11 Dose: 325 mg Piperacillin Sod/Tazobactam (Sod 4.5 gm/ Dextrose) 100 mls @ 200 mls/hr IVPB Q8H-IV [facility]; Protocol Last Admin: 04/12/18 09:11 Dose: 200 mls/hr Insulin Aspart (Novolog Vial Sliding Scale -) 1 vial SQ ACHS [facility]; Protocol Last Admin: 04/12/18 11:50 Dose: 4 units Insulin Detemir (Levemir Vial) 24 units SQ BID@0700,2200 [facility] Last Admin: 04/12/18 06:22 Dose: 24 unit Lactobacillus Acidophilus (Bacid -) 1 tab PO DAILY [facility] Last Admin: 04/12/18 09:10 Dose: 1 tab Lisinopril (Prinivil) 20 mg PO DAILY [facility] Metoprolol Tartrate (Lopressor Injection -) 5 mg IVPUSH Q4H PRN PRN Reason: HYPERTENSION Metoprolol Tartrate (Lopressor -) 50 mg PO BID [facility] Last Admin: 04/12/18 09:11 Dose: 50 mg Polyethylene Glycol (Miralax (For Daily Use) -) 17 gm PO DAILY [facility] Last Admin: 04/12/18 09:12 Dose: 17 grams Tamsulosin HCl (Flomax -) 0.4 mg PO DAILY@0830 [facility] Last Admin: 04/12/18 09:11 Dose: 0.4 mg Zinc Oxide/Panthenol/Vitamin E (Balmex Cream -) 1 applic TP ASDIR PRN PRN Reason: HYGEINE - Objective Vital Signs: Vital Signs Temperature 98.0 F 04/12/18 13:10 Pulse Rate 72 04/12/18 13:10 Respiratory Rate 18 04/12/18 13:10 Blood Pressure 168/91 04/12/18 13:10 O2 Sat by Pulse Oximetry (%) 90 L 04/12/18 10:00 Constitutional: Yes: No Distress Eyes: Yes: Conjunctiva Clear Cardiovascular: Yes: Regular Rate and Rhythm, S1, S2 Respiratory: Yes: Other (few crepitations L base) Gastrointestinal: Yes: Normal Bowel Sounds, Soft. No: Tenderness Edema: No Labs: CBC, BMP 04/12/18 05:45 04/12/18 05:45 INR, PTT INR 1.51 (0.83-1.09) H 03/26/18 05:13 Assessment/Plan Multilobar legionella pneumonia S/P 14d levaquin ? new asp v HCAP Respiratory failure S/P extubation Sepsis secondary to lung source Leukocytosis resolved + Wound c/s MRSA Continue zosyn Switch to po Augmentin next 24hr
--- NOTE | 2018-04-12 14:41 | PN ---
Progress Note (short form) - Note Progress Note: Chief Complaint: resp failure History of Present Illness: no cp sob palps dizzy, feeling better Current Medications Acetaminophen (Tylenol -) 650 mg PO Q6H PRN PRN Reason: PAIN LEVEL 4 - 6 Last Admin: 04/07/18 16:39 Dose: 650 mg Amino Acids (Prosource No Carb Liquid Pkt) 30 ml PO BID@0800,1730 [facility] Last Admin: 04/12/18 09:11 Dose: 30 ml Amlodipine Besylate (Norvasc -) 5 mg PO DAILY [facility] Last Admin: 04/12/18 09:11 Dose: 5 mg Apixaban (Eliquis -) 5 mg PO BID [facility] Last Admin: 04/12/18 09:11 Dose: 5 mg Atorvastatin Calcium (Lipitor -) 10 mg PO HS [facility] Last Admin: 04/11/18 22:51 Dose: 10 mg Ferrous Sulfate (Feosol -) 325 mg PO DAILY [facility] Last Admin: 04/12/18 09:11 Dose: 325 mg Piperacillin Sod/Tazobactam (Sod 4.5 gm/ Dextrose) 100 mls @ 200 mls/hr IVPB Q8H-IV [facility]; Protocol Last Admin: 04/12/18 09:11 Dose: 200 mls/hr Insulin Aspart (Novolog Vial Sliding Scale -) 1 vial SQ ACHS [facility]; Protocol Last Admin: 04/12/18 11:50 Dose: 4 units Insulin Detemir (Levemir Vial) 24 units SQ BID@0700,2200 [facility] Last Admin: 04/12/18 06:22 Dose: 24 unit Lactobacillus Acidophilus (Bacid -) 1 tab PO DAILY [facility] Last Admin: 04/12/18 09:10 Dose: 1 tab Lisinopril (Prinivil) 20 mg PO DAILY [facility] Metoprolol Tartrate (Lopressor Injection -) 5 mg IVPUSH Q4H PRN PRN Reason: HYPERTENSION Metoprolol Tartrate (Lopressor -) 50 mg PO BID [facility] Last Admin: 04/12/18 09:11 Dose: 50 mg Polyethylene Glycol (Miralax (For Daily Use) -) 17 gm PO DAILY [facility] Last Admin: 04/12/18 09:12 Dose: 17 grams Tamsulosin HCl (Flomax -) 0.4 mg PO DAILY@0830 [facility] Last Admin: 04/12/18 09:11 Dose: 0.4 mg Zinc Oxide/Panthenol/Vitamin E (Balmex Cream -) 1 applic TP ASDIR PRN PRN Reason: HYGEINE - Objective Vital Signs: Vital Signs Period Temp Pulse Resp BP Sys/Santacruz Pulse Ox Last 24 Hr 97.4 F-98.8 F 65-75 16-20 136-163/72-84 93-94 Constitutional: Yes: No Distress, Calm Cardiovascular: Yes: Regular Rate and Rhythm, S1, S2, . No: Gallop, Murmur Respiratory: Yes: +rhonchi. No: Accessory Muscle Use Gastrointestinal: Yes: Normal Bowel Sounds, Soft. No: Tenderness Extremities: No: Cold Edema: No Integumentary: No: Jaundice diaphoresis Neurological:awake, confused Psychiatric: No: Agitated CBC, BMP 04/11/18 06:30 04/11/18 06:30 ct chest: b/l pna ecg: afib vr 154, no ischemic changes, nl qtc ecg 03/30 sinus, QTc 403 (stable) echo 03/18: nl LVSF. nl RV. nl LA. mild MR/TR. RVSP 30-40 a/p: 62 m hx dm, hld, htn here with fever, leg wound. sepsis, PNA, acute resp failure: - has sahu abscess as well as b/l pna - was intubated, now extubated and transferred to floor, bp stable - lung exam improved, no dyspnea - cont abx per ID, primary afib, rvr: -pt denies hx afib -in er started on dilt gtt and amio gtt-->sinus -cont metoprolol -chadsvasc 2 warrants ac, cont eliquis SONIDO: -bun/creat up 03/27, ? intravasc vol depletion in setting of DKA -improved with IVF htn: -cont bb, norvasc, ACEI, uptitrate meds as tolerated stable from cardiac perspective
[2018-04-12] MEDS: ATORVASTATIN CA 10 MG TABLET (FP) PO SCH (22:56)
[2018-04-13] MEDS ORDERED: PIPERACILLIN/TAZOBACTAM 4.5 GM VIAL IVPB ONE ×2 (01:15→09:19)
[2018-04-13] MEDS ORDERED: DEXTROSE 5%-WATER 100 ML IVPB ONE ×2 (01:16→09:19)
[2018-04-13] MEDS: PIPERACILLIN/TAZOB 4.5 GM 4.5 GM in DEXTROSE 5%-WATER 100 ML IVPB SCH ×2 (01:44→09:25)
[2018-04-13] MEDS: INSULIN (LEVEMIR) 100 UNITS/ML UNITS SQ SCH ×2 (06:00→21:25)
[2018-04-13] MEDS: INSULIN SLIDING SCALE (NOVOLOG) 1 VIAL SQ SCH ×4 (06:00→21:25)
[2018-04-13] MEDS ORDERED: INSULIN (LEVEMIR) 100 UNITS/ML UNITS SQ ONE (06:59)
[2018-04-13] MEDS ORDERED: INSULIN SLIDING SCALE (NOVOLOG) 1 VIAL SQ ONE (06:59)
[2018-04-13] MEDS: APIXABAN 5 MG TABLET PO SCH ×2 (09:24→21:25)
[2018-04-13] MEDS: METOPROLOL TARTRATE 50 MG TABLET (FP) PO SCH ×2 (09:24→21:25)
[2018-04-13] MEDS: TAMSULOSIN HCL 0.4 MG CAP PO SCH (09:24)
[2018-04-13] MEDS: amLODIPine BESYLATE 5 MG TABLET (FP) PO SCH (09:24)
[2018-04-13] MEDS: FERROUS SO4 325 MG TABLET (FP) PO SCH (09:24)
[2018-04-13] MEDS: AMINO ACIDS/PROTEIN HYDROLYS 30 ML LIQUID.PKT PO SCH ×2 (09:25→16:58)
[2018-04-13] MEDS: LISINOPRIL 10 MG TABLET (FP) PO SCH (09:25)
[2018-04-13] MEDS: POLYETHYLENE GLYCOL 3350 119 GM BTL PO SCH (09:25)
[2018-04-13] MEDS: LACTOBACILLUS ACIDOPHILUS 1 TABLET PO SCH (09:25)
--- NOTE | 2018-04-13 11:22 | PN ---
Teaching Attending Note Name of Resident: Joe Larkin ATTENDING PHYSICIAN STATEMENT I saw and evaluated the patient. I reviewed the resident's note and discussed the case with the resident. I agree with the resident's findings and plan as documented. SUBJECTIVE:asymptomatic. states breathing is better today. denies Cp, SOB, fever , chills, N/V/C/D OBJECTIVE: Last Vital Signs Temp Pulse Resp BP Pulse Ox 98.3 F 77 20 167/74 96 04/13/18 09:19 04/13/18 09:19 04/13/18 09:19 04/13/18 09:19 04/13/18 09:19 General NAD CV S1 S2 RRR no murmur/rub/gallop Lungs CTA B/L no wheezing/rales/rhonchi abdomen soft NT/ND obese Extremities no pedal edema ASSESSMENT AND PLAN: 62 Y/O M with PMHx uncontrolled DM, HTN, HLD P/W SOB for 5 days, found to be in hypoxic respiratory failure and sepsis due to PNA, intubated for hypoxic respiratory failure, newly dxed Afib. 1. Acute Hypoxic respiratory failure- due to multilobar PNA. s/p extubation 06/05. currently 84% on RA requiring 4L NC to bring SpO2 >90%. will check pre and post as likely require supplemental oxygen. incentive spirometer, chest PT 2. sepsis due to Multi-lobar PNA- +legionella. with complication for development of likely aspiration PNA. competed course of levaquin and currently on Zosyn day 5. plan to switch to augmentin today. ID on board 3. MRSA wound infection- completed abx course. cont local wound care 4. Afib with RVR- new onset. currently in NSR. rate controlled. on eliquis. cardio on board. 5. Prolonged Qtc- avoid QT prolonging agents. now resolved. 6. DM-A1c 11.5. improved here will need insulin on discharge. titrate levemir to optimize control. ISS and BGM. 7. SONIDO- due to hypoperfusion. resolved. avoid nephrotoxic agents 8. HTN- above goal. increase lisinopril. titrate medications 9. DVT ppx- eliquis 10. medically optimized for discharge. awaiting bed availability at [facility]
--- NOTE | 2018-04-13 11:32 | PN ---
Progress Note (short form) - Note Progress Note: Chief Complaint: resp failure History of Present Illness: no cp sob palps dizzy Current Medications Generic Name Dose Route Start Last Admin Trade Name Darenq PRN Reason Stop Dose Admin Acetaminophen 650 mg 04/05/18 20:39 04/07/18 16:39 Tylenol - PO 650 mg Q6H PRN Administration PAIN LEVEL 4 - 6 Amino Acids 30 ml 04/06/18 08:00 04/13/18 09:25 Prosource No Carb Liquid Pkt PO 30 ml BID@0800,1730 [facility] Administration Amlodipine Besylate 5 mg 04/06/18 10:00 04/13/18 09:24 Norvasc - PO 5 mg DAILY [facility] Administration Apixaban 5 mg 04/09/18 22:00 04/13/18 09:24 Eliquis - PO 5 mg BID [facility] Administration Atorvastatin Calcium 10 mg 04/05/18 22:00 04/12/18 22:56 Lipitor - PO 10 mg HS [facility] Administration Ferrous Sulfate 325 mg 04/10/18 10:00 04/13/18 09:24 Feosol - PO 325 mg DAILY [facility] Administration Piperacillin Sod/Tazobactam 100 mls @ 200 mls/hr 04/08/18 02:00 04/13/18 09: 25 Sod 4.5 gm/ Dextrose IVPB 200 mls/hr Q8H-IV [facility] Administration Protocol Insulin Aspart 1 vial 04/05/18 22:00 04/13/18 11:24 Novolog Vial Sliding Scale - SQ 4 units ACHS [facility] Administration Protocol Insulin Detemir 24 units 04/05/18 22:00 04/13/18 06:00 Levemir Vial SQ Not Given BID@0700,2200 [facility] Lactobacillus Acidophilus 1 tab 04/06/18 10:00 04/13/18 09:25 Bacid - PO 1 tab DAILY [facility] Administration Lisinopril 20 mg 04/12/18 12:47 04/13/18 09:25 Prinivil PO 20 mg DAILY [facility] Administration Metoprolol Tartrate 5 mg 04/05/18 20:39 Lopressor Injection - IVPUSH Q4H PRN HYPERTENSION Metoprolol Tartrate 50 mg 04/06/18 22:00 04/13/18 09:24 Lopressor - PO 50 mg BID [facility] Administration Polyethylene Glycol 17 gm 04/08/18 11:45 04/13/18 09:25 Miralax (For Daily Use) - PO 17 grams DAILY [facility] Administration Tamsulosin HCl 0.4 mg 04/10/18 08:30 04/13/18 09:24 Flomax - PO 0.4 mg DAILY@0830 [facility] Administration Zinc Oxide/Panthenol/Vitamin E 1 applic 04/05/18 20:39 Balmex Cream - TP ASDIR PRN HYGEINE - Objective Vital Signs: Vital Signs Period Temp Pulse Resp BP Sys/Santacruz Pulse Ox Last 24 Hr 97.3 F-98.3 F 62-77 18-20 113-168/62-91 96-96 Constitutional: Yes: No Distress, Calm Cardiovascular: Yes: Regular Rate and Rhythm, S1, S2, . No: Gallop, Murmur Respiratory: Yes: +rhonchi. No: Accessory Muscle Use Gastrointestinal: Yes: Normal Bowel Sounds, Soft. No: Tenderness Extremities: No: Cold Edema: No Integumentary: No: Jaundice diaphoresis Neurological:awake alert appropriate Psychiatric: No: Agitated CBC, BMP 04/12/18 05:45 04/12/18 05:45 ct chest: b/l pna ecg: afib vr 154, no ischemic changes, nl qtc ecg 03/30 sinus, QTc 403 (stable) echo 03/18: nl LVSF. nl RV. nl LA. mild MR/TR. RVSP 30-40 tele: sinus a/p: 62 m hx dm, hld, htn here with fever, leg wound. sepsis, PNA, acute resp failure: - has sahu abscess as well as b/l pna - was intubated, now extubated and transferred to floor, bp stable - lung exam improved - cont abx per ID, primary afib, rvr: -pt denies hx afib -in er started on dilt gtt and amio gtt-->sinus -cont metoprolol -chadsvasc 2 warrants ac, cont eliquis SONIDO: -bun/creat up 03/27, ? intravasc vol depletion in setting of DKA -improved with IVF htn: -cont bb, norvasc, ACEI, uptitrate meds as tolerated can dc tele
--- NOTE | 2018-04-13 11:59 | PN ---
Progress Note, Physician History of Present Illness: pulmonary alert,no distress,-sob - Current Medication List Current Medications: Active Medications Acetaminophen (Tylenol -) 650 mg PO Q6H PRN PRN Reason: PAIN LEVEL 4 - 6 Last Admin: 04/07/18 16:39 Dose: 650 mg Amino Acids (Prosource No Carb Liquid Pkt) 30 ml PO BID@0800,1730 [facility] Last Admin: 04/13/18 09:25 Dose: 30 ml Amlodipine Besylate (Norvasc -) 5 mg PO DAILY [facility] Last Admin: 04/13/18 09:24 Dose: 5 mg Apixaban (Eliquis -) 5 mg PO BID [facility] Last Admin: 04/13/18 09:24 Dose: 5 mg Atorvastatin Calcium (Lipitor -) 10 mg PO HS [facility] Last Admin: 04/12/18 22:56 Dose: 10 mg Ferrous Sulfate (Feosol -) 325 mg PO DAILY [facility] Last Admin: 04/13/18 09:24 Dose: 325 mg Piperacillin Sod/Tazobactam (Sod 4.5 gm/ Dextrose) 100 mls @ 200 mls/hr IVPB Q8H-IV [facility]; Protocol Last Admin: 04/13/18 09:25 Dose: 200 mls/hr Insulin Aspart (Novolog Vial Sliding Scale -) 1 vial SQ ACHS [facility]; Protocol Last Admin: 04/13/18 11:24 Dose: 4 units Insulin Detemir (Levemir Vial) 24 units SQ BID@0700,2200 [facility] Last Admin: 04/13/18 06:00 Dose: Not Given Lactobacillus Acidophilus (Bacid -) 1 tab PO DAILY [facility] Last Admin: 04/13/18 09:25 Dose: 1 tab Lisinopril (Prinivil) 20 mg PO DAILY [facility] Last Admin: 04/13/18 09:25 Dose: 20 mg Metoprolol Tartrate (Lopressor Injection -) 5 mg IVPUSH Q4H PRN PRN Reason: HYPERTENSION Metoprolol Tartrate (Lopressor -) 50 mg PO BID [facility] Last Admin: 04/13/18 09:24 Dose: 50 mg Polyethylene Glycol (Miralax (For Daily Use) -) 17 gm PO DAILY [facility] Last Admin: 04/13/18 09:25 Dose: 17 grams Tamsulosin HCl (Flomax -) 0.4 mg PO DAILY@0830 [facility] Last Admin: 04/13/18 09:24 Dose: 0.4 mg Zinc Oxide/Panthenol/Vitamin E (Balmex Cream -) 1 applic TP ASDIR PRN PRN Reason: HYGEINE - Objective Vital Signs: Vital Signs Temperature 98.3 F 04/13/18 09:19 Pulse Rate 77 04/13/18 09:19 Respiratory Rate 20 04/13/18 09:19 Blood Pressure 167/74 04/13/18 09:19 O2 Sat by Pulse Oximetry (%) 96 04/13/18 09:19 Constitutional: Yes: Well Nourished, Calm Eyes: Yes: WNL HENT: Yes: WNL Neck: Yes: WNL Cardiovascular: Yes: Pulse Irregular, S1, S2 Respiratory: Yes: Diminished Gastrointestinal: Yes: Normal Bowel Sounds, Soft Extremities: Yes: WNL Edema: No Labs: CBC, BMP Problem List - Problems (1) SONIDO (acute kidney injury) Code(s): N17.9 - ACUTE KIDNEY FAILURE, UNSPECIFIED (2) Acute respiratory failure with hypoxia Code(s): J96.01 - ACUTE RESPIRATORY FAILURE WITH HYPOXIA (3) Fever Code(s): R50.9 - FEVER, UNSPECIFIED Qualifiers: Fever type: unspecified Qualified Code(s): R50.9 - Fever, unspecified (4) Legionella pneumonia Code(s): A48.1 - LEGIONNAIRES' DISEASE (5) Sepsis Code(s): A41.9 - SEPSIS, UNSPECIFIED ORGANISM Qualifiers: Sepsis type: sepsis due to unspecified organism Qualified Code(s): A41.9 - Sepsis, unspecified organism Assessment/Plan ASSESSMENT AND PLAN: Acute Hypoxic Respiratory Failure improved Legionella Pneumonia Severe Sepsis Acute Kidney Injury improving Lactic Acidosis ARDS Atrial Fibrillation with RVR HTN DM - antibiotics as per id - rate control - anticoagulation - monitor urine output, creatinine - Supplemental O2 to maintain saturation - inhaled bronchodilators - PO as tolerated - DVT/GI prophylaxis DR BOWERS
--- NOTE | 2018-04-13 12:38 | PN ---
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 OOB for meals, Diet upgraded to Reg chopped, add tuna, egg salad, fish, and 1-2 soft, easy to chew foods per tray and thin water. Doing quite well.
--- NOTE | 2018-04-13 14:55 | PN ---
Physical Exam: SUBJECTIVE: Patient seen and examined at bedside. Resting in bed comfortably. Morataya catheter inserted overnight by myself in light of urinary retention. No acute events overnight. OBJECTIVE: Vital Signs Period Temp Pulse Resp BP Sys/Santacruz Pulse Ox Last 24 Hr 97.3 F-99.3 F 62-77 18-20 113-167/62-84 96-96 GENERAL: Awake Alert Pleasant HEAD: NC/AT EYES: EOMI PERRLA ENT: MMM NECK: Supple LUNGS: Expiratory rhonchi HEART: RRR No MRG S1S2 ABDOMEN: NDNT No HSM EXTREMITIES: No CCE. PSYCH: Normal mood, normal affect. Laboratory Results - last 24 hr 04/12/18 04/12/18 04/13/18 16:55 22:54 05:55 POC Glucometer 169 254 84 04/13/18 11:22 POC Glucometer 201 Active Medications Generic Name Dose Route Start Last Admin Trade Name Freq PRN Reason Stop Dose Admin Acetaminophen 650 mg 04/05/18 20:39 04/07/18 16:39 Tylenol - PO 650 mg Q6H PRN Administration PAIN LEVEL 4 - 6 Amino Acids 30 ml 04/06/18 08:00 04/13/18 09:25 Prosource No Carb Liquid Pkt PO 30 ml BID@0800,1730 [facility] Administration Amlodipine Besylate 5 mg 04/06/18 10:00 04/13/18 09:24 Norvasc - PO 5 mg DAILY [facility] Administration Apixaban 5 mg 04/09/18 22:00 04/13/18 09:24 Eliquis - PO 5 mg BID [facility] Administration Atorvastatin Calcium 10 mg 04/05/18 22:00 04/12/18 22:56 Lipitor - PO 10 mg HS [facility] Administration Ferrous Sulfate 325 mg 04/10/18 10:00 04/13/18 09:24 Feosol - PO 325 mg DAILY [facility] Administration Piperacillin Sod/Tazobactam 100 mls @ 200 mls/hr 04/08/18 02:00 04/13/18 09: 25 Sod 4.5 gm/ Dextrose IVPB 200 mls/hr Q8H-IV [facility] Administration Protocol Insulin Aspart 1 vial 04/05/18 22:00 04/13/18 11:24 Novolog Vial Sliding Scale - SQ 4 units ACHS [facility] Administration Protocol Insulin Detemir 24 units 04/05/18 22:00 04/13/18 06:00 Levemir Vial SQ Not Given BID@0700,2200 [facility] Lactobacillus Acidophilus 1 tab 04/06/18 10:00 04/13/18 09:25 Bacid - PO 1 tab DAILY [facility] Administration Lisinopril 20 mg 04/12/18 12:47 04/13/18 09:25 Prinivil PO 20 mg DAILY [facility] Administration Metoprolol Tartrate 5 mg 04/05/18 20:39 Lopressor Injection - IVPUSH Q4H PRN HYPERTENSION Metoprolol Tartrate 50 mg 04/06/18 22:00 04/13/18 09:24 Lopressor - PO 50 mg BID [facility] Administration Polyethylene Glycol 17 gm 04/08/18 11:45 04/13/18 09:25 Miralax (For Daily Use) - PO 17 grams DAILY [facility] Administration Tamsulosin HCl 0.4 mg 04/10/18 08:30 04/13/18 09:24 Flomax - PO 0.4 mg DAILY@0830 [facility] Administration Zinc Oxide/Panthenol/Vitamin E 1 applic 04/05/18 20:39 Balmex Cream - TP ASDIR PRN HYGEINE ASSESSMENT/PLAN: Patient is a 62 year old male with history of DM, HTN, HLD presented with complaint of shortness of breath past five days. # Sepsis secondary to Pneumonia/Legionella Pneumonia -Extubated 04/04/18 -Patient received Vancomycin and Zosyn in ED -Given 1 dose 3.375 G Zosyn. s/p Levaquin 14 day tx. zosyn d/c'ed. Spoke with Dr rosenbaum this afternoon. Started on Augmentin 875 po bid for 3 days. -Lactic acidosis resolved -Infectious disease Dr Rosenbaum on board -Urine/Blood cultures negative 04/07/18 -Central line removed 03/29/18 -R Calf abscess Wound culture + for MRSA--> resolving wound -Urine Culture + for Strep Agalactiae Group B - Underwent Modified Barium Swallow 04/08/18. #Urinary Retention/ Phimosis -Changed Morataya Catheter 04/07/18 as it was not draining per nurse. -Bladder scanned and showed 900cc in bladder, morataya was replaced with a new 16 fr morataya by myself, 900cc output, bladder re-scanned with 0cc residual in bladder. -Genital examination shows phimosis and inability to retract foreskin. -Urology Consult- Spoke with Dr Dial. Will f/u as outpatient for possible elective circumcision. -Urinary retention 04/09/18, morataya re-inserted, Tamsulosin 0.4 mg daily for urinary retention -Urinary retention 04/12/18--morataya inserted draining over 700 cc urine -Pt still with morataya # Acute respiratory failure -Likely secondary to the pneumonia -Extubated -Continue oxygen to maintain saturation >90% # Afib -Patient denies history of Afib, or any cardiac history in past. -CHADsVASC score of 2 -Lovenox 90 bid Switched to Eliquis 5 mg po bid 04/09/18 -Cardiac monitoring -Cardiology on board -Lopressor 50 mg po BID # Hypertension Lisinopril 20 mg po daily -Norvasc 5 mg po daily #IDDM -Levemir 24 U SQ BID -A1c 11.5% # FEN -No Fluids -Monitor Electrolytes -Reg chopped, add tuna, egg salad, fish, and 1-2 soft, easy to chew foods per tray and thin water.. Speech/Swallow: " Did well during MBS. Started on Dys chopped/nectar with good tolerance." -Prosource 30 ml po bid # Prophylaxis -Protonix 40 mg ivpush -Eliquis 5 mg po bid # Disposition -med surg Visit type - Emergency Visit Emergency Visit: No - New Patient This patient is new to me today: No - Critical Care Critical Care patient: No
[2018-04-13] MEDS: ATORVASTATIN CA 10 MG TABLET (FP) PO SCH (21:25)
[2018-04-14] MEDS: INSULIN (LEVEMIR) 100 UNITS/ML UNITS SQ SCH ×2 (06:43→23:12)
[2018-04-14] MEDS: INSULIN SLIDING SCALE (NOVOLOG) 1 VIAL SQ SCH ×4 (06:44→23:12)
[2018-04-14] MEDS ORDERED: INSULIN SLIDING SCALE (NOVOLOG) 1 VIAL SQ ONE (08:32)
[2018-04-14] MEDS ORDERED: INSULIN (LEVEMIR) 100 UNITS/ML UNITS SQ ONE (08:32)
--- NOTE | 2018-04-14 09:44 | PN ---
Progress Note (short form) - Note Progress Note: Progress Note: Chief Complaint: resp failure History of Present Illness: no cp sob palps dizzy, no complaints Current Medications Acetaminophen (Tylenol -) 650 mg PO Q6H PRN PRN Reason: PAIN LEVEL 4 - 6 Last Admin: 04/07/18 16:39 Dose: 650 mg Amino Acids (Prosource No Carb Liquid Pkt) 30 ml PO BID@0800,1730 [facility] Last Admin: 04/13/18 16:58 Dose: 30 ml Amlodipine Besylate (Norvasc -) 5 mg PO DAILY [facility] Last Admin: 04/13/18 09:24 Dose: 5 mg Amoxicillin/Clavulanate Potassium (Augmentin - 875mg Tablet) 1 tab PO BID@0800, 1730 [facility] Stop: 04/16/18 17:30 Apixaban (Eliquis -) 5 mg PO BID [facility] Last Admin: 04/13/18 21:25 Dose: 5 mg Atorvastatin Calcium (Lipitor -) 10 mg PO HS [facility] Last Admin: 04/13/18 21:25 Dose: 10 mg Ferrous Sulfate (Feosol -) 325 mg PO DAILY [facility] Last Admin: 04/13/18 09:24 Dose: 325 mg Insulin Aspart (Novolog Vial Sliding Scale -) 1 vial SQ [facility]; Protocol Last Admin: 04/14/18 06:44 Dose: 2 units Insulin Detemir (Levemir Vial) 24 units SQ BID@0700,2200 [facility] Last Admin: 04/14/18 06:43 Dose: 24 unit Lactobacillus Acidophilus (Bacid -) 1 tab PO DAILY [facility] Last Admin: 04/13/18 09:25 Dose: 1 tab Lisinopril (Prinivil) 20 mg PO DAILY [facility] Last Admin: 04/13/18 09:25 Dose: 20 mg Metoprolol Tartrate (Lopressor Injection -) 5 mg IVPUSH Q4H PRN PRN Reason: HYPERTENSION Metoprolol Tartrate (Lopressor -) 50 mg PO BID [facility] Last Admin: 04/13/18 21:25 Dose: 50 mg Polyethylene Glycol (Miralax (For Daily Use) -) 17 gm PO DAILY [facility] Last Admin: 04/13/18 09:25 Dose: 17 grams Tamsulosin HCl (Flomax -) 0.4 mg PO DAILY@0830 [facility] Last Admin: 04/13/18 09:24 Dose: 0.4 mg Zinc Oxide/Panthenol/Vitamin E (Balmex Cream -) 1 applic TP ASDIR PRN PRN Reason: HYGEINE - Objective Vital Signs: Vital Signs Period Temp Pulse Resp BP Sys/Santacruz Pulse Ox Last 24 Hr 98.0 F-99.5 F 70-98 18-20 131-158/66-85 93-93 Constitutional: Yes: No Distress, Calm Cardiovascular: Yes: Regular Rate and Rhythm, S1, S2, . No: Gallop, Murmur Respiratory: Yes: CTAB No: Accessory Muscle Use Gastrointestinal: Yes: Normal Bowel Sounds, Soft. No: Tenderness Extremities: No: Cold Edema: No Integumentary: No: Jaundice diaphoresis Neurological:awake alert appropriate Psychiatric: No: Agitated ct chest: b/l pna ecg: afib vr 154, no ischemic changes, nl qtc ecg 03/30 sinus, QTc 403 (stable) echo 03/18: nl LVSF. nl RV. nl LA. mild MR/TR. RVSP 30-40 tele: sinus a/p: 62 m hx dm, hld, htn here with fever, leg wound. sepsis, PNA, acute resp failure: - has sahu abscess as well as b/l pna - was intubated, now extubated and transferred to floor, bp stable - lung exam improved - cont abx per ID, primary afib, rvr: -pt denies hx afib -in er started on dilt gtt and amio gtt-->sinus -cont metoprolol -chadsvasc 2 warrants ac, cont eliquis SONIDO: -bun/creat up 03/27, ? intravasc vol depletion in setting of DKA -improved with IVF htn: -cont bb, norvasc, ACEI, uptitrate meds as tolerated stable from cardiac perspective
[2018-04-14] MEDS: AMINO ACIDS/PROTEIN HYDROLYS 30 ML LIQUID.PKT PO SCH ×2 (09:48→17:17)
[2018-04-14] MEDS: LISINOPRIL 10 MG TABLET (FP) PO SCH (09:49)
[2018-04-14] MEDS: AMOX TR/POT CLAV 875MG/125MG TABLETS (FP) PO SCH ×2 (09:49→17:17)
[2018-04-14] MEDS: FERROUS SO4 325 MG TABLET (FP) PO SCH (09:49)
[2018-04-14] MEDS: LACTOBACILLUS ACIDOPHILUS 1 TABLET PO SCH (09:49)
[2018-04-14] MEDS: TAMSULOSIN HCL 0.4 MG CAP PO SCH (09:50)
[2018-04-14] MEDS: amLODIPine BESYLATE 5 MG TABLET (FP) PO SCH (09:50)
[2018-04-14] MEDS: APIXABAN 5 MG TABLET PO SCH ×2 (09:50→23:11)
[2018-04-14] MEDS: METOPROLOL TARTRATE 50 MG TABLET (FP) PO SCH ×2 (09:50→23:12)
[2018-04-14] MEDS: POLYETHYLENE GLYCOL 3350 119 GM BTL PO SCH (09:50)
--- NOTE | 2018-04-14 12:39 | PN ---
Teaching Attending Note Name of Resident: Joe Larkin ATTENDING PHYSICIAN STATEMENT I saw and evaluated the patient. I reviewed the resident's note and discussed the case with the resident. I agree with the resident's findings and plan as documented. SUBJECTIVE:asymptomatic. denies CP, SOB, fever, chills, cough, N/V/C/D OBJECTIVE: Last Vital Signs Temp Pulse Resp BP Pulse Ox 98.0 F 75 20 155/85 93 L 04/14/18 06:00 04/14/18 06:00 04/14/18 06:00 04/14/18 06:00 04/13/18 22:00 General NAD CV S1 S2 RRR no murmur/rub/gallop Lungs CTA B/L no wheezing/rales/rhonchi ASSESSMENT AND PLAN: 62 Y/O M with PMHx uncontrolled DM, HTN, HLD P/W SOB for 5 days, found to be in hypoxic respiratory failure and sepsis due to PNA, intubated for hypoxic respiratory failure, newly dxed Afib. 1. Acute Hypoxic respiratory failure- due to multilobar PNA. s/p extubation 06/05. currently 91% on 4L NC. will check pre and post as likely require supplemental oxygen. incentive spirometer, chest PT 2. sepsis due to Multi-lobar PNA- +legionella. with complication for development of likely aspiration PNA. competed course of levaquin and completed Zosyn now converted to augmentin today. ID on board 3. MRSA wound infection- completed abx course. cont local wound care 4. Afib with RVR- new onset. currently in NSR. rate controlled. on eliquis. cardio on board. 5. Prolonged Qtc- avoid QT prolonging agents. now resolved. 6. DM-A1c 11.5. improved here will need insulin on discharge. titrate levemir to optimize control. ISS and BGM. 7. SONIDO- due to hypoperfusion. resolved. avoid nephrotoxic agents 8. HTN- above goal. increase lisinopril. titrate medications 9. DVT ppx- eliquis 10. medically optimized for discharge. awaiting bed availability at [facility]
--- NOTE | 2018-04-14 14:55 | PN ---
Progress Note, Physician History of Present Illness: PULMONARY AWAKE,ALERT,NO DISTRESS,-SOB - Current Medication List Current Medications: Active Medications Acetaminophen (Tylenol -) 650 mg PO Q6H PRN PRN Reason: PAIN LEVEL 4 - 6 Last Admin: 04/07/18 16:39 Dose: 650 mg Amino Acids (Prosource No Carb Liquid Pkt) 30 ml PO BID@0800,1730 [facility] Last Admin: 04/14/18 09:48 Dose: 30 ml Amlodipine Besylate (Norvasc -) 5 mg PO DAILY [facility] Last Admin: 04/14/18 09:50 Dose: 5 mg Amoxicillin/Clavulanate Potassium (Augmentin - 875mg Tablet) 1 tab PO BID@0800, 1730 [facility] Stop: 04/16/18 17:30 Last Admin: 04/14/18 09:49 Dose: 1 tab Apixaban (Eliquis -) 5 mg PO BID [facility] Last Admin: 04/14/18 09:50 Dose: 5 mg Atorvastatin Calcium (Lipitor -) 10 mg PO HS [facility] Last Admin: 04/13/18 21:25 Dose: 10 mg Ferrous Sulfate (Feosol -) 325 mg PO DAILY [facility] Last Admin: 04/14/18 09:49 Dose: 325 mg Insulin Aspart (Novolog Vial Sliding Scale -) 1 vial SQ [facility]; Protocol Last Admin: 04/14/18 12:10 Dose: 4 units Insulin Detemir (Levemir Vial) 24 units SQ BID@0700,2200 [facility] Last Admin: 04/14/18 06:43 Dose: 24 unit Lactobacillus Acidophilus (Bacid -) 1 tab PO DAILY [facility] Last Admin: 04/14/18 09:49 Dose: 1 tab Lisinopril (Prinivil) 20 mg PO DAILY [facility] Last Admin: 04/14/18 09:49 Dose: 20 mg Metoprolol Tartrate (Lopressor Injection -) 5 mg IVPUSH Q4H PRN PRN Reason: HYPERTENSION Metoprolol Tartrate (Lopressor -) 50 mg PO BID [facility] Last Admin: 04/14/18 09:50 Dose: 50 mg Polyethylene Glycol (Miralax (For Daily Use) -) 17 gm PO DAILY [facility] Last Admin: 04/14/18 09:50 Dose: 17 grams Tamsulosin HCl (Flomax -) 0.4 mg PO DAILY@0830 [facility] Last Admin: 04/14/18 09:50 Dose: 0.4 mg Zinc Oxide/Panthenol/Vitamin E (Balmex Cream -) 1 applic TP ASDIR PRN PRN Reason: HYGEINE - Objective Vital Signs: Vital Signs Temperature 97.8 F 04/14/18 10:00 Pulse Rate 77 04/14/18 14:02 Respiratory Rate 20 04/14/18 10:00 Blood Pressure 157/82 04/14/18 10:00 O2 Sat by Pulse Oximetry (%) 90 L 04/14/18 14:02 Constitutional: Yes: Well Nourished, Calm Eyes: Yes: WNL HENT: Yes: WNL Neck: Yes: WNL Cardiovascular: Yes: Pulse Irregular, S1, S2 Respiratory: Yes: Diminished Gastrointestinal: Yes: Normal Bowel Sounds, Soft Extremities: Yes: WNL Edema: No Problem List - Problems (1) SONIDO (acute kidney injury) Code(s): N17.9 - ACUTE KIDNEY FAILURE, UNSPECIFIED (2) Acute respiratory failure with hypoxia Code(s): J96.01 - ACUTE RESPIRATORY FAILURE WITH HYPOXIA (3) Fever Code(s): R50.9 - FEVER, UNSPECIFIED Qualifiers: Fever type: unspecified Qualified Code(s): R50.9 - Fever, unspecified (4) Legionella pneumonia Code(s): A48.1 - LEGIONNAIRES' DISEASE (5) Sepsis Code(s): A41.9 - SEPSIS, UNSPECIFIED ORGANISM Qualifiers: Sepsis type: sepsis due to unspecified organism Qualified Code(s): A41.9 - Sepsis, unspecified organism Assessment/Plan ASSESSMENT AND PLAN: Acute Hypoxic Respiratory Failure improved Legionella Pneumonia Severe Sepsis Acute Kidney Injury improving Lactic Acidosis ARDS Atrial Fibrillation with RVR HTN DM - antibiotics - rate control - anticoagulation - monitor urine output, creatinine - Supplemental O2 to maintain saturation - inhaled bronchodilators - PO as tolerated - DVT/GI prophylaxis DR BOWERS
--- NOTE | 2018-04-14 17:30 | PN ---
Physical Exam: SUBJECTIVE: Patient seen and examined at bedside. States he feels better. No complaints. No acute events overnight. OBJECTIVE: Vital Signs Period Temp Pulse Resp BP Sys/Santacruz Pulse Ox Last 24 Hr 97.8 F-99.5 F 75-98 18-20 131-158/75-85 90-93 GENERAL: AAOx3 NAD Pleasant HEAD: NC/AT EYES:EOMI ENT: MMM. LUNGS: Decreased BS at bases HEART: RRR No MRG S1S2 ABDOMEN: NTND BS+ EXTREMITIES: 1+ pitting edema b/l Laboratory Results - last 24 hr 04/13/18 04/14/18 04/14/18 21:23 05:49 12:03 POC Glucometer 314 165 214 Active Medications Generic Name Dose Route Start Last Admin Trade Name Freq PRN Reason Stop Dose Admin Acetaminophen 650 mg 04/05/18 20:39 04/07/18 16:39 Tylenol - PO 650 mg Q6H PRN Administration PAIN LEVEL 4 - 6 Amino Acids 30 ml 04/06/18 08:00 04/14/18 17:17 Prosource No Carb Liquid Pkt PO 30 ml BID@0800,1730 [facility] Administration Amlodipine Besylate 5 mg 04/06/18 10:00 04/14/18 09:50 Norvasc - PO 5 mg DAILY [facility] Administration Amoxicillin/Clavulanate Potassium 1 tab 04/14/18 08:00 04/14/18 17:17 Augmentin - 875mg Tablet PO 04/16/18 17:30 1 tab BID@0800,1730 [facility] Administration Apixaban 5 mg 04/09/18 22:00 04/14/18 09:50 Eliquis - PO 5 mg BID [facility] Administration Atorvastatin Calcium 10 mg 04/05/18 22:00 04/13/18 21:25 Lipitor - PO 10 mg HS [facility] Administration Ferrous Sulfate 325 mg 04/10/18 10:00 04/14/18 09:49 Feosol - PO 325 mg DAILY [facility] Administration Insulin Aspart 1 vial 04/05/18 22:00 04/14/18 17:17 Novolog Vial Sliding Scale - SQ 2 units ACHS [facility] Administration Protocol Insulin Detemir 24 units 04/05/18 22:00 04/14/18 06:43 Levemir Vial SQ 24 unit BID@0700,2200 [facility] Administration Lactobacillus Acidophilus 1 tab 04/06/18 10:00 04/14/18 09:49 Bacid - PO 1 tab DAILY [facility] Administration Lisinopril 20 mg 04/12/18 12:47 04/14/18 09:49 Prinivil PO 20 mg DAILY [facility] Administration Metoprolol Tartrate 5 mg 04/05/18 20:39 Lopressor Injection - IVPUSH Q4H PRN HYPERTENSION Metoprolol Tartrate 50 mg 04/06/18 22:00 04/14/18 09:50 Lopressor - PO 50 mg BID [facility] Administration Polyethylene Glycol 17 gm 04/08/18 11:45 04/14/18 09:50 Miralax (For Daily Use) - PO 17 grams DAILY [facility] Administration Tamsulosin HCl 0.4 mg 04/10/18 08:30 04/14/18 09:50 Flomax - PO 0.4 mg DAILY@0830 [facility] Administration Zinc Oxide/Panthenol/Vitamin E 1 applic 04/05/18 20:39 Balmex Cream - TP ASDIR PRN HYGEINE ASSESSMENT/PLAN: Patient is a 62 year old male with history of DM, HTN, HLD presented with complaint of shortness of breath past five days. # Sepsis secondary to Pneumonia/Legionella Pneumonia -Extubated 04/04/18 -Patient received Vancomycin and Zosyn in ED -Given 1 dose 3.375 G Zosyn. s/p Levaquin 14 day tx. zosyn d/c'ed. Augmentin 875 po bid for 2 more days. -Lactic acidosis resolved -Infectious disease Dr Rosenbaum on board -Urine/Blood cultures negative 04/07/18 -Central line removed 03/29/18 -R Calf abscess Wound culture + for MRSA--> resolving wound -Urine Culture + for Strep Agalactiae Group B - Underwent Modified Barium Swallow 04/08/18. #Urinary Retention/ Phimosis -Changed Morataya Catheter 04/07/18 as it was not draining per nurse. -Bladder scanned and showed 900cc in bladder, morataya was replaced with a new 16 fr morataya by myself, 900cc output, bladder re-scanned with 0cc residual in bladder. -Genital examination shows phimosis and inability to retract foreskin. -Urology Consult- Spoke with Dr Dial. Will f/u as outpatient for possible elective circumcision. -Urinary retention 04/09/18, morataya re-inserted, Tamsulosin 0.4 mg daily for urinary retention -Urinary retention 04/12/18--morataya inserted draining over 700 cc urine -Pt still with morataya # Acute respiratory failure -Likely secondary to the pneumonia -Extubated -Continue oxygen to maintain saturation >90% -04/14/18 Pre and Post performed today by respiratory team. Pt saturating at 91 % with 4L NC. Saturation dropped to 86% on room air. # Afib -Patient denies history of Afib, or any cardiac history in past. -CHADsVASC score of 2 -Lovenox 90 bid Switched to Eliquis 5 mg po bid 04/09/18 -Cardiac monitoring -Cardiology on board Dr Diamond -Lopressor 50 mg po BID # Hypertension Lisinopril 20 mg po daily -Norvasc 5 mg po daily #IDDM -Levemir 24 U SQ BID -A1c 11.5% # FEN -No Fluids -Monitor Electrolytes -Reg chopped, add tuna, egg salad, fish, and 1-2 soft, easy to chew foods per tray and thin water. Speech/Swallow: " Did well during MBS. Started on Dys chopped/nectar with good tolerance." -Prosource 30 ml po bid # Prophylaxis -Protonix 40 mg ivpush -Eliquis 5 mg po bid # Disposition Likely for D/C tomorrow Visit type - Emergency Visit Emergency Visit: Yes ED Registration Date: 03/25/18 Care time: The patient presented to the Emergency Department on the above date and was hospitalized for further evaluation of their emergent condition. - New Patient This patient is new to me today: No - Critical Care Critical Care patient: No - Discharge Referral Referred to [facility] Med P.C.: No
[2018-04-14] MEDS: ATORVASTATIN CA 10 MG TABLET (FP) PO SCH (23:12)
[2018-04-15] MEDS: INSULIN (LEVEMIR) 100 UNITS/ML UNITS SQ SCH ×2 (06:31→22:01)
[2018-04-15] MEDS: AMOX TR/POT CLAV 875MG/125MG TABLETS (FP) PO SCH ×2 (08:00→18:01)
[2018-04-15] MEDS: LISINOPRIL 10 MG TABLET (FP) PO SCH (08:00)
[2018-04-15] MEDS: AMINO ACIDS/PROTEIN HYDROLYS 30 ML LIQUID.PKT PO SCH ×2 (08:00→18:02)
[2018-04-15] MEDS: TAMSULOSIN HCL 0.4 MG CAP PO SCH (08:30)
[2018-04-15] MEDS: LACTOBACILLUS ACIDOPHILUS 1 TABLET PO SCH (10:00)
[2018-04-15] MEDS: METOPROLOL TARTRATE 50 MG TABLET (FP) PO SCH ×2 (10:00→22:01)
[2018-04-15] MEDS: FERROUS SO4 325 MG TABLET (FP) PO SCH (10:00)
[2018-04-15] MEDS: amLODIPine BESYLATE 10 MG TABLET (FP) PO SCH (10:00)
[2018-04-15] MEDS: APIXABAN 5 MG TABLET PO SCH ×2 (10:00→22:01)
--- NOTE | 2018-04-15 11:06 | PN ---
Progress Note (short form) - Note Progress Note: Chief Complaint: resp failure History of Present Illness: no cp sob palps dizzy Current Medications Generic Name Dose Route Start Last Admin Trade Name Pollo PRN Reason Stop Dose Admin Acetaminophen 650 mg 04/05/18 20:39 04/07/18 16:39 Tylenol - PO 650 mg Q6H PRN Administration PAIN LEVEL 4 - 6 Amino Acids 30 ml 04/06/18 08:00 04/14/18 17:17 Prosource No Carb Liquid Pkt PO 30 ml BID@0800,1730 [facility] Administration Amlodipine Besylate 10 mg 04/15/18 09:17 Norvasc - PO DAILY [facility] Amoxicillin/Clavulanate Potassium 1 tab 04/14/18 08:00 04/14/18 17:17 Augmentin - 875mg Tablet PO 04/16/18 17:30 1 tab BID@0800,1730 [facility] Administration Apixaban 5 mg 04/09/18 22:00 04/14/18 23:11 Eliquis - PO 5 mg BID [facility] Administration Atorvastatin Calcium 10 mg 04/05/18 22:00 04/14/18 23:12 Lipitor - PO 10 mg HS [facility] Administration Ferrous Sulfate 325 mg 04/10/18 10:00 04/14/18 09:49 Feosol - PO 325 mg DAILY [facility] Administration Insulin Aspart 1 vial 04/05/18 22:00 04/14/18 23:12 Novolog Vial Sliding Scale - SQ 6 units ACHS [facility] Administration Protocol Insulin Detemir 24 units 04/05/18 22:00 04/15/18 06:31 Levemir Vial SQ 24 unit BID@0700,2200 [facility] Administration Lactobacillus Acidophilus 1 tab 04/06/18 10:00 04/14/18 09:49 Bacid - PO 1 tab DAILY [facility] Administration Lisinopril 20 mg 04/12/18 12:47 04/14/18 09:49 Prinivil PO 20 mg DAILY [facility] Administration Metoprolol Tartrate 5 mg 04/05/18 20:39 Lopressor Injection - IVPUSH Q4H PRN HYPERTENSION Metoprolol Tartrate 50 mg 04/06/18 22:00 04/14/18 23:12 Lopressor - PO 50 mg BID [facility] Administration Polyethylene Glycol 17 gm 04/08/18 11:45 04/14/18 09:50 Miralax (For Daily Use) - PO 17 grams DAILY [facility] Administration Tamsulosin HCl 0.4 mg 04/10/18 08:30 04/14/18 09:50 Flomax - PO 0.4 mg DAILY@0830 [facility] Administration Zinc Oxide/Panthenol/Vitamin E 1 applic 04/05/18 20:39 Balmex Cream - TP ASDIR PRN HYGEINE - Objective Vital Signs: Vital Signs Period Temp Pulse Resp BP Sys/Santacruz Pulse Ox Last 24 Hr 97.2 F-98.2 F 76-82 18-20 136-164/77-82 90-95 Constitutional: Yes: No Distress, Calm Cardiovascular: Yes: Regular Rate and Rhythm, S1, S2, . No: Gallop, Murmur Respiratory: Yes: +rhonchi. No: Accessory Muscle Use Gastrointestinal: Yes: Normal Bowel Sounds, Soft. No: Tenderness Extremities: No: Cold Edema: No Integumentary: No: Jaundice diaphoresis Neurological:awake alert appropriate Psychiatric: No: Agitated CBC, BMP 04/12/18 05:45 04/12/18 05:45 ct chest: b/l pna ecg: afib vr 154, no ischemic changes, nl qtc ecg 03/30 sinus, QTc 403 (stable) echo 03/18: nl LVSF. nl RV. nl LA. mild MR/TR. RVSP 30-40 a/p: 62 m hx dm, hld, htn here with fever, leg wound. sepsis, PNA, acute resp failure: - has sahu abscess as well as b/l pna - was intubated, now extubated and transferred to floor, bp stable - lung exam improved - cont abx per ID, primary afib, rvr: -pt denies hx afib -in er started on dilt gtt and amio gtt-->sinus -cont metoprolol -chadsvasc 2 warrants ac, cont eliquis SONIDO: -bun/creat up 03/27, ? intravasc vol depletion in setting of DKA -improved with IVF htn: -cont current meds, will increase norvasc to 10 qd for better control. can [facility] tele
[2018-04-15] MEDS: POLYETHYLENE GLYCOL 3350 119 GM BTL PO SCH (11:18)
--- NOTE | 2018-04-15 12:25 | PN ---
Progress Note (short form) - Note Progress Note: Resting in NAD. No CP or SOB. No acute events overnight. Intake & Output 04/12/18 04/13/18 04/14/18 04/15/18 23:59 23:59 23:59 23:59 Intake Total 1660 1100 1190 440 Output Total 1800 2650 4050 900 Balance -140 -1550 -2860 -460 Last Vital Signs Temp Pulse Resp BP Pulse Ox 97.2 F L 77 20 153/78 93 L 04/15/18 06:00 04/15/18 06:00 04/15/18 06:00 04/15/18 06:00 04/14/18 22:00 Active Medications Acetaminophen (Tylenol -) 650 mg PO Q6H PRN PRN Reason: PAIN LEVEL 4 - 6 Last Admin: 04/07/18 16:39 Dose: 650 mg Amino Acids (Prosource No Carb Liquid Pkt) 30 ml PO BID@0800,1730 [facility] Last Admin: 04/15/18 08:00 Dose: 30 ml Amlodipine Besylate (Norvasc -) 10 mg PO DAILY [facility] Last Admin: 04/15/18 10:00 Dose: 10 mg Amoxicillin/Clavulanate Potassium (Augmentin - 875mg Tablet) 1 tab PO BID@0800, 1730 [facility] Stop: 04/16/18 17:30 Last Admin: 04/15/18 08:00 Dose: 1 tab Apixaban (Eliquis -) 5 mg PO BID [facility] Last Admin: 04/15/18 10:00 Dose: 5 mg Atorvastatin Calcium (Lipitor -) 10 mg PO HS [facility] Last Admin: 04/14/18 23:12 Dose: 10 mg Ferrous Sulfate (Feosol -) 325 mg PO DAILY [facility] Last Admin: 04/15/18 10:00 Dose: 325 mg Insulin Aspart (Novolog Vial Sliding Scale -) 1 vial SQ [facility]; Protocol Last Admin: 04/14/18 23:12 Dose: 6 units Insulin Detemir (Levemir Vial) 24 units SQ BID@0700,2200 [facility] Last Admin: 04/15/18 06:31 Dose: 24 unit Lactobacillus Acidophilus (Bacid -) 1 tab PO DAILY [facility] Last Admin: 04/15/18 10:00 Dose: 1 tab Lisinopril (Prinivil) 20 mg PO DAILY [facility] Last Admin: 04/15/18 08:00 Dose: 20 mg Metoprolol Tartrate (Lopressor Injection -) 5 mg IVPUSH Q4H PRN PRN Reason: HYPERTENSION Metoprolol Tartrate (Lopressor -) 50 mg PO BID [facility] Last Admin: 04/15/18 10:00 Dose: 50 mg Polyethylene Glycol (Miralax (For Daily Use) -) 17 gm PO DAILY [facility] Last Admin: 04/15/18 11:18 Dose: 17 grams Tamsulosin HCl (Flomax -) 0.4 mg PO DAILY@0830 [facility] Last Admin: 04/15/18 08:30 Dose: 0.4 mg Zinc Oxide/Panthenol/Vitamin E (Balmex Cream -) 1 applic TP ASDIR PRN PRN Reason: HYGEINE Constitutional: Yes: NAD Eyes: Yes: WNL HENT: Yes: WNL Neck: Yes: WNL Cardiovascular: Yes: Pulse Irregular, S1, S2 Respiratory: Yes: Few scattered Rhonchi Gastrointestinal: Yes: Normal Bowel Sounds, Soft Extremities: Yes: WNL Edema: No Labs: Laboratory Results - last 24 hr 04/14/18 04/14/18 04/15/18 17:20 21:25 06:29 POC Glucometer 174 253 105 Problem List - Problems (1) SONIDO (acute kidney injury) Code(s): N17.9 - ACUTE KIDNEY FAILURE, UNSPECIFIED (2) Acute respiratory failure with hypoxia Code(s): J96.01 - ACUTE RESPIRATORY FAILURE WITH HYPOXIA (3) Fever Code(s): R50.9 - FEVER, UNSPECIFIED Qualifiers: Fever type: unspecified Qualified Code(s): R50.9 - Fever, unspecified (4) Legionella pneumonia Code(s): A48.1 - LEGIONNAIRES' DISEASE (5) Sepsis Code(s): A41.9 - SEPSIS, UNSPECIFIED ORGANISM Qualifiers: Sepsis type: sepsis due to unspecified organism Qualified Code(s): A41.9 - Sepsis, unspecified organism Assessment/Plan Acute Hypoxic Respiratory Failure improved Legionella Pneumonia Severe Sepsis Acute Kidney Injury improving Lactic Acidosis ARDS Atrial Fibrillation with RVR HTN DM - Augmentin - anticoagulation - Supplemental O2 to maintain saturation - inhaled bronchodilators - PO as tolerated - D/C planning to [facility] Dr Stephens
[2018-04-15] MEDS: INSULIN SLIDING SCALE (NOVOLOG) 1 VIAL SQ SCH ×3 (12:39→22:02)
[2018-04-15] MEDS ORDERED: INSULIN SLIDING SCALE (NOVOLOG) 1 VIAL SQ ONE (12:43)
--- NOTE | 2018-04-15 12:53 | PN ---
Progress Note, Physician History of Present Illness: OOB in chair Awake, alert No complaints offerred Appears comfortable at rest on nasal cannula Denies dyspnea/cough Temps, WBC down WBC WNL Sputum c/s normal mauricio - Current Medication List Current Medications: Active Medications Acetaminophen (Tylenol -) 650 mg PO Q6H PRN PRN Reason: PAIN LEVEL 4 - 6 Last Admin: 04/07/18 16:39 Dose: 650 mg Amino Acids (Prosource No Carb Liquid Pkt) 30 ml PO BID@0800,1730 [facility] Last Admin: 04/15/18 08:00 Dose: 30 ml Amlodipine Besylate (Norvasc -) 10 mg PO DAILY [facility] Last Admin: 04/15/18 10:00 Dose: 10 mg Amoxicillin/Clavulanate Potassium (Augmentin - 875mg Tablet) 1 tab PO BID@0800, 1730 [facility] Stop: 04/16/18 17:30 Last Admin: 04/15/18 08:00 Dose: 1 tab Apixaban (Eliquis -) 5 mg PO BID [facility] Last Admin: 04/15/18 10:00 Dose: 5 mg Atorvastatin Calcium (Lipitor -) 10 mg PO HS [facility] Last Admin: 04/14/18 23:12 Dose: 10 mg Ferrous Sulfate (Feosol -) 325 mg PO DAILY [facility] Last Admin: 04/15/18 10:00 Dose: 325 mg Insulin Aspart (Novolog Vial Sliding Scale -) 1 vial SQ [facility]; Protocol Last Admin: 04/15/18 12:39 Dose: 2 units Insulin Detemir (Levemir Vial) 24 units SQ BID@0700,2200 [facility] Last Admin: 04/15/18 06:31 Dose: 24 unit Lactobacillus Acidophilus (Bacid -) 1 tab PO DAILY [facility] Last Admin: 04/15/18 10:00 Dose: 1 tab Lisinopril (Prinivil) 20 mg PO DAILY [facility] Last Admin: 04/15/18 08:00 Dose: 20 mg Metoprolol Tartrate (Lopressor Injection -) 5 mg IVPUSH Q4H PRN PRN Reason: HYPERTENSION Metoprolol Tartrate (Lopressor -) 50 mg PO BID [facility] Last Admin: 04/15/18 10:00 Dose: 50 mg Polyethylene Glycol (Miralax (For Daily Use) -) 17 gm PO DAILY [facility] Last Admin: 04/15/18 11:18 Dose: 17 grams Tamsulosin HCl (Flomax -) 0.4 mg PO DAILY@0830 [facility] Last Admin: 04/15/18 08:30 Dose: 0.4 mg Zinc Oxide/Panthenol/Vitamin E (Balmex Cream -) 1 applic TP ASDIR PRN PRN Reason: HYGEINE - Objective Vital Signs: Vital Signs Temperature 97.2 F L 04/15/18 06:00 Pulse Rate 77 04/15/18 06:00 Respiratory Rate 20 04/15/18 06:00 Blood Pressure 153/78 04/15/18 06:00 O2 Sat by Pulse Oximetry (%) 93 L 04/14/18 22:00 Constitutional: Yes: No Distress Eyes: Yes: Conjunctiva Clear Cardiovascular: Yes: Regular Rate and Rhythm, S1, S2 Respiratory: Yes: CTA Bilaterally Gastrointestinal: Yes: Normal Bowel Sounds, Soft. No: Tenderness Edema: No Labs: CBC, BMP 04/12/18 05:45 04/12/18 05:45 INR, PTT INR 1.51 (0.83-1.09) H 03/26/18 05:13 Assessment/Plan Multilobar legionella pneumonia S/P 14d levaquin ? new asp v HCAP Respiratory failure S/P extubation Sepsis secondary to lung source Leukocytosis resolved + Wound c/s MRSA Continue po Augmentin x 24hr, then observe off antibiotics
--- NOTE | 2018-04-15 14:07 | DS ---
Physical Exam: SUBJECTIVE: Patient seen and examined at bedside. Resting in bed comfortably. Denies any complaints. For D/C today. OBJECTIVE: Vital Signs Period Temp Pulse Resp BP Sys/Santacruz Pulse Ox Last 24 Hr 97.2 F-98.2 F 76-80 18-20 153-164/77-82 93-95 PHYSICAL EXAM GENERAL: Awake Alert NAD HEAD: NC/AT EYES: PERRLA ENT: MMM, missing teeth, no adenopathy, no tonsilar exudate LUNGS: Decreased BS at bases HEART: RRR No MRG S1S2 ABDOMEN: NDNT No HSM BS+ EXTREMITIES: 1+ pitting edema NEUROLOGICAL: CN 2-12 intact . SKIN: Warm, dry, normal turgor, no rashes or lesions noted. LABS Laboratory Results - last 24 hr 04/14/18 04/14/18 04/15/18 17:20 21:25 06:29 POC Glucometer 174 253 105 04/15/18 12:23 POC Glucometer 183 Imaging: CT Chest W/O Contrast IMPRESSION: Patchy airspace disease and consolidation in the right perihilar region with consolidation/ atelectasis in the right lower lobe, posteriorly compatible with pneumonia. There is also consolidation of almost the entire left lung with air bronchogram consistent with pneumonia. Small left and minimal right pleural effusion. Slightly enlarged mediastinal lymph nodes measuring up to 1.6 cm. In the abdomen and pelvis, there is a mild stranding of the perinephric fat, bilaterally. No CT evidence of an acute process in the abdomen and pelvis. Moderately distended urinary bladder without oval-shaped, of uncertain clinical significance or etiology. Correlate clinically for further evaluation. A preliminary report was forwarded by the [employer] service, [employer] Reported By: Chevy Rivers MD 03/26/18 0913 Chest XRAY 03/25/18: EXAM#: TYPE/EXAM: RESULT: [id number] RAD/CHEST X-RAY PORTABLE* Chest: Shortness of breath. A single AP view of the chest reveals a widened mediastinum with a left infiltrate and fluid and some increased right lung markings. Correlation recommended. Follow-up suggested. If findings do not resolve then CT is needed Reported By: Sanjay Gordon MD 03/26/18 0770 HOSPITAL COURSE: Date of Admission:03/25/18 Pt presented to [facility] ED on 03/15/18 and was found to have sepsis secondary to Legionella pneumonia. Please see radiology results above. Pt was also found to have a wound on his right calf which was positive for MRSA. Pt was treated with Vanc and Zosyn. Pt was also started on levaquin for his legionella pneumonia and finally was put on Augmentin. Pt was admitted to the ICU where he was intubated and treated with antibiotics. Pt was also found to be in atrial fibrillation. Was initially put on amiodarone and diltiazem but was then seen by cardiology and ultimately placed on 50 mg Lopressor BID and Eliquis 5 mg po bid for anticoagulation. Pt's blood glucose measurements were elevated and he was given insulin to help lower these levels. Furthermore, during admission, pt had urinary retention and was unable to void. Pt was placed on Tamsulosin 0.4 mg. Morataya catheter was ultimately placed in patient with success. Morataya was removed shortly after but pt went into urinary retention again and morataya was re- inserted. On genital examination, phimosis was observed as foreskin was unable to be pulled back over glans penis; Furthermore, pt's blood pressure measurements were elevated on this admission and he was placed on Lisinopril 20 mg po daily and Norvasc 10 g po daily. Pt was found to desat on room air to 86% on pre and post test. Was decided that pt should remain on 4L NC O2 upon discharge. Pt d/c'ed to rehabilitation facility. Date of Discharge: 04/15/18 Minutes to complete discharge: 35 Discharge Summary Reason For Visit: SEPSIS Current Active Problems SONIDO (acute kidney injury) (Acute) Acute respiratory failure with hypoxia (Acute) Fever (Acute) Legionella pneumonia (Acute) Sepsis (Acute) Condition: Fair - Instructions Diet, Activity, Other Instructions: You presented to [facility] ED on 03/15/18 and were found to have sepsis (a bloodstream infection) secondary to a pneumonia. You were admitted to the ICU where you were intubated and treated with antibiotics. You were also found to have an irregular heart rhythm called atrial fibrillation. For this, you were given medications to help correct your heart rhythm as well as an anticoagulant (to prevent your blood from forming clots). You were also found to have very elevated blood sugar levels and you were given insulin to help lower these levels. Furthermore, during your admission, you had urinary retention and were unable to void. For this, a medication was started for you which helps you urinate easier. We put in a morataya catheter to help you urinate (please follow with urology (Dr. Dial) for morataya removal, change the morataya bag once per day ). You were also observed to have a condition called phimosis. this occurs when the foreskin of the penis isnt able to be pulled back over the glans penis; this is commonly found in individuals with diabetes. It is recommended that you follow up with a Urologist for this problem as well as your urinary retention problem. Furthermore, you blood pressure measurements were elevated on this admission and it is strongly advised that you take your antihypertensive medications as prescribed. Furthermore, during your admission, you underwent a test to see how much oxygen you require to maintain a normal oxygen saturation. It is recommended that you stay on continuous 4L of O2. Please continue to take the anticoagulant, Eliquis, as prescribed. We have referred you to our medical clinic for follow up medical care. Please come to our medical clinic within 1 week Please take the following medications as prescribed: -Augmentin 875 mg tonight before bed and then twice per day for the next 1 day ( 3 doses more total) -Eliquis 5 mg twice per day -Tamsulosin 0.4 mg PO daily - Metoprolol 50 mg PO Twice per day -Norvasc 5 mg PO daily -Lisinopril 20 mg PO daily -Lipitor 10 mg PO daily -Levemir 24 units twice per day, once in the morning and once in the evening -4L of O2 via Nasal Cannula (though your nose) -Insulin Aspart on a sliding scale as below, check your sugar before each meal and at bedtime and administer the following doses before each meal: Measured Sugar Units of Sliding Scale Aspart Coverage 100-150 0 units 151-200 2 units 201-250 4 units 251-300 6 units 301-350 8 units 351-400 10 units 400+ 12 units and call your doctor [facility] [address] Funes-Please call and make an appointment this week. [phone] Urology Clinic: Dr Dial [phone] Referrals: Tan Dial MD [Staff Physician] - 1 Week Greg Funes MD [Staff Physician] - 1 Week Disposition: CARE HOME FACILITY - Home Medications Comprehensive Discharge Medication List: Ambulatory Orders Amlodipine Besylate 5 mg PO DAILY 03/26/18 Aspirin [Adult Aspirin] 81 mg PO DAILY 03/26/18 Cholecalciferol (Vitamin D3) [Vitamin D3] 5,000 unit PO WEEKLY 03/26/18 Simvastatin 20 mg PO DAILY 03/26/18 Lisinopril 20 mg PO DAILY #30 tablet 04/14/18 Metoprolol Tartrate 50 mg PO BID #60 tablet 04/14/18 Miscellaneous Drug Not in Syst 1 each IH DAILY #1 each 04/14/18 Amox-Tr/K Cl [Augmentin 875-125mg Tablet -] 1 tab PO BID@0800,1730 tablet 04/15 Apixaban [Eliquis -] 5 mg PO BID tablet 04/15/18 Insulin (Levemir) [Levemir Vial] 24 units SQ BID@0700,2200 units 04/15/18 Insulin Sliding Scale [Novolog Vial Sliding Scale -] 1 vial SQ ACHS units 04/15 Tamsulosin HCl [Flomax -] 0.4 mg PO DAILY@0830 cap.er.24h 04/15/18 This patient is new to me today: No Emergency Visit: Yes ED Registration Date: 03/25/18 Care time: The patient presented to the Emergency Department on the above date and was hospitalized for further evaluation of their emergent condition. Critical Care patient: No - Discharge Referral Referred to [facility] Med P.C.: No
--- NOTE | 2018-04-15 15:14 | PN ---
Teaching Attending Note Name of Resident: Joe Larkin ATTENDING PHYSICIAN STATEMENT I saw and evaluated the patient. I reviewed the resident's note and discussed the case with the resident. I agree with the resident's findings and plan as documented. SUBJECTIVE:asymptomatic. denies CP, SOB, fever, chills, N/V/C/D OBJECTIVE: Last Vital Signs Temp Pulse Resp BP Pulse Ox 97.2 F L 77 20 153/78 93 L 04/15/18 06:00 04/15/18 06:00 04/15/18 06:00 04/15/18 06:00 04/14/18 22:00 General NAD CV S1 S2 RRR no murmur/rub/gallop Lungs CTA B/L no wheezing/rales/rhonchi ASSESSMENT AND PLAN: 62 Y/O M with PMHx uncontrolled DM, HTN, HLD P/W SOB for 5 days, found to be in hypoxic respiratory failure and sepsis due to PNA, intubated for hypoxic respiratory failure, newly dxed Afib. 1. Acute Hypoxic respiratory failure- due to multilobar PNA. s/p extubation 06/05. currently 91% on 4L NC. will need to be assessed prior to d/c from SNF if requires supplemental o2 at home. incentive spirometer, chest PT 2. sepsis due to Multi-lobar PNA- +legionella. with complication for development of likely aspiration PNA. competed course of levaquin and completed Zosyn now on augmentin day2/3. ID on board 3. MRSA wound infection- completed abx course. cont local wound care 4. Afib with RVR- new onset. currently in NSR. rate controlled. on eliquis. cardio on board. 5. Prolonged Qtc- avoid QT prolonging agents. now resolved. 6. DM-A1c 11.5. improved here will need insulin on discharge. titrate levemir to optimize control. ISS and BGM. 7. SONIDO- due to hypoperfusion. resolved. avoid nephrotoxic agents 8. HTN- above goal. increase lisinopril. titrate medications 9. DVT ppx- eliquis 10. medically optimized for discharge. awaiting bed availability at [facility]
[2018-04-15] MEDS: ATORVASTATIN CA 10 MG TABLET (FP) PO SCH (22:01)
[2018-04-16] MEDS: INSULIN SLIDING SCALE (NOVOLOG) 1 VIAL SQ SCH ×3 (00:01→12:25)
[2018-04-16] MEDS: INSULIN (LEVEMIR) 100 UNITS/ML UNITS SQ SCH (09:00)
[2018-04-16] MEDS: AMOX TR/POT CLAV 875MG/125MG TABLETS (FP) PO SCH (09:55)
[2018-04-16] MEDS: TAMSULOSIN HCL 0.4 MG CAP PO SCH (09:55)
[2018-04-16] MEDS: AMINO ACIDS/PROTEIN HYDROLYS 30 ML LIQUID.PKT PO SCH (09:55)
[2018-04-16] MEDS ORDERED: PT OWN MED DRAWER 7, Y5N ONE (10:10)
[2018-04-16] MEDS: FERROUS SO4 325 MG TABLET (FP) PO SCH (10:16)
[2018-04-16] MEDS: LISINOPRIL 10 MG TABLET (FP) PO SCH (10:16)
[2018-04-16] MEDS: APIXABAN 5 MG TABLET PO SCH (10:17)
[2018-04-16] MEDS: METOPROLOL TARTRATE 50 MG TABLET (FP) PO SCH (10:18)
[2018-04-16] MEDS: LACTOBACILLUS ACIDOPHILUS 1 TABLET PO SCH (10:18)
[2018-04-16] MEDS: amLODIPine BESYLATE 10 MG TABLET (FP) PO SCH (10:18)
[2018-04-16] MEDS: POLYETHYLENE GLYCOL 3350 119 GM BTL PO SCH (10:31)
--- NOTE | 2018-04-16 11:19 | PN ---
Progress Note (short form) - Note Progress Note: Chief Complaint: resp failure History of Present Illness: no cp sob palps dizzy Current Medications Generic Name Dose Route Start Last Admin Trade Name Pollo PRN Reason Stop Dose Admin Acetaminophen 650 mg 04/05/18 20:39 04/07/18 16:39 Tylenol - PO 650 mg Q6H PRN Administration PAIN LEVEL 4 - 6 Amino Acids 30 ml 04/06/18 08:00 04/16/18 09:55 Prosource No Carb Liquid Pkt PO 30 ml BID@0800,1730 [facility] Administration Amlodipine Besylate 10 mg 04/15/18 09:17 04/16/18 10:18 Norvasc - PO 10 mg DAILY [facility] Administration Amoxicillin/Clavulanate Potassium 1 tab 04/14/18 08:00 04/16/18 09:55 Augmentin - 875mg Tablet PO 04/16/18 17:30 1 tab BID@0800,1730 [facility] Administration Apixaban 5 mg 04/09/18 22:00 04/16/18 10:17 Eliquis - PO 5 mg BID [facility] Administration Atorvastatin Calcium 10 mg 04/05/18 22:00 04/15/18 22:01 Lipitor - PO 10 mg HS [facility] Administration Ferrous Sulfate 325 mg 04/10/18 10:00 04/16/18 10:16 Feosol - PO 325 mg DAILY [facility] Administration Insulin Aspart 1 vial 04/05/18 22:00 04/16/18 06:29 Novolog Vial Sliding Scale - SQ Not Given ACHS [facility] Protocol Insulin Detemir 24 units 04/05/18 22:00 04/15/18 22:01 Levemir Vial SQ 24 unit BID@0700,2200 [facility] Administration Lactobacillus Acidophilus 1 tab 04/06/18 10:00 04/16/18 10:18 Bacid - PO 1 tab DAILY [facility] Administration Lisinopril 20 mg 04/12/18 12:47 04/16/18 10:16 Prinivil PO 20 mg DAILY [facility] Administration Metoprolol Tartrate 5 mg 04/05/18 20:39 Lopressor Injection - IVPUSH Q4H PRN HYPERTENSION Metoprolol Tartrate 50 mg 04/06/18 22:00 04/16/18 10:18 Lopressor - PO 50 mg BID [facility] Administration Polyethylene Glycol 17 gm 04/08/18 11:45 04/16/18 10:31 Miralax (For Daily Use) - PO 17 grams DAILY [facility] Administration Tamsulosin HCl 0.4 mg 04/10/18 08:30 04/16/18 09:55 Flomax - PO 0.4 mg DAILY@0830 [facility] Administration Zinc Oxide/Panthenol/Vitamin E 1 applic 04/05/18 20:39 Balmex Cream - TP ASDIR PRN HYGEINE - Objective Vital Signs: Vital Signs Period Temp Pulse Resp BP Sys/Santacruz Pulse Ox Last 24 Hr 98.0 F-98.1 F 65-66 -18 128-155/69-78 93-93 Constitutional: Yes: No Distress, Calm Cardiovascular: Yes: Regular Rate and Rhythm, S1, S2, No: Gallop, Murmur Respiratory: Yes: cta bl No: Accessory Muscle Use Gastrointestinal: Yes: Normal Bowel Sounds, Soft. No: Tenderness Extremities: No: Cold Edema: No Integumentary: No: Jaundice diaphoresis Neurological:awake alert appropriate Psychiatric: No: Agitated CBC, BMP 04/12/18 05:45 04/12/18 05:45 ct chest: b/l pna ecg: afib vr 154, no ischemic changes, nl qtc ecg 03/30 sinus, QTc 403 (stable) echo 03/18: nl LVSF. nl RV. nl LA. mild MR/TR. RVSP 30-40 a/p: 62 m hx dm, hld, htn here with fever, leg wound. sepsis, PNA, acute resp failure: - has sahu abscess as well as b/l pna - was intubated, now extubated and transferred to floor, bp stable - lung exam improved - s/p abx afib, rvr: -pt denies hx afib -in er started on dilt gtt and amio gtt-->sinus -cont metoprolol -chadsvasc 2 warrants ac, cont eliquis SONIDO: -bun/creat up 03/27, ? intravasc vol depletion in setting of DKA -improved with IVF htn: -cont current meds cardiac stephenson stable for dc
[2018-04-16 14:02] VITALS: BP 125/64; PULSE 55; TEMP 98.1
== END 2018-04-16 14:39 | DRG 720 ==
LOC: JER 19:13 → JERBED 21:27 → JICU 03-26 14:51 → J4S 04-05 19:45 → UNDODISIN 04-16 01:18
PROVIDERS: ADMIT Internal Medicine; ATTEND Internal Medicine
PROC: 0J9N0ZX Drainage of Right Lower Leg Subcutaneous Tissue and Fascia, Open Approach, Diagnostic (ICD-10-PCS; principal; 2018-03-25)
PROC: 05HM33Z Insertion of Infusion Device into Right Internal Jugular Vein, Percutaneous Approach (ICD-10-PCS; 2018-03-25)
PROC: 0BH17EZ Insertion of Endotracheal Airway into Trachea, Via Natural or Artificial Opening (ICD-10-PCS; 2018-03-25)
PROC: 5A1955Z Respiratory Ventilation, Greater than 96 Consecutive Hours (ICD-10-PCS; 2018-03-25)
DX: A41.02 Sepsis due to Methicillin resistant Staphylococcus aureus (principal); J96.01 Acute respiratory failure with hypoxia; A48.1 Legionnaires' disease; N17.9 Acute kidney failure, unspecified; I10 Essential (primary) hypertension; E78.5 Hyperlipidemia, unspecified; R00.0 Tachycardia, unspecified; E11.65 Type 2 diabetes mellitus with hyperglycemia; L02.415 Cutaneous abscess of right lower limb; I48.91 Unspecified atrial fibrillation; D72.829 Elevated white blood cell count, unspecified; E87.1 Hypo-osmolality and hyponatremia; E11.10 Type 2 diabetes mellitus with ketoacidosis without coma; E87.2 Acidosis; E88.09 Other disorders of plasma-protein metabolism, not elsewhere classified; J98.11 Atelectasis; J90 Pleural effusion, not elsewhere classified; D64.9 Anemia, unspecified; I45.81 Long QT syndrome; R65.20 Severe sepsis without septic shock; E66.9 Obesity, unspecified; Z68.29 Body mass index [BMI] 29.0-29.9, adult; J80 Acute respiratory distress syndrome; R13.10 Dysphagia, unspecified; N47.1 Phimosis; R33.9 Retention of urine, unspecified; E87.6 Hypokalemia; Z79.01 Long term (current) use of anticoagulants; E87.0 Hyperosmolality and hypernatremia
CPT/HCPCS: 36415; 36600; 71045-TC-FY; 71250-TC; 72192-TC; 74150-TC; 74230-TC-FY; 80048; 80053; 80061; 81003; 81015; 82272; 82375; 82803; 82947; 82962; 83036; 83050; 83605; 83721; 83735; 84100; 84134; 84439; 84443; 84481; 84484; 85025; 85027; 85610; 85651; 85730; 86140; 86480; 86713; 86738; 86850; 86900; 86901; 87040; 87070; 87086; 87186; 87205; 87389; 87522; 87804; 87899; 90715; 92611-GN; 93005; 93010; 93306-TC; 94002; 94660; 94761; 97116-GP; 99285-25; G0480; J0131; J1644; J7030